=== PATIENT | male | born 1950 | race Caucasian/White ===

== ENCOUNTER 2018-06-02 22:47 | Inpatient (IN) ==
--- NOTE | 2018-06-03 01:55 | CT ---
EXAM DATE: 06/03/2018 1:37 AM EST AGE/SEX: 68 years / Male INDICATIONS: Altered mental status. CLINICAL DATA: This is the patient's initial encounter. Patient reports that signs and symptoms have been present for 1 day and indicates a pain score of Nonresponsive. MEDICAL/SURGICAL HISTORY: Non-responsive. Non-responsive. RADIATION DOSE: 56.35 CTDI (mGy) COMPARISON: . TECHNIQUE: CT of the head without contrast. Using automated exposure control and adjustment of the mA and/or kV according to patient size, radiation dose was kept as low as reasonably achievable to ob tain optimal diagnostic quality images. DICOM format image data is available electronically for revi ew and comparison. FINDINGS: There is an area of acute hemorrhage involving the upper right cerebellum and extending between the m idbrain and upper mercedes and medial temporal lobe. Hemorrhage may have originated in the medial temporo -occipital region and extended inferiorly. There is some mild mass effect on the right side of the br ainstem. Remainder the brain is unremarkable. CONCLUSION: 1. Hemorrhage along the posterior aspect of the brainstem as above measuring up to 2.8 cm in maximal diameter. Mild mass effect on the brainstem. No hydrocephalus. Paranasal sinuses are clear. No acute bony abnormality. Electronically signed by: Jeff Gaona MD 06/03/2018 1:54 AM EST
[2018-06-03 02:13] LABS: ABG Base Excess -5.6 mmol/L (-2-2); ABG PCO2 25 mmHg (38-42); ABG PO2 79 mmHg (61-120)
[2018-06-03] MEDS ORDERED: Bisacodyl 10 MG Supp RECTAL PRN (02:21)
[2018-06-03] MEDS ORDERED: niCARdipine Inj 25 MG in Sodium Chlor 0.9% Inj 240 ML IV.CONT PRN (02:28)
--- NOTE | 2018-06-03 02:44 | XR ---
EXAM DATE: 06/03/2018 2:19 AM EST AGE/SEX: 68 years / Male INDICATIONS: Shortness of breath, admit chest x-ray. CLINICAL DATA: This is the patient's initial encounter. Patient reports that signs and symptoms have been present for 1 day and indicates a pain score of Nonresponsive. MEDICAL/SURGICAL HISTORY: Non-responsive. Non-responsive. COMPARISON: No prior exams available for comparison. FINDINGS: A single AP view of the chest demonstrates the lungs to be symmetrically aerated without evidence of mass, infiltrate or effusion. The cardiomediastinal contours are unremarkable. Osseous structures a re intact. CONCLUSION: Negative examination. Electronically signed by: Jeff Gaona MD 06/03/2018 2:43 AM EST
[2018-06-03] MEDS ORDERED: Sodium Bicarbonate 8.4% Inj 50 MEQ/50 ML Syringe IV.PUSH ONE (03:03)
--- NOTE | 2018-06-03 03:06 | P.HPCC ---
History of Present Illness Primary Care Physician: UNKNOWN Chief Complaint: Altered mental status History of Present Illness: Patient is a 68-year-old male with past medical history significant for type 2 diabetes, hypertension, morbid obesity who presented to the [facility] emergency department with weakness and slurred speech. Symptoms present for 2 days, apparently he was found on the floor of his mobile home. He was noted to have high fever at the [facility] his WBC count was 21.3 UA was positive. His sodium was 134 BUN 50 with a creatinine of 2.33 bicarb was 16 lactic acid was 6.8. CPK more than 3000 at the outside hospital. A CT of the head showed focal hemorrhage into the right quadrigeminal plate cistern. Dr. Hopkins was contacted who accepted the patient and requested admission to critical care. Patient was accepted to [facility] at [place] I evaluated the patient in the [facility], he is lying in the bed. Slightly tachypneic moderate distress. Patient is oriented to place and person. CT of the head repeated here at [place] showed hemorrhage along the posterior aspect of the brainstem measuring up to 2.8 cm in maximal diameter. Mild mass effect on the brainstem. No hydrocephalus. I have started the patient on Cardene infusion for tight blood pressure control. Zosyn for UTI. 2% saline will be started to keep sodium above 150. Avoid mannitol due to renal failure. Keppra for seizure prophylaxis. I am unable to find coags but platelet count was normal - Diagnosis (1) Brain stem hemorrhage (2) Encephalopathy acute (3) Acute kidney failure (4) Severe sepsis (5) Metabolic acidemia (6) UTI (urinary tract infection) (7) Lactic acidosis (8) Rhabdomyolysis (9) Obesity (10) Hypertension (11) Diabetes Inpatient Certification: I certify that the inpatient services were ordered in accordance with Medicare regulations governing the order. This includes certification that hospital inpatient services are reasonable and necessary and in the case of services not specified as inpatient-only under 42 CFR 419.22(n), that they are appropriately provided as inpatient services in accordance to with the 2-midnight benchmark under 43 CFR 412.3(e) Estimated Total Length of Stay (Days): 7 Plans for Post Hospital Care: Not yet determined Review of Systems All other systems reviewed negative except as stated in [facility] - History History Provided By: Patient - Tobacco History Tobacco Use In Past 30 Days: Yes Smoking Status: Smoker, status unknown Tobacco Type: Cigarettes - Alcohol History How Often Do You Have a Drink Containing Alcohol: Never - Substance Use History Substance History: No History of Abuse Medications and Allergies Active Medications: Active Medications Acetaminophen (Tylenol) 650 mg PO Q6H PRN PRN Reason: PAIN 1-10 AND/OR FEVER >101F Al Hydroxide/Mg Hydroxide (Milk Of Magnesia Liq) 30 ml PO Q12H PRN PRN Reason: Mild Constipation Albuterol (Duoneb Neb (Prn)) 1 ampul NEB Q2HR NEB PRN PRN Reason: WHEEZING Bisacodyl (Dulcolax Supp) 10 mg RECTAL DAILY PRN PRN Reason: SEVERE CONSITIPATION Chlorhexidine Gluconate (Chlorhexidine 2% Cloth) 3 pack TOPICAL DAILY@0400 JACOB Stop: 06/08/18 03:59 Chlorhexidine Gluconate (Chlorhexidine 2% Cloth) 3 pack TOPICAL DAILY@0400 PRN PRN Reason: Extra cloth needed Stop: 06/08/18 03:59 Famotidine (Pepcid Pf Inj) 20 mg IV.PUSH Q12HR JACOB Sodium Chloride (Ns Inj) 1,000 mls @ 84 mls/hr IV.CONT .[id number] JACOB Nicardipine HCl 25 mg/ Sodium (Chloride) 250 mls @ 50 mls/hr IV.CONT TITRATE PRN; Protocol PRN Reason: Per Protocol Lactulose (Lactulose Liq) 30 ml PO DAILY PRN PRN Reason: SEVERE CONSITIPATION Senna/Docusate Sodium (Shasha-Colace) 1 tab PO BID [facility] Sennosides (Senokot) 17.2 mg PO Q12H PRN PRN Reason: Moderate Constipation Sodium Chloride (Ns Flush) 2 ml IV.FLUSH BID JACOB Sodium Chloride (Ns Flush) 2 ml IV.FLUSH PRN PRN PRN Reason: FLUSH AFTER USING IV ACCESS Allergies Allergy/AdvReac Type Severity Reaction Status Date / Time No Known Allergies Allergy Verified 06/03/18 01:32 Results - Imaging Impressions Chest X-Ray 06/03/18 00:00 CONCLUSION: Negative examination. Head CT 06/03/18 00:00 CONCLUSION: 1. Hemorrhage along the posterior aspect of the brainstem as above measuring up to 2.8 cm in maximal diameter. Mild mass effect on the brainstem. No hydrocephalus. Paranasal sinuses are clear. No acute bony abnormality. Exam Vital signs: Vital Signs 06/03/18 01:00 Pulse Rate 99 H Intake & Output 06/02/18 06/02/18 06/03/18 06:59 18:59 06:59 Weight 133 kg Other: Date of Last Bowel Movement 06/02/18 Weight On Admission 133.5 kg Narrative: GENERAL: 68-year-old male lying in ICU bed in moderate distress, tachypneic SKIN: Focused skin assessment warm/dry. HEAD: Atraumatic. Normocephalic. EYES: Pupils equal and round. No scleral icterus. No injection or drainage. ENT: No nasal bleeding or discharge. Oral cavity dry NECK: Trachea midline. No JVD. CARDIOVASCULAR: S1-S2 distant. No murmurs. Hypotensive RESPIRATORY: No accessory muscle use, but tachypneic. Air entry diminished at the bases GASTROINTESTINAL: Abdomen soft, non-tender, nondistended. MUSCULOSKELETAL: No obvious deformities. No clubbing. No cyanosis. No edema. NEUROLOGICAL: Awake and alert oriented to person and place slightly slurred speech no obvious cranial nerve deficits. Motor grossly within normal limits although there is generalized weakness. Septic Shock Reassessment Septic shock perfusion: reassessment completed Caprini VTE Risk Assessment Caprini VTE Risk Assessment: Moderate/High Risk (score >= 2) Caprini Risk Assessment Model: Point Value = 1 Point Value = 2 Point Value = 3 Point Value = 5 Age 41-60 Minor surgery BMI > 25 kg/m2 Swollen legs Varicose veins or History of unexplained or recurrent spontaneous Oral contraceptives or hormone replacement Sepsis (< 1 month) Serious lung disease, including pneumonia (< 1 month) Abnormal pulmonary function Acute myocardial infarction Congestive heart failure (< 1 month) History of inflammatory bowel disease Medical patient at bed rest Age 61-74 Arthroscopic surgery Major open surgery (> 45 min) Laparoscopic surgery (> 45 min) Malignancy Confined to bed (> 72 hours) Immobilizing plaster cast Central venous access Age >= 75 History of VTE Family history of VTE Factor V Leiden Prothrombin [id number] Lupus anticoagulant Anticardiolipin antibodies Elevated serum homocysteine Heparin-induced thrombocytopenia Other congenital or acquired thrombophilia Stroke (< 1 month) Elective arthroplasty Hip, pelvis, or leg fracture Acute spinal cord injury (< 1 month) Prophylaxis Regimen: Total Risk Factor Score Risk Level Prophylaxis Regimen 0-1 Low Early ambulation 2 Moderate Order ONE of the following: *Sequential Compression Device (SCD) *Heparin 5000 units SQ BID 3-4 Higher Order ONE of the following medications: *Heparin 5000 units SQ TID *Enoxaparin/Lovenox 40 mg SQ daily (WT < 150 kg, CrCl > 30 mL/min) *Enoxaparin/Lovenox 30 mg SQ daily (WT < 150 kg, CrCl > 10-29 mL/min) *Enoxaparin/Lovenox 30 mg SQ BID (WT < 150 kg, CrCl > 30 mL/min) AND/OR *Sequential Compression Device (SCD) 5 or more Highest Order ONE of the following medications: *Heparin 5000 units SQ TID (Preferred with Epidurals) *Enoxaparin/Lovenox 40 mg SQ daily (WT < 150 kg, CrCl > 30 mL/min) *Enoxaparin/Lovenox 30 mg SQ daily (WT < 150 kg, CrCl > 10-29 mL/min) *Enoxaparin/Lovenox 30 mg SQ BID (WT < 150 kg, CrCl > 30 mL/min) AND *Sequential Compression Device (SCD) Assessment and Plan - Problem List (1) 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 Status: Acute (2) Encephalopathy acute Code(s): G93.40 - Encephalopathy, unspecified Status: Acute (3) Acute kidney failure Code(s): N17.9 - Acute kidney failure, unspecified Status: Acute (4) Severe sepsis Code(s): A41.9 - Sepsis, unspecified organism; R65.20 - Severe sepsis without septic shock Status: Acute (5) Metabolic acidemia Code(s): E87.2 - Acidosis Status: Acute (6) UTI (urinary tract infection) Code(s): N39.0 - Urinary tract infection, site not specified Status: Acute (7) Lactic acidosis Code(s): E87.2 - Acidosis Status: Acute (8) Rhabdomyolysis Code(s): M62.82 - Rhabdomyolysis Status: Acute (9) Obesity Code(s): E66.9 - Obesity, unspecified Status: Chronic (10) Hypertension Code(s): I10 - Essential (primary) hypertension Status: Chronic (11) Diabetes Code(s): E11.9 - Type 2 diabetes mellitus without complications Status: Chronic - Assessment and Plan Plan: NEURO: Brainstem hemorrhage measuring up to 2.8 cm in maximal diameter, mild mass effect Acute encephalopathy -Repeat CT findings as above, may need CT angiogram of brain and neck once creatinine is improved -Neurosurgery Dr. Hopkins consult -Check coags -2% saline to keep sodium 150-155 -Close neuro monitoring -If he develops hydrocephalus will need EVD -Likely hypertensive bleed -Placed on Keppra for seizure prophylaxis RESP: Past smoking -DuoNeb every as needed -Monitor closely for airway protection -At high risk for respiratory decompensation and requiring intubation CV: Lactic acidemia History of hypertension -Lactic acid at the outside hospital was 6.8 -Normal saline IV fluids, check 2d echo -IV fluid normal saline and 2% saline -Cardene infusion to keep blood pressure less than 140/90 GI: -N.p.o., IV famotidine : Acute kidney failure Rhabdomyolysis -Monitor renal function closely. Place [place] catheter. -IV fluid resuscitation and maintenance fluid as above -Check renal ultrasound ID: Severe sepsis/septic shock UTI -Antibiotics with Zosyn renally dosed -Blood urine cultures HEME: Leukocytosis secondary to sepsis -Monitor CBC, coags ENDO: Type 2 diabetes -Sliding scale insulin PROPH: -Bilateral lower extremity SCDs. IV famotidine. Chemical DVT prophylaxis is contraindicated LINES: -Utilize peripheral IVs, central line if needed CC time 82 min Code Status: Full H&P: Quality - VTE Deep Vein Thrombosis/Pulmonary Embolism Present on Admission: No (1) Brain stem hemorrhage Qualifiers: Intracerebral hemorrhage etiology: nontraumatic
[2018-06-03] MEDS: Sod Chloride 0.9% Inj 1,000 ML IV.CONT SCH ×2 (03:32→14:30)
[2018-06-03] MEDS: Chlorhexidine Gluconate 2% 1 Pack (2 Cloths) TOPICAL SCH (03:33)
[2018-06-03] MEDS ORDERED: Dextrose 50% in Water 50 ML Vial IV.PUSH PRN (03:34)
[2018-06-03] MEDS ORDERED: Chlorhexidine Gluconate 2% 1 Pack (2 Cloths) TOPICAL PRN (04:00)
[2018-06-03] MEDS: Piperacil/Tazo 3.375 GM Premix 50 ML IV.SIG SCH ×3 (04:26→20:30)
[2018-06-03] MEDS: Sodium Chloride 23.4% Inj 188 MEQ in Sod Chloride 0.9% Inj 1,000 ML IV.CONT SCH (04:26)
[2018-06-03] MEDS: Sod Chloride 0.9% Inj 1,000 ML IV.SIG SCH ×2 (04:47→05:05)
[2018-06-03] MEDS: Insulin NovoLIN Regular Correctional Sugar Inj SQ SCH ×6 (04:48→23:52)
[2018-06-03 05:54] LABS: Hematocrit 33.1 % (39.0-51.0); Hemoglobin 11.2 gm/dL (13.0-17.0); Mean Corpuscular HGB Conc 33.8 % (32.0-36.0); Mean Corpuscular Hemoglobin 29.8 pg (27.0-34.0); Mean Corpuscular Volume 88.1 fL (80.0-100.0); Mean Platelet Volume 8.6 fL (7.0-11.0); Platelet Count 97 th/mm3 (150-450); Red Blood Count 3.76 mil/mm3 (4.50-5.90); Red Cell Distribution Width 16.1 % (11.6-17.2); White Blood Count 11.5 th/mm3 (4.0-11.0)
[2018-06-03 06:10] LABS: Amorphous Sediment,Urine Occasional /hpf; Bacteria,Urine Rare /hpf; Bilirubin,Urine Negative (Negative); Clarity,Urine Hazy (Clear); Color,Urine Yellow (Yellw/Straw); Glucose,Urine (UA) 50 mg/dL (Negative); Leukocyte Esterase,Urine Small (Negative); Mucus,Urine Few /lpf (Occasional); Nitrite,Urine Negative (Negative); Specific Gravity,Urine 1.019 (1.002-1.035); Squamous Epithelial Cell,Urine <1 /hpf (0-5)
[2018-06-03 06:19] LABS: Albumin 2.4 g/dL (3.4-5.0); Calcium 7.2 mg/dL (8.5-10.1); Carbon Dioxide 19.6 meq/L (21.0-32.0); Magnesium 2.2 mg/dL (1.5-2.5); Potassium 3.5 meq/L (3.5-5.1)
[2018-06-03] MEDS ORDERED: Labetalol HCl Inj 20 MG/4 ML Vial IV.PUSH PRN (08:17)
--- NOTE | 2018-06-03 08:34 | P.CONNS ---
History of Present Illness Service: neurosurgery Consult date: 06/03/18 Requesting Physician: Loco Deluca Reason for Consult: brainstem hemorrhage Primary Care Provider: UNKNOWN Chief Complaint: Altered mental status History of Present Illness: this is a 68-year-old male with past medical history of type 2 diabetes, hypertension, morbid obesity who presented to the [facility] emergency department with weakness and slurred speech. Symptoms present for 2 days, apparently he was found on the floor of his mobile home. He was noted to have high fever at the [facility] his WBC count was 21.3 UA was positive. His sodium was 134 BUN 50 with a creatinine of 2.33 bicarb was 16 lactic acid was 6.8. he had multi[ple problems including metabolic acidosis, Urine infection, and renal failure. No LOC. No seizure activity. no tongue bitting. no incontinence of stool or urine. he was lethargic A CT of the head showed focal hemorrhage into the right quadrigeminal plate cistern. Neurosurgery consultation was requested His family history was reviewed and was noncontributory to this admission Review of Systems All other systems reviewed negative except as stated in HPI PMFSH - History History Provided By: Patient - Medical History Medical History: Medical History (Last Reviewed 06/06/18 @ 14:02 by Karthik Hopkins MD) Diabetes History of MRSA infection Onset Date: ~06/03/18 Hypertension Obesity UTI (urinary tract infection) - Tobacco History Tobacco Use In Past 30 Days: Yes Smoking Status: Smoker, status unknown Tobacco Type: Cigarettes - Alcohol History How Often Do You Have a Drink Containing Alcohol: Never - Substance Use History Substance History: No History of Abuse Medications and Allergies Active Medications: Active Medications Acetaminophen (Tylenol) 650 mg PO Q6H PRN PRN Reason: PAIN 1-10 AND/OR FEVER >101F Al Hydroxide/Mg Hydroxide (Milk Of Magnesia Liq) 30 ml PO Q12H PRN PRN Reason: Mild Constipation Albuterol (Duoneb Neb (Prn)) 1 ampul NEB Q2HR NEB PRN PRN Reason: WHEEZING Bisacodyl (Dulcolax Supp) 10 mg RECTAL DAILY PRN PRN Reason: SEVERE CONSITIPATION Chlorhexidine Gluconate (Chlorhexidine 2% Cloth) 3 pack TOPICAL DAILY@0400 [facility] Stop: 06/08/18 03:59 Last Admin: 06/03/18 03:33 Dose: 3 pack Chlorhexidine Gluconate (Chlorhexidine 2% Cloth) 3 pack TOPICAL DAILY@0400 PRN PRN Reason: Extra cloth needed Stop: 06/08/18 03:59 Dextrose (D50w Vial) 50 ml IV.PUSH UNSCH PRN PRN Reason: PER HYPOGLYCEMIA PROTOCOL Famotidine (Pepcid Pf Inj) 20 mg IV.PUSH Q12HR JACOB Glucagon (Glucagon Inj) 1 mg OTHER PRN PRN PRN Reason: for Hypoglycemia Protocol Sodium Chloride (Ns Inj) 1,000 mls @ 84 mls/hr IV.CONT .[id number] JACOB Last Admin: 06/03/18 03:32 Dose: 84 mls/hr Piperacillin/Tazobactam/Dextrose (Zosyn 3.375 Gm Premix) 50 mls @ 100 mls/hr IV.SIG Q8H JACOB Last Infusion: 06/03/18 05:07 Dose: Infused Sodium Chloride 188 meq/ (Sodium Chloride) 1,047 mls @ 42 mls/hr IV.CONT .Q24H JACOB Last Admin: 06/03/18 04:26 Dose: 42 mls/hr Levetiracetam 500 mg/ Sodium (Chloride) 105 mls @ 400 mls/hr IV.SIG Q12H JACOB Last Infusion: 06/03/18 05:08 Dose: Infused Insulin Human Regular (Novolin R Correctional Sugar Inj) 0 units SQ Q4HR JACOB; Protocol Last Admin: 06/03/18 04:48 Dose: 1 units Labetalol HCl (Trandate Inj) 10 mg IV.PUSH Q2H PRN PRN Reason: BP > 140/90 Lactulose (Lactulose Liq) 30 ml PO DAILY PRN PRN Reason: SEVERE CONSITIPATION Senna/Docusate Sodium (Shasha-Colace) 1 tab PO BID [facility] Sennosides (Senokot) 17.2 mg PO Q12H PRN PRN Reason: Moderate Constipation Sodium Chloride (Ns Flush) 2 ml IV.FLUSH BID JACOB Sodium Chloride (Ns Flush) 2 ml IV.FLUSH PRN PRN PRN Reason: FLUSH AFTER USING IV ACCESS Allergies Allergy/AdvReac Type Severity Reaction Status Date / Time No Known Allergies Allergy Verified 06/03/18 01:32 Exam Vital signs: Vital Signs 06/03/18 01:00 06/03/18 01:08 06/03/18 01:10 Temperature Pulse Rate 99 H Respiratory Rate Blood Pressure Pulse Oximetry 78 L 78 L 06/03/18 01:14 06/03/18 01:29 06/03/18 01:44 Temperature Pulse Rate 105 H 107 H Respiratory Rate 34 H 32 H Blood Pressure 142/73 H 142/74 H 147/74 H Pulse Oximetry 98 100 06/03/18 01:59 06/03/18 02:00 06/03/18 02:14 Temperature Pulse Rate 101 H 101 H 102 H Respiratory Rate 32 H 31 H 31 H Blood Pressure 130/65 126/65 Pulse Oximetry 98 98 98 06/03/18 02:29 06/03/18 02:44 06/03/18 02:59 Temperature Pulse Rate 98 H 104 H 107 H Respiratory Rate 30 H 31 H 32 H Blood Pressure 143/72 H 146/74 H 151/74 H Pulse Oximetry 100 100 100 06/03/18 03:00 06/03/18 03:14 06/03/18 03:29 Temperature Pulse Rate 107 H 107 H 109 H Respiratory Rate 34 H 34 H 33 H Blood Pressure 154/74 H 154/72 H Pulse Oximetry 100 98 99 06/03/18 03:44 06/03/18 03:59 06/03/18 04:00 Temperature 99.0 F Pulse Rate 113 H 114 H 115 H Respiratory Rate 35 H 34 H 36 H Blood Pressure 142/64 H 146/70 H Pulse Oximetry 95 96 96 06/03/18 04:14 06/03/18 04:29 06/03/18 04:44 Temperature Pulse Rate 105 H 113 H 115 H Respiratory Rate 29 H 35 H 36 H Blood Pressure 149/71 H 147/63 H 151/70 H Pulse Oximetry 99 97 97 06/03/18 04:59 06/03/18 05:00 06/03/18 05:14 Temperature Pulse Rate 112 H 114 H 106 H Respiratory Rate 36 H 35 H 31 H Blood Pressure 134/56 L 129/63 Pulse Oximetry 95 95 96 06/03/18 05:29 06/03/18 05:44 06/03/18 05:59 Temperature Pulse Rate 112 H 115 H 107 H Respiratory Rate 35 H 35 H 32 H Blood Pressure 135/65 143/68 H 132/57 L Pulse Oximetry 96 96 95 06/03/18 06:00 Temperature Pulse Rate 106 H Respiratory Rate 31 H Blood Pressure Pulse Oximetry 95 Intake & Output 06/02/18 06/03/18 06/03/18 18:59 06:59 18:59 Intake Total 2154 / 5 Output Total 700 / 700 Balance 1455 / 1455 Weight 133 kg Intake: IV 2154 / 2154 Zosyn 3.375 GM Premix 50 ML @ 50 / 50 100 mls/hr IV.SIG Q8H JACOB Rx#: [id number] NS Inj 1,000 ML @ 2000 mls/hr 2000 / 2000 IV.SIG Q30M JACOB Rx#:[id number] Keppra Inj 500 MG In NS Inj 100 105 / 105 ML @ 400 mls/hr IV.SIG Q12H JACOB Rx#:[id number] Oral 0 / 0 Output: Urine Amount (Catheter) 700 / 700 Indwelling Urethral Catheter 700 / 700 Other: Date of Last Bowel Movement 06/02/18 Weight On Admission 133.5 kg Narrative: GENERAL: lying in ICU bed in moderate distress, tachypneic SKIN: Focused skin assessment warm/dry. HEAD: Atraumatic. Normocephalic. EYES: Pupils equal and round. No scleral icterus. No injection or drainage. ENT: No nasal bleeding or discharge. Oral cavity dry NECK: Trachea midline. No JVD. CARDIOVASCULAR: S1-S2 distant. No murmurs. Hypotensive RESPIRATORY: No accessory muscle use, but tachypneic. Air entry diminished at the bases GASTROINTESTINAL: Abdomen soft, non-tender, nondistended. MUSCULOSKELETAL: No obvious deformities. No clubbing. No cyanosis. No edema. NEUROLOGICAL: Awake and alert oriented to person and place slightly slurred speech no obvious cranial nerve deficits. Motor grossly shows generalized weakness. Results - Laboratory Findings CBC and BMP: 06/05/18 04:07 06/06/18 04:13 Abnormal lab findings: Abnormal Labs 06/03/18 06/03/18 06/03/18 02:03 04:43 05:20 WBC 11.5 H RBC 3.76 L Hgb 11.2 L Hct 33.1 L Plt Count 97 L ABG pH 7.46 H ABG pCO2 25 L ABG HCO3 18 L ABG Base Excess -5.6 L Chloride Carbon Dioxide BUN Creatinine Estimated GFR POC Glucose 181 H Random Glucose Calcium Calcium Adj for Albumin AST Alkaline Phosphatase Total Protein Albumin Urine Clarity Urine Protein Urine Occult Blood Ur Leukocyte Esterase Urine RBC Urine WBC Amorphous Sediment Urine Bacteria Urine Mucus 06/03/18 06/03/18 06/03/18 05:20 05:20 08:16 WBC RBC Hgb Hct Plt Count ABG pH ABG pCO2 ABG HCO3 ABG Base Excess Chloride 112 H Carbon Dioxide 19.6 L BUN 46 H Creatinine 1.56 H Estimated GFR 44 L POC Glucose 251 H Random Glucose 200 H Calcium 7.2 L* Calcium Adj for Albumin 7.8 L AST 91 H Alkaline Phosphatase 38 L Total Protein 6.0 L Albumin 2.4 L Urine Clarity Hazy H Urine Protein 30 H Urine Occult Blood Large H Ur Leukocyte Esterase Small H Urine RBC 6 H Urine WBC 44 H Amorphous Sediment Occasional H Urine Bacteria Rare H Urine Mucus Few H Assessment and Plan - Plan 68 year old male - Problem List (1) 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 Status: Acute (2) Encephalopathy acute Code(s): G93.40 - Encephalopathy, unspecified Status: Acute (3) Acute kidney failure Code(s): N17.9 - Acute kidney failure, unspecified Status: Acute (4) Severe sepsis Code(s): A41.9 - Sepsis, unspecified organism; R65.20 - Severe sepsis without septic shock Status: Acute (5) Metabolic acidemia Code(s): E87.2 - Acidosis Status: Acute (6) UTI (urinary tract infection) Code(s): N39.0 - Urinary tract infection, site not specified Status: Acute (7) Lactic acidosis Code(s): E87.2 - Acidosis Status: Acute (8) Rhabdomyolysis Code(s): M62.82 - Rhabdomyolysis Status: Acute (9) Obesity Code(s): E66.9 - Obesity, unspecified Status: Chronic (10) Hypertension Code(s): I10 - Essential (primary) hypertension Status: Chronic (11) Diabetes Code(s): E11.9 - Type 2 diabetes mellitus without complications Status: Chronic I have reviewed the clinical and radiological findings Chest X-Ray 06/03/18 00:00 CONCLUSION: Negative examination. Head CT 06/03/18 00:00 CONCLUSION: 1. Hemorrhage along the posterior aspect of the brainstem as above measuring up to 2.8 cm in maximal diameter. Mild mass effect on the brainstem. No hydrocephalus. Paranasal sinuses are clear. No acute bony abnormality. Brainstem hemorrhage. Neuro checks q1 hr. [address] angiogram of brain and neck once creatinine is improved -Check coags -2% saline to keep sodium 150-155 -Close neuro monitoring -If he develops hydrocephalus will need external ventriculostomy -Likely hypertensive bleed Consult neurology RESP: aggressive pulmonary toilette, nasotracheal suction, and breathing treatments with nebulizers. - Nasal canula or mask -DuoNeb every as needed -Monitor closely for airway protection -At high risk for respiratory decompensation and requiring intubation Lactic acidemia History of hypertension -Lactic acid at the outside hospital was 6.8 -Normal saline IV fluids, check 2d echo -IV fluid normal saline and 2% saline -Cardene infusion to keep blood pressure less than 140/90 Acute kidney failure Rhabdomyolysis -Monitor renal function closely. Place Hays catheter. -IV fluid resuscitation and maintenance fluid as above -Check renal ultrasound Severe sepsis/septic shock UTI -Antibiotics with Zosyn renally dosed -Blood urine cultures HEME: Leukocytosis secondary to sepsis -Monitor CBC, coags ENDO: Type 2 diabetes -Sliding scale insulin PT and OT evaluation Famotidine for stress ulcer prophylaxis Pal hose and SCD's for DVT prophylaxis Caprini VTE Risk Assessment Caprini VTE Risk Assessment: Moderate/High Risk (score >= 2) Caprini Risk Assessment Model: Point Value = 1 Point Value = 2 Point Value = 3 Point Value = 5 Age 41-60 Minor surgery BMI > 25 kg/m2 Swollen legs Varicose veins or History of unexplained or recurrent spontaneous Oral contraceptives or hormone replacement Sepsis (< 1 month) Serious lung disease, including pneumonia (< 1 month) Abnormal pulmonary function Acute myocardial infarction Congestive heart failure (< 1 month) History of inflammatory bowel disease Medical patient at bed rest Age 61-74 Arthroscopic surgery Major open surgery (> 45 min) Laparoscopic surgery (> 45 min) Malignancy Confined to bed (> 72 hours) Immobilizing plaster cast Central venous access Age >= 75 History of VTE Family history of VTE Factor V Leiden Prothrombin [id number] Lupus anticoagulant Anticardiolipin antibodies Elevated serum homocysteine Heparin-induced thrombocytopenia Other congenital or acquired thrombophilia Stroke (< 1 month) Elective arthroplasty Hip, pelvis, or leg fracture Acute spinal cord injury (< 1 month) Prophylaxis Regimen: Total Risk Factor Score Risk Level Prophylaxis Regimen 0-1 Low Early ambulation 2 Moderate Order ONE of the following: *Sequential Compression Device (SCD) *Heparin 5000 units SQ BID 3-4 Higher Order ONE of the following medications: *Heparin 5000 units SQ TID *Enoxaparin/Lovenox 40 mg SQ daily (WT < 150 kg, CrCl > 30 mL/min) *Enoxaparin/Lovenox 30 mg SQ daily (WT < 150 kg, CrCl > 10-29 mL/min) *Enoxaparin/Lovenox 30 mg SQ BID (WT < 150 kg, CrCl > 30 mL/min) AND/OR *Sequential Compression Device (SCD) 5 or more Highest Order ONE of the following medications: *Heparin 5000 units SQ TID (Preferred with Epidurals) *Enoxaparin/Lovenox 40 mg SQ daily (WT < 150 kg, CrCl > 30 mL/min) *Enoxaparin/Lovenox 30 mg SQ daily (WT < 150 kg, CrCl > 10-29 mL/min) *Enoxaparin/Lovenox 30 mg SQ BID (WT < 150 kg, CrCl > 30 mL/min) AND *Sequential Compression Device (SCD)
[2018-06-03] MEDS: Senna/Docusate Sodium 8.6/50 MG Tablet PO SCH ×2 (08:38→20:32)
[2018-06-03] MEDS: Famotidine PF Inj 20 MG/2 ML Vial IV.PUSH SCH ×2 (08:38→20:32)
[2018-06-03] MEDS: Labetalol HCl Inj 100 MG/20 ML Vial IV.PUSH PRN ×4 (08:46→18:52)
--- NOTE | 2018-06-03 09:12 | US ---
EXAM DATE: 06/03/2018 9:07 AM EST AGE/SEX: 68 years / Male INDICATIONS: Increased BUN/Creatinine. CLINICAL DATA: This is the patient's initial encounter. Patient reports that signs and symptoms have been present for 1 day and indicates a pain score of 0/10. MEDICAL/SURGICAL HISTORY: Hypertension. Diabetes. Brain stem hemorrhage. Sepsis. Rhabdomyolysi s. None. COMPARISON: No prior exams available for comparison. MEASUREMENTS: Right Kidney:__11.8 x 7.1 x 6.4 cm Left Kidney:__13.4 x 6.0 x 5.4 cm FINDINGS: Right Kidney: The examination demonstrates a 9.6 x 7.0 x 7.2 cm anechoic cyst arising from the midpol e. There is no hydronephrosis. Renal cortex appears of adequate thickness. Left Kidney: The examination demonstrates a 3.5 x 4.4 x 3.7 cm cyst arising from the midpole. There i s no hydronephrosis. The cortex appears of adequate thickness. Bladder: Hays catheter is present. Bladder decompressed. Other: None. CONCLUSION: 1. Bilateral simple cysts within the kidneys as above. 2. No findings to indicate renal obstruction. 3. Renal cortex appears of adequate thickness. Electronically signed by: Aguilar Knowles MD 06/03/2018 9:11 AM EST
[2018-06-03] MEDS: amLODIPine 10 MG Tablet PO SCH (13:39)
[2018-06-03] MEDS: Metoprolol Inj 5 MG/5 ML Vial IV.PUSH SCH ×2 (14:32→20:31)
[2018-06-03 14:36] LABS: Hematocrit 36.9 % (39.0-51.0); Hemoglobin 12.5 gm/dL (13.0-17.0); Lymph # (Auto) 0.7 th/mm3 (1.0-4.8); Lymph % (Auto) 5.6 % (9.0-44.0); Mean Corpuscular HGB Conc 33.8 % (32.0-36.0); Mean Corpuscular Hemoglobin 30.3 pg (27.0-34.0); Mean Corpuscular Volume 89.4 fL (80.0-100.0); Mean Platelet Volume 9.2 fL (7.0-11.0); Mono # (Auto) 1.7 th/mm3 (0.0-0.9); Mono % (Auto) 13.2 % (0.0-8.0); Neut # (Auto) 10.2 th/mm3 (1.8-7.7); Neut % (Auto) 81.2 % (16.0-70.0); Platelet Count 116 th/mm3 (150-450); Red Blood Count 4.13 mil/mm3 (4.50-5.90); Red Cell Distribution Width 16.4 % (11.6-17.2); White Blood Count 12.5 th/mm3 (4.0-11.0)
--- NOTE | 2018-06-03 14:39 | XR ---
EXAM DATE: 06/03/2018 2:36 PM EST AGE/SEX: 68 years / Male INDICATIONS: Respiratory failure, short of breath CLINICAL DATA: This is the patient's initial encounter. Patient reports that signs and symptoms have been present for 1 day and indicates a pain score of 0/10. MEDICAL/SURGICAL HISTORY: . Hypertension. Diabetes. Brain stem hemorrhage. Sepsis. Rhabdomyolys is None. COMPARISON: [facility] [place] 1[place] SINGLE AP, [place]/03/2018. . FINDINGS: A single AP view of the chest demonstrates the lungs to be symmetrically aerated without evidence of mass, infiltrate or effusion. The cardiomediastinal contours are unremarkable. Osseous structures a re intact. CONCLUSION: Negative examination. Electronically signed by: Aguilar Knowles MD 06/03/2018 2:38 PM EST
[2018-06-03 15:56] LABS: CKMB Percent 0.3 % (0.0-4.0); Creatine Kinase MB 12.2 ng/mL (0.5-3.6)
[2018-06-03] MEDS ORDERED: Potassium Chlor 40 mEq Premix 40 MEQ/100 ML PIGGYBACK IV.SIG PRN ×2 (16:27)
[2018-06-03] MEDS ORDERED: Potassium Phosphate Inj 30 MMOL in Sodium Chlor 0.9% Inj 250 ML IV.SIG PRN (16:27)
[2018-06-03] MEDS ORDERED: Magnesium Sulfate Inj 4 GM in Sodium Chlor 0.9% Inj 92 ML IV.SIG PRN (16:27)
[2018-06-03] MEDS ORDERED: Potassium Chloride 25 MEQ Effervescent Tablet PO PRN (16:27)
[2018-06-03] MEDS ORDERED: Magnesium Oxide 400 MG Tablet PO PRN (16:27)
[2018-06-03] MEDS ORDERED: Potassium Phosphate 500 MG Soluble Tablet PO PRN ×2 (16:27)
[2018-06-03] MEDS ORDERED: Sodium Phosphate Inj 30 MMOL in Sodium Chlor 0.9% Inj 250 ML IV.SIG PRN (16:27)
[2018-06-03] MEDS ORDERED: Potassium Chlor 20 mEq Premix 20 MEQ/100 ML PIGGYBACK IV.SIG PRN (16:27)
[2018-06-03] MEDS ORDERED: Magnesium Sulfate Inj 2 GM in Sodium Chlor 0.9% Inj 96 ML IV.SIG PRN (16:27)
[2018-06-03] MEDS ORDERED: RASS Change Order OTHER ONE (17:00)
--- NOTE | 2018-06-03 18:14 | CT ---
EXAM DATE: 06/03/2018 6:04 PM EST AGE/SEX: 68 years / Male INDICATIONS: Follow up brain stem hemorrhage. CLINICAL DATA: This is the patient's subsequent encounter. Patient reports that signs and symptoms h ave been present for 1 day and indicates a pain score of 0/10. MEDICAL/SURGICAL HISTORY: Hypertension. Diabetes. Renal failure. None. RADIATION DOSE: 64.63 CTDI (mGy) COMPARISON: [facility] – [place], [place] HEAD W/O CONTRAST, 06/03/2018. . TECHNIQUE: CT of the head without contrast. Using automated exposure control and adjustment of the mA and/or kV according to patient size, radiation dose was kept as low as reasonably achievable to ob tain optimal diagnostic quality images. DICOM format image data is available electronically for revi ew and comparison. FINDINGS: The previously noted high density, acute hemorrhage along the right lateral and posterior brain stem is not significantly changed and measures approximately 2.6 x 0.8 cm in diameter. This extends along the midbrain and upper mercedes and medial right temporal lobe. There is no significant edema or mass eff ect. Diffuse atrophic changes are present. There is no new hemorrhage or mass effect. There is no mid line shift. The ventricular system remains within normal limits. Moderate atrophic changes again iden tified. CONCLUSION: 1. Stable appearance of the acute hemorrhage along the right side of the brainstem. . Electronically signed by: Bello Wagner MD 06/03/2018 6:13 PM EST
[2018-06-03] MEDS: Dexmedetomidine Inj 200 MCG in Sodium Chlor 0.9% Inj 48 ML IV.CONT PRN (18:45)
[2018-06-04] MEDS: Dexmedetomidine Inj 200 MCG in Sodium Chlor 0.9% Inj 48 ML IV.CONT PRN ×4 (00:02→22:33)
[2018-06-04] MEDS: Chlorhexidine Gluconate 2% 1 Pack (2 Cloths) TOPICAL SCH (03:27)
[2018-06-04] MEDS: Metoprolol Inj 5 MG/5 ML Vial IV.PUSH SCH ×4 (03:27→21:55)
[2018-06-04] MEDS: Piperacil/Tazo 3.375 GM Premix 50 ML IV.SIG SCH ×3 (03:28→21:54)
[2018-06-04] MEDS: Insulin NovoLIN Regular Correctional Sugar Inj SQ SCH ×5 (03:40→21:52)
[2018-06-04 03:44] LABS: Hematocrit 33.7 % (39.0-51.0); Hemoglobin 11.3 gm/dL (13.0-17.0); Mean Corpuscular HGB Conc 33.5 % (32.0-36.0); Mean Corpuscular Hemoglobin 29.9 pg (27.0-34.0); Mean Corpuscular Volume 89.2 fL (80.0-100.0); Mean Platelet Volume 9.3 fL (7.0-11.0); Platelet Count 91 th/mm3 (150-450); Red Blood Count 3.78 mil/mm3 (4.50-5.90); White Blood Count 8.2 th/mm3 (4.0-11.0)
[2018-06-04 03:52] LABS: INR 1.2 Ratio; Prothrombin Time 12.3 sec (9.8-11.6)
[2018-06-04 04:20] LABS: Albumin 2.2 g/dL (3.4-5.0); Calcium 7.2 mg/dL (8.5-10.1); Carbon Dioxide 20.5 meq/L (21.0-32.0); Lymphocytes 7 % (9-44); Monocytes 9 % (0-8); Platelet Morphology Normal (Normal); Potassium 3.5 meq/L (3.5-5.1)
[2018-06-04 04:21] LABS: Dohle Bodies Present; Toxic Granulation 1+
[2018-06-04 04:22] LABS: Ovalocytes 1+
[2018-06-04 04:31] LABS: Total Protein 6.1 g/dL (6.4-8.2)
--- NOTE | 2018-06-04 04:59 | CT ---
EXAM DATE: 06/04/2018 4:31 AM EST AGE/SEX: 68 years / Male INDICATIONS: Intracranial hemorrhage. CLINICAL DATA: This is the patient's subsequent encounter. Patient reports that signs and symptoms h ave been present for 1 day and indicates a pain score of 0/10. MEDICAL/SURGICAL HISTORY: None. None. RADIATION DOSE: 47.51 CTDI (mGy) [place] [facility] [place]. . TECHNIQUE: CT of the head without contrast. Using automated exposure control and adjustment of the mA and/or kV according to patient size, radiation dose was kept as low as reasonably achievable to ob tain optimal diagnostic quality images. DICOM format image data is available electronically for revi ew and comparison. FINDINGS: Cerebrum: There is mild generalized atrophy and ventricles are normal given the degree of atrophy. M ild periventricular white matter change is present. No midline shift, mass lesion, hemorrhage or acu te infarction. No extraaxial fluid collections are seen. Posterior Fossa: There is stable hyperdensity along the right lateral aspect of the midbrain and jimmy s measuring approximately 2.3 x 0.8 cm. It has minimal local mass effect and has not significantly ch anged. Fourth ventricle is within normal limits. Extracranial: The visualized sinuses are clear. Skull: The calvaria is intact. No skull fracture. CONCLUSION: Stable blood products in the posterior fossa, as above. No other acute abnormality is identified. . Electronically signed by: Yosi Argueta MD 06/04/2018 4:58 AM EST
[2018-06-04 05:00] LABS: CKMB Percent 0.1 % (0.0-4.0); Creatine Kinase MB 3.2 ng/mL (0.5-3.6)
[2018-06-04] MEDS: Labetalol HCl Inj 100 MG/20 ML Vial IV.PUSH PRN ×2 (05:47→12:33)
[2018-06-04] MEDS: Sodium Chloride 23.4% Inj 188 MEQ in Sod Chloride 0.9% Inj 1,000 ML IV.CONT SCH (07:55)
[2018-06-04] MEDS: amLODIPine 10 MG Tablet PO SCH (08:24)
[2018-06-04] MEDS: Famotidine PF Inj 20 MG/2 ML Vial IV.PUSH SCH ×2 (08:24→21:55)
[2018-06-04] MEDS: Senna/Docusate Sodium 8.6/50 MG Tablet PO SCH ×2 (08:25→21:56)
[2018-06-04] MEDS: Potassium Chlor 20 mEq Premix 20 MEQ/100 ML PIGGYBACK IV.SIG PRN ×2 (08:42→22:42)
[2018-06-04] MEDS: Sod Chloride 0.9% Inj 1,000 ML IV.CONT SCH ×2 (09:16→17:05)
[2018-06-04] MEDS ORDERED: Vancomycin Inj 2,000 MG in Sodium Chlor 0.9% Inj 500 ML IV.SIG ONE (11:00)
--- NOTE | 2018-06-04 13:39 | ECHRPT ---
Indication: SHORT OF BREATH CONCLUSIONS Normal left ventricular size. Wall thickness is normal. The left ventricular systolic function is normal with an estimated ejection fraction in the range of 60-65%. The left atrial size is mildly dilated. Trace mitral valve regurgitation. Diffuse calcification of the aortic valve. Mild aortic valve regurgitation. The estimated pulmonary arterial pressure is 42 mmHg. There is mild tricuspid valve regurgitation. BP: / HR: Rhythm: MEASUREMENTS (Male / Female) Normal Values Technical Quality: 2D ECHO LV Diastolic Diameter PLAX 5.2 cm 4.2 - 5.9 / 3.9 - 5.3 cm LV Systolic Diameter PLAX 3.5 cm IVS Diastolic Thickness 1.1 cm 0.6 - 1.0 / 0.6 - 0.9 cm LVPW Diastolic Thickness 1.2 cm 0.6 - 1.0 / 0.6 - 0.9 cm LV Relative Wall Thickness 0.4 RV Internal Dim ED PLAX 3.4 cm LVOT Diameter 2.2 cm Aortic Root Diameter 3.5 cm LA Systolic Diameter LX 4.1 cm 3.0 - 4.0 / 2.7 - 3.8 cm LV Ejection Fraction MOD BP 52.9 % >= 55 % LV Ejection Fraction MOD 4C 66.9 % LV Ejection Fraction 4C AL 67.6 % LV Ejection Fraction MOD 2C 35.3 % LV Ejection Fraction 2C AL 37.8 % M-MODE Aortic Root Diameter MM 4.5 cm LA Systolic Diameter MM 1.1 cm LA Ao Ratio MM 0.2 AV Cusp Separation MM 2.6 cm DOPPLER AV Peak Velocity 167.0 cm/s AV Peak Gradient 11.2 mmHg AI Peak Velocity 225.0 cm/s AI Peak Gradient 20.3 mmHg AI Pressure Half Time 304.0 ms Mitral E Point Velocity 93.3 cm/s Mitral A Point Velocity 90.3 cm/s Mitral E to A Ratio 1.0 LV E' Lateral Velocity 10.9 cm/s Mitral E to LV E' Lateral Ratio 8.6 LV E' Septal Velocity 6.7 cm/s Mitral E to LV E' Septal Ratio 13.9 TR Peak Velocity 284.0 cm/s TR Peak Gradient 32.3 mmHg Right Atrial Pressure 10.0 mmHg Pulmonary Artery Systolic Pressu 42.3 mmHg Right Ventricular Systolic Press 42.3 mmHg PV Peak Velocity 102.0 cm/s PV Peak Gradient 4.2 mmHg FINDINGS LEFT VENTRICLE Normal left ventricular size. Wall thickness is normal. The left ventricular systolic function is normal with an estimated ejection fraction in the range of 60-65%. RIGHT VENTRICLE Normal right ventricular size and systolic function. LEFT ATRIUM The left atrial size is mildly dilated. RIGHT ATRIUM The right atrial size is normal. ATRIAL SEPTUM Normal atrial septal thickness without atrial level shunting by limited color doppler interrogation. AORTA The aortic root and proximal ascending aorta are normal in size on limited imaging. MITRAL VALVE Trace mitral valve regurgitation. AORTIC VALVE Diffuse calcification of the aortic valve. Mild aortic valve regurgitation. TRICUSPID VALVE The estimated pulmonary arterial pressure is 42 mmHg. There is mild tricuspid valve regurgitation. PULMONARY VALVE No pulmonary valve regurgitation or stenosis. VESSELS The inferior vena cava is normal in size. PERICARDIUM No pericardial effusion. Nitesh Odonnell MD, FACC, FSCAI (Electronically Signed) Final Date:04 June 2018 13:39
[2018-06-04] MEDS ORDERED: Vancomycin Consult Pharmacy OTHER PRN (13:43)
--- NOTE | 2018-06-04 15:06 | P.CONID ---
History of Present Illness Service: Infectious disease Consult date: 06/04/18 Requesting Physician: Ulises Tinoco Reason for Consult: Evaluate patient with bacteremia Primary Care Provider: UNKNOWN Chief Complaint: Altered mental status History of Present Illness: Patient seen and examined. Records reviewed. Patient is a 68-year-old male, brought into the hospital initially at [facility] for evaluation of weakness and slurred speech. It apparently has been present for several days. He was found on the floor of his mobile home. At [facility] he was found to be febrile, WBC up to 21,000, urinalysis with pyuria, creatinine 2.33, and lactic acid was elevated. CT of the head showed focal hemorrhage in the posterior fossa. Patient was transferred to [facility] for neurosurgical evaluation. Patient since admission has had elevated temperature. His blood cultures done on admission are now reported as growing gram-positive cocci, MRSA. His urine culture is also growing MRSA. On evaluation in the intensive care unit, he is awake, and interactive. He looks slightly tachypneic at rest and and on nasal O2. He has some confusion but mostly his oriented. His chest x-ray is normal. Echo is showing calcification in the aortic valve. No vegetations seen. Infectious disease consultation has been requested to assist with evaluation and treatment of patient with MRSA bacteremia. Review of Systems Constitutional: Reports fever(s) Eyes: Denies discharge, Denies dry eyes Ears, Nose, Mouth, and Throat: Reports nasal discharge, Denies dizziness, Denies headache(s), Denies sore throat Cardiovascular: Reports shortness of breath, Denies chest pain Respiratory: Reports shortness of breath, Denies chest congestion, Denies cough Gastrointestinal: Denies abdominal pain, Denies nausea, Denies pain with swallowing, Denies vomiting Genitourinary: Denies difficulty urinating, Denies painful urination Musculoskeletal: Denies back pain Skin/Breast: Denies rash, Denies sores, Denies wounds Neurologic: Reports abnormal speech PMFSH - History History Provided By: Patient - Medical History Medical History: Medical History (Last Updated 06/04/18 @ 15:01 by Elida Rodriguez MD) Diabetes History of MRSA infection Onset Date: ~06/03/18 Hypertension Obesity UTI (urinary tract infection) - Tobacco History Second Hand Smoke Exposure: No Tobacco Use In Past 30 Days: No Smoking Status: Never smoker Tobacco Type: Cigarettes - Alcohol History How Often Do You Have a Drink Containing Alcohol: Never - Substance Use History Substance History: No History of Abuse - Immunization History Tetanus Immunization: >5 Years Hx Influenza Vaccine This Season: No Medications and Allergies Active Medications: Active Medications Acetaminophen (Tylenol) 650 mg PO Q6H PRN PRN Reason: PAIN 1-10 AND/OR FEVER >101F Al Hydroxide/Mg Hydroxide (Milk Of Magnfernando Liq) 30 ml PO Q12H PRN PRN Reason: Mild Constipation Albuterol (Duoneb Neb (Prn)) 1 ampul NEB Q2HR NEB PRN PRN Reason: WHEEZING Last Admin: 06/03/18 19:44 Dose: 1 ampul Amlodipine Besylate (Norvasc) 10 mg PO DAILY [facility] Last Admin: 06/04/18 08:24 Dose: Not Given Bisacodyl (Dulcolax Supp) 10 mg RECTAL DAILY PRN PRN Reason: SEVERE CONSITIPATION Chlorhexidine Gluconate (Chlorhexidine 2% Cloth) 3 pack TOPICAL DAILY@0400 [facility] Stop: 06/08/18 03:59 Last Admin: 06/04/18 03:27 Dose: 3 pack Chlorhexidine Gluconate (Chlorhexidine 2% Cloth) 3 pack TOPICAL DAILY@0400 PRN PRN Reason: Extra cloth needed Stop: 06/08/18 03:59 Clonidine HCl (Catapres) 0.1 mg PO Q6H PRN PRN Reason: SBP>160, DBP>90 Clonidine HCl (Catapress-Tts 0.1 Mg Patch.7d) 1 patch T-DERMAL Q7D [facility] Last Admin: 06/03/18 16:17 Dose: 1 patch Dextrose (D50w Vial) 50 ml IV.PUSH UNSCH PRN PRN Reason: PER HYPOGLYCEMIA PROTOCOL Famotidine (Pepcid Pf Inj) 20 mg IV.PUSH Q12HR [facility] Last Admin: 06/04/18 08:24 Dose: 20 mg Glucagon (Glucagon Inj) 1 mg OTHER PRN PRN PRN Reason: for Hypoglycemia Protocol Sodium Chloride (Ns Inj) 1,000 mls @ 84 mls/hr IV.CONT .[id number] [facility] Last Admin: 06/04/18 09:16 Dose: 84 mls/hr Piperacillin/Tazobactam/Dextrose (Zosyn 3.375 Gm Premix) 50 mls @ 100 mls/hr IV.SIG Q8H [facility] Last Infusion: 06/04/18 14:09 Dose: Infused Sodium Chloride 188 meq/ (Sodium Chloride) 1,047 mls @ 42 mls/hr IV.CONT .Q24H [facility] Last Admin: 06/04/18 07:55 Dose: 42 mls/hr Levetiracetam 500 mg/ Sodium (Chloride) 105 mls @ 400 mls/hr IV.SIG Q12H [facility] Last Infusion: 06/04/18 05:24 Dose: Infused Magnesium Sulfate 4 gm/ Sodium (Chloride) 100 mls @ 50 mls/hr IV.SIG UNSCH PRN PRN Reason: For Magnesium 0.9 - 1.1 mg/dL Potassium Chloride (Kcl 40 Meq Premix Inj) 40 meq in 100 mls @ 25 mls/hr IV.SIG Q2H PRN PRN Reason: For Potassium 2.8 - 3.2 mEq/L Potassium Chloride (Kcl 20 Meq Premix Inj) 20 meq in 100 mls @ 50 mls/hr IV.SIG Q2H PRN PRN Reason: For Potassium 3.3 - 3.5 mEq/L Last Infusion: 06/04/18 10:41 Dose: Infused Potassium Chloride (Kcl 40 Meq Premix Inj) 40 meq in 100 mls @ 25 mls/hr IV.SIG UNSCH PRN PRN Reason: For Potassium 3.3 - 3.5 mEq/L Potassium Chloride (Kcl 20 Meq Premix Inj) 20 meq in 100 mls @ 50 mls/hr IV.SIG Q2H PRN PRN Reason: For Potassium 2.8 - 3.2 mEq/L Potassium Phosphate 30 mmol/ (Sodium Chloride) 260 mls @ 42 mls/hr IV.SIG UNSCH PRN PRN Reason: SEE LABEL COMMENTS Magnesium Sulfate 2 gm/ Sodium (Chloride) 100 mls @ 50 mls/hr IV.SIG UNSCH PRN PRN Reason: For Magnesium 1.2 - 1.6 mg/dL Sodium Phosphate 30 mmol/ (Sodium Chloride) 260 mls @ 42 mls/hr IV.SIG UNSCH PRN PRN Reason: For Phosphorus < 2.5 mg/dL Dexmedetomidine HCl 200 mcg/ (Sodium Chloride) 50 mls @ 6.65 mls/hr IV.CONT TITRATE PRN; Protocol PRN Reason: Per Protocol Last Titration: 06/04/18 12:39 Dose: 0.2 mcg/kg/hr, 6.65 mls/hr Acetaminophen (Ofirmev Inj) 1,000 mg in 100 mls @ 400 mls/hr IV.SIG Q8H PRN PRN Reason: FEVER > 101 F Last Infusion: 06/04/18 10:40 Dose: Infused Vancomycin HCl 2,000 mg/ (Sodium Chloride) 520 mls @ 250 mls/hr IV.SIG Q18H [facility] Insulin Human Regular (Novolin R Correctional Sugar Inj) 0 units SQ Q4HR [facility]; Protocol Last Admin: 06/04/18 11:48 Dose: 1 units Labetalol HCl (Trandate Inj) 10 mg IV.PUSH Q2H PRN PRN Reason: BP > 140/90 Last Admin: 06/04/18 12:33 Dose: 10 mg Lactulose (Lactulose Liq) 30 ml PO DAILY PRN PRN Reason: SEVERE CONSITIPATION Magnesium Oxide (Mag-Ox) 800 mg PO UNSCH PRN PRN Reason: For Magnesium 1.2 - 1.6 mg/dL Metoprolol Tartrate (Lopressor Inj) 2.5 mg IV.PUSH Q6H [facility] Last Admin: 06/04/18 08:24 Dose: 2.5 mg Miscellaneous Information ([facility] Ordered Lab Info) 0 each OTHER ONCE ONE Stop: 06/07/18 10:46 Patch Removal (Remove Old Patch) 1 each T-DERMAL Q7D [facility] Pharmacy Profile Note (Vancomycin Consult Pharmacy) 1 each OTHER UNSCH PRN PRN Reason: Pharmacy to dose Potassium Bicarb/Potassium Chloride (K-Lyte Cl Eff) 50 meq PO UNSCH PRN PRN Reason: For Potassium 3.3 - 3.5 mEq/L Potassium Phosphate (K-Phos Original) 2,000 mg PO Q4H PRN PRN Reason: Phosphorus Less Than 2.5 mg/dL Potassium Phosphate (K-Phos Original) 2,000 mg PO UNSCH PRN PRN Reason: SEE LABEL COMMENTS Senna/Docusate Sodium (Shasha-Colace) 1 tab PO BID [facility] Last Admin: 06/04/18 08:25 Dose: Not Given Sennosides (Senokot) 17.2 mg PO Q12H PRN PRN Reason: Moderate Constipation Sodium Chloride (Ns Flush) 2 ml IV.FLUSH BID [facility] Last Admin: 06/04/18 08:25 Dose: 2 ml Sodium Chloride (Ns Flush) 2 ml IV.FLUSH PRN PRN PRN Reason: FLUSH AFTER USING IV ACCESS Allergies Allergy/AdvReac Type Severity Reaction Status Date / Time No Known Allergies Allergy Verified 06/03/18 01:32 Exam Vital signs: Vital Signs 06/03/18 15:00 06/03/18 15:03 06/03/18 15:15 Temperature Pulse Rate 119 H 119 H 114 H Respiratory Rate 47 H 44 H 38 H Blood Pressure 152/71 H 148/69 H Pulse Oximetry 97 97 97 06/03/18 16:00 06/03/18 16:03 06/03/18 16:14 Temperature Pulse Rate 113 H 114 H 115 H Respiratory Rate 41 H 44 H 37 H Blood Pressure 144/95 H 147/117 H Pulse Oximetry 100 100 06/03/18 16:43 06/03/18 17:00 06/03/18 17:03 Temperature Pulse Rate 116 H 123 H 124 H Respiratory Rate 43 H 50 H 45 H Blood Pressure 163/78 H 160/87 H Pulse Oximetry 100 99 06/03/18 17:39 06/03/18 17:50 06/03/18 18:00 Temperature 98.6 F 98.6 F Pulse Rate 119 H 118 H Respiratory Rate 51 H 41 H Blood Pressure 163/114 H Pulse Oximetry 100 100 06/03/18 18:03 06/03/18 18:50 06/03/18 19:00 Temperature Pulse Rate 117 H 111 H 97 H Respiratory Rate 51 H 37 H 38 H Blood Pressure 160/74 H 171/77 H Pulse Oximetry 100 100 100 06/03/18 19:03 06/03/18 19:12 06/03/18 19:45 Temperature Pulse Rate 96 H 114 H Respiratory Rate 38 H 45 H Blood Pressure 138/66 Pulse Oximetry 100 100 100 06/03/18 20:00 06/03/18 20:03 06/03/18 20:48 Temperature 99.8 F H Pulse Rate 123 H 123 H 103 H Respiratory Rate 46 H 46 H 40 H Blood Pressure 138/66 174/114 H 133/66 Pulse Oximetry 100 100 100 06/03/18 21:00 06/03/18 21:03 06/03/18 22:00 Temperature Pulse Rate 105 H 108 H 96 H Respiratory Rate 41 H 42 H 32 H Blood Pressure 146/71 H 135/64 Pulse Oximetry 100 100 100 06/03/18 22:03 06/03/18 23:00 06/03/18 23:03 Temperature Pulse Rate 101 H 101 H 98 H Respiratory Rate 35 H 35 H 33 H Blood Pressure 135/64 146/67 H Pulse Oximetry 100 100 100 06/04/18 00:00 06/04/18 00:05 06/04/18 00:26 Temperature 97.9 F Pulse Rate 107 H 96 H Respiratory Rate 34 H 32 H Blood Pressure 121/58 L Pulse Oximetry 97 97 97 06/04/18 01:00 06/04/18 02:00 06/04/18 03:00 Temperature Pulse Rate 97 H 96 H 96 H Respiratory Rate 33 H 32 H 33 H Blood Pressure 125/58 L 129/59 L 140/62 Pulse Oximetry 98 97 94 L 06/04/18 04:00 06/04/18 05:00 06/04/18 05:20 Temperature 98.3 F Pulse Rate 94 H 103 H 109 H Respiratory Rate 33 H 36 H 38 H Blood Pressure 135/60 163/77 H Pulse Oximetry 96 98 97 06/04/18 06:00 06/04/18 07:00 06/04/18 08:00 Temperature 101.2 F H Pulse Rate 77 88 90 Respiratory Rate 30 H 32 H 30 H Blood Pressure 119/58 L 139/65 138/63 Pulse Oximetry 99 99 96 06/04/18 09:00 06/04/18 10:00 06/04/18 11:00 Temperature 99.8 F H Pulse Rate 74 72 96 H Respiratory Rate 28 H 29 H 32 H Blood Pressure 114/56 L 130/63 124/60 Pulse Oximetry 98 99 97 06/04/18 12:00 06/04/18 13:00 06/04/18 14:00 Temperature 98.3 F Pulse Rate 96 H 82 72 Respiratory Rate 26 H 30 H 24 Blood Pressure 162/72 H 113/65 114/64 Pulse Oximetry 98 98 96 Intake & Output 06/03/18 06/04/18 06/04/18 18:59 06:59 18:59 Intake Total 1155 / 1155 1255 / 1255 1820 / 1820 Output Total 1600 / 1600 1200 / 1200 Balance -445 / -445 55 / 55 182 / 0 Weight 130.4 kg Intake: IV 1155 / 1155 1255 / 1255 182 / 1820 Precedex Inj 200 MCG In NS Inj 50 / 50 50 / 50 48 ML @ 0.2 MCG/KG/HR 6.65 mls/ hr IV.CONT TITRATE PRN Rx#: [id number] NS Inj 1,000 ML @ 84 mls/hr IV. 1000 / 1000 1000 / 1000 CONT .[id number] [facility] Rx#:[id number] Sodium Chloride 23.4% Inj 188 1000 / 1000 MEQ In NS Inj 1,000 ML @ 42 mls /hr IV.CONT .Q24H [facility] Rx#: [id number] Ofirmev Inj 1,000 mg In 100 ml 100 / 100 @ 400 mls/hr IV.SIG Q8H PRN Rx# :[id number] Zosyn 3.375 GM Premix 50 ML @ 50 / 50 100 / 100 50 / 50 100 mls/hr IV.SIG Q8H [facility] Rx#: [id number] KCl 20 mEq Premix Inj 20 meq In 100 / 100 100 ml @ 50 mls/hr IV.SIG Q2H PRN Rx#:[id number] Vancomycin Inj 2,000 MG In NS 520 / 520 Inj 500 ML @ 250 mls/hr IV.SIG ONCE ONE Rx#:[id number] Keppra Inj 500 MG In NS Inj 100 105 / 105 105 / 105 ML @ 400 mls/hr IV.SIG Q12H [facility] Rx#:[id number] Oral 0 / 0 Output: Urine 1600 / 1600 Urine Amount (Catheter) 1200 / 1200 Indwelling Urethral Catheter 1200 / 1200 Other: Date of Last Bowel Movement 06/02/18 06/02/18 06/02/18 # Bowel Movements 0 Narrative: Physical examination GENERAL: Patient is an obese, well-developed male, awake and alert, not in respiratory distress. He knows the year, president but told me wrong age SKIN: Warm and dry. No generalized rash, no ecchymoses and no evidence of embolic lesions. HEAD: Atraumatic. Normocephalic. No temporal wasting, or tenderness. EYES: [place] conjunctiva. No petechia or hemorrhage. Pupils equal, round and reactive to light. Extraocular movements full and intact. No scleral icterus. No injection or drainage. EARS, NOSE AND THROAT: Nose without bleeding or purulent nasal discharge. No sinus tenderness. Mucous membranes dry NECK: Trachea midline. Supple and not tender, no meningeal signs CARDIOVASCULAR: Regular rate and rhythm. No murmurs, rubs or gallops heard RESPIRATORY: Clear to auscultation. Breath sounds equal bilaterally. No rales , wheezing or rhonchi ABDOMEN: Soft, obese, non-tender, nondistended. Bowel sounds present and normoactive. No guarding. No rebound. No organomegaly. EXTREMITIES: No clubbing, cyanosis, or edema. No joint effusion, has good ROM. No calf tenderness. Well perfused and warm. NEUROLOGICAL: Awake and alert. Full EOM, no facial asymmetry, tongue midline, grossly normal CN. Motor grossly within normal limits. PSYCHIATRIC: calm and cooperative. LINE: No evidence of infection : [place] in place, with sediment Results - Labs CBC & Chem 7: 06/04/18 03:07 06/04/18 03:07 Labs: Laboratory Results - last 24 hr 06/03/18 06/03/18 06/03/18 05:20 14:02 17:19 WBC RBC Hgb Hct MCV MCH MCHC RDW Plt Count MPV Prelim Diff (Auto) WBC Differential Seg Neuts % (Manual) Band Neuts % (Manual) Lymphocytes % (Manual) Monocytes % (Manual) Abs Neuts (Manual) Differential Comment Toxic Granulation Dohle Bodies Platelet Estimate Platelet Morphology Ovalocytes Keratocytes PT INR Sodium Potassium Chloride Carbon Dioxide Anion Gap BUN Creatinine Estimated GFR POC Glucose 245 H Random Glucose Calcium Calcium Adj for Albumin Total Bilirubin AST ALT Alkaline Phosphatase Total Creatine Kinase 4688 H CK-MB (CK-2) 12.2 H CK-MB (CK-2) % 0.3 Total Protein Albumin Urine Color Yellow Urine Clarity Hazy H Urine pH 5.0 Ur Specific [place] 1.019 Urine Protein 30 H Urine Glucose (UA) 50 Urine Ketones Negative Urine Occult Blood Large H Urine Nitrate Negative Urine Bilirubin Negative Urine Urobilinogen Less than 2 Ur Leukocyte Esterase Small H Urine RBC 6 H Urine WBC 44 H Ur Squamous Epith Cells <1 Amorphous Sediment Occasional H Urine Bacteria Rare H Urine Mucus Few H Micro UA Comment Cath-culture ind Urine Culture Comments Cath-cult indicated 06/03/18 06/03/18 06/03/18 20:39 22:29 23:44 WBC RBC Hgb Hct MCV MCH MCHC RDW Plt Count MPV Prelim Diff (Auto) WBC Differential Seg Neuts % (Manual) Band Neuts % (Manual) Lymphocytes % (Manual) Monocytes % (Manual) Abs Neuts (Manual) Differential Comment Toxic Granulation Dohle Bodies Platelet Estimate Platelet Morphology Ovalocytes Keratocytes PT INR Sodium 150 H Potassium Chloride Carbon Dioxide Anion Gap BUN Creatinine Estimated GFR POC Glucose 194 H 229 H Random Glucose Calcium Calcium Adj for Albumin Total Bilirubin AST ALT Alkaline Phosphatase Total Creatine Kinase CK-MB (CK-2) CK-MB (CK-2) % Total Protein Albumin Urine Color Urine Clarity Urine pH Ur Specific [place] Urine Protein Urine Glucose (UA) Urine Ketones Urine Occult Blood Urine Nitrate Urine Bilirubin Urine Urobilinogen Ur Leukocyte Esterase Urine RBC Urine WBC Ur Squamous Epith Cells Amorphous Sediment Urine Bacteria Urine Mucus Micro UA Comment Urine Culture Comments 06/04/18 06/04/18 06/04/18 03:07 03:07 03:07 WBC 8.2 RBC 3.78 L Hgb 11.3 L Hct 33.7 L MCV 89.2 MCH 29.9 MCHC 33.5 RDW 16.0 Plt Count 91 L MPV 9.3 Prelim Diff (Auto) Manual diff required WBC Differential Manual diff final Seg Neuts % (Manual) 81 H Band Neuts % (Manual) 3 Lymphocytes % (Manual) 7 L Monocytes % (Manual) 9 H Abs Neuts (Manual) 6.9 Differential Comment . Toxic Granulation 1+ H Dohle Bodies Present H Platelet Estimate Low L Platelet Morphology Normal Ovalocytes 1+ H Keratocytes Occ H PT 12.3 H INR 1.2 Sodium 149 H Potassium 3.5 Chloride 120 H D Carbon Dioxide 20.5 L Anion Gap 9 BUN 40 H Creatinine 1.57 H Estimated GFR 44 L POC Glucose Random Glucose 191 H Calcium 7.2 L* Calcium Adj for Albumin 7.7 L Total Bilirubin 1.0 AST 137 H ALT 49 Alkaline Phosphatase 40 L Total Creatine Kinase 3523 H CK-MB (CK-2) 3.2 CK-MB (CK-2) % 0.1 Total Protein 6.1 L Albumin 2.2 L Urine Color Urine Clarity Urine pH Ur Specific [place] Urine Protein Urine Glucose (UA) Urine Ketones Urine Occult Blood Urine Nitrate Urine Bilirubin Urine Urobilinogen Ur Leukocyte Esterase Urine RBC Urine WBC Ur Squamous Epith Cells Amorphous Sediment Urine Bacteria Urine Mucus Micro UA Comment Urine Culture Comments 06/04/18 06/04/18 06/04/18 03:34 07:24 11:06 WBC RBC Hgb Hct MCV MCH MCHC RDW Plt Count MPV Prelim Diff (Auto) WBC Differential Seg Neuts % (Manual) Band Neuts % (Manual) Lymphocytes % (Manual) Monocytes % (Manual) Abs Neuts (Manual) Differential Comment Toxic Granulation Dohle Bodies Platelet Estimate Platelet Morphology Ovalocytes Keratocytes PT INR Sodium Potassium Chloride Carbon Dioxide Anion Gap BUN Creatinine Estimated GFR POC Glucose 176 H 173 H 159 H Random Glucose Calcium Calcium Adj for Albumin Total Bilirubin AST ALT Alkaline Phosphatase Total Creatine Kinase CK-MB (CK-2) CK-MB (CK-2) % Total Protein Albumin Urine Color Urine Clarity Urine pH Ur Specific [place] Urine Protein Urine Glucose (UA) Urine Ketones Urine Occult Blood Urine Nitrate Urine Bilirubin Urine Urobilinogen Ur Leukocyte Esterase Urine RBC Urine WBC Ur Squamous Epith Cells Amorphous Sediment Urine Bacteria Urine Mucus Micro UA Comment Urine Culture Comments 06/04/18 11:15 WBC RBC Hgb Hct MCV MCH MCHC RDW Plt Count MPV Prelim Diff (Auto) WBC Differential Seg Neuts % (Manual) Band Neuts % (Manual) Lymphocytes % (Manual) Monocytes % (Manual) Abs Neuts (Manual) Differential Comment Toxic Granulation Dohle Bodies Platelet Estimate Platelet Morphology Ovalocytes Keratocytes PT INR Sodium Potassium Chloride Carbon Dioxide Anion Gap BUN Creatinine Estimated GFR POC Glucose 182 H Random Glucose Calcium Calcium Adj for Albumin Total Bilirubin AST ALT Alkaline Phosphatase Total Creatine Kinase CK-MB (CK-2) CK-MB (CK-2) % Total Protein Albumin Urine Color Urine Clarity Urine pH Ur Specific [place] Urine Protein Urine Glucose (UA) Urine Ketones Urine Occult Blood Urine Nitrate Urine Bilirubin Urine Urobilinogen Ur Leukocyte Esterase Urine RBC Urine WBC Ur Squamous Epith Cells Amorphous Sediment Urine Bacteria Urine Mucus Micro UA Comment Urine Culture Comments - Imaging Impressions Head CT 06/03/18 00:00 CONCLUSION: 1. Stable appearance of the acute hemorrhage along the right side of the brainstem. . Head CT 06/04/18 06:00 CONCLUSION: Stable blood products in the posterior fossa, as above. No other acute abnormality is identified. . Assessment and Plan - Plan Impression MRSA sepsis on presentation, worrisome for IE - MRSA not a common pathogen UTI Hemorrhage posterior fossa - ?concern if mycotic aneurysm Hx DM, HTN, Obesity Renal insufficiency Recommendation Repeat blood culture to document clearing Continue Vanco Continue Zosyn for now, if nothing else on culture DC When more stable, will need LAURIE Consider doing MRI of the brain CT abdomen and pelvis, will see if his creatinine will improve before ordering Follow cultures Follow temps Monitor progress I will make further recommendation regarding treatment once workup is completed I will follow along with you Thank you for this consultation
[2018-06-04 15:24] LABS: Baso % (Auto) 0.1 % (0.0-2.0); Hematocrit 32.1 % (39.0-51.0); Hemoglobin 10.9 gm/dL (13.0-17.0); Lymph # (Auto) 0.6 th/mm3 (1.0-4.8); Lymph % (Auto) 7.1 % (9.0-44.0); Mean Corpuscular HGB Conc 33.9 % (32.0-36.0); Mean Corpuscular Volume 88.4 fL (80.0-100.0); Mean Platelet Volume 9.3 fL (7.0-11.0); Mono # (Auto) 1.1 th/mm3 (0.0-0.9); Mono % (Auto) 13.7 % (0.0-8.0); Neut # (Auto) 6.6 th/mm3 (1.8-7.7); Neut % (Auto) 79.1 % (16.0-70.0); Platelet Count 88 th/mm3 (150-450); Red Blood Count 3.63 mil/mm3 (4.50-5.90); Red Cell Distribution Width 16.4 % (11.6-17.2); White Blood Count 8.3 th/mm3 (4.0-11.0)
--- NOTE | 2018-06-04 16:27 | P.PNCC ---
Subjective Subjective Remarks/Hospital Course: 06/03: Patient is a 68-year-old male with past medical history significant for type 2 diabetes, hypertension, morbid obesity who presented to the [facility] emergency department with weakness and slurred speech. Symptoms present for 2 days, apparently he was found on the floor of his mobile home. He was noted to have high fever at the [facility] his WBC count was 21.3 UA was positive. His sodium was 134 BUN 50 with a creatinine of 2.33 bicarb was 16 lactic acid was 6.8. CPK more than 3000 at the outside hospital. A CT of the head showed focal hemorrhage into the right quadrigeminal plate cistern. Dr. Hopkins was contacted who accepted the patient and requested admission to critical care. Patient was accepted to [facility] at [place] Dr. Deluca evaluated the patient in the [facility], he is lying in the bed. Slightly tachypneic moderate distress. Patient is oriented to place and person. CT of the head repeated here at [place] showed hemorrhage along the posterior aspect of the brainstem measuring up to 2.8 cm in maximal diameter. Mild mass effect on the brainstem. No hydrocephalus. I have started the patient on Cardene infusion for tight blood pressure control. Zosyn for UTI. 2% saline will be started to keep sodium above 150. Avoid mannitol due to renal failure. Keppra for seizure prophylaxis. I am unable to find coags but platelet count was normal. 06/04: MRSA bacteremia ob blood cultures drawn on admission. Currently on precedex, on room air. Awake, follows commands, speech, unintelligible. Started on IV vanc. ID consulted as concern for septic emboli/ endocarditis as cause for brainstem bleed. Objective Vital Signs / I&O: Vital Signs 06/03/18 16:43 06/03/18 17:00 06/03/18 17:03 Temperature Pulse Rate 116 H 123 H 124 H Respiratory Rate 43 H 50 H 45 H Blood Pressure 163/78 H 160/87 H Pulse Oximetry 100 99 06/03/18 17:39 06/03/18 17:50 06/03/18 18:00 Temperature 98.6 F 98.6 F Pulse Rate 119 H 118 H Respiratory Rate 51 H 41 H Blood Pressure 163/114 H Pulse Oximetry 100 100 06/03/18 18:03 06/03/18 18:50 06/03/18 19:00 Temperature Pulse Rate 117 H 111 H 97 H Respiratory Rate 51 H 37 H 38 H Blood Pressure 160/74 H 171/77 H Pulse Oximetry 100 100 100 06/03/18 19:03 06/03/18 19:12 06/03/18 19:45 Temperature Pulse Rate 96 H 114 H Respiratory Rate 38 H 45 H Blood Pressure 138/66 Pulse Oximetry 100 100 100 06/03/18 20:00 06/03/18 20:03 06/03/18 20:48 Temperature 99.8 F H Pulse Rate 123 H 123 H 103 H Respiratory Rate 46 H 46 H 40 H Blood Pressure 138/66 174/114 H 133/66 Pulse Oximetry 100 100 100 06/03/18 21:00 06/03/18 21:03 06/03/18 22:00 Temperature Pulse Rate 105 H 108 H 96 H Respiratory Rate 41 H 42 H 32 H Blood Pressure 146/71 H 135/64 Pulse Oximetry 100 100 100 06/03/18 22:03 06/03/18 23:00 06/03/18 23:03 Temperature Pulse Rate 101 H 101 H 98 H Respiratory Rate 35 H 35 H 33 H Blood Pressure 135/64 146/67 H Pulse Oximetry 100 100 100 06/04/18 00:00 06/04/18 00:05 06/04/18 00:26 Temperature 97.9 F Pulse Rate 107 H 96 H Respiratory Rate 34 H 32 H Blood Pressure 121/58 L Pulse Oximetry 97 97 97 06/04/18 01:00 06/04/18 02:00 06/04/18 03:00 Temperature Pulse Rate 97 H 96 H 96 H Respiratory Rate 33 H 32 H 33 H Blood Pressure 125/58 L 129/59 L 140/62 Pulse Oximetry 98 97 94 L 06/04/18 04:00 06/04/18 05:00 06/04/18 05:20 Temperature 98.3 F Pulse Rate 94 H 103 H 109 H Respiratory Rate 33 H 36 H 38 H Blood Pressure 135/60 163/77 H Pulse Oximetry 96 98 97 06/04/18 06:00 06/04/18 07:00 06/04/18 08:00 Temperature 101.2 F H Pulse Rate 77 88 90 Respiratory Rate 30 H 32 H 30 H Blood Pressure 119/58 L 139/65 138/63 Pulse Oximetry 99 99 96 06/04/18 09:00 06/04/18 10:00 06/04/18 11:00 Temperature 99.8 F H Pulse Rate 74 72 96 H Respiratory Rate 28 H 29 H 32 H Blood Pressure 114/56 L 130/63 124/60 Pulse Oximetry 98 99 97 06/04/18 12:00 06/04/18 13:00 06/04/18 14:00 Temperature 98.3 F Pulse Rate 96 H 82 72 Respiratory Rate 26 H 30 H 24 Blood Pressure 162/72 H 113/65 114/64 Pulse Oximetry 98 98 96 06/04/18 15:00 Temperature Pulse Rate 87 Respiratory Rate 29 H Blood Pressure 126/66 Pulse Oximetry 97 Intake & Output 06/03/18 06/04/18 06/04/18 18:59 06:59 18:59 Intake Total 1155 / 1155 1255 / 1255 1820 / 1820 Output Total 1600 / 1600 1200 / 1200 Balance -445 / -445 55 / 55 1820 / 1820 Weight 130.4 kg Intake: IV 1155 / 1155 1255 / 1255 1820 / 1820 Precedex Inj 200 MCG In NS Inj 50 / 50 50 / 50 48 ML @ 0.2 MCG/KG/HR 6.65 mls/ hr IV.CONT TITRATE PRN Rx#: [id number] NS Inj 1,000 ML @ 84 mls/hr IV. 1000 / 1000 1000 / 1000 CONT .[id number] JACOB Rx#:[id number] Sodium Chloride 23.4% Inj 188 1000 / 1000 MEQ In NS Inj 1,000 ML @ 42 mls /hr IV.CONT .Q24H JACOB Rx#: [id number] Ofirmev Inj 1,000 mg In 100 ml 100 / 100 @ 400 mls/hr IV.SIG Q8H PRN Rx# :[id number] Zosyn 3.375 GM Premix 50 ML @ 50 / 50 100 / 100 50 / 50 100 mls/hr IV.SIG Q8H JACOB Rx#: [id number] KCl 20 mEq Premix Inj 20 meq In 100 / 100 100 ml @ 50 mls/hr IV.SIG Q2H PRN Rx#:[id number] Vancomycin Inj 2,000 MG In NS 520 / 520 Inj 500 ML @ 250 mls/hr IV.SIG ONCE ONE Rx#:[id number] Keppra Inj 500 MG In NS Inj 100 105 / 105 105 / 105 ML @ 400 mls/hr IV.SIG Q12H JACOB Rx#:[id number] Oral 0 / 0 Output: Urine 1600 / 1600 Urine Amount (Catheter) 1200 / 1200 Indwelling Urethral Catheter 1200 / 1200 Other: Date of Last Bowel Movement 06/02/18 06/02/18 06/02/18 # Bowel Movements 0 Result Diagrams: 06/04/18 14:50 06/04/18 03:07 Imaging: Abdomen/Bladder Ultrasound 06/03/18 00:00 CONCLUSION: 1. Bilateral simple cysts within the kidneys as above. 2. No findings to indicate renal obstruction. 3. Renal cortex appears of adequate thickness. Chest X-Ray 06/03/18 00:00 CONCLUSION: Negative examination. Head CT 06/03/18 00:00 CONCLUSION: 1. Hemorrhage along the posterior aspect of the brainstem as above measuring up to 2.8 cm in maximal diameter. Mild mass effect on the brainstem. No hydrocephalus. Paranasal sinuses are clear. No acute bony abnormality. Head CT 06/03/18 00:00 CONCLUSION: 1. Stable appearance of the acute hemorrhage along the right side of the brainstem. . Chest X-Ray 06/03/18 13:53 CONCLUSION: Negative examination. Head CT 06/04/18 06:00 CONCLUSION: Stable blood products in the posterior fossa, as above. No other acute abnormality is identified. . Objective Remarks: GENERAL: 68-year-old male lying in ICU bed in no acute distress. SKIN: Focused skin assessment warm/dry. HEAD: Atraumatic. Normocephalic. EYES: Pupils equal and round. No scleral icterus. No injection or drainage. ENT: No nasal bleeding or discharge. Oral cavity dry NECK: Trachea midline. No JVD. CARDIOVASCULAR: S1-S2 distant. No murmurs. Hypotensive RESPIRATORY: No accessory muscle use, Air entry diminished at the bases, occ rhonchi, no wheezing. GASTROINTESTINAL: Abdomen soft, non-tender, nondistended. BS present MUSCULOSKELETAL: No obvious deformities. No clubbing. No cyanosis. No edema. NEUROLOGICAL: Awake and alert oriented to person and unintelligible speech. Pupils 3mm bilat equal reactive, Motor grossly within normal limits although there is generalized weakness. Assessment and Plan - Problem List (1) 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 Status: Acute (2) Encephalopathy acute Code(s): G93.40 - Encephalopathy, unspecified Status: Acute (3) Acute kidney failure Code(s): N17.9 - Acute kidney failure, unspecified Status: Acute (4) Severe sepsis Code(s): A41.9 - Sepsis, unspecified organism; R65.20 - Severe sepsis without septic shock Status: Acute (5) Metabolic acidemia Code(s): E87.2 - Acidosis Status: Acute (6) UTI (urinary tract infection) Code(s): N39.0 - Urinary tract infection, site not specified Status: Acute (7) Lactic acidosis Code(s): E87.2 - Acidosis Status: Acute (8) Rhabdomyolysis Code(s): M62.82 - Rhabdomyolysis Status: Acute (9) Obesity Code(s): E66.9 - Obesity, unspecified Status: Chronic (10) Hypertension Code(s): I10 - Essential (primary) hypertension Status: Chronic (11) Diabetes Code(s): E11.9 - Type 2 diabetes mellitus without complications Status: Chronic - Assessment and Plan Plan: NEURO: Brainstem hemorrhage measuring up to 2.8 cm in maximal diameter, mild mass effect Acute encephalopathy -Repeat CT findings as above -Neurosurgery Dr. Hopkins consulted and following -2% saline to keep sodium 150-155 -Close neuro monitoring. MRI/MRA brain -If he develops hydrocephalus will need EVD -Placed on Keppra for seizure prophylaxis - With MRSA bacteremia suspect septic emboli with mycotic aneurism vs hypertensive bleed. RESP: Past smoking -DuoNeb every as needed -Monitor closely for airway protection -At high risk for respiratory decompensation and requiring intubation CV: Lactic acidemia History of hypertension -Lactic acid at the outside hospital was 6.8 -Normal saline IV fluids, transthoracic echo -IV fluid normal saline and 2% saline -Cardene infusion to keep blood pressure less than 140/90 GI: -N.p.o., IV famotidine. May need dobhoff for tube feeds if fails swallow on 06/05 : Acute kidney failure Rhabdomyolysis -Monitor renal function closely. Place Hays catheter. -IV fluid resuscitation and maintenance fluid as above -Check renal ultrasound ID: Severe sepsis/septic shock UTI -Antibiotics with Zosyn renally dosed. IV vancomycin. Blood cultures positive for MRSA (4/4) -ID consulted-Dr. Rodriguez May need LAURIE to eval for endocarditis. Check MRI Brain, CT Abd/pelvis to eval for septic embolis HEME: Leukocytosis secondary to sepsis -Monitor CBC, coags ENDO: Type 2 diabetes -Sliding scale insulin PROPH: -Bilateral lower extremity SCDs. IV famotidine. Chemical DVT prophylaxis is contraindicated LINES: -Utilize peripheral IVs, central line if needed (1) Brain stem hemorrhage Qualifiers: Intracerebral hemorrhage etiology: nontraumatic
[2018-06-04] MEDS ORDERED: Gadobutrol PF 10 MMOL/10 ML Vial (for RAD) IV.SIG ONE (18:53)
--- NOTE | 2018-06-04 19:14 | CT ---
EXAM DATE: 06/04/2018 6:57 PM EST AGE/SEX: 68 years / Male INDICATIONS: Sepsis. CLINICAL DATA: This is the patient's subsequent encounter. Patient reports that signs and symptoms h ave been present for 3 days and indicates a pain score of Nonresponsive. MEDICAL/SURGICAL HISTORY: Diabetes. Hypertension. MRSA, lactic acidosis, brain stem bleed Non e. ORAL CONTRAST: No oral contrast ingested. RADIATION DOSE: 17.02 CTDI (mGy) COMPARISON: [facility] [place]AD[place], 06/03/2018. . TECHNIQUE: Multiple contiguous axial images were obtained through the abdomen and pelvis following b olus infusion of 95 ml Visipaque 320 (iodixanol) nonionic water-soluble contrast as a single exam d ose. No oral contrast ingested. Using automated exposure control and adjustment of the mA and/or kV according to patient size, radiation dose was kept as low as reasonably achievable to obtain optimal diagnostic quality images. DICOM format image data is available electronically for review and compar leon. FINDINGS: This study is degraded by mild motion artifact. Lower Lungs: There is apparent atelectasis in both lung bases. There are minimal pleural fluid collec tions. Liver: The liver has a homogeneous density without space-occupying lesion. There is no dilation of th e biliary tree. The gallbladder appears grossly unremarkable. Spleen: Homogeneous density without enlargement. Pancreas: Unremarkable without mass or calcification. Kidneys: Normal in size and shape. No evidence of a solid mass or hydronephrosis. Bilateral renal cy sts are present. Adrenal Glands: Unremarkable. Aorta: The aorta and proximal iliac vessels are grossly unremarkable without aneurysmal dilation. Bowel/Mesentery: No oral contrast was given limiting the sensitivity of the exam. There is mild maria fernanda on artifact as well. The second and third portions of the duodenum appear slightly prominent and mando stinct with mild surrounding inflammatory change extending into the mesentery. There is no free air o r drainable fluid collection. Diverticuli are present in the sigmoid colon. There is a small amount o f fluid in the pelvis. Abdominal Wall: Intact. Retroperitoneum: No evidence of adenopathy in the retrocrural, para-aortic, or deep pelvic regions. Bladder: Contours are smooth. A Hays catheter is present in the bladder and there is an air-fluid l evel. Reproductive Organs: No abnormal masses or calcifications seen. Inguinal: The inguinal region is unremarkable without evidence of adenopathy. Bony Structures: Osteopenia, degenerative change and mild scoliosis are present. There are degenerat tracie changes in both hips left greater than right. CONCLUSION: 1. The second and third portions of the duodenum appear mildly prominent and indistinct with mild garay rrounding inflammatory change extending into the adjacent mesentery. The findings are concerning for duodenitis. 2. Bilateral renal cysts. 3. Minimal pleural effusions and atelectasis in the lung bases. 4. The gallbladder is unremarkable. Electronically signed by: Bello Wagner MD 06/04/2018 7:12 PM EST
--- NOTE | 2018-06-04 19:19 | MR ---
EXAM DATE: 06/04/2018 6:42 PM EST AGE/SEX: 68 years / Male INDICATIONS: . Brainstem bleed. CLINICAL DATA: This is the patient's initial encounter. Patient reports that signs and symptoms have been present for 1 day and indicates a pain score of Nonresponsive. MEDICAL/SURGICAL HISTORY: Hypertension. Diabetes mellitus type II. None. COMPARISON: [facility] – [place] HEAD [place]/O CONTRAST, 06/04/2018. . TECHNIQUE: Multiplanar, multisequence examination of the brain was performed without and with 10 ml G adavist (gadobutrol) contrast as a single exam dose. FINDINGS: Cerebrum: The ventricles are normal for age. There is bilateral cortical atrophy characteristic for patient's age. No evidence of midline shift, mass lesion, hemorrhage or acute infarction. No extraa xial fluid collections are seen. The pituitary gland and suprasellar cistern are normal in configura tion. White Matter: A few high signal spots are seen throughout the white matter tracts bilaterally consis tent with ischemic demyelinization. Posterior Fossa: There is some focal subacute hemorrhagic blood products adjacent to the posterior ri ght midbrain measuring approximately 1.5 cm in length. This is not significantly changed compared to the recent CT scan of the brain. The fourth ventricle is normal in size and midline in position. Ther e is no mass effect or midline shift. The rest of the midbrain is unremarkable. Diffusion Imaging: No focal areas of restricted diffusion are seen. No evidence of acute infarction . Extracranial: The visualized portions of the orbits and paranasal sinuses are unremarkable. Post Contrast: No mass enhancing lesions are demonstrated. CONCLUSION: 1. There is a focal stable area of subacute hemorrhage adjacent to the posterior right midbrain tabby uring approximately 1.5 cm in length. This is not significantly changed in its overall appearance com pared to the recent CT scan of the brain. No definite new areas of hemorrhage are demonstrated. 2. Stable diffuse bilateral cortical atrophy. Electronically signed by: Jose Manuel Olivarez MD 06/04/2018 7:18 PM EST
--- NOTE | 2018-06-04 19:23 | MR ---
EXAM DATE: 06/04/2018 6:54 PM EST AGE/SEX: 68 years / Male INDICATIONS: . Brainstem bleed. CLINICAL DATA: This is the patient's initial encounter. Patient reports that signs and symptoms have been present for 1 day and indicates a pain score of Nonresponsive. MEDICAL/SURGICAL HISTORY: Hypertension. Diabetes mellitus type II. None. COMPARISON: No prior exams available for comparison. TECHNIQUE: 10 ml Gadavist (gadobutrol) contrast infused MRA (single exam dose) of the extracranial circulation was performed using a neurovascular coil. Postprocessing was performed, including rotati ng sub-volume maximum intensity projections of each carotid artery, rotating full-volume maximum inte nsity projections of both carotid arteries, sagittal and coronal sliding thin-slab reformations of ea ch carotid artery, and left oblique sliding thin-slab reformation through the aortic arch to include the origin of the arch branch vessels. FINDINGS: Aortic Arch : There is a three-vessel origin of the great vessels from the aorta. No evidence of o stial narrowing. Right Carotid : The common carotid artery is intact. The carotid bulb has a normal configuration wi thout ulceration or narrowing. The internal carotid artery lumen is smooth without stenosis. The ex ternal carotid artery is intact. Left Carotid : The common carotid artery is intact. The carotid bulb has a normal configuration wit hout ulceration or narrowing. The internal carotid artery lumen is smooth without stenosis. The ext ernal carotid artery is intact. Vertebrals : The vertebral arteries are patent bilaterally. The left vertebral artery is dominant. CONCLUSION: 1. Unremarkable MRA of the carotids. Percent stenosis is calculated using the diameter of the stenotic region over the diameter of the nor mal distal internal carotid artery Electronically signed by: Jose Manuel Olivarez MD 06/04/2018 7:21 PM EST
--- NOTE | 2018-06-04 19:30 | MR ---
EXAM DATE: 06/04/2018 6:42 PM EST AGE/SEX: 68 years / Male INDICATIONS: Patient with hemorrhage along the right side of the brainstem. History of altered mental status. CLINICAL DATA: This is the patient's initial encounter. Patient reports that signs and symptoms have been present for 1 day and indicates a pain score of Nonresponsive. MEDICAL/SURGICAL HISTORY: Hypertension. Diabetes mellitus type II. None. COMPARISON: [facility] – [place], [place] HEAD W & W/O CONTRAST, 06/04/2018. . TECHNIQUE: 3D [id number] MRA was performed. Source images, multiplanar STS MIP, and 3D volum e MIP reconstructions were reviewed. FINDINGS: There is excellent visualization of the major intracranial arteries out to the second-order branch ve ssels. There is no evidence for aneurysm or evidence for vascular malformation. There is mild beadin g and irregularity involving the left M2 segment There is visualization of the blood products along t he right side of the brainstem. CONCLUSION: 1. Atherosclerotic changes involving the left M2 segment. 2. No aneurysm or vascular abnormality identified. 3. Visualization of the known blood products along the right side of the brainstem. Electronically signed by: Bello Wagner MD 06/04/2018 7:29 PM EST
[2018-06-04 23:44] LABS: Alanine Aminotransferase 55 U/L (12-78); Albumin 2.1 g/dL (3.4-5.0); Anion Gap 7 meq/L (5-15); Aspartate Aminotransferase 113 U/L (15-37); Blood Urea Nitrogen 35 mg/dL (7-18); Calcium 7.7 mg/dL (8.5-10.1); Carbon Dioxide 21.2 meq/L (21.0-32.0); Chloride 127 meq/L (98-107); Glomerular Filtration Rate 54 mL/min (>89); Glucose,Random 159 mg/dL (74-106); Potassium 3.9 meq/L (3.5-5.1); Sodium 155 meq/L (136-145)
[2018-06-04 23:58] LABS: Alkaline Phosphatase 46 U/L (45-117); Creatine Kinase 1666 U/L (39-308); Total Protein 6.1 g/dL (6.4-8.2)
[2018-06-05] MEDS: Insulin NovoLIN Regular Correctional Sugar Inj SQ SCH ×5 (00:36→20:00)
[2018-06-05 01:43] LABS: CKMB Percent 0.1 % (0.0-4.0); Creatine Kinase MB 1.7 ng/mL (0.5-3.6)
[2018-06-05] MEDS: Metoprolol Inj 5 MG/5 ML Vial IV.PUSH SCH ×4 (03:59→20:01)
[2018-06-05] MEDS: Chlorhexidine Gluconate 2% 1 Pack (2 Cloths) TOPICAL SCH (04:08)
[2018-06-05] MEDS: Piperacil/Tazo 3.375 GM Premix 50 ML IV.SIG SCH ×2 (04:41→12:52)
[2018-06-05 04:43] LABS: Baso % (Auto) 0.1 % (0.0-2.0); Eos % (Auto) 0.1 % (0.0-4.0); Hematocrit 35.9 % (39.0-51.0); Hemoglobin 11.9 gm/dL (13.0-17.0); Lymph # (Auto) 0.7 th/mm3 (1.0-4.8); Lymph % (Auto) 6.7 % (9.0-44.0); Mean Corpuscular HGB Conc 33.2 % (32.0-36.0); Mean Corpuscular Hemoglobin 29.9 pg (27.0-34.0); Mean Corpuscular Volume 90.2 fL (80.0-100.0); Mean Platelet Volume 9.4 fL (7.0-11.0); Mono # (Auto) 1.4 th/mm3 (0.0-0.9); Mono % (Auto) 13.4 % (0.0-8.0); Neut % (Auto) 79.7 % (16.0-70.0); Platelet Count 98 th/mm3 (150-450); Red Blood Count 3.98 mil/mm3 (4.50-5.90); Red Cell Distribution Width 17.1 % (11.6-17.2); White Blood Count 10.1 th/mm3 (4.0-11.0)
[2018-06-05] MEDS: Dexmedetomidine Inj 200 MCG in Sodium Chlor 0.9% Inj 48 ML IV.CONT PRN (04:55)
[2018-06-05 05:12] LABS: Lymphocytes 7 % (9-44); Monocytes 13 % (0-8); Ovalocytes 1+; Platelet Morphology Normal (Normal)
[2018-06-05] MEDS: Vancomycin Inj 2,000 MG in Sodium Chlor 0.9% Inj 500 ML IV.SIG SCH ×2 (06:24→23:44)
[2018-06-05] MEDS: Sod Chloride 0.9% Inj 1,000 ML IV.CONT SCH ×3 (06:24→15:09)
[2018-06-05] MEDS: Famotidine PF Inj 20 MG/2 ML Vial IV.PUSH SCH ×2 (08:28→20:01)
[2018-06-05] MEDS: Senna/Docusate Sodium 8.6/50 MG Tablet PO SCH ×2 (08:29→23:44)
[2018-06-05] MEDS: amLODIPine 10 MG Tablet PO SCH (08:29)
[2018-06-05] MEDS: Sodium Chloride 23.4% Inj 188 MEQ in Sod Chloride 0.9% Inj 1,000 ML IV.CONT SCH ×2 (08:29→09:00)
--- NOTE | 2018-06-05 11:34 | P.PNCC ---
Subjective Subjective Remarks/Hospital Course: 06/03: Patient is a 68-year-old male with past medical history significant for type 2 diabetes, hypertension, morbid obesity who presented to the [facility] emergency department with weakness and slurred speech. Symptoms present for 2 days, apparently he was found on the floor of his mobile home. He was noted to have high fever at the [facility] his WBC count was 21.3 UA was positive. His sodium was 134 BUN 50 with a creatinine of 2.33 bicarb was 16 lactic acid was 6.8. CPK more than 3000 at the outside hospital. A CT of the head showed focal hemorrhage into the right quadrigeminal plate cistern. Dr. Hopkins was contacted who accepted the patient and requested admission to critical care. Patient was accepted to [facility] at [place] Dr. Deluca evaluated the patient in the [facility], he is lying in the bed. Slightly tachypneic moderate distress. Patient is oriented to place and person. CT of the head repeated here at [place] showed hemorrhage along the posterior aspect of the brainstem measuring up to 2.8 cm in maximal diameter. Mild mass effect on the brainstem. No hydrocephalus. I have started the patient on Cardene infusion for tight blood pressure control. Zosyn for UTI. 2% saline will be started to keep sodium above 150. Avoid mannitol due to renal failure. Keppra for seizure prophylaxis. I am unable to find coags but platelet count was normal. 06/04: MRSA bacteremia ob blood cultures drawn on admission. Currently on precedex, on room air. Awake, follows commands, speech, unintelligible. Started on IV vanc. ID consulted as concern for septic emboli/ endocarditis as cause for brainstem bleed. 06/05: 48 hours following a mid brain spontaneous hemorrhage complicated by numerous MRSA blood cultures. Blood pressure acceptably well controlled. Fever pattern persists. Patient tolerating extubation and protecting airway adequately. Taper completely off Precedex. Serum osmolality acceptably concentrated. Objective Vital Signs / I&O: Vital Signs 06/04/18 12:00 06/04/18 13:00 06/04/18 14:00 Temperature 98.3 F Pulse Rate 96 H 82 72 Respiratory Rate 26 H 30 H 24 Blood Pressure 162/72 H 113/65 114/64 Pulse Oximetry 98 98 96 06/04/18 15:00 06/04/18 16:00 06/04/18 17:00 Temperature 98.2 F Pulse Rate 87 71 91 H Respiratory Rate 29 H 28 H 30 H Blood Pressure 126/66 123/63 Pulse Oximetry 97 96 98 06/04/18 18:00 06/04/18 19:00 06/04/18 19:03 Temperature Pulse Rate 98 H 99 H 93 H Respiratory Rate 30 H 28 H 28 H Blood Pressure 141/79 H 106/51 L Pulse Oximetry 98 91 L 06/04/18 20:00 06/04/18 20:39 06/04/18 21:00 Temperature Pulse Rate 91 H 97 H 99 H Respiratory Rate 26 H 31 H 28 H Blood Pressure 107/53 L 105/52 L Pulse Oximetry 100 100 100 06/04/18 22:00 06/04/18 23:00 06/04/18 23:37 Temperature Pulse Rate 97 H 88 Respiratory Rate 29 H 27 H Blood Pressure 104/52 L 95/47 L Pulse Oximetry 100 100 100 06/05/18 00:00 06/05/18 01:00 06/05/18 02:00 Temperature 99 F Pulse Rate 95 H 90 86 Respiratory Rate 29 H 26 H 29 H Blood Pressure 101/51 L 100/51 L 109/55 L Pulse Oximetry 100 99 100 06/05/18 03:00 06/05/18 03:12 06/05/18 04:00 Temperature 101.2 F H Pulse Rate 95 H 90 Respiratory Rate 39 H 35 H Blood Pressure 137/66 156/67 H Pulse Oximetry 99 100 100 06/05/18 05:00 06/05/18 06:00 06/05/18 07:17 Temperature 100.2 F H Pulse Rate 93 H 93 H Respiratory Rate 31 H 27 H Blood Pressure 139/64 139/64 Pulse Oximetry 99 99 95 06/05/18 08:00 Temperature Pulse Rate Respiratory Rate Blood Pressure Pulse Oximetry 99 Intake & Output 06/04/18 06/05/18 06/05/18 18:59 06:59 18:59 Intake Total 2975 / 2975 503 / 503 Output Total 1400 / 1400 1400 / 1400 Balance 1575 / 1575 -897 / -897 Weight 129.2 kg Intake: IV 2975 / 2975 503 / 503 Precedex Inj 200 MCG In NS Inj 100 / 100 98 / 98 48 ML @ 0.2 MCG/KG/HR 6.65 mls/ hr IV.CONT TITRATE PRN Rx#: [id number] NS Inj 1,000 ML @ 84 mls/hr IV. 1999 CONT .[id number] [facility] Rx#:[id number] Ofirmev Inj 1,000 mg In 100 ml 100 / 100 100 / 100 @ 400 mls/hr IV.SIG Q8H PRN Rx# :[id number] Zosyn 3.375 GM Premix 50 ML @ 50 / 50 100 / 100 100 mls/hr IV.SIG Q8H [facility] Rx#: [id number] KCl 20 mEq Premix Inj 20 meq In 100 / 100 100 / 100 100 ml @ 50 mls/hr IV.SIG Q2H PRN Rx#:[id number] Vancomycin Inj 2,000 MG In NS 520 / 520 Inj 500 ML @ 250 mls/hr IV.SIG ONCE ONE Rx#:[id number] Keppra Inj 500 MG In NS Inj 100 105 / 105 105 / 105 ML @ 400 mls/hr IV.SIG Q12H [facility] Rx#:[id number] Oral 0 / 0 Output: Urine Amount (Catheter) 1400 / 1400 1400 / 1400 Indwelling Urethral Catheter 1400 / 1400 1400 / 1400 Other: Date of Last Bowel Movement 06/02/18 06/02/18 06/02/18 # Bowel Movements 0 Result Diagrams: 06/05/18 04:07 06/05/18 04:07 Objective Remarks: GENERAL: 68-year-old male lying in ICU bed in no acute distress. SKIN: Focused skin assessment warm/dry. HEAD: Atraumatic. Normocephalic. EYES: Pupils equal and round. No scleral icterus. No injection or drainage. ENT: No nasal bleeding or discharge. Oral cavity dry. Trachea midline. No JVD. CARDIOVASCULAR: Normal S1-S2. No murmurs. Regular rate and rhythm. No JVD. RESPIRATORY: Mildly tachypneic with air entry diminished at the bases, scattered rhonchi, no adventitious sounds GASTROINTESTINAL: Abdomen soft, non-tender, nondistended. BS present. No guarding. MUSCULOSKELETAL: No obvious deformities. No clubbing. No cyanosis. No edema. Warm, well perfused. NEUROLOGICAL: Groans to stimulation, unintelligible speech. Pupils equal, reactive, Motor function grossly apparent all 4 limbs although there is generalized weakness. Assessment and Plan - Problem List (1) 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 Status: Acute (2) Encephalopathy acute Code(s): G93.40 - Encephalopathy, unspecified Status: Acute (3) Acute kidney failure Code(s): N17.9 - Acute kidney failure, unspecified Status: Acute (4) Severe sepsis Code(s): A41.9 - Sepsis, unspecified organism; R65.20 - Severe sepsis without septic shock Status: Acute (5) Metabolic acidemia Code(s): E87.2 - Acidosis Status: Acute (6) UTI (urinary tract infection) Code(s): N39.0 - Urinary tract infection, site not specified Status: Acute (7) Lactic acidosis Code(s): E87.2 - Acidosis Status: Acute (8) Rhabdomyolysis Code(s): M62.82 - Rhabdomyolysis Status: Acute (9) Obesity Code(s): E66.9 - Obesity, unspecified Status: Chronic (10) Hypertension Code(s): I10 - Essential (primary) hypertension Status: Chronic (11) Diabetes Code(s): E11.9 - Type 2 diabetes mellitus without complications Status: Chronic - Assessment and Plan Plan: NEURO: Brainstem hemorrhage measuring up to 2.8 cm in maximal diameter, mild mass effect Acute encephalopathy -Repeat CT findings as above -Neurosurgery Dr. Hopkins consulted and following -2% saline to keep sodium 150-155 -Close neuro monitoring. MRI/MRA brain -If he develops hydrocephalus will need EVD -Placed on Keppra for seizure prophylaxis -With MRSA bacteremia suspect septic emboli with mycotic aneurism vs hypertensive bleed. -Less agitated today RESP: Past smoking -DuoNeb every as needed -Monitor closely for airway protection -At high risk for respiratory decompensation and requiring intubation -Mildly tachypneic CV: Lactic acidemia History of hypertension -Lactic acid at the outside hospital was 6.8 -Normal saline IV fluids, transthoracic echo -IV fluid normal saline and 2% saline -Cardene infusion to keep blood pressure less than 140/90 -May need oral scheduled medication for blood pressure control GI: -N.p.o., IV famotidine. May need nasogastric tube for medications and feeds if fails swallow on 06/05 : Acute kidney failure Rhabdomyolysis -Monitor renal function closely. Place [place] catheter. -IV fluid resuscitation and maintenance fluid as above -Check renal ultrasound ID: Severe sepsis/septic shock UTI -Antibiotics with Zosyn renally dosed. IV vancomycin. Blood cultures positive for MRSA (/) -ID consulted-Dr. Rodriguez May need LAURIE to eval for endocarditis. Check MRI Brain, CT Abd/pelvis to eval for septic embolis HEME: Leukocytosis secondary to sepsis -Monitor CBC, coags ENDO: Type 2 diabetes -Sliding scale insulin -Add basal long-acting insulin PROPH: -Bilateral lower extremity SCDs. IV famotidine. Chemical DVT prophylaxis is contraindicated LINES: -Utilize peripheral IVs, central line if needed Overall impression: Blood pressure control remains problematic. Agitation appears better controlled. (1) Brain stem hemorrhage Qualifiers: Intracerebral hemorrhage etiology: nontraumatic
--- NOTE | 2018-06-05 16:39 | XR ---
EXAM DATE: 06/05/2018 4:02 PM EST AGE/SEX: 68 years / Male INDICATIONS: Post NG tube placement. CLINICAL DATA: This is the patient's subsequent encounter. Patient reports that signs and symptoms h ave been present for 4 - 6 days and indicates a pain score of Nonresponsive. MEDICAL/SURGICAL HISTORY: Hypertension. Diabetes mellitus type II. Smoker. None. COMPARISON: [facility] [place] CT ABDOMEN & PELVIS W CONTRAST, 06/04/2018. . FINDINGS: No enteric catheters are demonstrated in the visualized portions of the abdomen and lung bases. No di lated loops of bowel in the visualized portions of the abdomen. Minimal bibasal airspace disease. CONCLUSION: 1. No enteric catheters are demonstrated. Electronically signed by: Stanislaw Melchor MD 06/05/2018 4:38 PM EST
--- NOTE | 2018-06-05 17:38 | P.PNID ---
Subjective Remarks: ID X cover for Dr Rodriguez chart was reviewd 68 yo M with focal hemorrhage in the posterior fossa and MRSA bacteremia. On presentation WBC up to 21,000, urinalysis with pyuria, creatinine 2.33, and lactic acid was elevated. CT of the head showed Patient was transferred to [facility] for neurosurgical evaluation. Patient since admission has had elevated temperature. His blood cultures done on admission are now reported as growing gram-positive cocci, MRSA. His urine culture is also growing MRSA. On evaluation in the intensive care unit, he was awake, and interactive. Echo is showing calcification in the aortic valve. No vegetations seen. Today he is obtunded and unresponsive More + BC (3/3 sets) febrile + bandemia of 19% Antibiotics: vancop zosyn Allergies/Adverse Reactions: Allergies No Known Allergies Allergy (Verified 06/03/18 01:32) Objective Vital Signs 06/04/18 18:00 06/04/18 19:00 06/04/18 19:03 Temperature Pulse Rate 98 H 99 H 93 H Respiratory Rate 30 H 28 H 28 H Blood Pressure 141/79 H 106/51 L Pulse Oximetry 98 91 L 06/04/18 20:00 06/04/18 20:39 06/04/18 21:00 Temperature Pulse Rate 91 H 97 H 99 H Respiratory Rate 26 H 31 H 28 H Blood Pressure 107/53 L 105/52 L Pulse Oximetry 100 100 100 06/04/18 22:00 06/04/18 23:00 06/04/18 23:37 Temperature Pulse Rate 97 H 88 Respiratory Rate 29 H 27 H Blood Pressure 104/52 L 95/47 L Pulse Oximetry 100 100 100 06/05/18 00:00 06/05/18 01:00 06/05/18 02:00 Temperature 99 F Pulse Rate 95 H 90 86 Respiratory Rate 29 H 26 H 29 H Blood Pressure 101/51 L 100/51 L 109/55 L Pulse Oximetry 100 99 100 06/05/18 03:00 06/05/18 03:12 06/05/18 04:00 Temperature 101.2 F H Pulse Rate 95 H 90 Respiratory Rate 39 H 35 H Blood Pressure 137/66 156/67 H Pulse Oximetry 99 100 100 06/05/18 05:00 06/05/18 06:00 06/05/18 07:00 Temperature 100.2 F H Pulse Rate 93 H 93 H 94 H Respiratory Rate 31 H 27 H 29 H Blood Pressure 139/64 139/64 151/70 H Pulse Oximetry 99 99 99 06/05/18 07:17 06/05/18 08:00 06/05/18 09:00 Temperature 97.6 F Pulse Rate 93 H 80 Respiratory Rate 27 H 27 H Blood Pressure 151/69 H 146/67 H Pulse Oximetry 95 99 99 06/05/18 10:00 06/05/18 11:00 06/05/18 12:00 Temperature 97.6 F Pulse Rate 90 86 89 Respiratory Rate 27 H 26 H 26 H Blood Pressure 141/63 H 156/69 H 169/75 H Pulse Oximetry 99 98 100 06/05/18 13:00 06/05/18 14:00 06/05/18 15:00 Temperature Pulse Rate 93 H 100 H 98 H Respiratory Rate 24 28 H 27 H Blood Pressure 161/69 H 164/73 H 144/65 H Pulse Oximetry 100 100 98 06/05/18 16:00 Temperature 100.7 F H Pulse Rate 93 H Respiratory Rate 29 H Blood Pressure 156/68 H Pulse Oximetry 97 Intake & Output 06/04/18 06/05/18 06/05/18 18:59 06:59 18:59 Intake Total 2975 / 2975 1503 / 1503 1047 / 1047 Output Total 1400 / 1400 1400 / 1400 Balance 1575 / 1575 103 / 103 1047 / 1047 Weight 129.2 kg Intake: IV 2975 / 2975 1503 / 1503 1047 / 1047 Precedex Inj 200 MCG In NS Inj 100 / 100 98 / 98 48 ML @ 0.2 MCG/KG/HR 6.65 mls/ hr IV.CONT TITRATE PRN Rx#: [id number] NS Inj 1,000 ML @ 84 mls/hr IV. 1999 / 1999 1000 / 1000 CONT .[id number] [facility] Rx#:[id number] Sodium Chloride 23.4% Inj 188 1047 / 1047 MEQ In NS Inj 1,000 ML @ 20 mls /hr IV.CONT .Q24H [facility] Rx#: [id number] Ofirmev Inj 1,000 mg In 100 ml 100 / 100 100 / 100 @ 400 mls/hr IV.SIG Q8H PRN Rx# :[id number] Zosyn 3.375 GM Premix 50 ML @ 50 / 50 100 / 100 100 mls/hr IV.SIG Q8H [facility] Rx#: [id number] KCl 20 mEq Premix Inj 20 meq In 100 / 100 100 / 100 100 ml @ 50 mls/hr IV.SIG Q2H PRN Rx#:[id number] Vancomycin Inj 2,000 MG In NS 520 / 520 Inj 500 ML @ 250 mls/hr IV.SIG ONCE ONE Rx#:[id number] Keppra Inj 500 MG In NS Inj 100 105 / 105 105 / 105 ML @ 400 mls/hr IV.SIG Q12H [facility] Rx#:[id number] Oral 0 / 0 Output: Urine Amount (Catheter) 1400 / 1400 1400 / 1400 Indwelling Urethral Catheter 1400 / 1400 1400 / 1400 Other: Date of Last Bowel Movement 06/02/18 06/02/18 06/02/18 # Bowel Movements 0 06/03/18 05:20 Catheterized Urine Urine Culture - Final S. aureus MRSA 06/04/18 16:45 Blood - Peripheral Aerobic Blood Culture - Preliminary gram positive cocci 06/04/18 16:45 Blood - Peripheral Anaerobic Blood Culture - Preliminary No growth in 1 day 06/04/18 16:45 Blood - Peripheral Aerobic Blood Culture - Preliminary gram positive cocci 06/04/18 16:45 Blood - Peripheral Anaerobic Blood Culture - Preliminary No growth in 1 day 06/03/18 05:20 Blood - Peripheral Aerobic Blood Culture - Preliminary S. aureus MRSA 06/03/18 05:20 Blood - Peripheral Anaerobic Blood Culture - Preliminary S. aureus MRSA 06/03/18 07:27 Blood - Peripheral Aerobic Blood Culture - Preliminary S. aureus MRSA 06/03/18 07:27 Blood - Peripheral Anaerobic Blood Culture - Preliminary S. aureus MRSA 06/05/18 04:07 Blood - Peripheral Aerobic Blood Culture - Pending 06/05/18 04:07 Blood - Peripheral Anaerobic Blood Culture - Pending Lab - Hematology Results 06/04/18 06/04/18 06/05/18 03:07 14:50 04:07 WBC 8.2 8.3 10.1 RBC 3.78 L 3.63 L 3.98 L Hgb 11.3 L 10.9 L 11.9 L Hct 33.7 L 32.1 L 35.9 L MCV 89.2 88.4 90.2 MCH 29.9 30.0 29.9 MCHC 33.5 33.9 33.2 RDW 16.0 16.4 17.1 Plt Count 91 L 88 L 98 L MPV 9.3 9.3 9.4 Prelim Diff (Auto) Manual diff required Slide review pending Slide review pending Neut % (Auto) 79.1 H 79.7 H Lymph % (Auto) 7.1 L 6.7 L Jones % (Auto) 13.7 H 13.4 H Eos % (Auto) 0.0 0.1 Baso % (Auto) 0.1 0.1 Neut # (Auto) 6.6 8.0 H Lymph # (Auto) 0.6 L 0.7 L Jones # (Auto) 1.1 H 1.4 H Eos # (Auto) 0.0 0.0 Baso # (Auto) 0.0 0.0 WBC Differential Manual diff final . Manual diff final Diff Scan Auto diff confirmed Seg Neuts % (Manual) 81 H 61 Band Neuts % (Manual) 3 19 H Lymphocytes % (Manual) 7 L 7 L Monocytes % (Manual) 9 H 13 H Abs Neuts (Manual) 6.9 8.1 H Differential Comment . . . Toxic Granulation 1+ H Dohle Bodies Present H Platelet Estimate Low L Low L Platelet Morphology Normal Normal Ovalocytes 1+ H 1+ H Keratocytes Occ H Lab - Chemistry Results 06/03/18 06/03/18 06/03/18 17:19 20:39 22:29 Sodium 150 H Potassium Chloride Carbon Dioxide Anion Gap BUN Creatinine Estimated GFR POC Glucose 245 H 194 H Random Glucose Calcium Calcium Adj for Albumin Total Bilirubin AST ALT Alkaline Phosphatase Total Creatine Kinase CK-MB (CK-2) CK-MB (CK-2) % Total Protein Albumin 06/03/18 06/04/18 06/04/18 23:44 03:07 03:34 Sodium 149 H Potassium 3.5 Chloride 120 H D Carbon Dioxide 20.5 L Anion Gap 9 BUN 40 H Creatinine 1.57 H Estimated GFR 44 L POC Glucose 229 H 176 H Random Glucose 191 H Calcium 7.2 L* Calcium Adj for Albumin 7.7 L Total Bilirubin 1.0 AST 137 H ALT 49 Alkaline Phosphatase 40 L Total Creatine Kinase 3523 H CK-MB (CK-2) 3.2 CK-MB (CK-2) % 0.1 Total Protein 6.1 L Albumin 2.2 L 06/04/18 06/04/18 06/04/18 07:24 11:06 11:15 Sodium Potassium Chloride Carbon Dioxide Anion Gap BUN Creatinine Estimated GFR POC Glucose 173 H 159 H 182 H Random Glucose Calcium Calcium Adj for Albumin Total Bilirubin AST ALT Alkaline Phosphatase Total Creatine Kinase CK-MB (CK-2) CK-MB (CK-2) % Total Protein Albumin 06/04/18 06/04/18 06/04/18 15:34 20:41 22:36 Sodium 155 H Potassium 3.9 Chloride 127 H Carbon Dioxide 21.2 Anion Gap 7 BUN 35 H Creatinine 1.31 H Estimated GFR 54 L POC Glucose 145 H 163 H Random Glucose 159 H Calcium 7.7 L Calcium Adj for Albumin Total Bilirubin 1.0 AST 113 H ALT 55 Alkaline Phosphatase 46 Total Creatine Kinase 1666 H CK-MB (CK-2) 1.7 CK-MB (CK-2) % 0.1 Total Protein 6.1 L Albumin 2.1 L 06/05/18 06/05/18 06/05/18 04:07 05:57 08:38 Sodium Potassium Chloride Carbon Dioxide Anion Gap BUN Creatinine 1.43 H Estimated GFR 49 L POC Glucose 159 H 136 H Random Glucose Calcium Calcium Adj for Albumin Total Bilirubin AST ALT Alkaline Phosphatase Total Creatine Kinase CK-MB (CK-2) CK-MB (CK-2) % Total Protein Albumin 06/05/18 06/05/18 06/05/18 15:17 15:18 16:48 Sodium Potassium Chloride Carbon Dioxide Anion Gap BUN Creatinine Estimated GFR POC Glucose 161 H 192 H 148 H Random Glucose Calcium Calcium Adj for Albumin Total Bilirubin AST ALT Alkaline Phosphatase Total Creatine Kinase CK-MB (CK-2) CK-MB (CK-2) % Total Protein Albumin Imaging: ITS Impressions Abdomen/Bladder Ultrasound 06/03/18 00:00 CONCLUSION: 1. Bilateral simple cysts within the kidneys as above. 2. No findings to indicate renal obstruction. 3. Renal cortex appears of adequate thickness. Chest X-Ray 06/03/18 13:53 CONCLUSION: Negative examination. Abdomen/Pelvis CT 06/04/18 00:00 CONCLUSION: 1. The second and third portions of the duodenum appear mildly prominent and indistinct with mild surrounding inflammatory change extending into the adjacent mesentery. The findings are concerning for duodenitis. 2. Bilateral renal cysts. 3. Minimal pleural effusions and atelectasis in the lung bases. 4. The gallbladder is unremarkable. Head MRI 06/04/18 00:00 CONCLUSION: 1. There is a focal stable area of subacute hemorrhage adjacent to the posterior right midbrain measuring approximately 1.5 cm in length. This is not significantly changed in its overall appearance compared to the recent CT scan of the brain. No definite new areas of hemorrhage are demonstrated. 2. Stable diffuse bilateral cortical atrophy. Head MRA 06/04/18 00:00 CONCLUSION: 1. Atherosclerotic changes involving the left M2 segment. 2. No aneurysm or vascular abnormality identified. 3. Visualization of the known blood products along the right side of the brainstem. Neck MRA 06/04/18 00:00 CONCLUSION: 1. Unremarkable MRA of the carotids. Percent stenosis is calculated using the diameter of the stenotic region over the diameter of the normal distal internal carotid artery Head CT 06/04/18 06:00 CONCLUSION: Stable blood products in the posterior fossa, as above. No other acute abnormality is identified. . Abdomen X-Ray 06/05/18 00:00 CONCLUSION: 1. No enteric catheters are demonstrated. Physical Exam: GENERAL: Obtunded, In resp distress morbidly obese SKIN: Warm and dry. NO rash below L knee a fluctuant erythematous nodule HEAD: Atraumatic. Normocephalic. EYES: Pupils equal and round. No scleral icterus. No injection or drainage. ENT: No nasal bleeding or discharge. Mucous membranes pink and moist. NECK: Trachea midline. No JVD. CARDIOVASCULAR: Regular rate and rhythm. RESPIRATORY: No accessory muscle use. Clear to auscultation. Breath sounds equal bilaterally. GASTROINTESTINAL: Abdomen soft, non-tender, nondistended. Hepatic and splenic margins not palpable. MUSCULOSKELETAL: Extremities without clubbing, cyanosis, or edema. No obvious deformities. NEUROLOGICAL: Obtunded and unrepossive PSYCHIATRIC: unable to assess Assessment and Plan - Plan Impression MRSA sepsis on presentation, worrisome for IE - MRSA not a common pathogen UTI Hemorrhage posterior fossa - ?concern if mycotic aneurysm: MRA negative for mycotic aneurism Hx DM, HTN, Obesity Renal insufficiency Recommendation Repeat blood culture to document clearing Continue Vanco: push levels to 20 dc Zosyn MR of L knee when stable When more stable, will need LAURIE Consider doing MRI of the brain CT abdomen and pelvis, will see if his creatinine will improve before ordering
[2018-06-05] MEDS: Mupirocin 2% Nasal Oint Topical Syringe EACH NARE SCH (20:08)
--- NOTE | 2018-06-05 23:30 | XR ---
EXAM DATE: 06/05/2018 11:25 PM EST AGE/SEX: 68 years / Male INDICATIONS: Dobbhoff placement. CLINICAL DATA: This is the patient's subsequent encounter. Patient reports that signs and symptoms h ave been present for 4 - 6 days and indicates a pain score of Nonresponsive. MEDICAL/SURGICAL HISTORY: Hypertension. Diabetes mellitus type II. Smoker. None. [place] [facility] [place]. . FINDINGS: A single portable view of the upper abdomen demonstrates mild motion artifact with feeding tube dista l tip in the gastric body. No other abnormality or interval change is identified. CONCLUSION: Feeding tube distal tip is in the gastric body. Electronically signed by: Yosi Argueta MD 06/05/2018 11:29 PM EST
[2018-06-05] MEDS: Labetalol HCl Inj 100 MG/20 ML Vial IV.PUSH PRN (23:43)
[2018-06-06] MEDS: Insulin NovoLIN Regular Correctional Sugar Inj SQ SCH ×7 (00:25→20:10)
[2018-06-06] MEDS: Dexmedetomidine Inj 200 MCG in Sodium Chlor 0.9% Inj 48 ML IV.CONT PRN (01:57)
[2018-06-06] MEDS ORDERED: Chlorhexidine Gluconate 2% 1 Pack (2 Cloths) TOPICAL PRN (04:00)
[2018-06-06] MEDS ORDERED: Chlorhexidine Gluconate 2% 1 Pack (2 Cloths) TOPICAL SCH (04:00)
[2018-06-06] MEDS: Metoprolol Inj 5 MG/5 ML Vial IV.PUSH SCH ×2 (04:15→09:41)
[2018-06-06] MEDS: Sod Chloride 0.9% Inj 1,000 ML IV.CONT SCH ×2 (04:17→14:20)
[2018-06-06] MEDS: Chlorhexidine Gluconate 2% 1 Pack (2 Cloths) TOPICAL SCH (04:18)
[2018-06-06 05:45] LABS: Albumin 1.8 g/dL (3.4-5.0); Calcium 7.4 mg/dL (8.5-10.1); Carbon Dioxide 20.3 meq/L (21.0-32.0); Potassium 3.8 meq/L (3.5-5.1); Total Protein 6.1 g/dL (6.4-8.2)
[2018-06-06] MEDS: Sodium Chloride 23.4% Inj 188 MEQ in Sod Chloride 0.9% Inj 1,000 ML IV.CONT SCH (07:08)
[2018-06-06] MEDS: Labetalol HCl Inj 100 MG/20 ML Vial IV.PUSH PRN ×2 (08:30→12:05)
[2018-06-06] MEDS: Famotidine PF Inj 20 MG/2 ML Vial IV.PUSH SCH ×2 (09:41→20:09)
[2018-06-06] MEDS: amLODIPine 10 MG Tablet PO SCH (09:41)
[2018-06-06] MEDS: Mupirocin 2% Nasal Oint Topical Syringe EACH NARE SCH ×2 (09:41→20:10)
[2018-06-06] MEDS: Senna/Docusate Sodium 8.6/50 MG Tablet PO SCH ×2 (09:41→20:09)
--- NOTE | 2018-06-06 11:50 | P.PNNS ---
Subjective Interval history: failed swallow study got a DHT, but would like to leave, quite coherent, complains of headache today Physical Exam Vital signs: Vital Signs 06/05/18 12:00 06/05/18 13:00 06/05/18 14:00 Temperature 97.6 F Pulse Rate 89 93 H 100 H Respiratory Rate 26 H 24 28 H Blood Pressure 169/75 H 161/69 H 164/73 H Pulse Oximetry 100 100 100 06/05/18 15:00 06/05/18 16:00 06/05/18 17:00 Temperature 100.7 F H Pulse Rate 98 H 93 H 97 H Respiratory Rate 27 H 29 H 29 H Blood Pressure 144/65 H 156/68 H 168/75 H Pulse Oximetry 98 97 98 06/05/18 18:00 06/05/18 19:00 06/05/18 19:30 Temperature Pulse Rate 101 H 114 H 102 H Respiratory Rate 29 H 35 H 27 H Blood Pressure 168/70 H 169/78 H 169/73 H Pulse Oximetry 97 98 97 06/05/18 20:00 06/05/18 20:09 06/05/18 21:00 Temperature 100.2 F H Pulse Rate 103 H 84 96 H Respiratory Rate 27 H 27 H 27 H Blood Pressure 172/76 H 154/67 H 168/72 H Pulse Oximetry 97 97 97 06/05/18 22:00 06/05/18 22:25 06/05/18 23:27 Temperature Pulse Rate 102 H 109 H Respiratory Rate 30 H 33 H Blood Pressure 173/77 H 152/72 H Pulse Oximetry 97 99 98 06/05/18 23:46 06/06/18 00:00 06/06/18 00:12 Temperature 102.5 F H Pulse Rate 100 H 94 H Respiratory Rate 26 H 28 H Blood Pressure 152/72 H 154/71 H Pulse Oximetry 97 96 06/06/18 00:30 06/06/18 01:00 06/06/18 01:30 Temperature 100 F H Pulse Rate 78 88 86 Respiratory Rate 29 H 29 H 29 H Blood Pressure 140/65 148/66 H 149/68 H Pulse Oximetry 95 96 96 06/06/18 02:00 06/06/18 02:30 06/06/18 03:00 Temperature Pulse Rate 85 89 90 Respiratory Rate 28 H 29 H 30 H Blood Pressure 150/69 H 158/71 H 145/65 H Pulse Oximetry 96 96 96 06/06/18 03:30 06/06/18 04:00 06/06/18 04:30 Temperature 99.7 F H Pulse Rate 85 89 85 Respiratory Rate 27 H 27 H 29 H Blood Pressure 145/65 H 155/70 H 132/60 Pulse Oximetry 96 96 97 06/06/18 05:00 06/06/18 05:30 06/06/18 06:00 Temperature Pulse Rate 86 89 Respiratory Rate 35 H 28 H Blood Pressure 152/67 H 151/67 H 153/69 H Pulse Oximetry 96 96 06/06/18 07:00 06/06/18 07:24 06/06/18 08:00 Temperature 99 F Pulse Rate 93 H 105 H Respiratory Rate 27 H 36 H Blood Pressure 172/79 H 162/120 H Pulse Oximetry 96 97 98 06/06/18 09:00 06/06/18 10:00 06/06/18 11:00 Temperature Pulse Rate 86 95 H 96 H Respiratory Rate 31 H 32 H 30 H Blood Pressure 158/72 H 165/76 H 170/77 H Pulse Oximetry 98 97 97 Intake & Output 06/05/18 06/06/18 06/06/18 18:59 06:59 18:59 Intake Total 1672 / 1672 1150 / 1150 675 / 675 Output Total 2800 / 2800 1550 / 1550 Balance -1128 / -1128 -400 / -400 675 / 675 Weight 129.9 kg Intake: IV 1672 / 1672 1150 / 1150 675 / 675 Precedex Inj 200 MCG In NS Inj 50 / 50 48 ML @ 0.2 MCG/KG/HR 6.65 mls/ hr IV.CONT TITRATE PRN Rx#: [id number] NS Inj 1,000 ML @ 84 mls/hr IV. 1000 / 1000 CONT .[id number] JACOB Rx#:[id number] Sodium Chloride 23.4% Inj 188 1047 / 1047 MEQ In NS Inj 1,000 ML @ 20 mls /hr IV.CONT .Q24H JACOB Rx#: [id number] Ofirmev Inj 1,000 mg In 100 ml 100 / 100 @ 400 mls/hr IV.SIG Q8H PRN Rx# :[id number] Vancomycin Inj 2,000 MG In NS 520 / 520 520 / 520 Inj 500 ML @ 250 mls/hr IV.SIG Q18H JACOB Rx#:[id number] Keppra Inj 500 MG In NS Inj 100 105 / 105 105 / 105 ML @ 400 mls/hr IV.SIG Q12H JACOB Rx#:[id number] Output: Urine 1550 / 1550 Urine Amount (Catheter) 2800 / 2800 Indwelling Urethral Catheter 2800 / 2800 Other: Date of Last Bowel Movement 06/02/18 06/02/18 # Bowel Movements 0 Narrative: Physical examination A&O to place, time F/c x 4 full strength DHT in nose would like to leave complains of headache - Urinary Catheter Management Indwelling Urethral Catheter Cath placed during this visit: yes Reason for continuing: Hourly intake/output Insertion date: 06/03/18 Insertion time: 03:00 Assessment and Plan - Plan 68yoM admitted 06/03 with hemorrhage along posterior aspect of brainstem. MRA negative. Head CT 06/03/18 00:00 CONCLUSION: 1. Hemorrhage along the posterior aspect of the brainstem as above measuring up to 2.8 cm in maximal diameter. Mild mass effect on the brainstem. No hydrocephalus. Paranasal sinuses are clear. No acute bony abnormality. 06/06/[address] today given headache.
[2018-06-06] MEDS: Acetaminophen 325 MG Tablet PO PRN (12:05)
--- NOTE | 2018-06-06 13:37 | P.PNCC ---
Subjective Subjective Remarks/Hospital Course: 06/03: Patient is a 68-year-old male with past medical history significant for type 2 diabetes, hypertension, morbid obesity who presented to the [facility] emergency department with weakness and slurred speech. Symptoms present for 2 days, apparently he was found on the floor of his mobile home. He was noted to have high fever at the [facility] his WBC count was 21.3 UA was positive. His sodium was 134 BUN 50 with a creatinine of 2.33 bicarb was 16 lactic acid was 6.8. CPK more than 3000 at the outside hospital. A CT of the head showed focal hemorrhage into the right quadrigeminal plate cistern. Dr. Hopkins was contacted who accepted the patient and requested admission to critical care. Patient was accepted to [facility] at [place] [address]. Deluca evaluated the patient in the [facility], he is lying in the bed. Slightly tachypneic moderate distress. Patient is oriented to place and person. CT of the head repeated here at [place] showed hemorrhage along the posterior aspect of the brainstem measuring up to 2.8 cm in maximal diameter. Mild mass effect on the brainstem. No hydrocephalus. I have started the patient on Cardene infusion for tight blood pressure control. Zosyn for UTI. 2% saline will be started to keep sodium above 150. Avoid mannitol due to renal failure. Keppra for seizure prophylaxis. I am unable to find coags but platelet count was normal. 06/04: MRSA bacteremia ob blood cultures drawn on admission. Currently on precedex, on room air. Awake, follows commands, speech, unintelligible. Started on IV vanc. ID consulted as concern for septic emboli/ endocarditis as cause for brainstem bleed. 06/05: 48 hours following a mid brain spontaneous hemorrhage complicated by numerous MRSA blood cultures. Blood pressure acceptably well controlled. Fever pattern persists. Patient tolerating extubation and protecting airway adequately. Taper completely off Precedex. Serum osmolality acceptably concentrated. 06/06: Serum osmolality acceptable, will allow sodium to drift back into the lower 150s now. Patient is alert and interactive. He moves 4 limbs spontaneously. Episodic fevers to 102+. We will continue with infectious disease workup for source of bacteremia. Endocarditis remains high on the list of possibilities. Objective Vital Signs / I&O: Vital Signs 06/05/18 14:00 06/05/18 15:00 06/05/18 16:00 Temperature 100.7 F H Pulse Rate 100 H 98 H 93 H Respiratory Rate 28 H 27 H 29 H Blood Pressure 164/73 H 144/65 H 156/68 H Pulse Oximetry 100 98 97 06/05/18 17:00 06/05/18 18:00 06/05/18 19:00 Temperature Pulse Rate 97 H 101 H 114 H Respiratory Rate 29 H 29 H 35 H Blood Pressure 168/75 H 168/70 H 169/78 H Pulse Oximetry 98 97 98 06/05/18 19:30 06/05/18 20:00 06/05/18 20:09 Temperature 100.2 F H Pulse Rate 102 H 103 H 84 Respiratory Rate 27 H 27 H 27 H Blood Pressure 169/73 H 172/76 H 154/67 H Pulse Oximetry 97 97 97 06/05/18 21:00 06/05/18 22:00 06/05/18 22:25 Temperature Pulse Rate 96 H 102 H Respiratory Rate 27 H 30 H Blood Pressure 168/72 H 173/77 H Pulse Oximetry 97 97 99 06/05/18 23:27 06/05/18 23:46 06/06/18 00:00 Temperature 102.5 F H Pulse Rate 109 H 100 H Respiratory Rate 33 H 26 H Blood Pressure 152/72 H 152/72 H 154/71 H Pulse Oximetry 98 97 06/06/18 00:12 06/06/18 00:30 06/06/18 01:00 Temperature 100 F H Pulse Rate 94 H 78 88 Respiratory Rate 28 H 29 H 29 H Blood Pressure 140/65 148/66 H Pulse Oximetry 96 95 96 06/06/18 01:30 06/06/18 02:00 06/06/18 02:30 Temperature Pulse Rate 86 85 89 Respiratory Rate 29 H 28 H 29 H Blood Pressure 149/68 H 150/69 H 158/71 H Pulse Oximetry 96 96 96 06/06/18 03:00 06/06/18 03:30 06/06/18 04:00 Temperature 99.7 F H Pulse Rate 90 85 89 Respiratory Rate 30 H 27 H 27 H Blood Pressure 145/65 H 145/65 H 155/70 H Pulse Oximetry 96 96 96 06/06/18 04:30 06/06/18 05:00 06/06/18 05:30 Temperature Pulse Rate 85 86 Respiratory Rate 29 H 35 H Blood Pressure 132/60 152/67 H 151/67 H Pulse Oximetry 97 96 06/06/18 06:00 06/06/18 07:00 06/06/18 07:24 Temperature Pulse Rate 89 93 H Respiratory Rate 28 H 27 H Blood Pressure 153/69 H 172/79 H Pulse Oximetry 96 96 97 06/06/18 08:00 06/06/18 09:00 06/06/18 10:00 Temperature 99 F Pulse Rate 105 H 86 95 H Respiratory Rate 36 H 31 H 32 H Blood Pressure 162/120 H 158/72 H 165/76 H Pulse Oximetry 98 98 97 06/06/18 11:00 06/06/18 12:00 06/06/18 13:00 Temperature 99.3 F Pulse Rate 96 H 110 H 95 H Respiratory Rate 30 H 32 H 28 H Blood Pressure 170/77 H 144/67 H 151/70 H Pulse Oximetry 97 97 95 Intake & Output 06/05/18 06/06/18 06/06/18 18:59 06:59 18:59 Intake Total 1672 / 1672 1150 / 1150 675 / 675 Output Total 2800 / 2800 1550 / 1550 Balance -1128 / -1128 -400 / -400 675 / 675 Weight 129.9 kg Intake: IV 1672 / 1672 1150 / 1150 675 / 675 Precedex Inj 200 MCG In NS Inj 50 / 50 48 ML @ 0.2 MCG/KG/HR 6.65 mls/ hr IV.CONT TITRATE PRN Rx#: [id number] NS Inj 1,000 ML @ 84 mls/hr IV. 1000 / 1000 CONT .[id number] JACOB Rx#:[id number] Sodium Chloride 23.4% Inj 188 1047 / 1047 MEQ In NS Inj 1,000 ML @ 20 mls /hr IV.CONT .Q24H JACOB Rx#: [id number] Ofirmev Inj 1,000 mg In 100 ml 100 / 100 @ 400 mls/hr IV.SIG Q8H PRN Rx# :[id number] Vancomycin Inj 2,000 MG In NS 520 / 520 520 / 520 Inj 500 ML @ 250 mls/hr IV.SIG Q18H JACOB Rx#:[id number] Keppra Inj 500 MG In NS Inj 100 105 / 105 105 / 105 ML @ 400 mls/hr IV.SIG Q12H JACOB Rx#:[id number] Output: Urine 1550 / 1550 Urine Amount (Catheter) 2800 / 2800 Indwelling Urethral Catheter 2800 / 2800 Other: Date of Last Bowel Movement 06/02/18 06/02/18 # Bowel Movements 0 Result Diagrams: 06/05/18 04:07 06/06/18 04:13 Objective Remarks: GENERAL: 68-year-old male lying in ICU bed in no acute distress. SKIN: Focused skin assessment warm/dry. HEAD: Atraumatic. Normocephalic. EYES: Pupils equal and round. No scleral icterus. No injection or drainage. ENT: No nasal bleeding or discharge. Oral cavity dry. Trachea midline. CARDIOVASCULAR: Normal S1-S2. No murmurs. Regular rate and rhythm. No venous distention. RESPIRATORY: Mildly tachypneic but good bilateral air entry, few rhonchi, no adventitious sounds GASTROINTESTINAL: Abdomen soft, non-tender, nondistended. BS present. No guarding. MUSCULOSKELETAL: Warm, well perfused. NEUROLOGICAL: Pupils equal, reactive, Motor function grossly apparent all 4 limbs although there is generalized weakness. Appears to understand conversation. Assessment and Plan - Problem List (1) 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 Status: Acute (2) Encephalopathy acute Code(s): G93.40 - Encephalopathy, unspecified Status: Acute (3) Acute kidney failure Code(s): N17.9 - Acute kidney failure, unspecified Status: Acute (4) Severe sepsis Code(s): A41.9 - Sepsis, unspecified organism; R65.20 - Severe sepsis without septic shock Status: Acute (5) Metabolic acidemia Code(s): E87.2 - Acidosis Status: Acute (6) UTI (urinary tract infection) Code(s): N39.0 - Urinary tract infection, site not specified Status: Acute (7) Lactic acidosis Code(s): E87.2 - Acidosis Status: Acute (8) Rhabdomyolysis Code(s): M62.82 - Rhabdomyolysis Status: Acute (9) Obesity Code(s): E66.9 - Obesity, unspecified Status: Chronic (10) Hypertension Code(s): I10 - Essential (primary) hypertension Status: Chronic (11) Diabetes Code(s): E11.9 - Type 2 diabetes mellitus without complications Status: Chronic - Assessment and Plan Plan: NEURO: Brainstem hemorrhage measuring up to 2.8 cm in maximal diameter, mild mass effect Acute encephalopathy -Repeat CT findings as above -Neurosurgery Dr. Hopkins consulted and following -2% saline to keep sodium 150-155 -Close neuro monitoring. MRI/MRA brain -If he develops hydrocephalus will need EVD -Placed on Keppra for seizure prophylaxis -With MRSA bacteremia suspect septic emboli with mycotic aneurism vs hypertensive bleed. -Less agitated today, discontinue Precedex. RESP: Past smoking -DuoNeb every as needed -Monitor closely for airway protection -At high risk for respiratory decompensation and requiring intubation -Mildly tachypneic -Incentive spirometry CV: Lactic acidemia History of hypertension -Lactic acid at the outside hospital was 6.8 -Normal saline IV fluids, transthoracic echo -IV fluid normal saline and 2% saline -Cardene infusion to keep blood pressure less than 140/90 -May need oral scheduled medication for blood pressure control, start Lopressor twice daily GI: -Nasogastric tube for medications and feeds if fails swallow on 06/05 : Acute kidney failure Rhabdomyolysis -Monitor renal function closely. Place Hyas catheter. -IV fluid resuscitation and maintenance fluid as above -Check renal ultrasound -Resolving daily ID: Severe sepsis/septic shock UTI -Antibiotics with Zosyn renally dosed. IV vancomycin. Blood cultures positive for MRSA (10/07) -ID consulted-Dr. Rodriguez -Will definitely need LAURIE to eval for endocarditis. HEME: Leukocytosis secondary to sepsis -Monitor CBC, coags ENDO: Type 2 diabetes -Sliding scale insulin -Add basal long-acting insulin PROPH: -Bilateral lower extremity SCDs. IV famotidine. Chemical DVT prophylaxis is contraindicated LINES: -Utilize peripheral IVs, central line if needed Overall impression: Blood pressure control remains problematic and will need additional scheduled medication. Agitation appears better controlled. Bacteremia remains crucial and possibly life-threatening problem -we need to find the source. (1) Brain stem hemorrhage Qualifiers: Intracerebral hemorrhage etiology: nontraumatic
[2018-06-06] MEDS: hydrALAZINE 50 MG Tablet PO SCH ×2 (14:28→20:09)
[2018-06-06] MEDS: Metoprolol Tartrate 25 MG Tablet PO SCH ×2 (14:34→20:09)
--- NOTE | 2018-06-06 15:34 | CT ---
EXAM DATE: 06/06/2018 3:18 PM EST AGE/SEX: 68 years / Male INDICATIONS: Intracerebral hemorrhage CLINICAL DATA: This is the patient's initial encounter. Patient reports that signs and symptoms have been present for 1 day and indicates a pain score of 4/10. MEDICAL/SURGICAL HISTORY: Diabetes. Hypertension. Renal Failure None. RADIATION DOSE: 49.49 CTDI (mGy) COMPARISON: [facility] [place], CT HEAD W/O CONTRAST, 06/04/2018. [facility] [place], CT HEAD W/O CONTRAST, 06/03/2018. . TECHNIQUE: CT of the head without contrast. Using automated exposure control and adjustment of the mA and/or kV according to patient size, radiation dose was kept as low as reasonably achievable to ob tain optimal diagnostic quality images. DICOM format image data is available electronically for revi ew and comparison. FINDINGS: There has been slight interval improvement of the focal area of hemorrhage within the right basilar c istern which measures 1.9 x 0.8 cm. Diffuse cerebral atrophy is stable. No midline shift or acute inf arct is noted. Mild periventricular white matter small vessel ischemic changes are noted. CONCLUSION: 1. Slight interval improvement of the focal area of hemorrhage within the right basilar cistern whic h measures 1.9 x 0.8 cm. 2. Diffuse cerebral atrophy is stable. 3. Mild periventricular white matter small vessel ischemic changes are noted. . Electronically signed by: Nicholas Barker MD 06/06/2018 3:33 PM EST
[2018-06-06] MEDS: Vancomycin Inj 2,000 MG in Sodium Chlor 0.9% Inj 500 ML IV.SIG SCH (17:45)
--- NOTE | 2018-06-06 20:24 | P.PNID ---
Subjective Remarks: more awake today oriented x 3, speech is incoherent More + blood c lx Antibiotics: vancop zosyn Allergies/Adverse Reactions: Allergies No Known Allergies Allergy (Verified 06/03/18 01:32) Objective Vital Signs 06/05/18 21:00 06/05/18 22:00 06/05/18 22:25 Temperature Pulse Rate 96 H 102 H Respiratory Rate 27 H 30 H Blood Pressure 168/72 H 173/77 H Pulse Oximetry 97 97 99 06/05/18 23:27 06/05/18 23:46 06/06/18 00:00 Temperature 102.5 F H Pulse Rate 109 H 100 H Respiratory Rate 33 H 26 H Blood Pressure 152/72 H 152/72 H 154/71 H Pulse Oximetry 98 97 06/06/18 00:12 06/06/18 00:30 06/06/18 01:00 Temperature 100 F H Pulse Rate 94 H 78 88 Respiratory Rate 28 H 29 H 29 H Blood Pressure 140/65 148/66 H Pulse Oximetry 96 95 96 06/06/18 01:30 06/06/18 02:00 06/06/18 02:30 Temperature Pulse Rate 86 85 89 Respiratory Rate 29 H 28 H 29 H Blood Pressure 149/68 H 150/69 H 158/71 H Pulse Oximetry 96 96 96 06/06/18 03:00 06/06/18 03:30 06/06/18 04:00 Temperature 99.7 F H Pulse Rate 90 85 89 Respiratory Rate 30 H 27 H 27 H Blood Pressure 145/65 H 145/65 H 155/70 H Pulse Oximetry 96 96 96 06/06/18 04:30 06/06/18 05:00 06/06/18 05:30 Temperature Pulse Rate 85 86 Respiratory Rate 29 H 35 H Blood Pressure 132/60 152/67 H 151/67 H Pulse Oximetry 97 96 06/06/18 06:00 06/06/18 07:00 06/06/18 07:24 Temperature Pulse Rate 89 93 H Respiratory Rate 28 H 27 H Blood Pressure 153/69 H 172/79 H Pulse Oximetry 96 96 97 06/06/18 08:00 06/06/18 09:00 06/06/18 10:00 Temperature 99 F Pulse Rate 105 H 86 95 H Respiratory Rate 36 H 31 H 32 H Blood Pressure 162/120 H 158/72 H 165/76 H Pulse Oximetry 98 98 97 06/06/18 11:00 06/06/18 12:00 06/06/18 13:00 Temperature 99.3 F Pulse Rate 96 H 110 H 95 H Respiratory Rate 30 H 32 H 28 H Blood Pressure 170/77 H 144/67 H 151/70 H Pulse Oximetry 97 97 95 06/06/18 14:00 06/06/18 15:00 06/06/18 16:00 Temperature 99.6 F Pulse Rate 104 H 88 96 H Respiratory Rate 31 H 36 H 30 H Blood Pressure 171/79 H 125/69 165/77 H Pulse Oximetry 97 95 97 06/06/18 17:00 06/06/18 18:00 Temperature Pulse Rate 108 H 94 H Respiratory Rate 34 H 36 H Blood Pressure 161/70 H 146/68 H Pulse Oximetry 97 96 Intake & Output 06/06/18 06/06/18 06/07/18 06:59 18:59 06:59 Intake Total 1150 / 1150 2200 / 2200 Output Total 1550 / 1550 2150 / 2150 Balance -400 / -400 50 / 50 Weight 129.9 kg Intake: IV 1150 / 1150 2080 / 2080 Precedex Inj 200 MCG In NS Inj 50 / 50 48 ML @ 0.2 MCG/KG/HR 6.65 mls/ hr IV.CONT TITRATE PRN Rx#: [id number] NS Inj 1,000 ML @ 84 mls/hr IV. 1000 / 1000 850 / 850 CONT .[id number] JACOB Rx#:[id number] Sodium Chloride 23.4% Inj 188 450 / 450 MEQ In NS Inj 1,000 ML @ 20 mls /hr IV.CONT .Q24H JACOB Rx#: [id number] Ofirmev Inj 1,000 mg In 100 ml 100 / 100 @ 400 mls/hr IV.SIG Q8H PRN Rx# :[id number] Vancomycin Inj 2,000 MG In NS 520 / 520 Inj 500 ML @ 250 mls/hr IV.SIG Q18H JACOB Rx#:[id number] Keppra Inj 500 MG In NS Inj 100 210 / 210 ML @ 400 mls/hr IV.SIG Q12H JACOB Rx#:[id number] Other 120 / 120 Output: Urine 1550 / 1550 Urine Amount (Catheter) 2149 / 2149 Indwelling Urethral Catheter 2149 Other: Date of Last Bowel Movement 06/02/18 # Bowel Movements 0 0 06/04/18 16:45 Blood - Peripheral Aerobic Blood Culture - Final S. aureus MRSA 06/04/18 16:45 Blood - Peripheral Anaerobic Blood Culture - Preliminary No growth in 2 days 06/04/18 16:45 Blood - Peripheral Aerobic Blood Culture - Final S. aureus MRSA 06/04/18 16:45 Blood - Peripheral Anaerobic Blood Culture - Preliminary No growth in 2 days 06/03/18 05:20 Blood - Peripheral Aerobic Blood Culture - Final S. aureus MRSA 06/03/18 05:20 Blood - Peripheral Anaerobic Blood Culture - Final S. aureus MRSA 06/03/18 07:27 Blood - Peripheral Aerobic Blood Culture - Final S. aureus MRSA 06/03/18 07:27 Blood - Peripheral Anaerobic Blood Culture - Final S. aureus MRSA 06/05/18 04:07 Blood - Peripheral Aerobic Blood Culture - Preliminary gram positive cocci 06/05/18 04:07 Blood - Peripheral Anaerobic Blood Culture - Preliminary gram positive cocci 06/06/18 04:13 Blood - Peripheral Aerobic Blood Culture - Pending 06/06/18 04:13 Blood - Peripheral Anaerobic Blood Culture - Pending 06/03/18 05:20 Catheterized Urine Urine Culture - Final S. aureus MRSA Lab - Hematology Results 06/05/18 04:07 WBC 10.1 RBC 3.98 L Hgb 11.9 L Hct 35.9 L MCV 90.2 MCH 29.9 MCHC 33.2 RDW 17.1 Plt Count 98 L MPV 9.4 Prelim Diff (Auto) Slide review pending Neut % (Auto) 79.7 H Lymph % (Auto) 6.7 L Caroline % (Auto) 13.4 H Eos % (Auto) 0.1 Baso % (Auto) 0.1 Neut # (Auto) 8.0 H Lymph # (Auto) 0.7 L Caroline # (Auto) 1.4 H Eos # (Auto) 0.0 Baso # (Auto) 0.0 WBC Differential Manual diff final Seg Neuts % (Manual) 61 Band Neuts % (Manual) 19 H Lymphocytes % (Manual) 7 L Monocytes % (Manual) 13 H Abs Neuts (Manual) 8.1 H Differential Comment . Platelet Estimate Low L Platelet Morphology Normal Ovalocytes 1+ H Lab - Chemistry Results 06/04/18 06/04/18 06/05/18 20:41 22:36 04:07 Sodium 155 H Potassium 3.9 Chloride 127 H Carbon Dioxide 21.2 Anion Gap 7 BUN 35 H Creatinine 1.31 H 1.43 H Estimated GFR 54 L 49 L POC Glucose 163 H Random Glucose 159 H Calcium 7.7 L Calcium Adj for Albumin Total Bilirubin 1.0 AST 113 H ALT 55 Alkaline Phosphatase 46 Total Creatine Kinase 1666 H CK-MB (CK-2) 1.7 CK-MB (CK-2) % 0.1 Total Protein 6.1 L Albumin 2.1 L 06/05/18 06/05/18 06/05/18 05:57 08:38 15:17 Sodium Potassium Chloride Carbon Dioxide Anion Gap BUN Creatinine Estimated GFR POC Glucose 159 H 136 H 161 H Random Glucose Calcium Calcium Adj for Albumin Total Bilirubin AST ALT Alkaline Phosphatase Total Creatine Kinase CK-MB (CK-2) CK-MB (CK-2) % Total Protein Albumin 06/05/18 06/05/18 06/05/18 15:18 16:48 19:51 Sodium Potassium Chloride Carbon Dioxide Anion Gap BUN Creatinine Estimated GFR POC Glucose 192 H 148 H 130 H Random Glucose Calcium Calcium Adj for Albumin Total Bilirubin AST ALT Alkaline Phosphatase Total Creatine Kinase CK-MB (CK-2) CK-MB (CK-2) % Total Protein Albumin 06/06/18 06/06/18 06/06/18 00:02 04:13 10:11 Sodium 161 H* Potassium 3.8 Chloride 132 H Carbon Dioxide 20.3 L Anion Gap 9 BUN 32 H Creatinine 1.32 H Estimated GFR 54 L POC Glucose 153 H 185 H Random Glucose 144 H Calcium 7.4 L* Calcium Adj for Albumin 7.9 L Total Bilirubin 1.1 H AST 67 H ALT 46 Alkaline Phosphatase 52 Total Creatine Kinase CK-MB (CK-2) CK-MB (CK-2) % Total Protein 6.1 L Albumin 1.8 L 06/06/18 06/06/18 06/06/18 12:16 17:53 20:01 Sodium Potassium Chloride Carbon Dioxide Anion Gap BUN Creatinine Estimated GFR POC Glucose 134 H 152 H 168 H Random Glucose Calcium Calcium Adj for Albumin Total Bilirubin AST ALT Alkaline Phosphatase Total Creatine Kinase CK-MB (CK-2) CK-MB (CK-2) % Total Protein Albumin Imaging: ITS Impressions Abdomen/Bladder Ultrasound 06/03/18 00:00 CONCLUSION: 1. Bilateral simple cysts within the kidneys as above. 2. No findings to indicate renal obstruction. 3. Renal cortex appears of adequate thickness. Chest X-Ray 06/03/18 13:53 CONCLUSION: Negative examination. Abdomen/Pelvis CT 06/04/18 00:00 CONCLUSION: 1. The second and third portions of the duodenum appear mildly prominent and indistinct with mild surrounding inflammatory change extending into the adjacent mesentery. The findings are concerning for duodenitis. 2. Bilateral renal cysts. 3. Minimal pleural effusions and atelectasis in the lung bases. 4. The gallbladder is unremarkable. Head MRI 06/04/18 00:00 CONCLUSION: 1. There is a focal stable area of subacute hemorrhage adjacent to the posterior right midbrain measuring approximately 1.5 cm in length. This is not significantly changed in its overall appearance compared to the recent CT scan of the brain. No definite new areas of hemorrhage are demonstrated. 2. Stable diffuse bilateral cortical atrophy. Head MRA 06/04/18 00:00 CONCLUSION: 1. Atherosclerotic changes involving the left M2 segment. 2. No aneurysm or vascular abnormality identified. 3. Visualization of the known blood products along the right side of the brainstem. Neck MRA 06/04/18 00:00 CONCLUSION: 1. Unremarkable MRA of the carotids. Percent stenosis is calculated using the diameter of the stenotic region over the diameter of the normal distal internal carotid artery Abdomen X-Ray 06/05/18 00:00 CONCLUSION: Feeding tube distal tip is in the gastric body. Head CT 06/06/18 00:00 CONCLUSION: 1. Slight interval improvement of the focal area of hemorrhage within the right basilar cistern which measures 1.9 x 0.8 cm. 2. Diffuse cerebral atrophy is stable. 3. Mild periventricular white matter small vessel ischemic changes are noted. . Physical Exam: GENERAL: lethargic NAD morbidly obese SKIN: Warm and dry. NO rash below L knee a fluctuant erythematous nodule HEAD: Atraumatic. Normocephalic. EYES: Pupils equal and round. No scleral icterus. No injection or drainage. ENT: No nasal bleeding or discharge. Mucous membranes pink and moist. NECK: Trachea midline. No JVD. CARDIOVASCULAR: Regular rate and rhythm. RESPIRATORY: No accessory muscle use. Clear to auscultation. Breath sounds equal bilaterally. GASTROINTESTINAL: Abdomen soft, non-tender, nondistended. Hepatic and splenic margins not palpable. MUSCULOSKELETAL: Extremities without clubbing, cyanosis, or edema. No obvious deformities. NEUROLOGICAL: lethargic, but repossive PSYCHIATRIC: unable to assess Assessment and Plan - Plan Impression MRSA sepsis on presentation, worrisome for IE - MRSA not a common pathogen UTI Hemorrhage posterior fossa - ?concern if mycotic aneurysm: MRA negative for mycotic aneurism Hx DM, HTN, Obesity Renal insufficiency Recommendation Repeat blood culture to document clearing Continue Vanco: push levels to 20 add gent with close monitoring of GFR MR of L knee when stable When more stable, will need LAURIE Consider doing MRI of the brain CT abdomen and pelvis, will see if his creatinine will improve before ordering
--- NOTE | 2018-06-06 20:55 | MB ---
cc: Nitesh Odonnell MD DATE: 06/06/2018 HISTORY OF PRESENT ILLNESS: Ezra is a 68-year-old gentleman currently restrained with encephalopathy, intracranial bleed. He has a history of diabetes, hypertension, obesity. I cannot get a history from him as he has an encephalopathy. Further history is obtained from the chart. ALLERGIES: NONE. SOCIAL HISTORY: Smoking status is unknown. Denies alcohol use. MEDICATIONS: In the hospital: 1. Norvasc 10 mg daily. 2. Dexmedetomidine drip. 3. Pepcid 20 mg IV every 12 hours. 4. Hydralazine 50 mg b.i.d. 5. Insulin. 6. Levetiracetam 500 mg IV. 7. Magnesium supplementation. 8. Lopressor 25 mg b.i.d. 9. Potassium supplementation. PHYSICAL EXAMINATION: VITAL SIGNS: Blood pressure 146/68, respiratory rate between 34 and 36, pulse ranging between 94 and 108, temperature 99.6. GENERAL: He is awake, nonfocal, oriented x 0-1, in no acute distress. He is restrained. NECK: Supple. No JVD. No bruit. CARDIOVASCULAR: S1, S2. No murmurs, rubs or gallops. LUNGS: Clear to auscultation bilaterally. ABDOMEN: Soft, nontender, nondistended with positive bowel sounds. EXTREMITIES: No lower extremity edema. LABORATORY DATA: He had an abdomen and bladder ultrasound on 06/03/2018 which shows bilateral simple cysts within the kidneys. No findings to indicate renal obstruction. Renal cortex appears of adequate thickness. Head CT on 06/04/2018: "Stable blood products in the posterior fossa as above." No other acute abnormalities identified. Stable hyperdensity along the right lateral aspect of the midbrain and mercedes measuring approximately 2.3 x 0.8 cm. It has minimal local mass effect and is not significantly changed. Neck MRA unremarkable of the carotids. Head MRI: There is a focal stable area of subacute hemorrhage adjacent to the posterior right mid brain measuring approximately 1.5 cm in length. This is not significantly changed in its overall appearance compared to the recent CT scan of the brain. No definite areas of hemorrhage or demonstrated stable diffuse bilateral cortical atrophy. Head MRA: Atherosclerotic changes involving the left M2 segment. No aneurysm or vascular abnormality identified. Visualization of the known blood products along the right side of the brainstem. Echocardiogram: EF 60-65%, trace MR. Estimated PA systolic pressure 42 mmHg, mild AI. Abdominal pelvic CT: Second and third portion of the duodenum appeared mildly prominent and indistinct with mild surrounding inflammatory change extending into the adjacent mesentery. Findings are concerning for duodenitis, bilateral renal cysts, minimal pleural effusions, atelectasis in the lung bases. The gallbladder is unremarkable. The blood cultures are growing out MRSA on 06/03/2018 and 06/04/2018, and then gram-positive cocci on 06/05/2018. LABORATORY DATA: Sodium is 161, potassium 3.8, chloride 132, bicarbonate 20.3, creatinine 1.32, glucose 144, total bilirubin is 1.1, AST 67, INR 1.2. Sodium 110.1, hemoglobin 11.9, hematocrit 35.9, platelet count is 98. DIAGNOSES: 1. Brainstem hemorrhage. 2. Bacteremia. 3. Hypernatremia. 4. Anemia. 5. Thrombocytopenia. 6. Elevated white count. 7. Acute renal failure. 8. Elevated liver enzymes. 9. Hyperbilirubinemia. 10. Hypoalbuminemia. 11. Hyperglycemia. 12. Diabetes. 13. Encephalopathy. DISCUSSION: At this point in time, the patient has multiple comorbidities as detailed above and is not likely to be a surgical candidate in the short-term setting. If he becomes more medically stable with correction of his hypernatremia and encephalopathy, as well as confirmed stabilization of his brainstem bleeding, and he has an acceptable prognosis from a neurologic and neurosurgical standpoint, we could consider transesophageal echocardiography at that point in time. We will continue to follow. MD LARRY Vizcaino/koffi , 08:11 PM , 08:21 PM
[2018-06-06] MEDS ORDERED: Gentamicin Consult Pharmacy 1 EACH OTHER SCH (21:00)
--- NOTE | 2018-06-06 21:14 | XR ---
EXAM DATE: 06/06/2018 9:10 PM EST AGE/SEX: 68 years / Male INDICATIONS: Swelling. CLINICAL DATA: This is the patient's initial encounter. Patient reports that signs and symptoms have been present for 1 day and indicates a pain score of Nonresponsive. MEDICAL/SURGICAL HISTORY: . Diabetes. Hypertension. Renal Failure None. COMPARISON: No prior exams available for comparison. FINDINGS: Bony structures are intact and in normal alignment. Prominent degenerative osteoarthritis most promin ently involving the medial and patellofemoral compartments. Moderate-sized suprapatellar effusion. No radiopaque foreign bodies. CONCLUSION: 1. Moderate suprapatellar effusion. 2. Prominent degenerative osteoarthritis. Electronically signed by: Stanislaw Melchor MD 06/06/2018 9:12 PM EST
[2018-06-06] MEDS: Gentamicin Inj 100 MG in Sodium Chlor 0.9% Inj 100 ML IV.SIG SCH (23:00)
[2018-06-07] MEDS: Insulin NovoLIN Regular Correctional Sugar Inj SQ SCH ×6 (01:53→22:03)
[2018-06-07] MEDS: Labetalol HCl Inj 100 MG/20 ML Vial IV.PUSH PRN (02:07)
[2018-06-07] MEDS: Chlorhexidine Gluconate 2% 1 Pack (2 Cloths) TOPICAL SCH (04:27)
[2018-06-07] MEDS: Gentamicin Inj 100 MG in Sodium Chlor 0.9% Inj 100 ML IV.SIG SCH ×2 (05:54→14:38)
[2018-06-07 05:55] LABS: Baso % (Auto) 0.1 % (0.0-2.0); Eos % (Auto) 0.3 % (0.0-4.0); Hemoglobin 11.8 gm/dL (13.0-17.0); Lymph # (Auto) 1.1 th/mm3 (1.0-4.8); Lymph % (Auto) 8.8 % (9.0-44.0); Mean Corpuscular HGB Conc 33.8 % (32.0-36.0); Mean Corpuscular Hemoglobin 29.9 pg (27.0-34.0); Mean Corpuscular Volume 88.4 fL (80.0-100.0); Mean Platelet Volume 9.5 fL (7.0-11.0); Mono # (Auto) 1.2 th/mm3 (0.0-0.9); Mono % (Auto) 9.5 % (0.0-8.0); Neut % (Auto) 81.3 % (16.0-70.0); Platelet Count 183 th/mm3 (150-450); Red Blood Count 3.96 mil/mm3 (4.50-5.90); Red Cell Distribution Width 16.6 % (11.6-17.2); White Blood Count 12.3 th/mm3 (4.0-11.0)
[2018-06-07] MEDS: amLODIPine 10 MG Tablet PO SCH (08:05)
[2018-06-07] MEDS: Metoprolol Tartrate 25 MG Tablet PO SCH ×2 (08:05→22:03)
[2018-06-07] MEDS: hydrALAZINE 50 MG Tablet PO SCH ×2 (08:06→21:05)
[2018-06-07] MEDS: Mupirocin 2% Nasal Oint Topical Syringe EACH NARE SCH ×2 (08:06→21:05)
[2018-06-07] MEDS: Senna/Docusate Sodium 8.6/50 MG Tablet PO SCH ×2 (08:06→21:08)
[2018-06-07] MEDS: Famotidine PF Inj 20 MG/2 ML Vial IV.PUSH SCH ×2 (08:08→21:06)
--- NOTE | 2018-06-07 10:06 | P.PNCC ---
Subjective Subjective Remarks/Hospital Course: 06/03: Patient is a 68-year-old male with past medical history significant for type 2 diabetes, hypertension, morbid obesity who presented to the [facility] emergency department with weakness and slurred speech. Symptoms present for 2 days, apparently he was found on the floor of his mobile home. He was noted to have high fever at the [facility] his WBC count was 21.3 UA was positive. His sodium was 134 BUN 50 with a creatinine of 2.33 bicarb was 16 lactic acid was 6.8. CPK more than 3000 at the outside hospital. A CT of the head showed focal hemorrhage into the right quadrigeminal plate cistern. Dr. Hopkins was contacted who accepted the patient and requested admission to critical care. Patient was accepted to [facility] at [place] [address]. Deluca evaluated the patient in the [facility], he is lying in the bed. Slightly tachypneic moderate distress. Patient is oriented to place and person. CT of the head repeated here at [place] showed hemorrhage along the posterior aspect of the brainstem measuring up to 2.8 cm in maximal diameter. Mild mass effect on the brainstem. No hydrocephalus. I have started the patient on Cardene infusion for tight blood pressure control. Zosyn for UTI. 2% saline will be started to keep sodium above 150. Avoid mannitol due to renal failure. Keppra for seizure prophylaxis. I am unable to find coags but platelet count was normal. 06/04: MRSA bacteremia ob blood cultures drawn on admission. Currently on precedex, on room air. Awake, follows commands, speech, unintelligible. Started on IV vanc. ID consulted as concern for septic emboli/ endocarditis as cause for brainstem bleed. 06/05: 48 hours following a mid brain spontaneous hemorrhage complicated by numerous MRSA blood cultures. Blood pressure acceptably well controlled. Fever pattern persists. Patient tolerating extubation and protecting airway adequately. Taper completely off Precedex. Serum osmolality acceptably concentrated. 06/06: Serum osmolality acceptable, will allow sodium to drift back into the lower 150s now. Patient is alert and interactive. He moves 4 limbs spontaneously. Episodic fevers to 102+. We will continue with infectious disease workup for source of bacteremia. Endocarditis remains high on the list of possibilities. 06/07: Awake, alert, following commands. Speech very slurred however responds appropriately. Slight disorientation. Thought he was in [place]. Knows he is in the hospital. Complains of back pain. Objective Vital Signs / I&O: Vital Signs 06/06/18 10:00 06/06/18 11:00 06/06/18 12:00 Temperature 99.3 F Pulse Rate 95 H 96 H 110 H Respiratory Rate 32 H 30 H 32 H Blood Pressure 165/76 H 170/77 H 144/67 H Pulse Oximetry 97 97 97 06/06/18 13:00 06/06/18 14:00 06/06/18 15:00 Temperature Pulse Rate 95 H 104 H 88 Respiratory Rate 28 H 31 H 36 H Blood Pressure 151/70 H 171/79 H 125/69 Pulse Oximetry 95 97 95 06/06/18 16:00 06/06/18 17:00 06/06/18 18:00 Temperature 99.6 F Pulse Rate 96 H 108 H 94 H Respiratory Rate 30 H 34 H 36 H Blood Pressure 165/77 H 161/70 H 146/68 H Pulse Oximetry 97 97 96 06/06/18 19:00 06/06/18 20:00 06/06/18 21:00 Temperature 102.5 F H Pulse Rate 105 H 109 H 96 H Respiratory Rate 28 H 27 H 26 H Blood Pressure 169/80 H 161/77 H 136/65 Pulse Oximetry 98 96 97 06/06/18 21:26 06/06/18 22:00 06/06/18 23:00 Temperature Pulse Rate 91 H 96 H Respiratory Rate 27 H 25 H Blood Pressure 131/60 140/65 Pulse Oximetry 95 95 96 06/06/18 23:30 06/07/18 00:00 06/07/18 01:00 Temperature 101.5 F H Pulse Rate 97 H 100 H 101 H Respiratory Rate 24 27 H 25 H Blood Pressure 137/64 137/64 123/53 L Pulse Oximetry 96 97 96 06/07/18 02:00 06/07/18 03:00 06/07/18 04:00 Temperature 101.3 F H Pulse Rate 109 H 90 95 H Respiratory Rate 41 H 36 H 30 H Blood Pressure 142/112 H 128/62 127/58 L Pulse Oximetry 98 96 97 06/07/18 05:00 06/07/18 06:00 06/07/18 07:00 Temperature 99.7 F H Pulse Rate 101 H 103 H 95 H Respiratory Rate 28 H 26 H 31 H Blood Pressure 123/59 L 125/60 120/56 L Pulse Oximetry 96 96 95 06/07/18 08:00 06/07/18 09:00 Temperature 98.8 F Pulse Rate 96 H 95 H Respiratory Rate 28 H 30 H Blood Pressure 135/63 129/59 L Pulse Oximetry 96 97 Intake & Output 06/06/18 06/07/18 06/07/18 18:59 06:59 18:59 Intake Total 0 / 0 2207.5 / 2207.5 102.5 / 102.5 Output Total 2149 / 2149 1000 / 1000 Balance 50 / 50 1207.5 / 1207.5 102.5 / 102.5 Weight 133.1 kg Intake: IV 0 / 0 1927.5 / 1927.5 102.5 / 102.5 LR 1000 mL Inj 1,000 ML @ 75 1000 / 1000 mls/hr IV.CONT .[id number] JACOB Rx# :[id number] NS Inj 1,000 ML @ 84 mls/hr IV. 850 / 850 CONT .[id number] JACOB Rx#:[id number] Sodium Chloride 23.4% Inj 188 450 / 450 MEQ In NS Inj 1,000 ML @ 20 mls /hr IV.CONT .Q24H JACOB Rx#: [id number] Ofirmev Inj 1,000 mg In 100 ml 200 / 200 @ 400 mls/hr IV.SIG Q8H PRN Rx# :[id number] Gentamicin Inj 100 MG In NS Inj 102.5 / 102.5 102.5 / 102.5 100 ML @ 100 mls/hr IV.SIG Q8HR JACOB Rx#:[id number] Vancomycin Inj 2,000 MG In NS 520 / 520 520 / 520 Inj 500 ML @ 250 mls/hr IV.SIG Q18H JACOB Rx#:[id number] Keppra Inj 500 MG In NS Inj 100 210 / 210 105 / 105 ML @ 400 mls/hr IV.SIG Q12H JACOB Rx#:[id number] Tube Feeding 280 / 280 Other 120 / 120 Output: Urine Amount (Catheter) 2149 1000 / 1000 Indwelling Urethral Catheter 2149 1000 / 1000 Other: Date of Last Bowel Movement 06/02/18 06/02/18 # Bowel Movements 0 Result Diagrams: 06/07/18 05:04 06/07/18 05:04 Objective Remarks: GENERAL: 68-year-old male lying in ICU bed in no acute distress. SKIN: Focused skin assessment warm/dry. HEAD: Atraumatic. Normocephalic. EYES: Pupils equal and round. No scleral icterus. No injection or drainage. ENT: No nasal bleeding or discharge. Oral cavity dry. Trachea midline. CARDIOVASCULAR: Normal S1-S2. No murmurs. Regular rate and rhythm. No venous distention. RESPIRATORY: Mildly tachypneic but good bilateral air entry, few rhonchi, no adventitious sounds GASTROINTESTINAL: Abdomen soft, non-tender, nondistended. BS present. No guarding. MUSCULOSKELETAL: Warm, well perfused. NEUROLOGICAL: Pupils equal, reactive, Motor function grossly apparent all 4 limbs although there is generalized weakness. Appears to understand conversation. Assessment and Plan - Problem List (1) 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 Status: Acute (2) Encephalopathy acute Code(s): G93.40 - Encephalopathy, unspecified Status: Acute (3) Acute kidney failure Code(s): N17.9 - Acute kidney failure, unspecified Status: Acute (4) Severe sepsis Code(s): A41.9 - Sepsis, unspecified organism; R65.20 - Severe sepsis without septic shock Status: Acute (5) Metabolic acidemia Code(s): E87.2 - Acidosis Status: Acute (6) UTI (urinary tract infection) Code(s): N39.0 - Urinary tract infection, site not specified Status: Acute (7) Lactic acidosis Code(s): E87.2 - Acidosis Status: Acute (8) Rhabdomyolysis Code(s): M62.82 - Rhabdomyolysis Status: Acute (9) Obesity Code(s): E66.9 - Obesity, unspecified Status: Chronic (10) Hypertension Code(s): I10 - Essential (primary) hypertension Status: Chronic (11) Diabetes Code(s): E11.9 - Type 2 diabetes mellitus without complications Status: Chronic - Assessment and Plan Plan: NEURO: Brainstem hemorrhage measuring up to 2.8 cm in maximal diameter, mild mass effect Acute encephalopathy -Repeat CT findings as above -Neurosurgery Dr. Hopkins consulted and following - off 2% saline -Close neuro monitoring. MRI/MRA brain -If he develops hydrocephalus will need EVD -Placed on Keppra for seizure prophylaxis -With MRSA bacteremia suspect septic emboli with mycotic aneurism vs hypertensive bleed. -Less agitated today, Off Precedex. -Discussed with neurosurgery [employer] regarding back pain. They will decide regarding ordering MRI spine to evaluate for epidural abscess. RESP: Past smoking -DuoNeb every as needed -Monitor closely for airway protection -At high risk for respiratory decompensation and requiring intubation -Mildly tachypneic -Incentive spirometry CV: Lactic acidemia History of hypertension -Lactic acid at the outside hospital was 6.8 -Normal saline IV fluids, transthoracic echo -IV fluid normal saline and 2% saline -Cardene infusion to keep blood pressure less than 140/90 -May need oral scheduled medication for blood pressure control, start Lopressor twice daily GI: -Nasogastric tube for medications and feeds if fails swallow on 06/05 : Acute kidney failure Rhabdomyolysis -Monitor renal function closely. Place [place] catheter. -IV fluid resuscitation and maintenance fluid as above -Check renal ultrasound -Resolving daily ID: Severe sepsis/septic shock UTI -Antibiotics with Zosyn renally dosed. IV vancomycin. Blood cultures positive for MRSA (10/07) -ID consulted-Dr. Rodriguez -Will definitely need LAURIE to eval for endocarditis. -Awaiting MRI left knee due to swelling as well as possible MRI spine after discussion with ID and neurosurgery. HEME: Leukocytosis secondary to sepsis -Monitor CBC, coags ENDO: Type 2 diabetes -Sliding scale insulin -Add basal long-acting insulin PROPH: -Bilateral lower extremity SCDs. IV famotidine. Chemical DVT prophylaxis is contraindicated LINES: -Utilize peripheral IVs, central line if needed Overall impression: Blood pressure control remains problematic and will need additional scheduled medication. Agitation appears better controlled. Bacteremia remains crucial and possibly life-threatening problem -we need to find the source. (1) Brain stem hemorrhage Qualifiers: Intracerebral hemorrhage etiology: nontraumatic
[2018-06-07] MEDS ORDERED: Pharmacy Ordered Lab Info OTHER ONE ×2 (10:45→13:45)
[2018-06-07] MEDS: Vancomycin Inj 2,000 MG in Sodium Chlor 0.9% Inj 500 ML IV.SIG SCH (13:18)
--- NOTE | 2018-06-07 13:29 | P.DIET ---
Nutritional Evaluation Type of nutrition evaluation: initial Nutrition consult regarding: Tube Feeding Objective - Diagnosis Brain Bleed - Objective % IBW: 145 (IBW = 202#) Body Weight Used for Calculations: IBW (91.8 kg) Energy Needs - Lower Range (kCal/kg): 24 Energy Needs - Upper Range (kCal/kg): 28 Lower Limit kCal/kg (kCals): 2,203 Upper Limit kCal/kg (kCals): 2,570 Lower Limit Protein Factor (Grams per Kg): 1.2 Upper Limit Protein Factor (Grams per Kg): 1.5 Lower Protein Needs (Protein): 110 Upper Protein Needs (Protein): 138 Dietitian Reviewed in Medical Record: Curent medications, Intake & Output, Labs , Medical history, Tube feeding Diet Order: NPO Speech Therapy Recommendations: Yes (npo (06/07)) Objective Comments: GLU 144 Assessment Assessment: Pt is at high nutrition risk 2' to their need for TFing. Current order is for Glucerna 1.5 @ 50 mls/hr. To meet needs with Glucerna 1.5, recommend goal rate of 60 mls/hr to provide 2160 kcals, 119 gms protein and 1093 mls of free water. Recommendations: Glucerna 1.5 @ 60 mls/hr goal Dietitian to Monitor: Lab values, Intake & Output, Tube feeding tolerance, Weight change, Medical course
--- NOTE | 2018-06-07 13:32 | P.PNNS ---
Subjective Interval history: pt with bacteremia, septicemia, c/o back pain. Physical Exam Vital signs: Vital Signs 06/06/18 14:00 06/06/18 15:00 06/06/18 16:00 Temperature 99.6 F Pulse Rate 104 H 88 96 H Respiratory Rate 31 H 36 H 30 H Blood Pressure 171/79 H 125/69 165/77 H Pulse Oximetry 97 95 97 06/06/18 17:00 06/06/18 18:00 06/06/18 19:00 Temperature Pulse Rate 108 H 94 H 105 H Respiratory Rate 34 H 36 H 28 H Blood Pressure 161/70 H 146/68 H 169/80 H Pulse Oximetry 97 96 98 06/06/18 20:00 06/06/18 21:00 06/06/18 21:26 Temperature 102.5 F H Pulse Rate 109 H 96 H Respiratory Rate 27 H 26 H Blood Pressure 161/77 H 136/65 Pulse Oximetry 96 97 95 06/06/18 22:00 06/06/18 23:00 06/06/18 23:30 Temperature Pulse Rate 91 H 96 H 97 H Respiratory Rate 27 H 25 H 24 Blood Pressure 131/60 140/65 137/64 Pulse Oximetry 95 96 96 06/07/18 00:00 06/07/18 01:00 06/07/18 02:00 Temperature 101.5 F H Pulse Rate 100 H 101 H 109 H Respiratory Rate 27 H 25 H 41 H Blood Pressure 137/64 123/53 L 142/112 H Pulse Oximetry 97 96 98 06/07/18 03:00 06/07/18 04:00 06/07/18 05:00 Temperature 101.3 F H 99.7 F H Pulse Rate 90 95 H 101 H Respiratory Rate 36 H 30 H 28 H Blood Pressure 128/62 127/58 L 123/59 L Pulse Oximetry 96 97 96 06/07/18 06:00 06/07/18 07:00 06/07/18 08:00 Temperature 98.8 F Pulse Rate 103 H 95 H 96 H Respiratory Rate 26 H 31 H 28 H Blood Pressure 125/60 120/56 L 135/63 Pulse Oximetry 96 95 96 06/07/18 09:00 06/07/18 10:00 06/07/18 11:00 Temperature Pulse Rate 95 H 94 H 99 H Respiratory Rate 30 H 31 H 31 H Blood Pressure 129/59 L 136/63 128/64 Pulse Oximetry 97 97 99 Intake & Output 06/06/18 06/07/18 06/07/18 18:59 06:59 18:59 Intake Total 2199 / 0 2207.5 / 2207.5 102.5 / 102.5 Output Total 2149 / 2149 1000 / 1000 Balance 50 / 50 1207.5 / 1207.5 102.5 / 102.5 Weight 133.1 kg Intake: IV 2079 / 0 1927.5 / 1927.5 102.5 / 102.5 LR 1000 mL Inj 1,000 ML @ 75 1000 / 1000 mls/hr IV.CONT .[id number] [facility] Rx# :[id number] NS Inj 1,000 ML @ 84 mls/hr IV. 850 / 850 CONT .[id number] [facility] Rx#:[id number] Sodium Chloride 23.4% Inj 188 450 / 450 MEQ In NS Inj 1,000 ML @ 20 mls /hr IV.CONT .Q24H [facility] Rx#: [id number] Ofirmev Inj 1,000 mg In 100 ml 200 / 200 @ 400 mls/hr IV.SIG Q8H [facility] Rx# :[id number] Gentamicin Inj 100 MG In NS Inj 102.5 / 102.5 102.5 / 102.5 100 ML @ 100 mls/hr IV.SIG Q8HR [facility] Rx#:[id number] Vancomycin Inj 2,000 MG In NS 520 / 520 520 / 520 Inj 500 ML @ 250 mls/hr IV.SIG Q18H [facility] Rx#:[id number] Keppra Inj 500 MG In NS Inj 100 210 / 210 105 / 105 ML @ 400 mls/hr IV.SIG Q12H [facility] Rx#:[id number] Tube Feeding 280 / 280 Other 120 / 120 Output: Urine Amount (Catheter) 2149 / 2149 1000 / 1000 Indwelling Urethral Catheter 2149 / 2149 1000 / 1000 Other: Date of Last Bowel Movement 06/02/18 06/02/18 06/02/18 # Bowel Movements 0 Narrative: Awake, dysarthric speech follows some simple commands Moves LEs 3 to 4-, UE 4/5 - Urinary Catheter Management Indwelling Urethral Catheter Cath placed during this visit: yes Reason for continuing: Hourly intake/output Insertion date: 06/03/18 Insertion time: 03:00 Assessment and Plan - Plan 68 year old male with brainstem hemorrhage Septicemia, Bacteremia, ?source cont nonoperative mgt of ICH, cont neuro checks in ISC every hour Dr. Hopkins deferring w/u for concern of spine infection to critical care or ID cont therapy
--- NOTE | 2018-06-07 13:50 | P.PNID ---
Subjective Remarks: Patient is a 68-year-old male, brought into the hospital initially at [facility] for evaluation of weakness and slurred speech. It apparently has been present for several days. He was found on the floor of his mobile home. At [facility] he was found to be febrile, WBC up to 21,000, urinalysis with pyuria, creatinine 2.33, and lactic acid was elevated. CT of the head showed focal hemorrhage in the posterior fossa. Patient was transferred to [facility] for neurosurgical evaluation. Patient since admission has had elevated temperature. His blood cultures done on admission are now reported as growing gram-positive cocci, MRSA. His urine culture is also growing MRSA. On evaluation in the intensive care unit, he is awake, and interactive. He looks slightly tachypneic at rest and and on nasal O2. He has some confusion but mostly his oriented. His chest x-ray is normal. Echo is showing calcification in the aortic valve. No vegetations seen. Infectious disease consultation has been requested to assist with evaluation and treatment of patient with MRSA bacteremia. Notes reviewed D/W RN Febrile Awake and answering, but speech difficult to understand - has very dry mouth CT A/P - no abscess Head MRA - no aneurysm All BC with MRSA, Vanco DARYL 1 - BC 06/03-06/06 Echo mild MR and AI; dense calcification of the AV Cardiology notes reviewed Last CXR - clear Creatinine a little higher - 1/4 from 1.3 On vanco and gentamicin Antibiotics: vanco Gentamicin Past Medical History: Diabetes History of MRSA infection Onset Date: ~06/03/18 Hypertension Obesity UTI (urinary tract infection) Allergies/Adverse Reactions: Allergies No Known Allergies Allergy (Verified 06/03/18 01:32) Objective Vital Signs 06/06/18 14:00 06/06/18 15:00 06/06/18 16:00 Temperature 99.6 F Pulse Rate 104 H 88 96 H Respiratory Rate 31 H 36 H 30 H Blood Pressure 171/79 H 125/69 165/77 H Pulse Oximetry 97 95 97 06/06/18 17:00 06/06/18 18:00 06/06/18 19:00 Temperature Pulse Rate 108 H 94 H 105 H Respiratory Rate 34 H 36 H 28 H Blood Pressure 161/70 H 146/68 H 169/80 H Pulse Oximetry 97 96 98 06/06/18 20:00 06/06/18 21:00 06/06/18 21:26 Temperature 102.5 F H Pulse Rate 109 H 96 H Respiratory Rate 27 H 26 H Blood Pressure 161/77 H 136/65 Pulse Oximetry 96 97 95 06/06/18 22:00 06/06/18 23:00 06/06/18 23:30 Temperature Pulse Rate 91 H 96 H 97 H Respiratory Rate 27 H 25 H 24 Blood Pressure 131/60 140/65 137/64 Pulse Oximetry 95 96 96 06/07/18 00:00 06/07/18 01:00 06/07/18 02:00 Temperature 101.5 F H Pulse Rate 100 H 101 H 109 H Respiratory Rate 27 H 25 H 41 H Blood Pressure 137/64 123/53 L 142/112 H Pulse Oximetry 97 96 98 06/07/18 03:00 06/07/18 04:00 06/07/18 05:00 Temperature 101.3 F H 99.7 F H Pulse Rate 90 95 H 101 H Respiratory Rate 36 H 30 H 28 H Blood Pressure 128/62 127/58 L 123/59 L Pulse Oximetry 96 97 96 06/07/18 06:00 06/07/18 07:00 06/07/18 08:00 Temperature 98.8 F Pulse Rate 103 H 95 H 96 H Respiratory Rate 26 H 31 H 28 H Blood Pressure 125/60 120/56 L 135/63 Pulse Oximetry 96 95 96 06/07/18 09:00 06/07/18 10:00 06/07/18 11:00 Temperature Pulse Rate 95 H 94 H 99 H Respiratory Rate 30 H 31 H 31 H Blood Pressure 129/59 L 136/63 128/64 Pulse Oximetry 97 97 99 Intake & Output 06/06/18 06/07/18 06/07/18 18:59 06:59 18:59 Intake Total 2200 / 2200 2207.5 / 2207.5 102.5 / 102.5 Output Total 2150 / 2150 1000 / 1000 Balance 50 / 50 1207.5 / 1207.5 102.5 / 102.5 Weight 133.1 kg Intake: IV 2079 / 2079 1927.5 / 1927.5 102.5 / 102.5 LR 1000 mL Inj 1,000 ML @ 75 1000 / 1000 mls/hr IV.CONT .[id number] [facility] Rx# :[id number] NS Inj 1,000 ML @ 84 mls/hr IV. 850 / 850 CONT .[id number] [facility] Rx#:[id number] Sodium Chloride 23.4% Inj 188 450 / 450 MEQ In NS Inj 1,000 ML @ 20 mls /hr IV.CONT .Q24H [facility] Rx#: [id number] Ofirmev Inj 1,000 mg In 100 ml 200 / 200 @ 400 mls/hr IV.SIG Q8H PRN Rx# :[id number] Gentamicin Inj 100 MG In NS Inj 102.5 / 102.5 102.5 / 102.5 100 ML @ 100 mls/hr IV.SIG Q8HR [facility] Rx#:[id number] Vancomycin Inj 2,000 MG In NS 520 / 520 520 / 520 Inj 500 ML @ 250 mls/hr IV.SIG Q18H [facility] Rx#:[id number] Keppra Inj 500 MG In NS Inj 100 210 / 210 105 / 105 ML @ 400 mls/hr IV.SIG Q12H [facility] Rx#:[id number] Tube Feeding 280 / 280 Other 120 / 120 Output: Urine Amount (Catheter) 2149 / 215 1000 / 1000 Indwelling Urethral Catheter 2149 / 2149 1000 / 1000 Other: Date of Last Bowel Movement 06/02/18 06/02/18 06/02/18 # Bowel Movements 0 06/05/18 04:07 Blood - Peripheral Aerobic Blood Culture - Final S. aureus MRSA 06/05/18 04:07 Blood - Peripheral Anaerobic Blood Culture - Final S. aureus MRSA 06/06/18 04:13 Blood - Peripheral Aerobic Blood Culture - Preliminary gram positive cocci 06/06/18 04:13 Blood - Peripheral Anaerobic Blood Culture - Preliminary No growth in 1 day 06/04/18 16:45 Blood - Peripheral Aerobic Blood Culture - Final S. aureus MRSA 06/04/18 16:45 Blood - Peripheral Anaerobic Blood Culture - Preliminary No growth in 3 days 06/04/18 16:45 Blood - Peripheral Aerobic Blood Culture - Final S. aureus MRSA 06/04/18 16:45 Blood - Peripheral Anaerobic Blood Culture - Preliminary No growth in 3 days 06/03/18 05:20 Blood - Peripheral Aerobic Blood Culture - Final S. aureus MRSA 06/03/18 05:20 Blood - Peripheral Anaerobic Blood Culture - Final S. aureus MRSA 06/03/18 07:27 Blood - Peripheral Aerobic Blood Culture - Final S. aureus MRSA 06/03/18 07:27 Blood - Peripheral Anaerobic Blood Culture - Final S. aureus MRSA 06/03/18 05:20 Catheterized Urine Urine Culture - Final S. aureus MRSA Lab - Hematology Results 06/07/18 05:04 WBC 12.3 H RBC 3.96 L Hgb 11.8 L Hct 35.0 L MCV 88.4 MCH 29.9 MCHC 33.8 RDW 16.6 Plt Count 183 D MPV 9.5 Neut % (Auto) 81.3 H Lymph % (Auto) 8.8 L [place] % (Auto) 9.5 H Eos % (Auto) 0.3 Baso % (Auto) 0.1 Neut # (Auto) 10.0 H Lymph # (Auto) 1.1 [place] # (Auto) 1.2 H Eos # (Auto) 0.0 Baso # (Auto) 0.0 WBC Differential . Differential Comment Auto diff final Lab - Chemistry Results 06/05/18 06/05/18 06/05/18 15:17 15:18 16:48 Sodium Potassium Chloride Carbon Dioxide Anion Gap BUN Creatinine Estimated GFR POC Glucose 161 H 192 H 148 H Random Glucose Calcium Calcium Adj for Albumin Total Bilirubin AST ALT Alkaline Phosphatase Total Protein Albumin 06/05/18 06/06/18 06/06/18 19:51 00:02 04:13 Sodium 161 H* Potassium 3.8 Chloride 132 H Carbon Dioxide 20.3 L Anion Gap 9 BUN 32 H Creatinine 1.32 H Estimated GFR 54 L POC Glucose 130 H 153 H Random Glucose 144 H Calcium 7.4 L* Calcium Adj for Albumin 7.9 L Total Bilirubin 1.1 H AST 67 H ALT 46 Alkaline Phosphatase 52 Total Protein 6.1 L Albumin 1.8 L 06/06/18 06/06/18 06/06/18 10:11 12:16 17:53 Sodium Potassium Chloride Carbon Dioxide Anion Gap BUN Creatinine Estimated GFR POC Glucose 185 H 134 H 152 H Random Glucose Calcium Calcium Adj for Albumin Total Bilirubin AST ALT Alkaline Phosphatase Total Protein Albumin 06/06/18 06/07/18 06/07/18 20:01 01:15 04:48 Sodium Potassium Chloride Carbon Dioxide Anion Gap BUN Creatinine Estimated GFR POC Glucose 168 H 138 H 144 H Random Glucose Calcium Calcium Adj for Albumin Total Bilirubin AST ALT Alkaline Phosphatase Total Protein Albumin 06/07/18 06/07/18 06/07/18 05:04 08:24 13:23 Sodium Potassium Chloride Carbon Dioxide Anion Gap BUN Creatinine 1.47 H Estimated GFR 47 L POC Glucose 181 H 168 H Random Glucose Calcium Calcium Adj for Albumin Total Bilirubin AST ALT Alkaline Phosphatase Total Protein Albumin Imaging: ITS Impressions Abdomen/Bladder Ultrasound 06/03/18 00:00 CONCLUSION: 1. Bilateral simple cysts within the kidneys as above. 2. No findings to indicate renal obstruction. 3. Renal cortex appears of adequate thickness. Chest X-Ray 06/03/18 13:53 CONCLUSION: Negative examination. Abdomen/Pelvis CT 06/04/18 00:00 CONCLUSION: 1. The second and third portions of the duodenum appear mildly prominent and indistinct with mild surrounding inflammatory change extending into the adjacent mesentery. The findings are concerning for duodenitis. 2. Bilateral renal cysts. 3. Minimal pleural effusions and atelectasis in the lung bases. 4. The gallbladder is unremarkable. Head MRI 06/04/18 00:00 CONCLUSION: 1. There is a focal stable area of subacute hemorrhage adjacent to the posterior right midbrain measuring approximately 1.5 cm in length. This is not significantly changed in its overall appearance compared to the recent CT scan of the brain. No definite new areas of hemorrhage are demonstrated. 2. Stable diffuse bilateral cortical atrophy. Head MRA 06/04/18 00:00 CONCLUSION: 1. Atherosclerotic changes involving the left M2 segment. 2. No aneurysm or vascular abnormality identified. 3. Visualization of the known blood products along the right side of the brainstem. Neck MRA 06/04/18 00:00 CONCLUSION: 1. Unremarkable MRA of the carotids. Percent stenosis is calculated using the diameter of the stenotic region over the diameter of the normal distal internal carotid artery Abdomen X-Ray 06/05/18 00:00 CONCLUSION: Feeding tube distal tip is in the gastric body. Head CT 06/06/18 00:00 CONCLUSION: 1. Slight interval improvement of the focal area of hemorrhage within the right basilar cistern which measures 1.9 x 0.8 cm. 2. Diffuse cerebral atrophy is stable. 3. Mild periventricular white matter small vessel ischemic changes are noted. . Knee X-Ray 06/06/18 00:00 CONCLUSION: 1. Moderate suprapatellar effusion. 2. Prominent degenerative osteoarthritis. Physical Exam: GENERAL: Patient is an obese, well-developed male, awake and alert, not in respiratory distress. SKIN: Warm and dry. No generalized rash, no ecchymoses and no evidence of embolic lesions. HEAD: Atraumatic. Normocephalic. No temporal wasting, or tenderness. EYES: [place] conjunctiva. No petechia or hemorrhage. Pupils equal, round and reactive to light. Extraocular movements full and intact. No scleral icterus. No injection or drainage. EARS, NOSE AND THROAT: Nose without bleeding or purulent nasal discharge. Very dry oral mucosa, with dried secretions NECK: Trachea midline. Supple and not tender, no meningeal signs CARDIOVASCULAR: Regular rate and rhythm. No murmurs, rubs or gallops heard RESPIRATORY: Clear to auscultation. Breath sounds equal bilaterally. No rales , wheezing or rhonchi ABDOMEN: Soft, obese, non-tender, nondistended. Bowel sounds present and normoactive. No guarding. No rebound. No organomegaly. EXTREMITIES: No clubbing, cyanosis, or edema. No calf tenderness. NEUROLOGICAL: Awake and alert. Full EOM, no facial asymmetry, tongue midline, grossly normal CN. Motor grossly within normal limits. PSYCHIATRIC: calm and cooperative. LINE: No evidence of infection : [place] in place, with sediment Assessment and Plan - Plan Impression MRSA sepsis on presentation, worrisome for IE - MRSA not a common pathogen - so far no obvious source for the MRSA, and very likely endovascular UTI Hemorrhage posterior fossa - no aneurysm: MRA negative for mycotic aneurism Hx DM, HTN, Obesity Renal insufficiency Fevers, persistent Recommendation Repeat blood culture to document clearing Continue Vanco: push levels to 20 Also on Genta - follow creatinine If creatinine continues to rise, stop Genta Consider switching to Cubicin if BC remains (+) Repeat UA Follow temps Monitor progress When more stable per cardiology - will ask to do LAURIE D/W RN
--- NOTE | 2018-06-07 14:15 | P.PNCA ---
Subjective Interval history: alert, restrained, in nad Medications and Allergies Active Medications: Active Medications Acetaminophen (Tylenol) 650 mg PO Q6H PRN PRN Reason: PAIN 1-10 AND/OR FEVER >101F Last Admin: 06/06/18 12:05 Dose: 650 mg Al Hydroxide/Mg Hydroxide (Milk Of Jermain Liq) 30 ml PO Q12H PRN PRN Reason: Mild Constipation Albuterol (Duoneb Neb (Prn)) 1 ampul NEB Q2HR NEB PRN PRN Reason: WHEEZING Last Admin: 06/03/18 19:44 Dose: 1 ampul Amlodipine Besylate (Norvasc) 10 mg PO DAILY [facility] Last Admin: 06/07/18 08:05 Dose: 10 mg Bisacodyl (Dulcolax Supp) 10 mg RECTAL DAILY PRN PRN Reason: SEVERE CONSITIPATION Chlorhexidine Gluconate (Chlorhexidine 2% Cloth) 3 pack TOPICAL DAILY@0400 [facility] Stop: 06/08/18 03:59 Last Admin: 06/07/18 04:27 Dose: 3 pack Chlorhexidine Gluconate (Chlorhexidine 2% Cloth) 3 pack TOPICAL DAILY@0400 PRN PRN Reason: Extra cloth needed Stop: 06/08/18 03:59 Clonidine HCl (Catapres) 0.1 mg PO Q6H PRN PRN Reason: SBP>160, DBP>90 Clonidine HCl (Catapress-Tts 0.1 Mg Patch.7d) 1 patch T-DERMAL Q7D [facility] Last Admin: 06/03/18 16:17 Dose: 1 patch Dextrose (D50w Vial) 50 ml IV.PUSH UNSCH PRN PRN Reason: PER HYPOGLYCEMIA PROTOCOL Famotidine (Pepcid Pf Inj) 20 mg IV.PUSH Q12HR [facility] Last Admin: 06/07/18 08:08 Dose: 20 mg Glucagon (Glucagon Inj) 1 mg OTHER PRN PRN PRN Reason: for Hypoglycemia Protocol Hydralazine HCl (Apresoline) 50 mg PO BID [facility] Last Admin: 06/07/18 08:06 Dose: 50 mg Levetiracetam 500 mg/ Sodium (Chloride) 105 mls @ 400 mls/hr IV.SIG Q12H [facility] Last Infusion: 06/07/18 05:34 Dose: Infused Magnesium Sulfate 4 gm/ Sodium (Chloride) 100 mls @ 50 mls/hr IV.SIG UNSCH PRN PRN Reason: For Magnesium 0.9 - 1.1 mg/dL Potassium Chloride (Kcl 40 Meq Premix Inj) 40 meq in 100 mls @ 25 mls/hr IV.SIG Q2H PRN PRN Reason: For Potassium 2.8 - 3.2 mEq/L Potassium Chloride (Kcl 20 Meq Premix Inj) 20 meq in 100 mls @ 50 mls/hr IV.SIG Q2H PRN PRN Reason: For Potassium 3.3 - 3.5 mEq/L Last Infusion: 06/05/18 00:45 Dose: Infused Potassium Chloride (Kcl 40 Meq Premix Inj) 40 meq in 100 mls @ 25 mls/hr IV.SIG UNSCH PRN PRN Reason: For Potassium 3.3 - 3.5 mEq/L Potassium Chloride (Kcl 20 Meq Premix Inj) 20 meq in 100 mls @ 50 mls/hr IV.SIG Q2H PRN PRN Reason: For Potassium 2.8 - 3.2 mEq/L Potassium Phosphate 30 mmol/ (Sodium Chloride) 260 mls @ 42 mls/hr IV.SIG UNSCH PRN PRN Reason: SEE LABEL COMMENTS Magnesium Sulfate 2 gm/ Sodium (Chloride) 100 mls @ 50 mls/hr IV.SIG UNSCH PRN PRN Reason: For Magnesium 1.2 - 1.6 mg/dL Sodium Phosphate 30 mmol/ (Sodium Chloride) 260 mls @ 42 mls/hr IV.SIG UNSCH PRN PRN Reason: For Phosphorus < 2.5 mg/dL Dexmedetomidine HCl 200 mcg/ (Sodium Chloride) 50 mls @ 6.65 mls/hr IV.CONT TITRATE PRN; Protocol PRN Reason: Per Protocol Last Titration: 06/06/18 08:30 Dose: 0 mcg/kg/hr, 0 mls/hr Acetaminophen (Ofirmev Inj) 1,000 mg in 100 mls @ 400 mls/hr IV.SIG Q8H PRN PRN Reason: FEVER > 101 F Last Infusion: 06/07/18 04:53 Dose: Infused Vancomycin HCl 2,000 mg/ (Sodium Chloride) 520 mls @ 250 mls/hr IV.SIG Q18H [facility] Last Admin: 06/07/18 13:18 Dose: 250 mls/hr Lactated Ringer's (Lr 1000 Ml Inj) 1,000 mls @ 75 mls/hr IV.CONT .[id number] [facility] Last Admin: 06/07/18 04:27 Dose: 75 mls/hr Pharmacy Profile Note (Gentamicin Consult Pharmacy) 0 mls @ 0 mls/hr OTHER UNSCH [facility] Gentamicin Sulfate 100 mg/ (Sodium Chloride) 102.5 mls @ 100 mls/hr IV.SIG Q8HR [facility] Last Infusion: 06/07/18 07:00 Dose: Infused Insulin Human Regular (Novolin R Correctional Sugar Inj) 0 units SQ Q4HR [facility]; Protocol Last Admin: 06/07/18 13:36 Dose: 1 units Labetalol HCl (Trandate Inj) 10 mg IV.PUSH Q2H PRN PRN Reason: BP > 140/90 Last Admin: 06/07/18 02:07 Dose: 10 mg Lactulose (Lactulose Liq) 30 ml PO DAILY PRN PRN Reason: SEVERE CONSITIPATION Magnesium Oxide (Mag-Ox) 800 mg PO UNSCH PRN PRN Reason: For Magnesium 1.2 - 1.6 mg/dL Metoprolol Tartrate (Lopressor) 25 mg PO BID [facility] Last Admin: 06/07/18 08:05 Dose: 25 mg Miscellaneous Information ([facility] Ordered Lab Info) 0 each OTHER ONCE ONE Stop: 06/10/18 10:46 Mupirocin (Bactroban 2% Nasal Oint) 1 applicatio EACH NARE BID [facility] Stop: 06/10/18 09:01 Last Admin: 06/07/18 08:06 Dose: 1 applicatio Patch Removal (Remove Old Patch) 1 each T-DERMAL Q7D [facility] Pharmacy Profile Note (Vancomycin Consult Pharmacy) 1 each OTHER UNSCH PRN PRN Reason: Pharmacy to dose Potassium Bicarb/Potassium Chloride (K-Lyte Cl Eff) 50 meq PO UNSCH PRN PRN Reason: For Potassium 3.3 - 3.5 mEq/L Potassium Phosphate (K-Phos Original) 2,000 mg PO Q4H PRN PRN Reason: Phosphorus Less Than 2.5 mg/dL Potassium Phosphate (K-Phos Original) 2,000 mg PO UNSCH PRN PRN Reason: SEE LABEL COMMENTS Senna/Docusate Sodium (Shasha-Colace) 1 tab PO BID [facility] Last Admin: 06/07/18 08:06 Dose: 1 tab Sennosides (Senokot) 17.2 mg PO Q12H PRN PRN Reason: Moderate Constipation Sodium Chloride (Ns Flush) 2 ml IV.FLUSH BID [facility] Last Admin: 06/07/18 08:06 Dose: 2 ml Sodium Chloride (Ns Flush) 2 ml IV.FLUSH PRN PRN PRN Reason: FLUSH AFTER USING IV ACCESS Allergies Allergy/AdvReac Type Severity Reaction Status Date / Time No Known Allergies Allergy Verified 06/03/18 01:32 Physical Exam Vital signs: Vital Signs 06/06/18 15:00 06/06/18 16:00 06/06/18 17:00 Temperature 99.6 F Pulse Rate 88 96 H 108 H Respiratory Rate 36 H 30 H 34 H Blood Pressure 125/69 165/77 H 161/70 H Pulse Oximetry 95 97 97 06/06/18 18:00 06/06/18 19:00 06/06/18 20:00 Temperature 102.5 F H Pulse Rate 94 H 105 H 109 H Respiratory Rate 36 H 28 H 27 H Blood Pressure 146/68 H 169/80 H 161/77 H Pulse Oximetry 96 98 96 06/06/18 21:00 06/06/18 21:26 06/06/18 22:00 Temperature Pulse Rate 96 H 91 H Respiratory Rate 26 H 27 H Blood Pressure 136/65 131/60 Pulse Oximetry 97 95 95 06/06/18 23:00 06/06/18 23:30 06/07/18 00:00 Temperature 101.5 F H Pulse Rate 96 H 97 H 100 H Respiratory Rate 25 H 24 27 H Blood Pressure 140/65 137/64 137/64 Pulse Oximetry 96 96 97 06/07/18 01:00 06/07/18 02:00 06/07/18 03:00 Temperature Pulse Rate 101 H 109 H 90 Respiratory Rate 25 H 41 H 36 H Blood Pressure 123/53 L 142/112 H 128/62 Pulse Oximetry 96 98 96 06/07/18 04:00 06/07/18 05:00 06/07/18 06:00 Temperature 101.3 F H 99.7 F H Pulse Rate 95 H 101 H 103 H Respiratory Rate 30 H 28 H 26 H Blood Pressure 127/58 L 123/59 L 125/60 Pulse Oximetry 97 96 96 06/07/18 07:00 06/07/18 08:00 06/07/18 09:00 Temperature 98.8 F Pulse Rate 95 H 96 H 95 H Respiratory Rate 31 H 28 H 30 H Blood Pressure 120/56 L 135/63 129/59 L Pulse Oximetry 95 96 97 06/07/18 10:00 06/07/18 11:00 Temperature Pulse Rate 94 H 99 H Respiratory Rate 31 H 31 H Blood Pressure 136/63 128/64 Pulse Oximetry 97 99 Intake & Output 06/06/18 06/07/18 06/07/18 18:59 06:59 18:59 Intake Total 2200 / 2200 2207.5 / 2207.5 102.5 / 102.5 Output Total 2149 / 2149 1000 / 1000 Balance 50 / 50 1207.5 / 1207.5 102.5 / 102.5 Weight 133.1 kg Intake: IV 2079 / 0 1927.5 / 1927.5 102.5 / 102.5 LR 1000 mL Inj 1,000 ML @ 75 1000 / 1000 mls/hr IV.CONT .[id number] [facility] Rx# :[id number] NS Inj 1,000 ML @ 84 mls/hr IV. 850 / 850 CONT .[id number] [facility] Rx#:[id number] Sodium Chloride 23.4% Inj 188 450 / 450 MEQ In NS Inj 1,000 ML @ 20 mls /hr IV.CONT .Q24H [facility] Rx#: [id number] Ofirmev Inj 1,000 mg In 100 ml 200 / 200 @ 400 mls/hr IV.SIG Q8H PRN Rx# :[id number] Gentamicin Inj 100 MG In NS Inj 102.5 / 102.5 102.5 / 102.5 100 ML @ 100 mls/hr IV.SIG Q8HR [facility] Rx#:[id number] Vancomycin Inj 2,000 MG In NS 520 / 520 520 / 520 Inj 500 ML @ 250 mls/hr IV.SIG Q18H [facility] Rx#:[id number] Keppra Inj 500 MG In NS Inj 100 210 / 210 105 / 105 ML @ 400 mls/hr IV.SIG Q12H [facility] Rx#:[id number] Tube Feeding 280 / 280 Other 120 / 120 Output: Urine Amount (Catheter) 2149 / 2149 1000 / 1000 Indwelling Urethral Catheter 2149 1000 / 1000 Other: Date of Last Bowel Movement 06/02/18 06/02/18 06/02/18 # Bowel Movements 0 - Constitutional no acute distress - Routine HEENT Exam Head: Present: normocephalic - Routine Neck Exam Present: supple - Routine Respiratory Exam Present: CTA bilaterally - Routine Cardiovascular Exam Present: S1, S2 - Routine Abdominal Exam Present: soft - Routine Extremities Exam Comments: no sourav - Urinary Catheter Management Indwelling Urethral Catheter Cath placed during this visit: yes Reason for continuing: Hourly intake/output Insertion date: 06/03/18 Insertion time: 03:00 Results 06/07/18 05:04 06/07/18 05:04 Cardiac Enzymes 06/06/18 Range/Units 04:13 AST 67 H (15-37) U/L CBC 06/07/18 Range/Units 05:04 WBC 12.3 H (4.0-11.0) th/mm3 RBC 3.96 L (4.50-5.90) mil/mm3 Hgb 11.8 L (13.0-17.0) gm/dL Hct 35.0 L (39.0-51.0) % Plt Count 183 D (150-450) th/mm3 Neut # (Auto) 10.0 H (1.8-7.7) th/mm3 Lymph # (Auto) 1.1 (1.0-4.8) th/mm3 [place] # (Auto) 1.2 H (0.0-0.9) th/mm3 Eos # (Auto) 0.0 (0.0-0.4) th/mm3 Baso # (Auto) 0.0 (0.0-0.2) th/mm3 Comprehensive Metabolic Panel 06/06/18 06/07/18 Range/Units 04:13 05:04 Sodium 161 H* (136-145) meq/L Potassium 3.8 (3.5-5.1) meq/L Chloride 132 H (98-107) meq/L Carbon Dioxide 20.3 L (21.0-32.0) meq/L BUN 32 H (7-18) mg/dL Creatinine 1.32 H 1.47 H (0.60-1.30) mg/dL Calcium 7.4 L* (8.5-10.1) mg/dL AST 67 H (15-37) U/L ALT 46 (12-78) U/L Alkaline Phosphatase 52 (45-117) U/L Total Protein 6.1 L (6.4-8.2) g/dL Albumin 1.8 L (3.4-5.0) g/dL Intake and Output 06/06/18 06/07/18 06/07/18 22:59 06:59 14:59 Intake Total 845 / 845 1587.5 / 1587.5 102.5 / 102.5 Output Total 2150 / 2150 1000 / 1000 Balance -1305 / -1305 587.5 / 587.5 102.5 / 102.5 Intake: IV 725 / 725 1307.5 / 1307.5 102.5 / 102.5 LR 1000 mL Inj 1,000 ML @ 75 1000 / 1000 mls/hr IV.CONT .[id number] [facility] Rx# :[id number] Ofirmev Inj 1,000 mg In 100 ml 100 / 100 100 / 100 @ 400 mls/hr IV.SIG Q8H PRN Rx# :[id number] Gentamicin Inj 100 MG In NS Inj 102.5 / 102.5 102.5 / 102.5 100 ML @ 100 mls/hr IV.SIG Q8HR [facility] Rx#:[id number] Vancomycin Inj 2,000 MG In NS 520 / 520 Inj 500 ML @ 250 mls/hr IV.SIG Q18H [facility] Rx#:[id number] Keppra Inj 500 MG In NS Inj 100 105 / 105 105 / 105 ML @ 400 mls/hr IV.SIG Q12H [facility] Rx#:[id number] Tube Feeding 280 / 280 Other 120 / 120 Output: Urine Amount (Catheter) 2150 / 2150 1000 / 1000 Indwelling Urethral Catheter 2150 / 2150 1000 / 1000 Other: Date of Last Bowel Movement 06/02/18 06/02/18 06/02/18 # Bowel Movements 0 Weight 133.1 kg - Imaging and Cardiology Imaging: Impressions Abdomen X-Ray 06/05/18 00:00 CONCLUSION: 1. No enteric catheters are demonstrated. Abdomen X-Ray 06/05/18 00:00 CONCLUSION: Feeding tube distal tip is in the gastric body. Head CT 06/06/18 00:00 CONCLUSION: 1. Slight interval improvement of the focal area of hemorrhage within the right basilar cistern which measures 1.9 x 0.8 cm. 2. Diffuse cerebral atrophy is stable. 3. Mild periventricular white matter small vessel ischemic changes are noted. . Knee X-Ray 06/06/18 00:00 CONCLUSION: 1. Moderate suprapatellar effusion. 2. Prominent degenerative osteoarthritis. 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 Status: Acute (4) Encephalopathy acute Code(s): G93.40 - Encephalopathy, unspecified Status: Acute (5) Acute kidney failure Code(s): N17.9 - Acute kidney failure, unspecified Status: Acute (6) Diabetes Code(s): E11.9 - Type 2 diabetes mellitus without complications Status: Chronic (7) Hypertension Code(s): I10 - Essential (primary) hypertension Status: Chronic (8) Obesity Code(s): E66.9 - Obesity, unspecified Status: Chronic (9) Severe sepsis Code(s): A41.9 - Sepsis, unspecified organism; R65.20 - Severe sepsis without septic shock Status: Acute - Plan 1.) Bacteremia - consider mohsen if/when ich resolves, patient is consentable and hypernatremia resolves (3) Brain stem hemorrhage Qualifiers: Intracerebral hemorrhage etiology: nontraumatic
[2018-06-07 18:43] LABS: Alanine Aminotransferase 42 U/L (12-78); Albumin 1.9 g/dL (3.4-5.0); Alkaline Phosphatase 56 U/L (45-117); Anion Gap 6 meq/L (5-15); Aspartate Aminotransferase 74 U/L (15-37); Blood Urea Nitrogen 42 mg/dL (7-18); Calcium 8.5 mg/dL (8.5-10.1); Carbon Dioxide 20.2 meq/L (21.0-32.0); Chloride 137 meq/L (98-107); Gentamicin,Trough 2.1 mcg/mL (0.0-2.0); Glomerular Filtration Rate 42 mL/min (>89); Glucose,Random 149 mg/dL (74-106); Potassium 4.2 meq/L (3.5-5.1); Total Protein 6.6 g/dL (6.4-8.2)
[2018-06-07 18:53] LABS: Sodium 163 meq/L (136-145)
[2018-06-07 19:25] LABS: Amorphous Sediment,Urine Few /hpf; Bacteria,Urine Many /hpf; Bilirubin,Urine Negative (Negative); Clarity,Urine Turbid (Clear); Color,Urine Amber (Yellw/Straw); Glucose,Urine (UA) 50 mg/dL (Negative); Leukocyte Esterase,Urine Small (Negative); Mucus,Urine Moderate /lpf (Occasional); Nitrite,Urine Negative (Negative); Specific Gravity,Urine 1.024 (1.002-1.035); Squamous Epithelial Cell,Urine 1 /hpf (0-5)
[2018-06-07] MEDS: Dextrose 5% in Water Inj 1,000 ML IV.CONT SCH (19:30)
[2018-06-08] MEDS: Insulin NovoLIN Regular Correctional Sugar Inj SQ SCH ×6 (01:35→20:49)
[2018-06-08] MEDS ORDERED: Gentamicin Inj 100 MG in Sodium Chlor 0.9% Inj 100 ML IV.SIG SCH (02:00)
[2018-06-08] MEDS: Vancomycin Inj 2,000 MG in Sodium Chlor 0.9% Inj 500 ML IV.SIG SCH (04:23)
[2018-06-08 06:09] LABS: ABG Base Excess -3.8 mmol/L (-2-2); ABG PCO2 34 mmHg (38-42); ABG PO2 72 mmHg (61-120)
[2018-06-08 06:53] LABS: Baso # (Auto) 0.1 th/mm3 (0.0-0.2); Baso % (Auto) 0.5 % (0.0-2.0); Eos # (Auto) 0.1 th/mm3 (0.0-0.4); Eos % (Auto) 0.9 % (0.0-4.0); Hematocrit 34.8 % (39.0-51.0); Hemoglobin 11.4 gm/dL (13.0-17.0); Lymph # (Auto) 1.8 th/mm3 (1.0-4.8); Lymph % (Auto) 11.8 % (9.0-44.0); Mean Corpuscular HGB Conc 32.8 % (32.0-36.0); Mean Corpuscular Hemoglobin 29.4 pg (27.0-34.0); Mean Corpuscular Volume 89.7 fL (80.0-100.0); Mean Platelet Volume 9.9 fL (7.0-11.0); Mono # (Auto) 1.5 th/mm3 (0.0-0.9); Mono % (Auto) 9.7 % (0.0-8.0); Neut # (Auto) 11.9 th/mm3 (1.8-7.7); Neut % (Auto) 77.1 % (16.0-70.0); Platelet Count 219 th/mm3 (150-450); Red Blood Count 3.88 mil/mm3 (4.50-5.90); Red Cell Distribution Width 17.2 % (11.6-17.2); White Blood Count 15.4 th/mm3 (4.0-11.0)
[2018-06-08 07:20] LABS: Anion Gap 7 meq/L (5-15); Blood Urea Nitrogen 69 mg/dL (7-18); Calcium 8.2 mg/dL (8.5-10.1); Chloride 134 meq/L (98-107); Glomerular Filtration Rate 22 mL/min (>89); Glucose,Random 190 mg/dL (74-106); Potassium 4.7 meq/L (3.5-5.1)
[2018-06-08 08:03] LABS: Sodium 163 meq/L (136-145)
[2018-06-08] MEDS: Senna/Docusate Sodium 8.6/50 MG Tablet PO SCH ×2 (08:26→20:18)
[2018-06-08] MEDS: amLODIPine 10 MG Tablet PO SCH (08:26)
[2018-06-08] MEDS: Metoprolol Tartrate 25 MG Tablet PO SCH ×2 (08:26→20:19)
[2018-06-08] MEDS: hydrALAZINE 50 MG Tablet PO SCH (08:26)
[2018-06-08] MEDS: Mupirocin 2% Nasal Oint Topical Syringe EACH NARE SCH ×2 (08:27→20:18)
[2018-06-08] MEDS: Famotidine PF Inj 20 MG/2 ML Vial IV.PUSH SCH ×2 (08:28→20:17)
[2018-06-08] MEDS ORDERED: Dextrose 5% in Water Inj 1,000 ML IV.SIG SCH (09:45)
[2018-06-08] MEDS: Dextrose 5% in Water Inj 1,000 ML IV.CONT SCH (10:10)
[2018-06-08] MEDS ORDERED: fentaNYL Citrate Inj 250 MCG/5 ML Ampul IV.PUSH STA (10:32)
--- NOTE | 2018-06-08 10:32 | P.PNCC ---
Subjective Subjective Remarks/Hospital Course: 06/03: Patient is a 68-year-old male with past medical history significant for type 2 diabetes, hypertension, morbid obesity who presented to the [facility] emergency department with weakness and slurred speech. Symptoms present for 2 days, apparently he was found on the floor of his mobile home. He was noted to have high fever at the [facility] his WBC count was 21.3 UA was positive. His sodium was 134 BUN 50 with a creatinine of 2.33 bicarb was 16 lactic acid was 6.8. CPK more than 3000 at the outside hospital. A CT of the head showed focal hemorrhage into the right quadrigeminal plate cistern. Dr. Hopkins was contacted who accepted the patient and requested admission to critical care. Patient was accepted to [facility] at [place] Dr. Deluca evaluated the patient in the [facility], he is lying in the bed. Slightly tachypneic moderate distress. Patient is oriented to place and person. CT of the head repeated here at [place] showed hemorrhage along the posterior aspect of the brainstem measuring up to 2.8 cm in maximal diameter. Mild mass effect on the brainstem. No hydrocephalus. I have started the patient on Cardene infusion for tight blood pressure control. Zosyn for UTI. 2% saline will be started to keep sodium above 150. Avoid mannitol due to renal failure. Keppra for seizure prophylaxis. I am unable to find coags but platelet count was normal. 06/04: MRSA bacteremia ob blood cultures drawn on admission. Currently on precedex, on room air. Awake, follows commands, speech, unintelligible. Started on IV vanc. ID consulted as concern for septic emboli/ endocarditis as cause for brainstem bleed. 06/05: 48 hours following a mid brain spontaneous hemorrhage complicated by numerous MRSA blood cultures. Blood pressure acceptably well controlled. Fever pattern persists. Patient tolerating extubation and protecting airway adequately. Taper completely off Precedex. Serum osmolality acceptably concentrated. 06/06: Serum osmolality acceptable, will allow sodium to drift back into the lower 150s now. Patient is alert and interactive. He moves 4 limbs spontaneously. Episodic fevers to 102+. We will continue with infectious disease workup for source of bacteremia. Endocarditis remains high on the list of possibilities. 06/07: Awake, alert, following commands. Speech very slurred however responds appropriately. Slight disorientation. Thought he was in [place]. Knows he is in the hospital. Complains of back pain. 06/08: Drowsy, arousable, tachypneic. Sodium up to 163, started on D5W and free water. Creatinine up. Tolerating tube feeds. Awaiting MRI. Will need LAURIE. Will need intubation probably for airway and in order to transport for MRI and LAURIE. Objective Vital Signs / I&O: Vital Signs 06/07/18 11:00 06/07/18 12:00 06/07/18 13:00 Temperature 98.8 F Pulse Rate 99 H 95 H 97 H Respiratory Rate 31 H 31 H 35 H Blood Pressure 128/64 127/59 L 121/56 L Pulse Oximetry 99 99 97 06/07/18 14:00 06/07/18 15:00 06/07/18 16:00 Temperature 98.8 F Pulse Rate 98 H 80 83 Respiratory Rate 39 H 30 H 38 H Blood Pressure 117/57 L 90/52 L 121/59 L Pulse Oximetry 98 97 100 06/07/18 17:00 06/07/18 18:00 06/07/18 19:00 Temperature Pulse Rate 100 H 99 H 103 H Respiratory Rate 39 H 35 H 35 H Blood Pressure 116/56 L 116/56 L 118/57 L Pulse Oximetry 97 95 96 06/07/18 19:30 06/07/18 20:00 06/07/18 20:30 Temperature 103.0 F H Pulse Rate 104 H 102 H 105 H Respiratory Rate 39 H 36 H 32 H Blood Pressure 129/62 115/57 L 113/60 Pulse Oximetry 95 96 94 L 06/07/18 20:57 06/07/18 21:00 06/07/18 21:30 Temperature Pulse Rate 102 H 106 H Respiratory Rate 40 H 41 H Blood Pressure 116/59 L 119/58 L Pulse Oximetry 94 L 94 L 93 L 06/07/18 22:00 06/07/18 22:30 06/07/18 23:00 Temperature Pulse Rate 106 H 100 H 96 H Respiratory Rate 41 H 40 H 39 H Blood Pressure 108/55 L 109/57 L 108/56 L Pulse Oximetry 93 L 93 L 93 L 06/07/18 23:30 06/08/18 00:00 06/08/18 00:30 Temperature 100.7 F H Pulse Rate 96 H 90 93 H Respiratory Rate 38 H 36 H 38 H Blood Pressure 107/58 L 104/58 L 110/59 L Pulse Oximetry 93 L 94 L 94 L 06/08/18 01:00 06/08/18 01:30 06/08/18 02:00 Temperature 100.1 F H Pulse Rate 85 89 97 H Respiratory Rate 38 H 32 H 36 H Blood Pressure 112/55 L 118/56 L 122/60 Pulse Oximetry 95 97 97 06/08/18 02:30 06/08/18 03:00 06/08/18 03:30 Temperature Pulse Rate 98 H 100 H 103 H Respiratory Rate 38 H 39 H 36 H Blood Pressure 126/60 126/59 L 126/62 Pulse Oximetry 95 94 L 94 L 06/08/18 04:00 06/08/18 04:30 06/08/18 05:00 Temperature 101.5 F H Pulse Rate 99 H 100 H 101 H Respiratory Rate 34 H 36 H 39 H Blood Pressure 112/58 L 115/58 L 117/58 L Pulse Oximetry 94 L 94 L 93 L 06/08/18 05:30 06/08/18 06:00 Temperature 100.7 F H Pulse Rate 97 H 96 H Respiratory Rate 38 H 38 H Blood Pressure 116/57 L 120/60 Pulse Oximetry 94 L 94 L Intake & Output 06/07/18 06/08/18 06/08/18 18:59 06:59 18:59 Intake Total 2128.0 / 2128.0 2435.5 / 2435.5 1780 / 1780 Output Total 700 / 700 400 / 400 Balance 1428.0 / 1428.0 2035.5 / 2035.5 1780 / 1780 Weight 132.4 kg Intake: IV 1430.0 / 1430.0 1407.5 / 1407.5 1780 / 1780 D5W Inj 1,000 ML @ 75 mls/hr IV 1000 / 1000 .CONT .[id number] [facility] Rx#:[id number] LR 1000 mL Inj 1,000 ML @ 75 600 / 600 1000 / 1000 260 / 260 mls/hr IV.CONT .[id number] [facility] Rx# :[id number] Ofirmev Inj 1,000 mg In 100 ml 200 / 200 @ 400 mls/hr IV.SIG Q8H PRN Rx# :[id number] Gentamicin Inj 100 MG In NS Inj 205.0 / 205.0 102.5 / 102.5 100 ML @ 100 mls/hr IV.SIG Q12H [facility] Rx#:[id number] Vancomycin Inj 2,000 MG In NS 520 / 520 Inj 500 ML @ 250 mls/hr IV.SIG Q18H [facility] Rx#:[id number] Keppra Inj 500 MG In NS Inj 100 105 / 105 105 / 105 ML @ 400 mls/hr IV.SIG Q12H [facility] Rx#:[id number] Tube Feeding 608 / 608 528 / 528 Water Bolus Amount 500 / 500 Other 90 / 90 Output: Urine Amount (Catheter) 700 / 700 400 / 400 Indwelling Urethral Catheter 700 / 700 400 / 400 Other: Date of Last Bowel Movement 06/02/18 06/02/18 # Bowel Movements 0 Result Diagrams: 06/08/18 05:54 06/08/18 05:54 Objective Remarks: GENERAL: 68-year-old male lying in ICU bed , tachypneic, encephalopathic SKIN: Focused skin assessment warm/dry. HEAD: Atraumatic. Normocephalic. EYES: Pupils equal and round. No scleral icterus. No injection or drainage. ENT: No nasal bleeding or discharge. Oral cavity dry. Trachea midline. CARDIOVASCULAR: Normal S1-S2. No murmurs. Regular rate and rhythm. No venous distention. RESPIRATORY: tachypneic but good bilateral air entry, few rhonchi, no adventitious sounds GASTROINTESTINAL: Abdomen soft, non-tender, nondistended. BS present. No guarding. MUSCULOSKELETAL: Warm, well perfused. NEUROLOGICAL: Encephalopathic, Pupils equal 3mm, reactive, nonverbal today, not responding to commands for me, generalized weakness. Assessment and Plan - Problem List (1) 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 Status: Acute (2) Encephalopathy acute Code(s): G93.40 - Encephalopathy, unspecified Status: Acute (3) Acute kidney failure Code(s): N17.9 - Acute kidney failure, unspecified Status: Acute (4) Severe sepsis Code(s): A41.9 - Sepsis, unspecified organism; R65.20 - Severe sepsis without septic shock Status: Acute (5) Metabolic acidemia Code(s): E87.2 - Acidosis Status: Acute (6) UTI (urinary tract infection) Code(s): N39.0 - Urinary tract infection, site not specified Status: Acute (7) Lactic acidosis Code(s): E87.2 - Acidosis Status: Acute (8) Rhabdomyolysis Code(s): M62.82 - Rhabdomyolysis Status: Acute (9) Obesity Code(s): E66.9 - Obesity, unspecified Status: Chronic (10) Hypertension Code(s): I10 - Essential (primary) hypertension Status: Chronic (11) Diabetes Code(s): E11.9 - Type 2 diabetes mellitus without complications Status: Chronic - Assessment and Plan Plan: NEURO: Brainstem hemorrhage measuring up to 2.8 cm in maximal diameter, mild mass effect Acute encephalopathy -Repeat CT findings as above -Neurosurgery Dr. Hopkins consulted and following - off 2% saline. Currently on free water/D5W for Na 163. -Close neuro monitoring. MRI/MRA brain -If he develops hydrocephalus will need EVD -Placed on Keppra for seizure prophylaxis -With MRSA bacteremia suspect septic emboli with mycotic aneurism vs hypertensive bleed. -More encephalopathic, will intubate for airway protection. Propofol/ Precedex gtt for sedation following intubation with daily sedation vacation. -Discussed with neurosurgery [employer] regarding back pain. Awaiting MRI spine. Will repeat Head CT 06/08 RESP: Acute resp failure Past smoking -DuoNeb every as needed -Monitor closely for airway protection -At high risk for respiratory decompensation and requiring intubation -Mildly tachypneic -Incentive spirometry CV: Lactic acidemia History of hypertension -Lactic acid at the outside hospital was 6.8 -Normal saline IV fluids, transthoracic echo -IV fluid normal saline and 2% saline -Cardene infusion to keep blood pressure less than 140/90 -May need oral scheduled medication for blood pressure control, start Lopressor twice daily - cardiology Dr. Odonnell consulted to perform LAURIE to evaluate for endocarditis GI: -Nasogastric tube for medications and feeds if fails swallow on 06/05 : Acute kidney failure Rhabdomyolysis -Monitor renal function closely. Place [place] catheter. -IV fluid resuscitation and maintenance fluid as above -Check renal ultrasound -Resolving daily ID: Severe sepsis/septic shock UTI -Antibiotics with Zosyn renally dosed. IV vancomycin. Blood cultures positive for MRSA (10/07) -ID consulted-Dr. Rodriguez -Will definitely need LAURIE to eval for endocarditis-cardiology to schedule. Should be easier after intubation -Awaiting MRI left knee due to swelling as well as possible MRI spine HEME: Leukocytosis secondary to sepsis -Monitor CBC, coags ENDO: Type 2 diabetes -Sliding scale insulin -Add basal long-acting insulin PROPH: -Bilateral lower extremity SCDs. IV famotidine. Chemical DVT prophylaxis is contraindicated LINES: -Utilize peripheral IVs, central line if needed Overall impression: Blood pressure control remains problematic and will need additional scheduled medication. Agitation appears better controlled. Bacteremia remains crucial and possibly life-threatening problem -we need to find the source. 06/08: D/W Dr. Hopkins. Called patient's son Abraham Bautista at [phone] and updated him regarding current clinical status and plan to int[facility] due to concern regarding airway protection and in order to safely get imaging and possibly LAURIE and he voiced understanding and was agreeable. condition critical. time spent on critical care excluding procedures: 40 min (1) Brain stem hemorrhage Qualifiers: Intracerebral hemorrhage etiology: nontraumatic
[2018-06-08] MEDS ORDERED: Etomidate Inj 40 MG/20 ML Vial IV.PUSH ONE ×2 (10:39→10:41)
[2018-06-08] MEDS ORDERED: fentaNYL Citrate Inj 100 MCG/2 ML Ampul ONE ×2 (10:41→10:45)
--- NOTE | 2018-06-08 11:29 | P.PCN ---
Date of procedure: 06/08/18 Pre-op diagnosis: Acute respiratory failure, encephalopathy Post-op diagnosis: same Procedure: Procedure: Endotracheal intubation Indication: Airway protection Sedation used: Etomidate 40 mg, fentanyl to 50 Mcg, rocuronium 100 mg IV Procedure: Patient was preoxygenated with 100% oxygen via Ambu bag with bag mask ventilation, following induction of sedation and neuromuscular blockade, laryngoscopy was performed using a glidescope with good visualization of vocal cords. An 8 Stateless ET tube was passed through the vocal cords under direct visualization up to the 23 centimeter luis and after inflating cuff of ET tube, correct placement was confirmed using bagging with good color change on CO2 detector, 5 point auscultation and chest rise with ventilation. Patient was connected to mechanical ventilation. Patient tolerated the procedure well. Cuff leak was noted on connection to mechanical ventilator. In view of suspicion for ruptured cuff ET tube was exchanged with a tube exchanger and once again correct placement was confirmed using bagging with good color change on CO2 detector, five-point auscultation and chest rise with ventilation. Patient maintained O2 sats greater than 90% at all times during tube exchange. Postprocedure chest x-ray was ordered. It will be reviewed when available.
[2018-06-08] MEDS ORDERED: Norepinephrine-Dextrose Drip 0 MG/0 ML BAG IV.SIG ONE (11:41)
[2018-06-08] MEDS: Propofol 1000 mg/100 ml Inj 1,000 MG/100 ML BOTTLE IV.CONT PRN (12:06)
--- NOTE | 2018-06-08 12:23 | XR ---
EXAM DATE: 06/08/2018 12:10 PM EST AGE/SEX: 68 years / Male INDICATIONS: Post Port placement. CLINICAL DATA: This is the patient's subsequent encounter. Patient reports that signs and symptoms h ave been present for 1 week and indicates a pain score of Nonresponsive. MEDICAL/SURGICAL HISTORY: . Diabetes. Hypertension. Renal Failure. None. COMPARISON: [facility] – [place], CHEST 1V SINGLE AP, 06/03/2018. . FINDINGS: ET tube is in good position. There is a feeding tube in place with tip directed into the left upper q uadrant into the body the stomach. A port is not seen. The heart size is normal. The lungs appear ruy ssly clear. A pneumothorax is not seen. CONCLUSION: A port is not seen. No acute cardiopulmonary process. Electronically signed by: Yosi Millan MD 06/08/2018 12:21 PM EST
[2018-06-08] MEDS ORDERED: Albumin Human 5% Inj 500 ML IV.SIG ONE (12:30)
[2018-06-08] MEDS: Oral Hygiene Kit OROPHARYNG SCH ×2 (12:33→18:00)
[2018-06-08] MEDS: Sodium Chloride 0.45 % Inj 1,000 ML IV.CONT SCH ×2 (12:41→23:10)
--- NOTE | 2018-06-08 12:44 | P.PNID ---
Subjective Remarks: Patient is a 68-year-old male, brought into the hospital initially at [facility] for evaluation of weakness and slurred speech. It apparently has been present for several days. He was found on the floor of his mobile home. At [facility] he was found to be febrile, WBC up to 21,000, urinalysis with pyuria, creatinine 2.33, and lactic acid was elevated. CT of the head showed focal hemorrhage in the posterior fossa. Patient was transferred to [facility] for neurosurgical evaluation. Patient since admission has had elevated temperature. His blood cultures done on admission are now reported as growing gram-positive cocci, MRSA. His urine culture is also growing MRSA. On evaluation in the intensive care unit, he is awake, and interactive. He looks slightly tachypneic at rest and and on nasal O2. He has some confusion but mostly his oriented. His chest x-ray is normal. Echo is showing calcification in the aortic valve. No vegetations seen. Infectious disease consultation has been requested to assist with evaluation and treatment of patient with MRSA bacteremia. Notes reviewed D/W RN D/W Dr Sivakumar Tinoco ([facility], [place]) Intubated BP ok Febrile Sedated CT A/P - no abscess Head MRA - no aneurysm All BC with MRSA, Vanco DARYL 1 - BC 06/03-06/07 Echo mild MR and AI; dense calcification of the AV Cardiology notes reviewed CXR - clear post intubation Creatinine worse Gentamicin D/C On vanco Antibiotics: vanco Gentamicin Lines: PIV Past Medical History: Diabetes History of MRSA infection Onset Date: ~06/03/18 Hypertension Obesity UTI (urinary tract infection) Allergies/Adverse Reactions: Allergies No Known Allergies Allergy (Verified 06/03/18 01:32) Objective Vital Signs 06/07/18 13:00 06/07/18 14:00 06/07/18 15:00 Temperature Pulse Rate 97 H 98 H 80 Respiratory Rate 35 H 39 H 30 H Blood Pressure 121/56 L 117/57 L 90/52 L Pulse Oximetry 97 98 97 06/07/18 16:00 06/07/18 17:00 06/07/18 18:00 Temperature 98.8 F Pulse Rate 83 100 H 99 H Respiratory Rate 38 H 39 H 35 H Blood Pressure 121/59 L 116/56 L 116/56 L Pulse Oximetry 100 97 95 12/03/18 19:00 06/07/18 19:30 06/07/18 20:00 Temperature 103.0 F H Pulse Rate 103 H 104 H 102 H Respiratory Rate 35 H 39 H 36 H Blood Pressure 118/57 L 129/62 115/57 L Pulse Oximetry 96 95 96 06/07/18 20:30 06/07/18 20:57 06/07/18 21:00 Temperature Pulse Rate 105 H 102 H Respiratory Rate 32 H 40 H Blood Pressure 113/60 116/59 L Pulse Oximetry 94 L 94 L 94 L 06/07/18 21:30 06/07/18 22:00 06/07/18 22:30 Temperature Pulse Rate 106 H 106 H 100 H Respiratory Rate 41 H 41 H 40 H Blood Pressure 119/58 L 108/55 L 109/57 L Pulse Oximetry 93 L 93 L 93 L 06/07/18 23:00 06/07/18 23:30 06/08/18 00:00 Temperature 100.7 F H Pulse Rate 96 H 96 H 90 Respiratory Rate 39 H 38 H 36 H Blood Pressure 108/56 L 107/58 L 104/58 L Pulse Oximetry 93 L 93 L 94 L 06/08/18 00:30 06/08/18 01:00 06/08/18 01:30 Temperature Pulse Rate 93 H 85 89 Respiratory Rate 38 H 38 H 32 H Blood Pressure 110/59 L 112/55 L 118/56 L Pulse Oximetry 94 L 95 97 06/08/18 02:00 06/08/18 02:30 06/08/18 03:00 Temperature 100.1 F H Pulse Rate 97 H 98 H 100 H Respiratory Rate 36 H 38 H 39 H Blood Pressure 122/60 126/60 126/59 L Pulse Oximetry 97 95 94 L 06/08/18 03:30 06/08/18 04:00 06/08/18 04:30 Temperature 101.5 F H Pulse Rate 103 H 99 H 100 H Respiratory Rate 36 H 34 H 36 H Blood Pressure 126/62 112/58 L 115/58 L Pulse Oximetry 94 L 94 L 94 L 06/08/18 05:00 06/08/18 05:30 06/08/18 06:00 Temperature 100.7 F H Pulse Rate 101 H 97 H 96 H Respiratory Rate 39 H 38 H 38 H Blood Pressure 117/58 L 116/57 L 120/60 Pulse Oximetry 93 L 94 L 94 L Intake & Output 06/07/18 06/08/18 06/08/18 18:59 06:59 18:59 Intake Total 2128.0 / 2128.0 2435.5 / 2435.5 2079 Output Total 700 / 700 400 / 400 Balance 1428.0 / 1428.0 2035.5 / 2035.5 2079 / 2079 Weight 132.4 kg Intake: IV 1430.0 / 1430.0 1407.5 / 1407.5 2079 D5W Inj 1,000 ML @ 75 mls/hr IV 1000 / 1000 .CONT .[id number] JACOB Rx#:[id number] LR 1000 mL Inj 1,000 ML @ 75 600 / 600 1000 / 1000 260 / 260 mls/hr IV.CONT .[id number] JACOB Rx# :[id number] Ofirmev Inj 1,000 mg In 100 ml 200 / 200 @ 400 mls/hr IV.SIG Q8H PRN Rx# :[id number] D5W Inj 1,000 ML @ 75 mls/hr IV 300 / 300 .SIG .[id number] JACOB Rx#:[id number] Gentamicin Inj 100 MG In NS Inj 205.0 / 205.0 102.5 / 102.5 100 ML @ 100 mls/hr IV.SIG Q12H JACOB Rx#:[id number] Vancomycin Inj 2,000 MG In NS 520 / 520 Inj 500 ML @ 250 mls/hr IV.SIG Q18H JACOB Rx#:[id number] Keppra Inj 500 MG In NS Inj 100 105 / 105 105 / 105 ML @ 400 mls/hr IV.SIG Q12H JACOB Rx#:[id number] Tube Feeding 608 / 608 528 / 528 Water Bolus Amount 500 / 500 Other 90 / 90 Output: Urine Amount (Catheter) 700 / 700 400 / 400 Indwelling Urethral Catheter 700 / 700 400 / 400 Other: Date of Last Bowel Movement 06/02/18 06/02/18 # Bowel Movements 0 06/07/18 14:19 Blood - Peripheral Aerobic Blood Culture - Preliminary gram positive cocci 06/07/18 14:19 Blood - Peripheral Anaerobic Blood Culture - Preliminary No growth in 1 day 06/06/18 04:13 Blood - Peripheral Aerobic Blood Culture - Final S. aureus MRSA 06/06/18 04:13 Blood - Peripheral Anaerobic Blood Culture - Preliminary No growth in 2 days 06/04/18 16:45 Blood - Peripheral Aerobic Blood Culture - Final S. aureus MRSA 06/04/18 16:45 Blood - Peripheral Anaerobic Blood Culture - Preliminary No growth in 4 days 06/04/18 16:45 Blood - Peripheral Aerobic Blood Culture - Final S. aureus MRSA 06/04/18 16:45 Blood - Peripheral Anaerobic Blood Culture - Preliminary No growth in 4 days 06/08/18 05:54 Blood - Peripheral Aerobic Blood Culture - Pending 06/08/18 05:54 Blood - Peripheral Anaerobic Blood Culture - Pending 06/07/18 12:49 Catheterized Urine Urine Culture - Pending 06/05/18 04:07 Blood - Peripheral Aerobic Blood Culture - Final S. aureus MRSA 06/05/18 04:07 Blood - Peripheral Anaerobic Blood Culture - Final S. aureus MRSA 06/03/18 05:20 Blood - Peripheral Aerobic Blood Culture - Final S. aureus MRSA 06/03/18 05:20 Blood - Peripheral Anaerobic Blood Culture - Final S. aureus MRSA 06/03/18 07:27 Blood - Peripheral Aerobic Blood Culture - Final S. aureus MRSA 06/03/18 07:27 Blood - Peripheral Anaerobic Blood Culture - Final S. aureus MRSA 06/03/18 05:20 Catheterized Urine Urine Culture - Final S. aureus MRSA Lab - Hematology Results 06/07/18 06/08/18 05:04 05:54 WBC 12.3 H 15.4 H RBC 3.96 L 3.88 L Hgb 11.8 L 11.4 L Hct 35.0 L 34.8 L MCV 88.4 89.7 MCH 29.9 29.4 MCHC 33.8 32.8 RDW 16.6 17.2 Plt Count 183 D 219 MPV 9.5 9.9 Neut % (Auto) 81.3 H 77.1 H Lymph % (Auto) 8.8 L 11.8 Harmon % (Auto) 9.5 H 9.7 H Eos % (Auto) 0.3 0.9 Baso % (Auto) 0.1 0.5 Neut # (Auto) 10.0 H 11.9 H Lymph # (Auto) 1.1 1.8 Harmon # (Auto) 1.2 H 1.5 H Eos # (Auto) 0.0 0.1 Baso # (Auto) 0.0 0.1 WBC Differential . . Differential Comment Auto diff final Auto diff final Lab - Chemistry Results 06/06/18 06/06/18 06/07/18 17:53 20:01 01:15 Sodium Potassium Chloride Carbon Dioxide Anion Gap BUN Creatinine Estimated GFR POC Glucose 152 H 168 H 138 H Random Glucose Calcium Total Bilirubin AST ALT Alkaline Phosphatase Total Protein Albumin 06/07/18 06/07/18 06/07/18 04:48 05:04 08:24 Sodium Potassium Chloride Carbon Dioxide Anion Gap BUN Creatinine 1.47 H Estimated GFR 47 L POC Glucose 144 H 181 H Random Glucose Calcium Total Bilirubin AST ALT Alkaline Phosphatase Total Protein Albumin 06/07/18 06/07/18 06/07/18 13:23 14:19 21:27 Sodium 163 H* Potassium 4.2 Chloride 137 H Carbon Dioxide 20.2 L Anion Gap 6 BUN 42 H Creatinine 1.64 H Estimated GFR 42 L POC Glucose 168 H 139 H Random Glucose 149 H Calcium 8.5 D Total Bilirubin 1.3 H AST 74 H ALT 42 Alkaline Phosphatase 56 Total Protein 6.6 Albumin 1.9 L 06/08/18 06/08/18 06/08/18 01:24 05:04 05:54 Sodium 163 H* Potassium 4.7 Chloride 134 H Carbon Dioxide 22.0 Anion Gap 7 BUN 69 H Creatinine 2.86 H Estimated GFR 22 L POC Glucose 187 H 177 H Random Glucose 190 H Calcium 8.2 L Total Bilirubin AST ALT Alkaline Phosphatase Total Protein Albumin 06/08/18 06/08/18 08:37 12:15 Sodium Potassium Chloride Carbon Dioxide Anion Gap BUN Creatinine Estimated GFR POC Glucose 214 H 190 H Random Glucose Calcium Total Bilirubin AST ALT Alkaline Phosphatase Total Protein Albumin Imaging: ITS Impressions Abdomen/Bladder Ultrasound 06/03/18 00:00 CONCLUSION: 1. Bilateral simple cysts within the kidneys as above. 2. No findings to indicate renal obstruction. 3. Renal cortex appears of adequate thickness. Abdomen/Pelvis CT 06/04/18 00:00 CONCLUSION: 1. The second and third portions of the duodenum appear mildly prominent and indistinct with mild surrounding inflammatory change extending into the adjacent mesentery. The findings are concerning for duodenitis. 2. Bilateral renal cysts. 3. Minimal pleural effusions and atelectasis in the lung bases. 4. The gallbladder is unremarkable. Head MRI 06/04/18 00:00 CONCLUSION: 1. There is a focal stable area of subacute hemorrhage adjacent to the posterior right midbrain measuring approximately 1.5 cm in length. This is not significantly changed in its overall appearance compared to the recent CT scan of the brain. No definite new areas of hemorrhage are demonstrated. 2. Stable diffuse bilateral cortical atrophy. Head MRA 06/04/18 00:00 CONCLUSION: 1. Atherosclerotic changes involving the left M2 segment. 2. No aneurysm or vascular abnormality identified. 3. Visualization of the known blood products along the right side of the brainstem. Neck MRA 06/04/18 00:00 CONCLUSION: 1. Unremarkable MRA of the carotids. Percent stenosis is calculated using the diameter of the stenotic region over the diameter of the normal distal internal carotid artery Abdomen X-Ray 06/05/18 00:00 CONCLUSION: Feeding tube distal tip is in the gastric body. Head CT 06/06/18 00:00 CONCLUSION: 1. Slight interval improvement of the focal area of hemorrhage within the right basilar cistern which measures 1.9 x 0.8 cm. 2. Diffuse cerebral atrophy is stable. 3. Mild periventricular white matter small vessel ischemic changes are noted. . Knee X-Ray 06/06/18 00:00 CONCLUSION: 1. Moderate suprapatellar effusion. 2. Prominent degenerative osteoarthritis. Chest X-Ray 06/08/18 11:16 CONCLUSION: A port is not seen. No acute cardiopulmonary process. Physical Exam: GENERAL: Sedated on the vent, not in respiratory distress. SKIN: Warm and dry. No generalized rash, no ecchymoses and no evidence of embolic lesions. HEAD: Atraumatic. Normocephalic. No temporal wasting, or tenderness. EYES: [place] conjunctiva. No petechia or hemorrhage. Pupils equal, round and reactive to light. No scleral icterus. No injection or drainage. EARS, NOSE AND THROAT: Nose without bleeding or purulent nasal discharge. Orally intubated NECK: Trachea midline. Supple and not tender, no meningeal signs CARDIOVASCULAR: Regular rate and rhythm. No murmurs, rubs or gallops heard RESPIRATORY: Clear to auscultation. Breath sounds equal bilaterally. No rales , wheezing or rhonchi ABDOMEN: Soft, obese, globular, bowel sounds present and normoactive. EXTREMITIES: No clubbing, cyanosis, or edema. No joint effusion, has good ROM. No calf tenderness. NEUROLOGICAL: Sedated. PSYCHIATRIC: Unable to assess. LINE: No evidence of infection : [place] in place, with sediment Assessment and Plan - Plan Impression MRSA sepsis on presentation, worrisome for IE - MRSA not a common pathogen - so far no obvious source for the MRSA, and very likely endovascular - BC still (+) UTI Hemorrhage posterior fossa - no aneurysm: MRA negative for mycotic aneurism Hx DM, HTN, Obesity Renal insufficiency, worse Fevers, persistent Respiratory failure Recommendation Repeat blood culture to document clearing Change vanco to Cubicin at least to help and hope for quicker sterilization of blood Stop gentamicin To have MRI spine, L knee, and repeat CT head Await cardiology input on LAURIE Follow C/S Monitor progress D/W RN D/W Dr Sivakumar Tinoco ([facility], [place])
[2018-06-08] MEDS ORDERED: Sod Chloride 0.9% Inj 1,000 ML IV.SIG ONE ×2 (13:00→19:00)
[2018-06-08] MEDS ORDERED: Pharmacy Ordered Lab Info OTHER ONE ×2 (13:45→15:00)
[2018-06-08 14:11] LABS: Alanine Aminotransferase 45 U/L (12-78); Albumin 1.9 g/dL (3.4-5.0); Alkaline Phosphatase 64 U/L (45-117); Aspartate Aminotransferase 85 U/L (15-37); Total Protein 6.5 g/dL (6.4-8.2)
--- NOTE | 2018-06-08 14:48 | P.PNCA ---
Subjective Interval history: intubated Medications and Allergies Active Medications: Active Medications Acetaminophen (Tylenol) 650 mg PO Q6H PRN PRN Reason: PAIN 1-10 AND/OR FEVER >101F Last Admin: 06/06/18 12:05 Dose: 650 mg Al Hydroxide/Mg Hydroxide (Milk Of Jermain Liq) 30 ml PO Q12H PRN PRN Reason: Mild Constipation Albuterol (Duoneb Neb (Prn)) 1 ampul NEB Q2HR NEB PRN PRN Reason: WHEEZING Last Admin: 06/03/18 19:44 Dose: 1 ampul Albuterol (Duoneb Neb (Leidy)) 1 ampul NEB Q6HR NEB [facility] Amlodipine Besylate (Norvasc) 10 mg PO DAILY [facility] Last Admin: 06/08/18 08:26 Dose: 10 mg Bisacodyl (Dulcolax Supp) 10 mg RECTAL DAILY PRN PRN Reason: SEVERE CONSITIPATION Chlorhexidine Gluconate (Peridex 0.12% Oral Kit) 15 ml OROPHARYNG BID@0800, 2000 [facility] Clonidine HCl (Catapres) 0.1 mg PO Q6H PRN PRN Reason: SBP>160, DBP>90 Dextrose (D50w Vial) 50 ml IV.PUSH UNSCH PRN PRN Reason: PER HYPOGLYCEMIA PROTOCOL Famotidine (Pepcid Pf Inj) 20 mg IV.PUSH Q12HR [facility] Last Admin: 06/08/18 08:28 Dose: 20 mg Glucagon (Glucagon Inj) 1 mg OTHER PRN PRN PRN Reason: for Hypoglycemia Protocol Levetiracetam 500 mg/ Sodium (Chloride) 105 mls @ 400 mls/hr IV.SIG Q12H [facility] Last Infusion: 06/08/18 04:39 Dose: Infused Sodium Phosphate 30 mmol/ (Sodium Chloride) 260 mls @ 42 mls/hr IV.SIG UNSCH PRN PRN Reason: For Phosphorus < 2.5 mg/dL Dexmedetomidine HCl 200 mcg/ (Sodium Chloride) 50 mls @ 6.65 mls/hr IV.CONT TITRATE PRN; Protocol PRN Reason: Per Protocol Last Titration: 06/06/18 08:30 Dose: 0 mcg/kg/hr, 0 mls/hr Acetaminophen (Ofirmev Inj) 1,000 mg in 100 mls @ 400 mls/hr IV.SIG Q8H PRN PRN Reason: FEVER > 101 F Last Infusion: 06/08/18 04:56 Dose: Infused Propofol (Diprivan 1000 Mg/100 Ml Inj) 1,000 mg in 100 mls @ 3.972 mls/hr IV.CONT TITRATE PRN; Protocol PRN Reason: Per Protocol Last Admin: 06/08/18 12:06 Dose: 5 mcg/kg/min, 3.97 mls/hr Norepinephrine Bitartrate (Levophed-Dextrose 4 Mg/250 Ml Drip) 4 mg in 250 mls @ 7.5 mls/hr IV.SIG TITRATE PRN; Protocol PRN Reason: Per Protocol Sodium Chloride (1/2 Normal Saline Inj) 1,000 mls @ 125 mls/hr IV.CONT .Q8H [facility] Last Admin: 06/08/18 12:41 Dose: 125 mls/hr Daptomycin 800 mg/ Sodium (Chloride) 100 mls @ 200 mls/hr IV.SIG Q48H [facility] Insulin Human Regular (Novolin R Correctional Sugar Inj) 0 units SQ Q4HR [facility]; Protocol Last Admin: 06/08/18 12:33 Dose: 1 units Labetalol HCl (Trandate Inj) 10 mg IV.PUSH Q2H PRN PRN Reason: BP > 140/90 Last Admin: 06/07/18 02:07 Dose: 10 mg Lactulose (Lactulose Liq) 30 ml PO DAILY PRN PRN Reason: SEVERE CONSITIPATION Metoprolol Tartrate (Lopressor) 25 mg PO BID [facility] Last Admin: 06/08/18 08:26 Dose: 25 mg Miscellaneous Medication () 1 each OROPHARYNG 0000,0400,1200,1600 [facility] Last Admin: 06/08/18 12:33 Dose: 1 each Mupirocin (Bactroban 2% Nasal Oint) 1 applicatio EACH NARE BID [facility] Stop: 06/10/18 09:01 Last Admin: 06/08/18 08:27 Dose: 1 applicatio Senna/Docusate Sodium (Shasha-Colace) 1 tab PO BID [facility] Last Admin: 06/08/18 08:26 Dose: 1 tab Sennosides (Senokot) 17.2 mg PO Q12H PRN PRN Reason: Moderate Constipation Sodium Chloride (Ns Flush) 2 ml IV.FLUSH BID [facility] Last Admin: 06/08/18 08:28 Dose: 2 ml Sodium Chloride (Ns Flush) 2 ml IV.FLUSH PRN PRN PRN Reason: FLUSH AFTER USING IV ACCESS Sterile Water (Free Water) 250 ml G-TUBE Q8HR [facility] Last Admin: 06/08/18 05:10 Dose: 250 ml Terbutaline Sulfate (Brethine Inj) 1 mg SQ UNSCH PRN PRN Reason: For Extravasation Allergies Allergy/AdvReac Type Severity Reaction Status Date / Time No Known Allergies Allergy Verified 06/03/18 01:32 Physical Exam Vital signs: Vital Signs 06/07/18 15:00 06/07/18 16:00 06/07/18 17:00 Temperature 98.8 F Pulse Rate 80 83 100 H Respiratory Rate 30 H 38 H 39 H Blood Pressure 90/52 L 121/59 L 116/56 L Pulse Oximetry 97 100 97 06/07/18 18:00 06/07/18 19:00 06/07/18 19:30 Temperature Pulse Rate 99 H 103 H 104 H Respiratory Rate 35 H 35 H 39 H Blood Pressure 116/56 L 118/57 L 129/62 Pulse Oximetry 95 96 95 06/07/18 20:00 06/07/18 20:30 06/07/18 20:57 Temperature 103.0 F H Pulse Rate 102 H 105 H Respiratory Rate 36 H 32 H Blood Pressure 115/57 L 113/60 Pulse Oximetry 96 94 L 94 L 06/07/18 21:00 06/07/18 21:30 06/07/18 22:00 Temperature Pulse Rate 102 H 106 H 106 H Respiratory Rate 40 H 41 H 41 H Blood Pressure 116/59 L 119/58 L 108/55 L Pulse Oximetry 94 L 93 L 93 L 06/07/18 22:30 06/07/18 23:00 06/07/18 23:30 Temperature Pulse Rate 100 H 96 H 96 H Respiratory Rate 40 H 39 H 38 H Blood Pressure 109/57 L 108/56 L 107/58 L Pulse Oximetry 93 L 93 L 93 L 06/08/18 00:00 06/08/18 00:30 06/08/18 01:00 Temperature 100.7 F H Pulse Rate 90 93 H 85 Respiratory Rate 36 H 38 H 38 H Blood Pressure 104/58 L 110/59 L 112/55 L Pulse Oximetry 94 L 94 L 95 12/04/18 01:30 06/08/18 02:00 06/08/18 02:30 Temperature 100.1 F H Pulse Rate 89 97 H 98 H Respiratory Rate 32 H 36 H 38 H Blood Pressure 118/56 L 122/60 126/60 Pulse Oximetry 97 97 95 06/08/18 03:00 06/08/18 03:30 06/08/18 04:00 Temperature 101.5 F H Pulse Rate 100 H 103 H 99 H Respiratory Rate 39 H 36 H 34 H Blood Pressure 126/59 L 126/62 112/58 L Pulse Oximetry 94 L 94 L 94 L 06/08/18 04:30 06/08/18 05:00 06/08/18 05:30 Temperature Pulse Rate 100 H 101 H 97 H Respiratory Rate 36 H 39 H 38 H Blood Pressure 115/58 L 117/58 L 116/57 L Pulse Oximetry 94 L 93 L 94 L 06/08/18 06:00 06/08/18 07:00 06/08/18 08:00 Temperature 100.7 F H 99 F Pulse Rate 96 H 93 H 90 Respiratory Rate 38 H 37 H 36 H Blood Pressure 120/60 117/57 L 117/56 L Pulse Oximetry 94 L 94 L 95 06/08/18 09:00 06/08/18 10:00 06/08/18 11:00 Temperature Pulse Rate 93 H 88 76 Respiratory Rate 36 H 37 H 37 H Blood Pressure 127/64 122/60 123/54 L Pulse Oximetry 97 97 98 06/08/18 12:00 06/08/18 13:00 06/08/18 14:00 Temperature 98.8 F Pulse Rate 73 76 67 Respiratory Rate 15 17 25 H Blood Pressure 107/53 L 106/54 L 116/59 L Pulse Oximetry 97 99 98 Intake & Output 06/07/18 06/08/18 06/08/18 18:59 06:59 18:59 Intake Total 2128.0 / 2128.0 2435.5 / 2435.5 3080 / 3080 Output Total 700 / 700 400 / 400 Balance 1428.0 / 1428.0 2035.5 / 2035.5 3080 / 3080 Weight 132.4 kg Intake: IV 1430.0 / 1430.0 1407.5 / 1407.5 3080 / 3080 D5W Inj 1,000 ML @ 75 mls/hr IV 1000 / 1000 .CONT .[id number] [facility] Rx#:[id number] LR 1000 mL Inj 1,000 ML @ 75 600 / 600 1000 / 1000 260 / 260 mls/hr IV.CONT .[id number] [facility] Rx# :[id number] Ofirmev Inj 1,000 mg In 100 ml 200 / 200 @ 400 mls/hr IV.SIG Q8H PRN Rx# :[id number] D5W Inj 1,000 ML @ 75 mls/hr IV 300 / 300 .SIG .[id number] [facility] Rx#:[id number] Gentamicin Inj 100 MG In NS Inj 205.0 / 205.0 102.5 / 102.5 100 ML @ 100 mls/hr IV.SIG Q12H [facility] Rx#:[id number] NS Inj 1,000 ML @ As Directed 1000 / 1000 IV.SIG BOLUS ONE Rx#:[id number] Vancomycin Inj 2,000 MG In NS 520 / 520 Inj 500 ML @ 250 mls/hr IV.SIG Q18H [facility] Rx#:[id number] Keppra Inj 500 MG In NS Inj 100 105 / 105 105 / 105 ML @ 400 mls/hr IV.SIG Q12H [facility] Rx#:[id number] Tube Feeding 608 / 608 528 / 528 Water Bolus Amount 500 / 500 Other 90 / 90 Output: Urine Amount (Catheter) 700 / 700 400 / 400 Indwelling Urethral Catheter 700 / 700 400 / 400 Other: Date of Last Bowel Movement 06/02/18 06/02/18 # Bowel Movements 0 - Constitutional no acute distress - Routine HEENT Exam Head: Present: normocephalic - Routine Neck Exam Present: supple - Routine Respiratory Exam Present: CTA bilaterally - Routine Cardiovascular Exam Present: S1, S2 - Routine Abdominal Exam Present: soft - Routine Extremities Exam Comments: no sourav - Urinary Catheter Management Indwelling Urethral Catheter Cath placed during this visit: yes Reason for continuing: Hourly intake/output Insertion date: 06/03/18 Insertion time: 03:00 Results 06/08/18 05:54 06/08/18 05:54 Cardiac Enzymes 06/07/18 06/08/18 06/08/18 Range/Units 14:19 05:54 05:54 AST 74 H 85 H Cancelled (15-37) U/L CBC 06/07/18 06/08/18 Range/Units 05:04 05:54 WBC 12.3 H 15.4 H (4.0-11.0) th/mm3 RBC 3.96 L 3.88 L (4.50-5.90) mil/mm3 Hgb 11.8 L 11.4 L (13.0-17.0) gm/dL Hct 35.0 L 34.8 L (39.0-51.0) % Plt Count 183 D 219 (150-450) th/mm3 Neut # (Auto) 10.0 H 11.9 H (1.8-7.7) th/mm3 Lymph # (Auto) 1.1 1.8 (1.0-4.8) th/mm3 [place] # (Auto) 1.2 H 1.5 H (0.0-0.9) th/mm3 Eos # (Auto) 0.0 0.1 (0.0-0.4) th/mm3 Baso # (Auto) 0.0 0.1 (0.0-0.2) th/mm3 Comprehensive Metabolic Panel 06/07/18 06/07/18 06/08/18 Range/Units 05:04 14:19 05:54 Sodium 163 H* 163 H* (136-145) meq/L Potassium 4.2 4.7 (3.5-5.1) meq/L Chloride 137 H 134 H (98-107) meq/L Carbon Dioxide 20.2 L 22.0 (21.0-32.0) meq/L BUN 42 H 69 H (7-18) mg/dL Creatinine 1.47 H 1.64 H 2.86 H (0.60-1.30) mg/dL Calcium 8.5 D 8.2 L (8.5-10.1) mg/dL AST 74 H 85 H (15-37) U/L ALT 42 45 (12-78) U/L Alkaline Phosphatase 56 64 (45-117) U/L Total Protein 6.6 6.5 (6.4-8.2) g/dL Albumin 1.9 L 1.9 L (3.4-5.0) g/dL 06/08/18 Range/Units 05:54 Sodium Cancelled (136-145) meq/L Potassium Cancelled (3.5-5.1) meq/L Chloride Cancelled (98-107) meq/L Carbon Dioxide Cancelled (21.0-32.0) meq/L BUN Cancelled (7-18) mg/dL Creatinine Cancelled (0.60-1.30) mg/dL Calcium Cancelled (8.5-10.1) mg/dL AST Cancelled (15-37) U/L ALT Cancelled (12-78) U/L Alkaline Phosphatase Cancelled (45-117) U/L Total Protein Cancelled (6.4-8.2) g/dL Albumin Cancelled (3.4-5.0) g/dL Intake and Output 06/07/18 06/08/18 06/08/18 22:59 06:59 14:59 Intake Total 2125.5 / 2125.5 2335.5 / 2335.5 3080 / 3080 Output Total 700 / 700 400 / 400 Balance 1425.5 / 1425.5 1935.5 / 1935.5 3080 / 3080 Intake: IV 1427.5 / 1427.5 1307.5 / 1307.5 3080 / 3080 D5W Inj 1,000 ML @ 75 mls/hr IV 1000 / 1000 .CONT .[id number] [facility] Rx#:[id number] LR 1000 mL Inj 1,000 ML @ 75 600 / 600 1000 / 1000 260 / 260 mls/hr IV.CONT .[id number] [facility] Rx# :[id number] Ofirmev Inj 1,000 mg In 100 ml 100 / 100 100 / 100 @ 400 mls/hr IV.SIG Q8H PRN Rx# :[id number] D5W Inj 1,000 ML @ 75 mls/hr IV 300 / 300 .SIG .[id number] [facility] Rx#:[id number] Gentamicin Inj 100 MG In NS Inj 102.5 / 102.5 102.5 / 102.5 100 ML @ 100 mls/hr IV.SIG Q12H [facility] Rx#:[id number] NS Inj 1,000 ML @ As Directed 1000 / 1000 IV.SIG BOLUS ONE Rx#:[id number] Vancomycin Inj 2,000 MG In NS 520 / 520 Inj 500 ML @ 250 mls/hr IV.SIG Q18H [facility] Rx#:[id number] Keppra Inj 500 MG In NS Inj 100 105 / 105 105 / 105 ML @ 400 mls/hr IV.SIG Q12H [facility] Rx#:[id number] Tube Feeding 608 / 608 528 / 528 Water Bolus Amount 500 / 500 Other 90 / 90 Output: Urine Amount (Catheter) 700 / 700 400 / 400 Indwelling Urethral Catheter 700 / 700 400 / 400 Other: Date of Last Bowel Movement 06/02/18 06/02/18 # Bowel Movements 0 Weight 132.4 kg - Imaging and Cardiology Imaging: Impressions Head CT 06/06/18 00:00 CONCLUSION: 1. Slight interval improvement of the focal area of hemorrhage within the right basilar cistern which measures 1.9 x 0.8 cm. 2. Diffuse cerebral atrophy is stable. 3. Mild periventricular white matter small vessel ischemic changes are noted. . Knee X-Ray 06/06/18 00:00 CONCLUSION: 1. Moderate suprapatellar effusion. 2. Prominent degenerative osteoarthritis. Chest X-Ray 06/08/18 11:16 CONCLUSION: A port is not seen. No acute cardiopulmonary process. 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 Status: Acute (4) Encephalopathy acute Code(s): G93.40 - Encephalopathy, unspecified Status: Acute (5) Acute kidney failure Code(s): N17.9 - Acute kidney failure, unspecified Status: Acute (6) Diabetes Code(s): E11.9 - Type 2 diabetes mellitus without complications Status: Chronic (7) Hypertension Code(s): I10 - Essential (primary) hypertension Status: Chronic (8) Obesity Code(s): E66.9 - Obesity, unspecified Status: Chronic (9) Severe sepsis Code(s): A41.9 - Sepsis, unspecified organism; R65.20 - Severe sepsis without septic shock Status: Acute - Plan 1.) Bacteremia - consider mohsen if/when ich resolves, patient is consentable and hypernatremia resolves (3) Brain stem hemorrhage Qualifiers: Intracerebral hemorrhage etiology: nontraumatic
--- NOTE | 2018-06-08 15:41 | CT ---
EXAM DATE: 06/08/2018 3:36 PM EST AGE/SEX: 68 years / Male INDICATIONS: Follow up hemorrhage. CLINICAL DATA: This is the patient's subsequent encounter. Patient reports that signs and symptoms h ave been present for 4 - 6 days and indicates a pain score of Nonresponsive. MEDICAL/SURGICAL HISTORY: Non-responsive. Non-responsive. RADIATION DOSE: 43.97 CTDI (mGy) COMPARISON: [facility] [place], CT HEAD W/O CONTRAST, 06/06/2018. . TECHNIQUE: CT of the head without contrast. Using automated exposure control and adjustment of the mA and/or kV according to patient size, radiation dose was kept as low as reasonably achievable to ob tain optimal diagnostic quality images. DICOM format image data is available electronically for revi ew and comparison. FINDINGS: The previously seen hemorrhage in the wing of the ambient cistern on the right is no longer identifie d with a small amount of hemorrhage in the interpeduncular fossa no ventriculomegaly is seen. No extr a axial fluid collections are identified. Posterior fossa structures are unremarkable. CONCLUSION: 1. Resolving subarachnoid hemorrhage. No acute hemorrhage is identified. . Electronically signed by: Chase Galeas MD 06/08/2018 3:40 PM EST
--- NOTE | 2018-06-08 16:33 | MR ---
EXAM DATE: 06/08/2018 4:26 PM EST AGE/SEX: 68 years / Male INDICATIONS: Diabetic patient with sepsis being evaluated for possible abscess. Resolving subarachnoi d hemorrhage. GFR 22 CLINICAL DATA: This is the patient's initial encounter. Patient reports that signs and symptoms have been present for 4 - 6 days and indicates a pain score of Nonresponsive. MEDICAL/SURGICAL HISTORY: Diabetes mellitus type II. Hypertension. . Toe surgery. COMPARISON: None.. TECHNIQUE: Multiplanar, multisequence MRI of the thoracic spine was performed. FINDINGS: Vertebrae: Normal vertebral body height. Homogeneous marrow signal. There is a mild scoliosis. Alignment: Normal. Discs: There is mild desiccation and degenerative change. Cord: Normal position and configuration. T1-T2: The thecal sac has a normal diameter. No evidence of disc bulge or protrusion. T2-T3: The thecal sac has a normal diameter. No evidence of disc bulge or protrusion. T3-T4: The thecal sac has a normal diameter. No evidence of disc bulge or protrusion. T4-T5: The thecal sac has a normal diameter. No evidence of disc bulge or protrusion. T5-T6: There is a small posterior central protrusion with mild flattening of the anterior cord. T6-T7: Annular disc bulge with mild flattening of the anterior thecal sac. T7-T8: The thecal sac has a normal diameter. No evidence of disc bulge or protrusion. T8-T9: The thecal sac has a normal diameter. No evidence of disc bulge or protrusion. T9-T10: The thecal sac has a normal diameter. No evidence of disc bulge or protrusion. T10-T11: The thecal sac has a normal diameter. No evidence of disc bulge or protrusion. T11-T12: The thecal sac has a normal diameter. No evidence of disc bulge or protrusion. T12-L1: The thecal sac has a normal diameter. No evidence of disc bulge or protrusion. CONCLUSION: 1. Limited, noncontrast examination with no evidence of abscess. 2. Small posterior central protrusion at T5-6 with mild flattening of the anterior cord. 3. Posterior disc bulge at T6-7 with mild flattening of the anterior thecal sac. Electronically signed by: Bello Wagner MD 06/08/2018 4:32 PM EST
--- NOTE | 2018-06-08 16:44 | MR ---
EXAM DATE: 06/08/2018 4:30 PM EST AGE/SEX: 68 years / Male INDICATIONS: Abscess. GFR 22. CLINICAL DATA: This is the patient's initial encounter. Patient reports that signs and symptoms have been present for 4 - 6 days and indicates a pain score of Nonresponsive. MEDICAL/SURGICAL HISTORY: Diabetes mellitus type II. Hypertension. . Toe surgery. COMPARISON: No prior exams available for comparison. TECHNIQUE: Multiplanar, multisequence MRI examination of the cervical spine was performed without co ntrast. FINDINGS: Vertebrae: Normal vertebral body height. Homogeneous marrow signal. There is very prominent anterio r marginal osteophytes. There is increased signal between the anterior osteophytes at the C6-C7 level and extending into the anterior disc space. Alignment: Normal. Cord: Normal configuration and signal. Post Fossa: The cerebellar tonsils are normal in position. C2-C3: There is a mild left lateral recess disc protrusion with mild osteophyte formation. This caus es a mild impression on the anterior left side of thecal sac. These be CSF around the cord. There is facet hypertrophy on the left. There is some narrowing of the left neural foramina. The right neural foramen appears patent. C3-C4: There is a mild central disc protrusion. There continues be CSF around the cord. There is fac et hypertrophy. There appears to be neural foraminal narrowing being worse on the left. C4-C5: There is minimal disc bulge without significant stenosis. There is uncovertebral hypertrophy and facet hypertrophy. There is narrowing of the left neural foramina. Right neural foramina is gross ly patent. C5-C6: There is mild diffuse disc bulge causing a mild impression on thecal sac. There continues be CSF around the cord. There is facet hypertrophy. The neural foramina are mildly narrowed. C6-C7: Posterior disc margin appears grossly intact. Significant impression on thecal sac is not see n. Again there is increased signal seen in the anterior disc region and extending between the anterio r osteophytes. There is facet hypertrophy. The neural foramina are grossly patent. C7-T1: No epidural impressions seen. CONCLUSION: 1. Increased signal anterior to the C6-C7 disc level and between the prominent anterior marginal ost eophytes. The anterior longitudinal ligament is not seen. This could be the sequela of an injury in t his region. The remaining aspect of the disc is intact. The vertebral bodies demonstrate normal signa l. Prevertebral soft tissue swelling is not seen. This could be chronic. Fluid resembling a pseudarth rosis can also develop between osteophytes potentially. The remaining soft tissues appear intact. 2. Mild left lateral recess disc protrusion at the C2-C3 level. 3. Mild central disc protrusion at the C3-C4 level. 4. Mild disc bulge at the C5-C6 level and minimal disc bulge at the C4-C5 level. 5. Scattered neural foraminal narrowing as described above. Electronically signed by: Yosi Millan MD 06/08/2018 4:42 PM EST
--- NOTE | 2018-06-08 17:00 | MR ---
EXAM DATE: 06/08/2018 4:51 PM EST AGE/SEX: 68 years / Male INDICATIONS: Abscess. GFR 22. CLINICAL DATA: This is the patient's initial encounter. Patient reports that signs and symptoms have been present for 4 - 6 days and indicates a pain score of Nonresponsive. MEDICAL/SURGICAL HISTORY: Diabetes mellitus type II. Hypertension. . Toe surgery. COMPARISON: No prior exams available for comparison. TECHNIQUE: Multiplanar, multisequence MRI of the lumbar spine was performed without contrast. Patie nt was scanned in a sitting position; neutral, flexion, and extension scans were performed in the sa gittal plane. FINDINGS: Vertebra: Homogeneous signal. Normal alignment. Conus: Normal level and configuration. Bilateral renal cyst are seen. T12-L1: The thecal sac has a normal diameter. No evidence of disc bulge or protrusion. The neural foramina are patent bilaterally. L1-L2: There is minimal diffuse disc bulge. Significant stenosis is not seen. There is focal area o f low signal seen posterior to the right aspect of the L2 vertebral body concerning for a small infer iorly directed extruded disc component causing a minimal impression on the anterior epidural space wi thout narrowing of the thecal sac. The neural foramina are patent bilaterally. There is mild facet hy pertrophy. L2-L3: The disc demonstrates diffuse disc bulge. In addition, there appears to be a mild superimpos ed central disc protrusion. There is moderate facet hypertrophy. These changes lead to moderate narro wing of thecal sac with minimal CSF seen around the nerve roots. The neural foramina are patent bilat erally. L3-L4: There is mild diffuse disc bulge best seen on the sagittal images. There is moderate facet h ypertrophy. These changes lead to mild narrowing of the thecal sac with a small amount CSF seen aroun d the nerve roots. The neural foramina are grossly patent. L4-L5: The disc demonstrates decreased height. There is mild diffuse disc bulge. There is moderate to severe facet and ligament flavum hypertrophy. These changes lead to severe stenosis with no signif icant CSF seen around the nerve roots. The neural foramina are patent bilaterally. L5-S1: There is a mild central disc protrusion. There is moderate facet hypertrophy being worse on the left. The neural foramina are patent bilaterally. CONCLUSION: 1. Severe stenosis at the L4-L5 level. 2. Moderate stenosis at the L2-L3 level. 3. Minimal disc bulge at the L1-L2 level with a small inferiorly directed extruded disc fragment at the right side. Significant stenosis is not seen at this level. 4. No focal fluid collection is identified. Electronically signed by: Yosi Millan MD 06/08/2018 4:59 PM EST
[2018-06-08] MEDS: DAPTOmycin Inj 800 MG in Sodium Chlor 0.9% Inj 100 ML IV.SIG SCH (17:50)
--- NOTE | 2018-06-08 18:08 | MR ---
EXAM DATE: 06/08/2018 5:06 PM EST AGE/SEX: 68 years / Male INDICATIONS: Abscess. CLINICAL DATA: This is the patient's initial encounter. Patient reports that signs and symptoms have been present for 4 - 6 days and indicates a pain score of Nonresponsive. MEDICAL/SURGICAL HISTORY: Diabetes mellitus type II. Hypertension. . toe surgery. COMPARISON: No prior exams available for comparison. TECHNIQUE: Multiplanar, multisequence MRI examination was performed without contrast. FINDINGS: There is a moderate size joint effusion and moderate severity synovitis. There is considerable extra- articular edema, primarily involving the subcutaneous tissues. Other than the joint fluid, no organiz ed or drainable fluid is demonstrated. There is moderate to severe medial and mild to moderate lateral and patellofemoral compartment osteoa rthritis. Radial and oblique superior articular surface predominant degenerative tearing seen of the posterior horn and body of the medial meniscus and there is a superiorly extruded meniscal fragment along the m edial joint margin, series 4 image 14. Cruciate and collateral ligaments are intact. CONCLUSION: 1. Nonspecific joint effusion and moderate severity synovitis. Also nonspecific subcutaneous edema. Nothing organized or drainable. 2. Medial compartment predominant osteoarthritis. 3. Tears of the medial and lateral menisci as above. Electronically signed by: Yosi Bettencourt MD 06/08/2018 6:07 PM EST
[2018-06-08] MEDS: Dexmedetomidine Inj 200 MCG in Sodium Chlor 0.9% Inj 48 ML IV.CONT PRN (18:20)
[2018-06-08 19:53] LABS: Calcium 7.9 mg/dL (8.5-10.1); Carbon Dioxide 21.1 meq/L (21.0-32.0); Potassium 4.6 meq/L (3.5-5.1)
[2018-06-08 20:14] LABS: CKMB Percent 0.3 % (0.0-4.0); Creatine Kinase MB 5.6 ng/mL (0.5-3.6)
[2018-06-08] MEDS: Chlorhexidine 0.12% Oral Kit 15 ML UDC OROPHARYNG SCH (20:18)
[2018-06-08] MEDS ORDERED: Albumin Human 5% Inj 250 ML IV.SIG ONE (21:00)
[2018-06-08] MEDS ORDERED: Sodium Chloride 0.45 % Inj 1,000 ML IV.SIG ONE (21:00)
[2018-06-09] MEDS: Oral Hygiene Kit OROPHARYNG SCH ×4 (00:22→18:19)
[2018-06-09] MEDS: Insulin NovoLIN Regular Correctional Sugar Inj SQ SCH ×6 (00:22→21:37)
[2018-06-09 04:38] LABS: Baso % (Auto) 0.2 % (0.0-2.0); Eos # (Auto) 0.3 th/mm3 (0.0-0.4); Eos % (Auto) 1.9 % (0.0-4.0); Hematocrit 29.8 % (39.0-51.0); Hemoglobin 9.6 gm/dL (13.0-17.0); Lymph # (Auto) 1.3 th/mm3 (1.0-4.8); Lymph % (Auto) 9.3 % (9.0-44.0); Mean Corpuscular HGB Conc 32.2 % (32.0-36.0); Mean Corpuscular Hemoglobin 29.5 pg (27.0-34.0); Mean Corpuscular Volume 91.5 fL (80.0-100.0); Mean Platelet Volume 9.9 fL (7.0-11.0); Mono # (Auto) 0.9 th/mm3 (0.0-0.9); Mono % (Auto) 6.7 % (0.0-8.0); Neut # (Auto) 11.4 th/mm3 (1.8-7.7); Neut % (Auto) 81.9 % (16.0-70.0); Platelet Count 166 th/mm3 (150-450); Red Blood Count 3.26 mil/mm3 (4.50-5.90); White Blood Count 13.9 th/mm3 (4.0-11.0)
[2018-06-09 05:04] LABS: Albumin 2.1 g/dL (3.4-5.0); Calcium 7.3 mg/dL (8.5-10.1); Carbon Dioxide 20.6 meq/L (21.0-32.0); Potassium 4.6 meq/L (3.5-5.1); Total Protein 6.2 g/dL (6.4-8.2)
[2018-06-09] MEDS: Mupirocin 2% Nasal Oint Topical Syringe EACH NARE SCH ×2 (08:05→21:43)
[2018-06-09] MEDS: Chlorhexidine 0.12% Oral Kit 15 ML UDC OROPHARYNG SCH ×2 (08:05→21:42)
[2018-06-09] MEDS: Famotidine PF Inj 20 MG/2 ML Vial IV.PUSH SCH ×2 (08:06→21:43)
[2018-06-09] MEDS: Senna/Docusate Sodium 8.6/50 MG Tablet PO SCH ×2 (08:06→21:43)
[2018-06-09] MEDS: Sodium Chloride 0.45 % Inj 1,000 ML IV.CONT SCH ×4 (08:07→21:42)
--- NOTE | 2018-06-09 09:51 | P.PNID ---
Subjective Remarks: Patient is a 68-year-old male, brought into the hospital initially at [facility] for evaluation of weakness and slurred speech. It apparently has been present for several days. He was found on the floor of his mobile home. At [facility] he was found to be febrile, WBC up to 21,000, urinalysis with pyuria, creatinine 2.33, and lactic acid was elevated. CT of the head showed focal hemorrhage in the posterior fossa. Patient was transferred to [facility] for neurosurgical evaluation. Patient since admission has had elevated temperature. His blood cultures done on admission are now reported as growing gram-positive cocci, MRSA. His urine culture is also growing MRSA. On evaluation in the intensive care unit, he is awake, and interactive. He looks slightly tachypneic at rest and and on nasal O2. He has some confusion but mostly his oriented. His chest x-ray is normal. Echo is showing calcification in the aortic valve. No vegetations seen. Infectious disease consultation has been requested to assist with evaluation and treatment of patient with MRSA bacteremia. Notes reviewed D/W Dr Sivakumar Tinoco ([facility]) Intubated BP ok Febrile Sedated L knee MRI with nono-specific effusion (non-contrast) Spine MRI, no fluid collection seen Creatinine continues to rise, making urine CXR 06/08 - negative UC with GNR MOre (+) BC today CT A/P - no abscess Head MRA - no aneurysm All BC with MRSA, Vanco DARYL 1 - BC 06/03-06/08 Echo mild MR and AI; dense calcification of the AV Cardiology notes reviewed On Cubicin Cefepime started for GNR in UC Antibiotics: Cubicin Cefepime Lines: PIV Past Medical History: Diabetes History of MRSA infection Onset Date: ~06/03/18 Hypertension Obesity UTI (urinary tract infection) Allergies/Adverse Reactions: Allergies No Known Allergies Allergy (Verified 06/03/18 01:32) Objective Vital Signs 06/08/18 10:00 06/08/18 11:00 06/08/18 12:00 Temperature 98.8 F Pulse Rate 88 76 73 Respiratory Rate 37 H 37 H 15 Blood Pressure 122/60 123/54 L 107/53 L Pulse Oximetry 97 98 97 06/08/18 13:00 06/08/18 14:00 06/08/18 15:00 Temperature Pulse Rate 76 67 77 Respiratory Rate 17 25 H 30 H Blood Pressure 106/54 L 116/59 L 123/71 Pulse Oximetry 99 98 100 06/08/18 17:45 06/08/18 18:00 06/08/18 18:08 Temperature 99.5 F Pulse Rate 93 H 90 89 Respiratory Rate 31 H 31 H 32 H Blood Pressure 96/54 L 95/54 L 93/51 L Pulse Oximetry 98 99 99 06/08/18 18:11 06/08/18 18:14 06/08/18 18:17 Temperature Pulse Rate 86 82 83 Respiratory Rate 31 H 32 H 32 H Blood Pressure 94/55 L 101/49 L 105/49 L Pulse Oximetry 99 99 99 06/08/18 18:20 06/08/18 18:23 06/08/18 18:26 Temperature Pulse Rate 83 83 82 Respiratory Rate 32 H 32 H 33 H Blood Pressure 93/55 L 94/44 L 94/51 L Pulse Oximetry 99 99 99 06/08/18 18:29 06/08/18 18:45 06/08/18 18:48 Temperature Pulse Rate 83 88 82 Respiratory Rate 33 H 33 H 34 H Blood Pressure 96/46 L 80/49 L 87/45 L Pulse Oximetry 99 100 100 06/08/18 19:00 06/08/18 19:15 06/08/18 19:30 Temperature Pulse Rate 85 83 78 Respiratory Rate 33 H 33 H 33 H Blood Pressure 94/50 L 99/50 L 93/45 L Pulse Oximetry 100 100 100 06/08/18 19:45 06/08/18 19:49 06/08/18 20:00 Temperature 103.3 F H Pulse Rate 77 73 Respiratory Rate 33 H 32 H 30 H Blood Pressure 98/46 L 91/46 L Pulse Oximetry 100 99 06/08/18 20:04 06/08/18 20:15 06/08/18 20:19 Temperature Pulse Rate 73 75 Respiratory Rate 30 H 30 H 31 H Blood Pressure 72/40 L Pulse Oximetry 100 99 06/08/18 20:30 06/08/18 20:45 06/08/18 21:00 Temperature Pulse Rate 76 75 76 Respiratory Rate 31 H 33 H 33 H Blood Pressure 84/49 L 86/54 L 84/51 L Pulse Oximetry 99 99 99 06/08/18 21:15 06/08/18 21:30 06/08/18 21:45 Temperature Pulse Rate 70 68 67 Respiratory Rate 32 H 32 H 29 H Blood Pressure 82/45 L 81/48 L 82/49 L Pulse Oximetry 99 100 100 06/08/18 22:00 06/08/18 22:15 06/08/18 22:30 Temperature 102 F H Pulse Rate 64 82 79 Respiratory Rate 29 H 33 H 30 H Blood Pressure 82/47 L 91/54 L 100/55 L Pulse Oximetry 100 99 100 06/08/18 22:45 06/08/18 23:00 06/08/18 23:15 Temperature Pulse Rate 82 82 81 Respiratory Rate 30 H 30 H 31 H Blood Pressure 103/55 L 105/51 L 102/50 L Pulse Oximetry 100 100 100 06/08/18 23:30 06/08/18 23:45 06/09/18 00:00 Temperature 101.9 F H Pulse Rate 88 86 85 Respiratory Rate 31 H 31 H 35 H Blood Pressure 109/55 L 103/50 L 116/59 L Pulse Oximetry 100 100 100 06/09/18 00:15 06/09/18 00:30 06/09/18 00:45 Temperature Pulse Rate 73 82 80 Respiratory Rate 31 H 31 H 31 H Blood Pressure 106/58 L 100/56 L 100/55 L Pulse Oximetry 100 100 100 06/09/18 01:00 06/09/18 01:13 06/09/18 01:15 Temperature Pulse Rate 79 80 Respiratory Rate 29 H 29 H 29 H Blood Pressure 100/59 L 106/57 L Pulse Oximetry 100 100 100 06/09/18 01:30 06/09/18 01:45 06/09/18 02:00 Temperature 100.8 F H Pulse Rate 76 80 88 Respiratory Rate 29 H 27 H 28 H Blood Pressure 104/56 L 114/59 L 119/59 L Pulse Oximetry 100 100 100 06/09/18 02:30 06/09/18 02:45 06/09/18 03:00 Temperature Pulse Rate 90 88 84 Respiratory Rate 30 H 31 H 29 H Blood Pressure 95/41 L 118/57 L 113/50 L Pulse Oximetry 100 100 100 06/09/18 03:15 06/09/18 03:30 06/09/18 03:45 Temperature Pulse Rate 83 85 81 Respiratory Rate 29 H 30 H 30 H Blood Pressure 114/53 L 110/53 L 110/56 L Pulse Oximetry 100 100 100 06/09/18 03:54 06/09/18 04:00 06/09/18 04:15 Temperature 101.6 F H Pulse Rate 91 H 87 91 H Respiratory Rate 30 H 32 H 34 H Blood Pressure 114/50 L 102/55 L Pulse Oximetry 100 100 06/09/18 04:26 06/09/18 04:30 06/09/18 04:33 Temperature Pulse Rate 92 H Respiratory Rate 33 H 32 H 31 H Blood Pressure 133/61 Pulse Oximetry 100 100 06/09/18 04:45 06/09/18 05:00 06/09/18 05:15 Temperature Pulse Rate 95 H 85 88 Respiratory Rate 55 H 27 H 29 H Blood Pressure 125/60 107/58 L 118/59 L Pulse Oximetry 100 100 99 06/09/18 05:30 06/09/18 05:45 06/09/18 06:00 Temperature Pulse Rate 87 87 85 Respiratory Rate 29 H 29 H 28 H Blood Pressure 125/60 119/58 L 125/61 Pulse Oximetry 99 98 99 06/09/18 07:57 06/09/18 08:01 Temperature Pulse Rate 79 Respiratory Rate 28 H 28 H Blood Pressure Pulse Oximetry 100 Intake & Output 06/08/18 06/09/18 06/09/18 18:59 06:59 18:59 Intake Total 4163 / 4163 3555 / 3555 1100 / 1100 Output Total 650 / 650 650 / 650 Balance 3513 / 3513 2905 / 2905 1100 / 1100 Weight 141.1 kg Intake: IV 3785 / 3785 3555 / 3555 1100 / 1100 D5W Inj 1,000 ML @ 75 mls/hr IV 1000 / 1000 .CONT .[id number] JAC[facility] Rx#:[id number] LR 1000 mL Inj 1,000 ML @ 75 260 / 260 mls/hr IV.CONT .[id number] JACOB Rx# :[id number] 1/2 Normal Saline Inj 1,000 ML 1000 / 1000 1000 / 1000 @ 125 mls/hr IV.CONT .Q8H JAC[facility] Rx#:[id number] Ofirmev Inj 1,000 mg In 100 ml 200 / 200 @ 400 mls/hr IV.SIG Q8H PRN Rx# :[id number] Buminate 5% Inj 250 ML @ 250 250 / 250 mls/hr IV.SIG ONCE ONE Rx#: [id number] Alburx 5% Inj 500 ML @ 250 mls/ 500 / 500 hr IV.SIG ONCE ONE Rx#:[id number] Maxipime Inj 1,000 MG In NS Inj 100 / 100 100 ML @ 200 mls/hr IV.SIG Q12H [facility] Rx#:[id number] Cubicin Inj 800 MG In NS Inj 100 / 100 100 ML @ 200 mls/hr IV.SIG Q48H [facility] Rx#:[id number] D5W Inj 1,000 ML @ 75 mls/hr IV 300 / 300 .SIG .[id number] [facility] Rx#:[id number] NS Inj 1,000 ML @ 999 mls/hr IV 1000 / 1000 1000 / 1000 .SIG BOLUS ONE Rx#:[id number] 1/2 Normal Saline Inj 1,000 ML 1000 / 1000 @ Wide Open IV.SIG BOLUS ONE Rx #:[id number] Keppra Inj 500 MG In NS Inj 100 105 / 105 105 / 105 ML @ 400 mls/hr IV.SIG Q12H [facility] Rx#:[id number] Tube Feeding 68 / 68 Water Bolus Amount 250 / 250 Other 60 / 60 Output: Urine Amount (Catheter) 650 / 650 650 / 650 Indwelling Urethral Catheter 650 / 650 650 / 650 Other: Date of Last Bowel Movement 06/02/18 06/02/18 # Bowel Movements 0 06/08/18 14:00 Blood - Peripheral Aerobic Blood Culture - Preliminary gram positive cocci 06/08/18 14:00 Blood - Peripheral Anaerobic Blood Culture - Pending 06/08/18 05:54 Blood - Peripheral Aerobic Blood Culture - Preliminary gram positive cocci 06/08/18 05:54 Blood - Peripheral Anaerobic Blood Culture - Pending 06/07/18 12:49 Catheterized Urine Urine Culture - Preliminary gram negative rods 06/08/18 18:30 Sputum - Endotracheal Gram Stain - Final 06/08/18 18:30 Sputum - Endotracheal Sputum Culture - Pending 06/07/18 14:19 Blood - Peripheral Aerobic Blood Culture - Preliminary gram positive cocci 06/07/18 14:19 Blood - Peripheral Anaerobic Blood Culture - Preliminary No growth in 1 day 06/06/18 04:13 Blood - Peripheral Aerobic Blood Culture - Final S. aureus MRSA 06/06/18 04:13 Blood - Peripheral Anaerobic Blood Culture - Preliminary No growth in 2 days 06/04/18 16:45 Blood - Peripheral Aerobic Blood Culture - Final S. aureus MRSA 06/04/18 16:45 Blood - Peripheral Anaerobic Blood Culture - Preliminary No growth in 4 days 06/04/18 16:45 Blood - Peripheral Aerobic Blood Culture - Final S. aureus MRSA 06/04/18 16:45 Blood - Peripheral Anaerobic Blood Culture - Preliminary No growth in 4 days 06/05/18 04:07 Blood - Peripheral Aerobic Blood Culture - Final S. aureus MRSA 06/05/18 04:07 Blood - Peripheral Anaerobic Blood Culture - Final S. aureus MRSA 06/03/18 05:20 Blood - Peripheral Aerobic Blood Culture - Final S. aureus MRSA 06/03/18 05:20 Blood - Peripheral Anaerobic Blood Culture - Final S. aureus MRSA 06/03/18 07:27 Blood - Peripheral Aerobic Blood Culture - Final S. aureus MRSA 06/03/18 07:27 Blood - Peripheral Anaerobic Blood Culture - Final S. aureus MRSA Lab - Hematology Results 06/08/18 06/09/18 05:54 04:01 WBC 15.4 H 13.9 H RBC 3.88 L 3.26 L Hgb 11.4 L 9.6 L Hct 34.8 L 29.8 L MCV 89.7 91.5 MCH 29.4 29.5 MCHC 32.8 32.2 RDW 17.2 18.0 H Plt Count 219 166 MPV 9.9 9.9 Neut % (Auto) 77.1 H 81.9 H Lymph % (Auto) 11.8 9.3 [place] % (Auto) 9.7 H 6.7 Eos % (Auto) 0.9 1.9 Baso % (Auto) 0.5 0.2 Neut # (Auto) 11.9 H 11.4 H Lymph # (Auto) 1.8 1.3 [place] # (Auto) 1.5 H 0.9 Eos # (Auto) 0.1 0.3 Baso # (Auto) 0.1 0.0 WBC Differential . . Differential Comment Auto diff final Auto diff final Lab - Chemistry Results 06/07/18 06/07/18 06/07/18 13:23 14:19 21:27 Sodium 163 H* Potassium 4.2 Chloride 137 H Carbon Dioxide 20.2 L Anion Gap 6 BUN 42 H Creatinine 1.64 H Estimated GFR 42 L POC Glucose 168 H 139 H Random Glucose 149 H Lactic Acid Calcium 8.5 D Calcium Adj for Albumin Total Bilirubin 1.3 H AST 74 H ALT 42 Alkaline Phosphatase 56 Total Creatine Kinase CK-MB (CK-2) CK-MB (CK-2) % B-Natriuretic Peptide Total Protein 6.6 Albumin 1.9 L 06/08/18 06/08/18 06/08/18 01:24 05:04 05:54 Sodium 163 H* Potassium 4.7 Chloride 134 H Carbon Dioxide 22.0 Anion Gap 7 BUN 69 H Creatinine 2.86 H Estimated GFR 22 L POC Glucose 187 H 177 H Random Glucose 190 H Lactic Acid Calcium 8.2 L Calcium Adj for Albumin Total Bilirubin 0.7 AST 85 H ALT 45 Alkaline Phosphatase 64 Total Creatine Kinase CK-MB (CK-2) CK-MB (CK-2) % B-Natriuretic Peptide Total Protein 6.5 Albumin 1.9 L 06/08/18 06/08/18 06/08/18 05:54 08:37 12:15 Sodium Cancelled Potassium Cancelled Chloride Cancelled Carbon Dioxide Cancelled Anion Gap Cancelled BUN Cancelled Creatinine Cancelled Estimated GFR Cancelled POC Glucose 214 H 190 H Random Glucose Cancelled Lactic Acid Calcium Cancelled Calcium Adj for Albumin Cancelled Total Bilirubin Cancelled AST Cancelled ALT Cancelled Alkaline Phosphatase Cancelled Total Creatine Kinase CK-MB (CK-2) CK-MB (CK-2) % B-Natriuretic Peptide Total Protein Cancelled Albumin Cancelled 06/08/18 06/08/18 06/08/18 18:46 18:46 18:46 Sodium Cancelled 163 H* Potassium 4.6 Chloride 130 H Carbon Dioxide 21.1 Anion Gap 12 BUN 78 H Creatinine 3.26 H Estimated GFR 19 L POC Glucose Random Glucose 154 H Lactic Acid 2.2 H Calcium 7.9 L Calcium Adj for Albumin Total Bilirubin AST ALT Alkaline Phosphatase Total Creatine Kinase 2057 H CK-MB (CK-2) 5.6 H CK-MB (CK-2) % 0.3 B-Natriuretic Peptide Total Protein Albumin 06/08/18 06/08/18 06/09/18 20:30 23:55 04:01 Sodium 160 H* Potassium 4.6 Chloride 131 H Carbon Dioxide 20.6 L Anion Gap 8 BUN 81 H Creatinine 3.50 H Estimated GFR 17 L POC Glucose 136 H 166 H Random Glucose 163 H Lactic Acid Calcium 7.3 L* Calcium Adj for Albumin 8.8 Total Bilirubin 0.7 AST 116 H ALT 46 Alkaline Phosphatase 54 Total Creatine Kinase CK-MB (CK-2) CK-MB (CK-2) % B-Natriuretic Peptide Total Protein 6.2 L Albumin 2.1 L 06/09/18 06/09/18 06/09/18 04:01 04:28 07:45 Sodium Potassium Chloride Carbon Dioxide Anion Gap BUN Creatinine Estimated GFR POC Glucose 195 H 154 H Random Glucose Lactic Acid Calcium Calcium Adj for Albumin Total Bilirubin AST ALT Alkaline Phosphatase Total Creatine Kinase CK-MB (CK-2) CK-MB (CK-2) % B-Natriuretic Peptide 89 Total Protein Albumin Imaging: ITS Impressions Abdomen/Bladder Ultrasound 06/03/18 00:00 CONCLUSION: 1. Bilateral simple cysts within the kidneys as above. 2. No findings to indicate renal obstruction. 3. Renal cortex appears of adequate thickness. Abdomen/Pelvis CT 06/04/18 00:00 CONCLUSION: 1. The second and third portions of the duodenum appear mildly prominent and indistinct with mild surrounding inflammatory change extending into the adjacent mesentery. The findings are concerning for duodenitis. 2. Bilateral renal cysts. 3. Minimal pleural effusions and atelectasis in the lung bases. 4. The gallbladder is unremarkable. Head MRI 06/04/18 00:00 CONCLUSION: 1. There is a focal stable area of subacute hemorrhage adjacent to the posterior right midbrain measuring approximately 1.5 cm in length. This is not significantly changed in its overall appearance compared to the recent CT scan of the brain. No definite new areas of hemorrhage are demonstrated. 2. Stable diffuse bilateral cortical atrophy. Head MRA 06/04/18 00:00 CONCLUSION: 1. Atherosclerotic changes involving the left M2 segment. 2. No aneurysm or vascular abnormality identified. 3. Visualization of the known blood products along the right side of the brainstem. Neck MRA 06/04/18 00:00 CONCLUSION: 1. Unremarkable MRA of the carotids. Percent stenosis is calculated using the diameter of the stenotic region over the diameter of the normal distal internal carotid artery Abdomen X-Ray 06/05/18 00:00 CONCLUSION: Feeding tube distal tip is in the gastric body. Knee X-Ray 06/06/18 00:00 CONCLUSION: 1. Moderate suprapatellar effusion. 2. Prominent degenerative osteoarthritis. Head CT 06/08/18 00:00 CONCLUSION: 1. Resolving subarachnoid hemorrhage. No acute hemorrhage is identified. . Knee MRI 06/08/18 07:08 CONCLUSION: 1. Nonspecific joint effusion and moderate severity synovitis. Also nonspecific subcutaneous edema. Nothing organized or drainable. 2. Medial compartment predominant osteoarthritis. 3. Tears of the medial and lateral menisci as above. Cervical Spine MRI 06/08/18 07:09 CONCLUSION: 1. Increased signal anterior to the C6-C7 disc level and between the prominent anterior marginal osteophytes. The anterior longitudinal ligament is not seen. This could be the sequela of an injury in this region. The remaining aspect of the disc is intact. The vertebral bodies demonstrate normal signal. Prevertebral soft tissue swelling is not seen. This could be chronic. Fluid resembling a pseudarthrosis can also develop between osteophytes potentially. The remaining soft tissues appear intact. 2. Mild left lateral recess disc protrusion at the C2-C3 level. 3. Mild central disc protrusion at the C3-C4 level. 4. Mild disc bulge at the C5-C6 level and minimal disc bulge at the C4-C5 level. 5. Scattered neural foraminal narrowing as described above. Lumbar Spine MRI 06/08/18 07:09 CONCLUSION: 1. Severe stenosis at the L4-L5 level. 2. Moderate stenosis at the L2-L3 level. 3. Minimal disc bulge at the L1-L2 level with a small inferiorly directed extruded disc fragment at the right side. Significant stenosis is not seen at this level. 4. No focal fluid collection is identified. Thoracic Spine MRI 06/08/18 07:09 CONCLUSION: 1. Limited, noncontrast examination with no evidence of abscess. 2. Small posterior central protrusion at T5-6 with mild flattening of the anterior cord. 3. Posterior disc bulge at T6-7 with mild flattening of the anterior thecal sac. Chest X-Ray 06/08/18 11:16 CONCLUSION: A port is not seen. No acute cardiopulmonary process. Physical Exam: GENERAL: Sedated on the vent, not in respiratory distress. SKIN: Warm and dry. No generalized rash, no ecchymoses and no evidence of embolic lesions. HEAD: Atraumatic. Normocephalic. No temporal wasting, or tenderness. EYES: [place] conjunctiva. No petechia or hemorrhage. Pupils equal, round and reactive to light. No scleral icterus. No injection or drainage. EARS, NOSE AND THROAT: Nose without bleeding or purulent nasal discharge. Orally intubated NECK: Trachea midline. Supple and not tender, no meningeal signs CARDIOVASCULAR: Regular rate and rhythm. No murmurs, rubs or gallops heard RESPIRATORY: Clear to auscultation. Breath sounds equal bilaterally. No rales , wheezing or rhonchi ABDOMEN: Soft, obese, globular, distended bowel sounds present and normoactive. EXTREMITIES: No clubbing, cyanosis, or edema. No calf tenderness. Seems to have edis knee effusion NEUROLOGICAL: Sedated. PSYCHIATRIC: Unable to assess. LINE: No evidence of infection : [place] in place, with sediment Assessment and Plan - Plan Impression MRSA sepsis on presentation, worrisome for IE - MRSA not a common pathogen - so far no obvious source for the MRSA, and very likely endovascular - BC still (+) UTI - first UC with MRSA; now with GNR Hemorrhage posterior fossa - no aneurysm: MRA negative for mycotic aneurism Hx DM, HTN, Obesity Renal insufficiency, worse Fevers, persistent Respiratory failure - CXR clear Recommendation Repeat blood culture to document clearing Continue Cubicin at least to help and hope for quicker sterilization of blood Cardiology input on LAURIE noted Continue Cefepime Follow C/S Monitor progress Follow temdaniel D/W Dr Sivakumar Tinoco ([facility])
--- NOTE | 2018-06-09 10:33 | P.PNCC ---
Subjective Subjective Remarks/Hospital Course: 06/03: Patient is a 68-year-old male with past medical history significant for type 2 diabetes, hypertension, morbid obesity who presented to the [facility] emergency department with weakness and slurred speech. Symptoms present for 2 days, apparently he was found on the floor of his mobile home. He was noted to have high fever at the [facility] his WBC count was 21.3 UA was positive. His sodium was 134 BUN 50 with a creatinine of 2.33 bicarb was 16 lactic acid was 6.8. CPK more than 3000 at the outside hospital. A CT of the head showed focal hemorrhage into the right quadrigeminal plate cistern. Dr. Hopkins was contacted who accepted the patient and requested admission to critical care. Patient was accepted to [facility] at [address] Deluca evaluated the patient in the [facility], he is lying in the bed. Slightly tachypneic moderate distress. Patient is oriented to place and person. CT of the head repeated here at [place] showed hemorrhage along the posterior aspect of the brainstem measuring up to 2.8 cm in maximal diameter. Mild mass effect on the brainstem. No hydrocephalus. I have started the patient on Cardene infusion for tight blood pressure control. Zosyn for UTI. 2% saline will be started to keep sodium above 150. Avoid mannitol due to renal failure. Keppra for seizure prophylaxis. I am unable to find coags but platelet count was normal. 06/04: MRSA bacteremia ob blood cultures drawn on admission. Currently on precedex, on room air. Awake, follows commands, speech, unintelligible. Started on IV vanc. ID consulted as concern for septic emboli/ endocarditis as cause for brainstem bleed. 06/05: 48 hours following a mid brain spontaneous hemorrhage complicated by numerous MRSA blood cultures. Blood pressure acceptably well controlled. Fever pattern persists. Patient tolerating extubation and protecting airway adequately. Taper completely off Precedex. Serum osmolality acceptably concentrated. 06/06: Serum osmolality acceptable, will allow sodium to drift back into the lower 150s now. Patient is alert and interactive. He moves 4 limbs spontaneously. Episodic fevers to 102+. We will continue with infectious disease workup for source of bacteremia. Endocarditis remains high on the list of possibilities. 06/07: Awake, alert, following commands. Speech very slurred however responds appropriately. Slight disorientation. Thought he was in [place]. Knows he is in the hospital. Complains of back pain. 06/08: Drowsy, arousable, tachypneic. Sodium up to 163, started on D5W and free water. Creatinine up. Tolerating tube feeds. Awaiting MRI. Will need LAURIE. Will need intubation probably for airway and in order to transport for MRI and LAURIE. 06/09: Patient intubated and placed on mechanical ventilation on 06/09. Dr. Hopkins has cleared patient for LAURIE/anticoagulation/valve surgery if needed. We are awaiting LAURIE for further evaluation of MRSA bacteremia by cardiology to determine source. Orthopedics evaluating left knee synovitis/effusion/meniscal tear Objective Vital Signs / I&O: Vital Signs 06/08/18 11:00 06/08/18 12:00 06/08/18 13:00 Temperature 98.8 F Pulse Rate 76 73 76 Respiratory Rate 37 H 15 17 Blood Pressure 123/54 L 107/53 L 106/54 L Pulse Oximetry 98 97 99 06/08/18 14:00 06/08/18 15:00 06/08/18 17:45 Temperature 99.5 F Pulse Rate 67 77 93 H Respiratory Rate 25 H 30 H 31 H Blood Pressure 116/59 L 123/71 96/54 L Pulse Oximetry 98 100 98 06/08/18 18:00 06/08/18 18:08 06/08/18 18:11 Temperature Pulse Rate 90 89 86 Respiratory Rate 31 H 32 H 31 H Blood Pressure 95/54 L 93/51 L 94/55 L Pulse Oximetry 99 99 99 06/08/18 18:14 06/08/18 18:17 06/08/18 18:20 Temperature Pulse Rate 82 83 83 Respiratory Rate 32 H 32 H 32 H Blood Pressure 101/49 L 105/49 L 93/55 L Pulse Oximetry 99 99 99 06/08/18 18:23 06/08/18 18:26 06/08/18 18:29 Temperature Pulse Rate 83 82 83 Respiratory Rate 32 H 33 H 33 H Blood Pressure 94/44 L 94/51 L 96/46 L Pulse Oximetry 99 99 99 06/08/18 18:45 06/08/18 18:48 06/08/18 19:00 Temperature Pulse Rate 88 82 85 Respiratory Rate 33 H 34 H 33 H Blood Pressure 80/49 L 87/45 L 94/50 L Pulse Oximetry 100 100 100 06/08/18 19:15 06/08/18 19:30 06/08/18 19:45 Temperature Pulse Rate 83 78 77 Respiratory Rate 33 H 33 H 33 H Blood Pressure 99/50 L 93/45 L 98/46 L Pulse Oximetry 100 100 100 06/08/18 19:49 06/08/18 20:00 06/08/18 20:04 Temperature 103.3 F H Pulse Rate 73 Respiratory Rate 32 H 30 H 30 H Blood Pressure 91/46 L Pulse Oximetry 99 06/08/18 20:15 06/08/18 20:19 06/08/18 20:30 Temperature Pulse Rate 73 75 76 Respiratory Rate 30 H 31 H 31 H Blood Pressure 72/40 L 84/49 L Pulse Oximetry 100 99 99 06/08/18 20:45 06/08/18 21:00 06/08/18 21:15 Temperature Pulse Rate 75 76 70 Respiratory Rate 33 H 33 H 32 H Blood Pressure 86/54 L 84/51 L 82/45 L Pulse Oximetry 99 99 99 06/08/18 21:30 06/08/18 21:45 06/08/18 22:00 Temperature 102 F H Pulse Rate 68 67 64 Respiratory Rate 32 H 29 H 29 H Blood Pressure 81/48 L 82/49 L 82/47 L Pulse Oximetry 100 100 100 06/08/18 22:15 06/08/18 22:30 06/08/18 22:45 Temperature Pulse Rate 82 79 82 Respiratory Rate 33 H 30 H 30 H Blood Pressure 91/54 L 100/55 L 103/55 L Pulse Oximetry 99 100 100 06/08/18 23:00 06/08/18 23:15 06/08/18 23:30 Temperature Pulse Rate 82 81 88 Respiratory Rate 30 H 31 H 31 H Blood Pressure 105/51 L 102/50 L 109/55 L Pulse Oximetry 100 100 100 06/08/18 23:45 06/09/18 00:00 06/09/18 00:15 Temperature 101.9 F H Pulse Rate 86 85 73 Respiratory Rate 31 H 35 H 31 H Blood Pressure 103/50 L 116/59 L 106/58 L Pulse Oximetry 100 100 100 06/09/18 00:30 06/09/18 00:45 06/09/18 01:00 Temperature Pulse Rate 82 80 79 Respiratory Rate 31 H 31 H 29 H Blood Pressure 100/56 L 100/55 L 100/59 L Pulse Oximetry 100 100 100 06/09/18 01:13 06/09/18 01:15 06/09/18 01:30 Temperature Pulse Rate 80 76 Respiratory Rate 29 H 29 H 29 H Blood Pressure 106/57 L 104/56 L Pulse Oximetry 100 100 100 06/09/18 01:45 06/09/18 02:00 06/09/18 02:30 Temperature 100.8 F H Pulse Rate 80 88 90 Respiratory Rate 27 H 28 H 30 H Blood Pressure 114/59 L 119/59 L 95/41 L Pulse Oximetry 100 100 100 06/09/18 02:45 06/09/18 03:00 06/09/18 03:15 Temperature Pulse Rate 88 84 83 Respiratory Rate 31 H 29 H 29 H Blood Pressure 118/57 L 113/50 L 114/53 L Pulse Oximetry 100 100 100 06/09/18 03:30 06/09/18 03:45 06/09/18 03:54 Temperature Pulse Rate 85 81 91 H Respiratory Rate 30 H 30 H 30 H Blood Pressure 110/53 L 110/56 L Pulse Oximetry 100 100 06/09/18 04:00 06/09/18 04:15 06/09/18 04:26 Temperature 101.6 F H Pulse Rate 87 91 H Respiratory Rate 32 H 34 H 33 H Blood Pressure 114/50 L 102/55 L Pulse Oximetry 100 100 100 06/09/18 04:30 06/09/18 04:33 06/09/18 04:45 Temperature Pulse Rate 92 H 95 H Respiratory Rate 32 H 31 H 55 H Blood Pressure 133/61 125/60 Pulse Oximetry 100 100 06/09/18 05:00 06/09/18 05:15 06/09/18 05:30 Temperature Pulse Rate 85 88 87 Respiratory Rate 27 H 29 H 29 H Blood Pressure 107/58 L 118/59 L 125/60 Pulse Oximetry 100 99 99 06/09/18 05:45 06/09/18 06:00 06/09/18 07:57 Temperature Pulse Rate 87 85 Respiratory Rate 29 H 28 H 28 H Blood Pressure 119/58 L 125/61 Pulse Oximetry 98 99 100 06/09/18 08:01 Temperature Pulse Rate 79 Respiratory Rate 28 H Blood Pressure Pulse Oximetry Intake & Output 06/08/18 06/09/18 06/09/18 18:59 06:59 18:59 Intake Total 4163 / 4163 3555 / 3555 1100 / 1100 Output Total 650 / 650 650 / 650 Balance 3513 / 3513 2905 / 2905 1100 / 1100 Weight 141.1 kg Intake: IV 3785 / 3785 3555 / 3555 1100 / 1100 D5W Inj 1,000 ML @ 75 mls/hr IV 1000 / 1000 .CONT .[id number] JACOB Rx#:[id number] LR 1000 mL Inj 1,000 ML @ 75 260 / 260 mls/hr IV.CONT .[id number] JACOB Rx# :[id number] 1/2 Normal Saline Inj 1,000 ML 1000 / 1000 1000 / 1000 @ 125 mls/hr IV.CONT .Q8H JACOB Rx#:[id number] Ofirmev Inj 1,000 mg In 100 ml 200 / 200 @ 400 mls/hr IV.SIG Q8H PRN Rx# :[id number] Buminate 5% Inj 250 ML @ 250 250 / 250 mls/hr IV.SIG ONCE ONE Rx#: [id number] Alburx 5% Inj 500 ML @ 250 mls/ 500 / 500 hr IV.SIG ONCE ONE Rx#:[id number] Maxipime Inj 1,000 MG In NS Inj 100 / 100 100 ML @ 200 mls/hr IV.SIG Q12H JACOB Rx#:[id number] Cubicin Inj 800 MG In NS Inj 100 / 100 100 ML @ 200 mls/hr IV.SIG Q48H JACOB Rx#:[id number] D5W Inj 1,000 ML @ 75 mls/hr IV 300 / 300 .SIG .[id number] JACOB Rx#:[id number] NS Inj 1,000 ML @ 999 mls/hr IV 1000 / 1000 1000 / 1000 .SIG BOLUS ONE Rx#:[id number] 1/2 Normal Saline Inj 1,000 ML 1000 / 1000 @ Wide Open IV.SIG BOLUS ONE Rx #:[id number] Keppra Inj 500 MG In NS Inj 100 105 / 105 105 / 105 ML @ 400 mls/hr IV.SIG Q12H JACOB Rx#:[id number] Tube Feeding 68 / 68 Water Bolus Amount 250 / 250 Other 60 / 60 Output: Urine Amount (Catheter) 650 / 650 650 / 650 Indwelling Urethral Catheter 650 / 650 650 / 650 Other: Date of Last Bowel Movement 06/02/18 06/02/18 # Bowel Movements 0 Result Diagrams: 06/09/18 04:01 06/09/18 04:01 Imaging: Impressions Head CT 06/08/18 00:00 CONCLUSION: 1. Resolving subarachnoid hemorrhage. No acute hemorrhage is identified. . Knee MRI 06/08/18 07:08 CONCLUSION: 1. Nonspecific joint effusion and moderate severity synovitis. Also nonspecific subcutaneous edema. Nothing organized or drainable. 2. Medial compartment predominant osteoarthritis. 3. Tears of the medial and lateral menisci as above. Cervical Spine MRI 06/08/18 07:09 CONCLUSION: 1. Increased signal anterior to the C6-C7 disc level and between the prominent anterior marginal osteophytes. The anterior longitudinal ligament is not seen. This could be the sequela of an injury in this region. The remaining aspect of the disc is intact. The vertebral bodies demonstrate normal signal. Prevertebral soft tissue swelling is not seen. This could be chronic. Fluid resembling a pseudarthrosis can also develop between osteophytes potentially. The remaining soft tissues appear intact. 2. Mild left lateral recess disc protrusion at the C2-C3 level. 3. Mild central disc protrusion at the C3-C4 level. 4. Mild disc bulge at the C5-C6 level and minimal disc bulge at the C4-C5 level. 5. Scattered neural foraminal narrowing as described above. Lumbar Spine MRI 06/08/18 07:09 CONCLUSION: 1. Severe stenosis at the L4-L5 level. 2. Moderate stenosis at the L2-L3 level. 3. Minimal disc bulge at the L1-L2 level with a small inferiorly directed extruded disc fragment at the right side. Significant stenosis is not seen at this level. 4. No focal fluid collection is identified. Thoracic Spine MRI 06/08/18 07:09 CONCLUSION: 1. Limited, noncontrast examination with no evidence of abscess. 2. Small posterior central protrusion at T5-6 with mild flattening of the anterior cord. 3. Posterior disc bulge at T6-7 with mild flattening of the anterior thecal sac. Chest X-Ray 06/08/18 11:16 CONCLUSION: A port is not seen. No acute cardiopulmonary process. Objective Remarks: GENERAL: 68-year-old male lying in ICU bed , encephalopathic, orally intubated on mechanical ventilation SKIN: Focused skin assessment warm/dry. HEAD: Atraumatic. Normocephalic. EYES: Pupils equal and round. No scleral icterus. No injection or drainage. ENT: No nasal bleeding or discharge. ET tube in place, oral cavity dry. Trachea midline. CARDIOVASCULAR: Normal S1-S2. No murmurs. Regular rate and rhythm. No venous distention. RESPIRATORY: Orally intubated on mechanical ventilation, air entry decreased bilaterally at bases, few rhonchi, no adventitious sounds GASTROINTESTINAL: Abdomen soft, non-tender, nondistended. BS present. No guarding. MUSCULOSKELETAL: Warm, well perfused. NEUROLOGICAL: Encephalopathic, Pupils equal 3mm, reactive, orally intubated on mechanical ventilation. Not responding to commands. Minimal withdrawal to pain. Assessment and Plan - Problem List (1) 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 Status: Acute (2) Encephalopathy acute Code(s): G93.40 - Encephalopathy, unspecified Status: Acute (3) Acute kidney failure Code(s): N17.9 - Acute kidney failure, unspecified Status: Acute (4) Severe sepsis Code(s): A41.9 - Sepsis, unspecified organism; R65.20 - Severe sepsis without septic shock Status: Acute (5) Metabolic acidemia Code(s): E87.2 - Acidosis Status: Acute (6) UTI (urinary tract infection) Code(s): N39.0 - Urinary tract infection, site not specified Status: Acute (7) Lactic acidosis Code(s): E87.2 - Acidosis Status: Acute (8) Rhabdomyolysis Code(s): M62.82 - Rhabdomyolysis Status: Acute (9) Obesity Code(s): E66.9 - Obesity, unspecified Status: Chronic (10) Hypertension Code(s): I10 - Essential (primary) hypertension Status: Chronic (11) Diabetes Code(s): E11.9 - Type 2 diabetes mellitus without complications Status: Chronic - Assessment and Plan Plan: NEURO: Brainstem hemorrhage measuring up to 2.8 cm in maximal diameter, mild mass effect Acute encephalopathy -Repeat CT findings as above -Neurosurgery Dr. Hopkins consulted and following - off 2% saline. Currently on free water/D5W for Na 163. -Close neuro monitoring. MRI/MRA brain -If he develops hydrocephalus will need EVD -Placed on Keppra for seizure prophylaxis -With MRSA bacteremia suspect septic emboli with mycotic aneurism vs hypertensive bleed. -More encephalopathic, will intubate for airway protection. Propofol/ Precedex gtt for sedation following intubation with daily sedation vacation. -Discussed with neurosurgery [employer] regarding back pain. Awaiting MRI spine. Will repeat Head CT 06/08 RESP: Acute resp failure Past smoking -DuoNeb every as needed -Monitor closely for airway protection -At high risk for respiratory decompensation and requiring intubation -Mildly tachypneic -Incentive spirometry CV: Lactic acidemia Hypotension History of hypertension -Lactic acid at the outside hospital was 6.8 -Normal saline IV fluids, transthoracic echo -Continue IV fluids. Change to half NS due to hyponatremia -Hold all antihypertensives due to borderline blood pressure following intubation. - cardiology Dr. Odonnell consulted to perform LAURIE to evaluate for endocarditis GI: -NG tube in place. Tube feeds currently on hold for possible LAURIE : Acute kidney failure Rhabdomyolysis -Monitor renal function closely. Place Hays catheter. -IV fluid resuscitation and maintenance fluid as above -Check renal ultrasound -Resolving daily Renal/: -Strict intake output, monitor and replete electrolytes, follow BUN/creatinine. Worsening creatinine noted, possibly related to vancomycin and gentamicin which have been discontinued. Nephrology consult requested. Check urine sodium and creatinine. Continue Hays catheter. ID: Severe sepsis UTI -On Cubicin. Cefepime added on 06/09 for gram-negative rods in urine previously was on Zosyn which had been discontinued. -Vancomycin and gentamicin discontinued on 06/08 per ID due to worsening renal function Blood cultures positive for MRSA (10/07) -ID consulted-Dr. Rodriguez -Will definitely need LAURIE to eval for endocarditis-cardiology to schedule. Should be easier after intubation -s/p MRI left knee due to swelling -orthopedics consulted for further evaluation and possible obtaining fluid sample for culture. HEME: Leukocytosis secondary to sepsis -Monitor CBC, coags ENDO: Type 2 diabetes -Sliding scale insulin -Add basal long-acting insulin PROPH: -Bilateral lower extremity SCDs. IV famotidine. Chemical DVT prophylaxis is contraindicated LINES: -Utilize peripheral IVs, central line if needed Overall impression: Blood pressure control remains problematic and will need additional scheduled medication. Agitation appears better controlled. Bacteremia remains crucial and possibly life-threatening problem -we need to find the source. 06/08: D/W Dr. Hopkins. Called patient's son Abraham Bautista at [phone] and updated him regarding current clinical status and plan to intubate and place on mech ventilation due to concern regarding airway protection and in order to safely get imaging and possibly LAURIE and he voiced understanding and was agreeable. 06/09: Discussed with ID, discussed with Dr. Hopkins. Awaiting LAURIE. Start tube feeds after LAURIE condition critical. time spent on critical care excluding procedures: 40 min (1) Brain stem hemorrhage Qualifiers: Intracerebral hemorrhage etiology: nontraumatic
--- NOTE | 2018-06-09 10:34 | P.CONNP ---
<Azul Lam - Last Filed: 06/09/18 16:28> History of Present Illness Service: Nephrology Consult date: 06/09/18 Requesting Physician: Ulises Tinoco Reason for Consult: Acute kidney injury Primary Care Provider: UNKNOWN Chief Complaint: Altered mental status History of Present Illness: Patient is a 68-year-old male with past medical history significant for type 2 diabetes, hypertension, morbid obesity who presented to the [facility] emergency department with weakness and slurred speech. Symptoms present for 2 days, apparently he was found on the floor of his mobile home. A CT of the head showed focal hemorrhage into the right quadrigeminal plate cistern. Patient is intubated. Nephrology is consulted for acute kidney injury with creatinine of 3.50. HCO3 at 20.6, Sodium level of 160. On admission creatinine was noted to be 1.56 and started to increased on 06/08. CT on abdomen with no acute findings. Bilateral renal cysts noted. Patient may have some chronic kidney disease but baseline creatinine is not known. Review of Systems unobtainable due to endotracheal tube PMFSH - History History Provided By: Patient - Medical History Medical History: Medical History (Last Reviewed 06/08/18 @ 08:10 by Michelle Piedra [employer], CLIENT SOLUTIONS DIRECTOR) Diabetes History of MRSA infection Onset Date: ~06/03/18 Hypertension Obesity UTI (urinary tract infection) - Tobacco History Second Hand Smoke Exposure: No Tobacco Use In Past 30 Days: Yes Smoking Status: Smoker, status unknown Tobacco Type: Cigarettes - Alcohol History How Often Do You Have a Drink Containing Alcohol: Never - Substance Use History Substance History: No History of Abuse - Immunization History Tetanus Immunization: >5 Years Hx Influenza Vaccine This Season: No Medications and Allergies Allergies Allergy/AdvReac Type Severity Reaction Status Date / Time No Known Allergies Allergy Verified 06/03/18 01:32 Active Medications: Active Medications Acetaminophen (Tylenol) 650 mg PO Q6H PRN PRN Reason: PAIN 1-10 AND/OR FEVER >101F Last Admin: 06/06/18 12:05 Dose: 650 mg Al Hydroxide/Mg Hydroxide (Milk Of Magnesia Liq) 30 ml PO Q12H PRN PRN Reason: Mild Constipation Albuterol (Duoneb Neb (Prn)) 1 ampul NEB Q2HR NEB PRN PRN Reason: WHEEZING Last Admin: 06/03/18 19:44 Dose: 1 ampul Albuterol (Duoneb Neb ([facility])) 1 ampul NEB Q6HR NEB [facility] Last Admin: 06/09/18 08:07 Dose: Not Given Bisacodyl (Dulcolax Supp) 10 mg RECTAL DAILY PRN PRN Reason: SEVERE CONSITIPATION Chlorhexidine Gluconate (Peridex 0.12% Oral Kit) 15 ml OROPHARYNG BID@0800, 2000 [facility] Last Admin: 06/09/18 08:05 Dose: 15 ml Clonidine HCl (Catapres) 0.1 mg PO Q6H PRN PRN Reason: SBP>160, DBP>90 Dextrose (D50w Vial) 50 ml IV.PUSH UNSCH PRN PRN Reason: PER HYPOGLYCEMIA PROTOCOL Famotidine (Pepcid Pf Inj) 20 mg IV.PUSH Q12HR [facility] Last Admin: 06/09/18 08:06 Dose: 20 mg Glucagon (Glucagon Inj) 1 mg OTHER PRN PRN PRN Reason: for Hypoglycemia Protocol Levetiracetam 500 mg/ Sodium (Chloride) 105 mls @ 400 mls/hr IV.SIG Q12H [facility] Last Infusion: 06/09/18 04:49 Dose: Infused Sodium Phosphate 30 mmol/ (Sodium Chloride) 260 mls @ 42 mls/hr IV.SIG UNSCH PRN PRN Reason: For Phosphorus < 2.5 mg/dL Dexmedetomidine HCl 200 mcg/ (Sodium Chloride) 50 mls @ 6.65 mls/hr IV.CONT TITRATE PRN; Protocol PRN Reason: Per Protocol Last Titration: 06/08/18 18:51 Dose: 0.4 mcg/kg/hr, 13.3 mls/hr Acetaminophen (Ofirmev Inj) 1,000 mg in 100 mls @ 400 mls/hr IV.SIG Q8H PRN PRN Reason: FEVER > 101 F Last Infusion: 06/09/18 04:48 Dose: Infused Propofol (Diprivan 1000 Mg/100 Ml Inj) 1,000 mg in 100 mls @ 3.972 mls/hr IV.CONT TITRATE PRN; Protocol PRN Reason: Per Protocol Last Titration: 06/08/18 18:00 Dose: 0 mcg/kg/min, 0 mls/hr Norepinephrine Bitartrate (Levophed-Dextrose 4 Mg/250 Ml Drip) 4 mg in 250 mls @ 7.5 mls/hr IV.SIG TITRATE PRN; Protocol PRN Reason: Per Protocol Sodium Chloride (1/2 Normal Saline Inj) 1,000 mls @ 125 mls/hr IV.CONT .Q8H [facility] Last Admin: 06/09/18 08:07 Dose: 125 mls/hr Daptomycin 800 mg/ Sodium (Chloride) 100 mls @ 200 mls/hr IV.SIG Q48H [facility] Last Infusion: 06/08/18 18:20 Dose: Infused Cefepime HCl 1,000 mg/ Sodium (Chloride) 100 mls @ 200 mls/hr IV.SIG Q12H [facility] Last Infusion: 06/09/18 09:13 Dose: Infused Insulin Human Regular (Novolin R Correctional Sugar Inj) 0 units SQ Q4HR [facility]; Protocol Last Admin: 06/09/18 08:28 Dose: 1 units Labetalol HCl (Trandate Inj) 10 mg IV.PUSH Q2H PRN PRN Reason: BP > 140/90 Last Admin: 06/07/18 02:07 Dose: 10 mg Lactulose (Lactulose Liq) 30 ml PO DAILY PRN PRN Reason: SEVERE CONSITIPATION Miscellaneous Medication () 1 each OROPHARYNG 0000,0400,1200,1600 [facility] Last Admin: 06/09/18 04:34 Dose: 1 each Mupirocin (Bactroban 2% Nasal Oint) 1 applicatio EACH NARE BID [facility] Stop: 06/10/18 09:01 Last Admin: 06/09/18 08:05 Dose: 1 applicatio Senna/Docusate Sodium (Shasha-Colace) 1 tab PO BID [facility] Last Admin: 06/09/18 08:06 Dose: 1 tab Sennosides (Senokot) 17.2 mg PO Q12H PRN PRN Reason: Moderate Constipation Sodium Chloride (Ns Flush) 2 ml IV.FLUSH BID [facility] Last Admin: 06/09/18 08:05 Dose: 2 ml Sodium Chloride (Ns Flush) 2 ml IV.FLUSH PRN PRN PRN Reason: FLUSH AFTER USING IV ACCESS Sterile Water (Free Water) 250 ml G-TUBE Q8HR [facility] Last Admin: 06/09/18 06:54 Dose: 250 ml Terbutaline Sulfate (Brethine Inj) 1 mg SQ UNSCH PRN PRN Reason: For Extravasation Exam Vital signs: Vital Signs 06/08/18 11:00 06/08/18 12:00 06/08/18 13:00 Temperature 98.8 F Pulse Rate 76 73 76 Respiratory Rate 37 H 15 17 Blood Pressure 123/54 L 107/53 L 106/54 L Pulse Oximetry 98 97 99 06/08/18 14:00 06/08/18 15:00 06/08/18 17:45 Temperature 99.5 F Pulse Rate 67 77 93 H Respiratory Rate 25 H 30 H 31 H Blood Pressure 116/59 L 123/71 96/54 L Pulse Oximetry 98 100 98 06/08/18 18:00 06/08/18 18:08 06/08/18 18:11 Temperature Pulse Rate 90 89 86 Respiratory Rate 31 H 32 H 31 H Blood Pressure 95/54 L 93/51 L 94/55 L Pulse Oximetry 99 99 99 06/08/18 18:14 06/08/18 18:17 06/08/18 18:20 Temperature Pulse Rate 82 83 83 Respiratory Rate 32 H 32 H 32 H Blood Pressure 101/49 L 105/49 L 93/55 L Pulse Oximetry 99 99 99 06/08/18 18:23 06/08/18 18:26 06/08/18 18:29 Temperature Pulse Rate 83 82 83 Respiratory Rate 32 H 33 H 33 H Blood Pressure 94/44 L 94/51 L 96/46 L Pulse Oximetry 99 99 99 06/08/18 18:45 06/08/18 18:48 06/08/18 19:00 Temperature Pulse Rate 88 82 85 Respiratory Rate 33 H 34 H 33 H Blood Pressure 80/49 L 87/45 L 94/50 L Pulse Oximetry 100 100 100 06/08/18 19:15 06/08/18 19:30 06/08/18 19:45 Temperature Pulse Rate 83 78 77 Respiratory Rate 33 H 33 H 33 H Blood Pressure 99/50 L 93/45 L 98/46 L Pulse Oximetry 100 100 100 06/08/18 19:49 06/08/18 20:00 06/08/18 20:04 Temperature 103.3 F H Pulse Rate 73 Respiratory Rate 32 H 30 H 30 H Blood Pressure 91/46 L Pulse Oximetry 99 06/08/18 20:15 06/08/18 20:19 06/08/18 20:30 Temperature Pulse Rate 73 75 76 Respiratory Rate 30 H 31 H 31 H Blood Pressure 72/40 L 84/49 L Pulse Oximetry 100 99 99 06/08/18 20:45 06/08/18 21:00 06/08/18 21:15 Temperature Pulse Rate 75 76 70 Respiratory Rate 33 H 33 H 32 H Blood Pressure 86/54 L 84/51 L 82/45 L Pulse Oximetry 99 99 99 06/08/18 21:30 06/08/18 21:45 06/08/18 22:00 Temperature 102 F H Pulse Rate 68 67 64 Respiratory Rate 32 H 29 H 29 H Blood Pressure 81/48 L 82/49 L 82/47 L Pulse Oximetry 100 100 100 06/08/18 22:15 06/08/18 22:30 06/08/18 22:45 Temperature Pulse Rate 82 79 82 Respiratory Rate 33 H 30 H 30 H Blood Pressure 91/54 L 100/55 L 103/55 L Pulse Oximetry 99 100 100 06/08/18 23:00 06/08/18 23:15 06/08/18 23:30 Temperature Pulse Rate 82 81 88 Respiratory Rate 30 H 31 H 31 H Blood Pressure 105/51 L 102/50 L 109/55 L Pulse Oximetry 100 100 100 06/08/18 23:45 06/09/18 00:00 06/09/18 00:15 Temperature 101.9 F H Pulse Rate 86 85 73 Respiratory Rate 31 H 35 H 31 H Blood Pressure 103/50 L 116/59 L 106/58 L Pulse Oximetry 100 100 100 06/09/18 00:30 06/09/18 00:45 06/09/18 01:00 Temperature Pulse Rate 82 80 79 Respiratory Rate 31 H 31 H 29 H Blood Pressure 100/56 L 100/55 L 100/59 L Pulse Oximetry 100 100 100 06/09/18 01:13 06/09/18 01:15 06/09/18 01:30 Temperature Pulse Rate 80 76 Respiratory Rate 29 H 29 H 29 H Blood Pressure 106/57 L 104/56 L Pulse Oximetry 100 100 100 06/09/18 01:45 06/09/18 02:00 06/09/18 02:30 Temperature 100.8 F H Pulse Rate 80 88 90 Respiratory Rate 27 H 28 H 30 H Blood Pressure 114/59 L 119/59 L 95/41 L Pulse Oximetry 100 100 100 12/05/18 02:45 06/09/18 03:00 06/09/18 03:15 Temperature Pulse Rate 88 84 83 Respiratory Rate 31 H 29 H 29 H Blood Pressure 118/57 L 113/50 L 114/53 L Pulse Oximetry 100 100 100 06/09/18 03:30 06/09/18 03:45 06/09/18 03:54 Temperature Pulse Rate 85 81 91 H Respiratory Rate 30 H 30 H 30 H Blood Pressure 110/53 L 110/56 L Pulse Oximetry 100 100 06/09/18 04:00 06/09/18 04:15 06/09/18 04:26 Temperature 101.6 F H Pulse Rate 87 91 H Respiratory Rate 32 H 34 H 33 H Blood Pressure 114/50 L 102/55 L Pulse Oximetry 100 100 100 06/09/18 04:30 06/09/18 04:33 06/09/18 04:45 Temperature Pulse Rate 92 H 95 H Respiratory Rate 32 H 31 H 55 H Blood Pressure 133/61 125/60 Pulse Oximetry 100 100 06/09/18 05:00 06/09/18 05:15 06/09/18 05:30 Temperature Pulse Rate 85 88 87 Respiratory Rate 27 H 29 H 29 H Blood Pressure 107/58 L 118/59 L 125/60 Pulse Oximetry 100 99 99 06/09/18 05:45 06/09/18 06:00 06/09/18 07:57 Temperature Pulse Rate 87 85 Respiratory Rate 29 H 28 H 28 H Blood Pressure 119/58 L 125/61 Pulse Oximetry 98 99 100 06/09/18 08:01 Temperature Pulse Rate 79 Respiratory Rate 28 H Blood Pressure Pulse Oximetry Intake & Output 06/08/18 06/09/18 06/09/18 18:59 06:59 18:59 Intake Total 4163 / 4163 3555 / 3555 1100 / 1100 Output Total 650 / 650 650 / 650 Balance 3513 / 3513 2905 / 2905 1100 / 1100 Weight 141.1 kg Intake: IV 3785 / 3785 3555 / 3555 1100 / 1100 D5W Inj 1,000 ML @ 75 mls/hr IV 1000 / 1000 .CONT .[id number] [facility] Rx#:[id number] LR 1000 mL Inj 1,000 ML @ 75 260 / 260 mls/hr IV.CONT .[id number] [facility] Rx# :[id number] 1/2 Normal Saline Inj 1,000 ML 1000 / 1000 1000 / 1000 @ 125 mls/hr IV.CONT .Q8H [facility] Rx#:[id number] Ofirmev Inj 1,000 mg In 100 ml 200 / 200 @ 400 mls/hr IV.SIG Q8H PRN Rx# :[id number] Buminate 5% Inj 250 ML @ 250 250 / 250 mls/hr IV.SIG ONCE ONE Rx#: [id number] Alburx 5% Inj 500 ML @ 250 mls/ 500 / 500 hr IV.SIG ONCE ONE Rx#:[id number] Maxipime Inj 1,000 MG In NS Inj 100 / 100 100 ML @ 200 mls/hr IV.SIG Q12H [facility] Rx#:[id number] Cubicin Inj 800 MG In NS Inj 100 / 100 100 ML @ 200 mls/hr IV.SIG Q48H [facility] Rx#:[id number] D5W Inj 1,000 ML @ 75 mls/hr IV 300 / 300 .SIG .[id number] [facility] Rx#:[id number] NS Inj 1,000 ML @ 999 mls/hr IV 1000 / 1000 1000 / 1000 .SIG BOLUS ONE Rx#:[id number] 1/2 Normal Saline Inj 1,000 ML 1000 / 1000 @ Wide Open IV.SIG BOLUS ONE Rx #:[id number] Keppra Inj 500 MG In NS Inj 100 105 / 105 105 / 105 ML @ 400 mls/hr IV.SIG Q12H [facility] Rx#:[id number] Tube Feeding 68 / 68 Water Bolus Amount 250 / 250 Other 60 / 60 Output: Urine Amount (Catheter) 650 / 650 650 / 650 Indwelling Urethral Catheter 650 / 650 650 / 650 Other: Date of Last Bowel Movement 06/02/18 06/02/18 # Bowel Movements 0 Narrative: GENERAL: Orally intubated on sedation. SKIN: Warm and dry. NECK: Supple, trachea midline. No JVD. CARDIOVASCULAR: Regular rate and rhythm without murmurs, gallops, or rubs. RESPIRATORY: Breath sounds equal bilaterally. No accessory muscle use. Rhonchi. GASTROINTESTINAL: Abdomen soft, non-tender, nondistended. OG tube MUSCULOSKELETAL: No cyanosis, or edema. Results - Lab Results 06/09/18 04:01 06/09/18 04:01 Most recent lab results ABG pH 7.40 (7.380-7.420) 06/08/18 05:59 ABG pCO2 34 mmHg (38-42) L 06/08/18 05:59 ABG pO2 72 mmHg (61-120) 06/08/18 05:59 ABG HCO3 20 mmol/L (22-26) L 06/08/18 05:59 Calcium 7.3 mg/dL (8.5-10.1) L* 06/09/18 04:01 Magnesium 2.2 mg/dL (1.5-2.5) 06/03/18 05:20 Assessment and Plan - Assessment (1) Acute kidney failure Code(s): N17.9 - Acute kidney failure, unspecified Status: Acute Plan: Acute kidney injury with creatinine of 3.50. HCO3 at 20.6. Non oliguric. On admission creatinine was noted to be 1.56 CT on abdomen with no acute findings. Bilateral renal cysts noted. Patient may have some chronic kidney disease but baseline creatinine is not known. Proteinuria noted in urine. Creatinine started to increase on the 4th at 2.86. NIKKI with FeNA at 2.35 suggestive of ATN possibly from sepsis or vancomycin/ gentamicin toxicity which levels were both elevated on the 4th. Also had IV contrast on 06/04 so possible contrast nephropathy in differential Avoid nephrotoxins as possible. Continue IVF;s, Will order SPEP and serology. Renal dose antibiotics as possible. Maintain strict I+O. Indwelling sim catheter labs in AM <Aurelia Powell - Last Filed: 06/10/18 18:35> History of Present Illness Primary Care Provider: UNKNOWN [facility] - Medical History Medical History: Medical History (Last Reviewed 06/08/18 @ 08:10 by Michelle Piedra [employer], CLIENT SOLUTIONS DIRECTOR) Diabetes History of MRSA infection Onset Date: ~06/03/18 Hypertension Obesity UTI (urinary tract infection) Medications and Allergies Active Medications: Active Medications Acetaminophen (Tylenol) 650 mg PO Q6H PRN PRN Reason: PAIN 1-10 AND/OR FEVER >101F Last Admin: 06/06/18 12:05 Dose: 650 mg Al Hydroxide/Mg Hydroxide (Milk Of Magnesia Liq) 30 ml PO Q12H PRN PRN Reason: Mild Constipation Albuterol (Duoneb Neb (Prn)) 1 ampul NEB Q2HR NEB PRN PRN Reason: WHEEZING Last Admin: 06/03/18 19:44 Dose: 1 ampul Albuterol (Duoneb Neb ([facility])) 1 ampul NEB Q6HR NEB [facility] Last Admin: 06/10/18 14:51 Dose: 1 ampul Bisacodyl (Dulcolax Supp) 10 mg RECTAL DAILY PRN PRN Reason: SEVERE CONSITIPATION Chlorhexidine Gluconate (Peridex 0.12% Oral Kit) 15 ml OROPHARYNG BID@0800, 2000 [facility] Last Admin: 06/10/18 09:20 Dose: 15 ml Clonidine HCl (Catapres) 0.1 mg PO Q6H PRN PRN Reason: SBP>160, DBP>90 Dextrose (D50w Vial) 50 ml IV.PUSH UNSCH PRN PRN Reason: PER HYPOGLYCEMIA PROTOCOL Famotidine (Pepcid Pf Inj) 20 mg IV.PUSH Q12HR [facility] Last Admin: 06/10/18 08:55 Dose: 20 mg Glucagon (Glucagon Inj) 1 mg OTHER PRN PRN PRN Reason: for Hypoglycemia Protocol Heparin Sodium (Porcine) (Heparin Inj) 5,000 units SQ Q12HR [facility] Levetiracetam 500 mg/ Sodium (Chloride) 105 mls @ 400 mls/hr IV.SIG Q12H [facility] Last Admin: 06/10/18 16:24 Dose: 400 mls/hr Sodium Phosphate 30 mmol/ (Sodium Chloride) 260 mls @ 42 mls/hr IV.SIG UNSCH PRN PRN Reason: For Phosphorus < 2.5 mg/dL Dexmedetomidine HCl 200 mcg/ (Sodium Chloride) 50 mls @ 6.65 mls/hr IV.CONT TITRATE PRN; Protocol PRN Reason: Per Protocol Last Titration: 06/10/18 16:42 Dose: Infused Acetaminophen (Ofirmev Inj) 1,000 mg in 100 mls @ 400 mls/hr IV.SIG Q8H PRN PRN Reason: FEVER > 101 F Last Infusion: 06/09/18 04:48 Dose: Infused Propofol (Diprivan 1000 Mg/100 Ml Inj) 1,000 mg in 100 mls @ 3.972 mls/hr IV.CONT TITRATE PRN; Protocol PRN Reason: Per Protocol Last Admin: 06/10/18 03:35 Dose: 5 mcg/kg/min, 3.97 mls/hr Norepinephrine Bitartrate (Levophed-Dextrose 4 Mg/250 Ml Drip) 4 mg in 250 mls @ 7.5 mls/hr IV.SIG TITRATE PRN; Protocol PRN Reason: Per Protocol Sodium Chloride (1/2 Normal Saline Inj) 1,000 mls @ 125 mls/hr IV.CONT .Q8H [facility] Last Admin: 06/10/18 11:59 Dose: 125 mls/hr Daptomycin 800 mg/ Sodium (Chloride) 100 mls @ 200 mls/hr IV.SIG Q48H [facility] Last Infusion: 06/10/18 17:10 Dose: Infused Ertapenem 500 mg/ Sodium (Chloride) 100 mls @ 200 mls/hr IV.SIG Q24H [facility] Last Infusion: 06/10/18 17:10 Dose: Infused Insulin Human Regular (Novolin R Correctional Sugar Inj) 0 units SQ Q4HR [facility]; Protocol Last Admin: 06/10/18 17:06 Dose: 1 units Labetalol HCl (Trandate Inj) 10 mg IV.PUSH Q2H PRN PRN Reason: BP > 140/90 Last Admin: 06/09/18 16:36 Dose: 10 mg Lactulose (Lactulose Liq) 30 ml PO DAILY PRN PRN Reason: SEVERE CONSITIPATION Miscellaneous Medication () 1 each OROPHARYNG 0000,0400,1200,1600 [facility] Last Admin: 06/10/18 17:06 Dose: 1 each Miscellaneous Medication (Asp Crit: Doc Esbl, Mdr A Baumannii Or P Aer) 1 each OTHER UNSCH PRN PRN Reason: PHARMACY DOCUMENTATION Stop: 06/11/18 13:01 Senna/Docusate Sodium (Shasha-Colace) 1 tab PO BID [facility] Last Admin: 06/10/18 09:20 Dose: Not Given Sennosides (Senokot) 17.2 mg PO Q12H PRN PRN Reason: Moderate Constipation Sodium Chloride (Ns Flush) 2 ml IV.FLUSH BID [facility] Last Admin: 06/10/18 09:20 Dose: 2 ml Sodium Chloride (Ns Flush) 2 ml IV.FLUSH PRN PRN PRN Reason: FLUSH AFTER USING IV ACCESS Sterile Water (Free Water) 250 ml G-TUBE Q8HR [facility] Last Admin: 06/10/18 16:23 Dose: 250 ml Terbutaline Sulfate (Brethine Inj) 1 mg SQ UNSCH PRN PRN Reason: For Extravasation Exam Vital signs: Vital Signs 06/09/18 19:28 06/09/18 20:15 06/09/18 20:30 Temperature 99.7 F H Pulse Rate 73 69 73 Respiratory Rate 26 H 28 H 26 H Blood Pressure 142/64 H 138/63 Pulse Oximetry 100 100 100 06/09/18 20:45 06/09/18 21:00 06/09/18 21:15 Temperature Pulse Rate 78 80 78 Respiratory Rate 26 H 28 H 27 H Blood Pressure 140/66 142/64 H 143/63 H Pulse Oximetry 100 100 100 06/09/18 21:30 06/09/18 21:45 06/09/18 22:00 Temperature Pulse Rate 74 81 78 Respiratory Rate 28 H 28 H 27 H Blood Pressure 136/61 143/65 H 142/65 H Pulse Oximetry 100 100 100 06/09/18 22:15 06/09/18 22:30 06/09/18 22:45 Temperature Pulse Rate 77 83 77 Respiratory Rate 28 H 29 H 28 H Blood Pressure 137/58 L 145/67 H 141/63 H Pulse Oximetry 100 100 100 06/09/18 23:00 06/09/18 23:15 06/09/18 23:30 Temperature Pulse Rate 81 81 78 Respiratory Rate 28 H 29 H 28 H Blood Pressure 142/64 H 137/63 134/62 Pulse Oximetry 100 100 100 06/09/18 23:45 06/10/18 00:00 06/10/18 00:15 Temperature 100.0 F H Pulse Rate 80 75 75 Respiratory Rate 29 H 28 H 28 H Blood Pressure 141/64 H 140/63 138/64 Pulse Oximetry 100 100 100 06/10/18 00:30 06/10/18 00:45 06/10/18 01:00 Temperature Pulse Rate 80 79 76 Respiratory Rate 29 H 28 H 28 H Blood Pressure 139/63 139/63 131/62 Pulse Oximetry 100 100 100 06/10/18 01:15 06/10/18 01:16 06/10/18 01:30 Temperature Pulse Rate 74 77 Respiratory Rate 28 H 28 H 29 H Blood Pressure 135/62 143/66 H Pulse Oximetry 100 100 100 06/10/18 01:45 06/10/18 02:00 06/10/18 02:15 Temperature Pulse Rate 69 71 75 Respiratory Rate 28 H 30 H 30 H Blood Pressure 141/65 H 141/63 H 139/61 Pulse Oximetry 100 100 100 06/10/18 02:30 06/10/18 02:45 06/10/18 03:00 Temperature 100.0 F H Pulse Rate 73 75 76 Respiratory Rate 29 H 28 H 30 H Blood Pressure 136/63 Pulse Oximetry 100 100 100 06/10/18 03:02 06/10/18 03:15 06/10/18 03:30 Temperature Pulse Rate 77 74 74 Respiratory Rate 28 H 29 H 29 H Blood Pressure 136/63 Pulse Oximetry 100 100 100 06/10/18 03:45 06/10/18 04:00 06/10/18 04:02 Temperature 99.1 F Pulse Rate 73 75 71 Respiratory Rate 27 H 27 H 28 H Blood Pressure 142/62 H 142/62 H Pulse Oximetry 100 100 100 06/10/18 04:15 06/10/18 04:30 06/10/18 04:36 Temperature Pulse Rate 71 71 75 Respiratory Rate 28 H 27 H 27 H Blood Pressure Pulse Oximetry 100 100 100 06/10/18 04:45 06/10/18 05:00 06/10/18 05:02 Temperature Pulse Rate 81 86 85 Respiratory Rate 29 H 30 H 39 H Blood Pressure 160/70 H Pulse Oximetry 100 100 100 06/10/18 05:15 06/10/18 05:30 06/10/18 05:45 Temperature Pulse Rate 91 H 93 H 91 H Respiratory Rate 62 H 61 H 43 H Blood Pressure Pulse Oximetry 100 100 100 06/10/18 05:53 06/10/18 06:00 06/10/18 06:02 Temperature Pulse Rate 93 H 88 86 Respiratory Rate 47 H 36 H 34 H Blood Pressure 155/67 H 138/63 Pulse Oximetry 100 100 100 06/10/18 06:15 06/10/18 06:30 06/10/18 07:02 Temperature Pulse Rate 84 83 76 Respiratory Rate 59 H 58 H 60 H Blood Pressure 133/59 L Pulse Oximetry 100 100 100 06/10/18 07:25 06/10/18 08:00 06/10/18 09:00 Temperature 98.8 F Pulse Rate 88 81 83 Respiratory Rate 25 H 28 H 45 H Blood Pressure 127/58 L 147/67 H Pulse Oximetry 100 100 100 06/10/18 09:30 06/10/18 10:00 06/10/18 10:30 Temperature Pulse Rate 80 71 72 Respiratory Rate 41 H 28 H 28 H Blood Pressure 132/62 120/57 L 122/58 L Pulse Oximetry 100 100 100 06/10/18 11:00 06/10/18 11:30 06/10/18 12:00 Temperature 98.8 F Pulse Rate 70 69 75 Respiratory Rate 28 H 32 H 28 H Blood Pressure 125/57 L 123/58 L 126/58 L Pulse Oximetry 100 100 100 06/10/18 12:03 06/10/18 12:30 06/10/18 13:00 Temperature Pulse Rate 71 77 Respiratory Rate 27 H 27 H 28 H Blood Pressure 128/60 135/63 Pulse Oximetry 100 100 100 06/10/18 13:30 06/10/18 13:46 06/10/18 13:51 Temperature Pulse Rate 73 87 Respiratory Rate 28 H 26 H Blood Pressure 130/59 L 143/62 H Pulse Oximetry 100 100 100 06/10/18 14:00 06/10/18 14:30 06/10/18 14:52 Temperature Pulse Rate 69 72 74 Respiratory Rate 27 H 26 H 27 H Blood Pressure 119/58 L 124/58 L Pulse Oximetry 100 100 100 06/10/18 15:00 06/10/18 15:30 06/10/18 16:00 Temperature Pulse Rate 71 74 71 Respiratory Rate 31 H 27 H 34 H Blood Pressure 129/63 132/61 130/61 Pulse Oximetry 100 100 100 06/10/18 16:30 06/10/18 17:00 06/10/18 17:30 Temperature Pulse Rate 70 74 74 Respiratory Rate 28 H 26 H 26 H Blood Pressure 127/59 L 131/61 133/60 Pulse Oximetry 100 100 100 06/10/18 18:00 Temperature Pulse Rate 68 Respiratory Rate 25 H Blood Pressure 125/60 Pulse Oximetry 100 Intake & Output 06/09/18 06/10/18 06/10/18 18:59 06:59 18:59 Intake Total 2595 / 2595 3015 / 3015 1440 / 1440 Output Total 1450 / 1450 1000 / 1000 1300 / 1300 Balance 1145 / 1145 2014 140 / 140 Weight 136.1 kg Intake: IV 2305 / 2305 2200 / 2200 1440 / 1440 Precedex Inj 200 MCG In NS Inj 35 / 35 48 ML @ 0.2 MCG/KG/HR 6.65 mls/ hr IV.CONT TITRATE PRN Rx#: [id number] Diprivan 1000 mg/100 ml Inj 1, 100 / 100 100 / 100 000 mg In 100 ml @ 5 MCG/KG/MIN 3.972 mls/hr IV.CONT TITRATE PRN Rx#:[id number] 1/2 Normal Saline Inj 1,000 ML 2000 / 2000 2000 / 2000 1000 / 1000 @ 125 mls/hr IV.CONT .Q8H [facility] Rx#:[id number] Maxipime Inj 1,000 MG In NS Inj 100 / 100 100 / 100 100 / 100 100 ML @ 200 mls/hr IV.SIG Q12H [facility] Rx#:[id number] Cubicin Inj 800 MG In NS Inj 100 / 100 100 ML @ 200 mls/hr IV.SIG Q48H [facility] Rx#:[id number] INVanz Inj 500 MG In NS Inj 100 100 / 100 ML @ 200 mls/hr IV.SIG Q24H [facility] Rx#:[id number] Keppra Inj 500 MG In NS Inj 100 105 / 105 105 / 105 ML @ 400 mls/hr IV.SIG Q12H [facility] Rx#:[id number] Tube Feeding 40 / 40 395 / 395 Water Bolus Amount 250 / 250 420 / 420 Output: Urine Amount (Catheter) 1450 / 1450 1000 / 1000 1300 / 1300 Indwelling Urethral Catheter 1450 / 1450 1000 / 1000 1300 / 1300 Other: Date of Last Bowel Movement 06/02/18 06/02/18 06/02/18 Results - Lab Results 06/10/18 06:20 06/10/18 06:20 Most recent lab results ABG pH 7.40 (7.380-7.420) 06/08/18 05:59 ABG pCO2 34 mmHg (38-42) L 06/08/18 05:59 ABG pO2 72 mmHg (61-120) 06/08/18 05:59 ABG HCO3 20 mmol/L (22-26) L 06/08/18 05:59 Calcium 7.3 mg/dL (8.5-10.1) L* 06/10/18 06:20 Phosphorus 4.9 mg/dL (2.5-4.9) 06/10/18 06:20 Magnesium 2.2 mg/dL (1.5-2.5) 06/03/18 05:20 Assessment and Plan - Assessment (1) Acute kidney failure Code(s): N17.9 - Acute kidney failure, unspecified Status: Acute Plan: Patient seen and examined, agree with above. Patient develop NIKKI, possibly ATN from sepsis, or Contrast. Other differential is AIN. Non oliguric, continue IVF, follow the urine out put and BMP.
--- NOTE | 2018-06-09 11:33 | P.PNOP ---
Physical Exam Vital signs: Vital Signs 06/08/18 12:00 06/08/18 13:00 06/08/18 14:00 Temperature 98.8 F Pulse Rate 73 76 67 Respiratory Rate 15 17 25 H Blood Pressure 107/53 L 106/54 L 116/59 L Pulse Oximetry 97 99 98 06/08/18 15:00 06/08/18 17:45 06/08/18 18:00 Temperature 99.5 F Pulse Rate 77 93 H 90 Respiratory Rate 30 H 31 H 31 H Blood Pressure 123/71 96/54 L 95/54 L Pulse Oximetry 100 98 99 06/08/18 18:08 06/08/18 18:11 06/08/18 18:14 Temperature Pulse Rate 89 86 82 Respiratory Rate 32 H 31 H 32 H Blood Pressure 93/51 L 94/55 L 101/49 L Pulse Oximetry 99 99 99 06/08/18 18:17 06/08/18 18:20 06/08/18 18:23 Temperature Pulse Rate 83 83 83 Respiratory Rate 32 H 32 H 32 H Blood Pressure 105/49 L 93/55 L 94/44 L Pulse Oximetry 99 99 99 06/08/18 18:26 06/08/18 18:29 06/08/18 18:45 Temperature Pulse Rate 82 83 88 Respiratory Rate 33 H 33 H 33 H Blood Pressure 94/51 L 96/46 L 80/49 L Pulse Oximetry 99 99 100 06/08/18 18:48 06/08/18 19:00 06/08/18 19:15 Temperature Pulse Rate 82 85 83 Respiratory Rate 34 H 33 H 33 H Blood Pressure 87/45 L 94/50 L 99/50 L Pulse Oximetry 100 100 100 06/08/18 19:30 06/08/18 19:45 06/08/18 19:49 Temperature Pulse Rate 78 77 Respiratory Rate 33 H 33 H 32 H Blood Pressure 93/45 L 98/46 L Pulse Oximetry 100 100 06/08/18 20:00 06/08/18 20:04 06/08/18 20:15 Temperature 103.3 F H Pulse Rate 73 73 Respiratory Rate 30 H 30 H 30 H Blood Pressure 91/46 L 72/40 L Pulse Oximetry 99 100 06/08/18 20:19 06/08/18 20:30 06/08/18 20:45 Temperature Pulse Rate 75 76 75 Respiratory Rate 31 H 31 H 33 H Blood Pressure 84/49 L 86/54 L Pulse Oximetry 99 99 99 06/08/18 21:00 06/08/18 21:15 06/08/18 21:30 Temperature Pulse Rate 76 70 68 Respiratory Rate 33 H 32 H 32 H Blood Pressure 84/51 L 82/45 L 81/48 L Pulse Oximetry 99 99 100 06/08/18 21:45 06/08/18 22:00 06/08/18 22:15 Temperature 102 F H Pulse Rate 67 64 82 Respiratory Rate 29 H 29 H 33 H Blood Pressure 82/49 L 82/47 L 91/54 L Pulse Oximetry 100 100 99 06/08/18 22:30 06/08/18 22:45 06/08/18 23:00 Temperature Pulse Rate 79 82 82 Respiratory Rate 30 H 30 H 30 H Blood Pressure 100/55 L 103/55 L 105/51 L Pulse Oximetry 100 100 100 06/08/18 23:15 06/08/18 23:30 06/08/18 23:45 Temperature Pulse Rate 81 88 86 Respiratory Rate 31 H 31 H 31 H Blood Pressure 102/50 L 109/55 L 103/50 L Pulse Oximetry 100 100 100 06/09/18 00:00 06/09/18 00:15 06/09/18 00:30 Temperature 101.9 F H Pulse Rate 85 73 82 Respiratory Rate 35 H 31 H 31 H Blood Pressure 116/59 L 106/58 L 100/56 L Pulse Oximetry 100 100 100 06/09/18 00:45 06/09/18 01:00 06/09/18 01:13 Temperature Pulse Rate 80 79 Respiratory Rate 31 H 29 H 29 H Blood Pressure 100/55 L 100/59 L Pulse Oximetry 100 100 100 06/09/18 01:15 06/09/18 01:30 06/09/18 01:45 Temperature Pulse Rate 80 76 80 Respiratory Rate 29 H 29 H 27 H Blood Pressure 106/57 L 104/56 L 114/59 L Pulse Oximetry 100 100 100 06/09/18 02:00 06/09/18 02:30 06/09/18 02:45 Temperature 100.8 F H Pulse Rate 88 90 88 Respiratory Rate 28 H 30 H 31 H Blood Pressure 119/59 L 95/41 L 118/57 L Pulse Oximetry 100 100 100 06/09/18 03:00 06/09/18 03:15 06/09/18 03:30 Temperature Pulse Rate 84 83 85 Respiratory Rate 29 H 29 H 30 H Blood Pressure 113/50 L 114/53 L 110/53 L Pulse Oximetry 100 100 100 06/09/18 03:45 06/09/18 03:54 06/09/18 04:00 Temperature 101.6 F H Pulse Rate 81 91 H 87 Respiratory Rate 30 H 30 H 32 H Blood Pressure 110/56 L 114/50 L Pulse Oximetry 100 100 06/09/18 04:15 06/09/18 04:26 06/09/18 04:30 Temperature Pulse Rate 91 H 92 H Respiratory Rate 34 H 33 H 32 H Blood Pressure 102/55 L 133/61 Pulse Oximetry 100 100 100 06/09/18 04:33 06/09/18 04:45 06/09/18 05:00 Temperature Pulse Rate 95 H 85 Respiratory Rate 31 H 55 H 27 H Blood Pressure 125/60 107/58 L Pulse Oximetry 100 100 06/09/18 05:15 06/09/18 05:30 06/09/18 05:45 Temperature Pulse Rate 88 87 87 Respiratory Rate 29 H 29 H 29 H Blood Pressure 118/59 L 125/60 119/58 L Pulse Oximetry 99 99 98 06/09/18 06:00 06/09/18 07:57 06/09/18 08:01 Temperature Pulse Rate 85 79 Respiratory Rate 28 H 28 H 28 H Blood Pressure 125/61 Pulse Oximetry 99 100 Intake & Output 06/08/18 06/09/18 06/09/18 18:59 06:59 18:59 Intake Total 4163 / 4163 3555 / 3555 1100 / 1100 Output Total 650 / 650 650 / 650 Balance 3513 / 3513 2905 / 2905 1100 / 1100 Weight 141.1 kg Intake: IV 3785 / 3785 3555 / 3555 1100 / 1100 D5W Inj 1,000 ML @ 75 mls/hr IV 1000 / 1000 .CONT .[id number] [facility] Rx#:[id number] LR 1000 mL Inj 1,000 ML @ 75 260 / 260 mls/hr IV.CONT .[id number] [facility] Rx# :[id number] 1/2 Normal Saline Inj 1,000 ML 1000 / 1000 1000 / 1000 @ 125 mls/hr IV.CONT .Q8H [facility] Rx#:[id number] Ofirmev Inj 1,000 mg In 100 ml 200 / 200 @ 400 mls/hr IV.SIG Q8H PRN Rx# :[id number] Buminate 5% Inj 250 ML @ 250 250 / 250 mls/hr IV.SIG ONCE ONE Rx#: [id number] Alburx 5% Inj 500 ML @ 250 mls/ 500 / 500 hr IV.SIG ONCE ONE Rx#:[id number] Maxipime Inj 1,000 MG In NS Inj 100 / 100 100 ML @ 200 mls/hr IV.SIG Q12H [facility] Rx#:[id number] Cubicin Inj 800 MG In NS Inj 100 / 100 100 ML @ 200 mls/hr IV.SIG Q48H [facility] Rx#:[id number] D5W Inj 1,000 ML @ 75 mls/hr IV 300 / 300 .SIG .[id number] [facility] Rx#:[id number] NS Inj 1,000 ML @ 999 mls/hr IV 1000 / 1000 1000 / 1000 .SIG BOLUS ONE Rx#:[id number] 1/2 Normal Saline Inj 1,000 ML 1000 / 1000 @ Wide Open IV.SIG BOLUS ONE Rx #:[id number] Keppra Inj 500 MG In NS Inj 100 105 / 105 105 / 105 ML @ 400 mls/hr IV.SIG Q12H [facility] Rx#:[id number] Tube Feeding 68 / 68 Water Bolus Amount 250 / 250 Other 60 / 60 Output: Urine Amount (Catheter) 650 / 650 650 / 650 Indwelling Urethral Catheter 650 / 650 650 / 650 Other: Date of Last Bowel Movement 06/02/18 06/02/18 # Bowel Movements 0 - Urinary Catheter Management Indwelling Urethral Catheter Cath placed during this visit: yes Reason for continuing: Hourly intake/output Insertion date: 06/03/18 Insertion time: 03:00 Results - Labs CBC & Chem 7: 06/09/18 04:01 06/09/18 04:01 Laboratory Results - last 24 hr 06/07/18 06/08/18 06/08/18 12:49 05:54 05:54 WBC RBC Hgb Hct MCV MCH MCHC RDW Plt Count MPV Neut % (Auto) Lymph % (Auto) [place] % (Auto) Eos % (Auto) Baso % (Auto) Neut # (Auto) Lymph # (Auto) [place] # (Auto) Eos # (Auto) Baso # (Auto) WBC Differential Differential Comment Sodium 163 H* Cancelled Potassium 4.7 Cancelled Chloride 134 H Cancelled Carbon Dioxide 22.0 Cancelled Anion Gap 7 Cancelled BUN 69 H Cancelled Creatinine 2.86 H Cancelled Estimated GFR 22 L Cancelled POC Glucose Random Glucose 190 H Cancelled Lactic Acid Calcium 8.2 L Cancelled Calcium Adj for Albumin Cancelled Total Bilirubin 0.7 Cancelled AST 85 H Cancelled ALT 45 Cancelled Alkaline Phosphatase 64 Cancelled Total Creatine Kinase CK-MB (CK-2) CK-MB (CK-2) % B-Natriuretic Peptide Total Protein 6.5 Cancelled Albumin 1.9 L Cancelled Urine Color Cherri Urine Clarity Turbid H Urine pH 5.0 Ur Specific [place] 1.024 Urine Protein 100 H Urine Glucose (UA) 50 Urine Ketones Negative Urine Occult Blood Moderate H Urine Nitrate Negative Urine Bilirubin Negative Urine Urobilinogen 2.0 H Ur Leukocyte Esterase Small H Urine RBC 20 H Urine WBC 47 H Ur Squamous Epith Cells 1 Amorphous Sediment Few H Urine Bacteria Many H Urine Mucus Moderate H Micro UA Comment Cath-culture ind Urine Culture Comments Cath-cult indicated 06/08/18 06/08/18 06/08/18 12:15 18:46 18:46 WBC RBC Hgb Hct MCV MCH MCHC RDW Plt Count MPV Neut % (Auto) Lymph % (Auto) [place] % (Auto) Eos % (Auto) Baso % (Auto) Neut # (Auto) Lymph # (Auto) [place] # (Auto) Eos # (Auto) Baso # (Auto) WBC Differential Differential Comment Sodium Cancelled 163 H* Potassium 4.6 Chloride 130 H Carbon Dioxide 21.1 Anion Gap 12 BUN 78 H Creatinine 3.26 H Estimated GFR 19 L POC Glucose 190 H Random Glucose 154 H Lactic Acid Calcium 7.9 L Calcium Adj for Albumin Total Bilirubin AST ALT Alkaline Phosphatase Total Creatine Kinase 2057 H CK-MB (CK-2) 5.6 H CK-MB (CK-2) % 0.3 B-Natriuretic Peptide Total Protein Albumin Urine Color Urine Clarity Urine pH Ur Specific [place] Urine Protein Urine Glucose (UA) Urine Ketones Urine Occult Blood Urine Nitrate Urine Bilirubin Urine Urobilinogen Ur Leukocyte Esterase Urine RBC Urine WBC Ur Squamous Epith Cells Amorphous Sediment Urine Bacteria Urine Mucus Micro UA Comment Urine Culture Comments 06/08/18 06/08/18 06/08/18 18:46 20:30 23:55 WBC RBC Hgb Hct MCV MCH MCHC RDW Plt Count MPV Neut % (Auto) Lymph % (Auto) [place] % (Auto) Eos % (Auto) Baso % (Auto) Neut # (Auto) Lymph # (Auto) [place] # (Auto) Eos # (Auto) Baso # (Auto) WBC Differential Differential Comment Sodium Potassium Chloride Carbon Dioxide Anion Gap BUN Creatinine Estimated GFR POC Glucose 136 H 166 H Random Glucose Lactic Acid 2.2 H Calcium Calcium Adj for Albumin Total Bilirubin AST ALT Alkaline Phosphatase Total Creatine Kinase CK-MB (CK-2) CK-MB (CK-2) % B-Natriuretic Peptide Total Protein Albumin Urine Color Urine Clarity Urine pH Ur Specific [place] Urine Protein Urine Glucose (UA) Urine Ketones Urine Occult Blood Urine Nitrate Urine Bilirubin Urine Urobilinogen Ur Leukocyte Esterase Urine RBC Urine WBC Ur Squamous Epith Cells Amorphous Sediment Urine Bacteria Urine Mucus Micro UA Comment Urine Culture Comments 06/09/18 06/09/18 06/09/18 04:01 04:01 04:01 WBC 13.9 H RBC 3.26 L Hgb 9.6 L Hct 29.8 L MCV 91.5 MCH 29.5 MCHC 32.2 RDW 18.0 H Plt Count 166 MPV 9.9 Neut % (Auto) 81.9 H Lymph % (Auto) 9.3 [place] % (Auto) 6.7 Eos % (Auto) 1.9 Baso % (Auto) 0.2 Neut # (Auto) 11.4 H Lymph # (Auto) 1.3 [place] # (Auto) 0.9 Eos # (Auto) 0.3 Baso # (Auto) 0.0 WBC Differential . Differential Comment Auto diff final Sodium 160 H* Potassium 4.6 Chloride 131 H Carbon Dioxide 20.6 L Anion Gap 8 BUN 81 H Creatinine 3.50 H Estimated GFR 17 L POC Glucose Random Glucose 163 H Lactic Acid Calcium 7.3 L* Calcium Adj for Albumin 8.8 Total Bilirubin 0.7 AST 116 H ALT 46 Alkaline Phosphatase 54 Total Creatine Kinase CK-MB (CK-2) CK-MB (CK-2) % B-Natriuretic Peptide 89 Total Protein 6.2 L Albumin 2.1 L Urine Color Urine Clarity Urine pH Ur Specific [place] Urine Protein Urine Glucose (UA) Urine Ketones Urine Occult Blood Urine Nitrate Urine Bilirubin Urine Urobilinogen Ur Leukocyte Esterase Urine RBC Urine WBC Ur Squamous Epith Cells Amorphous Sediment Urine Bacteria Urine Mucus Micro UA Comment Urine Culture Comments 06/09/18 06/09/18 04:28 07:45 WBC RBC Hgb Hct MCV MCH MCHC RDW Plt Count MPV Neut % (Auto) Lymph % (Auto) [place] % (Auto) Eos % (Auto) Baso % (Auto) Neut # (Auto) Lymph # (Auto) [place] # (Auto) Eos # (Auto) Baso # (Auto) WBC Differential Differential Comment Sodium Potassium Chloride Carbon Dioxide Anion Gap BUN Creatinine Estimated GFR POC Glucose 195 H 154 H Random Glucose Lactic Acid Calcium Calcium Adj for Albumin Total Bilirubin AST ALT Alkaline Phosphatase Total Creatine Kinase CK-MB (CK-2) CK-MB (CK-2) % B-Natriuretic Peptide Total Protein Albumin Urine Color Urine Clarity Urine pH Ur Specific [place] Urine Protein Urine Glucose (UA) Urine Ketones Urine Occult Blood Urine Nitrate Urine Bilirubin Urine Urobilinogen Ur Leukocyte Esterase Urine RBC Urine WBC Ur Squamous Epith Cells Amorphous Sediment Urine Bacteria Urine Mucus Micro UA Comment Urine Culture Comments Microbiology 06/08/18 14:00 Blood - Peripheral Aerobic Blood Culture - Preliminary gram positive cocci 06/08/18 14:00 Blood - Peripheral Anaerobic Blood Culture - Preliminary No growth in 1 day 06/08/18 05:54 Blood - Peripheral Aerobic Blood Culture - Preliminary gram positive cocci 06/08/18 05:54 Blood - Peripheral Anaerobic Blood Culture - Preliminary No growth in 1 day 06/07/18 14:19 Blood - Peripheral Aerobic Blood Culture - Preliminary gram positive cocci 06/07/18 14:19 Blood - Peripheral Anaerobic Blood Culture - Preliminary No growth in 2 days 06/06/18 04:13 Blood - Peripheral Aerobic Blood Culture - Final S. aureus MRSA 06/06/18 04:13 Blood - Peripheral Anaerobic Blood Culture - Preliminary No growth in 3 days 06/04/18 16:45 Blood - Peripheral Aerobic Blood Culture - Final S. aureus MRSA 06/04/18 16:45 Blood - Peripheral Anaerobic Blood Culture - Final No growth in 5 days 06/04/18 16:45 Blood - Peripheral Aerobic Blood Culture - Final S. aureus MRSA 06/04/18 16:45 Blood - Peripheral Anaerobic Blood Culture - Final No growth in 5 days 06/07/18 12:49 Catheterized Urine Urine Culture - Final Escherichia coli ESBL positive 06/08/18 18:30 Sputum - Endotracheal Gram Stain - Final - Imaging Impressions Head CT 06/08/18 00:00 CONCLUSION: 1. Resolving subarachnoid hemorrhage. No acute hemorrhage is identified. . Knee MRI 06/08/18 07:08 CONCLUSION: 1. Nonspecific joint effusion and moderate severity synovitis. Also nonspecific subcutaneous edema. Nothing organized or drainable. 2. Medial compartment predominant osteoarthritis. 3. Tears of the medial and lateral menisci as above. Cervical Spine MRI 06/08/18 07:09 CONCLUSION: 1. Increased signal anterior to the C6-C7 disc level and between the prominent anterior marginal osteophytes. The anterior longitudinal ligament is not seen. This could be the sequela of an injury in this region. The remaining aspect of the disc is intact. The vertebral bodies demonstrate normal signal. Prevertebral soft tissue swelling is not seen. This could be chronic. Fluid resembling a pseudarthrosis can also develop between osteophytes potentially. The remaining soft tissues appear intact. 2. Mild left lateral recess disc protrusion at the C2-C3 level. 3. Mild central disc protrusion at the C3-C4 level. 4. Mild disc bulge at the C5-C6 level and minimal disc bulge at the C4-C5 level. 5. Scattered neural foraminal narrowing as described above. Lumbar Spine MRI 06/08/18 07:09 CONCLUSION: 1. Severe stenosis at the L4-L5 level. 2. Moderate stenosis at the L2-L3 level. 3. Minimal disc bulge at the L1-L2 level with a small inferiorly directed extruded disc fragment at the right side. Significant stenosis is not seen at this level. 4. No focal fluid collection is identified. Thoracic Spine MRI 06/08/18 07:09 CONCLUSION: 1. Limited, noncontrast examination with no evidence of abscess. 2. Small posterior central protrusion at T5-6 with mild flattening of the anterior cord. 3. Posterior disc bulge at T6-7 with mild flattening of the anterior thecal sac. Chest X-Ray 06/08/18 11:16 CONCLUSION: A port is not seen. No acute cardiopulmonary process. Assessment and Plan - Assessment and Plan dictation to follow L knee aspirated. 60cc cloudy fluid. sent to lab for analysis await lab results for further recommendations
--- NOTE | 2018-06-09 11:44 | P.PNNS ---
Subjective Interval history: pt intubated, MRI spine completed. repeat CT Brain completed. critical care requesting he undergo a LAURIE requiring clearance from neurosurgery. Physical Exam Vital signs: Vital Signs 06/08/18 12:00 06/08/18 13:00 06/08/18 14:00 Temperature 98.8 F Pulse Rate 73 76 67 Respiratory Rate 15 17 25 H Blood Pressure 107/53 L 106/54 L 116/59 L Pulse Oximetry 97 99 98 06/08/18 15:00 06/08/18 17:45 06/08/18 18:00 Temperature 99.5 F Pulse Rate 77 93 H 90 Respiratory Rate 30 H 31 H 31 H Blood Pressure 123/71 96/54 L 95/54 L Pulse Oximetry 100 98 99 06/08/18 18:08 06/08/18 18:11 06/08/18 18:14 Temperature Pulse Rate 89 86 82 Respiratory Rate 32 H 31 H 32 H Blood Pressure 93/51 L 94/55 L 101/49 L Pulse Oximetry 99 99 99 06/08/18 18:17 06/08/18 18:20 06/08/18 18:23 Temperature Pulse Rate 83 83 83 Respiratory Rate 32 H 32 H 32 H Blood Pressure 105/49 L 93/55 L 94/44 L Pulse Oximetry 99 99 99 06/08/18 18:26 06/08/18 18:29 06/08/18 18:45 Temperature Pulse Rate 82 83 88 Respiratory Rate 33 H 33 H 33 H Blood Pressure 94/51 L 96/46 L 80/49 L Pulse Oximetry 99 99 100 06/08/18 18:48 06/08/18 19:00 06/08/18 19:15 Temperature Pulse Rate 82 85 83 Respiratory Rate 34 H 33 H 33 H Blood Pressure 87/45 L 94/50 L 99/50 L Pulse Oximetry 100 100 100 06/08/18 19:30 06/08/18 19:45 06/08/18 19:49 Temperature Pulse Rate 78 77 Respiratory Rate 33 H 33 H 32 H Blood Pressure 93/45 L 98/46 L Pulse Oximetry 100 100 06/08/18 20:00 06/08/18 20:04 06/08/18 20:15 Temperature 103.3 F H Pulse Rate 73 73 Respiratory Rate 30 H 30 H 30 H Blood Pressure 91/46 L 72/40 L Pulse Oximetry 99 100 06/08/18 20:19 12/04/18 20:30 06/08/18 20:45 Temperature Pulse Rate 75 76 75 Respiratory Rate 31 H 31 H 33 H Blood Pressure 84/49 L 86/54 L Pulse Oximetry 99 99 99 06/08/18 21:00 06/08/18 21:15 06/08/18 21:30 Temperature Pulse Rate 76 70 68 Respiratory Rate 33 H 32 H 32 H Blood Pressure 84/51 L 82/45 L 81/48 L Pulse Oximetry 99 99 100 06/08/18 21:45 06/08/18 22:00 06/08/18 22:15 Temperature 102 F H Pulse Rate 67 64 82 Respiratory Rate 29 H 29 H 33 H Blood Pressure 82/49 L 82/47 L 91/54 L Pulse Oximetry 100 100 99 06/08/18 22:30 06/08/18 22:45 06/08/18 23:00 Temperature Pulse Rate 79 82 82 Respiratory Rate 30 H 30 H 30 H Blood Pressure 100/55 L 103/55 L 105/51 L Pulse Oximetry 100 100 100 06/08/18 23:15 06/08/18 23:30 06/08/18 23:45 Temperature Pulse Rate 81 88 86 Respiratory Rate 31 H 31 H 31 H Blood Pressure 102/50 L 109/55 L 103/50 L Pulse Oximetry 100 100 100 06/09/18 00:00 06/09/18 00:15 06/09/18 00:30 Temperature 101.9 F H Pulse Rate 85 73 82 Respiratory Rate 35 H 31 H 31 H Blood Pressure 116/59 L 106/58 L 100/56 L Pulse Oximetry 100 100 100 06/09/18 00:45 06/09/18 01:00 06/09/18 01:13 Temperature Pulse Rate 80 79 Respiratory Rate 31 H 29 H 29 H Blood Pressure 100/55 L 100/59 L Pulse Oximetry 100 100 100 06/09/18 01:15 06/09/18 01:30 06/09/18 01:45 Temperature Pulse Rate 80 76 80 Respiratory Rate 29 H 29 H 27 H Blood Pressure 106/57 L 104/56 L 114/59 L Pulse Oximetry 100 100 100 06/09/18 02:00 06/09/18 02:30 06/09/18 02:45 Temperature 100.8 F H Pulse Rate 88 90 88 Respiratory Rate 28 H 30 H 31 H Blood Pressure 119/59 L 95/41 L 118/57 L Pulse Oximetry 100 100 100 06/09/18 03:00 06/09/18 03:15 06/09/18 03:30 Temperature Pulse Rate 84 83 85 Respiratory Rate 29 H 29 H 30 H Blood Pressure 113/50 L 114/53 L 110/53 L Pulse Oximetry 100 100 100 06/09/18 03:45 06/09/18 03:54 06/09/18 04:00 Temperature 101.6 F H Pulse Rate 81 91 H 87 Respiratory Rate 30 H 30 H 32 H Blood Pressure 110/56 L 114/50 L Pulse Oximetry 100 100 06/09/18 04:15 06/09/18 04:26 06/09/18 04:30 Temperature Pulse Rate 91 H 92 H Respiratory Rate 34 H 33 H 32 H Blood Pressure 102/55 L 133/61 Pulse Oximetry 100 100 100 06/09/18 04:33 06/09/18 04:45 06/09/18 05:00 Temperature Pulse Rate 95 H 85 Respiratory Rate 31 H 55 H 27 H Blood Pressure 125/60 107/58 L Pulse Oximetry 100 100 06/09/18 05:15 06/09/18 05:30 06/09/18 05:45 Temperature Pulse Rate 88 87 87 Respiratory Rate 29 H 29 H 29 H Blood Pressure 118/59 L 125/60 119/58 L Pulse Oximetry 99 99 98 06/09/18 06:00 06/09/18 07:57 06/09/18 08:01 Temperature Pulse Rate 85 79 Respiratory Rate 28 H 28 H 28 H Blood Pressure 125/61 Pulse Oximetry 99 100 Intake & Output 06/08/18 06/09/18 06/09/18 18:59 06:59 18:59 Intake Total 4163 / 4163 3555 / 3555 1100 / 1100 Output Total 650 / 650 650 / 650 Balance 3513 / 3513 2905 / 2905 1100 / 1100 Weight 141.1 kg Intake: IV 3785 / 3785 3555 / 3555 1100 / 1100 D5W Inj 1,000 ML @ 75 mls/hr IV 1000 / 1000 .CONT .[id number] [facility] Rx#:[id number] LR 1000 mL Inj 1,000 ML @ 75 260 / 260 mls/hr IV.CONT .[id number] [facility] Rx# :[id number] 1/2 Normal Saline Inj 1,000 ML 1000 / 1000 1000 / 1000 @ 125 mls/hr IV.CONT .Q8H [facility] Rx#:[id number] Ofirmev Inj 1,000 mg In 100 ml 200 / 200 @ 400 mls/hr IV.SIG Q8H PRN Rx# :[id number] Buminate 5% Inj 250 ML @ 250 250 / 250 mls/hr IV.SIG ONCE ONE Rx#: [id number] Alburx 5% Inj 500 ML @ 250 mls/ 500 / 500 hr IV.SIG ONCE ONE Rx#:[id number] Maxipime Inj 1,000 MG In NS Inj 100 / 100 100 ML @ 200 mls/hr IV.SIG Q12H [facility] Rx#:[id number] Cubicin Inj 800 MG In NS Inj 100 / 100 100 ML @ 200 mls/hr IV.SIG Q48H [facility] Rx#:[id number] D5W Inj 1,000 ML @ 75 mls/hr IV 300 / 300 .SIG .[id number] [facility] Rx#:[id number] NS Inj 1,000 ML @ 999 mls/hr IV 1000 / 1000 1000 / 1000 .SIG BOLUS ONE Rx#:[id number] 1/2 Normal Saline Inj 1,000 ML 1000 / 1000 @ Wide Open IV.SIG BOLUS ONE Rx #:[id number] Keppra Inj 500 MG In NS Inj 100 105 / 105 105 / 105 ML @ 400 mls/hr IV.SIG Q12H [facility] Rx#:[id number] Tube Feeding 68 / 68 Water Bolus Amount 250 / 250 Other 60 / 60 Output: Urine Amount (Catheter) 650 / 650 650 / 650 Indwelling Urethral Catheter 650 / 650 650 / 650 Other: Date of Last Bowel Movement 06/02/18 06/02/18 # Bowel Movements 0 - Urinary Catheter Management Indwelling Urethral Catheter Cath placed during this visit: yes Reason for continuing: Hourly intake/output Insertion date: 06/03/18 Insertion time: 03:00 Assessment and Plan - Plan 68 year old male with brainstem hemorrhage Septicemia, Bacteremia, ?source Head CT 06/08/18 00:00 CONCLUSION: 1. Resolving subarachnoid hemorrhage. No acute hemorrhage is identified. Cervical Spine MRI 06/08/18 07:09 CONCLUSION: 1. Increased signal anterior to the C6-C7 disc level and between the prominent anterior marginal osteophytes. The anterior longitudinal ligament is not seen. This could be the sequela of an injury in this region. The remaining aspect of the disc is intact. The vertebral bodies demonstrate normal signal. Prevertebral soft tissue swelling is not seen. This could be chronic. Fluid resembling a pseudarthrosis can also develop between osteophytes potentially. The remaining soft tissues appear intact. 2. Mild left lateral recess disc protrusion at the C2-C3 level. 3. Mild central disc protrusion at the C3-C4 level. 4. Mild disc bulge at the C5-C6 level and minimal disc bulge at the C4-C5 level. 5. Scattered neural foraminal narrowing as described above. Lumbar Spine MRI 06/08/18 07:09 CONCLUSION: 1. Severe stenosis at the L4-L5 level. 2. Moderate stenosis at the L2-L3 level. 3. Minimal disc bulge at the L1-L2 level with a small inferiorly directed extruded disc fragment at the right side. Significant stenosis is not seen at this level. 4. No focal fluid collection is identified. Thoracic Spine MRI 06/08/18 07:09 CONCLUSION: 1. Limited, noncontrast examination with no evidence of abscess. 2. Small posterior central protrusion at T5-6 with mild flattening of the anterior cord. 3. Posterior disc bulge at T6-7 with mild flattening of the anterior thecal sac. f/u CT Brain and MRI's reviewed by Dr. Hopkins, resolving brainstem ICH, no evidence of epidural abscess pt has been cleared by Dr. Hopkins for LAURIE and if needed anticoagulation
[2018-06-09] MEDS: Propofol 1000 mg/100 ml Inj 1,000 MG/100 ML BOTTLE IV.CONT PRN (13:08)
[2018-06-09 13:15] LABS: Appearance,Synovial Fluid Marked (Clear); Color,Synovial Fluid Yellow (Straw); Neutrophils,Synovial Fluid 96 % (0-25)
--- NOTE | 2018-06-09 13:58 | P.PNCA ---
Subjective Interval history: intubated Medications and Allergies Active Medications: Active Medications Acetaminophen (Tylenol) 650 mg PO Q6H PRN PRN Reason: PAIN 1-10 AND/OR FEVER >101F Last Admin: 06/06/18 12:05 Dose: 650 mg Al Hydroxide/Mg Hydroxide (Milk Of Magnfernando Liq) 30 ml PO Q12H PRN PRN Reason: Mild Constipation Albuterol (Duoneb Neb (Prn)) 1 ampul NEB Q2HR NEB PRN PRN Reason: WHEEZING Last Admin: 06/03/18 19:44 Dose: 1 ampul Albuterol (Duoneb Neb (Leidy)) 1 ampul NEB Q6HR NEB [facility] Last Admin: 06/09/18 08:07 Dose: Not Given Bisacodyl (Dulcolax Supp) 10 mg RECTAL DAILY PRN PRN Reason: SEVERE CONSITIPATION Chlorhexidine Gluconate (Peridex 0.12% Oral Kit) 15 ml OROPHARYNG BID@0800, 2000 [facility] Last Admin: 06/09/18 08:05 Dose: 15 ml Clonidine HCl (Catapres) 0.1 mg PO Q6H PRN PRN Reason: SBP>160, DBP>90 Dextrose (D50w Vial) 50 ml IV.PUSH UNSCH PRN PRN Reason: PER HYPOGLYCEMIA PROTOCOL Famotidine (Pepcid Pf Inj) 20 mg IV.PUSH Q12HR [facility] Last Admin: 06/09/18 08:06 Dose: 20 mg Glucagon (Glucagon Inj) 1 mg OTHER PRN PRN PRN Reason: for Hypoglycemia Protocol Levetiracetam 500 mg/ Sodium (Chloride) 105 mls @ 400 mls/hr IV.SIG Q12H [facility] Last Infusion: 06/09/18 04:49 Dose: Infused Sodium Phosphate 30 mmol/ (Sodium Chloride) 260 mls @ 42 mls/hr IV.SIG UNSCH PRN PRN Reason: For Phosphorus < 2.5 mg/dL Dexmedetomidine HCl 200 mcg/ (Sodium Chloride) 50 mls @ 6.65 mls/hr IV.CONT TITRATE PRN; Protocol PRN Reason: Per Protocol Last Titration: 06/08/18 18:51 Dose: 0.4 mcg/kg/hr, 13.3 mls/hr Acetaminophen (Ofirmev Inj) 1,000 mg in 100 mls @ 400 mls/hr IV.SIG Q8H PRN PRN Reason: FEVER > 101 F Last Infusion: 06/09/18 04:48 Dose: Infused Propofol (Diprivan 1000 Mg/100 Ml Inj) 1,000 mg in 100 mls @ 3.972 mls/hr IV.CONT TITRATE PRN; Protocol PRN Reason: Per Protocol Last Admin: 06/09/18 13:08 Dose: 5 mcg/kg/min, 3.97 mls/hr Norepinephrine Bitartrate (Levophed-Dextrose 4 Mg/250 Ml Drip) 4 mg in 250 mls @ 7.5 mls/hr IV.SIG TITRATE PRN; Protocol PRN Reason: Per Protocol Sodium Chloride (1/2 Normal Saline Inj) 1,000 mls @ 125 mls/hr IV.CONT .Q8H [facility] Last Admin: 06/09/18 13:30 Dose: Not Given Daptomycin 800 mg/ Sodium (Chloride) 100 mls @ 200 mls/hr IV.SIG Q48H [facility] Last Infusion: 06/08/18 18:20 Dose: Infused Cefepime HCl 1,000 mg/ Sodium (Chloride) 100 mls @ 200 mls/hr IV.SIG Q12H [facility] Last Infusion: 06/09/18 09:13 Dose: Infused Insulin Human Regular (Novolin R Correctional Sugar Inj) 0 units SQ Q4HR [facility]; Protocol Last Admin: 06/09/18 13:28 Dose: 1 units Labetalol HCl (Trandate Inj) 10 mg IV.PUSH Q2H PRN PRN Reason: BP > 140/90 Last Admin: 06/07/18 02:07 Dose: 10 mg Lactulose (Lactulose Liq) 30 ml PO DAILY PRN PRN Reason: SEVERE CONSITIPATION Miscellaneous Medication () 1 each OROPHARYNG 0000,0400,1200,1600 [facility] Last Admin: 06/09/18 13:10 Dose: 1 each Mupirocin (Bactroban 2% Nasal Oint) 1 applicatio EACH NARE BID [facility] Stop: 06/10/18 09:01 Last Admin: 06/09/18 08:05 Dose: 1 applicatio Senna/Docusate Sodium (Shasha-Colace) 1 tab PO BID [facility] Last Admin: 06/09/18 08:06 Dose: 1 tab Sennosides (Senokot) 17.2 mg PO Q12H PRN PRN Reason: Moderate Constipation Sodium Chloride (Ns Flush) 2 ml IV.FLUSH BID [facility] Last Admin: 06/09/18 08:05 Dose: 2 ml Sodium Chloride (Ns Flush) 2 ml IV.FLUSH PRN PRN PRN Reason: FLUSH AFTER USING IV ACCESS Sterile Water (Free Water) 250 ml G-TUBE Q8HR [facility] Last Admin: 06/09/18 13:30 Dose: 250 ml Terbutaline Sulfate (Brethine Inj) 1 mg SQ UNSCH PRN PRN Reason: For Extravasation Allergies Allergy/AdvReac Type Severity Reaction Status Date / Time No Known Allergies Allergy Verified 06/03/18 01:32 Physical Exam Vital signs: Vital Signs 06/08/18 14:00 06/08/18 15:00 06/08/18 17:45 Temperature 99.5 F Pulse Rate 67 77 93 H Respiratory Rate 25 H 30 H 31 H Blood Pressure 116/59 L 123/71 96/54 L Pulse Oximetry 98 100 98 06/08/18 18:00 06/08/18 18:08 06/08/18 18:11 Temperature Pulse Rate 90 89 86 Respiratory Rate 31 H 32 H 31 H Blood Pressure 95/54 L 93/51 L 94/55 L Pulse Oximetry 99 99 99 06/08/18 18:14 06/08/18 18:17 06/08/18 18:20 Temperature Pulse Rate 82 83 83 Respiratory Rate 32 H 32 H 32 H Blood Pressure 101/49 L 105/49 L 93/55 L Pulse Oximetry 99 99 99 06/08/18 18:23 06/08/18 18:26 06/08/18 18:29 Temperature Pulse Rate 83 82 83 Respiratory Rate 32 H 33 H 33 H Blood Pressure 94/44 L 94/51 L 96/46 L Pulse Oximetry 99 99 99 06/08/18 18:45 06/08/18 18:48 06/08/18 19:00 Temperature Pulse Rate 88 82 85 Respiratory Rate 33 H 34 H 33 H Blood Pressure 80/49 L 87/45 L 94/50 L Pulse Oximetry 100 100 100 06/08/18 19:15 06/08/18 19:30 06/08/18 19:45 Temperature Pulse Rate 83 78 77 Respiratory Rate 33 H 33 H 33 H Blood Pressure 99/50 L 93/45 L 98/46 L Pulse Oximetry 100 100 100 06/08/18 19:49 06/08/18 20:00 06/08/18 20:04 Temperature 103.3 F H Pulse Rate 73 Respiratory Rate 32 H 30 H 30 H Blood Pressure 91/46 L Pulse Oximetry 99 06/08/18 20:15 06/08/18 20:19 06/08/18 20:30 Temperature Pulse Rate 73 75 76 Respiratory Rate 30 H 31 H 31 H Blood Pressure 72/40 L 84/49 L Pulse Oximetry 100 99 99 06/08/18 20:45 06/08/18 21:00 06/08/18 21:15 Temperature Pulse Rate 75 76 70 Respiratory Rate 33 H 33 H 32 H Blood Pressure 86/54 L 84/51 L 82/45 L Pulse Oximetry 99 99 99 06/08/18 21:30 06/08/18 21:45 06/08/18 22:00 Temperature 102 F H Pulse Rate 68 67 64 Respiratory Rate 32 H 29 H 29 H Blood Pressure 81/48 L 82/49 L 82/47 L Pulse Oximetry 100 100 100 06/08/18 22:15 06/08/18 22:30 06/08/18 22:45 Temperature Pulse Rate 82 79 82 Respiratory Rate 33 H 30 H 30 H Blood Pressure 91/54 L 100/55 L 103/55 L Pulse Oximetry 99 100 100 06/08/18 23:00 06/08/18 23:15 06/08/18 23:30 Temperature Pulse Rate 82 81 88 Respiratory Rate 30 H 31 H 31 H Blood Pressure 105/51 L 102/50 L 109/55 L Pulse Oximetry 100 100 100 06/08/18 23:45 06/09/18 00:00 06/09/18 00:15 Temperature 101.9 F H Pulse Rate 86 85 73 Respiratory Rate 31 H 35 H 31 H Blood Pressure 103/50 L 116/59 L 106/58 L Pulse Oximetry 100 100 100 06/09/18 00:30 06/09/18 00:45 06/09/18 01:00 Temperature Pulse Rate 82 80 79 Respiratory Rate 31 H 31 H 29 H Blood Pressure 100/56 L 100/55 L 100/59 L Pulse Oximetry 100 100 100 06/09/18 01:13 06/09/18 01:15 06/09/18 01:30 Temperature Pulse Rate 80 76 Respiratory Rate 29 H 29 H 29 H Blood Pressure 106/57 L 104/56 L Pulse Oximetry 100 100 100 06/09/18 01:45 06/09/18 02:00 06/09/18 02:30 Temperature 100.8 F H Pulse Rate 80 88 90 Respiratory Rate 27 H 28 H 30 H Blood Pressure 114/59 L 119/59 L 95/41 L Pulse Oximetry 100 100 100 06/09/18 02:45 06/09/18 03:00 06/09/18 03:15 Temperature Pulse Rate 88 84 83 Respiratory Rate 31 H 29 H 29 H Blood Pressure 118/57 L 113/50 L 114/53 L Pulse Oximetry 100 100 100 06/09/18 03:30 06/09/18 03:45 06/09/18 03:54 Temperature Pulse Rate 85 81 91 H Respiratory Rate 30 H 30 H 30 H Blood Pressure 110/53 L 110/56 L Pulse Oximetry 100 100 06/09/18 04:00 06/09/18 04:15 06/09/18 04:26 Temperature 101.6 F H Pulse Rate 87 91 H Respiratory Rate 32 H 34 H 33 H Blood Pressure 114/50 L 102/55 L Pulse Oximetry 100 100 100 06/09/18 04:30 06/09/18 04:33 06/09/18 04:45 Temperature Pulse Rate 92 H 95 H Respiratory Rate 32 H 31 H 55 H Blood Pressure 133/61 125/60 Pulse Oximetry 100 100 06/09/18 05:00 06/09/18 05:15 06/09/18 05:30 Temperature Pulse Rate 85 88 87 Respiratory Rate 27 H 29 H 29 H Blood Pressure 107/58 L 118/59 L 125/60 Pulse Oximetry 100 99 99 06/09/18 05:45 06/09/18 06:00 06/09/18 06:39 Temperature Pulse Rate 87 85 80 Respiratory Rate 29 H 28 H 28 H Blood Pressure 119/58 L 125/61 132/61 Pulse Oximetry 98 99 99 06/09/18 07:09 06/09/18 07:39 06/09/18 07:57 Temperature Pulse Rate 84 81 Respiratory Rate 29 H 29 H 28 H Blood Pressure 142/65 H 146/65 H Pulse Oximetry 100 100 100 06/09/18 08:01 06/09/18 08:09 06/09/18 08:39 Temperature Pulse Rate 79 84 81 Respiratory Rate 28 H 29 H 29 H Blood Pressure 149/65 H 156/70 H Pulse Oximetry 100 100 06/09/18 09:09 06/09/18 09:39 06/09/18 10:09 Temperature Pulse Rate 85 83 68 Respiratory Rate 28 H 28 H 26 H Blood Pressure 150/67 H 148/65 H 135/62 Pulse Oximetry 100 100 100 06/09/18 10:39 06/09/18 11:09 06/09/18 11:39 Temperature Pulse Rate 80 78 79 Respiratory Rate 29 H 28 H 24 Blood Pressure 154/70 H 142/65 H 149/65 H Pulse Oximetry 100 100 100 06/09/18 11:47 06/09/18 12:00 06/09/18 12:13 Temperature 99.2 F Pulse Rate 71 70 Respiratory Rate 25 H 18 26 H Blood Pressure 140/64 138/64 Pulse Oximetry 100 100 100 Intake & Output 06/08/18 06/09/18 06/09/18 18:59 06:59 18:59 Intake Total 4163 / 4163 3555 / 3555 1200 / 1200 Output Total 650 / 650 650 / 650 Balance 3513 / 3513 2905 / 2905 1200 / 1200 Weight 141.1 kg Intake: IV 3785 / 3785 3555 / 3555 1200 / 1200 D5W Inj 1,000 ML @ 75 mls/hr IV 1000 / 1000 .CONT .[id number] [facility] Rx#:[id number] LR 1000 mL Inj 1,000 ML @ 75 260 / 260 mls/hr IV.CONT .[id number] [facility] Rx# :[id number] Diprivan 1000 mg/100 ml Inj 1, 100 / 100 000 mg In 100 ml @ 5 MCG/KG/MIN 3.972 mls/hr IV.CONT TITRATE PRN Rx#:[id number] 1/2 Normal Saline Inj 1,000 ML 1000 / 1000 1000 / 1000 @ 125 mls/hr IV.CONT .Q8H [facility] Rx#:[id number] Ofirmev Inj 1,000 mg In 100 ml 200 / 200 @ 400 mls/hr IV.SIG Q8H PRN Rx# :[id number] Buminate 5% Inj 250 ML @ 250 250 / 250 mls/hr IV.SIG ONCE ONE Rx#: [id number] Alburx 5% Inj 500 ML @ 250 mls/ 500 / 500 hr IV.SIG ONCE ONE Rx#:[id number] Maxipime Inj 1,000 MG In NS Inj 100 / 100 100 ML @ 200 mls/hr IV.SIG Q12H [facility] Rx#:[id number] Cubicin Inj 800 MG In NS Inj 100 / 100 100 ML @ 200 mls/hr IV.SIG Q48H [facility] Rx#:[id number] D5W Inj 1,000 ML @ 75 mls/hr IV 300 / 300 .SIG .[id number] [facility] Rx#:[id number] NS Inj 1,000 ML @ 999 mls/hr IV 1000 / 1000 1000 / 1000 .SIG BOLUS ONE Rx#:[id number] 1/2 Normal Saline Inj 1,000 ML 1000 / 1000 @ Wide Open IV.SIG BOLUS ONE Rx #:[id number] Keppra Inj 500 MG In NS Inj 100 105 / 105 105 / 105 ML @ 400 mls/hr IV.SIG Q12H [facility] Rx#:[id number] Tube Feeding 68 / 68 Water Bolus Amount 250 / 250 Other 60 / 60 Output: Urine Amount (Catheter) 650 / 650 650 / 650 Indwelling Urethral Catheter 650 / 650 650 / 650 Other: Date of Last Bowel Movement 06/02/18 06/02/18 06/02/18 # Bowel Movements 0 - Constitutional no acute distress - Routine HEENT Exam Head: Present: normocephalic - Routine Neck Exam Present: supple - Routine Respiratory Exam Present: CTA bilaterally - Routine Cardiovascular Exam Present: S1, S2 - Routine Abdominal Exam Present: soft - Routine Extremities Exam Comments: no sourav - Urinary Catheter Management Indwelling Urethral Catheter Cath placed during this visit: yes Reason for continuing: Hourly intake/output Insertion date: 06/03/18 Insertion time: 03:00 Results 06/09/18 04:01 06/09/18 04:01 Cardiac Enzymes 06/07/18 06/08/18 06/08/18 Range/Units 14:19 05:54 05:54 AST 74 H 85 H Cancelled (15-37) U/L CK-MB (CK-2) (0.5-3.6) ng/mL B-Natriuretic Peptide (0-100) pg/mL 06/08/18 06/09/18 06/09/18 Range/Units 18:46 04:01 04:01 AST 116 H (15-37) U/L CK-MB (CK-2) 5.6 H (0.5-3.6) ng/mL B-Natriuretic Peptide 89 (0-100) pg/mL Coagulation 06/09/18 Range/Units 04:01 B-Natriuretic Peptide 89 (0-100) pg/mL CBC 06/08/18 06/09/18 Range/Units 05:54 04:01 WBC 15.4 H 13.9 H (4.0-11.0) th/mm3 RBC 3.88 L 3.26 L (4.50-5.90) mil/mm3 Hgb 11.4 L 9.6 L (13.0-17.0) gm/dL Hct 34.8 L 29.8 L (39.0-51.0) % Plt Count 219 166 (150-450) th/mm3 Neut # (Auto) 11.9 H 11.4 H (1.8-7.7) th/mm3 Lymph # (Auto) 1.8 1.3 (1.0-4.8) th/mm3 [place] # (Auto) 1.5 H 0.9 (0.0-0.9) th/mm3 Eos # (Auto) 0.1 0.3 (0.0-0.4) th/mm3 Baso # (Auto) 0.1 0.0 (0.0-0.2) th/mm3 Comprehensive Metabolic Panel 06/07/18 06/08/18 06/08/18 Range/Units 14:19 05:54 05:54 Sodium 163 H* 163 H* Cancelled (136-145) meq/L Potassium 4.2 4.7 Cancelled (3.5-5.1) meq/L Chloride 137 H 134 H Cancelled (98-107) meq/L Carbon Dioxide 20.2 L 22.0 Cancelled (21.0-32.0) meq/L BUN 42 H 69 H Cancelled (7-18) mg/dL Creatinine 1.64 H 2.86 H Cancelled (0.60-1.30) mg/dL Calcium 8.5 D 8.2 L Cancelled (8.5-10.1) mg/dL AST 74 H 85 H Cancelled (15-37) U/L ALT 42 45 Cancelled (12-78) U/L Alkaline Phosphatase 56 64 Cancelled (45-117) U/L Total Protein 6.6 6.5 Cancelled (6.4-8.2) g/dL Albumin 1.9 L 1.9 L Cancelled (3.4-5.0) g/dL 06/08/18 06/08/18 06/09/18 Range/Units 18:46 18:46 04:01 Sodium Cancelled 163 H* 160 H* (136-145) meq/L Potassium 4.6 4.6 (3.5-5.1) meq/L Chloride 130 H 131 H (98-107) meq/L Carbon Dioxide 21.1 20.6 L (21.0-32.0) meq/L BUN 78 H 81 H (7-18) mg/dL Creatinine 3.26 H 3.50 H (0.60-1.30) mg/dL Calcium 7.9 L 7.3 L* (8.5-10.1) mg/dL AST 116 H (15-37) U/L ALT 46 (12-78) U/L Alkaline Phosphatase 54 (45-117) U/L Total Protein 6.2 L (6.4-8.2) g/dL Albumin 2.1 L (3.4-5.0) g/dL Intake and Output 06/08/18 06/09/18 06/09/18 22:59 06:59 14:59 Intake Total 2933 / 2933 1205 / 1205 1200 / 1200 Output Total 650 / 650 650 / 650 Balance 2283 / 2283 555 / 555 1200 / 1200 Intake: IV 2555 / 2555 1205 / 1205 1200 / 1200 Diprivan 1000 mg/100 ml Inj 1, 100 / 100 000 mg In 100 ml @ 5 MCG/KG/MIN 3.972 mls/hr IV.CONT TITRATE PRN Rx#:[id number] 1/2 Normal Saline Inj 1,000 ML 1000 / 1000 1000 / 1000 @ 125 mls/hr IV.CONT .Q8H [facility] Rx#:[id number] Ofirmev Inj 1,000 mg In 100 ml 100 / 100 100 / 100 @ 400 mls/hr IV.SIG Q8H PRN Rx# :[id number] Buminate 5% Inj 250 ML @ 250 250 / 250 mls/hr IV.SIG ONCE ONE Rx#: [id number] Maxipime Inj 1,000 MG In NS Inj 100 / 100 100 ML @ 200 mls/hr IV.SIG Q12H [facility] Rx#:[id number] Cubicin Inj 800 MG In NS Inj 100 / 100 100 ML @ 200 mls/hr IV.SIG Q48H [facility] Rx#:[id number] NS Inj 1,000 ML @ 999 mls/hr IV 1000 / 1000 .SIG BOLUS ONE Rx#:[id number] 1/2 Normal Saline Inj 1,000 ML 1000 / 1000 @ Wide Open IV.SIG BOLUS ONE Rx #:[id number] Keppra Inj 500 MG In NS Inj 100 105 / 105 105 / 105 ML @ 400 mls/hr IV.SIG Q12H [facility] Rx#:[id number] Tube Feeding 68 / 68 Water Bolus Amount 250 / 250 Other 60 / 60 Output: Urine Amount (Catheter) 650 / 650 650 / 650 Indwelling Urethral Catheter 650 / 650 650 / 650 Other: Date of Last Bowel Movement 06/02/18 06/02/18 06/02/18 # Bowel Movements 0 Weight 141.1 kg - Imaging and Cardiology Imaging: Impressions Head CT 06/08/18 00:00 CONCLUSION: 1. Resolving subarachnoid hemorrhage. No acute hemorrhage is identified. . Knee MRI 06/08/18 07:08 CONCLUSION: 1. Nonspecific joint effusion and moderate severity synovitis. Also nonspecific subcutaneous edema. Nothing organized or drainable. 2. Medial compartment predominant osteoarthritis. 3. Tears of the medial and lateral menisci as above. Cervical Spine MRI 06/08/18 07:09 CONCLUSION: 1. Increased signal anterior to the C6-C7 disc level and between the prominent anterior marginal osteophytes. The anterior longitudinal ligament is not seen. This could be the sequela of an injury in this region. The remaining aspect of the disc is intact. The vertebral bodies demonstrate normal signal. Prevertebral soft tissue swelling is not seen. This could be chronic. Fluid resembling a pseudarthrosis can also develop between osteophytes potentially. The remaining soft tissues appear intact. 2. Mild left lateral recess disc protrusion at the C2-C3 level. 3. Mild central disc protrusion at the C3-C4 level. 4. Mild disc bulge at the C5-C6 level and minimal disc bulge at the C4-C5 level. 5. Scattered neural foraminal narrowing as described above. Lumbar Spine MRI 06/08/18 07:09 CONCLUSION: 1. Severe stenosis at the L4-L5 level. 2. Moderate stenosis at the L2-L3 level. 3. Minimal disc bulge at the L1-L2 level with a small inferiorly directed extruded disc fragment at the right side. Significant stenosis is not seen at this level. 4. No focal fluid collection is identified. Thoracic Spine MRI 06/08/18 07:09 CONCLUSION: 1. Limited, noncontrast examination with no evidence of abscess. 2. Small posterior central protrusion at T5-6 with mild flattening of the anterior cord. 3. Posterior disc bulge at T6-7 with mild flattening of the anterior thecal sac. Chest X-Ray 06/08/18 11:16 CONCLUSION: A port is not seen. No acute cardiopulmonary process. 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 Status: Acute (4) Encephalopathy acute Code(s): G93.40 - Encephalopathy, unspecified Status: Acute (5) Acute kidney failure Code(s): N17.9 - Acute kidney failure, unspecified Status: Acute (6) Diabetes Code(s): E11.9 - Type 2 diabetes mellitus without complications Status: Chronic (7) Hypertension Code(s): I10 - Essential (primary) hypertension Status: Chronic (8) Obesity Code(s): E66.9 - Obesity, unspecified Status: Chronic (9) Severe sepsis Code(s): A41.9 - Sepsis, unspecified organism; R65.20 - Severe sepsis without septic shock Status: Acute - Plan 1.) Bacteremia - mohsen 06/10/18, d/w nurse and echo and Dr Tinoco (3) Brain stem hemorrhage Qualifiers: Intracerebral hemorrhage etiology: nontraumatic
[2018-06-09] MEDS: Labetalol HCl Inj 100 MG/20 ML Vial IV.PUSH PRN (16:36)
[2018-06-10] MEDS: Oral Hygiene Kit OROPHARYNG SCH ×4 (02:57→17:06)
[2018-06-10] MEDS: Propofol 1000 mg/100 ml Inj 1,000 MG/100 ML BOTTLE IV.CONT PRN ×2 (03:35→13:30)
[2018-06-10] MEDS: Insulin NovoLIN Regular Correctional Sugar Inj SQ SCH ×6 (04:00→20:50)
[2018-06-10] MEDS: Sodium Chloride 0.45 % Inj 1,000 ML IV.CONT SCH ×3 (06:39→20:51)
[2018-06-10 07:06] LABS: Baso # (Auto) 0.1 th/mm3 (0.0-0.2); Baso % (Auto) 0.5 % (0.0-2.0); Eos # (Auto) 0.4 th/mm3 (0.0-0.4); Eos % (Auto) 2.8 % (0.0-4.0); Hematocrit 30.7 % (39.0-51.0); Hemoglobin 9.9 gm/dL (13.0-17.0); Lymph # (Auto) 1.3 th/mm3 (1.0-4.8); Lymph % (Auto) 8.3 % (9.0-44.0); Mean Corpuscular HGB Conc 32.3 % (32.0-36.0); Mean Corpuscular Hemoglobin 29.5 pg (27.0-34.0); Mean Corpuscular Volume 91.4 fL (80.0-100.0); Mono # (Auto) 0.8 th/mm3 (0.0-0.9); Mono % (Auto) 5.4 % (0.0-8.0); Neut # (Auto) 12.9 th/mm3 (1.8-7.7); Platelet Count 193 th/mm3 (150-450); Red Blood Count 3.36 mil/mm3 (4.50-5.90); White Blood Count 15.6 th/mm3 (4.0-11.0)
[2018-06-10 07:55] LABS: Albumin 1.9 g/dL (3.4-5.0); Calcium 7.3 mg/dL (8.5-10.1); Carbon Dioxide 20.2 meq/L (21.0-32.0); Phosphorus 4.9 mg/dL (2.5-4.9); Potassium 4.5 meq/L (3.5-5.1)
--- NOTE | 2018-06-10 08:04 | P.PNOP ---
Subjective Interval history: intubated Physical Exam Vital signs: Vital Signs 06/09/18 08:09 06/09/18 08:39 06/09/18 09:09 Temperature Pulse Rate 84 81 85 Respiratory Rate 29 H 29 H 28 H Blood Pressure 149/65 H 156/70 H 150/67 H Pulse Oximetry 100 100 100 06/09/18 09:39 06/09/18 10:09 06/09/18 10:39 Temperature Pulse Rate 83 68 80 Respiratory Rate 28 H 26 H 29 H Blood Pressure 148/65 H 135/62 154/70 H Pulse Oximetry 100 100 100 06/09/18 11:09 06/09/18 11:39 06/09/18 11:47 Temperature Pulse Rate 78 79 71 Respiratory Rate 28 H 24 25 H Blood Pressure 142/65 H 149/65 H 140/64 Pulse Oximetry 100 100 100 06/09/18 12:00 06/09/18 12:13 06/09/18 12:15 Temperature 99.2 F Pulse Rate 70 76 Respiratory Rate 18 26 H 28 H Blood Pressure 138/64 139/64 Pulse Oximetry 100 100 100 06/09/18 12:30 06/09/18 12:45 06/09/18 13:00 Temperature Pulse Rate 78 80 77 Respiratory Rate 28 H 27 H 28 H Blood Pressure 143/67 H 147/67 H 147/65 H Pulse Oximetry 100 100 100 06/09/18 13:15 06/09/18 13:30 06/09/18 13:45 Temperature Pulse Rate 78 71 78 Respiratory Rate 27 H 28 H 27 H Blood Pressure 149/67 H 143/64 H 143/59 H Pulse Oximetry 100 100 100 06/09/18 14:00 06/09/18 14:15 06/09/18 14:30 Temperature Pulse Rate 74 73 84 Respiratory Rate 26 H 26 H 28 H Blood Pressure 145/63 H 146/66 H 161/71 H Pulse Oximetry 100 100 100 06/09/18 14:45 06/09/18 15:00 06/09/18 15:15 Temperature Pulse Rate 89 81 82 Respiratory Rate 28 H 28 H 28 H Blood Pressure 163/72 H 156/69 H 153/67 H Pulse Oximetry 100 100 100 06/09/18 15:30 06/09/18 15:45 06/09/18 16:00 Temperature 99.2 F Pulse Rate 85 78 81 Respiratory Rate 28 H 28 H 27 H Blood Pressure 157/71 H 158/72 H 153/67 H Pulse Oximetry 100 100 100 06/09/18 16:15 06/09/18 16:30 06/09/18 16:36 Temperature Pulse Rate 83 87 84 Respiratory Rate 28 H 28 H 28 H Blood Pressure 150/65 H 150/67 H 150/67 H Pulse Oximetry 100 100 100 06/09/18 16:40 06/09/18 16:45 06/09/18 17:00 Temperature Pulse Rate 61 71 Respiratory Rate 25 H 26 H 28 H Blood Pressure 110/57 L 123/60 Pulse Oximetry 100 100 100 06/09/18 17:15 06/09/18 17:30 06/09/18 17:40 Temperature Pulse Rate 72 70 82 Respiratory Rate 27 H 27 H 27 H Blood Pressure 125/55 L 127/60 Pulse Oximetry 100 100 06/09/18 17:45 06/09/18 18:00 06/09/18 18:15 Temperature Pulse Rate 68 70 77 Respiratory Rate 28 H 27 H 28 H Blood Pressure 127/60 129/59 L 138/63 Pulse Oximetry 100 100 100 06/09/18 18:30 06/09/18 19:28 06/09/18 20:15 Temperature 99.7 F H Pulse Rate 75 73 69 Respiratory Rate 28 H 26 H 28 H Blood Pressure 138/63 142/64 H Pulse Oximetry 100 100 100 06/09/18 20:30 06/09/18 20:45 06/09/18 21:00 Temperature Pulse Rate 73 78 80 Respiratory Rate 26 H 26 H 28 H Blood Pressure 138/63 140/66 142/64 H Pulse Oximetry 100 100 100 06/09/18 21:15 06/09/18 21:30 06/09/18 21:45 Temperature Pulse Rate 78 74 81 Respiratory Rate 27 H 28 H 28 H Blood Pressure 143/63 H 136/61 143/65 H Pulse Oximetry 100 100 100 06/09/18 22:00 06/09/18 22:15 06/09/18 22:30 Temperature Pulse Rate 78 77 83 Respiratory Rate 27 H 28 H 29 H Blood Pressure 142/65 H 137/58 L 145/67 H Pulse Oximetry 100 100 100 06/09/18 22:45 06/09/18 23:00 12/05/18 23:15 Temperature Pulse Rate 77 81 81 Respiratory Rate 28 H 28 H 29 H Blood Pressure 141/63 H 142/64 H 137/63 Pulse Oximetry 100 100 100 06/09/18 23:30 06/09/18 23:45 06/10/18 00:00 Temperature 100.0 F H Pulse Rate 78 80 75 Respiratory Rate 28 H 29 H 28 H Blood Pressure 134/62 141/64 H 140/63 Pulse Oximetry 100 100 100 06/10/18 00:15 06/10/18 00:30 06/10/18 00:45 Temperature Pulse Rate 75 80 79 Respiratory Rate 28 H 29 H 28 H Blood Pressure 138/64 139/63 139/63 Pulse Oximetry 100 100 100 06/10/18 01:00 06/10/18 01:15 06/10/18 01:16 Temperature Pulse Rate 76 74 Respiratory Rate 28 H 28 H 28 H Blood Pressure 131/62 135/62 Pulse Oximetry 100 100 100 06/10/18 01:30 06/10/18 01:45 06/10/18 02:00 Temperature Pulse Rate 77 69 71 Respiratory Rate 29 H 28 H 30 H Blood Pressure 143/66 H 141/65 H 141/63 H Pulse Oximetry 100 100 100 06/10/18 02:15 06/10/18 02:30 06/10/18 02:45 Temperature 100.0 F H Pulse Rate 75 73 75 Respiratory Rate 30 H 29 H 28 H Blood Pressure 139/61 136/63 Pulse Oximetry 100 100 100 06/10/18 03:00 06/10/18 03:02 06/10/18 03:15 Temperature Pulse Rate 76 77 74 Respiratory Rate 30 H 28 H 29 H Blood Pressure 136/63 Pulse Oximetry 100 100 100 06/10/18 03:30 06/10/18 03:45 06/10/18 04:00 Temperature 99.1 F Pulse Rate 74 73 75 Respiratory Rate 29 H 27 H 27 H Blood Pressure 142/62 H Pulse Oximetry 100 100 100 06/10/18 04:02 06/10/18 04:15 06/10/18 04:30 Temperature Pulse Rate 71 71 71 Respiratory Rate 28 H 28 H 27 H Blood Pressure 142/62 H Pulse Oximetry 100 100 100 06/10/18 04:36 06/10/18 04:45 06/10/18 05:00 Temperature Pulse Rate 75 81 86 Respiratory Rate 27 H 29 H 30 H Blood Pressure Pulse Oximetry 100 100 100 06/10/18 05:02 06/10/18 05:15 06/10/18 05:30 Temperature Pulse Rate 85 91 H 93 H Respiratory Rate 39 H 62 H 61 H Blood Pressure 160/70 H Pulse Oximetry 100 100 100 06/10/18 05:45 06/10/18 05:53 06/10/18 06:00 Temperature Pulse Rate 91 H 93 H 88 Respiratory Rate 43 H 47 H 36 H Blood Pressure 155/67 H Pulse Oximetry 100 100 100 06/10/18 06:02 06/10/18 06:15 06/10/18 06:30 Temperature Pulse Rate 86 84 83 Respiratory Rate 34 H 59 H 58 H Blood Pressure 138/63 Pulse Oximetry 100 100 100 06/10/18 07:02 06/10/18 07:25 Temperature Pulse Rate 76 88 Respiratory Rate 60 H 25 H Blood Pressure 133/59 L Pulse Oximetry 100 100 Intake & Output 06/09/18 06/10/18 06/10/18 18:59 06:59 18:59 Intake Total 2595 / 2595 3015 / 3015 105 / 105 Output Total 1450 / 1450 1000 / 1000 Balance 1145 / 1145 2014 105 / 105 Weight 136.1 kg Intake: IV 2305 / 2305 2200 / 2200 105 / 105 Diprivan 1000 mg/100 ml Inj 1, 100 / 100 100 / 100 000 mg In 100 ml @ 5 MCG/KG/MIN 3.972 mls/hr IV.CONT TITRATE PRN Rx#:[id number] 1/2 Normal Saline Inj 1,000 ML 1999 / 1999 1999 / 1999 @ 125 mls/hr IV.CONT .Q8H JACOB Rx#:[id number] Maxipime Inj 1,000 MG In NS Inj 100 / 100 100 / 100 100 ML @ 200 mls/hr IV.SIG Q12H JACOB Rx#:[id number] Keppra Inj 500 MG In NS Inj 100 105 / 105 105 / 105 ML @ 400 mls/hr IV.SIG Q12H JACOB Rx#:[id number] Tube Feeding 40 / 40 395 / 395 Water Bolus Amount 250 / 250 420 / 420 Output: Urine Amount (Catheter) 1450 / 1450 1000 / 1000 Indwelling Urethral Catheter 1450 / 1450 1000 / 1000 Other: Date of Last Bowel Movement 06/02/18 06/02/18 Narrative: L knee mild swelling abrasions without sign of infection edema LLE distal pulses palpable - Urinary Catheter Management Indwelling Urethral Catheter Cath placed during this visit: yes Reason for continuing: Hourly intake/output Insertion date: 06/03/18 Insertion time: 03:00 Results - Labs CBC & Chem 7: 06/10/18 06:20 06/10/18 06:20 Laboratory Results - last 24 hr 06/09/18 06/09/18 06/09/18 11:30 11:30 11:35 WBC RBC Hgb Hct MCV MCH MCHC RDW Plt Count MPV Neut % (Auto) Lymph % (Auto) Emmet % (Auto) Eos % (Auto) Baso % (Auto) Neut # (Auto) Lymph # (Auto) Emmet # (Auto) Eos # (Auto) Baso # (Auto) WBC Differential Differential Comment Sodium Potassium Chloride Carbon Dioxide Anion Gap BUN Creatinine Estimated GFR POC Glucose Random Glucose Calcium Phosphorus Total Protein (PEP) Albumin Ur Random Creatinine 53 Ur Random Sodium 57 Synovial Color Yellow Synovial Appearance Marked H Synovial RBC 7950 H Synovial Nuc Cells 70074 H Synovial Neutrophils 96 H Synovial Monocytes 3 Synovial Lining Cell 1 Synovial Fluid Comment Complement C3 Complement C4 06/09/18 06/09/18 06/09/18 13:07 18:09 21:35 WBC RBC Hgb Hct MCV MCH MCHC RDW Plt Count MPV Neut % (Auto) Lymph % (Auto) Emmet % (Auto) Eos % (Auto) Baso % (Auto) Neut # (Auto) Lymph # (Auto) Emmet # (Auto) Eos # (Auto) Baso # (Auto) WBC Differential Differential Comment Sodium Potassium Chloride Carbon Dioxide Anion Gap BUN Creatinine Estimated GFR POC Glucose 184 H 135 H 173 H Random Glucose Calcium Phosphorus Total Protein (PEP) Albumin Ur Random Creatinine Ur Random Sodium Synovial Color Synovial Appearance Synovial RBC Synovial Nuc Cells Synovial Neutrophils Synovial Monocytes Synovial Lining Cell Synovial Fluid Comment Complement C3 Complement C4 06/10/18 06/10/18 06/10/18 02:55 06:20 06:20 WBC 15.6 H RBC 3.36 L Hgb 9.9 L Hct 30.7 L MCV 91.4 MCH 29.5 MCHC 32.3 RDW 18.0 H Plt Count 193 MPV 10.0 Neut % (Auto) 83.0 H Lymph % (Auto) 8.3 L Emmet % (Auto) 5.4 Eos % (Auto) 2.8 Baso % (Auto) 0.5 Neut # (Auto) 12.9 H Lymph # (Auto) 1.3 Emmet # (Auto) 0.8 Eos # (Auto) 0.4 Baso # (Auto) 0.1 WBC Differential . Differential Comment Auto diff final Sodium 156 H* Potassium 4.5 Chloride 128 H Carbon Dioxide 20.2 L Anion Gap 8 BUN 80 H Creatinine 3.37 H Estimated GFR 18 L POC Glucose 156 H Random Glucose 172 H Calcium 7.3 L* Phosphorus 4.9 Total Protein (PEP) 6.5 Albumin 1.9 L Ur Random Creatinine Ur Random Sodium Synovial Color Synovial Appearance Synovial RBC Synovial Nuc Cells Synovial Neutrophils Synovial Monocytes Synovial Lining Cell Synovial Fluid Comment Complement C3 85 L Complement C4 18 06/10/18 07:50 WBC RBC Hgb Hct MCV MCH MCHC RDW Plt Count MPV Neut % (Auto) Lymph % (Auto) Emmet % (Auto) Eos % (Auto) Baso % (Auto) Neut # (Auto) Lymph # (Auto) Emmet # (Auto) Eos # (Auto) Baso # (Auto) WBC Differential Differential Comment Sodium Potassium Chloride Carbon Dioxide Anion Gap BUN Creatinine Estimated GFR POC Glucose 164 H Random Glucose Calcium Phosphorus Total Protein (PEP) Albumin Ur Random Creatinine Ur Random Sodium Synovial Color Synovial Appearance Synovial RBC Synovial Nuc Cells Synovial Neutrophils Synovial Monocytes Synovial Lining Cell Synovial Fluid Comment Complement C3 Complement C4 Microbiology 06/08/18 18:30 Sputum - Endotracheal Gram Stain - Final 06/08/18 18:30 Sputum - Endotracheal Sputum Culture - Preliminary Moderate growth normal respiratory sepideh at 24 hours 06/07/18 14:19 Blood - Peripheral Aerobic Blood Culture - Final S. aureus MRSA 06/07/18 14:19 Blood - Peripheral Anaerobic Blood Culture - Preliminary No growth in 2 days 06/08/18 14:00 Blood - Peripheral Aerobic Blood Culture - Preliminary gram positive cocci 06/08/18 14:00 Blood - Peripheral Anaerobic Blood Culture - Preliminary No growth in 1 day 06/08/18 05:54 Blood - Peripheral Aerobic Blood Culture - Preliminary gram positive cocci 06/08/18 05:54 Blood - Peripheral Anaerobic Blood Culture - Preliminary No growth in 1 day 06/06/18 04:13 Blood - Peripheral Aerobic Blood Culture - Final S. aureus MRSA 06/06/18 04:13 Blood - Peripheral Anaerobic Blood Culture - Preliminary No growth in 3 days 06/04/18 16:45 Blood - Peripheral Aerobic Blood Culture - Final S. aureus MRSA 06/04/18 16:45 Blood - Peripheral Anaerobic Blood Culture - Final No growth in 5 days 06/04/18 16:45 Blood - Peripheral Aerobic Blood Culture - Final S. aureus MRSA 06/04/18 16:45 Blood - Peripheral Anaerobic Blood Culture - Final No growth in 5 days 06/07/18 12:49 Catheterized Urine Urine Culture - Final Escherichia coli ESBL positive Assessment and Plan - Assessment and Plan intbuated/sedated L knee aspirated. 60cc cloudy fluid. sent to lab for analysis -21K wbc -awaiting c&s follow cultures med management
[2018-06-10] MEDS: Mupirocin 2% Nasal Oint Topical Syringe EACH NARE SCH (08:55)
[2018-06-10] MEDS: Famotidine PF Inj 20 MG/2 ML Vial IV.PUSH SCH ×2 (08:55→20:52)
[2018-06-10] MEDS: Chlorhexidine 0.12% Oral Kit 15 ML UDC OROPHARYNG SCH ×2 (09:20→20:50)
[2018-06-10] MEDS: Senna/Docusate Sodium 8.6/50 MG Tablet PO SCH ×2 (09:20→20:52)
[2018-06-10] MEDS ORDERED: Pharmacy Ordered Lab Info OTHER ONE (10:45)
--- NOTE | 2018-06-10 11:51 | P.PNNP ---
Subjective Interval history: Remains intubated and sedation. No acute events overnight. Plan for LAURIE today. <CaroleAzul - Last Filed: 06/10/18 11:46> Physical Exam Vital signs: Vital Signs 06/09/18 11:47 06/09/18 12:00 06/09/18 12:13 Temperature 99.2 F Pulse Rate 71 70 Respiratory Rate 25 H 18 26 H Blood Pressure 140/64 138/64 Pulse Oximetry 100 100 100 06/09/18 12:15 06/09/18 12:30 06/09/18 12:45 Temperature Pulse Rate 76 78 80 Respiratory Rate 28 H 28 H 27 H Blood Pressure 139/64 143/67 H 147/67 H Pulse Oximetry 100 100 100 06/09/18 13:00 06/09/18 13:15 06/09/18 13:30 Temperature Pulse Rate 77 78 71 Respiratory Rate 28 H 27 H 28 H Blood Pressure 147/65 H 149/67 H 143/64 H Pulse Oximetry 100 100 100 06/09/18 13:45 06/09/18 14:00 06/09/18 14:15 Temperature Pulse Rate 78 74 73 Respiratory Rate 27 H 26 H 26 H Blood Pressure 143/59 H 145/63 H 146/66 H Pulse Oximetry 100 100 100 06/09/18 14:30 06/09/18 14:45 06/09/18 15:00 Temperature Pulse Rate 84 89 81 Respiratory Rate 28 H 28 H 28 H Blood Pressure 161/71 H 163/72 H 156/69 H Pulse Oximetry 100 100 100 06/09/18 15:15 06/09/18 15:30 06/09/18 15:45 Temperature Pulse Rate 82 85 78 Respiratory Rate 28 H 28 H 28 H Blood Pressure 153/67 H 157/71 H 158/72 H Pulse Oximetry 100 100 100 06/09/18 16:00 06/09/18 16:15 06/09/18 16:30 Temperature 99.2 F Pulse Rate 81 83 87 Respiratory Rate 27 H 28 H 28 H Blood Pressure 153/67 H 150/65 H 150/67 H Pulse Oximetry 100 100 100 06/09/18 16:36 06/09/18 16:40 06/09/18 16:45 Temperature Pulse Rate 84 61 Respiratory Rate 28 H 25 H 26 H Blood Pressure 150/67 H 110/57 L Pulse Oximetry 100 100 100 06/09/18 17:00 06/09/18 17:15 06/09/18 17:30 Temperature Pulse Rate 71 72 70 Respiratory Rate 28 H 27 H 27 H Blood Pressure 123/60 125/55 L 127/60 Pulse Oximetry 100 100 100 06/09/18 17:40 06/09/18 17:45 06/09/18 18:00 Temperature Pulse Rate 82 68 70 Respiratory Rate 27 H 28 H 27 H Blood Pressure 127/60 129/59 L Pulse Oximetry 100 100 06/09/18 18:15 06/09/18 18:30 06/09/18 19:28 Temperature Pulse Rate 77 75 73 Respiratory Rate 28 H 28 H 26 H Blood Pressure 138/63 138/63 Pulse Oximetry 100 100 100 06/09/18 20:15 06/09/18 20:30 06/09/18 20:45 Temperature 99.7 F H Pulse Rate 69 73 78 Respiratory Rate 28 H 26 H 26 H Blood Pressure 142/64 H 138/63 140/66 Pulse Oximetry 100 100 100 06/09/18 21:00 06/09/18 21:15 06/09/18 21:30 Temperature Pulse Rate 80 78 74 Respiratory Rate 28 H 27 H 28 H Blood Pressure 142/64 H 143/63 H 136/61 Pulse Oximetry 100 100 100 06/09/18 21:45 06/09/18 22:00 06/09/18 22:15 Temperature Pulse Rate 81 78 77 Respiratory Rate 28 H 27 H 28 H Blood Pressure 143/65 H 142/65 H 137/58 L Pulse Oximetry 100 100 100 06/09/18 22:30 06/09/18 22:45 06/09/18 23:00 Temperature Pulse Rate 83 77 81 Respiratory Rate 29 H 28 H 28 H Blood Pressure 145/67 H 141/63 H 142/64 H Pulse Oximetry 100 100 100 06/09/18 23:15 06/09/18 23:30 06/09/18 23:45 Temperature Pulse Rate 81 78 80 Respiratory Rate 29 H 28 H 29 H Blood Pressure 137/63 134/62 141/64 H Pulse Oximetry 100 100 100 06/10/18 00:00 06/10/18 00:15 06/10/18 00:30 Temperature 100.0 F H Pulse Rate 75 75 80 Respiratory Rate 28 H 28 H 29 H Blood Pressure 140/63 138/64 139/63 Pulse Oximetry 100 100 100 06/10/18 00:45 06/10/18 01:00 06/10/18 01:15 Temperature Pulse Rate 79 76 74 Respiratory Rate 28 H 28 H 28 H Blood Pressure 139/63 131/62 135/62 Pulse Oximetry 100 100 100 06/10/18 01:16 06/10/18 01:30 06/10/18 01:45 Temperature Pulse Rate 77 69 Respiratory Rate 28 H 29 H 28 H Blood Pressure 143/66 H 141/65 H Pulse Oximetry 100 100 100 06/10/18 02:00 06/10/18 02:15 06/10/18 02:30 Temperature Pulse Rate 71 75 73 Respiratory Rate 30 H 30 H 29 H Blood Pressure 141/63 H 139/61 Pulse Oximetry 100 100 100 06/10/18 02:45 06/10/18 03:00 06/10/18 03:02 Temperature 100.0 F H Pulse Rate 75 76 77 Respiratory Rate 28 H 30 H 28 H Blood Pressure 136/63 136/63 Pulse Oximetry 100 100 100 06/10/18 03:15 06/10/18 03:30 06/10/18 03:45 Temperature Pulse Rate 74 74 73 Respiratory Rate 29 H 29 H 27 H Blood Pressure Pulse Oximetry 100 100 100 06/10/18 04:00 06/10/18 04:02 06/10/18 04:15 Temperature 99.1 F Pulse Rate 75 71 71 Respiratory Rate 27 H 28 H 28 H Blood Pressure 142/62 H 142/62 H Pulse Oximetry 100 100 100 06/10/18 04:30 06/10/18 04:36 06/10/18 04:45 Temperature Pulse Rate 71 75 81 Respiratory Rate 27 H 27 H 29 H Blood Pressure Pulse Oximetry 100 100 100 06/10/18 05:00 06/10/18 05:02 06/10/18 05:15 Temperature Pulse Rate 86 85 91 H Respiratory Rate 30 H 39 H 62 H Blood Pressure 160/70 H Pulse Oximetry 100 100 100 06/10/18 05:30 06/10/18 05:45 06/10/18 05:53 Temperature Pulse Rate 93 H 91 H 93 H Respiratory Rate 61 H 43 H 47 H Blood Pressure 155/67 H Pulse Oximetry 100 100 100 06/10/18 06:00 06/10/18 06:02 06/10/18 06:15 Temperature Pulse Rate 88 86 84 Respiratory Rate 36 H 34 H 59 H Blood Pressure 138/63 Pulse Oximetry 100 100 100 06/10/18 06:30 06/10/18 07:02 06/10/18 07:25 Temperature Pulse Rate 83 76 88 Respiratory Rate 58 H 60 H 25 H Blood Pressure 133/59 L Pulse Oximetry 100 100 100 06/10/18 08:00 06/10/18 09:00 Temperature 98.8 F Pulse Rate 81 83 Respiratory Rate 28 H 45 H Blood Pressure 127/58 L 147/67 H Pulse Oximetry 100 100 Intake & Output 06/09/18 06/10/18 06/10/18 18:59 06:59 18:59 Intake Total 2595 / 2595 3015 / 3015 Output Total 1450 / 1450 1000 / 1000 Balance 1145 / 1145 2014 Weight 136.1 kg Intake: IV 2305 / 2305 2200 / 2200 / 205 Diprivan 1000 mg/100 ml Inj 1, 100 / 100 100 / 100 000 mg In 100 ml @ 5 MCG/KG/MIN 3.972 mls/hr IV.CONT TITRATE PRN Rx#:[id number] 1/2 Normal Saline Inj 1,000 ML 2000 / 2000 2000 / 2000 @ 125 mls/hr IV.CONT .Q8H JACOB Rx#:[id number] Maxipime Inj 1,000 MG In NS Inj 100 / 100 100 / 100 100 / 100 100 ML @ 200 mls/hr IV.SIG Q12H JACOB Rx#:[id number] Keppra Inj 500 MG In NS Inj 100 105 / 105 105 / 105 ML @ 400 mls/hr IV.SIG Q12H JACOB Rx#:[id number] Tube Feeding 40 / 40 395 / 395 Water Bolus Amount 250 / 250 420 / 420 Output: Urine Amount (Catheter) 1450 / 1450 1000 / 1000 Indwelling Urethral Catheter 1450 / 1450 1000 / 1000 Other: Date of Last Bowel Movement 06/02/18 06/02/18 06/02/18 Narrative: GENERAL: Orally intubated on sedation. SKIN: Warm and dry. NECK: Supple, trachea midline. No JVD. CARDIOVASCULAR: Regular rate and rhythm without murmurs, gallops, or rubs. RESPIRATORY: Breath sounds equal bilaterally. No accessory muscle use. Rhonchi. GASTROINTESTINAL: Abdomen soft, non-tender, nondistended. OG tube MUSCULOSKELETAL: No cyanosis, or edema. - Urinary Catheter Management Indwelling Urethral Catheter Cath placed during this visit: yes Reason for continuing: Hourly intake/output Insertion date: 06/03/18 Insertion time: 03:00 <Azul Lam - Last Filed: 06/10/18 11:46> Vital signs: Vital Signs 06/13/18 21:00 06/13/18 22:00 06/13/18 22:16 Temperature Pulse Rate 93 H 91 H 95 H Respiratory Rate 18 20 Blood Pressure 150/66 H 144/68 H 162/71 H Pulse Oximetry 95 97 98 06/13/18 23:00 06/13/18 23:16 06/13/18 23:25 Temperature 101.1 F H Pulse Rate 96 H 93 H Respiratory Rate 25 H Blood Pressure 179/76 H Pulse Oximetry 96 97 06/13/18 23:34 06/13/18 23:42 06/14/18 00:00 Temperature Pulse Rate 92 H 75 Respiratory Rate 31 H Blood Pressure 181/74 H Pulse Oximetry 96 98 97 06/14/18 00:16 06/14/18 01:00 06/14/18 01:16 Temperature Pulse Rate 78 78 80 Respiratory Rate 24 25 H Blood Pressure 156/67 H 162/66 H Pulse Oximetry 97 98 97 06/14/18 02:00 06/14/18 02:16 06/14/18 02:52 Temperature Pulse Rate 77 76 Respiratory Rate 29 H Blood Pressure 123/56 L Pulse Oximetry 98 98 97 06/14/18 03:00 06/14/18 03:16 06/14/18 04:00 Temperature Pulse Rate 79 80 91 H Respiratory Rate 25 H Blood Pressure 136/63 Pulse Oximetry 97 96 95 06/14/18 04:16 06/14/18 05:00 06/14/18 05:16 Temperature Pulse Rate 100 H 91 H 98 H Respiratory Rate Blood Pressure 149/63 H 139/58 L Pulse Oximetry 95 96 95 06/14/18 06:00 06/14/18 06:16 06/14/18 07:16 Temperature Pulse Rate 99 H 96 H 81 Respiratory Rate 25 H Blood Pressure 168/68 H 131/62 Pulse Oximetry 95 96 97 06/14/18 07:35 06/14/18 08:00 06/14/18 08:16 Temperature 99.2 F Pulse Rate 89 86 Respiratory Rate 29 H Blood Pressure 146/66 H Pulse Oximetry 98 96 06/14/18 09:16 06/14/18 10:00 06/14/18 10:16 Temperature Pulse Rate 89 89 82 Respiratory Rate Blood Pressure 156/67 H 141/63 H Pulse Oximetry 96 97 06/14/18 11:00 06/14/18 11:01 06/14/18 11:15 Temperature Pulse Rate 81 92 H Respiratory Rate 27 H 27 H Blood Pressure 137/63 160/68 H Pulse Oximetry 97 98 97 06/14/18 11:30 06/14/18 11:45 06/14/18 12:00 Temperature 99.2 F Pulse Rate 89 85 84 Respiratory Rate Blood Pressure 152/68 H 153/67 H 138/64 Pulse Oximetry 97 97 97 06/14/18 12:15 06/14/18 12:30 06/14/18 12:45 Temperature Pulse Rate 90 83 91 H Respiratory Rate Blood Pressure 149/67 H 141/64 H 157/69 H Pulse Oximetry 97 97 97 06/14/18 13:00 06/14/18 13:15 06/14/18 13:30 Temperature Pulse Rate 85 87 75 Respiratory Rate Blood Pressure 147/68 H 150/68 H 137/63 Pulse Oximetry 96 96 97 06/14/18 13:45 06/14/18 14:00 06/14/18 14:15 Temperature Pulse Rate 83 85 72 Respiratory Rate Blood Pressure 141/63 H 150/67 H 137/63 Pulse Oximetry 97 97 95 06/14/18 14:30 06/14/18 14:45 06/14/18 15:00 Temperature Pulse Rate 86 84 84 Respiratory Rate Blood Pressure 155/66 H 150/68 H 159/70 H Pulse Oximetry 95 95 95 06/14/18 15:15 06/14/18 15:30 06/14/18 15:45 Temperature Pulse Rate 93 H 90 83 Respiratory Rate Blood Pressure 168/74 H 153/68 H 156/67 H Pulse Oximetry 95 96 96 06/14/18 16:00 06/14/18 16:12 06/14/18 16:15 Temperature Pulse Rate 94 H 92 H Respiratory Rate 29 H Blood Pressure 160/69 H 158/69 H Pulse Oximetry 97 97 97 12/10/18 16:30 06/14/18 16:45 06/14/18 17:00 Temperature Pulse Rate 72 75 75 Respiratory Rate Blood Pressure 142/63 H 140/63 144/65 H Pulse Oximetry 97 97 97 06/14/18 17:15 06/14/18 17:30 06/14/18 17:45 Temperature Pulse Rate 74 86 91 H Respiratory Rate Blood Pressure 140/64 157/66 H 159/70 H Pulse Oximetry 97 97 97 06/14/18 18:00 06/14/18 18:15 Temperature Pulse Rate 85 90 Respiratory Rate Blood Pressure 152/66 H 170/77 H Pulse Oximetry 97 96 Intake & Output 06/14/18 06/14/18 06/15/18 06:59 18:59 06:59 Intake Total 681 / 681 1664.625 / 1664.625 Output Total 1700 / 1700 1780 / 1780 Balance -1019 / -1019 -115.375 / -115.375 Weight 140 kg Intake: IV 105 / 105 1414.625 / 1414.625 Diprivan 1000 mg/100 ml Inj 1, 100 / 100 000 mg In 100 ml @ 5 MCG/KG/MIN 3.972 mls/hr IV.CONT TITRATE PRN Rx#:[id number] Sodium Chloride 23.4% Inj 38.5 1009.625 / 1009.625 MEQ In Sterile Water for Inj 1, 000 ML @ 50 mls/hr IV.CONT . [id number] JACOB Rx#:[id number] Cubicin Inj 800 MG In NS Inj 100 / 100 100 ML @ 200 mls/hr IV.SIG Q48H JACOB Rx#:[id number] INVanz Inj 1,000 MG In NS Inj 100 / 100 100 ML @ 200 mls/hr IV.SIG Q24H JACOB Rx#:[id number] Keppra Inj 500 MG In NS Inj 100 105 / 105 105 / 105 ML @ 400 mls/hr IV.SIG Q12H JACOB Rx#:[id number] Tube Feeding 276 / 276 Tube Irrigant 300 / 300 Water Bolus Amount 250 / 250 Output: Urine Amount (Catheter) 1700 / 1700 1750 / 1750 Indwelling Urethral Catheter 1700 / 1700 1750 / 1750 Wound Drainage 0 / 0 30 / 30 # 1 Left Knee Hemovac 0 / 0 30 / 30 Other: Date of Last Bowel Movement 06/14/18 06/14/18 # Bowel Movements 1 1 - Urinary Catheter Management Indwelling Urethral Catheter Cath placed during this visit: no <Aurelia Powell - Last Filed: 06/14/18 20:50> Assessment and Plan - Assessment (1) Acute kidney failure Code(s): N17.9 - Acute kidney failure, unspecified Status: Acute Plan: Acute kidney injury with creatinine of 3.50. HCO3 at 20.6. Non oliguric. On admission creatinine was noted to be 1.56 CT on abdomen with no acute findings. Bilateral renal cysts noted. Patient may have some chronic kidney disease but baseline creatinine is not known. Proteinuria noted in urine. Creatinine started to increase on the 4th at 2.86. NIKKI with FeNA at 2.35 suggestive of ATN possibly from sepsis or vancomycin/ gentamicin toxicity which levels were both elevated on the 4th. Also had IV contrast on 06/04 so possible contrast nephropathy in differential Creatinine has improved at 3.37 today from 3.50, with good urinary output 2.4 liters 24 hours. Serology pending. Recommend to continue IVF as patient tolerates. Avoid nephrotoxins as possible. Will follow urinary output and labs. LAURIE planned for today. Labs in AM <Azul Lam - Last Filed: 06/10/18 11:46> - Assessment (1) Acute kidney failure Code(s): N17.9 - Acute kidney failure, unspecified Status: Acute Plan: Patient seen and examined, agree with above. Has NIKKI, Non Oliguric, Creatinine is slightly better. <Aurelia Powell - Last Filed: 06/14/18 20:50>
--- NOTE | 2018-06-10 13:01 | P.PNID ---
Subjective Remarks: Patient is a 68-year-old male, brought into the hospital initially at [facility] for evaluation of weakness and slurred speech. It apparently has been present for several days. He was found on the floor of his mobile home. At [facility] he was found to be febrile, WBC up to 21,000, urinalysis with pyuria, creatinine 2.33, and lactic acid was elevated. CT of the head showed focal hemorrhage in the posterior fossa. Patient was transferred to [facility] for neurosurgical evaluation. Patient since admission has had elevated temperature. His blood cultures done on admission are now reported as growing gram-positive cocci, MRSA. His urine culture is also growing MRSA. On evaluation in the intensive care unit, he is awake, and interactive. He looks slightly tachypneic at rest and and on nasal O2. He has some confusion but mostly his oriented. His chest x-ray is normal. Echo is showing calcification in the aortic valve. No vegetations seen. Infectious disease consultation has been requested to assist with evaluation and treatment of patient with MRSA bacteremia. Notes reviewed D/W RN For LAURIE today Temps low grade BP ok Sedated on the vent Aspirate of L knee cloudy - G/S GPC Last (+) BC 06/08 Spine MRI, no fluid collection seen Creatinine continues to rise, making urine CXR 06/08 - negative UC with E coli ESBL+ CT A/P - no abscess Head MRA - no aneurysm All BC with MRSA, Vanco DARYL 1 - BC 06/03-06/08 Echo mild MR and AI; dense calcification of the AV On Cubicin Antibiotics: Cubicin Cefepime Lines: PIV Past Medical History: Diabetes History of MRSA infection Onset Date: ~06/03/18 Hypertension Obesity UTI (urinary tract infection) Allergies/Adverse Reactions: Allergies No Known Allergies Allergy (Verified 06/03/18 01:32) Objective Vital Signs 06/09/18 13:00 06/09/18 13:15 06/09/18 13:30 Temperature Pulse Rate 77 78 71 Respiratory Rate 28 H 27 H 28 H Blood Pressure 147/65 H 149/67 H 143/64 H Pulse Oximetry 100 100 100 06/09/18 13:45 06/09/18 14:00 06/09/18 14:15 Temperature Pulse Rate 78 74 73 Respiratory Rate 27 H 26 H 26 H Blood Pressure 143/59 H 145/63 H 146/66 H Pulse Oximetry 100 100 100 06/09/18 14:30 06/09/18 14:45 06/09/18 15:00 Temperature Pulse Rate 84 89 81 Respiratory Rate 28 H 28 H 28 H Blood Pressure 161/71 H 163/72 H 156/69 H Pulse Oximetry 100 100 100 06/09/18 15:15 06/09/18 15:30 06/09/18 15:45 Temperature Pulse Rate 82 85 78 Respiratory Rate 28 H 28 H 28 H Blood Pressure 153/67 H 157/71 H 158/72 H Pulse Oximetry 100 100 100 06/09/18 16:00 06/09/18 16:15 06/09/18 16:30 Temperature 99.2 F Pulse Rate 81 83 87 Respiratory Rate 27 H 28 H 28 H Blood Pressure 153/67 H 150/65 H 150/67 H Pulse Oximetry 100 100 100 06/09/18 16:36 06/09/18 16:40 06/09/18 16:45 Temperature Pulse Rate 84 61 Respiratory Rate 28 H 25 H 26 H Blood Pressure 150/67 H 110/57 L Pulse Oximetry 100 100 100 06/09/18 17:00 06/09/18 17:15 06/09/18 17:30 Temperature Pulse Rate 71 72 70 Respiratory Rate 28 H 27 H 27 H Blood Pressure 123/60 125/55 L 127/60 Pulse Oximetry 100 100 100 06/09/18 17:40 06/09/18 17:45 06/09/18 18:00 Temperature Pulse Rate 82 68 70 Respiratory Rate 27 H 28 H 27 H Blood Pressure 127/60 129/59 L Pulse Oximetry 100 100 06/09/18 18:15 06/09/18 18:30 06/09/18 19:28 Temperature Pulse Rate 77 75 73 Respiratory Rate 28 H 28 H 26 H Blood Pressure 138/63 138/63 Pulse Oximetry 100 100 100 06/09/18 20:15 06/09/18 20:30 06/09/18 20:45 Temperature 99.7 F H Pulse Rate 69 73 78 Respiratory Rate 28 H 26 H 26 H Blood Pressure 142/64 H 138/63 140/66 Pulse Oximetry 100 100 100 06/09/18 21:00 06/09/18 21:15 06/09/18 21:30 Temperature Pulse Rate 80 78 74 Respiratory Rate 28 H 27 H 28 H Blood Pressure 142/64 H 143/63 H 136/61 Pulse Oximetry 100 100 100 06/09/18 21:45 06/09/18 22:00 06/09/18 22:15 Temperature Pulse Rate 81 78 77 Respiratory Rate 28 H 27 H 28 H Blood Pressure 143/65 H 142/65 H 137/58 L Pulse Oximetry 100 100 100 06/09/18 22:30 06/09/18 22:45 06/09/18 23:00 Temperature Pulse Rate 83 77 81 Respiratory Rate 29 H 28 H 28 H Blood Pressure 145/67 H 141/63 H 142/64 H Pulse Oximetry 100 100 100 06/09/18 23:15 06/09/18 23:30 06/09/18 23:45 Temperature Pulse Rate 81 78 80 Respiratory Rate 29 H 28 H 29 H Blood Pressure 137/63 134/62 141/64 H Pulse Oximetry 100 100 100 06/10/18 00:00 06/10/18 00:15 06/10/18 00:30 Temperature 100.0 F H Pulse Rate 75 75 80 Respiratory Rate 28 H 28 H 29 H Blood Pressure 140/63 138/64 139/63 Pulse Oximetry 100 100 100 06/10/18 00:45 06/10/18 01:00 06/10/18 01:15 Temperature Pulse Rate 79 76 74 Respiratory Rate 28 H 28 H 28 H Blood Pressure 139/63 131/62 135/62 Pulse Oximetry 100 100 100 06/10/18 01:16 06/10/18 01:30 06/10/18 01:45 Temperature Pulse Rate 77 69 Respiratory Rate 28 H 29 H 28 H Blood Pressure 143/66 H 141/65 H Pulse Oximetry 100 100 100 06/10/18 02:00 06/10/18 02:15 06/10/18 02:30 Temperature Pulse Rate 71 75 73 Respiratory Rate 30 H 30 H 29 H Blood Pressure 141/63 H 139/61 Pulse Oximetry 100 100 100 06/10/18 02:45 06/10/18 03:00 06/10/18 03:02 Temperature 100.0 F H Pulse Rate 75 76 77 Respiratory Rate 28 H 30 H 28 H Blood Pressure 136/63 136/63 Pulse Oximetry 100 100 100 06/10/18 03:15 06/10/18 03:30 06/10/18 03:45 Temperature Pulse Rate 74 74 73 Respiratory Rate 29 H 29 H 27 H Blood Pressure Pulse Oximetry 100 100 100 06/10/18 04:00 06/10/18 04:02 06/10/18 04:15 Temperature 99.1 F Pulse Rate 75 71 71 Respiratory Rate 27 H 28 H 28 H Blood Pressure 142/62 H 142/62 H Pulse Oximetry 100 100 100 06/10/18 04:30 06/10/18 04:36 06/10/18 04:45 Temperature Pulse Rate 71 75 81 Respiratory Rate 27 H 27 H 29 H Blood Pressure Pulse Oximetry 100 100 100 06/10/18 05:00 06/10/18 05:02 06/10/18 05:15 Temperature Pulse Rate 86 85 91 H Respiratory Rate 30 H 39 H 62 H Blood Pressure 160/70 H Pulse Oximetry 100 100 100 06/10/18 05:30 06/10/18 05:45 06/10/18 05:53 Temperature Pulse Rate 93 H 91 H 93 H Respiratory Rate 61 H 43 H 47 H Blood Pressure 155/67 H Pulse Oximetry 100 100 100 06/10/18 06:00 06/10/18 06:02 06/10/18 06:15 Temperature Pulse Rate 88 86 84 Respiratory Rate 36 H 34 H 59 H Blood Pressure 138/63 Pulse Oximetry 100 100 100 06/10/18 06:30 06/10/18 07:02 06/10/18 07:25 Temperature Pulse Rate 83 76 88 Respiratory Rate 58 H 60 H 25 H Blood Pressure 133/59 L Pulse Oximetry 100 100 100 06/10/18 08:00 06/10/18 09:00 06/10/18 09:30 Temperature 98.8 F Pulse Rate 81 83 80 Respiratory Rate 28 H 45 H 41 H Blood Pressure 127/58 L 147/67 H 132/62 Pulse Oximetry 100 100 100 06/10/18 10:00 06/10/18 10:30 06/10/18 11:00 Temperature Pulse Rate 71 72 70 Respiratory Rate 28 H 28 H 28 H Blood Pressure 120/57 L 122/58 L 125/57 L Pulse Oximetry 100 100 100 06/10/18 11:30 06/10/18 12:00 06/10/18 12:03 Temperature 98.8 F Pulse Rate 69 75 Respiratory Rate 32 H 28 H 27 H Blood Pressure 123/58 L 126/58 L Pulse Oximetry 100 100 100 06/10/18 12:30 Temperature Pulse Rate 71 Respiratory Rate 27 H Blood Pressure 128/60 Pulse Oximetry 100 Intake & Output 06/09/18 06/10/18 06/10/18 18:59 06:59 18:59 Intake Total 2595 / 2595 3015 / 3015 1205 / 1205 Output Total 1450 / 1450 1000 / 1000 Balance 1145 / 1145 2014 1205 / 1205 Weight 136.1 kg Intake: IV 2305 / 2305 2200 / 2200 1205 / 1205 Diprivan 1000 mg/100 ml Inj 1, 100 / 100 100 / 100 000 mg In 100 ml @ 5 MCG/KG/MIN 3.972 mls/hr IV.CONT TITRATE PRN Rx#:[id number] 1/2 Normal Saline Inj 1,000 ML 2000 / 2000 2000 / 2000 1000 / 1000 @ 125 mls/hr IV.CONT .Q8H JACOB Rx#:[id number] Maxipime Inj 1,000 MG In NS Inj 100 / 100 100 / 100 100 / 100 100 ML @ 200 mls/hr IV.SIG Q12H JACOB Rx#:[id number] Keppra Inj 500 MG In NS Inj 100 105 / 105 105 / 105 ML @ 400 mls/hr IV.SIG Q12H JACOB Rx#:[id number] Tube Feeding 40 / 40 395 / 395 Water Bolus Amount 250 / 250 420 / 420 Output: Urine Amount (Catheter) 1450 / 1450 1000 / 1000 Indwelling Urethral Catheter 1450 / 1450 1000 / 1000 Other: Date of Last Bowel Movement 06/02/18 06/02/18 06/02/18 06/08/18 18:30 Sputum - Endotracheal Gram Stain - Final 06/08/18 18:30 Sputum - Endotracheal Sputum Culture - Final Heavy growth normal respiratory sepideh 06/08/18 14:00 Blood - Peripheral Aerobic Blood Culture - Final S. aureus MRSA 06/08/18 14:00 Blood - Peripheral Anaerobic Blood Culture - Preliminary No growth in 2 days 06/08/18 05:54 Blood - Peripheral Aerobic Blood Culture - Final S. aureus MRSA 06/08/18 05:54 Blood - Peripheral Anaerobic Blood Culture - Preliminary No growth in 2 days 06/07/18 14:19 Blood - Peripheral Aerobic Blood Culture - Final S. aureus MRSA 06/07/18 14:19 Blood - Peripheral Anaerobic Blood Culture - Preliminary No growth in 3 days 06/06/18 04:13 Blood - Peripheral Aerobic Blood Culture - Final S. aureus MRSA 06/06/18 04:13 Blood - Peripheral Anaerobic Blood Culture - Preliminary No growth in 4 days 06/09/18 11:35 Fluid - Synovial Fluid Gram Stain - Final 06/09/18 11:35 Fluid - Synovial Fluid Body Fluid Culture - Pending 06/10/18 06:20 Blood - Peripheral Aerobic Blood Culture - Pending 06/10/18 06:20 Blood - Peripheral Anaerobic Blood Culture - Pending 06/04/18 16:45 Blood - Peripheral Aerobic Blood Culture - Final S. aureus MRSA 06/04/18 16:45 Blood - Peripheral Anaerobic Blood Culture - Final No growth in 5 days 06/04/18 16:45 Blood - Peripheral Aerobic Blood Culture - Final S. aureus MRSA 06/04/18 16:45 Blood - Peripheral Anaerobic Blood Culture - Final No growth in 5 days 06/07/18 12:49 Catheterized Urine Urine Culture - Final Escherichia coli ESBL positive 06/05/18 04:07 Blood - Peripheral Aerobic Blood Culture - Final S. aureus MRSA 06/05/18 04:07 Blood - Peripheral Anaerobic Blood Culture - Final S. aureus MRSA Lab - Hematology Results 06/09/18 06/10/18 04:01 06:20 WBC 13.9 H 15.6 H RBC 3.26 L 3.36 L Hgb 9.6 L 9.9 L Hct 29.8 L 30.7 L MCV 91.5 91.4 MCH 29.5 29.5 MCHC 32.2 32.3 RDW 18.0 H 18.0 H Plt Count 166 193 MPV 9.9 10.0 Neut % (Auto) 81.9 H 83.0 H Lymph % (Auto) 9.3 8.3 L [place] % (Auto) 6.7 5.4 Eos % (Auto) 1.9 2.8 Baso % (Auto) 0.2 0.5 Neut # (Auto) 11.4 H 12.9 H Lymph # (Auto) 1.3 1.3 [place] # (Auto) 0.9 0.8 Eos # (Auto) 0.3 0.4 Baso # (Auto) 0.0 0.1 WBC Differential . . Differential Comment Auto diff final Auto diff final Lab - Chemistry Results 06/08/18 06/08/1818 05:54 05:54 18:46 Sodium 163 H* Cancelled Cancelled Potassium 4.7 Cancelled Chloride 134 H Cancelled Carbon Dioxide 22.0 Cancelled Anion Gap 7 Cancelled BUN 69 H Cancelled Creatinine 2.86 H Cancelled Estimated GFR 22 L Cancelled POC Glucose Random Glucose 190 H Cancelled Lactic Acid Calcium 8.2 L Cancelled Calcium Adj for Albumin Cancelled Phosphorus Total Bilirubin 0.7 Cancelled AST 85 H Cancelled ALT 45 Cancelled Alkaline Phosphatase 64 Cancelled Total Creatine Kinase 2057 H CK-MB (CK-2) 5.6 H CK-MB (CK-2) % 0.3 B-Natriuretic Peptide Total Protein 6.5 Cancelled Total Protein (PEP) Albumin 1.9 L Cancelled 06/08/18 06/08/18 06/08/18 18:46 18:46 20:30 Sodium 163 H* Potassium 4.6 Chloride 130 H Carbon Dioxide 21.1 Anion Gap 12 BUN 78 H Creatinine 3.26 H Estimated GFR 19 L POC Glucose 136 H Random Glucose 154 H Lactic Acid 2.2 H Calcium 7.9 L Calcium Adj for Albumin Phosphorus Total Bilirubin AST ALT Alkaline Phosphatase Total Creatine Kinase CK-MB (CK-2) CK-MB (CK-2) % B-Natriuretic Peptide Total Protein Total Protein (PEP) Albumin 06/08/18 06/09/18 06/09/18 23:55 04:01 04:01 Sodium 160 H* Potassium 4.6 Chloride 131 H Carbon Dioxide 20.6 L Anion Gap 8 BUN 81 H Creatinine 3.50 H Estimated GFR 17 L POC Glucose 166 H Random Glucose 163 H Lactic Acid Calcium 7.3 L* Calcium Adj for Albumin 8.8 Phosphorus Total Bilirubin 0.7 AST 116 H ALT 46 Alkaline Phosphatase 54 Total Creatine Kinase CK-MB (CK-2) CK-MB (CK-2) % B-Natriuretic Peptide 89 Total Protein 6.2 L Total Protein (PEP) Albumin 2.1 L 06/09/18 06/09/18 06/09/18 04:28 07:45 13:07 Sodium Potassium Chloride Carbon Dioxide Anion Gap BUN Creatinine Estimated GFR POC Glucose 195 H 154 H 184 H Random Glucose Lactic Acid Calcium Calcium Adj for Albumin Phosphorus Total Bilirubin AST ALT Alkaline Phosphatase Total Creatine Kinase CK-MB (CK-2) CK-MB (CK-2) % B-Natriuretic Peptide Total Protein Total Protein (PEP) Albumin 06/09/18 06/09/18 06/10/18 18:09 21:35 02:55 Sodium Potassium Chloride Carbon Dioxide Anion Gap BUN Creatinine Estimated GFR POC Glucose 135 H 173 H 156 H Random Glucose Lactic Acid Calcium Calcium Adj for Albumin Phosphorus Total Bilirubin AST ALT Alkaline Phosphatase Total Creatine Kinase CK-MB (CK-2) CK-MB (CK-2) % B-Natriuretic Peptide Total Protein Total Protein (PEP) Albumin 06/10/18 06/10/18 06/10/18 06:20 07:50 12:08 Sodium 156 H* Potassium 4.5 Chloride 128 H Carbon Dioxide 20.2 L Anion Gap 8 BUN 80 H Creatinine 3.37 H Estimated GFR 18 L POC Glucose 164 H 184 H Random Glucose 172 H Lactic Acid Calcium 7.3 L* Calcium Adj for Albumin Phosphorus 4.9 Total Bilirubin AST ALT Alkaline Phosphatase Total Creatine Kinase CK-MB (CK-2) CK-MB (CK-2) % B-Natriuretic Peptide Total Protein Total Protein (PEP) 6.5 Albumin 1.9 L Imaging: ITS Impressions Abdomen/Bladder Ultrasound 06/03/18 00:00 CONCLUSION: 1. Bilateral simple cysts within the kidneys as above. 2. No findings to indicate renal obstruction. 3. Renal cortex appears of adequate thickness. Abdomen/Pelvis CT 06/04/18 00:00 CONCLUSION: 1. The second and third portions of the duodenum appear mildly prominent and indistinct with mild surrounding inflammatory change extending into the adjacent mesentery. The findings are concerning for duodenitis. 2. Bilateral renal cysts. 3. Minimal pleural effusions and atelectasis in the lung bases. 4. The gallbladder is unremarkable. Head MRI 06/04/18 00:00 CONCLUSION: 1. There is a focal stable area of subacute hemorrhage adjacent to the posterior right midbrain measuring approximately 1.5 cm in length. This is not significantly changed in its overall appearance compared to the recent CT scan of the brain. No definite new areas of hemorrhage are demonstrated. 2. Stable diffuse bilateral cortical atrophy. Head MRA 06/04/18 00:00 CONCLUSION: 1. Atherosclerotic changes involving the left M2 segment. 2. No aneurysm or vascular abnormality identified. 3. Visualization of the known blood products along the right side of the brainstem. Neck MRA 06/04/18 00:00 CONCLUSION: 1. Unremarkable MRA of the carotids. Percent stenosis is calculated using the diameter of the stenotic region over the diameter of the normal distal internal carotid artery Abdomen X-Ray 06/05/18 00:00 CONCLUSION: Feeding tube distal tip is in the gastric body. Knee X-Ray 06/06/18 00:00 CONCLUSION: 1. Moderate suprapatellar effusion. 2. Prominent degenerative osteoarthritis. Head CT 06/08/18 00:00 CONCLUSION: 1. Resolving subarachnoid hemorrhage. No acute hemorrhage is identified. . Knee MRI 06/08/18 07:08 CONCLUSION: 1. Nonspecific joint effusion and moderate severity synovitis. Also nonspecific subcutaneous edema. Nothing organized or drainable. 2. Medial compartment predominant osteoarthritis. 3. Tears of the medial and lateral menisci as above. Cervical Spine MRI 06/08/18 07:09 CONCLUSION: 1. Increased signal anterior to the C6-C7 disc level and between the prominent anterior marginal osteophytes. The anterior longitudinal ligament is not seen. This could be the sequela of an injury in this region. The remaining aspect of the disc is intact. The vertebral bodies demonstrate normal signal. Prevertebral soft tissue swelling is not seen. This could be chronic. Fluid resembling a pseudarthrosis can also develop between osteophytes potentially. The remaining soft tissues appear intact. 2. Mild left lateral recess disc protrusion at the C2-C3 level. 3. Mild central disc protrusion at the C3-C4 level. 4. Mild disc bulge at the C5-C6 level and minimal disc bulge at the C4-C5 level. 5. Scattered neural foraminal narrowing as described above. Lumbar Spine MRI 06/08/18 07:09 CONCLUSION: 1. Severe stenosis at the L4-L5 level. 2. Moderate stenosis at the L2-L3 level. 3. Minimal disc bulge at the L1-L2 level with a small inferiorly directed extruded disc fragment at the right side. Significant stenosis is not seen at this level. 4. No focal fluid collection is identified. Thoracic Spine MRI 06/08/18 07:09 CONCLUSION: 1. Limited, noncontrast examination with no evidence of abscess. 2. Small posterior central protrusion at T5-6 with mild flattening of the anterior cord. 3. Posterior disc bulge at T6-7 with mild flattening of the anterior thecal sac. Chest X-Ray 06/08/18 11:16 CONCLUSION: A port is not seen. No acute cardiopulmonary process. Physical Exam: GENERAL: Sedated on the vent, not in respiratory distress. SKIN: Warm and dry. No generalized rash, no ecchymoses and no evidence of embolic lesions. HEAD: Atraumatic. Normocephalic. No temporal wasting, or tenderness. EYES: [place] conjunctiva. No petechia or hemorrhage. Pupils equal, round and reactive to light. No scleral icterus. No injection or drainage. EARS, NOSE AND THROAT: Nose without bleeding or purulent nasal discharge. Orally intubated NECK: Trachea midline. Supple and not tender, no meningeal signs CARDIOVASCULAR: Regular rate and rhythm. No murmurs, rubs or gallops heard RESPIRATORY: Clear to auscultation. Breath sounds equal bilaterally. No rales , wheezing or rhonchi ABDOMEN: Soft, obese, globular, distended bowel sounds present and normoactive. EXTREMITIES: No clubbing, cyanosis, or edema. No calf tenderness. Seems to have edis knee effusion NEUROLOGICAL: Sedated. PSYCHIATRIC: Unable to assess. LINE: No evidence of infection : [place] in place, with sediment Assessment and Plan - Plan Impression MRSA sepsis on presentation, worrisome for IE - MRSA not a common pathogen - so far no obvious source for the MRSA, and very likely endovascular - BC still (+) UTI - first UC with MRSA; now with E coli ESBL Septic L knee Hemorrhage posterior fossa - no aneurysm: MRA negative for mycotic aneurism Hx DM, HTN, Obesity Renal insufficiency, worse Fevers, persistent Respiratory failure - CXR clear Recommendation Repeat blood culture to document clearing Continue Cubicin at least to help and hope for quicker sterilization of blood LAURIE today Change Cefepime to INvanz Follow C/S Monitor progress Follow miky D/W MATEO
[2018-06-10] MEDS ORDERED: ASP: Documented ESBL, MDR A baumannii or P. aeruginosa OTHER PRN (13:02)
--- NOTE | 2018-06-10 14:54 | P.PNCC ---
Subjective Subjective Remarks/Hospital Course: 06/03: Patient is a 68-year-old male with past medical history significant for type 2 diabetes, hypertension, morbid obesity who presented to the [facility] emergency department with weakness and slurred speech. Symptoms present for 2 days, apparently he was found on the floor of his mobile home. He was noted to have high fever at the [facility] his WBC count was 21.3 UA was positive. His sodium was 134 BUN 50 with a creatinine of 2.33 bicarb was 16 lactic acid was 6.8. CPK more than 3000 at the outside hospital. A CT of the head showed focal hemorrhage into the right quadrigeminal plate cistern. Dr. Hopkins was contacted who accepted the patient and requested admission to critical care. Patient was accepted to [facility] at [place] Dr. Deluca evaluated the patient in the [facility], he is lying in the bed. Slightly tachypneic moderate distress. Patient is oriented to place and person. CT of the head repeated here at [place] showed hemorrhage along the posterior aspect of the brainstem measuring up to 2.8 cm in maximal diameter. Mild mass effect on the brainstem. No hydrocephalus. I have started the patient on Cardene infusion for tight blood pressure control. Zosyn for UTI. 2% saline will be started to keep sodium above 150. Avoid mannitol due to renal failure. Keppra for seizure prophylaxis. I am unable to find coags but platelet count was normal. 06/04: MRSA bacteremia ob blood cultures drawn on admission. Currently on precedex, on room air. Awake, follows commands, speech, unintelligible. Started on IV vanc. ID consulted as concern for septic emboli/ endocarditis as cause for brainstem bleed. 06/05: 48 hours following a mid brain spontaneous hemorrhage complicated by numerous MRSA blood cultures. Blood pressure acceptably well controlled. Fever pattern persists. Patient tolerating extubation and protecting airway adequately. Taper completely off Precedex. Serum osmolality acceptably concentrated. 06/06: Serum osmolality acceptable, will allow sodium to drift back into the lower 150s now. Patient is alert and interactive. He moves 4 limbs spontaneously. Episodic fevers to 102+. We will continue with infectious disease workup for source of bacteremia. Endocarditis remains high on the list of possibilities. 06/07: Awake, alert, following commands. Speech very slurred however responds appropriately. Slight disorientation. Thought he was in [place]. Knows he is in the hospital. Complains of back pain. 06/08: Drowsy, arousable, tachypneic. Sodium up to 163, started on D5W and free water. Creatinine up. Tolerating tube feeds. Awaiting MRI. Will need LAURIE. Will need intubation probably for airway and in order to transport for MRI and LAURIE. 06/09: Patient intubated and placed on mechanical ventilation on 06/09. Dr. Hopkins has cleared patient for LAURIE/anticoagulation/valve surgery if needed. We are awaiting LAURIE for further evaluation of MRSA bacteremia by cardiology to determine source. Orthopedics evaluating left knee synovitis/effusion/meniscal tear. 06/10: Underwent aspiration of the left knee yesterday which is growing MRSA. Remains sedated, orally intubated on mechanical ventilation. Underwent LAURIE today which did not reveal any vegetation. Being followed by orthopedics/ID/ neurosurgery. Objective Vital Signs / I&O: Vital Signs 06/09/18 14:45 06/09/18 15:00 06/09/18 15:15 Temperature Pulse Rate 89 81 82 Respiratory Rate 28 H 28 H 28 H Blood Pressure 163/72 H 156/69 H 153/67 H Pulse Oximetry 100 100 100 06/09/18 15:30 06/09/18 15:45 06/09/18 16:00 Temperature 99.2 F Pulse Rate 85 78 81 Respiratory Rate 28 H 28 H 27 H Blood Pressure 157/71 H 158/72 H 153/67 H Pulse Oximetry 100 100 100 06/09/18 16:15 06/09/18 16:30 06/09/18 16:36 Temperature Pulse Rate 83 87 84 Respiratory Rate 28 H 28 H 28 H Blood Pressure 150/65 H 150/67 H 150/67 H Pulse Oximetry 100 100 100 06/09/18 16:40 06/09/18 16:45 06/09/18 17:00 Temperature Pulse Rate 61 71 Respiratory Rate 25 H 26 H 28 H Blood Pressure 110/57 L 123/60 Pulse Oximetry 100 100 100 06/09/18 17:15 06/09/18 17:30 06/09/18 17:40 Temperature Pulse Rate 72 70 82 Respiratory Rate 27 H 27 H 27 H Blood Pressure 125/55 L 127/60 Pulse Oximetry 100 100 06/09/18 17:45 06/09/18 18:00 06/09/18 18:15 Temperature Pulse Rate 68 70 77 Respiratory Rate 28 H 27 H 28 H Blood Pressure 127/60 129/59 L 138/63 Pulse Oximetry 100 100 100 06/09/18 18:30 06/09/18 19:28 06/09/18 20:15 Temperature 99.7 F H Pulse Rate 75 73 69 Respiratory Rate 28 H 26 H 28 H Blood Pressure 138/63 142/64 H Pulse Oximetry 100 100 100 06/09/18 20:30 06/09/18 20:45 06/09/18 21:00 Temperature Pulse Rate 73 78 80 Respiratory Rate 26 H 26 H 28 H Blood Pressure 138/63 140/66 142/64 H Pulse Oximetry 100 100 100 06/09/18 21:15 06/09/18 21:30 06/09/18 21:45 Temperature Pulse Rate 78 74 81 Respiratory Rate 27 H 28 H 28 H Blood Pressure 143/63 H 136/61 143/65 H Pulse Oximetry 100 100 100 06/09/18 22:00 06/09/18 22:15 06/09/18 22:30 Temperature Pulse Rate 78 77 83 Respiratory Rate 27 H 28 H 29 H Blood Pressure 142/65 H 137/58 L 145/67 H Pulse Oximetry 100 100 100 06/09/18 22:45 06/09/18 23:00 06/09/18 23:15 Temperature Pulse Rate 77 81 81 Respiratory Rate 28 H 28 H 29 H Blood Pressure 141/63 H 142/64 H 137/63 Pulse Oximetry 100 100 100 06/09/18 23:30 06/09/18 23:45 06/10/18 00:00 Temperature 100.0 F H Pulse Rate 78 80 75 Respiratory Rate 28 H 29 H 28 H Blood Pressure 134/62 141/64 H 140/63 Pulse Oximetry 100 100 100 06/10/18 00:15 06/10/18 00:30 06/10/18 00:45 Temperature Pulse Rate 75 80 79 Respiratory Rate 28 H 29 H 28 H Blood Pressure 138/64 139/63 139/63 Pulse Oximetry 100 100 100 06/10/18 01:00 06/10/18 01:15 06/10/18 01:16 Temperature Pulse Rate 76 74 Respiratory Rate 28 H 28 H 28 H Blood Pressure 131/62 135/62 Pulse Oximetry 100 100 100 06/10/18 01:30 06/10/18 01:45 06/10/18 02:00 Temperature Pulse Rate 77 69 71 Respiratory Rate 29 H 28 H 30 H Blood Pressure 143/66 H 141/65 H 141/63 H Pulse Oximetry 100 100 100 06/10/18 02:15 06/10/18 02:30 06/10/18 02:45 Temperature 100.0 F H Pulse Rate 75 73 75 Respiratory Rate 30 H 29 H 28 H Blood Pressure 139/61 136/63 Pulse Oximetry 100 100 100 06/10/18 03:00 06/10/18 03:02 06/10/18 03:15 Temperature Pulse Rate 76 77 74 Respiratory Rate 30 H 28 H 29 H Blood Pressure 136/63 Pulse Oximetry 100 100 100 06/10/18 03:30 06/10/18 03:45 06/10/18 04:00 Temperature 99.1 F Pulse Rate 74 73 75 Respiratory Rate 29 H 27 H 27 H Blood Pressure 142/62 H Pulse Oximetry 100 100 100 06/10/18 04:02 06/10/18 04:15 06/10/18 04:30 Temperature Pulse Rate 71 71 71 Respiratory Rate 28 H 28 H 27 H Blood Pressure 142/62 H Pulse Oximetry 100 100 100 06/10/18 04:36 06/10/18 04:45 06/10/18 05:00 Temperature Pulse Rate 75 81 86 Respiratory Rate 27 H 29 H 30 H Blood Pressure Pulse Oximetry 100 100 100 06/10/18 05:02 06/10/18 05:15 06/10/18 05:30 Temperature Pulse Rate 85 91 H 93 H Respiratory Rate 39 H 62 H 61 H Blood Pressure 160/70 H Pulse Oximetry 100 100 100 06/10/18 05:45 06/10/18 05:53 06/10/18 06:00 Temperature Pulse Rate 91 H 93 H 88 Respiratory Rate 43 H 47 H 36 H Blood Pressure 155/67 H Pulse Oximetry 100 100 100 06/10/18 06:02 06/10/18 06:15 06/10/18 06:30 Temperature Pulse Rate 86 84 83 Respiratory Rate 34 H 59 H 58 H Blood Pressure 138/63 Pulse Oximetry 100 100 100 06/10/18 07:02 06/10/18 07:25 06/10/18 08:00 Temperature 98.8 F Pulse Rate 76 88 81 Respiratory Rate 60 H 25 H 28 H Blood Pressure 133/59 L 127/58 L Pulse Oximetry 100 100 100 06/10/18 09:00 06/10/18 09:30 06/10/18 10:00 Temperature Pulse Rate 83 80 71 Respiratory Rate 45 H 41 H 28 H Blood Pressure 147/67 H 132/62 120/57 L Pulse Oximetry 100 100 100 06/10/18 10:30 06/10/18 11:00 06/10/18 11:30 Temperature Pulse Rate 72 70 69 Respiratory Rate 28 H 28 H 32 H Blood Pressure 122/58 L 125/57 L 123/58 L Pulse Oximetry 100 100 100 06/10/18 12:00 06/10/18 12:03 06/10/18 12:30 Temperature 98.8 F Pulse Rate 75 71 Respiratory Rate 28 H 27 H 27 H Blood Pressure 126/58 L 128/60 Pulse Oximetry 100 100 100 06/10/18 13:51 Temperature Pulse Rate Respiratory Rate Blood Pressure Pulse Oximetry 100 Intake & Output 06/09/18 06/10/18 06/10/18 18:59 06:59 18:59 Intake Total 2595 / 2595 3015 / 3015 1205 / 1205 Output Total 1450 / 1450 1000 / 1000 Balance 1145 / 1145 2014 1205 / 1205 Weight 136.1 kg Intake: IV 2305 / 2305 2200 / 2200 1205 / 1205 Diprivan 1000 mg/100 ml Inj 1, 100 / 100 100 / 100 000 mg In 100 ml @ 5 MCG/KG/MIN 3.972 mls/hr IV.CONT TITRATE PRN Rx#:[id number] 1/2 Normal Saline Inj 1,000 ML 2000 / 2000 2000 / 2000 1000 / 1000 @ 125 mls/hr IV.CONT .Q8H JACOB Rx#:[id number] Maxipime Inj 1,000 MG In NS Inj 100 / 100 100 / 100 100 / 100 100 ML @ 200 mls/hr IV.SIG Q12H JACOB Rx#:[id number] Keppra Inj 500 MG In NS Inj 100 105 / 105 105 / 105 ML @ 400 mls/hr IV.SIG Q12H JACOB Rx#:[id number] Tube Feeding 40 / 40 395 / 395 Water Bolus Amount 250 / 250 420 / 420 Output: Urine Amount (Catheter) 1450 / 1450 1000 / 1000 Indwelling Urethral Catheter 1450 / 1450 1000 / 1000 Other: Date of Last Bowel Movement 06/02/18 06/02/18 06/02/18 Result Diagrams: 06/10/18 06:20 06/10/18 06:20 Objective Remarks: GENERAL: 68-year-old male lying in ICU bed , encephalopathic, orally intubated on mechanical ventilation SKIN: Focused skin assessment warm/dry. HEAD: Atraumatic. Normocephalic. EYES: Pupils equal and round. No scleral icterus. No injection or drainage. ENT: No nasal bleeding or discharge. ET tube in place, oral cavity dry. Trachea midline. CARDIOVASCULAR: Normal S1-S2. No murmurs. Regular rate and rhythm. No venous distention. RESPIRATORY: Orally intubated on mechanical ventilation, air entry decreased bilaterally at bases, few rhonchi, no adventitious sounds GASTROINTESTINAL: Abdomen soft, non-tender, nondistended. BS present. No guarding. MUSCULOSKELETAL: Warm, well perfused. Left knee swelling noted with bruising over skin below knee NEUROLOGICAL: Encephalopathic/sedated, orally intubated, Pupils equal 3mm, reactive, orally intubated on mechanical ventilation. Not responding to commands. Minimal withdrawal to pain. Assessment and Plan - Problem List (1) 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 Status: Acute (2) Encephalopathy acute Code(s): G93.40 - Encephalopathy, unspecified Status: Acute (3) Acute kidney failure Code(s): N17.9 - Acute kidney failure, unspecified Status: Acute (4) Severe sepsis Code(s): A41.9 - Sepsis, unspecified organism; R65.20 - Severe sepsis without septic shock Status: Acute (5) Metabolic acidemia Code(s): E87.2 - Acidosis Status: Acute (6) UTI (urinary tract infection) Code(s): N39.0 - Urinary tract infection, site not specified Status: Acute (7) Lactic acidosis Code(s): E87.2 - Acidosis Status: Acute (8) Rhabdomyolysis Code(s): M62.82 - Rhabdomyolysis Status: Acute (9) Obesity Code(s): E66.9 - Obesity, unspecified Status: Chronic (10) Hypertension Code(s): I10 - Essential (primary) hypertension Status: Chronic (11) Diabetes Code(s): E11.9 - Type 2 diabetes mellitus without complications Status: Chronic - Assessment and Plan Plan: NEURO: Brainstem hemorrhage measuring up to 2.8 cm in maximal diameter, mild mass effect Acute encephalopathy -Repeat CT findings as above -Neurosurgery Dr. Hopkins consulted and following - off 2% saline. Currently on free water/D5W for hypernatremia -Close neuro monitoring. MRI/MRA brain results noted -Repeat head CT 06/08 shows resolving brainstem hemorrhage. -Placed on Keppra for seizure prophylaxis -With MRSA bacteremia suspect septic emboli with mycotic aneurism vs hypertensive bleed. -More encephalopathic, intubated for airway protection. Propofol/ Precedex gtt for sedation following intubation with daily sedation vacation. -MRI spine reviewed, no evidence of epidural abscess RESP: Acute resp failure on mechanical ventilation Past smoking -DuoNeb every as needed -Continue mechanical ventilation, vent bundle, bronchodilators as needed -Await improvement in neurologic status prior to deciding extubation. Daily CPAP trials. CV: Lactic acidemia Hypotension History of hypertension -Lactic acid at the outside hospital was 6.8 -Normal saline IV fluids, transthoracic echo -Continue IV fluids. Change to half NS due to hyponatremia -Hold all antihypertensives due to borderline blood pressure following intubation. - cardiology Dr. Odonnell consulted to perform LAURIE to evaluate for endocarditis LAURIE performed on 06/10- for any vegetations. GI: -NG tube in place. Resume tube feeds and advance to goal as tolerated. : Acute kidney injury Rhabdomyolysis -Monitor renal function closely. Continue [place] catheter. -Strict intake output, monitor and replete electrolytes. -Nephrology consulted for rising creatinine-suspect multifactorial secondary to sepsis/vancomycin/gentamicin toxicity/IV contrast exposure. ID: Severe sepsis ESBL E. coli UTI MRSA bacteremia MRSA left knee septic arthritis -On Cubicin. -Cefepime changed to Invanz on 06/10 for ESBL E. coli in urine culture -Vancomycin and gentamicin discontinued on 06/08 per ID due to worsening renal function Blood cultures positive for MRSA (10/07) -ID consulted-Dr. Rodriguez -LAURIE negative for vegetation on 06/10 -s/p MRI left knee due to swelling -orthopedics performed left knee aspiration on 06/09 with drainage of 60 cc of purulent cloudy fluid which is growing MRSA. -Also following and to decide further management for left knee septic arthritis HEME: Leukocytosis secondary to sepsis -Monitor CBC, coags ENDO: Type 2 diabetes -Sliding scale insulin -Add basal long-acting insulin PROPH: -Bilateral lower extremity SCDs. IV famotidine. Start subcutaneous heparin for DVT prophylaxis which was cleared by neurosurgery. LINES: -Utilize peripheral IVs, central line if needed Overall impression: Blood pressure control remains problematic and will need additional scheduled medication. Agitation appears better controlled. Bacteremia remains crucial and possibly life-threatening problem -we need to find the source. 06/08: D/W Dr. Hopkins. Called patient's son Abraham Bautista at [phone] and updated him regarding current clinical status and plan to intubate and [facility] due to concern regarding airway protection and in order to safely get imaging and possibly LAURIE and he voiced understanding and was agreeable. 06/09: Discussed with ID, discussed with Dr. Hopkins. Awaiting LAURIE. Start tube feeds after LAURIE Discussed with ID, discussed with Dr. Hopkins condition critical. time spent on critical care excluding procedures: 40 min (1) Brain stem hemorrhage Qualifiers: Intracerebral hemorrhage etiology: nontraumatic
--- NOTE | 2018-06-10 15:25 | ECHRPT ---
Indication: SHORTNESS OF BREATH, POSS SEPSIS, ENDOCARDITIS CONCLUSIONS 1.) Normal lv size, wall thickness and sytolic function, ef=60% 2.) Normal appearing left atrial appendage 3.) Mild mr 4.) 2 mm linear opcity imaaged in mitral subvalvular apparatus, uncertain etiology 5.) moderately enlarged ascending aorta 6.) negative color Doppler for presence of trial septal shunt 7.) normal appearing aortic arch and descending thoracic aorta BP: / HR: Rhythm: Technical Quality: Medications Complications Proc. Components Nitesh Odonnell MD, FACC, FSCAI (Electronically Signed) Final Date:10 June 2018 15:24
--- NOTE | 2018-06-10 15:38 | P.PNNS ---
Subjective Interval history: remains intubated, sedated. LAURIE reportedly negative for vegetations. +MRSA left knee. Physical Exam Vital signs: Vital Signs 06/09/18 15:30 06/09/18 15:45 06/09/18 16:00 Temperature 99.2 F Pulse Rate 85 78 81 Respiratory Rate 28 H 28 H 27 H Blood Pressure 157/71 H 158/72 H 153/67 H Pulse Oximetry 100 100 100 06/09/18 16:15 06/09/18 16:30 06/09/18 16:36 Temperature Pulse Rate 83 87 84 Respiratory Rate 28 H 28 H 28 H Blood Pressure 150/65 H 150/67 H 150/67 H Pulse Oximetry 100 100 100 06/09/18 16:40 06/09/18 16:45 06/09/18 17:00 Temperature Pulse Rate 61 71 Respiratory Rate 25 H 26 H 28 H Blood Pressure 110/57 L 123/60 Pulse Oximetry 100 100 100 06/09/18 17:15 06/09/18 17:30 06/09/18 17:40 Temperature Pulse Rate 72 70 82 Respiratory Rate 27 H 27 H 27 H Blood Pressure 125/55 L 127/60 Pulse Oximetry 100 100 06/09/18 17:45 06/09/18 18:00 06/09/18 18:15 Temperature Pulse Rate 68 70 77 Respiratory Rate 28 H 27 H 28 H Blood Pressure 127/60 129/59 L 138/63 Pulse Oximetry 100 100 100 06/09/18 18:30 06/09/18 19:28 06/09/18 20:15 Temperature 99.7 F H Pulse Rate 75 73 69 Respiratory Rate 28 H 26 H 28 H Blood Pressure 138/63 142/64 H Pulse Oximetry 100 100 100 06/09/18 20:30 06/09/18 20:45 06/09/18 21:00 Temperature Pulse Rate 73 78 80 Respiratory Rate 26 H 26 H 28 H Blood Pressure 138/63 140/66 142/64 H Pulse Oximetry 100 100 100 06/09/18 21:15 06/09/18 21:30 06/09/18 21:45 Temperature Pulse Rate 78 74 81 Respiratory Rate 27 H 28 H 28 H Blood Pressure 143/63 H 136/61 143/65 H Pulse Oximetry 100 100 100 06/09/18 22:00 06/09/18 22:15 06/09/18 22:30 Temperature Pulse Rate 78 77 83 Respiratory Rate 27 H 28 H 29 H Blood Pressure 142/65 H 137/58 L 145/67 H Pulse Oximetry 100 100 100 06/09/18 22:45 06/09/18 23:00 06/09/18 23:15 Temperature Pulse Rate 77 81 81 Respiratory Rate 28 H 28 H 29 H Blood Pressure 141/63 H 142/64 H 137/63 Pulse Oximetry 100 100 100 06/09/18 23:30 06/09/18 23:45 06/10/18 00:00 Temperature 100.0 F H Pulse Rate 78 80 75 Respiratory Rate 28 H 29 H 28 H Blood Pressure 134/62 141/64 H 140/63 Pulse Oximetry 100 100 100 06/10/18 00:15 06/10/18 00:30 06/10/18 00:45 Temperature Pulse Rate 75 80 79 Respiratory Rate 28 H 29 H 28 H Blood Pressure 138/64 139/63 139/63 Pulse Oximetry 100 100 100 06/10/18 01:00 06/10/18 01:15 06/10/18 01:16 Temperature Pulse Rate 76 74 Respiratory Rate 28 H 28 H 28 H Blood Pressure 131/62 135/62 Pulse Oximetry 100 100 100 06/10/18 01:30 06/10/18 01:45 06/10/18 02:00 Temperature Pulse Rate 77 69 71 Respiratory Rate 29 H 28 H 30 H Blood Pressure 143/66 H 141/65 H 141/63 H Pulse Oximetry 100 100 100 06/10/18 02:15 06/10/18 02:30 06/10/18 02:45 Temperature 100.0 F H Pulse Rate 75 73 75 Respiratory Rate 30 H 29 H 28 H Blood Pressure 139/61 136/63 Pulse Oximetry 100 100 100 06/10/18 03:00 06/10/18 03:02 06/10/18 03:15 Temperature Pulse Rate 76 77 74 Respiratory Rate 30 H 28 H 29 H Blood Pressure 136/63 Pulse Oximetry 100 100 100 06/10/18 03:30 06/10/18 03:45 06/10/18 04:00 Temperature 99.1 F Pulse Rate 74 73 75 Respiratory Rate 29 H 27 H 27 H Blood Pressure 142/62 H Pulse Oximetry 100 100 100 06/10/18 04:02 06/10/18 04:15 06/10/18 04:30 Temperature Pulse Rate 71 71 71 Respiratory Rate 28 H 28 H 27 H Blood Pressure 142/62 H Pulse Oximetry 100 100 100 06/10/18 04:36 06/10/18 04:45 06/10/18 05:00 Temperature Pulse Rate 75 81 86 Respiratory Rate 27 H 29 H 30 H Blood Pressure Pulse Oximetry 100 100 100 06/10/18 05:02 06/10/18 05:15 06/10/18 05:30 Temperature Pulse Rate 85 91 H 93 H Respiratory Rate 39 H 62 H 61 H Blood Pressure 160/70 H Pulse Oximetry 100 100 100 06/10/18 05:45 06/10/18 05:53 06/10/18 06:00 Temperature Pulse Rate 91 H 93 H 88 Respiratory Rate 43 H 47 H 36 H Blood Pressure 155/67 H Pulse Oximetry 100 100 100 06/10/18 06:02 06/10/18 06:15 06/10/18 06:30 Temperature Pulse Rate 86 84 83 Respiratory Rate 34 H 59 H 58 H Blood Pressure 138/63 Pulse Oximetry 100 100 100 06/10/18 07:02 06/10/18 07:25 06/10/18 08:00 Temperature 98.8 F Pulse Rate 76 88 81 Respiratory Rate 60 H 25 H 28 H Blood Pressure 133/59 L 127/58 L Pulse Oximetry 100 100 100 06/10/18 09:00 06/10/18 09:30 06/10/18 10:00 Temperature Pulse Rate 83 80 71 Respiratory Rate 45 H 41 H 28 H Blood Pressure 147/67 H 132/62 120/57 L Pulse Oximetry 100 100 100 06/10/18 10:30 06/10/18 11:00 06/10/18 11:30 Temperature Pulse Rate 72 70 69 Respiratory Rate 28 H 28 H 32 H Blood Pressure 122/58 L 125/57 L 123/58 L Pulse Oximetry 100 100 100 06/10/18 12:00 06/10/18 12:03 06/10/18 12:30 Temperature 98.8 F Pulse Rate 75 71 Respiratory Rate 28 H 27 H 27 H Blood Pressure 126/58 L 128/60 Pulse Oximetry 100 100 100 06/10/18 13:51 06/10/18 14:52 Temperature Pulse Rate 74 Respiratory Rate 27 H Blood Pressure Pulse Oximetry 100 100 Intake & Output 06/09/18 06/10/18 06/10/18 18:59 06:59 18:59 Intake Total 2595 / 2595 3015 / 3015 1205 / 1205 Output Total 1450 / 1450 1000 / 1000 Balance 1145 / 1145 2014 1205 / 1205 Weight 136.1 kg Intake: IV 2305 / 2305 2200 / 2200 1205 / 1205 Diprivan 1000 mg/100 ml Inj 1, 100 / 100 100 / 100 000 mg In 100 ml @ 5 MCG/KG/MIN 3.972 mls/hr IV.CONT TITRATE PRN Rx#:[id number] 1/2 Normal Saline Inj 1,000 ML 2000 / 2000 2000 / 2000 1000 / 1000 @ 125 mls/hr IV.CONT .Q8H JACOB Rx#:[id number] Maxipime Inj 1,000 MG In NS Inj 100 / 100 100 / 100 100 / 100 100 ML @ 200 mls/hr IV.SIG Q12H JACOB Rx#:[id number] Keppra Inj 500 MG In NS Inj 100 105 / 105 105 / 105 ML @ 400 mls/hr IV.SIG Q12H JACOB Rx#:[id number] Tube Feeding 40 / 40 395 / 395 Water Bolus Amount 250 / 250 420 / 420 Output: Urine Amount (Catheter) 1450 / 1450 1000 / 1000 Indwelling Urethral Catheter 1450 / 1450 1000 / 1000 Other: Date of Last Bowel Movement 06/02/18 06/02/18 06/02/18 Narrative: intubated sedated pupils equal - Urinary Catheter Management Indwelling Urethral Catheter Cath placed during this visit: yes Reason for continuing: Hourly intake/output Insertion date: 06/03/18 Insertion time: 03:00 Assessment and Plan - Plan 68 year old male with brainstem hemorrhage, stable Septicemia, Bacteremia, ?source. LAURIE negative for vegetations Head CT 06/08/18 00:00 CONCLUSION: 1. Resolving subarachnoid hemorrhage. No acute hemorrhage is identified. Cervical Spine MRI 06/08/18 07:09 CONCLUSION: 1. Increased signal anterior to the C6-C7 disc level and between the prominent anterior marginal osteophytes. The anterior longitudinal ligament is not seen. This could be the sequela of an injury in this region. The remaining aspect of the disc is intact. The vertebral bodies demonstrate normal signal. Prevertebral soft tissue swelling is not seen. This could be chronic. Fluid resembling a pseudarthrosis can also develop between osteophytes potentially. The remaining soft tissues appear intact. 2. Mild left lateral recess disc protrusion at the C2-C3 level. 3. Mild central disc protrusion at the C3-C4 level. 4. Mild disc bulge at the C5-C6 level and minimal disc bulge at the C4-C5 level. 5. Scattered neural foraminal narrowing as described above. Lumbar Spine MRI 06/08/18 07:09 CONCLUSION: 1. Severe stenosis at the L4-L5 level. 2. Moderate stenosis at the L2-L3 level. 3. Minimal disc bulge at the L1-L2 level with a small inferiorly directed extruded disc fragment at the right side. Significant stenosis is not seen at this level. 4. No focal fluid collection is identified. Thoracic Spine MRI 06/08/18 07:09 CONCLUSION: 1. Limited, noncontrast examination with no evidence of abscess. 2. Small posterior central protrusion at T5-6 with mild flattening of the anterior cord. 3. Posterior disc bulge at T6-7 with mild flattening of the anterior thecal sac. cont neuro checks cont critical care mgt
[2018-06-10] MEDS: DAPTOmycin Inj 800 MG in Sodium Chlor 0.9% Inj 100 ML IV.SIG SCH (16:23)
[2018-06-10] MEDS: Ertapenem Inj 500 MG in Sodium Chlor 0.9% Inj 100 ML IV.SIG SCH (16:23)
[2018-06-10] MEDS: Heparin - SQ 10,000 UNITS/ML Vial SQ SCH (20:52)
[2018-06-11] MEDS: Insulin NovoLIN Regular Correctional Sugar Inj SQ SCH ×7 (00:51→23:28)
[2018-06-11] MEDS: Oral Hygiene Kit OROPHARYNG SCH ×5 (00:52→23:29)
[2018-06-11] MEDS: Propofol 1000 mg/100 ml Inj 1,000 MG/100 ML BOTTLE IV.CONT PRN ×3 (00:52→21:31)
[2018-06-11] MEDS: Sodium Chloride 0.45 % Inj 1,000 ML IV.CONT SCH ×3 (04:48→21:11)
[2018-06-11 08:37] LABS: Baso # (Auto) 0.1 th/mm3 (0.0-0.2); Baso % (Auto) 0.5 % (0.0-2.0); Eos # (Auto) 0.2 th/mm3 (0.0-0.4); Eos % (Auto) 1.9 % (0.0-4.0); Hematocrit 29.7 % (39.0-51.0); Hemoglobin 9.4 gm/dL (13.0-17.0); Lymph # (Auto) 0.8 th/mm3 (1.0-4.8); Lymph % (Auto) 7.1 % (9.0-44.0); Mean Corpuscular HGB Conc 31.7 % (32.0-36.0); Mean Corpuscular Hemoglobin 29.3 pg (27.0-34.0); Mean Corpuscular Volume 92.4 fL (80.0-100.0); Mean Platelet Volume 9.8 fL (7.0-11.0); Mono # (Auto) 0.6 th/mm3 (0.0-0.9); Mono % (Auto) 5.3 % (0.0-8.0); Neut # (Auto) 9.6 th/mm3 (1.8-7.7); Neut % (Auto) 85.2 % (16.0-70.0); Platelet Count 158 th/mm3 (150-450); Red Blood Count 3.22 mil/mm3 (4.50-5.90); Red Cell Distribution Width 17.4 % (11.6-17.2); White Blood Count 11.3 th/mm3 (4.0-11.0)
[2018-06-11 09:00] LABS: Calcium 7.2 mg/dL (8.5-10.1); Carbon Dioxide 18.4 meq/L (21.0-32.0); Potassium 4.4 meq/L (3.5-5.1)
[2018-06-11 09:12] LABS: Albumin 1.8 g/dL (3.4-5.0)
--- NOTE | 2018-06-11 09:47 | P.PNCC ---
Subjective Subjective Remarks/Hospital Course: 06/03: Patient is a 68-year-old male with past medical history significant for type 2 diabetes, hypertension, morbid obesity who presented to the [facility] emergency department with weakness and slurred speech. Symptoms present for 2 days, apparently he was found on the floor of his mobile home. He was noted to have high fever at the [facility] his WBC count was 21.3 UA was positive. His sodium was 134 BUN 50 with a creatinine of 2.33 bicarb was 16 lactic acid was 6.8. CPK more than 3000 at the outside hospital. A CT of the head showed focal hemorrhage into the right quadrigeminal plate cistern. Dr. Hopkins was contacted who accepted the patient and requested admission to critical care. Patient was accepted to [facility] at [place] Dr. Deluca evaluated the patient in the [facility], he is lying in the bed. Slightly tachypneic moderate distress. Patient is oriented to place and person. CT of the head repeated here at [facility] showed hemorrhage along the posterior aspect of the brainstem measuring up to 2.8 cm in maximal diameter. Mild mass effect on the brainstem. No hydrocephalus. I have started the patient on Cardene infusion for tight blood pressure control. Zosyn for UTI. 2% saline will be started to keep sodium above 150. Avoid mannitol due to renal failure. Keppra for seizure prophylaxis. I am unable to find coags but platelet count was normal. 06/04: MRSA bacteremia ob blood cultures drawn on admission. Currently on precedex, on room air. Awake, follows commands, speech, unintelligible. Started on IV vanc. ID consulted as concern for septic emboli/ endocarditis as cause for brainstem bleed. 06/05: 48 hours following a mid brain spontaneous hemorrhage complicated by numerous MRSA blood cultures. Blood pressure acceptably well controlled. Fever pattern persists. Patient tolerating extubation and protecting airway adequately. Taper completely off Precedex. Serum osmolality acceptably concentrated. 06/06: Serum osmolality acceptable, will allow sodium to drift back into the lower 150s now. Patient is alert and interactive. He moves 4 limbs spontaneously. Episodic fevers to 102+. We will continue with infectious disease workup for source of bacteremia. Endocarditis remains high on the list of possibilities. 06/07: Awake, alert, following commands. Speech very slurred however responds appropriately. Slight disorientation. Thought he was in [place]. Knows he is in the hospital. Complains of back pain. 06/08: Drowsy, arousable, tachypneic. Sodium up to 163, started on D5W and free water. Creatinine up. Tolerating tube feeds. Awaiting MRI. Will need LAURIE. Will need intubation probably for airway and in order to transport for MRI and LAURIE. 06/09: Patient intubated and placed on mechanical ventilation on 06/09. Dr. Hopkins has cleared patient for LAURIE/anticoagulation/valve surgery if needed. We are awaiting LAURIE for further evaluation of MRSA bacteremia by cardiology to determine source. Orthopedics evaluating left knee synovitis/effusion/meniscal tear. 06/10: Underwent aspiration of the left knee yesterday which is growing MRSA. Remains sedated, orally intubated on mechanical ventilation. Underwent LAURIE today which did not reveal any vegetation. Being followed by orthopedics/ID/ neurosurgery. 06/11: Remains orally intubated on mechanical ventilation. Scheduled for OR for left knee septic arthritis with Dr. Carlson today Objective Vital Signs / I&O: Vital Signs 06/10/18 10:00 06/10/18 10:30 06/10/18 11:00 Temperature Pulse Rate 71 72 70 Respiratory Rate 28 H 28 H 28 H Blood Pressure 120/57 L 122/58 L 125/57 L Pulse Oximetry 100 100 100 06/10/18 11:30 06/10/18 12:00 06/10/18 12:03 Temperature 98.8 F Pulse Rate 69 75 Respiratory Rate 32 H 28 H 27 H Blood Pressure 123/58 L 126/58 L Pulse Oximetry 100 100 100 06/10/18 12:30 06/10/18 13:00 06/10/18 13:30 Temperature Pulse Rate 71 77 73 Respiratory Rate 27 H 28 H 28 H Blood Pressure 128/60 135/63 130/59 L Pulse Oximetry 100 100 100 06/10/18 13:46 06/10/18 13:51 06/10/18 14:00 Temperature Pulse Rate 87 69 Respiratory Rate 26 H 27 H Blood Pressure 143/62 H 119/58 L Pulse Oximetry 100 100 100 06/10/18 14:30 06/10/18 14:52 06/10/18 15:00 Temperature Pulse Rate 72 74 71 Respiratory Rate 26 H 27 H 31 H Blood Pressure 124/58 L 129/63 Pulse Oximetry 100 100 100 06/10/18 15:30 06/10/18 16:00 06/10/18 16:30 Temperature Pulse Rate 74 71 70 Respiratory Rate 27 H 34 H 28 H Blood Pressure 132/61 130/61 127/59 L Pulse Oximetry 100 100 100 06/10/18 17:00 06/10/18 17:30 06/10/18 18:00 Temperature Pulse Rate 74 74 68 Respiratory Rate 26 H 26 H 25 H Blood Pressure 131/61 133/60 125/60 Pulse Oximetry 100 100 100 06/10/18 18:30 06/10/18 19:00 06/10/18 19:30 Temperature Pulse Rate 66 67 71 Respiratory Rate 25 H 25 H 24 Blood Pressure 125/60 128/60 123/57 L Pulse Oximetry 100 100 100 06/10/18 20:00 06/10/18 20:12 06/10/18 20:14 Temperature 98.9 F Pulse Rate 72 70 Respiratory Rate 25 H 25 H 25 H Blood Pressure 130/62 Pulse Oximetry 100 100 06/10/18 20:30 06/10/18 21:00 06/10/18 21:30 Temperature Pulse Rate 75 76 70 Respiratory Rate 25 H 32 H 25 H Blood Pressure 131/59 L 116/59 L 121/60 Pulse Oximetry 100 100 100 06/10/18 22:00 06/10/18 22:30 06/10/18 23:00 Temperature Pulse Rate 69 66 79 Respiratory Rate 23 22 24 Blood Pressure 117/58 L 123/60 125/61 Pulse Oximetry 100 100 100 06/10/18 23:20 06/10/18 23:30 06/11/18 00:00 Temperature 98.6 F Pulse Rate 81 86 Respiratory Rate 25 H 26 H 25 H Blood Pressure 133/62 138/65 Pulse Oximetry 100 100 100 06/11/18 00:30 06/11/18 01:00 06/11/18 01:30 Temperature Pulse Rate 76 75 83 Respiratory Rate 26 H 29 H 26 H Blood Pressure 135/61 135/63 136/63 Pulse Oximetry 100 100 100 06/11/18 02:00 06/11/18 02:30 06/11/18 03:00 Temperature Pulse Rate 83 81 80 Respiratory Rate 26 H 25 H 26 H Blood Pressure 140/63 143/65 H 129/60 Pulse Oximetry 100 100 100 06/11/18 03:30 06/11/18 04:00 06/11/18 04:30 Temperature 98.9 F Pulse Rate 72 84 90 Respiratory Rate 34 H 26 H 30 H Blood Pressure 129/60 168/68 H 164/79 H Pulse Oximetry 100 100 100 06/11/18 05:00 06/11/18 05:30 06/11/18 06:00 Temperature Pulse Rate 76 81 84 Respiratory Rate 29 H 26 H 28 H Blood Pressure 141/67 H 141/65 H 155/72 H Pulse Oximetry 100 100 100 06/11/18 06:30 06/11/18 07:00 06/11/18 07:30 Temperature Pulse Rate 88 84 81 Respiratory Rate 29 H 25 H 25 H Blood Pressure 163/72 H 150/69 H 144/63 H Pulse Oximetry 100 100 100 06/11/18 07:34 06/11/18 08:00 06/11/18 09:11 Temperature 98.1 F Pulse Rate 81 83 Respiratory Rate 25 H 23 25 H Blood Pressure 140/63 Pulse Oximetry 100 100 Intake & Output 06/10/18 06/11/18 06/11/18 18:59 06:59 18:59 Intake Total 1645 / 1645 2855 / 2855 Output Total 1300 / 1300 1250 / 1250 475 / 475 Balance 345 / 345 1605 / 1605 -475 / -475 Weight 140.7 kg Intake: IV 1645 / 1645 2140 / 2140 Precedex Inj 200 MCG In NS Inj 35 / 35 48 ML @ 0.2 MCG/KG/HR 6.65 mls/ hr IV.CONT TITRATE PRN Rx#: [id number] Diprivan 1000 mg/100 ml Inj 1, 100 / 100 100 / 100 000 mg In 100 ml @ 5 MCG/KG/MIN 3.972 mls/hr IV.CONT TITRATE PRN Rx#:[id number] 1/2 Normal Saline Inj 1,000 ML 1000 / 1000 1935 / 1935 @ 125 mls/hr IV.CONT .Q8H JACOB Rx#:[id number] Maxipime Inj 1,000 MG In NS Inj 100 / 100 100 ML @ 200 mls/hr IV.SIG Q12H JACOB Rx#:[id number] Cubicin Inj 800 MG In NS Inj 100 / 100 100 ML @ 200 mls/hr IV.SIG Q48H JACOB Rx#:[id number] INVanz Inj 500 MG In NS Inj 100 100 / 100 ML @ 200 mls/hr IV.SIG Q24H JACOB Rx#:[id number] Keppra Inj 500 MG In NS Inj 100 210 / 210 105 / 105 ML @ 400 mls/hr IV.SIG Q12H JACOB Rx#:[id number] Tube Feeding 215 / 215 Water Bolus Amount 500 / 500 Output: Urine Amount (Catheter) 1300 / 1300 1250 / 1250 475 / 475 Indwelling Urethral Catheter 1300 / 1300 1250 / 1250 475 / 475 Other: Date of Last Bowel Movement 06/02/18 06/02/18 Result Diagrams: 06/11/18 08:13 06/11/18 08:13 Objective Remarks: GENERAL: 68-year-old male lying in ICU bed , encephalopathic, orally intubated on mechanical ventilation SKIN: Focused skin assessment warm/dry. HEAD: Atraumatic. Normocephalic. EYES: Pupils equal and round. No scleral icterus. No injection or drainage. ENT: No nasal bleeding or discharge. ET tube in place, oral cavity dry. Trachea midline. CARDIOVASCULAR: Normal S1-S2. No murmurs. Regular rate and rhythm. No venous distention. RESPIRATORY: Orally intubated on mechanical ventilation, air entry decreased bilaterally at bases, few rhonchi, no adventitious sounds GASTROINTESTINAL: Abdomen soft, non-tender, nondistended. BS present. No guarding. MUSCULOSKELETAL: Warm, well perfused. Left knee swelling noted with bruising over skin below knee NEUROLOGICAL: Encephalopathic/sedated, orally intubated, Pupils equal 3mm, reactive, orally intubated on mechanical ventilation. Not responding to commands. Minimal withdrawal to pain. Assessment and Plan - Problem List (1) 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 Status: Acute (2) Encephalopathy acute Code(s): G93.40 - Encephalopathy, unspecified Status: Acute (3) Acute kidney failure Code(s): N17.9 - Acute kidney failure, unspecified Status: Acute (4) Severe sepsis Code(s): A41.9 - Sepsis, unspecified organism; R65.20 - Severe sepsis without septic shock Status: Acute (5) Metabolic acidemia Code(s): E87.2 - Acidosis Status: Acute (6) UTI (urinary tract infection) Code(s): N39.0 - Urinary tract infection, site not specified Status: Acute (7) Lactic acidosis Code(s): E87.2 - Acidosis Status: Acute (8) Rhabdomyolysis Code(s): M62.82 - Rhabdomyolysis Status: Acute (9) Obesity Code(s): E66.9 - Obesity, unspecified Status: Chronic (10) Hypertension Code(s): I10 - Essential (primary) hypertension Status: Chronic (11) Diabetes Code(s): E11.9 - Type 2 diabetes mellitus without complications Status: Chronic - Assessment and Plan Plan: NEURO: Brainstem hemorrhage measuring up to 2.8 cm in maximal diameter, mild mass effect Acute encephalopathy -Repeat CT findings as above -Neurosurgery Dr. Hopkins consulted and following - off 2% saline. Currently on free water/D5W for hypernatremia -Close neuro monitoring. MRI/MRA brain results noted -Repeat head CT 06/08 shows resolving brainstem hemorrhage. -Placed on Keppra for seizure prophylaxis -With MRSA bacteremia suspect septic emboli with mycotic aneurism vs hypertensive bleed. -More encephalopathic, intubated for airway protection. Propofol/ Precedex gtt for sedation following intubation with daily sedation vacation. -MRI spine reviewed, no evidence of epidural abscess RESP: Acute resp failure on mechanical ventilation Past smoking -DuoNeb every as needed -Continue mechanical ventilation, vent bundle, bronchodilators as needed -Await improvement in neurologic status prior to deciding extubation. Daily CPAP trials. CV: Lactic acidemia Hypotension History of hypertension -Lactic acid at the outside hospital was 6.8 -Normal saline IV fluids, transthoracic echo -Continue IV fluids. Change to half NS due to hyponatremia -Hold all antihypertensives due to borderline blood pressure following intubation. - cardiology Dr. Odon[place] consulted to perform LAURIE to evaluate for endocarditis LAURIE performed on 06/10- for any vegetations. GI: -NG tube in place. Resume tube feeds and advance to goal as tolerated. : Acute kidney injury Rhabdomyolysis -Monitor renal function closely. Continue [place] catheter. -Strict intake output, monitor and replete electrolytes. -Nephrology consulted for rising creatinine-suspect multifactorial secondary to sepsis/vancomycin/gentamicin toxicity/IV contrast exposure. ID: Severe sepsis ESBL E. coli UTI MRSA bacteremia MRSA left knee septic arthritis -On Cubicin. -Cefepime changed to Invanz on 06/10 for ESBL E. coli in urine culture -Vancomycin and gentamicin discontinued on 06/08 per ID due to worsening renal function Blood cultures positive for MRSA (10/07) -ID consulted-Dr. Rodriguez -LAURIE negative for vegetation on 06/10 -s/p MRI left knee due to swelling -orthopedics performed left knee aspiration on 06/09 with drainage of 60 cc of purulent cloudy fluid which is growing MRSA. -Ortho following and to decide further management for left knee septic arthritis - scheduled for OR for 06/11 HEME: Leukocytosis secondary to sepsis -Monitor CBC, coags ENDO: Type 2 diabetes -Sliding scale insulin -Add basal long-acting insulin PROPH: -Bilateral lower extremity SCDs. IV famotidine. Start subcutaneous heparin for DVT prophylaxis which was cleared by neurosurgery. LINES: -Utilize peripheral IVs, central line if needed Overall impression: Blood pressure control remains problematic and will need additional scheduled medication. Agitation appears better controlled. Bacteremia remains crucial and possibly life-threatening problem 06/08: D/W Dr. Hopkins. Called patient's son Abraham Bautista at [phone] and updated him regarding current clinical status and plan to intubate and place on mech ventilation due to concern regarding airway protection and in order to safely get imaging and possibly LAURIE and he voiced understanding and was agreeable. 06/09: Discussed with ID, discussed with Dr. Hopkins. Awaiting LAURIE. Start tube feeds after LAURIE 06/10, !08/12: D/W ID condition critical. time spent on critical care excluding procedures: 40 min (1) Brain stem hemorrhage Qualifiers: Intracerebral hemorrhage etiology: nontraumatic
[2018-06-11] MEDS: Famotidine PF Inj 20 MG/2 ML Vial IV.PUSH SCH ×2 (09:49→21:04)
[2018-06-11] MEDS: Chlorhexidine 0.12% Oral Kit 15 ML UDC OROPHARYNG SCH ×2 (09:49→21:04)
[2018-06-11] MEDS: Heparin - SQ 10,000 UNITS/ML Vial SQ SCH ×2 (10:01→21:05)
[2018-06-11] MEDS: Senna/Docusate Sodium 8.6/50 MG Tablet PO SCH ×2 (10:02→21:05)
--- NOTE | 2018-06-11 10:23 | P.PNID ---
Subjective Remarks: Patient is a 68-year-old male, brought into the hospital initially at [facility] for evaluation of weakness and slurred speech. It apparently has been present for several days. He was found on the floor of his mobile home. At [facility] he was found to be febrile, WBC up to 21,000, urinalysis with pyuria, creatinine 2.33, and lactic acid was elevated. CT of the head showed focal hemorrhage in the posterior fossa. Patient was transferred to [facility] for neurosurgical evaluation. Patient since admission has had elevated temperature. His blood cultures done on admission are now reported as growing gram-positive cocci, MRSA. His urine culture is also growing MRSA. On evaluation in the intensive care unit, he is awake, and interactive. He looks slightly tachypneic at rest and and on nasal O2. He has some confusion but mostly his oriented. His chest x-ray is normal. Echo is showing calcification in the aortic valve. No vegetations seen. Infectious disease consultation has been requested to assist with evaluation and treatment of patient with MRSA bacteremia. Notes reviewed D/W RN Last fever >24 hours ago For OR today to his L knee Sedated on the vent LAURIE no vegetation seen Last (+) BC 06/[address] A/P - no abscess Head MRA - no aneurysm All BC with MRSA, Vanco DARYL 1 - BC 06/03-06/06 Last CXR - clear L knee fluid C/S MRSA Antibiotics: Cubicin Lines: PIV Past Medical History: Diabetes History of MRSA infection Onset Date: ~06/03/18 Hypertension Obesity UTI (urinary tract infection) Allergies/Adverse Reactions: Allergies No Known Allergies Allergy (Verified 06/03/18 01:32) Objective Vital Signs 06/10/18 10:30 06/10/18 11:00 06/10/18 11:30 Temperature Pulse Rate 72 70 69 Respiratory Rate 28 H 28 H 32 H Blood Pressure 122/58 L 125/57 L 123/58 L Pulse Oximetry 100 100 100 06/10/18 12:00 06/10/18 12:03 06/10/18 12:30 Temperature 98.8 F Pulse Rate 75 71 Respiratory Rate 28 H 27 H 27 H Blood Pressure 126/58 L 128/60 Pulse Oximetry 100 100 100 06/10/18 13:00 06/10/18 13:30 06/10/18 13:46 Temperature Pulse Rate 77 73 87 Respiratory Rate 28 H 28 H 26 H Blood Pressure 135/63 130/59 L 143/62 H Pulse Oximetry 100 100 100 06/10/18 13:51 06/10/18 14:00 06/10/18 14:30 Temperature Pulse Rate 69 72 Respiratory Rate 27 H 26 H Blood Pressure 119/58 L 124/58 L Pulse Oximetry 100 100 100 06/10/18 14:52 06/10/18 15:00 06/10/18 15:30 Temperature Pulse Rate 74 71 74 Respiratory Rate 27 H 31 H 27 H Blood Pressure 129/63 132/61 Pulse Oximetry 100 100 100 06/10/18 16:00 06/10/18 16:30 06/10/18 17:00 Temperature Pulse Rate 71 70 74 Respiratory Rate 34 H 28 H 26 H Blood Pressure 130/61 127/59 L 131/61 Pulse Oximetry 100 100 100 06/10/18 17:30 06/10/18 18:00 06/10/18 18:30 Temperature Pulse Rate 74 68 66 Respiratory Rate 26 H 25 H 25 H Blood Pressure 133/60 125/60 125/60 Pulse Oximetry 100 100 100 06/10/18 19:00 06/10/18 19:30 06/10/18 20:00 Temperature 98.9 F Pulse Rate 67 71 72 Respiratory Rate 25 H 24 25 H Blood Pressure 128/60 123/57 L 130/62 Pulse Oximetry 100 100 100 06/10/18 20:12 06/10/18 20:14 06/10/18 20:30 Temperature Pulse Rate 70 75 Respiratory Rate 25 H 25 H 25 H Blood Pressure 131/59 L Pulse Oximetry 100 100 06/10/18 21:00 06/10/18 21:30 06/10/18 22:00 Temperature Pulse Rate 76 70 69 Respiratory Rate 32 H 25 H 23 Blood Pressure 116/59 L 121/60 117/58 L Pulse Oximetry 100 100 100 06/10/18 22:30 06/10/18 23:00 06/10/18 23:20 Temperature Pulse Rate 66 79 Respiratory Rate 22 24 25 H Blood Pressure 123/60 125/61 Pulse Oximetry 100 100 100 06/10/18 23:30 06/11/18 00:00 06/11/18 00:30 Temperature 98.6 F Pulse Rate 81 86 76 Respiratory Rate 26 H 25 H 26 H Blood Pressure 133/62 138/65 135/61 Pulse Oximetry 100 100 100 06/11/18 01:00 06/11/18 01:30 06/11/18 02:00 Temperature Pulse Rate 75 83 83 Respiratory Rate 29 H 26 H 26 H Blood Pressure 135/63 136/63 140/63 Pulse Oximetry 100 100 100 06/11/18 02:30 06/11/18 03:00 06/11/18 03:30 Temperature Pulse Rate 81 80 72 Respiratory Rate 25 H 26 H 34 H Blood Pressure 143/65 H 129/60 129/60 Pulse Oximetry 100 100 100 06/11/18 04:00 06/11/18 04:30 06/11/18 05:00 Temperature 98.9 F Pulse Rate 84 90 76 Respiratory Rate 26 H 30 H 29 H Blood Pressure 168/68 H 164/79 H 141/67 H Pulse Oximetry 100 100 100 06/11/18 05:30 06/11/18 06:00 06/11/18 06:30 Temperature Pulse Rate 81 84 88 Respiratory Rate 26 H 28 H 29 H Blood Pressure 141/65 H 155/72 H 163/72 H Pulse Oximetry 100 100 100 06/11/18 07:00 06/11/18 07:30 06/11/18 07:34 Temperature Pulse Rate 84 81 Respiratory Rate 25 H 25 H 25 H Blood Pressure 150/69 H 144/63 H Pulse Oximetry 100 100 100 06/11/18 08:00 06/11/18 09:11 Temperature 98.1 F Pulse Rate 81 83 Respiratory Rate 23 25 H Blood Pressure 140/63 Pulse Oximetry 100 Intake & Output 06/10/18 06/11/18 06/11/18 18:59 06:59 18:59 Intake Total 1645 / 1645 2855 / 2855 Output Total 1300 / 1300 1250 / 1250 475 / 475 Balance 345 / 345 1605 / 1605 -475 / -475 Weight 140.7 kg Intake: IV 1645 / 1645 2140 / 2140 Precedex Inj 200 MCG In NS Inj 35 / 35 48 ML @ 0.2 MCG/KG/HR 6.65 mls/ hr IV.CONT TITRATE PRN Rx#: [id number] Diprivan 1000 mg/100 ml Inj 1, 100 / 100 100 / 100 000 mg In 100 ml @ 5 MCG/KG/MIN 3.972 mls/hr IV.CONT TITRATE PRN Rx#:[id number] 1/2 Normal Saline Inj 1,000 ML 1000 / 1000 1935 / 1935 @ 125 mls/hr IV.CONT .Q8H [facility] Rx#:[id number] Maxipime Inj 1,000 MG In NS Inj 100 / 100 100 ML @ 200 mls/hr IV.SIG Q12H [facility] Rx#:[id number] Cubicin Inj 800 MG In NS Inj 100 / 100 100 ML @ 200 mls/hr IV.SIG Q48H [facility] Rx#:[id number] INVanz Inj 500 MG In NS Inj 100 100 / 100 ML @ 200 mls/hr IV.SIG Q24H [facility] Rx#:[id number] Keppra Inj 500 MG In NS Inj 100 210 / 210 105 / 105 ML @ 400 mls/hr IV.SIG Q12H [facility] Rx#:[id number] Tube Feeding 215 / 215 Water Bolus Amount 500 / 500 Output: Urine Amount (Catheter) 1300 / 1300 1250 / 1250 475 / 475 Indwelling Urethral Catheter 1300 / 1300 1250 / 1250 475 / 475 Other: Date of Last Bowel Movement 06/02/18 06/02/18 06/10/18 06:20 Blood - Peripheral Aerobic Blood Culture - Preliminary gram positive cocci 06/10/18 06:20 Blood - Peripheral Anaerobic Blood Culture - Pending 06/09/18 11:35 Fluid - Synovial Fluid Gram Stain - Final 06/09/18 11:35 Fluid - Synovial Fluid Body Fluid Culture - Preliminary S. aureus MRSA 06/11/18 07:41 Blood - Peripheral Aerobic Blood Culture - Pending 06/11/18 07:41 Blood - Peripheral Anaerobic Blood Culture - Pending 06/08/18 18:30 Sputum - Endotracheal Gram Stain - Final 06/08/18 18:30 Sputum - Endotracheal Sputum Culture - Final Heavy growth normal respiratory sepideh 06/08/18 14:00 Blood - Peripheral Aerobic Blood Culture - Final S. aureus MRSA 06/08/18 14:00 Blood - Peripheral Anaerobic Blood Culture - Preliminary No growth in 2 days 06/08/18 05:54 Blood - Peripheral Aerobic Blood Culture - Final S. aureus MRSA 06/08/18 05:54 Blood - Peripheral Anaerobic Blood Culture - Preliminary No growth in 2 days 06/07/18 14:19 Blood - Peripheral Aerobic Blood Culture - Final S. aureus MRSA 06/07/18 14:19 Blood - Peripheral Anaerobic Blood Culture - Preliminary No growth in 3 days 06/06/18 04:13 Blood - Peripheral Aerobic Blood Culture - Final S. aureus MRSA 06/06/18 04:13 Blood - Peripheral Anaerobic Blood Culture - Preliminary No growth in 4 days 06/04/18 16:45 Blood - Peripheral Aerobic Blood Culture - Final S. aureus MRSA 06/04/18 16:45 Blood - Peripheral Anaerobic Blood Culture - Final No growth in 5 days 06/04/18 16:45 Blood - Peripheral Aerobic Blood Culture - Final S. aureus MRSA 06/04/18 16:45 Blood - Peripheral Anaerobic Blood Culture - Final No growth in 5 days 06/07/18 12:49 Catheterized Urine Urine Culture - Final Escherichia coli ESBL positive Lab - Hematology Results 06/10/18 06/11/18 06:20 08:13 WBC 15.6 H 11.3 H RBC 3.36 L 3.22 L Hgb 9.9 L 9.4 L Hct 30.7 L 29.7 L MCV 91.4 92.4 MCH 29.5 29.3 MCHC 32.3 31.7 L RDW 18.0 H 17.4 H Plt Count 193 158 MPV 10.0 9.8 Neut % (Auto) 83.0 H 85.2 H Lymph % (Auto) 8.3 L 7.1 L [place] % (Auto) 5.4 5.3 Eos % (Auto) 2.8 1.9 Baso % (Auto) 0.5 0.5 Neut # (Auto) 12.9 H 9.6 H Lymph # (Auto) 1.3 0.8 L [place] # (Auto) 0.8 0.6 Eos # (Auto) 0.4 0.2 Baso # (Auto) 0.1 0.1 WBC Differential . . Differential Comment Auto diff final Auto diff final Lab - Chemistry Results 06/09/18 06/09/18 06/09/18 13:07 18:09 21:35 Sodium Potassium Chloride Carbon Dioxide Anion Gap BUN Creatinine Estimated GFR POC Glucose 184 H 135 H 173 H Random Glucose Calcium Calcium Adj for Albumin Phosphorus Total Protein (PEP) Albumin Albumin (PEP) Albumin/Globulin Ratio Wixia-6-Wzlyrdqcg Guynx-6-Gvwdziucv Beta Globulins Gamma Globulins 12/06/18 12/06/18 12/06/18 02:55 06:20 07:50 Sodium 156 H* Potassium 4.5 Chloride 128 H Carbon Dioxide 20.2 L Anion Gap 8 BUN 80 H Creatinine 3.37 H Estimated GFR 18 L POC Glucose 156 H 164 H Random Glucose 172 H Calcium 7.3 L* Calcium Adj for Albumin Phosphorus 4.9 Total Protein (PEP) 6.5 Albumin 1.9 L Albumin (PEP) 2.41 L Albumin/Globulin Ratio 0.59 L Zedxy-7-Iiptpuabe 0.44 H Dfaht-2-Lrbxqoehz 1.04 H Beta Globulins 0.61 Gamma Globulins 2.00 H 06/10/18 06/10/18 06/10/18 12:08 16:51 20:34 Sodium Potassium Chloride Carbon Dioxide Anion Gap BUN Creatinine Estimated GFR POC Glucose 184 H 187 H 114 H Random Glucose Calcium Calcium Adj for Albumin Phosphorus Total Protein (PEP) Albumin Albumin (PEP) Albumin/Globulin Ratio Uyzsq-4-Mwfunxglm Squeh-6-Xgwuqhcpq Beta Globulins Gamma Globulins 06/11/18 06/11/18 06/11/18 00:29 03:58 08:13 Sodium 153 H Potassium 4.4 Chloride 128 H Carbon Dioxide 18.4 L Anion Gap 7 BUN 73 H Creatinine 2.91 H Estimated GFR 22 L POC Glucose 191 H 191 H Random Glucose 197 H Calcium 7.2 L* Calcium Adj for Albumin 9.0 Phosphorus Total Protein (PEP) Albumin 1.8 L Albumin (PEP) Albumin/Globulin Ratio Qrgjk-9-Jarbsuxpp Svsat-8-Paywipnix Beta Globulins Gamma Globulins Imaging: ITS Impressions Abdomen/Bladder Ultrasound 06/03/18 00:00 CONCLUSION: 1. Bilateral simple cysts within the kidneys as above. 2. No findings to indicate renal obstruction. 3. Renal cortex appears of adequate thickness. Abdomen/Pelvis CT 06/04/18 00:00 CONCLUSION: 1. The second and third portions of the duodenum appear mildly prominent and indistinct with mild surrounding inflammatory change extending into the adjacent mesentery. The findings are concerning for duodenitis. 2. Bilateral renal cysts. 3. Minimal pleural effusions and atelectasis in the lung bases. 4. The gallbladder is unremarkable. Head MRI 06/04/18 00:00 CONCLUSION: 1. There is a focal stable area of subacute hemorrhage adjacent to the posterior right midbrain measuring approximately 1.5 cm in length. This is not significantly changed in its overall appearance compared to the recent CT scan of the brain. No definite new areas of hemorrhage are demonstrated. 2. Stable diffuse bilateral cortical atrophy. Head MRA 06/04/18 00:00 CONCLUSION: 1. Atherosclerotic changes involving the left M2 segment. 2. No aneurysm or vascular abnormality identified. 3. Visualization of the known blood products along the right side of the brainstem. Neck MRA 06/04/18 00:00 CONCLUSION: 1. Unremarkable MRA of the carotids. Percent stenosis is calculated using the diameter of the stenotic region over the diameter of the normal distal internal carotid artery Abdomen X-Ray 06/05/18 00:00 CONCLUSION: Feeding tube distal tip is in the gastric body. Knee X-Ray 06/06/18 00:00 CONCLUSION: 1. Moderate suprapatellar effusion. 2. Prominent degenerative osteoarthritis. Head CT 06/08/18 00:00 CONCLUSION: 1. Resolving subarachnoid hemorrhage. No acute hemorrhage is identified. . Knee MRI 06/08/18 07:08 CONCLUSION: 1. Nonspecific joint effusion and moderate severity synovitis. Also nonspecific subcutaneous edema. Nothing organized or drainable. 2. Medial compartment predominant osteoarthritis. 3. Tears of the medial and lateral menisci as above. Cervical Spine MRI 06/08/18 07:09 CONCLUSION: 1. Increased signal anterior to the C6-C7 disc level and between the prominent anterior marginal osteophytes. The anterior longitudinal ligament is not seen. This could be the sequela of an injury in this region. The remaining aspect of the disc is intact. The vertebral bodies demonstrate normal signal. Prevertebral soft tissue swelling is not seen. This could be chronic. Fluid resembling a pseudarthrosis can also develop between osteophytes potentially. The remaining soft tissues appear intact. 2. Mild left lateral recess disc protrusion at the C2-C3 level. 3. Mild central disc protrusion at the C3-C4 level. 4. Mild disc bulge at the C5-C6 level and minimal disc bulge at the C4-C5 level. 5. Scattered neural foraminal narrowing as described above. Lumbar Spine MRI 06/08/18 07:09 CONCLUSION: 1. Severe stenosis at the L4-L5 level. 2. Moderate stenosis at the L2-L3 level. 3. Minimal disc bulge at the L1-L2 level with a small inferiorly directed extruded disc fragment at the right side. Significant stenosis is not seen at this level. 4. No focal fluid collection is identified. Thoracic Spine MRI 06/08/18 07:09 CONCLUSION: 1. Limited, noncontrast examination with no evidence of abscess. 2. Small posterior central protrusion at T5-6 with mild flattening of the anterior cord. 3. Posterior disc bulge at T6-7 with mild flattening of the anterior thecal sac. Chest X-Ray 06/08/18 11:16 CONCLUSION: A port is not seen. No acute cardiopulmonary process. Physical Exam: GENERAL: Sedated on the vent, not in respiratory distress. SKIN: Warm and dry. No generalized rash, no ecchymoses and no evidence of embolic lesions. HEAD: Atraumatic. Normocephalic. No temporal wasting, or tenderness. EYES: [place] conjunctiva. No petechia or hemorrhage. Pupils equal, round and reactive to light. No scleral icterus. No injection or drainage. EARS, NOSE AND THROAT: Nose without bleeding or purulent nasal discharge. Orally intubated NECK: Trachea midline. Supple and not tender, no meningeal signs CARDIOVASCULAR: Regular rate and rhythm. No murmurs, rubs or gallops heard RESPIRATORY: Clear to auscultation. Breath sounds equal bilaterally. No rales , wheezing or rhonchi ABDOMEN: Soft, obese, globular, distended bowel sounds present and normoactive. EXTREMITIES: No clubbing, cyanosis, or edema. No calf tenderness. Seems to have edis knee effusion NEUROLOGICAL: Sedated. PSYCHIATRIC: Unable to assess. LINE: No evidence of infection : [place] in place, urine better Assessment and Plan - Plan Impression MRSA sepsis on presentation, worrisome for IE - LAURIE negative - MRSA not a common pathogen - so far no obvious source for the MRSA, and very likely endovascular - BC still (+) - Has septic L knee UTI - first UC with MRSA; now with E coli ESBL Septic L knee, MRSA Hemorrhage posterior fossa - no aneurysm: MRA negative for mycotic aneurism Hx DM, HTN, Obesity Renal insufficiency, improving Fevers, better Respiratory failure - CXR clear Recommendation Repeat blood culture to document clearing Continue Cubicin at least to help and hope for quicker sterilization of blood Continue INvanz Follow C/S Monitor progress Follow temps OR to L knee today D/W MATEO
--- NOTE | 2018-06-11 10:58 | P.PNCA ---
Subjective Interval history: intubated, sedated Medications and Allergies Active Medications: Active Medications Acetaminophen (Tylenol) 650 mg PO Q6H PRN PRN Reason: PAIN 1-10 AND/OR FEVER >101F Last Admin: 06/06/18 12:05 Dose: 650 mg Al Hydroxide/Mg Hydroxide (Milk Of Magnfernando Liq) 30 ml PO Q12H PRN PRN Reason: Mild Constipation Albuterol (Duoneb Neb (Prn)) 1 ampul NEB Q2HR NEB PRN PRN Reason: WHEEZING Last Admin: 06/03/18 19:44 Dose: 1 ampul Albuterol (Duoneb Neb (Leidy)) 1 ampul NEB Q6HR NEB [facility] Last Admin: 06/11/18 09:08 Dose: 1 ampul Bisacodyl (Dulcolax Supp) 10 mg RECTAL DAILY PRN PRN Reason: SEVERE CONSITIPATION Chlorhexidine Gluconate (Peridex 0.12% Oral Kit) 15 ml OROPHARYNG BID@0800, 2000 [facility] Last Admin: 06/11/18 09:49 Dose: 15 ml Clonidine HCl (Catapres) 0.1 mg PO Q6H PRN PRN Reason: SBP>160, DBP>90 Dextrose (D50w Vial) 50 ml IV.PUSH UNSCH PRN PRN Reason: PER HYPOGLYCEMIA PROTOCOL Famotidine (Pepcid Pf Inj) 20 mg IV.PUSH Q12HR [facility] Last Admin: 06/11/18 09:49 Dose: 20 mg Glucagon (Glucagon Inj) 1 mg OTHER PRN PRN PRN Reason: for Hypoglycemia Protocol Heparin Sodium (Porcine) (Heparin Inj) 5,000 units SQ Q12HR [facility] Last Admin: 06/11/18 10:01 Dose: Not Given Levetiracetam 500 mg/ Sodium (Chloride) 105 mls @ 400 mls/hr IV.SIG Q12H [facility] Last Infusion: 06/11/18 04:48 Dose: Infused Sodium Phosphate 30 mmol/ (Sodium Chloride) 260 mls @ 42 mls/hr IV.SIG UNSCH PRN PRN Reason: For Phosphorus < 2.5 mg/dL Dexmedetomidine HCl 200 mcg/ (Sodium Chloride) 50 mls @ 6.65 mls/hr IV.CONT TITRATE PRN; Protocol PRN Reason: Per Protocol Last Titration: 06/10/18 16:42 Dose: Infused Propofol (Diprivan 1000 Mg/100 Ml Inj) 1,000 mg in 100 mls @ 3.972 mls/hr IV.CONT TITRATE PRN; Protocol PRN Reason: Per Protocol Last Admin: 06/11/18 00:52 Dose: 10 mcg/kg/min, 7.94 mls/hr Norepinephrine Bitartrate (Levophed-Dextrose 4 Mg/250 Ml Drip) 4 mg in 250 mls @ 7.5 mls/hr IV.SIG TITRATE PRN; Protocol PRN Reason: Per Protocol Sodium Chloride (1/2 Normal Saline Inj) 1,000 mls @ 125 mls/hr IV.CONT .Q8H [facility] Last Admin: 06/11/18 04:48 Dose: 125 mls/hr Daptomycin 800 mg/ Sodium (Chloride) 100 mls @ 200 mls/hr IV.SIG Q48H [facility] Last Infusion: 06/10/18 17:10 Dose: Infused Ertapenem 500 mg/ Sodium (Chloride) 100 mls @ 200 mls/hr IV.SIG Q24H [facility] Last Infusion: 06/10/18 17:10 Dose: Infused Insulin Human Regular (Novolin R Correctional Sugar Inj) 0 units SQ Q4HR [facility]; Protocol Last Admin: 06/11/18 10:03 Dose: 1 units Labetalol HCl (Trandate Inj) 10 mg IV.PUSH Q2H PRN PRN Reason: BP > 140/90 Last Admin: 06/09/18 16:36 Dose: 10 mg Lactulose (Lactulose Liq) 30 ml PO DAILY PRN PRN Reason: SEVERE CONSITIPATION Miscellaneous Medication () 1 each OROPHARYNG 0000,0400,1200,1600 [facility] Last Admin: 06/11/18 03:52 Dose: 1 each Miscellaneous Medication (Asp Crit: Doc Esbl, Mdr A Baumannii Or P Aer) 1 each OTHER UNSCH PRN PRN Reason: PHARMACY DOCUMENTATION Stop: 06/11/18 13:01 Senna/Docusate Sodium (Shasha-Colace) 1 tab PO BID [facility] Last Admin: 06/11/18 10:02 Dose: Not Given Sennosides (Senokot) 17.2 mg PO Q12H PRN PRN Reason: Moderate Constipation Sodium Chloride (Ns Flush) 2 ml IV.FLUSH BID [facility] Last Admin: 06/11/18 10:01 Dose: 2 ml Sodium Chloride (Ns Flush) 2 ml IV.FLUSH PRN PRN PRN Reason: FLUSH AFTER USING IV ACCESS Sterile Water (Free Water) 250 ml G-TUBE Q8HR [facility] Last Admin: 06/11/18 05:43 Dose: 250 ml Terbutaline Sulfate (Brethine Inj) 1 mg SQ UNSCH PRN PRN Reason: For Extravasation Allergies Allergy/AdvReac Type Severity Reaction Status Date / Time No Known Allergies Allergy Verified 06/03/18 01:32 Physical Exam Vital signs: Vital Signs 06/10/18 11:00 06/10/18 11:30 06/10/18 12:00 Temperature 98.8 F Pulse Rate 70 69 75 Respiratory Rate 28 H 32 H 28 H Blood Pressure 125/57 L 123/58 L 126/58 L Pulse Oximetry 100 100 100 06/10/18 12:03 06/10/18 12:30 06/10/18 13:00 Temperature Pulse Rate 71 77 Respiratory Rate 27 H 27 H 28 H Blood Pressure 128/60 135/63 Pulse Oximetry 100 100 100 06/10/18 13:30 06/10/18 13:46 06/10/18 13:51 Temperature Pulse Rate 73 87 Respiratory Rate 28 H 26 H Blood Pressure 130/59 L 143/62 H Pulse Oximetry 100 100 100 06/10/18 14:00 06/10/18 14:30 06/10/18 14:52 Temperature Pulse Rate 69 72 74 Respiratory Rate 27 H 26 H 27 H Blood Pressure 119/58 L 124/58 L Pulse Oximetry 100 100 100 06/10/18 15:00 06/10/18 15:30 06/10/18 16:00 Temperature Pulse Rate 71 74 71 Respiratory Rate 31 H 27 H 34 H Blood Pressure 129/63 132/61 130/61 Pulse Oximetry 100 100 100 06/10/18 16:30 06/10/18 17:00 06/10/18 17:30 Temperature Pulse Rate 70 74 74 Respiratory Rate 28 H 26 H 26 H Blood Pressure 127/59 L 131/61 133/60 Pulse Oximetry 100 100 100 06/10/18 18:00 06/10/18 18:30 06/10/18 19:00 Temperature Pulse Rate 68 66 67 Respiratory Rate 25 H 25 H 25 H Blood Pressure 125/60 125/60 128/60 Pulse Oximetry 100 100 100 06/10/18 19:30 06/10/18 20:00 06/10/18 20:12 Temperature 98.9 F Pulse Rate 71 72 Respiratory Rate 24 25 H 25 H Blood Pressure 123/57 L 130/62 Pulse Oximetry 100 100 100 06/10/18 20:14 06/10/18 20:30 06/10/18 21:00 Temperature Pulse Rate 70 75 76 Respiratory Rate 25 H 25 H 32 H Blood Pressure 131/59 L 116/59 L Pulse Oximetry 100 100 06/10/18 21:30 06/10/18 22:00 06/10/18 22:30 Temperature Pulse Rate 70 69 66 Respiratory Rate 25 H 23 22 Blood Pressure 121/60 117/58 L 123/60 Pulse Oximetry 100 100 100 06/10/18 23:00 06/10/18 23:20 06/10/18 23:30 Temperature Pulse Rate 79 81 Respiratory Rate 24 25 H 26 H Blood Pressure 125/61 133/62 Pulse Oximetry 100 100 100 06/11/18 00:00 06/11/18 00:30 06/11/18 01:00 Temperature 98.6 F Pulse Rate 86 76 75 Respiratory Rate 25 H 26 H 29 H Blood Pressure 138/65 135/61 135/63 Pulse Oximetry 100 100 100 06/11/18 01:30 06/11/18 02:00 06/11/18 02:30 Temperature Pulse Rate 83 83 81 Respiratory Rate 26 H 26 H 25 H Blood Pressure 136/63 140/63 143/65 H Pulse Oximetry 100 100 100 06/11/18 03:00 06/11/18 03:30 06/11/18 04:00 Temperature 98.9 F Pulse Rate 80 72 84 Respiratory Rate 26 H 34 H 26 H Blood Pressure 129/60 129/60 168/68 H Pulse Oximetry 100 100 100 06/11/18 04:30 06/11/18 05:00 06/11/18 05:30 Temperature Pulse Rate 90 76 81 Respiratory Rate 30 H 29 H 26 H Blood Pressure 164/79 H 141/67 H 141/65 H Pulse Oximetry 100 100 100 06/11/18 06:00 06/11/18 06:30 06/11/18 07:00 Temperature Pulse Rate 84 88 84 Respiratory Rate 28 H 29 H 25 H Blood Pressure 155/72 H 163/72 H 150/69 H Pulse Oximetry 100 100 100 06/11/18 07:30 06/11/18 07:34 06/11/18 08:00 Temperature 98.1 F Pulse Rate 81 81 Respiratory Rate 25 H 25 H 23 Blood Pressure 144/63 H 140/63 Pulse Oximetry 100 100 100 06/11/18 09:11 Temperature Pulse Rate 83 Respiratory Rate 25 H Blood Pressure Pulse Oximetry Intake & Output 06/10/18 06/11/18 06/11/18 18:59 06:59 18:59 Intake Total 1645 / 1645 2855 / 2855 Output Total 1300 / 1300 1250 / 1250 475 / 475 Balance 345 / 345 1605 / 1605 -475 / -475 Weight 140.7 kg Intake: IV 1645 / 1645 2140 / 2140 Precedex Inj 200 MCG In NS Inj 35 / 35 48 ML @ 0.2 MCG/KG/HR 6.65 mls/ hr IV.CONT TITRATE PRN Rx#: [id number] Diprivan 1000 mg/100 ml Inj 1, 100 / 100 100 / 100 000 mg In 100 ml @ 5 MCG/KG/MIN 3.972 mls/hr IV.CONT TITRATE PRN Rx#:[id number] 1/2 Normal Saline Inj 1,000 ML 1000 / 1000 1935 / 1935 @ 125 mls/hr IV.CONT .Q8H [facility] Rx#:[id number] Maxipime Inj 1,000 MG In NS Inj 100 / 100 100 ML @ 200 mls/hr IV.SIG Q12H [facility] Rx#:[id number] Cubicin Inj 800 MG In NS Inj 100 / 100 100 ML @ 200 mls/hr IV.SIG Q48H [facility] Rx#:[id number] INVanz Inj 500 MG In NS Inj 100 100 / 100 ML @ 200 mls/hr IV.SIG Q24H [facility] Rx#:[id number] Keppra Inj 500 MG In NS Inj 100 210 / 210 105 / 105 ML @ 400 mls/hr IV.SIG Q12H [facility] Rx#:[id number] Tube Feeding 215 / 215 Water Bolus Amount 500 / 500 Output: Urine Amount (Catheter) 1300 / 1300 1250 / 1250 475 / 475 Indwelling Urethral Catheter 1300 / 1300 1250 / 1250 475 / 475 Other: Date of Last Bowel Movement 06/02/18 06/02/18 - Constitutional no acute distress - Routine HEENT Exam Head: Present: normocephalic - Routine Neck Exam Present: supple - Routine Respiratory Exam Present: CTA bilaterally - Routine Cardiovascular Exam Present: S1, S2 - Routine Abdominal Exam Present: soft - Routine Extremities Exam Comments: no sourav - Urinary Catheter Management Indwelling Urethral Catheter Cath placed during this visit: yes Reason for continuing: Hourly intake/output Insertion date: 06/03/18 Insertion time: 03:00 Results 06/11/18 08:13 06/11/18 08:13 CBC 06/10/18 06/11/18 Range/Units 06:20 08:13 WBC 15.6 H 11.3 H (4.0-11.0) th/mm3 RBC 3.36 L 3.22 L (4.50-5.90) mil/mm3 Hgb 9.9 L 9.4 L (13.0-17.0) gm/dL Hct 30.7 L 29.7 L (39.0-51.0) % Plt Count 193 158 (150-450) th/mm3 Neut # (Auto) 12.9 H 9.6 H (1.8-7.7) th/mm3 Lymph # (Auto) 1.3 0.8 L (1.0-4.8) th/mm3 Bell # (Auto) 0.8 0.6 (0.0-0.9) th/mm3 Eos # (Auto) 0.4 0.2 (0.0-0.4) th/mm3 Baso # (Auto) 0.1 0.1 (0.0-0.2) th/mm3 Comprehensive Metabolic Panel 06/10/18 06/11/18 Range/Units 06:20 08:13 Sodium 156 H* 153 H (136-145) meq/L Potassium 4.5 4.4 (3.5-5.1) meq/L Chloride 128 H 128 H (98-107) meq/L Carbon Dioxide 20.2 L 18.4 L (21.0-32.0) meq/L BUN 80 H 73 H (7-18) mg/dL Creatinine 3.37 H 2.91 H (0.60-1.30) mg/dL Calcium 7.3 L* 7.2 L* (8.5-10.1) mg/dL Albumin 1.9 L 1.8 L (3.4-5.0) g/dL Intake and Output 06/10/18 06/11/18 06/11/18 22:59 06:59 14:59 Intake Total 1310 / 1310 1885 / 1885 Output Total 1300 / 1300 1250 / 1250 475 / 475 Balance 635 / 635 -475 / -475 Intake: IV 1310 / 1310 1170 / 1170 Precedex Inj 200 MCG In NS Inj 35 / 35 48 ML @ 0.2 MCG/KG/HR 6.65 mls/ hr IV.CONT TITRATE PRN Rx#: [id number] Diprivan 1000 mg/100 ml Inj 1, 100 / 100 000 mg In 100 ml @ 5 MCG/KG/MIN 3.972 mls/hr IV.CONT TITRATE PRN Rx#:[id number] 1/2 Normal Saline Inj 1,000 ML 970 / 970 965 / 965 @ 125 mls/hr IV.CONT .Q8H LE[facility] Rx#:[id number] Cubicin Inj 800 MG In NS Inj 100 / 100 100 ML @ 200 mls/hr IV.SIG Q48H [facility] Rx#:[id number] INVanz Inj 500 MG In NS Inj 100 100 / 100 ML @ 200 mls/hr IV.SIG Q24H [facility] Rx#:[id number] Keppra Inj 500 MG In NS Inj 100 105 / 105 105 / 105 ML @ 400 mls/hr IV.SIG Q12H [facility] Rx#:[id number] Tube Feeding 215 / 215 Water Bolus Amount 500 / 500 Output: Urine Amount (Catheter) 1300 / 1300 1250 / 1250 475 / 475 Indwelling Urethral Catheter 1300 / 1300 1250 / 1250 475 / 475 Other: Date of Last Bowel Movement 06/02/18 06/02/18 Weight 140.7 kg 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 Status: Acute (4) Encephalopathy acute Code(s): G93.40 - Encephalopathy, unspecified Status: Acute (5) Acute kidney failure Code(s): N17.9 - Acute kidney failure, unspecified Status: Acute (6) Diabetes Code(s): E11.9 - Type 2 diabetes mellitus without complications Status: Chronic (7) Hypertension Code(s): I10 - Essential (primary) hypertension Status: Chronic (8) Obesity Code(s): E66.9 - Obesity, unspecified Status: Chronic (9) Severe sepsis Code(s): A41.9 - Sepsis, unspecified organism; R65.20 - Severe sepsis without septic shock Status: Acute - Plan 1.) Bacteremia - mohsen 06/10/18 with small 2 mm linear opacity @ mv subvalvular apparatus of indeterminate significance, d/w nurse at the bedside, will sign off (3) Brain stem hemorrhage Qualifiers: Intracerebral hemorrhage etiology: nontraumatic
--- NOTE | 2018-06-11 11:40 | P.PNNP ---
Subjective Interval history: Remains intubated and on sedation. Plans for OR to left knee. Creatinine has improved at 2.91 today from 3.37. <Azul Lam - Last Filed: 06/11/18 11:31> Physical Exam Vital signs: Vital Signs 06/10/18 12:00 06/10/18 12:03 06/10/18 12:30 Temperature 98.8 F Pulse Rate 75 71 Respiratory Rate 28 H 27 H 27 H Blood Pressure 126/58 L 128/60 Pulse Oximetry 100 100 100 06/10/18 13:00 06/10/18 13:30 06/10/18 13:46 Temperature Pulse Rate 77 73 87 Respiratory Rate 28 H 28 H 26 H Blood Pressure 135/63 130/59 L 143/62 H Pulse Oximetry 100 100 100 06/10/18 13:51 06/10/18 14:00 06/10/18 14:30 Temperature Pulse Rate 69 72 Respiratory Rate 27 H 26 H Blood Pressure 119/58 L 124/58 L Pulse Oximetry 100 100 100 06/10/18 14:52 06/10/18 15:00 06/10/18 15:30 Temperature Pulse Rate 74 71 74 Respiratory Rate 27 H 31 H 27 H Blood Pressure 129/63 132/61 Pulse Oximetry 100 100 100 06/10/18 16:00 06/10/18 16:30 06/10/18 17:00 Temperature Pulse Rate 71 70 74 Respiratory Rate 34 H 28 H 26 H Blood Pressure 130/61 127/59 L 131/61 Pulse Oximetry 100 100 100 06/10/18 17:30 06/10/18 18:00 06/10/18 18:30 Temperature Pulse Rate 74 68 66 Respiratory Rate 26 H 25 H 25 H Blood Pressure 133/60 125/60 125/60 Pulse Oximetry 100 100 100 06/10/18 19:00 06/10/18 19:30 06/10/18 20:00 Temperature 98.9 F Pulse Rate 67 71 72 Respiratory Rate 25 H 24 25 H Blood Pressure 128/60 123/57 L 130/62 Pulse Oximetry 100 100 100 06/10/18 20:12 06/10/18 20:14 06/10/18 20:30 Temperature Pulse Rate 70 75 Respiratory Rate 25 H 25 H 25 H Blood Pressure 131/59 L Pulse Oximetry 100 100 06/10/18 21:00 06/10/18 21:30 06/10/18 22:00 Temperature Pulse Rate 76 70 69 Respiratory Rate 32 H 25 H 23 Blood Pressure 116/59 L 121/60 117/58 L Pulse Oximetry 100 100 100 06/10/18 22:30 06/10/18 23:00 06/10/18 23:20 Temperature Pulse Rate 66 79 Respiratory Rate 22 24 25 H Blood Pressure 123/60 125/61 Pulse Oximetry 100 100 100 06/10/18 23:30 06/11/18 00:00 06/11/18 00:30 Temperature 98.6 F Pulse Rate 81 86 76 Respiratory Rate 26 H 25 H 26 H Blood Pressure 133/62 138/65 135/61 Pulse Oximetry 100 100 100 06/11/18 01:00 06/11/18 01:30 06/11/18 02:00 Temperature Pulse Rate 75 83 83 Respiratory Rate 29 H 26 H 26 H Blood Pressure 135/63 136/63 140/63 Pulse Oximetry 100 100 100 06/11/18 02:30 06/11/18 03:00 06/11/18 03:30 Temperature Pulse Rate 81 80 72 Respiratory Rate 25 H 26 H 34 H Blood Pressure 143/65 H 129/60 129/60 Pulse Oximetry 100 100 100 06/11/18 04:00 06/11/18 04:30 06/11/18 05:00 Temperature 98.9 F Pulse Rate 84 90 76 Respiratory Rate 26 H 30 H 29 H Blood Pressure 168/68 H 164/79 H 141/67 H Pulse Oximetry 100 100 100 06/11/18 05:30 06/11/18 06:00 06/11/18 06:30 Temperature Pulse Rate 81 84 88 Respiratory Rate 26 H 28 H 29 H Blood Pressure 141/65 H 155/72 H 163/72 H Pulse Oximetry 100 100 100 06/11/18 07:00 06/11/18 07:30 06/11/18 07:34 Temperature Pulse Rate 84 81 Respiratory Rate 25 H 25 H 25 H Blood Pressure 150/69 H 144/63 H Pulse Oximetry 100 100 100 06/11/18 08:00 06/11/18 09:00 06/11/18 09:11 Temperature 98.1 F Pulse Rate 81 71 83 Respiratory Rate 23 26 H 25 H Blood Pressure 140/63 129/61 Pulse Oximetry 100 100 06/11/18 10:00 06/11/18 11:00 06/11/18 11:25 Temperature Pulse Rate 97 H 89 Respiratory Rate 25 H 25 H 25 H Blood Pressure 163/73 H 136/62 Pulse Oximetry 100 100 100 Intake & Output 06/10/18 06/11/18 06/11/18 18:59 06:59 18:59 Intake Total 1645 / 1645 2855 / 2855 Output Total 1300 / 1300 1250 / 1250 475 / 475 Balance 345 / 345 1605 / 1605 -475 / -475 Weight 140.7 kg Intake: IV 1645 / 1645 2140 / 2140 Precedex Inj 200 MCG In NS Inj 35 / 35 48 ML @ 0.2 MCG/KG/HR 6.65 mls/ hr IV.CONT TITRATE PRN Rx#: [id number] Diprivan 1000 mg/100 ml Inj 1, 100 / 100 100 / 100 000 mg In 100 ml @ 5 MCG/KG/MIN 3.972 mls/hr IV.CONT TITRATE PRN Rx#:[id number] 1/2 Normal Saline Inj 1,000 ML 1000 / 1000 1935 / 1935 @ 125 mls/hr IV.CONT .Q8H [facility] Rx#:[id number] Maxipime Inj 1,000 MG In NS Inj 100 / 100 100 ML @ 200 mls/hr IV.SIG Q12H [facility] Rx#:[id number] Cubicin Inj 800 MG In NS Inj 100 / 100 100 ML @ 200 mls/hr IV.SIG Q48H [facility] Rx#:[id number] INVanz Inj 500 MG In NS Inj 100 100 / 100 ML @ 200 mls/hr IV.SIG Q24H [facility] Rx#:[id number] Keppra Inj 500 MG In NS Inj 100 210 / 210 105 / 105 ML @ 400 mls/hr IV.SIG Q12H [facility] Rx#:[id number] Tube Feeding 215 / 215 Water Bolus Amount 500 / 500 Output: Urine Amount (Catheter) 1300 / 1300 1250 / 1250 475 / 475 Indwelling Urethral Catheter 1300 / 1300 1250 / 1250 475 / 475 Other: Date of Last Bowel Movement 06/02/18 06/02/18 Narrative: GENERAL: Orally intubated on sedation. SKIN: Warm and dry. NECK: Supple, trachea midline. No JVD. CARDIOVASCULAR: Regular rate and rhythm without murmurs, gallops, or rubs. RESPIRATORY: Breath sounds equal bilaterally. No accessory muscle use. Rhonchi. GASTROINTESTINAL: Abdomen soft, non-tender, nondistended. right nare Dobhoff MUSCULOSKELETAL: No cyanosis, generalized edema - Urinary Catheter Management Indwelling Urethral Catheter Cath placed during this visit: yes Reason for continuing: Hourly intake/output Insertion date: 06/03/18 Insertion time: 03:00 <Azul Lam - Last Filed: 06/11/18 11:31> Vital signs: Vital Signs 06/15/18 16:04 06/15/18 16:07 06/15/18 17:10 Temperature Pulse Rate 93 H 72 Respiratory Rate Blood Pressure 166/72 H 136/61 Pulse Oximetry 100 97 98 06/15/18 18:00 06/15/18 18:10 06/15/18 19:00 Temperature 100.2 F H 100.6 F H Pulse Rate 78 81 Respiratory Rate 23 Blood Pressure 144/67 H Pulse Oximetry 99 100 06/15/18 19:10 06/15/18 19:52 06/15/18 20:00 Temperature 100.4 F H 100.6 F H Pulse Rate 87 92 H Respiratory Rate 24 21 Blood Pressure 156/71 H Pulse Oximetry 99 100 99 06/15/18 20:10 06/15/18 21:00 06/15/18 21:10 Temperature 100.6 F H 100.6 F H 100.8 F H Pulse Rate 93 H 79 78 Respiratory Rate 20 20 24 Blood Pressure 155/70 H 141/65 H Pulse Oximetry 98 100 100 06/15/18 22:00 06/15/18 22:10 06/15/18 23:00 Temperature 100.6 F H 100.6 F H Pulse Rate 76 77 91 H Respiratory Rate 22 26 H 23 Blood Pressure 141/63 H Pulse Oximetry 100 100 95 06/15/18 23:10 06/15/18 23:30 06/16/18 00:00 Temperature 100.9 F H Pulse Rate 97 H 77 Respiratory Rate 22 27 H 21 Blood Pressure 153/89 H Pulse Oximetry 100 99 99 06/16/18 00:10 06/16/18 01:00 06/16/18 01:10 Temperature 100.9 F H 100.9 F H Pulse Rate 75 78 87 Respiratory Rate 22 24 26 H Blood Pressure 143/65 H 149/77 H Pulse Oximetry 99 99 99 06/16/18 02:00 06/16/18 02:10 06/16/18 02:59 Temperature 101.3 F H 101.3 F H Pulse Rate 75 74 Respiratory Rate 18 21 Blood Pressure 129/64 129/61 Pulse Oximetry 94 L 99 06/16/18 03:00 06/16/18 03:10 06/16/18 03:28 Temperature 100.6 F H 100.4 F H Pulse Rate 77 75 Respiratory Rate 22 24 26 H Blood Pressure 136/65 Pulse Oximetry 95 100 96 06/16/18 04:00 06/16/18 04:12 06/16/18 04:13 Temperature 99.9 F H 99.9 F H 99.9 F H Pulse Rate 76 87 87 Respiratory Rate 22 23 25 H Blood Pressure 167/76 H 157/70 H Pulse Oximetry 99 100 100 06/16/18 05:00 06/16/18 05:12 06/16/18 06:00 Temperature 99.5 F 99.5 F 99.7 F H Pulse Rate 87 85 87 Respiratory Rate 26 H 24 Blood Pressure 150/66 H Pulse Oximetry 99 94 L 99 06/16/18 06:09 06/16/18 07:00 06/16/18 07:15 Temperature 99.7 F H 100.0 F H 100.0 F H Pulse Rate 90 72 73 Respiratory Rate 21 Blood Pressure 159/71 H 123/58 L 130/63 Pulse Oximetry 99 100 100 06/16/18 07:30 06/16/18 07:45 06/16/18 08:00 Temperature 98.2 F 100.0 F H 100.2 F H Pulse Rate 61 84 77 Respiratory Rate Blood Pressure 133/62 142/70 H 142/73 H Pulse Oximetry 100 100 100 06/16/18 08:15 06/16/18 08:25 06/16/18 08:30 Temperature 100.2 F H 100.2 F H Pulse Rate 62 78 Respiratory Rate Blood Pressure 132/61 157/71 H Pulse Oximetry 100 100 100 06/16/18 08:45 06/16/18 09:00 06/16/18 09:15 Temperature 100.4 F H 100.4 F H 100.4 F H Pulse Rate 66 87 81 Respiratory Rate Blood Pressure 128/70 167/81 H 137/66 Pulse Oximetry 100 100 100 06/16/18 09:30 06/16/18 09:45 06/16/18 10:00 Temperature 100.8 F H 100.8 F H 100.9 F H Pulse Rate 77 66 68 Respiratory Rate Blood Pressure 160/64 H 156/71 H 133/61 Pulse Oximetry 100 100 100 06/16/18 10:15 06/16/18 10:30 06/16/18 10:45 Temperature 100.9 F H 100.8 F H 100.6 F H Pulse Rate 68 67 64 Respiratory Rate Blood Pressure 134/55 L 124/60 130/61 Pulse Oximetry 100 100 100 06/16/18 11:00 06/16/18 11:13 06/16/18 12:00 Temperature 100.4 F H 100.0 F H 99.9 F H Pulse Rate 90 70 64 Respiratory Rate Blood Pressure 113/56 L 117/59 L Pulse Oximetry 100 100 100 06/16/18 12:18 06/16/18 12:49 06/16/18 13:00 Temperature 99.7 F H 99.7 F H Pulse Rate 64 66 Respiratory Rate 15 Blood Pressure 123/58 L Pulse Oximetry 100 100 100 06/16/18 13:49 06/16/18 14:00 Temperature 99.9 F H 99.9 F H Pulse Rate 69 70 Respiratory Rate Blood Pressure 130/62 Pulse Oximetry 100 100 Intake & Output 06/15/18 06/16/18 06/16/18 18:59 06:59 18:59 Intake Total 3164.250 / 3164.250 1173 / 1173 1209.625 / 1209.625 Output Total 1645 / 1645 3000 / 3000 1800 / 1800 Balance 1519.250 / 1519.250 -1827 / -1827 -590.375 / -590.375 Weight 134.8 kg Intake: IV 2024.250 / 2024.250 105 / 105 1209.625 / 1209.625 Sodium Chloride 23.4% Inj 38.5 1719.250 / 0572.221 4715.625 / 1009.625 MEQ In Sterile Water for Inj 1, 000 ML @ 100 mls/hr IV.CONT . Q10H6M [facility] Rx#:[id number] Cubicin Inj 800 MG In NS Inj 100 / 100 100 / 100 100 ML @ 200 mls/hr IV.SIG Q24H [facility] Rx#:[id number] INVanz Inj 1,000 MG In NS Inj 100 / 100 100 / 100 100 ML @ 200 mls/hr IV.SIG Q24H [facility] Rx#:[id number] Keppra Inj 500 MG In NS Inj 100 105 / 105 105 / 105 ML @ 400 mls/hr IV.SIG Q12H [facility] Rx#:[id number] Tube Feeding 350 / 350 568 / 568 Tube Irrigant 540 / 540 Water Bolus Amount 250 / 250 500 / 500 Output: Urine Amount (Catheter) 1625 / 1625 3000 / 3000 1800 / 1800 Indwelling Urethral Catheter 1625 / 1625 3000 / 3000 1800 / 1800 Wound Drainage / 20 0 / 0 0 / 0 # 1 Left Knee Hemovac 0 / 0 0 / 0 Other: Date of Last Bowel Movement 06/14/18 06/15/18 06/16/18 # Bowel Movements 1 - Urinary Catheter Management Indwelling Urethral Catheter Cath placed during this visit: no <Aurelia Powell - Last Filed: 06/16/18 15:49> Assessment and Plan - Assessment (1) Acute kidney failure Code(s): N17.9 - Acute kidney failure, unspecified Status: Acute Plan: Acute kidney injury with creatinine of 3.50. HCO3 at 20.6. Non oliguric. On admission creatinine was noted to be 1.56 CT on abdomen with no acute findings. Bilateral renal cysts noted. Patient may have some chronic kidney disease but baseline creatinine is not known. Proteinuria noted in urine. Creatinine started to increase on the 4th at 2.86. NIKKI with FeNA at 2.35 suggestive of ATN possibly from sepsis or contrast nephropathy. AIN in differential also with vancomycin/gentamicin levels elevated on the 4th. SPEP and serology pending C3 mildly low, C4 normal. Creatinine has improved at 2.9 from 3.50, with good urinary output. Serology pending. Recommend to continue IVF as patient tolerates. Avoid nephrotoxins as possible. Will follow urinary output and labs. LAURIE planned for today. Labs in AM <Azul Lam - Last Filed: 06/11/18 11:31> - Assessment (1) Acute kidney failure Code(s): N17.9 - Acute kidney failure, unspecified Status: Acute Plan: Patient seen and examined, agree with above. Urine out put is good, Creatinine improve to 2.9. Continue IVF. <Aurelia Powell - Last Filed: 06/16/18 15:49>
[2018-06-11] MEDS: Ertapenem Inj 500 MG in Sodium Chlor 0.9% Inj 100 ML IV.SIG SCH (15:31)
--- NOTE | 2018-06-11 18:30 | P.PNNS ---
Subjective Interval history: 68-year-old male, brought into the hospital initially at [facility] for evaluation of weakness and slurred speech. It apparently has been present for several days. He was found on the floor of his mobile home. At [facility] he was found to be febrile, WBC up to 21,000, urinalysis with pyuria, creatinine 2.33, and lactic acid was elevated. CT of the head showed focal hemorrhage in the posterior fossa. Patient was transferred to [facility] for neurosurgical evaluation. Patient since admission has had elevated temperature. His blood cultures done on admission are now reported as growing gram-positive cocci, MRSA. His urine culture is also growing MRSA. He remains intubated and sedated. Not following commands. He remains septic. His CT of the brain has been stable. Scheduled for OR for left knee septic arthritis with Dr. Carlson today Physical Exam Vital signs: Vital Signs 06/10/18 19:00 06/10/18 19:30 06/10/18 20:00 Temperature 98.9 F Pulse Rate 67 71 72 Respiratory Rate 25 H 24 25 H Blood Pressure 128/60 123/57 L 130/62 Pulse Oximetry 100 100 100 06/10/18 20:12 06/10/18 20:14 06/10/18 20:30 Temperature Pulse Rate 70 75 Respiratory Rate 25 H 25 H 25 H Blood Pressure 131/59 L Pulse Oximetry 100 100 06/10/18 21:00 06/10/18 21:30 06/10/18 22:00 Temperature Pulse Rate 76 70 69 Respiratory Rate 32 H 25 H 23 Blood Pressure 116/59 L 121/60 117/58 L Pulse Oximetry 100 100 100 06/10/18 22:30 06/10/18 23:00 06/10/18 23:20 Temperature Pulse Rate 66 79 Respiratory Rate 22 24 25 H Blood Pressure 123/60 125/61 Pulse Oximetry 100 100 100 06/10/18 23:30 06/11/18 00:00 06/11/18 00:30 Temperature 98.6 F Pulse Rate 81 86 76 Respiratory Rate 26 H 25 H 26 H Blood Pressure 133/62 138/65 135/61 Pulse Oximetry 100 100 100 06/11/18 01:00 06/11/18 01:30 06/11/18 02:00 Temperature Pulse Rate 75 83 83 Respiratory Rate 29 H 26 H 26 H Blood Pressure 135/63 136/63 140/63 Pulse Oximetry 100 100 100 06/11/18 02:30 06/11/18 03:00 06/11/18 03:30 Temperature Pulse Rate 81 80 72 Respiratory Rate 25 H 26 H 34 H Blood Pressure 143/65 H 129/60 129/60 Pulse Oximetry 100 100 100 06/11/18 04:00 06/11/18 04:30 06/11/18 05:00 Temperature 98.9 F Pulse Rate 84 90 76 Respiratory Rate 26 H 30 H 29 H Blood Pressure 168/68 H 164/79 H 141/67 H Pulse Oximetry 100 100 100 06/11/18 05:30 06/11/18 06:00 06/11/18 06:30 Temperature Pulse Rate 81 84 88 Respiratory Rate 26 H 28 H 29 H Blood Pressure 141/65 H 155/72 H 163/72 H Pulse Oximetry 100 100 100 06/11/18 07:00 06/11/18 07:30 06/11/18 07:34 Temperature Pulse Rate 84 81 Respiratory Rate 25 H 25 H 25 H Blood Pressure 150/69 H 144/63 H Pulse Oximetry 100 100 100 06/11/18 08:00 06/11/18 09:00 06/11/18 09:11 Temperature 98.1 F Pulse Rate 71 71 83 Respiratory Rate 23 26 H 25 H Blood Pressure 140/63 129/61 Pulse Oximetry 100 100 06/11/18 10:00 06/11/18 11:00 06/11/18 11:25 Temperature Pulse Rate 83 89 Respiratory Rate 25 H 25 H 25 H Blood Pressure 163/73 H 136/62 Pulse Oximetry 100 100 100 06/11/18 12:00 06/11/18 13:00 06/11/18 14:00 Temperature 98.0 F Pulse Rate 85 82 76 Respiratory Rate 27 H 25 H 25 H Blood Pressure 125/60 143/66 H 141/63 H Pulse Oximetry 99 100 100 06/11/18 15:00 06/11/18 15:18 06/11/18 16:00 Temperature 98.7 F Pulse Rate 87 84 78 Respiratory Rate 27 H 25 H 25 H Blood Pressure 147/67 H 136/63 Pulse Oximetry 100 100 100 06/11/18 17:00 Temperature Pulse Rate 83 Respiratory Rate 24 Blood Pressure 132/60 Pulse Oximetry 100 Intake & Output 06/10/18 06/11/18 06/11/18 18:59 06:59 18:59 Intake Total 1645 / 1645 2855 / 2855 1305 / 1305 Output Total 1300 / 1300 1250 / 1250 475 / 475 Balance 345 / 345 1605 / 1605 830 / 830 Weight 140.7 kg Intake: IV 1645 / 1645 2140 / 2140 1305 / 1305 Precedex Inj 200 MCG In NS Inj 35 / 35 48 ML @ 0.2 MCG/KG/HR 6.65 mls/ hr IV.CONT TITRATE PRN Rx#: [id number] Diprivan 1000 mg/100 ml Inj 1, 100 / 100 100 / 100 100 / 100 000 mg In 100 ml @ 5 MCG/KG/MIN 3.972 mls/hr IV.CONT TITRATE PRN Rx#:[id number] 1/2 Normal Saline Inj 1,000 ML 1000 / 1000 1935 / 1935 1000 / 1000 @ 125 mls/hr IV.CONT .Q8H JACOB Rx#:[id number] Maxipime Inj 1,000 MG In NS Inj 100 / 100 100 ML @ 200 mls/hr IV.SIG Q12H JACOB Rx#:[id number] Cubicin Inj 800 MG In NS Inj 100 / 100 100 ML @ 200 mls/hr IV.SIG Q48H JACOB Rx#:[id number] INVanz Inj 500 MG In NS Inj 100 100 / 100 100 / 100 ML @ 200 mls/hr IV.SIG Q24H JACOB Rx#:[id number] Keppra Inj 500 MG In NS Inj 100 210 / 210 105 / 105 105 / 105 ML @ 400 mls/hr IV.SIG Q12H JACOB Rx#:[id number] Tube Feeding 215 / 215 Water Bolus Amount 500 / 500 Output: Urine Amount (Catheter) 1300 / 1300 1250 / 1250 475 / 475 Indwelling Urethral Catheter 1300 / 1300 1250 / 1250 475 / 475 Other: Date of Last Bowel Movement 06/02/18 06/02/18 06/02/18 Narrative: GENERAL: Sedated on the vent, not in respiratory distress. SKIN: Warm and dry. No generalized rash, no ecchymoses and no evidence of embolic lesions. HEAD: Atraumatic. Normocephalic. No temporal wasting, or tenderness. EYES: Chadwick conjunctiva. No petechia or hemorrhage. Pupils equal, round and reactive to light. No scleral icterus. No injection or drainage. EARS, NOSE AND THROAT: Nose without bleeding or purulent nasal discharge. Orally intubated NECK: Trachea midline. Supple and not tender, no meningeal signs CARDIOVASCULAR: Regular rate and rhythm. No murmurs, rubs or gallops heard RESPIRATORY: Clear to auscultation. Breath sounds equal bilaterally. No rales , wheezing or rhonchi ABDOMEN: Soft, obese, globular, distended bowel sounds present and normoactive. EXTREMITIES: No clubbing, cyanosis, or edema. No calf tenderness. Seems to have edis knee effusion NEUROLOGICAL: Sedated. PSYCHIATRIC: Unable to assess. - Urinary Catheter Management Indwelling Urethral Catheter Cath placed during this visit: yes Reason for continuing: Hourly intake/output Insertion date: 06/03/18 Insertion time: 03:00 Assessment and Plan - Plan 68 year old male with (1) 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 Status: Acute (2) Encephalopathy acute Code(s): G93.40 - Encephalopathy, unspecified Status: Acute (3) Acute kidney failure Code(s): N17.9 - Acute kidney failure, unspecified Status: Acute (4) Severe sepsis Code(s): A41.9 - Sepsis, unspecified organism; R65.20 - Severe sepsis without septic shock Status: Acute (5) Metabolic acidemia Code(s): E87.2 - Acidosis Status: Acute (6) UTI (urinary tract infection) Code(s): N39.0 - Urinary tract infection, site not specified Status: Acute (7) Lactic acidosis Code(s): E87.2 - Acidosis Status: Acute (8) Rhabdomyolysis Code(s): M62.82 - Rhabdomyolysis Status: Acute (9) Obesity Code(s): E66.9 - Obesity, unspecified Status: Chronic (10) Hypertension Code(s): I10 - Essential (primary) hypertension Status: Chronic (11) Diabetes Code(s): E11.9 - Type 2 diabetes mellitus without complications Status: Chronic Head CT 06/08/18 00:00 CONCLUSION: 1. Resolving subarachnoid hemorrhage. No acute hemorrhage is identified. Cervical Spine MRI 06/08/18 07:09 CONCLUSION: 1. Increased signal anterior to the C6-C7 disc level and between the prominent anterior marginal osteophytes. The anterior longitudinal ligament is not seen. This could be the sequela of an injury in this region. The remaining aspect of the disc is intact. The vertebral bodies demonstrate normal signal. Prevertebral soft tissue swelling is not seen. This could be chronic. Fluid resembling a pseudarthrosis can also develop between osteophytes potentially. The remaining soft tissues appear intact. 2. Mild left lateral recess disc protrusion at the C2-C3 level. 3. Mild central disc protrusion at the C3-C4 level. 4. Mild disc bulge at the C5-C6 level and minimal disc bulge at the C4-C5 level. 5. Scattered neural foraminal narrowing as described above. Lumbar Spine MRI 06/08/18 07:09 CONCLUSION: 1. Severe stenosis at the L4-L5 level. 2. Moderate stenosis at the L2-L3 level. 3. Minimal disc bulge at the L1-L2 level with a small inferiorly directed extruded disc fragment at the right side. Significant stenosis is not seen at this level. 4. No focal fluid collection is identified. Thoracic Spine MRI 06/08/18 07:09 CONCLUSION: 1. Limited, noncontrast examination with no evidence of abscess. 2. Small posterior central protrusion at T5-6 with mild flattening of the anterior cord. 3. Posterior disc bulge at T6-7 with mild flattening of the anterior thecal sac. Neuro: neuro checks. No neurological changes Pulmonary: Continue mechanical ventilation, pulmonary toilette, nasotracheal suction, and breathing treatments with nebulizers. Lactic acidemia Hypotension History of hypertension -Lactic acid at the outside hospital was 6.8 -Normal saline IV fluids, transthoracic echo -Continue IV fluids. Change to half NS due to hyponatremia -Hold all antihypertensives due to borderline blood pressure following intubation. - cardiology Dr. Odonnell consulted to perform LAURIE to evaluate for endocarditis Renal: Acute kidney injury with creatinine of 3.50. HCO3 at 20.6. Non oliguric. Continue to monitor closely urine output, BUN and creatinine Endocrine: Diabetes. Continue to Monitor serial Acu checks and SSI as needed in detail ID Sepsis. MRSA sepsis NO evidence of spinal epidural abscess - LAURIE negative - likely endovascular - BC still (+) - Has septic L knee Septic Knee. Defer to orthopedics. Scheduled for OR for left knee septic arthritis with Dr. Carlson today Continue Protonix for stress ulcer prophylaxis Continue Pal hose and SCD's for DVT prophylaxis
[2018-06-11] MEDS: Acetaminophen 325 MG Tablet PO PRN (23:33)
[2018-06-12] MEDS: Oral Hygiene Kit OROPHARYNG SCH ×3 (03:10→16:49)
[2018-06-12] MEDS: Insulin NovoLIN Regular Correctional Sugar Inj SQ SCH ×5 (03:10→20:54)
[2018-06-12] MEDS: Propofol 1000 mg/100 ml Inj 1,000 MG/100 ML BOTTLE IV.CONT PRN ×4 (04:50→23:43)
[2018-06-12] MEDS: Sodium Chloride 0.45 % Inj 1,000 ML IV.CONT SCH ×3 (05:09→20:55)
[2018-06-12 05:16] LABS: Baso % (Auto) 0.3 % (0.0-2.0); Eos # (Auto) 0.2 th/mm3 (0.0-0.4); Eos % (Auto) 1.9 % (0.0-4.0); Hematocrit 28.5 % (39.0-51.0); Hemoglobin 9.2 gm/dL (13.0-17.0); Lymph % (Auto) 10.1 % (9.0-44.0); Mean Corpuscular HGB Conc 32.2 % (32.0-36.0); Mean Corpuscular Hemoglobin 29.8 pg (27.0-34.0); Mean Corpuscular Volume 92.6 fL (80.0-100.0); Mean Platelet Volume 9.4 fL (7.0-11.0); Mono # (Auto) 0.7 th/mm3 (0.0-0.9); Neut # (Auto) 8.2 th/mm3 (1.8-7.7); Neut % (Auto) 80.7 % (16.0-70.0); Platelet Count 156 th/mm3 (150-450); Red Blood Count 3.08 mil/mm3 (4.50-5.90); Red Cell Distribution Width 17.4 % (11.6-17.2); White Blood Count 10.2 th/mm3 (4.0-11.0)
[2018-06-12 05:55] LABS: Albumin 1.7 g/dL (3.4-5.0); Anion Gap 7 meq/L (5-15); Aspartate Aminotransferase 47 U/L (15-37); Blood Urea Nitrogen 68 mg/dL (7-18); Calcium 7.7 mg/dL (8.5-10.1); Carbon Dioxide 18.5 meq/L (21.0-32.0); Chloride 126 meq/L (98-107); Glomerular Filtration Rate 23 mL/min (>89); Glucose,Random 140 mg/dL (74-106); Potassium 4.2 meq/L (3.5-5.1); Sodium 151 meq/L (136-145)
[2018-06-12 05:56] LABS: Alanine Aminotransferase 35 U/L (12-78)
[2018-06-12 05:58] LABS: Alkaline Phosphatase 48 U/L (45-117); Total Protein 6.3 g/dL (6.4-8.2)
--- NOTE | 2018-06-12 08:12 | XR ---
EXAM DATE: 06/12/2018 7:56 AM EST AGE/SEX: 68 years / Male INDICATIONS: Respiratory failure. CLINICAL DATA: This is the patient's subsequent encounter. Patient reports that signs and symptoms h ave been present for 4 - 6 days and indicates a pain score of Nonresponsive. MEDICAL/SURGICAL HISTORY: . Diabetes. Hypertension. Renal Failure. None. COMPARISON: C, CHEST 1V SINGLE AP, 06/08/2018. . FINDINGS: Lungs are hypoaerated. Significant airspace disease remains evident in the left base. Endotracheal tu be and nasogastric feeding tube are in position CONCLUSION: Persistent left basilar airspace disease otherwise stable chest. Electronically signed by: Dhaval Montes MD 06/12/2018 8:11 AM EST
[2018-06-12] MEDS: Chlorhexidine 0.12% Oral Kit 15 ML UDC OROPHARYNG SCH ×2 (09:05→20:07)
[2018-06-12] MEDS: Heparin - SQ 10,000 UNITS/ML Vial SQ SCH ×2 (09:06→20:07)
[2018-06-12] MEDS: Senna/Docusate Sodium 8.6/50 MG Tablet PO SCH ×2 (09:07→20:06)
[2018-06-12] MEDS: Famotidine PF Inj 20 MG/2 ML Vial IV.PUSH SCH ×2 (09:07→20:06)
--- NOTE | 2018-06-12 09:54 | P.PNCC ---
Subjective Subjective Remarks/Hospital Course: 06/03: Patient is a 68-year-old male with past medical history significant for type 2 diabetes, hypertension, morbid obesity who presented to the [facility] emergency department with weakness and slurred speech. Symptoms present for 2 days, apparently he was found on the floor of his mobile home. He was noted to have high fever at the [facility] his WBC count was 21.3 UA was positive. His sodium was 134 BUN 50 with a creatinine of 2.33 bicarb was 16 lactic acid was 6.8. CPK more than 3000 at the outside hospital. A CT of the head showed focal hemorrhage into the right quadrigeminal plate cistern. Dr. Hopkins was contacted who accepted the patient and requested admission to critical care. Patient was accepted to [facility] at [place] Dr. Deluca evaluated the patient in the [facility], he is lying in the bed. Slightly tachypneic moderate distress. Patient is oriented to place and person. CT of the head repeated here at [place] showed hemorrhage along the posterior aspect of the brainstem measuring up to 2.8 cm in maximal diameter. Mild mass effect on the brainstem. No hydrocephalus. I have started the patient on Cardene infusion for tight blood pressure control. Zosyn for UTI. 2% saline will be started to keep sodium above 150. Avoid mannitol due to renal failure. Keppra for seizure prophylaxis. I am unable to find coags but platelet count was normal. 06/04: MRSA bacteremia ob blood cultures drawn on admission. Currently on precedex, on room air. Awake, follows commands, speech, unintelligible. Started on IV vanc. ID consulted as concern for septic emboli/ endocarditis as cause for brainstem bleed. 06/05: 48 hours following a mid brain spontaneous hemorrhage complicated by numerous MRSA blood cultures. Blood pressure acceptably well controlled. Fever pattern persists. Patient tolerating extubation and protecting airway adequately. Taper completely off Precedex. Serum osmolality acceptably concentrated. 06/06: Serum osmolality acceptable, will allow sodium to drift back into the lower 150s now. Patient is alert and interactive. He moves 4 limbs spontaneously. Episodic fevers to 102+. We will continue with infectious disease workup for source of bacteremia. Endocarditis remains high on the list of possibilities. 06/07: Awake, alert, following commands. Speech very slurred however responds appropriately. Slight disorientation. Thought he was in [place]. Knows he is in the hospital. Complains of back pain. 06/08: Drowsy, arousable, tachypneic. Sodium up to 163, started on D5W and free water. Creatinine up. Tolerating tube feeds. Awaiting MRI. Will need LAURIE. Will need intubation probably for airway and in order to transport for MRI and LAURIE. 06/09: Patient intubated and placed on mechanical ventilation on 06/09. Dr. Hopkins has cleared patient for LAURIE/anticoagulation/valve surgery if needed. We are awaiting LAURIE for further evaluation of MRSA bacteremia by cardiology to determine source. Orthopedics evaluating left knee synovitis/effusion/meniscal tear. 06/10: Underwent aspiration of the left knee yesterday which is growing MRSA. Remains sedated, orally intubated on mechanical ventilation. Underwent LAURIE today which did not reveal any vegetation. Being followed by orthopedics/ID/ neurosurgery. 06/11: Remains orally intubated on mechanical ventilation. Scheduled for OR for left knee septic arthritis with Dr. Carlson. 06/12: Remains orally intubated on mechanical ventilation. Waiting for OR for left knee septic arthritis with Dr. Carlson Objective Vital Signs / I&O: Vital Signs 06/11/18 10:00 06/11/18 11:00 06/11/18 11:25 Temperature Pulse Rate 83 89 Respiratory Rate 25 H 25 H 25 H Blood Pressure 163/73 H 136/62 Pulse Oximetry 100 100 100 06/11/18 12:00 06/11/18 13:00 06/11/18 14:00 Temperature 98.0 F Pulse Rate 85 82 76 Respiratory Rate 27 H 25 H 25 H Blood Pressure 125/60 143/66 H 141/63 H Pulse Oximetry 99 100 100 06/11/18 15:00 06/11/18 15:18 06/11/18 16:00 Temperature 98.7 F Pulse Rate 87 84 78 Respiratory Rate 27 H 25 H 25 H Blood Pressure 147/67 H 136/63 Pulse Oximetry 100 100 100 06/11/18 17:00 06/11/18 18:00 06/11/18 19:00 Temperature Pulse Rate 83 84 83 Respiratory Rate 24 27 H 26 H Blood Pressure 132/60 142/67 H 133/59 L Pulse Oximetry 100 100 100 06/11/18 19:30 06/11/18 20:00 06/11/18 20:27 Temperature 99.0 F Pulse Rate 81 87 Respiratory Rate 25 H 26 H 27 H Blood Pressure 128/58 L 136/61 Pulse Oximetry 100 100 100 06/11/18 20:30 06/11/18 20:31 06/11/18 21:00 Temperature Pulse Rate 85 85 91 H Respiratory Rate 26 H 27 H 26 H Blood Pressure 141/63 H 137/62 Pulse Oximetry 100 100 06/11/18 21:30 06/11/18 22:00 06/11/18 22:30 Temperature Pulse Rate 88 91 H 87 Respiratory Rate 28 H 27 H 27 H Blood Pressure 145/66 H 137/63 130/58 L Pulse Oximetry 100 100 100 06/11/18 23:00 06/11/18 23:30 06/11/18 23:34 Temperature 101.3 F H Pulse Rate 74 77 Respiratory Rate 24 24 25 H Blood Pressure 124/60 140/65 Pulse Oximetry 100 100 100 06/12/18 00:00 06/12/18 00:30 06/12/18 01:00 Temperature Pulse Rate 77 79 77 Respiratory Rate 25 H 22 22 Blood Pressure 127/60 122/57 L 126/58 L Pulse Oximetry 100 100 100 06/12/18 01:30 06/12/18 02:00 06/12/18 02:30 Temperature Pulse Rate 70 71 75 Respiratory Rate 22 24 24 Blood Pressure 132/60 127/58 L 134/63 Pulse Oximetry 100 100 100 06/12/18 03:00 06/12/18 03:27 06/12/18 03:28 Temperature 97.4 F L Pulse Rate 77 77 Respiratory Rate 24 26 H 26 H Blood Pressure 135/60 Pulse Oximetry 100 100 06/12/18 03:30 06/12/18 04:00 06/12/18 04:30 Temperature Pulse Rate 75 79 68 Respiratory Rate 24 21 24 Blood Pressure 134/60 124/60 126/58 L Pulse Oximetry 100 100 100 06/12/18 05:00 06/12/18 05:30 06/12/18 06:00 Temperature Pulse Rate 72 67 64 Respiratory Rate 24 22 25 H Blood Pressure 113/56 L 108/51 L 104/52 L Pulse Oximetry 100 100 100 06/12/18 07:00 06/12/18 07:30 06/12/18 08:00 Temperature 98.0 F Pulse Rate 73 73 67 Respiratory Rate 26 H 25 H 24 Blood Pressure 111/52 L 115/51 L 125/58 L Pulse Oximetry 100 100 100 06/12/18 08:30 06/12/18 09:00 Temperature Pulse Rate 66 65 Respiratory Rate 21 22 Blood Pressure 113/57 L 108/50 L Pulse Oximetry 100 100 Intake & Output 06/11/18 06/12/18 06/12/18 18:59 06:59 18:59 Intake Total 1305 / 1305 2555 / 2555 Output Total 2875 / 2875 1450 / 1450 Balance -1570 / -1570 1105 / 1105 Weight 141.6 kg Intake: IV 1305 / 1305 2305 / 2305 Diprivan 1000 mg/100 ml Inj 1, 100 / 100 200 / 200 000 mg In 100 ml @ 5 MCG/KG/MIN 3.972 mls/hr IV.CONT TITRATE PRN Rx#:[id number] 1/2 Normal Saline Inj 1,000 ML 1000 / 1000 2000 / 2000 @ 125 mls/hr IV.CONT .Q8H JACOB Rx#:[id number] INVanz Inj 500 MG In NS Inj 100 100 / 100 ML @ 200 mls/hr IV.SIG Q24H JACOB Rx#:[id number] Keppra Inj 500 MG In NS Inj 100 105 / 105 105 / 105 ML @ 400 mls/hr IV.SIG Q12H JACOB Rx#:[id number] Tube Feeding 0 / 0 Tube Irrigant 250 / 250 Output: Urine 1200 / 1200 Urine Amount (Catheter) 1675 / 1675 1450 / 1450 Indwelling Urethral Catheter 1675 / 1675 1450 / 1450 Other: Date of Last Bowel Movement 06/02/18 06/02/18 Result Diagrams: 06/12/18 04:29 06/12/18 04:29 Objective Remarks: GENERAL: 68-year-old male lying in ICU bed , encephalopathic, orally intubated on mechanical ventilation SKIN: Focused skin assessment warm/dry. HEAD: Atraumatic. Normocephalic. EYES: Pupils equal and round. No scleral icterus. No injection or drainage. ENT: No nasal bleeding or discharge. ET tube in place, oral cavity dry. Trachea midline. CARDIOVASCULAR: Normal S1-S2. No murmurs. Regular rate and rhythm. No venous distention. RESPIRATORY: Orally intubated on mechanical ventilation, air entry decreased bilaterally at bases, few rhonchi, no adventitious sounds GASTROINTESTINAL: Abdomen soft, non-tender, nondistended. BS present. No guarding. MUSCULOSKELETAL: Warm, well perfused. Left knee swelling noted with bruising over skin below knee NEUROLOGICAL: Encephalopathic/sedated, orally intubated, Pupils equal 3mm, reactive, orally intubated on mechanical ventilation. Not responding to commands. Minimal withdrawal to pain. Assessment and Plan - Problem List (1) 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 Status: Acute (2) Encephalopathy acute Code(s): G93.40 - Encephalopathy, unspecified Status: Acute (3) Acute kidney failure Code(s): N17.9 - Acute kidney failure, unspecified Status: Acute (4) Severe sepsis Code(s): A41.9 - Sepsis, unspecified organism; R65.20 - Severe sepsis without septic shock Status: Acute (5) Metabolic acidemia Code(s): E87.2 - Acidosis Status: Acute (6) UTI (urinary tract infection) Code(s): N39.0 - Urinary tract infection, site not specified Status: Acute (7) Lactic acidosis Code(s): E87.2 - Acidosis Status: Acute (8) Rhabdomyolysis Code(s): M62.82 - Rhabdomyolysis Status: Acute (9) Obesity Code(s): E66.9 - Obesity, unspecified Status: Chronic (10) Hypertension Code(s): I10 - Essential (primary) hypertension Status: Chronic (11) Diabetes Code(s): E11.9 - Type 2 diabetes mellitus without complications Status: Chronic - Assessment and Plan Plan: NEURO: Brainstem hemorrhage measuring up to 2.8 cm in maximal diameter, mild mass effect Acute encephalopathy -Repeat CT findings as above -Neurosurgery Dr. Hopkins consulted and following - off 2% saline. Currently on free water/D5W for hypernatremia -Close neuro monitoring. MRI/MRA brain results noted -Repeat head CT 06/08 shows resolving brainstem hemorrhage. -Placed on Keppra for seizure prophylaxis -With MRSA bacteremia suspect septic emboli with mycotic aneurism vs hypertensive bleed. -More encephalopathic, intubated for airway protection. Propofol/ Precedex gtt for sedation following intubation with daily sedation vacation. -MRI spine reviewed, no evidence of epidural abscess RESP: Acute resp failure on mechanical ventilation Past smoking -DuoNeb every as needed -Continue mechanical ventilation, vent bundle, bronchodilators as needed -Await improvement in neurologic status prior to deciding extubation. Daily CPAP trials. CV: Lactic acidemia Hypotension History of hypertension -Lactic acid at the outside hospital was 6.8 -Normal saline IV fluids, transthoracic echo -Continue IV fluids. Change to half NS due to hyponatremia -Hold all antihypertensives due to borderline blood pressure following intubation. - cardiology Dr. Odonnell consulted to perform LAURIE to evaluate for endocarditis LAURIE performed on 06/10- for any vegetations. GI: -NG tube in place. Resume tube feeds and advance to goal as tolerated. : Acute kidney injury Rhabdomyolysis -Monitor renal function closely. Continue [place] catheter. -Strict intake output, monitor and replete electrolytes. -Nephrology consulted for rising creatinine-suspect multifactorial secondary to sepsis/vancomycin/gentamicin toxicity/IV contrast exposure. ID: Severe sepsis ESBL E. coli UTI MRSA bacteremia MRSA left knee septic arthritis -On Cubicin. -Cefepime changed to Invanz on 06/10 for ESBL E. coli in urine culture -Vancomycin and gentamicin discontinued on 06/08 per ID due to worsening renal function Blood cultures positive for MRSA (10/07) -ID consulted-Dr. Rodriguez -LAURIE negative for vegetation on 06/10 -s/p MRI left knee due to swelling -orthopedics performed left knee aspiration on 06/09 with drainage of 60 cc of purulent cloudy fluid which is growing MRSA. -Ortho following and to decide further management for left knee septic arthritis - scheduled for OR for 06/11 HEME: Leukocytosis secondary to sepsis -Monitor CBC, coags ENDO: Type 2 diabetes -Sliding scale insulin -Add basal long-acting insulin PROPH: -Bilateral lower extremity SCDs. IV famotidine. Subcutaneous heparin for DVT prophylaxis which was cleared by neurosurgery. LINES: -Utilize peripheral IVs, central line if needed Overall impression: Blood pressure control remains problematic and will need additional scheduled medication. Agitation appears better controlled. Bacteremia remains crucial and possibly life-threatening problem 06/08: D/W Dr. Hopkins. Called patient's son Abraham Bautista at [phone] and updated him regarding current clinical status and plan to intubate and [facility] due to concern regarding airway protection and in order to safely get imaging and possibly LAURIE and he voiced understanding and was agreeable. 06/09: Discussed with ID, discussed with Dr. Hopkins. Awaiting LAURIE. Start tube feeds after LAURIE 06/10, !08/12: D/W ID condition critical. time spent on critical care excluding procedures: 30 min (1) Brain stem hemorrhage Qualifiers: Intracerebral hemorrhage etiology: nontraumatic
[2018-06-12] MEDS ORDERED: DAPTOmycin Inj 800 MG in Sodium Chlor 0.9% Inj 100 ML IV.SIG ONE (13:01)
[2018-06-12] MEDS ORDERED: fentaNYL Citrate Inj 100 MCG/2 ML Ampul ONE (13:54)
[2018-06-12] MEDS ORDERED: fentaNYL 10 mcg/mL Premix Drip 2,500 MCG/250 ML BAG IV.SIG PRN (14:20)
[2018-06-12] MEDS ORDERED: fentaNYL Citrate Inj 100 MCG/2 ML Ampul IV.PUSH ONE (14:20)
--- NOTE | 2018-06-12 15:21 | P.PNNS ---
Subjective Interval history: HD#9 Subjective Remarks/Hospital Course: 06/03: Patient is a 68-year-old male with past medical history significant for type 2 diabetes, hypertension, morbid obesity who presented to the [facility] emergency department with weakness and slurred speech. Symptoms present for 2 days, apparently he was found on the floor of his mobile home. He was noted to have high fever at the [facility] his WBC count was 21.3 UA was positive. His sodium was 134 BUN 50 with a creatinine of 2.33 bicarb was 16 lactic acid was 6.8. CPK more than 3000 at [address] outside hospital. A CT of the head showed focal hemorrhage into the right quadrigeminal plate cistern. Dr. Hopkins was contacted who accepted the patient and requested admission to critical care. Patient was accepted to [facility] at [place]. Deluca evaluated the patient in the [facility], he is lying in the bed. Slightly tachypneic moderate distress. Patient is oriented to place and person. CT of the head repeated here at [place] showed hemorrhage along the posterior aspect of the brainstem measuring up to 2.8 cm in maximal diameter. Mild mass effect on the brainstem. No hydrocephalus. I have started the patient on Cardene infusion for tight blood pressure control. Zosyn for UTI. 2% saline will be started to keep sodium above 150. Avoid mannitol due to renal failure. Keppra for seizure prophylaxis. I am unable to find coags but platelet count was normal. 06/04: MRSA bacteremia ob blood cultures drawn on admission. Currently on precedex, on room air. Awake, follows commands, speech, unintelligible. Started on IV vanc. ID consulted as concern for septic emboli/ endocarditis as cause for brainstem bleed. 06/05: 48 hours following a mid brain spontaneous hemorrhage complicated by numerous MRSA blood cultures. Blood pressure acceptably well controlled. Fever pattern persists. Patient tolerating extubation and protecting airway adequately. Taper completely off Precedex. Serum osmolality acceptably concentrated. 06/06: Serum osmolality acceptable, will allow sodium to drift back into the lower 150s now. Patient is alert and interactive. He moves 4 limbs spontaneously. Episodic fevers to 102+. We will continue with infectious disease workup for source of bacteremia. Endocarditis remains high on the list of possibilities. 06/07: Awake, alert, following commands. Speech very slurred however responds appropriately. Slight disorientation. Thought he was in [place]. Knows he is in the hospital. Complains of back pain. 06/08: Drowsy, arousable, tachypneic. Sodium up to 163, started on D5W and free water. Creatinine up. Tolerating tube feeds. Awaiting MRI. Will need LAURIE. Will need intubation probably for airway and in order to transport for MRI and LAURIE. 06/09: Patient intubated and placed on mechanical ventilation on 06/09. Dr. Hopkins has cleared patient for LAURIE/anticoagulation/valve surgery if needed. We are awaiting LAURIE for further evaluation of MRSA bacteremia by cardiology to determine source. Orthopedics evaluating left knee synovitis/effusion/meniscal tear. 06/10: Underwent aspiration of the left knee yesterday which is growing MRSA. Remains sedated, orally intubated on mechanical ventilation. Underwent LAURIE today which did not reveal any vegetation. Being followed by orthopedics/ID/ neurosurgery. 06/11: Remains orally intubated on mechanical ventilation. Scheduled for OR for left knee septic arthritis with Dr. Carlson. 06/12: Remains orally intubated on mechanical ventilation. Waiting for OR for left knee septic arthritis with Dr. Carlson Physical Exam Vital signs: Vital Signs 06/11/18 15:18 06/11/18 16:00 06/11/18 17:00 Temperature 98.7 F Pulse Rate 84 78 83 Respiratory Rate 25 H 25 H 24 Blood Pressure 136/63 132/60 Pulse Oximetry 100 100 100 06/11/18 18:00 06/11/18 19:00 06/11/18 19:30 Temperature Pulse Rate 84 83 81 Respiratory Rate 27 H 26 H 25 H Blood Pressure 142/67 H 133/59 L 128/58 L Pulse Oximetry 100 100 100 06/11/18 20:00 06/11/18 20:27 06/11/18 20:30 Temperature 99.0 F Pulse Rate 87 85 Respiratory Rate 26 H 27 H 26 H Blood Pressure 136/61 141/63 H Pulse Oximetry 100 100 100 06/11/18 20:31 06/11/18 21:00 06/11/18 21:30 Temperature Pulse Rate 85 91 H 88 Respiratory Rate 27 H 26 H 28 H Blood Pressure 137/62 145/66 H Pulse Oximetry 100 100 06/11/18 22:00 06/11/18 22:30 06/11/18 23:00 Temperature Pulse Rate 91 H 87 74 Respiratory Rate 27 H 27 H 24 Blood Pressure 137/63 130/58 L 124/60 Pulse Oximetry 100 100 100 06/11/18 23:30 06/11/18 23:34 06/12/18 00:00 Temperature 101.3 F H Pulse Rate 77 77 Respiratory Rate 24 25 H 25 H Blood Pressure 140/65 127/60 Pulse Oximetry 100 100 100 06/12/18 00:30 06/12/18 01:00 06/12/18 01:30 Temperature Pulse Rate 79 77 70 Respiratory Rate 22 22 22 Blood Pressure 122/57 L 126/58 L 132/60 Pulse Oximetry 100 100 100 06/12/18 02:00 06/12/18 02:30 06/12/18 03:00 Temperature 97.4 F L Pulse Rate 71 75 77 Respiratory Rate 24 24 24 Blood Pressure 127/58 L 134/63 135/60 Pulse Oximetry 100 100 100 06/12/18 03:27 06/12/18 03:28 06/12/18 03:30 Temperature Pulse Rate 77 75 Respiratory Rate 26 H 26 H 24 Blood Pressure 134/60 Pulse Oximetry 100 100 06/12/18 04:00 06/12/18 04:30 06/12/18 05:00 Temperature Pulse Rate 79 68 72 Respiratory Rate 21 24 24 Blood Pressure 124/60 126/58 L 113/56 L Pulse Oximetry 100 100 100 06/12/18 05:30 06/12/18 06:00 06/12/18 07:00 Temperature Pulse Rate 67 64 73 Respiratory Rate 22 25 H 26 H Blood Pressure 108/51 L 104/52 L 111/52 L Pulse Oximetry 100 100 100 06/12/18 07:30 06/12/18 08:00 06/12/18 08:30 Temperature 98.0 F Pulse Rate 73 67 66 Respiratory Rate 25 H 24 21 Blood Pressure 115/51 L 125/58 L 113/57 L Pulse Oximetry 100 100 100 06/12/18 09:00 06/12/18 09:30 06/12/18 10:00 Temperature Pulse Rate 65 65 62 Respiratory Rate 22 24 21 Blood Pressure 108/50 L 105/53 L 110/51 L Pulse Oximetry 100 100 100 06/12/18 10:30 06/12/18 11:00 06/12/18 11:30 Temperature Pulse Rate 81 84 79 Respiratory Rate 25 H 26 H 26 H Blood Pressure 143/68 H 147/67 H 139/65 Pulse Oximetry 100 100 100 06/12/18 12:00 06/12/18 12:27 06/12/18 12:30 Temperature 99.0 F Pulse Rate 95 H 89 92 H Respiratory Rate 30 H Blood Pressure 160/70 H 169/80 H 167/78 H Pulse Oximetry 97 100 100 06/12/18 12:41 06/12/18 12:45 06/12/18 12:50 Temperature 97.9 F 97.7 F Pulse Rate 83 83 81 Respiratory Rate Blood Pressure 128/58 L 125/58 L 127/60 Pulse Oximetry 98 98 98 06/12/18 12:55 06/12/18 13:00 06/12/18 13:05 Temperature 97.7 F 97.5 F L 97.5 F L Pulse Rate 79 82 81 Respiratory Rate Blood Pressure 110/57 L 107/56 L 107/55 L Pulse Oximetry 97 99 100 06/12/18 13:10 06/12/18 13:15 06/12/18 13:20 Temperature 97.5 F L 97.5 F L 97.3 F L Pulse Rate 81 81 79 Respiratory Rate Blood Pressure 105/56 L 100/56 L 100/54 L Pulse Oximetry 99 99 100 06/12/18 13:25 06/12/18 13:30 06/12/18 13:35 Temperature Pulse Rate 79 78 76 Respiratory Rate Blood Pressure 107/57 L 108/58 L 90/54 L Pulse Oximetry 100 100 100 06/12/18 13:40 06/12/18 13:45 06/12/18 13:50 Temperature Pulse Rate 80 81 81 Respiratory Rate 19 20 Blood Pressure 103/54 L 110/55 L 119/57 L Pulse Oximetry 100 96 97 06/12/18 14:00 06/12/18 14:09 Temperature Pulse Rate 80 79 Respiratory Rate 40 H 36 H Blood Pressure 132/63 137/64 Pulse Oximetry 93 L 98 Intake & Output 06/11/18 06/12/18 06/12/18 18:59 06:59 18:59 Intake Total 1305 / 1305 2555 / 2555 750 / 750 Output Total 2875 / 2875 1450 / 1450 225 / 225 Balance -1570 / -1570 1105 / 1105 525 / 525 Weight 141.6 kg Intake: IV 1305 / 1305 2305 / 2305 300 / 300 Diprivan 1000 mg/100 ml Inj 1, 100 / 100 200 / 200 100 / 100 000 mg In 100 ml @ 5 MCG/KG/MIN 3.972 mls/hr IV.CONT TITRATE PRN Rx#:[id number] 1/2 Normal Saline Inj 1,000 ML 1000 / 1000 2000 / 2000 @ 125 mls/hr IV.CONT .Q8H [facility] Rx#:[id number] Cubicin Inj 800 MG In NS Inj 100 / 100 100 ML @ 200 mls/hr IV.SIG ONCE ONE Rx#:[id number] INVanz Inj 500 MG In NS Inj 100 100 / 100 ML @ 200 mls/hr IV.SIG Q24H [facility] Rx#:[id number] INVanz Inj 1,000 MG In NS Inj 100 / 100 100 ML @ 200 mls/hr IV.SIG ONCE ONE Rx#:[id number] Keppra Inj 500 MG In NS Inj 100 105 / 105 105 / 105 ML @ 400 mls/hr IV.SIG Q12H [facility] Rx#:[id number] Tube Feeding 0 / 0 Tube Irrigant 250 / 250 Anesthesia Amount 450 / 450 Output: Urine 1200 / 1200 Estimated Blood Loss 25 / 25 Urine Amount (Catheter) 1675 / 1675 1450 / 1450 200 / 200 Indwelling Urethral Catheter 1675 / 1675 1450 / 1450 200 / 200 Other: Date of Last Bowel Movement 06/02/18 06/02/18 06/07/18 - Constitutional obtunded - Routine HEENT Exam Head: Present: normocephalic, atraumatic Eye: Present: PERRL - Routine Neurological Exam Neuro: Eyes do not open to deep pain Pupils react Flexes to deep painful stimulus with Left > Right. - Detailed Neurological Exam: Coma Scale Eye Opening: None Verbal Response: None Motor Response: Abnormal flexion Ronald Coma Scale Total: 5 - Urinary Catheter Management Indwelling Urethral Catheter Cath placed during this visit: yes Urethral indwelling: Yes Reason for continuing: Hourly intake/output Insertion date: 06/03/18 Insertion time: 03:00 Assessment and Plan - Plan 68 year old male with basal ganglia/brainstem hemorrhage, stable GCS-5T Septicemia, Bacteremia, ?source. LAURIE negative for vegetations Bronchoscopy? Being taken down for wound debridement today cont. abx cont. present management
--- NOTE | 2018-06-12 15:27 | MP ---
cc: Donavon Scott MD DATE OF OPERATION: 06/12/2018 PREOPERATIVE DIAGNOSIS: Left knee sepsis. POSTOPERATIVE DIAGNOSIS: Left knee sepsis. PROCEDURE PERFORMED: Left knee lateral arthrotomy with irrigation and debridement. ANESTHETIC: General. SURGEON: Donavon Scott MD COMPUTER SALESPERSON RETAIL SURGEON: Staff. DRAIN: One limb Hemovac. SPECIMENS: Routine culture obtained. COMPLICATIONS: None known. INDICATIONS FOR PROCEDURE: Ezra Bautista is a 68-year-old male with multiple medical problems including hematologic sepsis and left knee joint sepsis. He originally was scheduled for irrigation and debridement by my partner, Dr. Carlson, including hematologic sepsis and left knee joint sepsis. He is indicated for irrigation and debridement. Informed consent has been obtained. DESCRIPTION OF PROCEDURE: The patient was brought to the intensive care unit, intubated. He was placed under general anesthesia. The left lower extremity was prepped and draped in the usual sterile fashion. His routine antibiotics were moved up to be given and to coincide with the surgery. Timeout was completed. An 8 cm incision was made superior and lateral to the patella. Meticulous hemostasis was obtained down to the fascial layer. We then traversed the fascia and split a portion of the vastus lateralis and traversed the synovial tissue and entered the knee joint, where purulent fluid was noted. Routine culture was obtained. We proceeded to suction out the joint. We noted significant hypertrophic inflamed synovial tissue in superolateral aspect of the knee. This was debrided and a tissue culture was sent. We had meticulous hemostasis as we performed this. We then proceeded with antibiotic irrigation using a pulsatile lavage. We proceeded with 6000 mL of antibiotic-impregnated saline solution. We then placed a drain deep within the knee joint. We then proceeded to change instruments and redraped and then proceeded to close with antibiotic suture Vicryl and then Prolene on the skin. Sterile dressing was applied. Herman wrap applied. The patient was returned to the ICU in stable condition. MD EMMA Gibbons/kath , 02:10 PM , 02:22 PM
--- NOTE | 2018-06-12 15:57 | P.PNNP ---
Subjective Interval history: Patient is on the vent Physical Exam Vital signs: Vital Signs 06/11/18 16:00 06/11/18 17:00 06/11/18 18:00 Temperature 98.7 F Pulse Rate 78 83 84 Respiratory Rate 25 H 24 27 H Blood Pressure 136/63 132/60 142/67 H Pulse Oximetry 100 100 100 06/11/18 19:00 06/11/18 19:30 06/11/18 20:00 Temperature 99.0 F Pulse Rate 83 81 87 Respiratory Rate 26 H 25 H 26 H Blood Pressure 133/59 L 128/58 L 136/61 Pulse Oximetry 100 100 100 06/11/18 20:27 06/11/18 20:30 06/11/18 20:31 Temperature Pulse Rate 85 85 Respiratory Rate 27 H 26 H 27 H Blood Pressure 141/63 H Pulse Oximetry 100 100 06/11/18 21:00 06/11/18 21:30 06/11/18 22:00 Temperature Pulse Rate 91 H 88 91 H Respiratory Rate 26 H 28 H 27 H Blood Pressure 137/62 145/66 H 137/63 Pulse Oximetry 100 100 100 06/11/18 22:30 06/11/18 23:00 06/11/18 23:30 Temperature 101.3 F H Pulse Rate 87 74 77 Respiratory Rate 27 H 24 24 Blood Pressure 130/58 L 124/60 140/65 Pulse Oximetry 100 100 100 06/11/18 23:34 06/12/18 00:00 06/12/18 00:30 Temperature Pulse Rate 77 79 Respiratory Rate 25 H 25 H 22 Blood Pressure 127/60 122/57 L Pulse Oximetry 100 100 100 06/12/18 01:00 06/12/18 01:30 06/12/18 02:00 Temperature Pulse Rate 77 70 71 Respiratory Rate 22 22 24 Blood Pressure 126/58 L 132/60 127/58 L Pulse Oximetry 100 100 100 06/12/18 02:30 06/12/18 03:00 06/12/18 03:27 Temperature 97.4 F L Pulse Rate 75 77 Respiratory Rate 24 24 26 H Blood Pressure 134/63 135/60 Pulse Oximetry 100 100 100 06/12/18 03:28 06/12/18 03:30 06/12/18 04:00 Temperature Pulse Rate 77 75 79 Respiratory Rate 26 H 24 21 Blood Pressure 134/60 124/60 Pulse Oximetry 100 100 12/08/18 04:30 06/12/18 05:00 06/12/18 05:30 Temperature Pulse Rate 68 72 67 Respiratory Rate 24 24 22 Blood Pressure 126/58 L 113/56 L 108/51 L Pulse Oximetry 100 100 100 06/12/18 06:00 06/12/18 07:00 06/12/18 07:30 Temperature Pulse Rate 64 73 73 Respiratory Rate 25 H 26 H 25 H Blood Pressure 104/52 L 111/52 L 115/51 L Pulse Oximetry 100 100 100 06/12/18 08:00 06/12/18 08:30 06/12/18 09:00 Temperature 98.0 F Pulse Rate 67 66 65 Respiratory Rate 24 21 22 Blood Pressure 125/58 L 113/57 L 108/50 L Pulse Oximetry 100 100 100 06/12/18 09:30 06/12/18 10:00 06/12/18 10:30 Temperature Pulse Rate 65 62 81 Respiratory Rate 24 21 25 H Blood Pressure 105/53 L 110/51 L 143/68 H Pulse Oximetry 100 100 100 06/12/18 11:00 06/12/18 11:30 06/12/18 12:00 Temperature 99.0 F Pulse Rate 84 79 95 H Respiratory Rate 26 H 26 H 30 H Blood Pressure 147/67 H 139/65 160/70 H Pulse Oximetry 100 100 97 06/12/18 12:27 06/12/18 12:30 06/12/18 12:41 Temperature Pulse Rate 89 92 H 83 Respiratory Rate Blood Pressure 169/80 H 167/78 H 128/58 L Pulse Oximetry 100 100 98 06/12/18 12:45 06/12/18 12:50 06/12/18 12:55 Temperature 97.9 F 97.7 F 97.7 F Pulse Rate 83 81 79 Respiratory Rate Blood Pressure 125/58 L 127/60 110/57 L Pulse Oximetry 98 98 97 06/12/18 13:00 06/12/18 13:05 06/12/18 13:10 Temperature 97.5 F L 97.5 F L 97.5 F L Pulse Rate 82 81 81 Respiratory Rate Blood Pressure 107/56 L 107/55 L 105/56 L Pulse Oximetry 99 100 99 06/12/18 13:15 06/12/18 13:20 06/12/18 13:25 Temperature 97.5 F L 97.3 F L Pulse Rate 81 79 79 Respiratory Rate Blood Pressure 100/56 L 100/54 L 107/57 L Pulse Oximetry 99 100 100 06/12/18 13:30 06/12/18 13:35 06/12/18 13:40 Temperature Pulse Rate 78 76 80 Respiratory Rate Blood Pressure 108/58 L 90/54 L 103/54 L Pulse Oximetry 100 100 100 06/12/18 13:45 06/12/18 13:50 06/12/18 14:00 Temperature Pulse Rate 81 81 80 Respiratory Rate 19 20 40 H Blood Pressure 110/55 L 119/57 L 132/63 Pulse Oximetry 96 97 93 L 06/12/18 14:09 Temperature Pulse Rate 79 Respiratory Rate 36 H Blood Pressure 137/64 Pulse Oximetry 98 Intake & Output 06/11/18 06/12/18 06/12/18 18:59 06:59 18:59 Intake Total 1305 / 1305 2555 / 2555 750 / 750 Output Total 2875 / 2875 1450 / 1450 225 / 225 Balance -1570 / -1570 1105 / 1105 525 / 525 Weight 141.6 kg Intake: IV 1305 / 1305 2305 / 2305 300 / 300 Diprivan 1000 mg/100 ml Inj 1, 100 / 100 200 / 200 100 / 100 000 mg In 100 ml @ 5 MCG/KG/MIN 3.972 mls/hr IV.CONT TITRATE PRN Rx#:[id number] 1/2 Normal Saline Inj 1,000 ML 1000 / 1000 2000 / 2000 @ 125 mls/hr IV.CONT .Q8H [facility] Rx#:[id number] Cubicin Inj 800 MG In NS Inj 100 / 100 100 ML @ 200 mls/hr IV.SIG ONCE ONE Rx#:[id number] INVanz Inj 500 MG In NS Inj 100 100 / 100 ML @ 200 mls/hr IV.SIG Q24H [facility] Rx#:[id number] INVanz Inj 1,000 MG In NS Inj 100 / 100 100 ML @ 200 mls/hr IV.SIG ONCE ONE Rx#:[id number] Keppra Inj 500 MG In NS Inj 100 105 / 105 105 / 105 ML @ 400 mls/hr IV.SIG Q12H [facility] Rx#:[id number] Tube Feeding 0 / 0 Tube Irrigant 250 / 250 Anesthesia Amount 450 / 450 Output: Urine 1200 / 1200 Estimated Blood Loss 25 / 25 Urine Amount (Catheter) 1675 / 1675 1450 / 1450 200 / 200 Indwelling Urethral Catheter 1675 / 1675 1450 / 1450 200 / 200 Other: Date of Last Bowel Movement 06/02/18 06/02/18 06/07/18 Narrative: GENERAL: Sedated on the vent, not in respiratory distress. SKIN: Warm and dry. No generalized rash, no ecchymoses and no evidence of embolic lesions. HEAD: Atraumatic. Normocephalic. No temporal wasting, or tenderness. EYES: Lander conjunctiva. No petechia or hemorrhage. Pupils equal, round and reactive to light. No scleral icterus. No injection or drainage. EARS, NOSE AND THROAT: Nose without bleeding or purulent nasal discharge. Orally intubated NECK: Trachea midline. Supple and not tender, no meningeal signs CARDIOVASCULAR: Regular rate and rhythm. No murmurs, rubs or gallops heard RESPIRATORY: Clear to auscultation. Breath sounds equal bilaterally. No rales , wheezing or rhonchi ABDOMEN: Soft, obese, globular, distended bowel sounds present and normoactive. EXTREMITIES: Left knee wrapped in dressing with drain in place NEUROLOGICAL: Sedated. PSYCHIATRIC: Unable to assess. - Urinary Catheter Management Indwelling Urethral Catheter Cath placed during this visit: yes Urethral indwelling: Yes Reason for continuing: Hourly intake/output Insertion date: 06/03/18 Insertion time: 03:00 Assessment and Plan - Assessment (1) Acute kidney failure Code(s): N17.9 - Acute kidney failure, unspecified Status: Acute Plan: Acute kidney injury with creatinine of 3.50. HCO3 at 20.6. Non oliguric. On admission creatinine was noted to be 1.56 CT on abdomen with no acute findings. Bilateral renal cysts noted. Patient may have some chronic kidney disease but baseline creatinine is not known. Proteinuria noted in urine. Creatinine started to increase on the 4th at 2.86. NIKKI with FeNA at 2.35 suggestive of ATN possibly from sepsis or contrast nephropathy. AIN in differential also with vancomycin/gentamicin levels elevated on the 4th. SPEP negative immunology pending C3 mildly low, C4 normal. Creatinine has improved at 2.7 from 2.9, with good urinary output. immunology pending. Recommend to continue IVF as patient tolerates. Avoid nephrotoxins as possible. Will follow urinary output and labs. Labs in AM
--- NOTE | 2018-06-12 17:29 | ECG ---
Date Performed: 06/12/2018 Time Performed: 00:41:58 PTAGE: 68 years EKG: Sinus rhythm . Low QRS voltages in precordial leads Borderline ECG NO PREVIOUS TRACING DOCTOR: Zander Ball Interpretating Date/Time 06/12/2018 17:24:09
[2018-06-13] MEDS: Oral Hygiene Kit OROPHARYNG SCH ×5 (00:11→23:16)
[2018-06-13] MEDS: Insulin NovoLIN Regular Correctional Sugar Inj SQ SCH ×7 (00:11→23:16)
[2018-06-13] MEDS: Sodium Chloride 0.45 % Inj 1,000 ML IV.CONT SCH ×3 (03:29→08:42)
[2018-06-13 05:26] LABS: Baso % (Auto) 0.2 % (0.0-2.0); Eos # (Auto) 0.1 th/mm3 (0.0-0.4); Eos % (Auto) 1.5 % (0.0-4.0); Hematocrit 27.8 % (39.0-51.0); Hemoglobin 9.3 gm/dL (13.0-17.0); Lymph # (Auto) 0.9 th/mm3 (1.0-4.8); Lymph % (Auto) 9.3 % (9.0-44.0); Mean Corpuscular HGB Conc 33.3 % (32.0-36.0); Mean Corpuscular Hemoglobin 30.1 pg (27.0-34.0); Mean Corpuscular Volume 90.7 fL (80.0-100.0); Mean Platelet Volume 9.3 fL (7.0-11.0); Mono # (Auto) 0.7 th/mm3 (0.0-0.9); Mono % (Auto) 6.8 % (0.0-8.0); Neut % (Auto) 82.2 % (16.0-70.0); Platelet Count 187 th/mm3 (150-450); Red Blood Count 3.07 mil/mm3 (4.50-5.90); Red Cell Distribution Width 17.2 % (11.6-17.2); White Blood Count 9.7 th/mm3 (4.0-11.0)
[2018-06-13 05:41] LABS: Calcium 7.4 mg/dL (8.5-10.1); Carbon Dioxide 19.5 meq/L (21.0-32.0); Potassium 4.6 meq/L (3.5-5.1)
[2018-06-13 06:02] LABS: Albumin 1.6 g/dL (3.4-5.0); Calcium-Albumin Corrected 9.3 mg/dL (8.5-10.1)
[2018-06-13] MEDS: Chlorhexidine 0.12% Oral Kit 15 ML UDC OROPHARYNG SCH ×2 (08:41→20:56)
[2018-06-13] MEDS: Famotidine PF Inj 20 MG/2 ML Vial IV.PUSH SCH ×2 (09:59→20:55)
[2018-06-13] MEDS: Heparin - SQ 10,000 UNITS/ML Vial SQ SCH ×2 (09:59→20:54)
[2018-06-13] MEDS: Senna/Docusate Sodium 8.6/50 MG Tablet PO SCH ×2 (09:59→20:55)
--- NOTE | 2018-06-13 10:41 | P.PNOP ---
Subjective Interval history: Patient intubated and sedated. Physical Exam Vital signs: Vital Signs 06/12/18 11:00 06/12/18 11:30 06/12/18 12:00 Temperature 99.0 F Pulse Rate 84 79 95 H Respiratory Rate 26 H 26 H 30 H Blood Pressure 147/67 H 139/65 160/70 H Pulse Oximetry 100 100 97 06/12/18 12:27 06/12/18 12:30 06/12/18 12:41 Temperature Pulse Rate 89 92 H 83 Respiratory Rate Blood Pressure 169/80 H 167/78 H 128/58 L Pulse Oximetry 100 100 98 06/12/18 12:45 06/12/18 12:50 06/12/18 12:55 Temperature 97.9 F 97.7 F 97.7 F Pulse Rate 83 81 79 Respiratory Rate Blood Pressure 125/58 L 127/60 110/57 L Pulse Oximetry 98 98 97 06/12/18 13:00 06/12/18 13:05 06/12/18 13:10 Temperature 97.5 F L 97.5 F L 97.5 F L Pulse Rate 82 81 81 Respiratory Rate Blood Pressure 107/56 L 107/55 L 105/56 L Pulse Oximetry 99 100 99 06/12/18 13:15 06/12/18 13:20 06/12/18 13:25 Temperature 97.5 F L 97.3 F L Pulse Rate 81 79 79 Respiratory Rate Blood Pressure 100/56 L 100/54 L 107/57 L Pulse Oximetry 99 100 100 06/12/18 13:30 06/12/18 13:35 06/12/18 13:40 Temperature Pulse Rate 78 76 80 Respiratory Rate Blood Pressure 108/58 L 90/54 L 103/54 L Pulse Oximetry 100 100 100 06/12/18 13:45 06/12/18 13:50 06/12/18 14:00 Temperature Pulse Rate 81 81 80 Respiratory Rate 19 20 40 H Blood Pressure 110/55 L 119/57 L 132/63 Pulse Oximetry 96 97 93 L 06/12/18 14:09 06/12/18 15:00 06/12/18 15:09 Temperature Pulse Rate 79 79 75 Respiratory Rate 36 H 19 19 Blood Pressure 137/64 101/51 L Pulse Oximetry 98 99 99 06/12/18 16:00 06/12/18 16:09 06/12/18 17:00 Temperature 98.6 F Pulse Rate 65 65 73 Respiratory Rate 21 22 24 Blood Pressure 94/51 L Pulse Oximetry 100 100 100 06/12/18 17:02 06/12/18 17:09 06/12/18 18:00 Temperature Pulse Rate 78 77 Respiratory Rate 15 24 21 Blood Pressure 136/63 Pulse Oximetry 99 99 96 06/12/18 18:09 06/12/18 19:00 06/12/18 19:09 Temperature Pulse Rate 76 69 67 Respiratory Rate 21 20 21 Blood Pressure 119/56 L 103/51 L Pulse Oximetry 96 96 96 06/12/18 19:15 06/12/18 20:00 06/12/18 20:09 Temperature Pulse Rate 67 66 Respiratory Rate 21 10 L 17 Blood Pressure 100/53 L Pulse Oximetry 96 96 96 06/12/18 21:00 06/12/18 22:00 06/12/18 23:00 Temperature Pulse Rate 66 66 64 Respiratory Rate 21 19 20 Blood Pressure 103/52 L 98/55 L 104/52 L Pulse Oximetry 97 96 94 L 06/12/18 23:14 06/13/18 00:00 06/13/18 00:21 Temperature 98.2 F Pulse Rate 80 69 Respiratory Rate 20 26 H 22 Blood Pressure 97/53 L 91/49 L Pulse Oximetry 94 L 92 L 92 L 06/13/18 01:00 06/13/18 02:00 06/13/18 02:51 Temperature Pulse Rate 66 83 80 Respiratory Rate 21 20 22 Blood Pressure 100/53 L 101/52 L 120/59 L Pulse Oximetry 92 L 92 L 92 L 06/13/18 03:00 06/13/18 03:52 06/13/18 04:00 Temperature Pulse Rate 79 78 Respiratory Rate 21 20 21 Blood Pressure 115/58 L 108/58 L Pulse Oximetry 93 L 93 L 93 L 06/13/18 05:00 06/13/18 06:00 06/13/18 07:00 Temperature 99.0 F Pulse Rate 79 83 83 Respiratory Rate 20 20 21 Blood Pressure 115/59 L 108/58 L 112/55 L Pulse Oximetry 92 L 93 L 92 L 06/13/18 08:00 06/13/18 09:12 06/13/18 09:16 Temperature 99.6 F Pulse Rate 80 94 H Respiratory Rate 20 18 20 Blood Pressure 111/56 L 150/69 H Pulse Oximetry 92 L 98 99 Intake & Output 06/12/18 06/13/18 06/13/18 18:59 06:59 18:59 Intake Total 2235 / 2235 3114 / 3114 1000 / 1000 Output Total 1370 / 1370 930 / 930 Balance 865 / 865 2184 / 2184 1000 / 1000 Weight 139.3 kg Intake: IV 1405 / 1405 2100 / 2100 1000 / 1000 Diprivan 1000 mg/100 ml Inj 1, 100 / 100 100 / 100 000 mg In 100 ml @ 5 MCG/KG/MIN 3.972 mls/hr IV.CONT TITRATE PRN Rx#:[id number] 1/2 Normal Saline Inj 1,000 ML 1000 / 1000 2000 / 2000 1000 / 1000 @ 125 mls/hr IV.CONT .Q8H [facility] Rx#:[id number] Cubicin Inj 800 MG In NS Inj 100 / 100 100 ML @ 200 mls/hr IV.SIG ONCE ONE Rx#:[id number] INVanz Inj 1,000 MG In NS Inj 100 / 100 100 ML @ 200 mls/hr IV.SIG ONCE ONE Rx#:[id number] Keppra Inj 500 MG In NS Inj 100 105 / 105 ML @ 400 mls/hr IV.SIG Q12H [facility] Rx#:[id number] Oral 0 / 0 Tube Feeding 30 / 30 364 / 364 Tube Irrigant 150 / 150 150 / 150 Water Bolus Amount 200 / 200 500 / 500 Anesthesia Amount 450 / 450 Output: Estimated Blood Loss 25 / 25 Urine Amount (Catheter) 1325 / 1325 925 / 925 Indwelling Urethral Catheter 1325 / 1325 925 / 925 Wound Drainage / 20 5 / 5 # 1 Left Knee Hemovac 20 / 20 5 / 5 Other: Date of Last Bowel Movement 06/07/18 06/07/18 06/07/18 # Bowel Movements 0 0 Narrative: Left knee dressing and lillie wrap C/D/I hemovac drain in place - minimal bloody drainage calves soft - Urinary Catheter Management Indwelling Urethral Catheter Cath placed during this visit: yes Urethral indwelling: Yes Reason for continuing: Acute urinary retention Insertion date: 06/03/18 Insertion time: 03:00 Results - Labs CBC & Chem 7: 06/13/18 04:21 06/13/18 04:21 Laboratory Results - last 24 hr 06/12/18 06/12/18 06/12/18 13:53 17:27 20:45 WBC RBC Hgb Hct MCV MCH MCHC RDW Plt Count MPV Neut % (Auto) Lymph % (Auto) [place] % (Auto) Eos % (Auto) Baso % (Auto) Neut # (Auto) Lymph # (Auto) [place] # (Auto) Eos # (Auto) Baso # (Auto) WBC Differential Differential Comment Sodium Potassium Chloride Carbon Dioxide Anion Gap BUN Creatinine Estimated GFR POC Glucose 154 H 170 H 152 H Random Glucose Calcium Calcium Adj for Albumin Albumin 06/13/18 06/13/18 06/13/18 00:08 03:35 04:21 WBC 9.7 RBC 3.07 L Hgb 9.3 L Hct 27.8 L MCV 90.7 MCH 30.1 MCHC 33.3 RDW 17.2 Plt Count 187 MPV 9.3 Neut % (Auto) 82.2 H Lymph % (Auto) 9.3 Bremer % (Auto) 6.8 Eos % (Auto) 1.5 Baso % (Auto) 0.2 Neut # (Auto) 8.0 H Lymph # (Auto) 0.9 L Bremer # (Auto) 0.7 Eos # (Auto) 0.1 Baso # (Auto) 0.0 WBC Differential . Differential Comment Auto diff final Sodium Potassium Chloride Carbon Dioxide Anion Gap BUN Creatinine Estimated GFR POC Glucose 140 H 148 H Random Glucose Calcium Calcium Adj for Albumin Albumin 06/13/18 04:21 WBC RBC Hgb Hct MCV MCH MCHC RDW Plt Count MPV Neut % (Auto) Lymph % (Auto) [place] % (Auto) Eos % (Auto) Baso % (Auto) Neut # (Auto) Lymph # (Auto) [place] # (Auto) Eos # (Auto) Baso # (Auto) WBC Differential Differential Comment Sodium 153 H Potassium 4.6 Chloride 127 H Carbon Dioxide 19.5 L Anion Gap 7 BUN 72 H Creatinine 2.70 H Estimated GFR 24 L POC Glucose Random Glucose 142 H Calcium 7.4 L* Calcium Adj for Albumin 9.3 Albumin 1.6 L Microbiology 06/11/18 07:41 Blood - Peripheral Aerobic Blood Culture - Final S. aureus MRSA 06/11/18 07:41 Blood - Peripheral Anaerobic Blood Culture - Preliminary No growth in 1 day 06/10/18 06:20 Blood - Peripheral Aerobic Blood Culture - Final S. aureus MRSA 06/10/18 06:20 Blood - Peripheral Anaerobic Blood Culture - Preliminary No growth in 2 days 06/08/18 14:00 Blood - Peripheral Aerobic Blood Culture - Final S. aureus MRSA 06/08/18 14:00 Blood - Peripheral Anaerobic Blood Culture - Preliminary No growth in 4 days 06/08/18 05:54 Blood - Peripheral Aerobic Blood Culture - Final S. aureus MRSA 06/08/18 05:54 Blood - Peripheral Anaerobic Blood Culture - Preliminary No growth in 4 days 06/07/18 14:19 Blood - Peripheral Aerobic Blood Culture - Final S. aureus MRSA 06/07/18 14:19 Blood - Peripheral Anaerobic Blood Culture - Final No growth in 5 days Assessment and Plan - Assessment and Plan ICU management Continue IV abx therapy per ID Awaiting for final culture results Hemovac drain in place x 4 days No dressing changes Monitor
--- NOTE | 2018-06-13 11:23 | P.PNNS ---
Subjective Interval history: 06/03: Patient is a 68-year-old male with past medical history significant for type 2 diabetes, hypertension, morbid obesity who presented to the [facility] emergency department with weakness and slurred speech. Symptoms present for 2 days, apparently he was found on the floor of his mobile home. He was noted to have high fever at the [facility] his WBC count was 21.3 UA was positive. His sodium was 134 BUN 50 with a creatinine of 2.33 bicarb was 16 lactic acid was 6.8. CPK more than 3000 at the outside hospital. A CT of the head showed focal hemorrhage into the right quadrigeminal plate cistern. Dr. Hopkins was contacted who accepted the patient and requested admission to critical care. Patient was accepted to [facility] at [place] Dr. Deluca evaluated the patient in the [facility], he is lying in the bed. Slightly tachypneic moderate distress. Patient is oriented to place and person. CT of the head repeated here at [facility] showed hemorrhage along the posterior aspect of the brainstem measuring up to 2.8 cm in maximal diameter. Mild mass effect on the brainstem. No hydrocephalus. I have started the patient on Cardene infusion for tight blood pressure control. Zosyn for UTI. 2% saline will be started to keep sodium above 150. Avoid mannitol due to renal failure. Keppra for seizure prophylaxis. I am unable to find coags but platelet count was normal. 06/04: MRSA bacteremia ob blood cultures drawn on admission. Currently on precedex, on room air. Awake, follows commands, speech, unintelligible. Started on IV vanc. ID consulted as concern for septic emboli/ endocarditis as cause for brainstem bleed. 06/05: 48 hours following a mid brain spontaneous hemorrhage complicated by numerous MRSA blood cultures. Blood pressure acceptably well controlled. Fever pattern persists. Patient tolerating extubation and protecting airway adequately. Taper completely off Precedex. Serum osmolality acceptably concentrated. 06/06: Serum osmolality acceptable, will allow sodium to drift back into the lower 150s now. Patient is alert and interactive. He moves 4 limbs spontaneously. Episodic fevers to 102+. We will continue with infectious disease workup for source of bacteremia. Endocarditis remains high on the list of possibilities. 06/07: Awake, alert, following commands. Speech very slurred however responds appropriately. Slight disorientation. Thought he was in [place]. Knows he is in the hospital. Complains of back pain. 06/08: Drowsy, arousable, tachypneic. Sodium up to 163, started on D5W and free water. Creatinine up. Tolerating tube feeds. Awaiting MRI. Will need LAURIE. Will need intubation probably for airway and in order to transport for MRI and LAURIE. 06/09: Patient intubated and placed on mechanical ventilation on 06/09. Dr. Hopkins has cleared patient for LAURIE/anticoagulation/valve surgery if needed. We are awaiting LAURIE for further evaluation of MRSA bacteremia by cardiology to determine source. Orthopedics evaluating left knee synovitis/effusion/meniscal tear. 06/10: Underwent aspiration of the left knee yesterday which is growing MRSA. Remains sedated, orally intubated on mechanical ventilation. Underwent LAURIE today which did not reveal any vegetation. Being followed by orthopedics/ID/ neurosurgery. 06/11: Remains orally intubated on mechanical ventilation. Scheduled for OR for left knee septic arthritis with Dr. Carlson. 06/12: Remains orally intubated on mechanical ventilation. Went to OR for wound debridemnt with Ortho Physical Exam Vital signs: Vital Signs 06/12/18 11:30 06/12/18 12:00 06/12/18 12:27 Temperature 99.0 F Pulse Rate 79 95 H 89 Respiratory Rate 26 H 30 H Blood Pressure 139/65 160/70 H 169/80 H Pulse Oximetry 100 97 100 06/12/18 12:30 06/12/18 12:41 06/12/18 12:45 Temperature 97.9 F Pulse Rate 92 H 83 83 Respiratory Rate Blood Pressure 167/78 H 128/58 L 125/58 L Pulse Oximetry 100 98 98 06/12/18 12:50 06/12/18 12:55 06/12/18 13:00 Temperature 97.7 F 97.7 F 97.5 F L Pulse Rate 81 79 82 Respiratory Rate Blood Pressure 127/60 110/57 L 107/56 L Pulse Oximetry 98 97 99 06/12/18 13:05 06/12/18 13:10 06/12/18 13:15 Temperature 97.5 F L 97.5 F L 97.5 F L Pulse Rate 81 81 81 Respiratory Rate Blood Pressure 107/55 L 105/56 L 100/56 L Pulse Oximetry 100 99 99 06/12/18 13:20 06/12/18 13:25 06/12/18 13:30 Temperature 97.3 F L Pulse Rate 79 79 78 Respiratory Rate Blood Pressure 100/54 L 107/57 L 108/58 L Pulse Oximetry 100 100 100 06/12/18 13:35 06/12/18 13:40 06/12/18 13:45 Temperature Pulse Rate 76 80 81 Respiratory Rate 19 Blood Pressure 90/54 L 103/54 L 110/55 L Pulse Oximetry 100 100 96 06/12/18 13:50 06/12/18 14:00 06/12/18 14:09 Temperature Pulse Rate 81 80 79 Respiratory Rate 20 40 H 36 H Blood Pressure 119/57 L 132/63 137/64 Pulse Oximetry 97 93 L 98 06/12/18 15:00 06/12/18 15:09 06/12/18 16:00 Temperature 98.6 F Pulse Rate 79 75 65 Respiratory Rate 19 19 21 Blood Pressure 101/51 L Pulse Oximetry 99 99 100 06/12/18 16:09 06/12/18 17:00 06/12/18 17:02 Temperature Pulse Rate 65 73 Respiratory Rate 22 24 15 Blood Pressure 94/51 L Pulse Oximetry 100 100 99 06/12/18 17:09 06/12/18 18:00 06/12/18 18:09 Temperature Pulse Rate 78 77 76 Respiratory Rate 24 21 21 Blood Pressure 136/63 119/56 L Pulse Oximetry 99 96 96 06/12/18 19:00 06/12/18 19:09 06/12/18 19:15 Temperature Pulse Rate 69 67 Respiratory Rate 20 21 21 Blood Pressure 103/51 L Pulse Oximetry 96 96 96 06/12/18 20:00 06/12/18 20:09 06/12/18 21:00 Temperature Pulse Rate 67 66 66 Respiratory Rate 10 L 17 21 Blood Pressure 100/53 L 103/52 L Pulse Oximetry 96 96 97 06/12/18 22:00 06/12/18 23:00 06/12/18 23:14 Temperature Pulse Rate 66 64 Respiratory Rate 19 20 20 Blood Pressure 98/55 L 104/52 L Pulse Oximetry 96 94 L 94 L 06/13/18 00:00 06/13/18 00:21 06/13/18 01:00 Temperature 98.2 F Pulse Rate 80 69 66 Respiratory Rate 26 H 22 21 Blood Pressure 97/53 L 91/49 L 100/53 L Pulse Oximetry 92 L 92 L 92 L 06/13/18 02:00 06/13/18 02:51 06/13/18 03:00 Temperature Pulse Rate 83 80 79 Respiratory Rate 20 22 21 Blood Pressure 101/52 L 120/59 L 115/58 L Pulse Oximetry 92 L 92 L 93 L 06/13/18 03:52 06/13/18 04:00 06/13/18 05:00 Temperature 99.0 F Pulse Rate 78 79 Respiratory Rate 20 21 20 Blood Pressure 108/58 L 115/59 L Pulse Oximetry 93 L 93 L 92 L 06/13/18 06:00 06/13/18 07:00 06/13/18 08:00 Temperature 99.6 F Pulse Rate 83 83 80 Respiratory Rate 20 21 20 Blood Pressure 108/58 L 112/55 L 111/56 L Pulse Oximetry 93 L 92 L 92 L 06/13/18 09:12 06/13/18 09:16 Temperature Pulse Rate 94 H Respiratory Rate 18 20 Blood Pressure 150/69 H Pulse Oximetry 98 99 Intake & Output 06/12/18 06/13/18 06/13/18 18:59 06:59 18:59 Intake Total 2235 / 2235 3114 / 3114 1000 / 1000 Output Total 1370 / 1370 930 / 930 Balance 865 / 865 2184 / 2184 1000 / 1000 Weight 139.3 kg Intake: IV 1405 / 1405 2100 / 2100 1000 / 1000 Diprivan 1000 mg/100 ml Inj 1, 100 / 100 100 / 100 000 mg In 100 ml @ 5 MCG/KG/MIN 3.972 mls/hr IV.CONT TITRATE PRN Rx#:[id number] 1/2 Normal Saline Inj 1,000 ML 1000 / 1000 2000 / 2000 1000 / 1000 @ 125 mls/hr IV.CONT .Q8H [facility] Rx#:[id number] Cubicin Inj 800 MG In NS Inj 100 / 100 100 ML @ 200 mls/hr IV.SIG ONCE ONE Rx#:[id number] INVanz Inj 1,000 MG In NS Inj 100 / 100 100 ML @ 200 mls/hr IV.SIG ONCE ONE Rx#:[id number] Keppra Inj 500 MG In NS Inj 100 105 / 105 ML @ 400 mls/hr IV.SIG Q12H [facility] Rx#:[id number] Oral 0 / 0 Tube Feeding 30 / 30 364 / 364 Tube Irrigant 150 / 150 150 / 150 Water Bolus Amount 200 / 200 500 / 500 Anesthesia Amount 450 / 450 Output: Estimated Blood Loss 25 / 25 Urine Amount (Catheter) 1325 / 1325 925 / 925 Indwelling Urethral Catheter 1325 / 1325 925 / 925 Wound Drainage 5 # 1 Left Knee Hemovac 5 Other: Date of Last Bowel Movement 06/07/18 06/07/18 06/07/18 # Bowel Movements 0 0 - Constitutional obtunded - Routine HEENT Exam Head: Present: normocephalic, atraumatic Eye: Present: PERRL - Routine Neck Exam Present: supple, normal carotid upstroke - Routine Respiratory Exam Present: patient mechanically ventilated, rhonchi, wheezes - Routine Abdominal Exam Present: soft, normoactive bowel sounds - Routine Skin Exam Present: intact - Routine Neurological Exam Neuro: Eyes do not open to deep pain Pupils react Flexes to deep painful stimulus with Left > Right. - Detailed Neurological Exam: Coma Scale Eye Opening: None Verbal Response: None Motor Response: Abnormal flexion [place] Coma Scale Total: 5 - Urinary Catheter Management Indwelling Urethral Catheter Cath placed during this visit: yes Urethral indwelling: Yes Reason for continuing: Acute urinary retention Insertion date: 06/03/18 Insertion time: 03:00 Assessment and Plan - Plan 68 year old male with basal ganglia/brainstem hemorrhage, ? [id number] hemorrhage. Stable GCS-5T Septicemia, Bacteremia, with (1) 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 Status: Acute (2) Encephalopathy acute Code(s): G93.40 - Encephalopathy, unspecified Status: Acute (3) Acute kidney failure Code(s): N17.9 - Acute kidney failure, unspecified Status: Acute (4) Severe sepsis Code(s): A41.9 - Sepsis, unspecified organism; R65.20 - Severe sepsis without septic shock Status: Acute (5) Metabolic acidemia Code(s): E87.2 - Acidosis Status: Acute (6) UTI (urinary tract infection) Code(s): N39.0 - Urinary tract infection, site not specified Status: Acute (7) Lactic acidosis Code(s): E87.2 - Acidosis Status: Acute (8) Rhabdomyolysis Code(s): M62.82 - Rhabdomyolysis Status: Acute (9) Obesity Code(s): E66.9 - Obesity, unspecified Status: Chronic (10) Hypertension Code(s): I10 - Essential (primary) hypertension Status: Chronic (11) Diabetes Code(s): E11.9 - Type 2 diabetes mellitus without complications Status: Chronic Head CT 06/08/18 00:00 CONCLUSION: 1. Resolving subarachnoid hemorrhage. No acute hemorrhage is identified. Cervical Spine MRI 06/08/18 07:09 CONCLUSION: 1. Increased signal anterior to the C6-C7 disc level and between the prominent anterior marginal osteophytes. The anterior longitudinal ligament is not seen. This could be the sequela of an injury in this region. The remaining aspect of the disc is intact. The vertebral bodies demonstrate normal signal. Prevertebral soft tissue swelling is not seen. This could be chronic. Fluid resembling a pseudarthrosis can also develop between osteophytes potentially. The remaining soft tissues appear intact. 2. Mild left lateral recess disc protrusion at the C2-C3 level. 3. Mild central disc protrusion at the C3-C4 level. 4. Mild disc bulge at the C5-C6 level and minimal disc bulge at the C4-C5 level. 5. Scattered neural foraminal narrowing as described above. Lumbar Spine MRI 06/08/18 07:09 CONCLUSION: 1. Severe stenosis at the L4-L5 level. 2. Moderate stenosis at the L2-L3 level. 3. Minimal disc bulge at the L1-L2 level with a small inferiorly directed extruded disc fragment at the right side. Significant stenosis is not seen at this level. 4. No focal fluid collection is identified. Thoracic Spine MRI 06/08/18 07:09 CONCLUSION: 1. Limited, noncontrast examination with no evidence of abscess. 2. Small posterior central protrusion at T5-6 with mild flattening of the anterior cord. 3. Posterior disc bulge at T6-7 with mild flattening of the anterior thecal sac. Neuro: neuro checks. No neurological changes Pulmonary: Continue mechanical ventilation, pulmonary toilette, nasotracheal suction, and breathing treatments with nebulizers. Lactic acidemia Hypotension History of hypertension -Lactic acid at the outside hospital was 6.8 -Normal saline IV fluids, transthoracic echo -Continue IV fluids. Change to half NS due to hyponatremia -Hold all antihypertensives due to borderline blood pressure following intubation. - cardiology Dr. Odonnell consulted to perform LAURIE to evaluate for endocarditis Renal: Acute kidney injury with creatinine of 3.50. HCO3 at 20.6. Non oliguric. Continue to monitor closely urine output, BUN and creatinine Endocrine: Diabetes. Continue to Monitor serial Acu checks and SSI as needed in detail Severe sepsis ESBL E. coli UTI MRSA bacteremia MRSA left knee septic arthritis -On Cubicin. -Cefepime changed to Invanz on 06/10 for ESBL E. coli in urine culture -Vancomycin and gentamicin discontinued on 06/08 per ID due to worsening renal function Blood cultures positive for MRSA (10/07) -ID consulted-Dr. Rodriguez -LAURIE negative for vegetation on 06/10 -s/p MRI left knee due to swelling -orthopedics performed left knee aspiration on 06/09 with drainage of 60 cc of purulent cloudy fluid which is growing MRSA. Plan: Continue present management Will continue to follow
--- NOTE | 2018-06-13 15:22 | P.PNNP ---
Subjective Interval history: Patient treated for MRSA left knee Physical Exam Vital signs: Vital Signs 06/12/18 16:00 06/12/18 16:09 06/12/18 17:00 Temperature 98.6 F Pulse Rate 65 65 73 Respiratory Rate 21 22 24 Blood Pressure 94/51 L Pulse Oximetry 100 100 100 06/12/18 17:02 06/12/18 17:09 06/12/18 18:00 Temperature Pulse Rate 78 77 Respiratory Rate 15 24 21 Blood Pressure 136/63 Pulse Oximetry 99 99 96 06/12/18 18:09 06/12/18 19:00 06/12/18 19:09 Temperature Pulse Rate 76 69 67 Respiratory Rate 21 20 21 Blood Pressure 119/56 L 103/51 L Pulse Oximetry 96 96 96 06/12/18 19:15 06/12/18 20:00 06/12/18 20:09 Temperature Pulse Rate 67 66 Respiratory Rate 21 10 L 17 Blood Pressure 100/53 L Pulse Oximetry 96 96 96 06/12/18 21:00 06/12/18 22:00 06/12/18 23:00 Temperature Pulse Rate 66 66 64 Respiratory Rate 21 19 20 Blood Pressure 103/52 L 98/55 L 104/52 L Pulse Oximetry 97 96 94 L 06/12/18 23:14 06/13/18 00:00 06/13/18 00:21 Temperature 98.2 F Pulse Rate 80 69 Respiratory Rate 20 26 H 22 Blood Pressure 97/53 L 91/49 L Pulse Oximetry 94 L 92 L 92 L 06/13/18 01:00 06/13/18 02:00 06/13/18 02:51 Temperature Pulse Rate 66 83 80 Respiratory Rate 21 20 22 Blood Pressure 100/53 L 101/52 L 120/59 L Pulse Oximetry 92 L 92 L 92 L 06/13/18 03:00 06/13/18 03:52 06/13/18 04:00 Temperature Pulse Rate 79 78 Respiratory Rate 21 20 21 Blood Pressure 115/58 L 108/58 L Pulse Oximetry 93 L 93 L 93 L 06/13/18 05:00 06/13/18 06:00 06/13/18 07:00 Temperature 99.0 F Pulse Rate 79 83 83 Respiratory Rate 20 20 21 Blood Pressure 115/59 L 108/58 L 112/55 L Pulse Oximetry 92 L 93 L 92 L 06/13/18 08:00 06/13/18 09:12 06/13/18 09:16 Temperature 99.6 F Pulse Rate 80 94 H Respiratory Rate 20 18 20 Blood Pressure 111/56 L 150/69 H Pulse Oximetry 92 L 98 99 06/13/18 10:00 06/13/18 11:00 06/13/18 12:00 Temperature 99.8 F H 99.8 F H Pulse Rate 89 88 87 Respiratory Rate 20 20 20 Blood Pressure 126/60 132/60 139/62 Pulse Oximetry 95 94 L 94 L 06/13/18 12:15 06/13/18 13:00 06/13/18 14:00 Temperature Pulse Rate 83 82 Respiratory Rate 22 23 24 Blood Pressure 128/59 L 132/63 Pulse Oximetry 94 L 94 L 94 L Intake & Output 06/12/18 06/13/18 06/13/18 18:59 06:59 18:59 Intake Total 2235 / 2235 3114 / 3114 1100 / 1100 Output Total 1370 / 1370 930 / 930 Balance 865 / 865 2184 / 2184 1100 / 1100 Weight 139.3 kg Intake: IV 1405 / 1405 2100 / 2100 1100 / 1100 Diprivan 1000 mg/100 ml Inj 1, 100 / 100 100 / 100 000 mg In 100 ml @ 5 MCG/KG/MIN 3.972 mls/hr IV.CONT TITRATE PRN Rx#:[id number] 1/2 Normal Saline Inj 1,000 ML 1000 / 1000 2000 / 2000 1000 / 1000 @ 125 mls/hr IV.CONT .Q8H [facility] Rx#:[id number] Cubicin Inj 800 MG In NS Inj 100 / 100 100 ML @ 200 mls/hr IV.SIG ONCE ONE Rx#:[id number] INVanz Inj 1,000 MG In NS Inj 100 / 100 100 / 100 100 ML @ 200 mls/hr IV.SIG Q24H [facility] Rx#:[id number] Keppra Inj 500 MG In NS Inj 100 105 / 105 ML @ 400 mls/hr IV.SIG Q12H [facility] Rx#:[id number] Oral 0 / 0 Tube Feeding 30 / 30 364 / 364 Tube Irrigant 150 / 150 150 / 150 Water Bolus Amount 200 / 200 500 / 500 Anesthesia Amount 450 / 450 Output: Estimated Blood Loss 25 / 25 Urine Amount (Catheter) 1325 / 1325 925 / 925 Indwelling Urethral Catheter 1325 / 1325 925 / 925 Wound Drainage # 1 Left Knee Hemovac Other: Date of Last Bowel Movement 06/07/18 06/07/18 06/07/18 # Bowel Movements 0 0 Narrative: GENERAL: Well-nourished, well-developed intubated patient. SKIN: Warm and dry. HEAD: Normocephalic. EYES: No scleral icterus. No injection or drainage. NECK: Supple, trachea midline. No JVD or lymphadenopathy. CARDIOVASCULAR: Regular rate and rhythm without murmurs, gallops, or rubs. RESPIRATORY: Breath sounds equal bilaterally. No accessory muscle use. GASTROINTESTINAL: Abdomen soft, non-tender, nondistended. EXTREMITIES: Edema left knee is wrapped to 2+ edema NEUROLOGICAL: Intubated and sedated - Urinary Catheter Management Indwelling Urethral Catheter Cath placed during this visit: yes Urethral indwelling: Yes Reason for continuing: Acute urinary retention Insertion date: 06/03/18 Insertion time: 03:00 Assessment and Plan - Assessment (1) Acute kidney failure Code(s): N17.9 - Acute kidney failure, unspecified Status: Acute Plan: Acute kidney injury with creatinine of 3.50. HCO3 at 20.6. Non oliguric. On admission creatinine was noted to be 1.56 CT on abdomen with no acute findings. Bilateral renal cysts noted. Patient may have some chronic kidney disease but baseline creatinine is not known. Proteinuria noted in urine. Creatinine started to increase on the 4th at 2.86. NIKKI with FeNA at 2.35 suggestive of ATN possibly from sepsis or contrast nephropathy. AIN in differential also with vancomycin/gentamicin levels elevated on the 4th. SPEP negative immunology pending C3 mildly low, C4 normal. Creatinine has improved at 2.7 from 2.9, with good urinary output. immunology pending. Recommend to continue IVF as patient tolerates. Patient is growing MRSA and avoid nephrotoxins as possible. Change IV fluid to one fourth of saline and sodium 153 will follow urinary output and labs. Labs in AM
--- NOTE | 2018-06-13 16:04 | P.PNCC ---
Subjective Subjective Remarks/Hospital Course: 06/03: Patient is a 68-year-old male with past medical history significant for type 2 diabetes, hypertension, morbid obesity who presented to the [facility] emergency department with weakness and slurred speech. Symptoms present for 2 days, apparently he was found on the floor of his mobile home. He was noted to have high fever at the [facility] his WBC count was 21.3 UA was positive. His sodium was 134 BUN 50 with a creatinine of 2.33 bicarb was 16 lactic acid was 6.8. CPK more than 3000 at the outside hospital. A CT of the head showed focal hemorrhage into the right quadrigeminal plate cistern. Dr. Hopkins was contacted who accepted the patient and requested admission to critical care. Patient was accepted to [facility] at [place] Dr. Deluca evaluated the patient in the [facility], he is lying in the bed. Slightly tachypneic moderate distress. Patient is oriented to place and person. CT of the head repeated here at [place] showed hemorrhage along the posterior aspect of the brainstem measuring up to 2.8 cm in maximal diameter. Mild mass effect on the brainstem. No hydrocephalus. I have started the patient on Cardene infusion for tight blood pressure control. Zosyn for UTI. 2% saline will be started to keep sodium above 150. Avoid mannitol due to renal failure. Keppra for seizure prophylaxis. I am unable to find coags but platelet count was normal. 06/04: MRSA bacteremia ob blood cultures drawn on admission. Currently on precedex, on room air. Awake, follows commands, speech, unintelligible. Started on IV vanc. ID consulted as concern for septic emboli/ endocarditis as cause for brainstem bleed. 06/05: 48 hours following a mid brain spontaneous hemorrhage complicated by numerous MRSA blood cultures. Blood pressure acceptably well controlled. Fever pattern persists. Patient tolerating extubation and protecting airway adequately. Taper completely off Precedex. Serum osmolality acceptably concentrated. 06/06: Serum osmolality acceptable, will allow sodium to drift back into the lower 150s now. Patient is alert and interactive. He moves 4 limbs spontaneously. Episodic fevers to 102+. We will continue with infectious disease workup for source of bacteremia. Endocarditis remains high on the list of possibilities. 06/07: Awake, alert, following commands. Speech very slurred however responds appropriately. Slight disorientation. Thought he was in [place]. Knows he is in the hospital. Complains of back pain. 06/08: Drowsy, arousable, tachypneic. Sodium up to 163, started on D5W and free water. Creatinine up. Tolerating tube feeds. Awaiting MRI. Will need LAURIE. Will need intubation probably for airway and in order to transport for MRI and LAURIE. 06/09: Patient intubated and placed on mechanical ventilation on 06/09. Dr. Hopkins has cleared patient for LAURIE/anticoagulation/valve surgery if needed. We are awaiting LAURIE for further evaluation of MRSA bacteremia by cardiology to determine source. Orthopedics evaluating left knee synovitis/effusion/meniscal tear. 06/10: Underwent aspiration of the left knee yesterday which is growing MRSA. Remains sedated, orally intubated on mechanical ventilation. Underwent LAURIE today which did not reveal any vegetation. Being followed by orthopedics/ID/ neurosurgery. 06/11: Remains orally intubated on mechanical ventilation. Scheduled for OR for left knee septic arthritis with Dr. Carlson. 06/12: Remains orally intubated on mechanical ventilation. Waiting for OR for left knee septic arthritis with Dr. Carlson 06/13: Remains intubated sedated. On sedation hold localizes to pain. Status post left knee lateral arthrotomy with irrigation and debridement. Fluid culture growing MRSA Objective Vital Signs / I&O: Vital Signs 06/12/18 16:00 06/12/18 16:09 06/12/18 17:00 Temperature 98.6 F Pulse Rate 65 65 73 Respiratory Rate 21 22 24 Blood Pressure 94/51 L Pulse Oximetry 100 100 100 06/12/18 17:02 06/12/18 17:09 06/12/18 18:00 Temperature Pulse Rate 78 77 Respiratory Rate 15 24 21 Blood Pressure 136/63 Pulse Oximetry 99 99 96 06/12/18 18:09 06/12/18 19:00 06/12/18 19:09 Temperature Pulse Rate 76 69 67 Respiratory Rate 21 20 21 Blood Pressure 119/56 L 103/51 L Pulse Oximetry 96 96 96 06/12/18 19:15 06/12/18 20:00 06/12/18 20:09 Temperature Pulse Rate 67 66 Respiratory Rate 21 10 L 17 Blood Pressure 100/53 L Pulse Oximetry 96 96 96 06/12/18 21:00 06/12/18 22:00 06/12/18 23:00 Temperature Pulse Rate 66 66 64 Respiratory Rate 21 19 20 Blood Pressure 103/52 L 98/55 L 104/52 L Pulse Oximetry 97 96 94 L 06/12/18 23:14 06/13/18 00:00 06/13/18 00:21 Temperature 98.2 F Pulse Rate 80 69 Respiratory Rate 20 26 H 22 Blood Pressure 97/53 L 91/49 L Pulse Oximetry 94 L 92 L 92 L 06/13/18 01:00 06/13/18 02:00 06/13/18 02:51 Temperature Pulse Rate 66 83 80 Respiratory Rate 21 20 22 Blood Pressure 100/53 L 101/52 L 120/59 L Pulse Oximetry 92 L 92 L 92 L 06/13/18 03:00 06/13/18 03:52 06/13/18 04:00 Temperature Pulse Rate 79 78 Respiratory Rate 21 20 21 Blood Pressure 115/58 L 108/58 L Pulse Oximetry 93 L 93 L 93 L 06/13/18 05:00 06/13/18 06:00 06/13/18 07:00 Temperature 99.0 F Pulse Rate 79 83 83 Respiratory Rate 20 20 21 Blood Pressure 115/59 L 108/58 L 112/55 L Pulse Oximetry 92 L 93 L 92 L 06/13/18 08:00 06/13/18 09:12 06/13/18 09:16 Temperature 99.6 F Pulse Rate 80 94 H Respiratory Rate 20 18 20 Blood Pressure 111/56 L 150/69 H Pulse Oximetry 92 L 98 99 06/13/18 10:00 06/13/18 11:00 06/13/18 12:00 Temperature 99.8 F H 99.8 F H Pulse Rate 89 88 87 Respiratory Rate 20 20 20 Blood Pressure 126/60 132/60 139/62 Pulse Oximetry 95 94 L 94 L 06/13/18 12:15 06/13/18 13:00 06/13/18 14:00 Temperature Pulse Rate 83 82 Respiratory Rate 22 23 24 Blood Pressure 128/59 L 132/63 Pulse Oximetry 94 L 94 L 94 L Intake & Output 06/12/18 06/13/18 06/13/18 18:59 06:59 18:59 Intake Total 2235 / 2235 3114 / 3114 1100 / 1100 Output Total 1370 / 1370 930 / 930 Balance 865 / 865 2184 / 2184 1100 / 1100 Weight 139.3 kg Intake: IV 1405 / 1405 2100 / 2100 1100 / 1100 Diprivan 1000 mg/100 ml Inj 1, 100 / 100 100 / 100 000 mg In 100 ml @ 5 MCG/KG/MIN 3.972 mls/hr IV.CONT TITRATE PRN Rx#:[id number] 1/2 Normal Saline Inj 1,000 ML 1000 / 1000 2000 / 2000 1000 / 1000 @ 125 mls/hr IV.CONT .Q8H [facility] Rx#:[id number] Cubicin Inj 800 MG In NS Inj 100 / 100 100 ML @ 200 mls/hr IV.SIG ONCE ONE Rx#:[id number] INVanz Inj 1,000 MG In NS Inj 100 / 100 100 / 100 100 ML @ 200 mls/hr IV.SIG Q24H [facility] Rx#:[id number] Keppra Inj 500 MG In NS Inj 100 105 / 105 ML @ 400 mls/hr IV.SIG Q12H [facility] Rx#:[id number] Oral 0 / 0 Tube Feeding 30 / 30 364 / 364 Tube Irrigant 150 / 150 150 / 150 Water Bolus Amount 200 / 200 500 / 500 Anesthesia Amount 450 / 450 Output: Estimated Blood Loss 25 / 25 Urine Amount (Catheter) 1325 / 1325 925 / 925 Indwelling Urethral Catheter 1325 / 1325 925 / 925 Wound Drainage 5 # 1 Left Knee Hemovac 5 Other: Date of Last Bowel Movement 06/07/18 06/07/18 06/07/18 # Bowel Movements 0 0 Result Diagrams: 06/13/18 04:21 06/13/18 04:21 Objective Remarks: GENERAL: 68-year-old male lying in ICU bed , encephalopathic, orally intubated on mechanical ventilation SKIN: Focused skin assessment warm/dry. HEAD: Atraumatic. Normocephalic. EYES: Pupils equal and round. No scleral icterus. No injection or drainage. ENT: No nasal bleeding or discharge. ET tube in place, oral cavity dry. Trachea midline. CARDIOVASCULAR: Normal S1-S2. No murmurs. Regular rate and rhythm. No venous distention. RESPIRATORY: Orally intubated on mechanical ventilation, air entry decreased bilaterally at bases, few rhonchi, no adventitious sounds GASTROINTESTINAL: Abdomen soft, non-tender, nondistended. BS present. No guarding. MUSCULOSKELETAL: Warm, well perfused. Left knee Hemovac drain in place NEUROLOGICAL: Encephalopathic/sedated, orally intubated, Pupils equal 3mm, reactive, orally intubated on mechanical ventilation. On sedation hold patient localizes to pain. Assessment and Plan - Problem List (1) 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 Status: Acute (2) Encephalopathy acute Code(s): G93.40 - Encephalopathy, unspecified Status: Acute (3) Acute kidney failure Code(s): N17.9 - Acute kidney failure, unspecified Status: Acute (4) Severe sepsis Code(s): A41.9 - Sepsis, unspecified organism; R65.20 - Severe sepsis without septic shock Status: Acute (5) Metabolic acidemia Code(s): E87.2 - Acidosis Status: Acute (6) UTI (urinary tract infection) Code(s): N39.0 - Urinary tract infection, site not specified Status: Acute (7) Lactic acidosis Code(s): E87.2 - Acidosis Status: Acute (8) Rhabdomyolysis Code(s): M62.82 - Rhabdomyolysis Status: Acute (9) Obesity Code(s): E66.9 - Obesity, unspecified Status: Chronic (10) Hypertension Code(s): I10 - Essential (primary) hypertension Status: Chronic (11) Diabetes Code(s): E11.9 - Type 2 diabetes mellitus without complications Status: Chronic - Assessment and Plan Plan: NEURO: Brainstem hemorrhage measuring up to 2.8 cm in maximal diameter, mild mass effect Acute encephalopathy -Repeat CT findings as above -Neurosurgery Dr. Hopkins consulted and following -Off 2% saline. Currently on free water/D5W for hypernatremia -Close neuro monitoring. MRI/MRA brain results noted -Repeat head CT 06/08 shows resolving brainstem hemorrhage. -Keppra for seizure prophylaxis -With MRSA bacteremia suspect septic emboli with mycotic aneurism vs hypertensive bleed. -More encephalopathic, intubated for airway protection. Propofol/ Precedex gtt for sedation following intubation with daily sedation vacation. -MRI spine reviewed, no evidence of epidural abscess RESP: Acute resp failure on mechanical ventilation Past smoking -DuoNeb every as needed -Continue mechanical ventilation, vent bundle, bronchodilators as needed -Await improvement in neurologic status prior to deciding extubation. Daily CPAP trials. CV: Lactic acidemia Hypotension History of hypertension -Initial lactic acid at the outside hospital was 6.8 -Normal saline IV fluids, transthoracic echo -half NS due to hyponatremia -Cardiology Dr. Odonnell consulted to perform LAURIE to evaluate for endocarditis -LAURIE performed on 06/10- for any vegetations. GI: -NG tube in place. Tube feeds and advance to goal as tolerated. : Acute kidney injury Rhabdomyolysis -Monitor renal function closely. Continue [place] catheter. -Strict intake output, monitor and replete electrolytes. -Nephrology consulted for rising creatinine-suspect multifactorial secondary to sepsis/vancomycin/gentamicin toxicity/IV contrast exposure. ID: Severe sepsis ESBL E. coli UTI MRSA bacteremia MRSA left knee septic arthritis -On Cubicin. Cefepime changed to Invanz on 06/10 for ESBL E. coli in urine culture -Status post left knee lateral arthrotomy with irrigation and debridement. Fluid culture growing MRSA -Vancomycin and gentamicin discontinued on 06/08 per ID due to worsening renal function. Blood cultures positive for MRSA (10/07) -ID consulted-Dr. Rodriguez -LAURIE negative for vegetation on 06/10 -s/p MRI left knee due to swelling -orthopedics performed left knee aspiration on 06/09 with drainage of 60 cc of purulent cloudy fluid which is growing MRSA. -Ortho following and to decide further management for left knee septic arthritis - HEME: Leukocytosis secondary to sepsis -Monitor CBC, coags ENDO: Type 2 diabetes -Sliding scale insulin -Basal long-acting insulin PROPH: -Bilateral lower extremity SCDs. IV famotidine. Subcutaneous heparin for DVT prophylaxis which was cleared by neurosurgery. LINES: -Utilize peripheral IVs, central line if needed Overall impression: Blood pressure control remains problematic and will need additional scheduled medication. Agitation appears better controlled. Bacteremia remains crucial and possibly life-threatening problem 06/08: D/W Dr. Hopkins. Called patient's son Abraham Bautista at [phone] and updated him regarding current clinical status and plan to intubate and place on mech ventilation due to concern regarding airway protection and in order to safely get imaging and possibly LAURIE and he voiced understanding and was agreeable. 06/09: Discussed with ID, discussed with Dr. Hopkins. Awaiting LAURIE. Start tube feeds after LAURIE 12/6, !2/7: D/W ID condition critical. time spent on critical care excluding procedures: 30 min (1) Brain stem hemorrhage Qualifiers: Intracerebral hemorrhage etiology: nontraumatic
[2018-06-13] MEDS: Sodium Chloride 23.4% Inj 38.5 MEQ in Water for Inj, Sterile 1,000 ML IV.CONT SCH (16:32)
--- NOTE | 2018-06-13 17:38 | P.PNID ---
Subjective Remarks: ESPERANZA moreno for Patient is a 68-year-old male, brought into the hospital initially at [facility] for evaluation of weakness and slurred speech. It apparently has been present for several days. He was found on the floor of his mobile home. At [facility] he was found to be febrile, WBC up to 21,000, urinalysis with pyuria, creatinine 2.33, and lactic acid was elevated. CT of the head showed focal hemorrhage in the posterior fossa. Patient was transferred to [facility] for neurosurgical evaluation. Patient since admission has had elevated temperature. His blood cultures done on admission are now reported as growing gram-positive cocci, MRSA. His urine culture is also growing MRSA. On evaluation in the intensive care unit, he is awake, and interactive. He looks slightly tachypneic at rest and and on nasal O2. He has some confusion but mostly his oriented. His chest x-ray is normal. Echo is showing calcification in the aortic valve. No vegetations seen. Infectious disease consultation has been requested to assist with evaluation and treatment of patient with MRSA bacteremia. Notes reviewed, dale RN s/p IND left knee, drain in place with sanguinous discharge. Sedated on the vent LAURIE no vegetation seen Remains intubated Not on pressors. No rash No diarrhea Antibiotics: Cubicin Lines: PIV Past Medical History: Diabetes History of MRSA infection Onset Date: ~06/03/18 Hypertension Obesity UTI (urinary tract infection) Allergies/Adverse Reactions: Allergies No Known Allergies Allergy (Verified 06/03/18 01:32) Objective Vital Signs 06/12/18 18:00 06/12/18 18:09 06/12/18 19:00 Temperature Pulse Rate 77 76 69 Respiratory Rate 21 21 20 Blood Pressure 119/56 L Pulse Oximetry 96 96 96 06/12/18 19:09 06/12/18 19:15 06/12/18 20:00 Temperature Pulse Rate 67 67 Respiratory Rate 21 21 10 L Blood Pressure 103/51 L Pulse Oximetry 96 96 96 06/12/18 20:09 06/12/18 21:00 06/12/18 22:00 Temperature Pulse Rate 66 66 66 Respiratory Rate 17 21 19 Blood Pressure 100/53 L 103/52 L 98/55 L Pulse Oximetry 96 97 96 06/12/18 23:00 06/12/18 23:14 06/13/18 00:00 Temperature 98.2 F Pulse Rate 64 80 Respiratory Rate 20 20 26 H Blood Pressure 104/52 L 97/53 L Pulse Oximetry 94 L 94 L 92 L 06/13/18 00:21 06/13/18 01:00 06/13/18 02:00 Temperature Pulse Rate 69 66 83 Respiratory Rate 22 21 20 Blood Pressure 91/49 L 100/53 L 101/52 L Pulse Oximetry 92 L 92 L 92 L 06/13/18 02:51 06/13/18 03:00 06/13/18 03:52 Temperature Pulse Rate 80 79 Respiratory Rate 22 21 20 Blood Pressure 120/59 L 115/58 L Pulse Oximetry 92 L 93 L 93 L 06/13/18 04:00 06/13/18 05:00 06/13/18 06:00 Temperature 99.0 F Pulse Rate 78 79 83 Respiratory Rate 21 20 20 Blood Pressure 108/58 L 115/59 L 108/58 L Pulse Oximetry 93 L 92 L 93 L 06/13/18 07:00 06/13/18 08:00 06/13/18 09:12 Temperature 99.6 F Pulse Rate 83 80 Respiratory Rate 21 20 18 Blood Pressure 112/55 L 111/56 L Pulse Oximetry 92 L 92 L 98 06/13/18 09:16 06/13/18 10:00 06/13/18 11:00 Temperature 99.8 F H Pulse Rate 94 H 89 88 Respiratory Rate 20 20 20 Blood Pressure 150/69 H 126/60 132/60 Pulse Oximetry 99 95 94 L 06/13/18 12:00 06/13/18 12:15 06/13/18 13:00 Temperature 99.8 F H Pulse Rate 87 83 Respiratory Rate 20 22 23 Blood Pressure 139/62 128/59 L Pulse Oximetry 94 L 94 L 94 L 06/13/18 14:00 06/13/18 15:00 06/13/18 16:00 Temperature 99.8 F H Pulse Rate 82 99 H 93 H Respiratory Rate 24 28 H 27 H Blood Pressure 132/63 140/63 144/64 H Pulse Oximetry 94 L 92 L 94 L Intake & Output 06/12/18 06/13/18 06/13/18 18:59 06:59 18:59 Intake Total 2235 / 2235 3114 / 3114 2260 / 2260 Output Total 1370 / 1370 930 / 930 Balance 865 / 865 2184 / 2184 2260 / 2260 Weight 139.3 kg Intake: IV 1405 / 1405 2100 / 2100 2260 / 2260 Diprivan 1000 mg/100 ml Inj 1, 100 / 100 100 / 100 000 mg In 100 ml @ 5 MCG/KG/MIN 3.972 mls/hr IV.CONT TITRATE PRN Rx#:[id number] 1/2 Normal Saline Inj 1,000 ML 1000 / 1000 2000 / 2000 1950 / 1950 @ 125 mls/hr IV.CONT .Q8H JACOB Rx#:[id number] Cubicin Inj 800 MG In NS Inj 100 / 100 100 ML @ 200 mls/hr IV.SIG ONCE ONE Rx#:[id number] INVanz Inj 1,000 MG In NS Inj 100 / 100 100 / 100 100 ML @ 200 mls/hr IV.SIG Q24H [facility] Rx#:[id number] Keppra Inj 500 MG In NS Inj 100 105 / 105 210 / 210 ML @ 400 mls/hr IV.SIG Q12H [facility] Rx#:[id number] Oral 0 / 0 Tube Feeding 30 / 30 364 / 364 Tube Irrigant 150 / 150 150 / 150 Water Bolus Amount 200 / 200 500 / 500 Anesthesia Amount 450 / 450 Output: Estimated Blood Loss 25 / 25 Urine Amount (Catheter) 1325 / 1325 925 / 925 Indwelling Urethral Catheter 1325 / 1325 925 / 925 Wound Drainage 5 / 5 # 1 Left Knee Hemovac 5 / 5 Other: Date of Last Bowel Movement 06/07/18 06/07/18 06/07/18 # Bowel Movements 0 0 06/12/18 13:10 Tissue - Knee Gram Stain - Final 06/12/18 13:10 Tissue - Knee Wound Culture - Preliminary S. aureus MRSA 06/12/18 13:09 Tissue - Knee Gram Stain - Final 06/12/18 13:09 Tissue - Knee Wound Culture - Preliminary No growth in 24 hours 06/12/18 13:10 Other Fungal Smear - Final No fungal elements seen 06/12/18 13:10 Other Fungal Culture - Pending 06/12/18 13:09 Tissue - Knee Fungal Smear - Final No fungal elements seen 06/12/18 13:09 Tissue - Knee Fungal Culture - Pending 06/11/18 07:41 Blood - Peripheral Aerobic Blood Culture - Final S. aureus MRSA 06/11/18 07:41 Blood - Peripheral Anaerobic Blood Culture - Preliminary No growth in 2 days 06/10/18 06:20 Blood - Peripheral Aerobic Blood Culture - Final S. aureus MRSA 06/10/18 06:20 Blood - Peripheral Anaerobic Blood Culture - Preliminary No growth in 3 days 06/08/18 14:00 Blood - Peripheral Aerobic Blood Culture - Final S. aureus MRSA 06/08/18 14:00 Blood - Peripheral Anaerobic Blood Culture - Final No growth in 5 days 06/08/18 05:54 Blood - Peripheral Aerobic Blood Culture - Final S. aureus MRSA 06/08/18 05:54 Blood - Peripheral Anaerobic Blood Culture - Final No growth in 5 days 06/12/18 13:10 Other Acid Fast Bacilli Smear - Pending 06/12/18 13:10 Other Mycobacterial Culture - Pending 06/12/18 13:09 Tissue - Knee Acid Fast Bacilli Smear - Pending 06/12/18 13:09 Tissue - Knee Mycobacterial Culture - Pending 06/07/18 14:19 Blood - Peripheral Aerobic Blood Culture - Final S. aureus MRSA 06/07/18 14:19 Blood - Peripheral Anaerobic Blood Culture - Final No growth in 5 days 06/06/18 04:13 Blood - Peripheral Aerobic Blood Culture - Final S. aureus MRSA 06/06/18 04:13 Blood - Peripheral Anaerobic Blood Culture - Final No growth in 5 days 06/09/18 11:35 Fluid - Synovial Fluid Gram Stain - Final 06/09/18 11:35 Fluid - Synovial Fluid Body Fluid Culture - Final S. aureus MRSA 06/08/18 18:30 Sputum - Endotracheal Gram Stain - Final 06/08/18 18:30 Sputum - Endotracheal Sputum Culture - Final Heavy growth normal respiratory sepideh Lab - Hematology Results 06/12/18 06/13/18 04:29 04:21 WBC 10.2 9.7 RBC 3.08 L 3.07 L Hgb 9.2 L 9.3 L Hct 28.5 L 27.8 L MCV 92.6 90.7 MCH 29.8 30.1 MCHC 32.2 33.3 RDW 17.4 H 17.2 Plt Count 156 187 MPV 9.4 9.3 Neut % (Auto) 80.7 H 82.2 H Lymph % (Auto) 10.1 9.3 Stephenson % (Auto) 7.0 6.8 Eos % (Auto) 1.9 1.5 Baso % (Auto) 0.3 0.2 Neut # (Auto) 8.2 H 8.0 H Lymph # (Auto) 1.0 0.9 L Stephenson # (Auto) 0.7 0.7 Eos # (Auto) 0.2 0.1 Baso # (Auto) 0.0 0.0 WBC Differential . . Differential Comment Auto diff final Auto diff final Lab - Chemistry Results 06/11/18 06/11/18 06/12/18 20:57 23:09 03:04 Sodium Potassium Chloride Carbon Dioxide Anion Gap BUN Creatinine Estimated GFR POC Glucose 172 H 176 H 173 H Random Glucose Calcium Calcium Adj for Albumin Total Bilirubin AST ALT Alkaline Phosphatase Total Protein Albumin 06/12/18 06/12/18 06/12/18 04:29 07:14 13:53 Sodium 151 H Potassium 4.2 Chloride 126 H Carbon Dioxide 18.5 L Anion Gap 7 BUN 68 H Creatinine 2.79 H Estimated GFR 23 L POC Glucose 148 H 154 H Random Glucose 140 H Calcium 7.7 L Calcium Adj for Albumin Total Bilirubin 0.7 AST 47 H ALT 35 Alkaline Phosphatase 48 Total Protein 6.3 L Albumin 1.7 L 06/12/18 06/12/18 06/13/18 17:27 20:45 00:08 Sodium Potassium Chloride Carbon Dioxide Anion Gap BUN Creatinine Estimated GFR POC Glucose 170 H 152 H 140 H Random Glucose Calcium Calcium Adj for Albumin Total Bilirubin AST ALT Alkaline Phosphatase Total Protein Albumin 06/13/18 06/13/18 06/13/18 03:35 04:21 12:09 Sodium 153 H Potassium 4.6 Chloride 127 H Carbon Dioxide 19.5 L Anion Gap 7 BUN 72 H Creatinine 2.70 H Estimated GFR 24 L POC Glucose 148 H 170 H Random Glucose 142 H Calcium 7.4 L* Calcium Adj for Albumin 9.3 Total Bilirubin AST ALT Alkaline Phosphatase Total Protein Albumin 1.6 L 06/13/18 16:05 Sodium Potassium Chloride Carbon Dioxide Anion Gap BUN Creatinine Estimated GFR POC Glucose 181 H Random Glucose Calcium Calcium Adj for Albumin Total Bilirubin AST ALT Alkaline Phosphatase Total Protein Albumin Imaging: ITS Impressions Abdomen/Bladder Ultrasound 06/03/18 00:00 CONCLUSION: 1. Bilateral simple cysts within the kidneys as above. 2. No findings to indicate renal obstruction. 3. Renal cortex appears of adequate thickness. Abdomen/Pelvis CT 06/04/18 00:00 CONCLUSION: 1. The second and third portions of the duodenum appear mildly prominent and indistinct with mild surrounding inflammatory change extending into the adjacent mesentery. The findings are concerning for duodenitis. 2. Bilateral renal cysts. 3. Minimal pleural effusions and atelectasis in the lung bases. 4. The gallbladder is unremarkable. Head MRI 06/04/18 00:00 CONCLUSION: 1. There is a focal stable area of subacute hemorrhage adjacent to the posterior right midbrain measuring approximately 1.5 cm in length. This is not significantly changed in its overall appearance compared to the recent CT scan of the brain. No definite new areas of hemorrhage are demonstrated. 2. Stable diffuse bilateral cortical atrophy. Head MRA 06/04/18 00:00 CONCLUSION: 1. Atherosclerotic changes involving the left M2 segment. 2. No aneurysm or vascular abnormality identified. 3. Visualization of the known blood products along the right side of the brainstem. Neck MRA 06/04/18 00:00 CONCLUSION: 1. Unremarkable MRA of the carotids. Percent stenosis is calculated using the diameter of the stenotic region over the diameter of the normal distal internal carotid artery Abdomen X-Ray 06/05/18 00:00 CONCLUSION: Feeding tube distal tip is in the gastric body. Knee X-Ray 06/06/18 00:00 CONCLUSION: 1. Moderate suprapatellar effusion. 2. Prominent degenerative osteoarthritis. Head CT 06/08/18 00:00 CONCLUSION: 1. Resolving subarachnoid hemorrhage. No acute hemorrhage is identified. . Knee MRI 06/08/18 07:08 CONCLUSION: 1. Nonspecific joint effusion and moderate severity synovitis. Also nonspecific subcutaneous edema. Nothing organized or drainable. 2. Medial compartment predominant osteoarthritis. 3. Tears of the medial and lateral menisci as above. Cervical Spine MRI 06/08/18 07:09 CONCLUSION: 1. Increased signal anterior to the C6-C7 disc level and between the prominent anterior marginal osteophytes. The anterior longitudinal ligament is not seen. This could be the sequela of an injury in this region. The remaining aspect of the disc is intact. The vertebral bodies demonstrate normal signal. Prevertebral soft tissue swelling is not seen. This could be chronic. Fluid resembling a pseudarthrosis can also develop between osteophytes potentially. The remaining soft tissues appear intact. 2. Mild left lateral recess disc protrusion at the C2-C3 level. 3. Mild central disc protrusion at the C3-C4 level. 4. Mild disc bulge at the C5-C6 level and minimal disc bulge at the C4-C5 level. 5. Scattered neural foraminal narrowing as described above. Lumbar Spine MRI 06/08/18 07:09 CONCLUSION: 1. Severe stenosis at the L4-L5 level. 2. Moderate stenosis at the L2-L3 level. 3. Minimal disc bulge at the L1-L2 level with a small inferiorly directed extruded disc fragment at the right side. Significant stenosis is not seen at this level. 4. No focal fluid collection is identified. Thoracic Spine MRI 06/08/18 07:09 CONCLUSION: 1. Limited, noncontrast examination with no evidence of abscess. 2. Small posterior central protrusion at T5-6 with mild flattening of the anterior cord. 3. Posterior disc bulge at T6-7 with mild flattening of the anterior thecal sac. Chest X-Ray 06/12/18 06:53 CONCLUSION: Persistent left basilar airspace disease otherwise stable chest. Physical Exam: GENERAL: Sedated on the vent, not in respiratory distress. SKIN: Warm and dry. No generalized rash, no ecchymoses and no evidence of embolic lesions. HEAD: Atraumatic. Normocephalic. No temporal wasting, or tenderness. EYES: [place] conjunctiva. No petechia or hemorrhage. Pupils equal, round and reactive to light. No scleral icterus. No injection or drainage. EARS, NOSE AND THROAT: Nose without bleeding or purulent nasal discharge. Orally intubated NECK: Trachea midline. Supple and not tender, no meningeal signs CARDIOVASCULAR: Regular rate and rhythm. No murmurs, rubs or gallops heard RESPIRATORY: Clear to auscultation. Breath sounds equal bilaterally. No rales , wheezing or rhonchi ABDOMEN: Soft, obese, globular, distended bowel sounds present and normoactive. EXTREMITIES: Left knee drain in place with sanguinous discharge NEUROLOGICAL: Sedated. PSYCHIATRIC: Unable to assess. LINE: No evidence of infection : [place] in place, urine better Assessment and Plan - Plan Impression MRSA sepsis on presentation, worrisome for IE - LAURIE negative - MRSA not a common pathogen - so far no obvious source for the MRSA, and very likely endovascular - BC still (+) - Has septic L knee UTI - first UC with MRSA; now with E coli ESBL Septic L knee, MRSA Hemorrhage posterior fossa - no aneurysm: MRA negative for mycotic aneurism Hx DM, HTN, Obesity Renal insufficiency, improving Fevers, better Respiratory failure - CXR clear Recommendation Repeat blood culture to document clearing. Now with source control expect repeat BCX to be negative. Continue Cubicin Continue Invanz Follow C/S Monitor progress Follow miky D/W MATEO Syed to resume care in am
[2018-06-13] MEDS: Labetalol HCl Inj 100 MG/20 ML Vial IV.PUSH PRN ×2 (18:19→23:44)
[2018-06-13] MEDS: Acetaminophen 325 MG Tablet PO PRN (23:28)
[2018-06-14] MEDS: Oral Hygiene Kit OROPHARYNG SCH ×3 (03:15→16:24)
[2018-06-14] MEDS: Insulin NovoLIN Regular Correctional Sugar Inj SQ SCH ×5 (03:15→21:39)
[2018-06-14 04:29] LABS: Baso # (Auto) 0.1 th/mm3 (0.0-0.2); Baso % (Auto) 0.4 % (0.0-2.0); Eos # (Auto) 0.1 th/mm3 (0.0-0.4); Eos % (Auto) 0.6 % (0.0-4.0); Hematocrit 28.1 % (39.0-51.0); Hemoglobin 9.3 gm/dL (13.0-17.0); Lymph # (Auto) 1.2 th/mm3 (1.0-4.8); Lymph % (Auto) 8.8 % (9.0-44.0); Mean Corpuscular Hemoglobin 29.6 pg (27.0-34.0); Mean Corpuscular Volume 89.7 fL (80.0-100.0); Mean Platelet Volume 8.9 fL (7.0-11.0); Mono # (Auto) 0.8 th/mm3 (0.0-0.9); Neut # (Auto) 11.6 th/mm3 (1.8-7.7); Neut % (Auto) 84.2 % (16.0-70.0); Platelet Count 254 th/mm3 (150-450); Red Blood Count 3.13 mil/mm3 (4.50-5.90); Red Cell Distribution Width 16.9 % (11.6-17.2); White Blood Count 13.8 th/mm3 (4.0-11.0)
[2018-06-14 04:53] LABS: Calcium 7.9 mg/dL (8.5-10.1); Carbon Dioxide 17.4 meq/L (21.0-32.0); Potassium 4.7 meq/L (3.5-5.1)
[2018-06-14] MEDS: Labetalol HCl Inj 100 MG/20 ML Vial IV.PUSH PRN (06:21)
[2018-06-14] MEDS: Sodium Chloride 0.45 % Inj 1,000 ML IV.CONT SCH (07:35)
[2018-06-14] MEDS: Famotidine PF Inj 20 MG/2 ML Vial IV.PUSH SCH ×2 (08:30→21:41)
[2018-06-14] MEDS: Chlorhexidine 0.12% Oral Kit 15 ML UDC OROPHARYNG SCH ×2 (08:30→21:40)
[2018-06-14] MEDS: Heparin - SQ 10,000 UNITS/ML Vial SQ SCH ×2 (08:30→21:40)
[2018-06-14] MEDS: Senna/Docusate Sodium 8.6/50 MG Tablet PO SCH ×2 (08:33→21:41)
--- NOTE | 2018-06-14 12:04 | P.DIET ---
Nutritional Evaluation Type of nutrition evaluation: follow-up Nutrition consult regarding: Tube Feeding Objective - Diagnosis Brain Bleed - Objective % IBW: 145 (IBW = 202#) Body Weight Used for Calculations: IBW (91.8 kg) Energy Needs - Lower Range (kCal/kg): 24 Energy Needs - Upper Range (kCal/kg): 28 Lower Limit kCal/kg (kCals): 2,203 Upper Limit kCal/kg (kCals): 2,570 Lower Limit Protein Factor (Grams per Kg): 1.2 Upper Limit Protein Factor (Grams per Kg): 1.5 Lower Protein Needs (Protein): 110 Upper Protein Needs (Protein): 138 Dietitian Reviewed in Medical Record: Curent medications, Intake & Output, Labs , Medical history, Tube feeding Diet Order: NPO Speech Therapy Recommendations: Yes (npo (06/07)) Objective Comments: 06/12 L knee lateral arthrotomy with I&D Labs: Na 152, BUN/creat 70/2.49, Est GFR 26, glu 174 Assessment Assessment: Pt remains at high nutrition risk 2' to their need for TFing. Pt is currently receiving Nepro @ 30 mls/hr. Recommend Glucerna 1.5 @ 60 mls/hr to provide 2160 kcals, 119 gms protein and 1093 mls of free water. Labs, wts and clinical course reviewed. Recommendations: Glucerna 1.5 @ 60 mls/hr goal Dietitian to Monitor: Lab values, Intake & Output, Tube feeding tolerance, Weight change, Medical course
[2018-06-14] MEDS: Sodium Chloride 23.4% Inj 38.5 MEQ in Water for Inj, Sterile 1,000 ML IV.CONT SCH (12:30)
[2018-06-14] MEDS ORDERED: DAPTOmycin Inj 800 MG in Sodium Chlor 0.9% Inj 100 ML IV.SIG SCH (13:00)
[2018-06-14] MEDS ORDERED: Dimethicone/Oxybenzone-Padimate Lip Balm 4.25 GM Tube TOPICAL PRN (13:46)
--- NOTE | 2018-06-14 13:54 | P.PNID ---
Subjective Remarks: Patient is a 68-year-old male, brought into the hospital initially at [facility] for evaluation of weakness and slurred speech. It apparently has been present for several days. He was found on the floor of his mobile home. At [facility] he was found to be febrile, WBC up to 21,000, urinalysis with pyuria, creatinine 2.33, and lactic acid was elevated. CT of the head showed focal hemorrhage in the posterior fossa. Patient was transferred to [facility] for neurosurgical evaluation. Patient since admission has had elevated temperature. His blood cultures done on admission are now reported as growing gram-positive cocci, MRSA. His urine culture is also growing MRSA. On evaluation in the intensive care unit, he is awake, and interactive. He looks slightly tachypneic at rest and and on nasal O2. He has some confusion but mostly his oriented. His chest x-ray is normal. Echo is showing calcification in the aortic valve. No vegetations seen. Infectious disease consultation has been requested to assist with evaluation and treatment of patient with MRSA bacteremia. Notes reviewed Febrile overnight Sedated on the vent Had I and D L knee 06/12 Last (+) BC 06/12 LAURIE no vegetation seen Not on pressors. No rash No diarrhea Antibiotics: Cubicin Invanz Lines: PIV Past Medical History: Diabetes History of MRSA infection Onset Date: ~06/03/18 Hypertension Obesity UTI (urinary tract infection) Allergies/Adverse Reactions: Allergies No Known Allergies Allergy (Verified 06/03/18 01:32) Objective Vital Signs 06/13/18 14:00 06/13/18 15:00 06/13/18 16:00 Temperature 99.8 F H Pulse Rate 82 99 H 93 H Respiratory Rate 24 28 H 27 H Blood Pressure 132/63 140/63 144/64 H Pulse Oximetry 94 L 92 L 94 L 06/13/18 17:00 06/13/18 18:00 06/13/18 19:00 Temperature Pulse Rate 93 H 92 H 85 Respiratory Rate 24 20 Blood Pressure 149/68 H 158/72 H 158/67 H Pulse Oximetry 95 95 95 06/13/18 20:00 06/13/18 20:10 06/13/18 21:00 Temperature 99.2 F Pulse Rate 89 93 H Respiratory Rate 18 26 H 18 Blood Pressure 147/67 H 150/66 H Pulse Oximetry 88 L 94 L 95 06/13/18 22:00 06/13/18 22:16 06/13/18 23:00 Temperature Pulse Rate 91 H 95 H 96 H Respiratory Rate 20 Blood Pressure 144/68 H 162/71 H Pulse Oximetry 97 98 96 06/13/18 23:16 06/13/18 23:25 06/13/18 23:34 Temperature 101.1 F H Pulse Rate 93 H Respiratory Rate 25 H 31 H Blood Pressure 179/76 H Pulse Oximetry 97 96 06/13/18 23:42 06/14/18 00:00 06/14/18 00:16 Temperature Pulse Rate 92 H 75 78 Respiratory Rate 24 Blood Pressure 181/74 H 156/67 H Pulse Oximetry 98 97 97 06/14/18 01:00 06/14/18 01:16 06/14/18 02:00 Temperature Pulse Rate 78 80 77 Respiratory Rate 25 H Blood Pressure 162/66 H Pulse Oximetry 98 97 98 06/14/18 02:16 06/14/18 02:52 06/14/18 03:00 Temperature Pulse Rate 76 79 Respiratory Rate 29 H Blood Pressure 123/56 L Pulse Oximetry 98 97 97 06/14/18 03:16 06/14/18 04:00 06/14/18 04:16 Temperature Pulse Rate 80 91 H 100 H Respiratory Rate 25 H Blood Pressure 136/63 149/63 H Pulse Oximetry 96 95 95 06/14/18 05:00 06/14/18 05:16 06/14/18 06:00 Temperature Pulse Rate 91 H 98 H 99 H Respiratory Rate 25 H Blood Pressure 139/58 L Pulse Oximetry 96 95 95 06/14/18 06:16 06/14/18 07:16 06/14/18 07:35 Temperature Pulse Rate 96 H 81 Respiratory Rate 29 H Blood Pressure 168/68 H 131/62 Pulse Oximetry 96 97 98 06/14/18 08:00 06/14/18 08:16 06/14/18 09:16 Temperature 99.2 F Pulse Rate 89 86 89 Respiratory Rate Blood Pressure 146/66 H 156/67 H Pulse Oximetry 96 96 06/14/18 10:00 06/14/18 10:16 06/14/18 11:00 Temperature Pulse Rate 89 82 81 Respiratory Rate 27 H Blood Pressure 141/63 H 137/63 Pulse Oximetry 97 97 06/14/18 11:01 06/14/18 11:15 06/14/18 11:30 Temperature Pulse Rate 92 H 89 Respiratory Rate 27 H Blood Pressure 160/68 H 152/68 H Pulse Oximetry 98 97 97 06/14/18 11:45 06/14/18 12:00 06/14/18 12:15 Temperature 99.2 F Pulse Rate 85 84 90 Respiratory Rate Blood Pressure 153/67 H 138/64 149/67 H Pulse Oximetry 97 97 97 06/14/18 12:30 06/14/18 12:45 06/14/18 13:00 Temperature Pulse Rate 83 91 H 85 Respiratory Rate Blood Pressure 141/64 H 157/69 H 147/68 H Pulse Oximetry 97 97 96 06/14/18 13:15 06/14/18 13:30 Temperature Pulse Rate 87 75 Respiratory Rate Blood Pressure 150/68 H 137/63 Pulse Oximetry 96 97 Intake & Output 06/13/18 06/14/18 06/14/18 18:59 06:59 18:59 Intake Total 2908 / 2908 681 / 681 1009.625 / 1009.625 Output Total 1425 / 1425 1700 / 1700 Balance 1483 / 1483 -1019 / -1019 1009.625 / 1009.625 Weight 140 kg Intake: IV 2490 / 2490 105 / 105 1009.625 / 1009.625 1/2 Normal Saline Inj 1,000 ML 1950 / 1950 @ 125 mls/hr IV.CONT .Q8H JACOB Rx#:[id number] Sodium Chloride 23.4% Inj 38.5 1009.625 / 1009.625 MEQ In Sterile Water for Inj 1, 000 ML @ 50 mls/hr IV.CONT . [id number] JACOB Rx#:[id number] INVanz Inj 1,000 MG In NS Inj 100 / 100 100 ML @ 200 mls/hr IV.SIG Q24H JACOB Rx#:[id number] fentaNYL 10 mcg/mL Premix Drip 230 / 230 2,500 mcg In 250 ml @ 50 MCG/HR 5 mls/hr IV.SIG TITRATE PRN Rx #:[id number] Keppra Inj 500 MG In NS Inj 100 210 / 210 105 / 105 ML @ 400 mls/hr IV.SIG Q12H JACOB Rx#:[id number] Tube Feeding 338 / 338 276 / 276 Tube Irrigant 300 / 300 Water Bolus Amount 80 / 80 Output: Urine Amount (Catheter) 1425 / 1425 1700 / 1700 Indwelling Urethral Catheter 1425 / 1425 1700 / 1700 Wound Drainage 0 / 0 0 / 0 # 1 Left Knee Hemovac 0 / 0 0 / 0 Other: Date of Last Bowel Movement 06/07/18 06/14/18 06/14/18 # Bowel Movements 0 1 06/12/18 13:09 Tissue - Knee Gram Stain - Final 06/12/18 13:09 Tissue - Knee Wound Culture - Preliminary gram positive cocci 06/13/18 18:50 Blood - Peripheral Aerobic Blood Culture - Preliminary No growth in 1 day 06/13/18 18:50 Blood - Peripheral Anaerobic Blood Culture - Preliminary No growth in 1 day 06/13/18 19:00 Blood - Peripheral Aerobic Blood Culture - Preliminary No growth in 1 day 06/13/18 19:00 Blood - Peripheral Anaerobic Blood Culture - Preliminary No growth in 1 day 06/11/18 07:41 Blood - Peripheral Aerobic Blood Culture - Final S. aureus MRSA 06/11/18 07:41 Blood - Peripheral Anaerobic Blood Culture - Preliminary No growth in 3 days 06/10/18 06:20 Blood - Peripheral Aerobic Blood Culture - Final S. aureus MRSA 06/10/18 06:20 Blood - Peripheral Anaerobic Blood Culture - Preliminary No growth in 4 days 06/12/18 13:10 Tissue - Knee Gram Stain - Final 06/12/18 13:10 Tissue - Knee Wound Culture - Final S. aureus MRSA 06/12/18 13:10 Other Fungal Smear - Final No fungal elements seen 06/12/18 13:10 Other Fungal Culture - Pending 06/12/18 13:09 Tissue - Knee Fungal Smear - Final No fungal elements seen 06/12/18 13:09 Tissue - Knee Fungal Culture - Pending 06/08/18 14:00 Blood - Peripheral Aerobic Blood Culture - Final S. aureus MRSA 06/08/18 14:00 Blood - Peripheral Anaerobic Blood Culture - Final No growth in 5 days 06/08/18 05:54 Blood - Peripheral Aerobic Blood Culture - Final S. aureus MRSA 06/08/18 05:54 Blood - Peripheral Anaerobic Blood Culture - Final No growth in 5 days 06/12/18 13:10 Other Acid Fast Bacilli Smear - Pending 06/12/18 13:10 Other Mycobacterial Culture - Pending 06/12/18 13:09 Tissue - Knee Acid Fast Bacilli Smear - Pending 06/12/18 13:09 Tissue - Knee Mycobacterial Culture - Pending 06/07/18 14:19 Blood - Peripheral Aerobic Blood Culture - Final S. aureus MRSA 06/07/18 14:19 Blood - Peripheral Anaerobic Blood Culture - Final No growth in 5 days 06/06/18 04:13 Blood - Peripheral Aerobic Blood Culture - Final S. aureus MRSA 06/06/18 04:13 Blood - Peripheral Anaerobic Blood Culture - Final No growth in 5 days 06/09/18 11:35 Fluid - Synovial Fluid Gram Stain - Final 06/09/18 11:35 Fluid - Synovial Fluid Body Fluid Culture - Final S. aureus MRSA Lab - Hematology Results 06/13/18 06/14/18 04:21 04:16 WBC 9.7 13.8 H RBC 3.07 L 3.13 L Hgb 9.3 L 9.3 L Hct 27.8 L 28.1 L MCV 90.7 89.7 MCH 30.1 29.6 MCHC 33.3 33.0 RDW 17.2 16.9 Plt Count 187 254 D MPV 9.3 8.9 Neut % (Auto) 82.2 H 84.2 H Lymph % (Auto) 9.3 8.8 L [place] % (Auto) 6.8 6.0 Eos % (Auto) 1.5 0.6 Baso % (Auto) 0.2 0.4 Neut # (Auto) 8.0 H 11.6 H Lymph # (Auto) 0.9 L 1.2 [place] # (Auto) 0.7 0.8 Eos # (Auto) 0.1 0.1 Baso # (Auto) 0.0 0.1 WBC Differential . . Differential Comment Auto diff final Auto diff final Lab - Chemistry Results 06/12/18 06/12/18 06/12/18 13:53 17:27 20:45 Sodium Potassium Chloride Carbon Dioxide Anion Gap BUN Creatinine Estimated GFR POC Glucose 154 H 170 H 152 H Random Glucose Calcium Calcium Adj for Albumin Albumin 06/13/18 06/13/18 06/13/18 00:08 03:35 04:21 Sodium 153 H Potassium 4.6 Chloride 127 H Carbon Dioxide 19.5 L Anion Gap 7 BUN 72 H Creatinine 2.70 H Estimated GFR 24 L POC Glucose 140 H 148 H Random Glucose 142 H Calcium 7.4 L* Calcium Adj for Albumin 9.3 Albumin 1.6 L 06/13/18 06/13/18 06/13/18 12:09 16:05 21:49 Sodium Potassium Chloride Carbon Dioxide Anion Gap BUN Creatinine Estimated GFR POC Glucose 170 H 181 H 169 H Random Glucose Calcium Calcium Adj for Albumin Albumin 06/13/18 06/14/18 06/14/18 23:10 03:10 04:16 Sodium 152 H Potassium 4.7 Chloride 126 H Carbon Dioxide 17.4 L Anion Gap 9 BUN 70 H Creatinine 2.49 H Estimated GFR 26 L POC Glucose 166 H 175 H Random Glucose 174 H Calcium 7.9 L Calcium Adj for Albumin Albumin 06/14/18 06/14/18 07:41 12:42 Sodium Potassium Chloride Carbon Dioxide Anion Gap BUN Creatinine Estimated GFR POC Glucose 171 H 156 H Random Glucose Calcium Calcium Adj for Albumin Albumin Imaging: ITS Impressions Abdomen/Bladder Ultrasound 06/03/18 00:00 CONCLUSION: 1. Bilateral simple cysts within the kidneys as above. 2. No findings to indicate renal obstruction. 3. Renal cortex appears of adequate thickness. Abdomen/Pelvis CT 06/04/18 00:00 CONCLUSION: 1. The second and third portions of the duodenum appear mildly prominent and indistinct with mild surrounding inflammatory change extending into the adjacent mesentery. The findings are concerning for duodenitis. 2. Bilateral renal cysts. 3. Minimal pleural effusions and atelectasis in the lung bases. 4. The gallbladder is unremarkable. Head MRI 06/04/18 00:00 CONCLUSION: 1. There is a focal stable area of subacute hemorrhage adjacent to the posterior right midbrain measuring approximately 1.5 cm in length. This is not significantly changed in its overall appearance compared to the recent CT scan of the brain. No definite new areas of hemorrhage are demonstrated. 2. Stable diffuse bilateral cortical atrophy. Head MRA 06/04/18 00:00 CONCLUSION: 1. Atherosclerotic changes involving the left M2 segment. 2. No aneurysm or vascular abnormality identified. 3. Visualization of the known blood products along the right side of the brainstem. Neck MRA 06/04/18 00:00 CONCLUSION: 1. Unremarkable MRA of the carotids. Percent stenosis is calculated using the diameter of the stenotic region over the diameter of the normal distal internal carotid artery Abdomen X-Ray 06/05/18 00:00 CONCLUSION: Feeding tube distal tip is in the gastric body. Knee X-Ray 06/06/18 00:00 CONCLUSION: 1. Moderate suprapatellar effusion. 2. Prominent degenerative osteoarthritis. Head CT 06/08/18 00:00 CONCLUSION: 1. Resolving subarachnoid hemorrhage. No acute hemorrhage is identified. . Knee MRI 06/08/18 07:08 CONCLUSION: 1. Nonspecific joint effusion and moderate severity synovitis. Also nonspecific subcutaneous edema. Nothing organized or drainable. 2. Medial compartment predominant osteoarthritis. 3. Tears of the medial and lateral menisci as above. Cervical Spine MRI 06/08/18 07:09 CONCLUSION: 1. Increased signal anterior to the C6-C7 disc level and between the prominent anterior marginal osteophytes. The anterior longitudinal ligament is not seen. This could be the sequela of an injury in this region. The remaining aspect of the disc is intact. The vertebral bodies demonstrate normal signal. Prevertebral soft tissue swelling is not seen. This could be chronic. Fluid resembling a pseudarthrosis can also develop between osteophytes potentially. The remaining soft tissues appear intact. 2. Mild left lateral recess disc protrusion at the C2-C3 level. 3. Mild central disc protrusion at the C3-C4 level. 4. Mild disc bulge at the C5-C6 level and minimal disc bulge at the C4-C5 level. 5. Scattered neural foraminal narrowing as described above. Lumbar Spine MRI 06/08/18 07:09 CONCLUSION: 1. Severe stenosis at the L4-L5 level. 2. Moderate stenosis at the L2-L3 level. 3. Minimal disc bulge at the L1-L2 level with a small inferiorly directed extruded disc fragment at the right side. Significant stenosis is not seen at this level. 4. No focal fluid collection is identified. Thoracic Spine MRI 06/08/18 07:09 CONCLUSION: 1. Limited, noncontrast examination with no evidence of abscess. 2. Small posterior central protrusion at T5-6 with mild flattening of the anterior cord. 3. Posterior disc bulge at T6-7 with mild flattening of the anterior thecal sac. Chest X-Ray 06/12/18 06:53 CONCLUSION: Persistent left basilar airspace disease otherwise stable chest. Physical Exam: GENERAL: Sedated on the vent, not in respiratory distress. SKIN: Warm and dry. No generalized rash, no ecchymoses and no evidence of embolic lesions. HEAD: Atraumatic. Normocephalic. No temporal wasting, or tenderness. EYES: [place] conjunctiva. No petechia or hemorrhage. Pupils equal, round and reactive to light. No scleral icterus. No injection or drainage. EARS, NOSE AND THROAT: Nose without bleeding or purulent nasal discharge. Orally intubated NECK: Trachea midline. Supple and not tender, no meningeal signs CARDIOVASCULAR: Regular rate and rhythm. No murmurs, rubs or gallops heard RESPIRATORY: Clear to auscultation. Breath sounds equal bilaterally. No rales , wheezing or rhonchi ABDOMEN: Soft, obese, globular, distended bowel sounds present and normoactive. EXTREMITIES: Left knee dressing intact, drain in place with sanguinous discharge NEUROLOGICAL: Sedated. PSYCHIATRIC: Unable to assess. LINE: No evidence of infection : [place] in place, urine better Assessment and Plan - Plan Impression MRSA sepsis on presentation, worrisome for IE - LAURIE negative - MRSA not a common pathogen - so far no obvious source for the MRSA, and very likely endovascular - still (+) - Has septic L knee UTI - first UC with MRSA; now with E coli ESBL Septic L knee, MRSA Hemorrhage posterior fossa - no aneurysm: MRA negative for mycotic aneurism Hx DM, HTN, Obesity Renal insufficiency, improving Fevers, up again Respiratory failure Recommendation Follow C/S Continue Cubicin Continue Invanz Repeat UA and C/S Sputum C/S Monitor progress Follow temps Follow CBC
--- NOTE | 2018-06-14 13:59 | P.PNCC ---
Subjective Subjective Remarks/Hospital Course: 06/03: Patient is a 68-year-old male with past medical history significant for type 2 diabetes, hypertension, morbid obesity who presented to the [facility] emergency department with weakness and slurred speech. Symptoms present for 2 days, apparently he was found on the floor of his mobile home. He was noted to have high fever at the [facility] his WBC count was 21.3 UA was positive. His sodium was 134 BUN 50 with a creatinine of 2.33 bicarb was 16 lactic acid was 6.8. CPK more than 3000 at the outside hospital. A CT of the head showed focal hemorrhage into the right quadrigeminal plate cistern. Dr. Hopkins was contacted who accepted the patient and requested admission to critical care. Patient was accepted to [facility] at [place]. Deluca evaluated the patient in the [facility], he is lying in the bed. Slightly tachypneic moderate distress. Patient is oriented to place and person. CT of the head repeated here at [place] showed hemorrhage along the posterior aspect of the brainstem measuring up to 2.8 cm in maximal diameter. Mild mass effect on the brainstem. No hydrocephalus. I have started the patient on Cardene infusion for tight blood pressure control. Zosyn for UTI. 2% saline will be started to keep sodium above 150. Avoid mannitol due to renal failure. Keppra for seizure prophylaxis. I am unable to find coags but platelet count was normal. 06/04: MRSA bacteremia ob blood cultures drawn on admission. Currently on precedex, on room air. Awake, follows commands, speech, unintelligible. Started on IV vanc. ID consulted as concern for septic emboli/ endocarditis as cause for brainstem bleed. 06/05: 48 hours following a mid brain spontaneous hemorrhage complicated by numerous MRSA blood cultures. Blood pressure acceptably well controlled. Fever pattern persists. Patient tolerating extubation and protecting airway adequately. Taper completely off Precedex. Serum osmolality acceptably concentrated. 06/06: Serum osmolality acceptable, will allow sodium to drift back into the lower 150s now. Patient is alert and interactive. He moves 4 limbs spontaneously. Episodic fevers to 102+. We will continue with infectious disease workup for source of bacteremia. Endocarditis remains high on the list of possibilities. 06/07: Awake, alert, following commands. Speech very slurred however responds appropriately. Slight disorientation. Thought he was in [place]. Knows he is in the hospital. Complains of back pain. 06/08: Drowsy, arousable, tachypneic. Sodium up to 163, started on D5W and free water. Creatinine up. Tolerating tube feeds. Awaiting MRI. Will need LAURIE. Will need intubation probably for airway and in order to transport for MRI and LAURIE. 06/09: Patient intubated and placed on mechanical ventilation on 06/09. Dr. Hopkins has cleared patient for LAURIE/anticoagulation/valve surgery if needed. We are awaiting LAURIE for further evaluation of MRSA bacteremia by cardiology to determine source. Orthopedics evaluating left knee synovitis/effusion/meniscal tear. 06/10: Underwent aspiration of the left knee yesterday which is growing MRSA. Remains sedated, orally intubated on mechanical ventilation. Underwent LAURIE today which did not reveal any vegetation. Being followed by orthopedics/ID/ neurosurgery. 06/11: Remains orally intubated on mechanical ventilation. Scheduled for OR for left knee septic arthritis with Dr. Carlson. 06/12: Remains orally intubated on mechanical ventilation. Waiting for OR for left knee septic arthritis with Dr. Carlson 06/13: Remains intubated sedated. On sedation hold localizes to pain. Status post left knee lateral arthrotomy with irrigation and debridement. Fluid culture growing MRSA 06/14: Remains intubated sedated. On sedation hold now not waking up or following commands weakly withdraws extremities. WBC count increasing. Sodium coming down with hypotonic saline. Objective Vital Signs / I&O: Vital Signs 06/13/18 14:00 06/13/18 15:00 06/13/18 16:00 Temperature 99.8 F H Pulse Rate 82 99 H 93 H Respiratory Rate 24 28 H 27 H Blood Pressure 132/63 140/63 144/64 H Pulse Oximetry 94 L 92 L 94 L 06/13/18 17:00 06/13/18 18:00 06/13/18 19:00 Temperature Pulse Rate 93 H 92 H 85 Respiratory Rate 24 20 Blood Pressure 149/68 H 158/72 H 158/67 H Pulse Oximetry 95 95 95 06/13/18 20:00 06/13/18 20:10 06/13/18 21:00 Temperature 99.2 F Pulse Rate 89 93 H Respiratory Rate 18 26 H 18 Blood Pressure 147/67 H 150/66 H Pulse Oximetry 88 L 94 L 95 06/13/18 22:00 06/13/18 22:16 06/13/18 23:00 Temperature Pulse Rate 91 H 95 H 96 H Respiratory Rate 20 Blood Pressure 144/68 H 162/71 H Pulse Oximetry 97 98 96 06/13/18 23:16 06/13/18 23:25 06/13/18 23:34 Temperature 101.1 F H Pulse Rate 93 H Respiratory Rate 25 H 31 H Blood Pressure 179/76 H Pulse Oximetry 97 96 06/13/18 23:42 06/14/18 00:00 06/14/18 00:16 Temperature Pulse Rate 92 H 75 78 Respiratory Rate 24 Blood Pressure 181/74 H 156/67 H Pulse Oximetry 98 97 97 06/14/18 01:00 06/14/18 01:16 06/14/18 02:00 Temperature Pulse Rate 78 80 77 Respiratory Rate 25 H Blood Pressure 162/66 H Pulse Oximetry 98 97 98 06/14/18 02:16 06/14/18 02:52 06/14/18 03:00 Temperature Pulse Rate 76 79 Respiratory Rate 29 H Blood Pressure 123/56 L Pulse Oximetry 98 97 97 06/14/18 03:16 06/14/18 04:00 06/14/18 04:16 Temperature Pulse Rate 80 91 H 100 H Respiratory Rate 25 H Blood Pressure 136/63 149/63 H Pulse Oximetry 96 95 95 06/14/18 05:00 06/14/18 05:16 06/14/18 06:00 Temperature Pulse Rate 91 H 98 H 99 H Respiratory Rate 25 H Blood Pressure 139/58 L Pulse Oximetry 96 95 95 06/14/18 06:16 06/14/18 07:16 06/14/18 07:35 Temperature Pulse Rate 96 H 81 Respiratory Rate 29 H Blood Pressure 168/68 H 131/62 Pulse Oximetry 96 97 98 06/14/18 08:00 06/14/18 08:16 06/14/18 09:16 Temperature 99.2 F Pulse Rate 89 86 89 Respiratory Rate Blood Pressure 146/66 H 156/67 H Pulse Oximetry 96 96 06/14/18 10:00 06/14/18 10:16 06/14/18 11:00 Temperature Pulse Rate 89 82 81 Respiratory Rate 27 H Blood Pressure 141/63 H 137/63 Pulse Oximetry 97 97 06/14/18 11:01 06/14/18 11:15 06/14/18 11:30 Temperature Pulse Rate 92 H 89 Respiratory Rate 27 H Blood Pressure 160/68 H 152/68 H Pulse Oximetry 98 97 97 06/14/18 11:45 06/14/18 12:00 06/14/18 12:15 Temperature 99.2 F Pulse Rate 85 84 90 Respiratory Rate Blood Pressure 153/67 H 138/64 149/67 H Pulse Oximetry 97 97 97 06/14/18 12:30 06/14/18 12:45 06/14/18 13:00 Temperature Pulse Rate 83 91 H 85 Respiratory Rate Blood Pressure 141/64 H 157/69 H 147/68 H Pulse Oximetry 97 97 96 06/14/18 13:15 06/14/18 13:30 Temperature Pulse Rate 87 75 Respiratory Rate Blood Pressure 150/68 H 137/63 Pulse Oximetry 96 97 Intake & Output 06/13/18 06/14/18 06/14/18 18:59 06:59 18:59 Intake Total 2908 / 2908 681 / 681 1009.625 / 1009.625 Output Total 1425 / 1425 1700 / 1700 Balance 1483 / 1483 -1019 / -1019 1009.625 / 1009.625 Weight 140 kg Intake: IV 2490 / 2490 105 / 105 1009.625 / 1009.625 1/2 Normal Saline Inj 1,000 ML 1950 / 1950 @ 125 mls/hr IV.CONT .Q8H [facility] Rx#:[id number] Sodium Chloride 23.4% Inj 38.5 1009.625 / 1009.625 MEQ In Sterile Water for Inj 1, 000 ML @ 50 mls/hr IV.CONT . [id number] [facility] Rx#:[id number] INVanz Inj 1,000 MG In NS Inj 100 / 100 100 ML @ 200 mls/hr IV.SIG Q24H [facility] Rx#:[id number] fentaNYL 10 mcg/mL Premix Drip 230 / 230 2,500 mcg In 250 ml @ 50 MCG/HR 5 mls/hr IV.SIG TITRATE PRN Rx #:[id number] Keppra Inj 500 MG In NS Inj 100 210 / 210 105 / 105 ML @ 400 mls/hr IV.SIG Q12H [facility] Rx#:[id number] Tube Feeding 338 / 338 276 / 276 Tube Irrigant 300 / 300 Water Bolus Amount 80 / 80 Output: Urine Amount (Catheter) 1425 / 1425 1700 / 1700 Indwelling Urethral Catheter 1425 / 1425 1700 / 1700 Wound Drainage 0 / 0 0 / 0 # 1 Left Knee Hemovac 0 / 0 0 / 0 Other: Date of Last Bowel Movement 06/07/18 06/14/18 06/14/18 # Bowel Movements 0 1 Result Diagrams: 06/14/18 04:16 06/14/18 04:16 Objective Remarks: GENERAL: 68-year-old male lying in ICU bed , encephalopathic, orally intubated on mechanical ventilation SKIN: Focused skin assessment warm/dry. HEAD: Atraumatic. Normocephalic. EYES: Pupils equal and round. No scleral icterus. No injection or drainage. ENT: No nasal bleeding or discharge. ET tube in place, oral cavity dry. Trachea midline. CARDIOVASCULAR: Normal S1-S2. No murmurs. Regular rate and rhythm. No venous distention. RESPIRATORY: Orally intubated on mechanical ventilation, air entry decreased bilaterally at bases, few rhonchi, no adventitious sounds GASTROINTESTINAL: Abdomen soft, non-tender, nondistended. BS present. No guarding. MUSCULOSKELETAL: Warm, well perfused. Left knee Hemovac drain in place NEUROLOGICAL: Encephalopathic/sedated, orally intubated, Pupils equal 3mm, reactive. On sedation hold patient localizes to pain, slightly withdraws the lower extremities Assessment and Plan - Problem List (1) 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 Status: Acute (2) Encephalopathy acute Code(s): G93.40 - Encephalopathy, unspecified Status: Acute (3) Acute kidney failure Code(s): N17.9 - Acute kidney failure, unspecified Status: Acute (4) Severe sepsis Code(s): A41.9 - Sepsis, unspecified organism; R65.20 - Severe sepsis without septic shock Status: Acute (5) Metabolic acidemia Code(s): E87.2 - Acidosis Status: Acute (6) UTI (urinary tract infection) Code(s): N39.0 - Urinary tract infection, site not specified Status: Acute (7) Lactic acidosis Code(s): E87.2 - Acidosis Status: Acute (8) Rhabdomyolysis Code(s): M62.82 - Rhabdomyolysis Status: Acute (9) Obesity Code(s): E66.9 - Obesity, unspecified Status: Chronic (10) Hypertension Code(s): I10 - Essential (primary) hypertension Status: Chronic (11) Diabetes Code(s): E11.9 - Type 2 diabetes mellitus without complications Status: Chronic - Assessment and Plan Plan: NEURO: Brainstem hemorrhage measuring up to 2.8 cm in maximal diameter, mild mass effect Acute encephalopathy -Repeat CT findings as above -Neurosurgery Dr. Hopkins consulted and following -Off 2% saline. Currently on free water/D5W for hypernatremia -Close neuro monitoring. MRI/MRA brain results noted -Repeat head CT 06/08 shows resolving brainstem hemorrhage. -Keppra for seizure prophylaxis -Repeat CT head today, EEG if mentation not improving -Discontinue all sedation DC propofol, Precedex -With MRSA bacteremia suspect septic emboli with mycotic aneurism vs hypertensive bleed. -MRI spine reviewed, no evidence of epidural abscess RESP: Acute resp failure on mechanical ventilation Past smoking -DuoNeb every as needed -Continue mechanical ventilation, vent bundle, bronchodilators as needed -Await improvement in neurologic status prior to deciding extubation. Daily CPAP trials. CV: Lactic acidemia Hypotension History of hypertension -Initial lactic acid at the outside hospital was 6.8 -Resuscitated with normal saline IV fluids, transthoracic echo -half NS due to hyponatremia -Cardiology Dr. Odonnell consulted to perform LAURIE to evaluate for endocarditis -LAURIE performed on 06/10-ve for any vegetations. GI: -NG tube in place. Tube feeds and advance to goal as tolerated. : Acute kidney injury Rhabdomyolysis -Monitor renal function closely. Continue [place] catheter. -Strict intake output, monitor and replete electrolytes. -Nephrology consulted for rising creatinine-suspect multifactorial secondary to sepsis/vancomycin/gentamicin toxicity/IV contrast exposure. -Continue hypertonic saline for hypernatremia ID: Severe sepsis ESBL E. coli UTI MRSA bacteremia MRSA left knee septic arthritis -On Cubicin. Cefepime changed to Invanz on 06/10 for ESBL E. coli in urine culture -Status post left knee lateral arthrotomy with irrigation and debridement. Fluid culture growing MRSA -s/p MRI left knee due to swelling -orthopedics performed left knee aspiration on 06/09 with drainage of 60 cc of purulent cloudy fluid which is growing MRSA. -Vancomycin and gentamicin discontinued on 06/08 per ID due to worsening renal function. Blood cultures positive for MRSA (10/07) - ID Dr. Rodriguez -LAURIE negative for vegetation on 06/10 -Ortho following and to decide further management for left knee septic arthritis - HEME: Leukocytosis secondary to sepsis -Monitor CBC, coags ENDO: Type 2 diabetes -Sliding scale insulin -Basal long-acting insulin PROPH: -Bilateral lower extremity SCDs. IV famotidine. Subcutaneous heparin for DVT prophylaxis which was cleared by neurosurgery. LINES: -Utilize peripheral IVs, central line if needed Overall impression: Blood pressure control remains problematic and will need additional scheduled medication. Agitation appears better controlled. Bacteremia remains crucial and possibly life-threatening problem 06/08: D/W Dr. Hopkins. Called patient's son Abraham Bautista at [phone] and updated him regarding current clinical status and plan to intubate and place on mech ventilation due to concern regarding airway protection and in order to safely get imaging and possibly LAURIE and he voiced understanding and was agreeable. 06/09: Discussed with ID, discussed with Dr. Hopkins. Awaiting LAURIE. Start tube feeds after LAURIE 06/10, !08/12: D/W ID condition critical. time spent on critical care excluding procedures: 30 min (1) Brain stem hemorrhage Qualifiers: Intracerebral hemorrhage etiology: nontraumatic
--- NOTE | 2018-06-14 14:07 | P.PNNS ---
Subjective Interval history: pt seen this morning during rounds, remains intubated and sedated, no eye opening, not following commands Physical Exam Vital signs: Vital Signs 06/13/18 15:00 06/13/18 16:00 06/13/18 17:00 Temperature 99.8 F H Pulse Rate 99 H 93 H 93 H Respiratory Rate 28 H 27 H 24 Blood Pressure 140/63 144/64 H 149/68 H Pulse Oximetry 92 L 94 L 95 06/13/18 18:00 06/13/18 19:00 06/13/18 20:00 Temperature 99.2 F Pulse Rate 92 H 85 89 Respiratory Rate 20 18 Blood Pressure 158/72 H 158/67 H 147/67 H Pulse Oximetry 95 95 88 L 06/13/18 20:10 06/13/18 21:00 06/13/18 22:00 Temperature Pulse Rate 93 H 91 H Respiratory Rate 26 H 18 20 Blood Pressure 150/66 H 144/68 H Pulse Oximetry 94 L 95 97 06/13/18 22:16 06/13/18 23:00 06/13/18 23:16 Temperature Pulse Rate 95 H 96 H 93 H Respiratory Rate Blood Pressure 162/71 H 179/76 H Pulse Oximetry 98 96 97 06/13/18 23:25 06/13/18 23:34 06/13/18 23:42 Temperature 101.1 F H Pulse Rate 92 H Respiratory Rate 25 H 31 H Blood Pressure 181/74 H Pulse Oximetry 96 98 06/14/18 00:00 06/14/18 00:16 06/14/18 01:00 Temperature Pulse Rate 75 78 78 Respiratory Rate 24 Blood Pressure 156/67 H Pulse Oximetry 97 97 98 06/14/18 01:16 06/14/18 02:00 06/14/18 02:16 Temperature Pulse Rate 80 77 76 Respiratory Rate 25 H Blood Pressure 162/66 H 123/56 L Pulse Oximetry 97 98 98 06/14/18 02:52 06/14/18 03:00 06/14/18 03:16 Temperature Pulse Rate 79 80 Respiratory Rate 29 H Blood Pressure 136/63 Pulse Oximetry 97 97 96 06/14/18 04:00 06/14/18 04:16 06/14/18 05:00 Temperature Pulse Rate 91 H 100 H 91 H Respiratory Rate 25 H Blood Pressure 149/63 H Pulse Oximetry 95 95 96 06/14/18 05:16 06/14/18 06:00 06/14/18 06:16 Temperature Pulse Rate 98 H 99 H 96 H Respiratory Rate 25 H Blood Pressure 139/58 L 168/68 H Pulse Oximetry 95 95 96 06/14/18 07:16 06/14/18 07:35 06/14/18 08:00 Temperature Pulse Rate 81 89 Respiratory Rate 29 H Blood Pressure 131/62 Pulse Oximetry 97 98 06/14/18 08:16 06/14/18 09:16 06/14/18 10:00 Temperature 99.2 F Pulse Rate 86 89 89 Respiratory Rate Blood Pressure 146/66 H 156/67 H Pulse Oximetry 96 96 06/14/18 10:16 06/14/18 11:00 06/14/18 11:01 Temperature Pulse Rate 82 81 Respiratory Rate 27 H 27 H Blood Pressure 141/63 H 137/63 Pulse Oximetry 97 97 98 06/14/18 11:15 06/14/18 11:30 06/14/18 11:45 Temperature Pulse Rate 92 H 89 85 Respiratory Rate Blood Pressure 160/68 H 152/68 H 153/67 H Pulse Oximetry 97 97 97 06/14/18 12:00 06/14/18 12:15 06/14/18 12:30 Temperature 99.2 F Pulse Rate 84 90 83 Respiratory Rate Blood Pressure 138/64 149/67 H 141/64 H Pulse Oximetry 97 97 97 06/14/18 12:45 06/14/18 13:00 06/14/18 13:15 Temperature Pulse Rate 91 H 85 87 Respiratory Rate Blood Pressure 157/69 H 147/68 H 150/68 H Pulse Oximetry 97 96 96 06/14/18 13:30 Temperature Pulse Rate 75 Respiratory Rate Blood Pressure 137/63 Pulse Oximetry 97 Intake & Output 06/13/18 06/14/18 06/14/18 18:59 06:59 18:59 Intake Total 2908 / 2908 681 / 681 1009.625 / 1009.625 Output Total 1425 / 1425 1700 / 1700 Balance 1483 / 1483 -1019 / -1019 1009.625 / 1009.625 Weight 140 kg Intake: IV 2490 / 2490 105 / 105 1009.625 / 1009.625 1/2 Normal Saline Inj 1,000 ML 1950 / 1950 @ 125 mls/hr IV.CONT .Q8H [facility] Rx#:[id number] Sodium Chloride 23.4% Inj 38.5 1009.625 / 1009.625 MEQ In Sterile Water for Inj 1, 000 ML @ 50 mls/hr IV.CONT . [id number] [facility] Rx#:[id number] INVanz Inj 1,000 MG In NS Inj 100 / 100 100 ML @ 200 mls/hr IV.SIG Q24H [facility] Rx#:[id number] fentaNYL 10 mcg/mL Premix Drip 230 / 230 2,500 mcg In 250 ml @ 50 MCG/HR 5 mls/hr IV.SIG TITRATE PRN Rx #:[id number] Keppra Inj 500 MG In NS Inj 100 210 / 210 105 / 105 ML @ 400 mls/hr IV.SIG Q12H [facility] Rx#:[id number] Tube Feeding 338 / 338 276 / 276 Tube Irrigant 300 / 300 Water Bolus Amount 80 / 80 Output: Urine Amount (Catheter) 1425 / 1425 1700 / 1700 Indwelling Urethral Catheter 1425 / 1425 1700 / 1700 Wound Drainage 0 / 0 0 / 0 # 1 Left Knee Hemovac 0 / 0 0 / 0 Other: Date of Last Bowel Movement 06/07/18 06/14/18 06/14/18 # Bowel Movements 0 1 Narrative: intubated, sedated pupils equal reactive no withdrawal to extremities to pain left knee bandaged with drains in place plantars silent bilaterally - Urinary Catheter Management Indwelling Urethral Catheter Cath placed during this visit: yes Urethral indwelling: Yes Reason for continuing: Hourly intake/output Insertion date: 06/03/18 Insertion time: 03:00 Assessment and Plan - Plan 68 year old male with basal ganglia/brainstem hemorrhage, ? perimesencephalic hemorrhage. Stable GCS-5T Septicemia, Bacteremia, with (1) 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 Status: Acute (2) Encephalopathy acute Code(s): G93.40 - Encephalopathy, unspecified Status: Acute (3) Acute kidney failure Code(s): N17.9 - Acute kidney failure, unspecified Status: Acute (4) Severe sepsis Code(s): A41.9 - Sepsis, unspecified organism; R65.20 - Severe sepsis without septic shock Status: Acute (5) Metabolic acidemia Code(s): E87.2 - Acidosis Status: Acute (6) UTI (urinary tract infection) Code(s): N39.0 - Urinary tract infection, site not specified Status: Acute (7) Lactic acidosis Code(s): E87.2 - Acidosis Status: Acute (8) Rhabdomyolysis Code(s): M62.82 - Rhabdomyolysis Status: Acute (9) Obesity Code(s): E66.9 - Obesity, unspecified Status: Chronic (10) Hypertension Code(s): I10 - Essential (primary) hypertension Status: Chronic (11) Diabetes Code(s): E11.9 - Type 2 diabetes mellitus without complications Status: Chronic Head CT 06/08/18 00:00 CONCLUSION: 1. Resolving subarachnoid hemorrhage. No acute hemorrhage is identified. Cervical Spine MRI 06/08/18 07:09 CONCLUSION: 1. Increased signal anterior to the C6-C7 disc level and between the prominent anterior marginal osteophytes. The anterior longitudinal ligament is not seen. This could be the sequela of an injury in this region. The remaining aspect of the disc is intact. The vertebral bodies demonstrate normal signal. Prevertebral soft tissue swelling is not seen. This could be chronic. Fluid resembling a pseudarthrosis can also develop between osteophytes potentially. The remaining soft tissues appear intact. 2. Mild left lateral recess disc protrusion at the C2-C3 level. 3. Mild central disc protrusion at the C3-C4 level. 4. Mild disc bulge at the C5-C6 level and minimal disc bulge at the C4-C5 level. 5. Scattered neural foraminal narrowing as described above. Lumbar Spine MRI 06/08/18 07:09 CONCLUSION: 1. Severe stenosis at the L4-L5 level. 2. Moderate stenosis at the L2-L3 level. 3. Minimal disc bulge at the L1-L2 level with a small inferiorly directed extruded disc fragment at the right side. Significant stenosis is not seen at this level. 4. No focal fluid collection is identified. Thoracic Spine MRI 06/08/18 07:09 CONCLUSION: 1. Limited, noncontrast examination with no evidence of abscess. 2. Small posterior central protrusion at T5-6 with mild flattening of the anterior cord. 3. Posterior disc bulge at T6-7 with mild flattening of the anterior thecal sac. Neuro: neuro checks. No neurological changes Pulmonary: Continue mechanical ventilation, pulmonary toilette, nasotracheal suction, and breathing treatments with nebulizers. Lactic acidemia Hypotension History of hypertension -Lactic acid at the outside hospital was 6.8 -Normal saline IV fluids, transthoracic echo -Continue IV fluids. Change to half NS due to hyponatremia -Hold all antihypertensives due to borderline blood pressure following intubation. - cardiology Dr. Odonnell consulted to perform LAUREI to evaluate for endocarditis Renal: Acute kidney injury with creatinine of 3.50. HCO3 at 20.6. Non oliguric. Continue to monitor closely urine output, BUN and creatinine Endocrine: Diabetes. Continue to Monitor serial Acu checks and SSI as needed in detail Severe sepsis ESBL E. coli UTI MRSA bacteremia MRSA left knee septic arthritis -On Cubicin. -Cefepime changed to Invanz on 06/10 for ESBL E. coli in urine culture -Vancomycin and gentamicin discontinued on 06/08 per ID due to worsening renal function Blood cultures positive for MRSA (10/07) -ID consulted-Dr. Rodriguez -LAURIE negative for vegetation on 06/10 -s/p MRI left knee due to swelling -orthopedics performed left knee aspiration on 06/09 with drainage of 60 cc of purulent cloudy fluid which is growing MRSA. Plan: Continue critical care antibiotic therapy per ID neuro checks sedation weaning Will continue to follow
--- NOTE | 2018-06-14 16:56 | P.PNNP ---
Subjective Interval history: No acute events overnight, remains intubated. Creatinine at 2.46 today. <EviechaimAzul - Last Filed: 06/14/18 16:48> Physical Exam Vital signs: Vital Signs 06/13/18 17:00 06/13/18 18:00 06/13/18 19:00 Temperature Pulse Rate 93 H 92 H 85 Respiratory Rate 24 20 Blood Pressure 149/68 H 158/72 H 158/67 H Pulse Oximetry 95 95 95 06/13/18 20:00 06/13/18 20:10 06/13/18 21:00 Temperature 99.2 F Pulse Rate 89 93 H Respiratory Rate 18 26 H 18 Blood Pressure 147/67 H 150/66 H Pulse Oximetry 88 L 94 L 95 06/13/18 22:00 06/13/18 22:16 06/13/18 23:00 Temperature Pulse Rate 91 H 95 H 96 H Respiratory Rate 20 Blood Pressure 144/68 H 162/71 H Pulse Oximetry 97 98 96 06/13/18 23:16 06/13/18 23:25 06/13/18 23:34 Temperature 101.1 F H Pulse Rate 93 H Respiratory Rate 25 H 31 H Blood Pressure 179/76 H Pulse Oximetry 97 96 06/13/18 23:42 06/14/18 00:00 06/14/18 00:16 Temperature Pulse Rate 92 H 75 78 Respiratory Rate 24 Blood Pressure 181/74 H 156/67 H Pulse Oximetry 98 97 97 06/14/18 01:00 06/14/18 01:16 06/14/18 02:00 Temperature Pulse Rate 78 80 77 Respiratory Rate 25 H Blood Pressure 162/66 H Pulse Oximetry 98 97 98 06/14/18 02:16 06/14/18 02:52 06/14/18 03:00 Temperature Pulse Rate 76 79 Respiratory Rate 29 H Blood Pressure 123/56 L Pulse Oximetry 98 97 97 06/14/18 03:16 06/14/18 04:00 06/14/18 04:16 Temperature Pulse Rate 80 91 H 100 H Respiratory Rate 25 H Blood Pressure 136/63 149/63 H Pulse Oximetry 96 95 95 06/14/18 05:00 06/14/18 05:16 06/14/18 06:00 Temperature Pulse Rate 91 H 98 H 99 H Respiratory Rate 25 H Blood Pressure 139/58 L Pulse Oximetry 96 95 95 06/14/18 06:16 06/14/18 07:16 06/14/18 07:35 Temperature Pulse Rate 96 H 81 Respiratory Rate 29 H Blood Pressure 168/68 H 131/62 Pulse Oximetry 96 97 98 06/14/18 08:00 06/14/18 08:16 06/14/18 09:16 Temperature 99.2 F Pulse Rate 89 86 89 Respiratory Rate Blood Pressure 146/66 H 156/67 H Pulse Oximetry 96 96 06/14/18 10:00 06/14/18 10:16 06/14/18 11:00 Temperature Pulse Rate 89 82 81 Respiratory Rate 27 H Blood Pressure 141/63 H 137/63 Pulse Oximetry 97 97 06/14/18 11:01 06/14/18 11:15 06/14/18 11:30 Temperature Pulse Rate 92 H 89 Respiratory Rate 27 H Blood Pressure 160/68 H 152/68 H Pulse Oximetry 98 97 97 06/14/18 11:45 06/14/18 12:00 06/14/18 12:15 Temperature 99.2 F Pulse Rate 85 84 90 Respiratory Rate Blood Pressure 153/67 H 138/64 149/67 H Pulse Oximetry 97 97 97 06/14/18 12:30 06/14/18 12:45 06/14/18 13:00 Temperature Pulse Rate 83 91 H 85 Respiratory Rate Blood Pressure 141/64 H 157/69 H 147/68 H Pulse Oximetry 97 97 96 06/14/18 13:15 06/14/18 13:30 06/14/18 13:45 Temperature Pulse Rate 87 75 83 Respiratory Rate Blood Pressure 150/68 H 137/63 141/63 H Pulse Oximetry 96 97 97 06/14/18 14:00 06/14/18 14:15 06/14/18 14:30 Temperature Pulse Rate 85 72 86 Respiratory Rate Blood Pressure 150/67 H 137/63 155/66 H Pulse Oximetry 97 95 95 06/14/18 14:45 06/14/18 15:00 06/14/18 15:15 Temperature Pulse Rate 84 84 93 H Respiratory Rate Blood Pressure 150/68 H 159/70 H 168/74 H Pulse Oximetry 95 95 95 06/14/18 15:30 06/14/18 15:45 06/14/18 16:00 Temperature Pulse Rate 90 83 94 H Respiratory Rate Blood Pressure 153/68 H 156/67 H 160/69 H Pulse Oximetry 96 96 97 06/14/18 16:12 06/14/18 16:15 Temperature Pulse Rate 92 H Respiratory Rate 29 H Blood Pressure 158/69 H Pulse Oximetry 97 97 Intake & Output 06/13/18 06/14/18 06/14/18 18:59 06:59 18:59 Intake Total 2908 / 2908 681 / 681 1414.625 / 1414.625 Output Total 1425 / 1425 1700 / 1700 Balance 1483 / 1483 -1019 / -1019 1414.625 / 1414.625 Weight 140 kg Intake: IV 2490 / 2490 105 / 105 1414.625 / 1414.625 Diprivan 1000 mg/100 ml Inj 1, 100 / 100 000 mg In 100 ml @ 5 MCG/KG/MIN 3.972 mls/hr IV.CONT TITRATE PRN Rx#:[id number] 1/2 Normal Saline Inj 1,000 ML 1950 / 1950 @ 125 mls/hr IV.CONT .Q8H JACOB Rx#:[id number] Sodium Chloride 23.4% Inj 38.5 1009.625 / 1009.625 MEQ In Sterile Water for Inj 1, 000 ML @ 50 mls/hr IV.CONT . [id number] JACOB Rx#:[id number] Cubicin Inj 800 MG In NS Inj 100 / 100 100 ML @ 200 mls/hr IV.SIG Q48H JACOB Rx#:[id number] INVanz Inj 1,000 MG In NS Inj 100 / 100 100 / 100 100 ML @ 200 mls/hr IV.SIG Q24H JACOB Rx#:[id number] fentaNYL 10 mcg/mL Premix Drip 230 / 230 2,500 mcg In 250 ml @ 50 MCG/HR 5 mls/hr IV.SIG TITRATE PRN Rx #:[id number] Keppra Inj 500 MG In NS Inj 100 210 / 210 105 / 105 105 / 105 ML @ 400 mls/hr IV.SIG Q12H JACOB Rx#:[id number] Tube Feeding 338 / 338 276 / 276 Tube Irrigant 300 / 300 Water Bolus Amount 80 / 80 Output: Urine Amount (Catheter) 1425 / 1425 1700 / 1700 Indwelling Urethral Catheter 1425 / 1425 1700 / 1700 Wound Drainage 0 / 0 0 / 0 # 1 Left Knee Hemovac 0 / 0 0 / 0 Other: Date of Last Bowel Movement 06/07/18 06/14/18 06/14/18 # Bowel Movements 0 1 Narrative: GENERAL: Orally intubated, does not open eyes or follow commands. SKIN: Warm and dry. NECK: Supple, trachea midline. No JVD. CARDIOVASCULAR: Regular rate and rhythm without murmurs, gallops, or rubs. RESPIRATORY: Breath sounds equal bilaterally. No accessory muscle use. GASTROINTESTINAL: Abdomen soft, non-tender, nondistended. +BS MUSCULOSKELETAL: No cyanosis, Moderate dependent edema. Left leg with dressing and drain in place. - Urinary Catheter Management Indwelling Urethral Catheter Cath placed during this visit: yes Urethral indwelling: Yes Reason for continuing: Hourly intake/output Insertion date: 06/03/18 Insertion time: 03:00 <Azul Lam - Last Filed: 06/14/18 16:48> Vital signs: Vital Signs 06/15/18 19:00 06/15/18 19:10 06/15/18 19:52 Temperature 100.6 F H 100.4 F H Pulse Rate 81 87 Respiratory Rate 23 24 Blood Pressure 156/71 H Pulse Oximetry 100 99 100 06/15/18 20:00 06/15/18 20:10 06/15/18 21:00 Temperature 100.6 F H 100.6 F H 100.6 F H Pulse Rate 92 H 93 H 79 Respiratory Rate 21 20 20 Blood Pressure 155/70 H Pulse Oximetry 99 98 100 06/15/18 21:10 06/15/18 22:00 06/15/18 22:10 Temperature 100.8 F H 100.6 F H 100.6 F H Pulse Rate 78 76 77 Respiratory Rate 24 22 26 H Blood Pressure 141/65 H 141/63 H Pulse Oximetry 100 100 100 06/15/18 23:00 06/15/18 23:10 06/15/18 23:30 Temperature Pulse Rate 91 H 97 H Respiratory Rate 23 22 27 H Blood Pressure 153/89 H Pulse Oximetry 95 100 99 06/16/18 00:00 06/16/18 00:10 06/16/18 01:00 Temperature 100.9 F H 100.9 F H Pulse Rate 77 75 78 Respiratory Rate 21 22 24 Blood Pressure 143/65 H Pulse Oximetry 99 99 99 06/16/18 01:10 06/16/18 02:00 06/16/18 02:10 Temperature 100.9 F H 101.3 F H 101.3 F H Pulse Rate 87 75 74 Respiratory Rate 26 H 18 21 Blood Pressure 149/77 H 129/64 Pulse Oximetry 99 94 L 99 06/16/18 02:59 06/16/18 03:00 06/16/18 03:10 Temperature 100.6 F H 100.4 F H Pulse Rate 77 75 Respiratory Rate 22 24 Blood Pressure 129/61 136/65 Pulse Oximetry 95 100 06/16/18 03:28 06/16/18 04:00 06/16/18 04:12 Temperature 99.9 F H 99.9 F H Pulse Rate 76 87 Respiratory Rate 26 H 22 23 Blood Pressure 167/76 H Pulse Oximetry 96 99 100 06/16/18 04:13 06/16/18 05:00 06/16/18 05:12 Temperature 99.9 F H 99.5 F 99.5 F Pulse Rate 87 87 85 Respiratory Rate 25 H 26 H Blood Pressure 157/70 H 150/66 H Pulse Oximetry 100 99 94 L 06/16/18 06:00 06/16/18 06:09 06/16/18 07:00 Temperature 99.7 F H 99.7 F H 100.0 F H Pulse Rate 87 90 72 Respiratory Rate 24 21 Blood Pressure 159/71 H 123/58 L Pulse Oximetry 99 99 100 06/16/18 07:15 06/16/18 07:30 06/16/18 07:45 Temperature 100.0 F H 98.2 F 100.0 F H Pulse Rate 73 61 84 Respiratory Rate Blood Pressure 130/63 133/62 142/70 H Pulse Oximetry 100 100 100 06/16/18 08:00 06/16/18 08:15 06/16/18 08:25 Temperature 100.2 F H 100.2 F H Pulse Rate 77 62 Respiratory Rate Blood Pressure 142/73 H 132/61 Pulse Oximetry 100 100 100 06/16/18 08:30 06/16/18 08:45 06/16/18 09:00 Temperature 100.2 F H 100.4 F H 100.4 F H Pulse Rate 78 66 87 Respiratory Rate Blood Pressure 157/71 H 128/70 167/81 H Pulse Oximetry 100 100 100 06/16/18 09:15 06/16/18 09:30 06/16/18 09:45 Temperature 100.4 F H 100.8 F H 100.8 F H Pulse Rate 81 77 66 Respiratory Rate Blood Pressure 137/66 160/64 H 156/71 H Pulse Oximetry 100 100 100 06/16/18 10:00 06/16/18 10:15 06/16/18 10:30 Temperature 100.9 F H 100.9 F H 100.8 F H Pulse Rate 68 68 67 Respiratory Rate Blood Pressure 133/61 134/55 L 124/60 Pulse Oximetry 100 100 100 06/16/18 10:45 06/16/18 11:00 06/16/18 11:13 Temperature 100.6 F H 100.4 F H 100.0 F H Pulse Rate 64 90 70 Respiratory Rate Blood Pressure 130/61 113/56 L Pulse Oximetry 100 100 100 06/16/18 12:00 06/16/18 12:18 06/16/18 12:49 Temperature 99.9 F H 99.7 F H Pulse Rate 64 64 Respiratory Rate 15 Blood Pressure 117/59 L 123/58 L Pulse Oximetry 100 100 100 06/16/18 13:00 06/16/18 13:49 06/16/18 14:00 Temperature 99.7 F H 99.9 F H 99.9 F H Pulse Rate 66 69 70 Respiratory Rate Blood Pressure 130/62 Pulse Oximetry 100 100 100 06/16/18 14:49 06/16/18 15:00 06/16/18 15:49 Temperature 99.9 F H 99.9 F H 99.7 F H Pulse Rate 68 80 65 Respiratory Rate Blood Pressure 132/62 119/58 L Pulse Oximetry 100 100 100 06/16/18 16:00 06/16/18 16:49 06/16/18 17:00 Temperature 99.9 F H 100.0 F H 100.0 F H Pulse Rate 82 65 71 Respiratory Rate 15 Blood Pressure 131/63 Pulse Oximetry 100 100 100 06/16/18 17:49 06/16/18 18:00 Temperature 100.0 F H 100.0 F H Pulse Rate 69 71 Respiratory Rate Blood Pressure 140/62 Pulse Oximetry 100 100 Intake & Output 06/15/18 06/16/18 06/16/18 18:59 06:59 18:59 Intake Total 3164.250 / 3164.250 1173 / 1173 2355.625 / 2355.625 Output Total 1645 / 1645 3000 / 3000 4250 / 4250 Balance 1519.250 / 1519.250 -1827 / -1827 -1894.375 / -1894.375 Weight 134.8 kg Intake: IV 4.250 / 2024.250 105 / 105 1314.625 / 1314.625 Sodium Chloride 23.4% Inj 38.5 1719.250 / 2176.444 1648.625 / 1009.625 MEQ In Sterile Water for Inj 1, 000 ML @ 100 mls/hr IV.CONT . Q10H6M JACOB Rx#:[id number] Cubicin Inj 800 MG In NS Inj 100 / 100 100 / 100 100 ML @ 200 mls/hr IV.SIG Q24H JACOB Rx#:[id number] INVanz Inj 1,000 MG In NS Inj 100 / 100 100 / 100 100 ML @ 200 mls/hr IV.SIG Q24H JACOB Rx#:[id number] Keppra Inj 500 MG In NS Inj 100 105 / 105 105 / 105 105 / 105 ML @ 400 mls/hr IV.SIG Q12H JACOB Rx#:[id number] Oral 700 / 700 Tube Feeding 350 / 350 568 / 568 341 / 341 Tube Irrigant 540 / 540 Water Bolus Amount 250 / 250 500 / 500 Output: Urine 800 / 800 Urine Amount (Catheter) 1625 / 1625 3000 / 3000 3450 / 3450 Indwelling Urethral Catheter 1625 / 1625 3000 / 3000 3450 / 3450 Wound Drainage 20 / 20 0 / 0 0 / 0 # 1 Left Knee Hemovac 20 / 20 0 / 0 0 / 0 Other: Date of Last Bowel Movement 06/14/18 06/15/18 06/16/18 # Bowel Movements 0 - Urinary Catheter Management Indwelling Urethral Catheter Cath placed during this visit: no <Aurelia Powell - Last Filed: 06/16/18 18:29> Assessment and Plan - Assessment (1) Acute kidney failure Code(s): N17.9 - Acute kidney failure, unspecified Status: Acute Plan: Acute kidney injury with creatinine of 3.50. HCO3 at 20.6. Non oliguric. On admission creatinine was noted to be 1.56 CT on abdomen with no acute findings. Bilateral renal cysts noted. Patient may have some chronic kidney disease but baseline creatinine is not known. Proteinuria noted in urine. Creatinine started to increase on the 4th at 2.86. NIKKI with FeNA at 2.35 suggestive of ATN possibly from sepsis or contrast nephropathy. AIN in differential also with vancomycin/gentamicin levels elevated on the 4th. Creatinine has improved at 2.4, with good urinary output. Immunology negative. Hypernatremia, continue 1/2 NS. Avoid nephrotoxins as possible. Will follow urinary output and labs. Labs in AM <Azul Lam - Last Filed: 06/14/18 16:48> - Assessment (1) Acute kidney failure Code(s): N17.9 - Acute kidney failure, unspecified Status: Acute Plan: Patient seen and examined, agree with above. Creatinine is improving, now it is 2.4. <Aurelia Powell - Last Filed: 06/16/18 18:29>
[2018-06-14 17:15] LABS: Bacteria,Urine Few /hpf; Bilirubin,Urine Negative (Negative); Color,Urine Yellow (Yellw/Straw); Glucose,Urine (UA) Negative (Negative); Hyaline Casts,Urine 1 /lpf (0-3); Leukocyte Esterase,Urine Moderate (Negative); Mucus,Urine Few /lpf (Occasional); Nitrite,Urine Negative (Negative); Specific Gravity,Urine 1.013 (1.002-1.035); Squamous Epithelial Cell,Urine <1 /hpf (0-5)
[2018-06-14 17:16] LABS: Clarity,Urine Hazy (Clear)
--- NOTE | 2018-06-14 23:29 | CT ---
EXAM DATE: 06/14/2018 11:19 PM EST AGE/SEX: 68 years / Male INDICATIONS: Follow up hemorrhage. CLINICAL DATA: This is the patient's subsequent encounter. Patient reports that signs and symptoms h ave been present for 1 week and indicates a pain score of Nonresponsive. MEDICAL/SURGICAL HISTORY: Diabetes mellitus type II. Hypertension. None. RADIATION DOSE: 47.90 CTDI (mGy) COMPARISON: [facility] [place], CT HEAD W/O CONTRAST, 06/08/2018. . TECHNIQUE: CT of the head without contrast. Using automated exposure control and adjustment of the mA and/or kV according to patient size, radiation dose was kept as low as reasonably achievable to ob tain optimal diagnostic quality images. DICOM format image data is available electronically for revi ew and comparison. FINDINGS: Previously identified subarachnoid hemorrhage in the basal cisterns no longer seen. No evidence of ne w hemorrhage. No mass effect or midline shift. No evidence of acute infarct or intracranial mass lesi on. Diffuse cerebral atrophy is again seen. Ventricles unchanged in size. CONCLUSION: Subarachnoid hemorrhage in the basal cisterns no longer seen. No acute intracranial findings identifi ed. . Electronically signed by: Bubba Bennett MD 06/14/2018 11:28 PM EST
[2018-06-15] MEDS: Oral Hygiene Kit OROPHARYNG SCH ×4 (00:30→18:20)
[2018-06-15] MEDS: Insulin NovoLIN Regular Correctional Sugar Inj SQ SCH ×6 (02:06→21:32)
--- NOTE | 2018-06-15 04:51 | XR ---
EXAM DATE: 06/15/2018 4:48 AM EST AGE/SEX: 68 years / Male INDICATIONS: Shortness of breath. CLINICAL DATA: This is the patient's subsequent encounter. Patient reports that signs and symptoms h ave been present for 2 weeks and indicates a pain score of Nonresponsive. MEDICAL/SURGICAL HISTORY: Hypertension. Diabetes. Subarachnoid hemorrhage. None. COMPARISON: [facility] [place] 1V SINGLE AP, 06/12/2018. . FINDINGS: Single AP view the chest. Endotracheal tube and feeding tube remain in place. Mild left lower lobe op acity unchanged. Cardiomediastinal silhouette unchanged. No evidence of pneumothorax or pleural effus ion. CONCLUSION: No significant interval change with persistent patchy opacity at the left lung base. Electronically signed by: Bubba Bennett MD 06/15/2018 4:50 AM EST
[2018-06-15 05:29] LABS: Baso % (Auto) 0.3 % (0.0-2.0); Eos # (Auto) 0.1 th/mm3 (0.0-0.4); Hematocrit 26.5 % (39.0-51.0); Lymph # (Auto) 1.1 th/mm3 (1.0-4.8); Lymph % (Auto) 11.4 % (9.0-44.0); Mean Corpuscular HGB Conc 33.8 % (32.0-36.0); Mean Corpuscular Hemoglobin 30.5 pg (27.0-34.0); Mean Corpuscular Volume 90.2 fL (80.0-100.0); Mean Platelet Volume 8.7 fL (7.0-11.0); Mono # (Auto) 0.7 th/mm3 (0.0-0.9); Mono % (Auto) 7.6 % (0.0-8.0); Neut # (Auto) 7.7 th/mm3 (1.8-7.7); Neut % (Auto) 79.7 % (16.0-70.0); Platelet Count 255 th/mm3 (150-450); Red Blood Count 2.94 mil/mm3 (4.50-5.90); Red Cell Distribution Width 16.8 % (11.6-17.2); White Blood Count 9.7 th/mm3 (4.0-11.0)
[2018-06-15 05:52] LABS: Alanine Aminotransferase 37 U/L (12-78); Albumin 1.6 g/dL (3.4-5.0); Anion Gap 9 meq/L (5-15); Aspartate Aminotransferase 45 U/L (15-37); Calcium 8.2 mg/dL (8.5-10.1); Carbon Dioxide 18.2 meq/L (21.0-32.0); Chloride 126 meq/L (98-107); Glomerular Filtration Rate 28 mL/min (>89); Glucose,Random 161 mg/dL (74-106); Magnesium 2.7 mg/dL (1.5-2.5); Potassium 4.8 meq/L (3.5-5.1); Sodium 153 meq/L (136-145)
[2018-06-15 05:57] LABS: Alkaline Phosphatase 74 U/L (45-117); Blood Urea Nitrogen 64 mg/dL (7-18); Total Protein 6.7 g/dL (6.4-8.2)
[2018-06-15] MEDS: Chlorhexidine 0.12% Oral Kit 15 ML UDC OROPHARYNG SCH ×2 (07:46→19:47)
[2018-06-15] MEDS: Sodium Chloride 23.4% Inj 38.5 MEQ in Water for Inj, Sterile 1,000 ML IV.CONT SCH ×2 (07:46→18:23)
--- NOTE | 2018-06-15 08:04 | MG ---
cc: Chase Ibarra MD CLINICAL HISTORY: The patient is intubated, subarachnoid hemorrhage, obtunded, diabetes. MEDICATIONS: Keppra, Diprivan. DESCRIPTION: Recording shows diffuse 5 Hz slowing. Recording overall is synchronous and symmetric. No epileptiform or seizure activity is noted. There are no hemisphere asymmetries. Hyperventilation is not performed. Photic stimulation is performed without significant posterior driving. IMPRESSION: Diffuse theta slowing consistent with a moderate diffuse encephalopathy. Likely some medication effect, but no epileptiform or seizure activity is noted. There were no hemisphere asymmetries. Chase Squires. MD Stacey DJM/rs , 07:48 AM , 07:52 AM
[2018-06-15] MEDS: Senna/Docusate Sodium 8.6/50 MG Tablet PO SCH ×2 (08:10→20:10)
[2018-06-15] MEDS: Famotidine PF Inj 20 MG/2 ML Vial IV.PUSH SCH ×2 (08:11→20:10)
[2018-06-15] MEDS: Heparin - SQ 10,000 UNITS/ML Vial SQ SCH ×2 (08:11→20:12)
--- NOTE | 2018-06-15 10:48 | P.PNNS ---
Subjective Interval history: f/u CT Brain yesterday showed resolution of previous ICH. EEG with moderate encephalopathy, no seizures. remains intubated, no sedation, no improvement in neuro status. Physical Exam Vital signs: Vital Signs 06/14/18 11:00 06/14/18 11:01 06/14/18 11:15 Temperature Pulse Rate 81 92 H Respiratory Rate 27 H 27 H Blood Pressure 137/63 160/68 H Pulse Oximetry 97 98 97 06/14/18 11:30 06/14/18 11:45 06/14/18 12:00 Temperature 99.2 F Pulse Rate 89 85 84 Respiratory Rate Blood Pressure 152/68 H 153/67 H 138/64 Pulse Oximetry 97 97 97 06/14/18 12:15 06/14/18 12:30 06/14/18 12:45 Temperature Pulse Rate 90 83 91 H Respiratory Rate Blood Pressure 149/67 H 141/64 H 157/69 H Pulse Oximetry 97 97 97 06/14/18 13:00 06/14/18 13:15 06/14/18 13:30 Temperature Pulse Rate 85 87 75 Respiratory Rate Blood Pressure 147/68 H 150/68 H 137/63 Pulse Oximetry 96 96 97 06/14/18 13:45 06/14/18 14:00 06/14/18 14:15 Temperature Pulse Rate 83 85 72 Respiratory Rate Blood Pressure 141/63 H 150/67 H 137/63 Pulse Oximetry 97 97 95 06/14/18 14:30 06/14/18 14:45 06/14/18 15:00 Temperature Pulse Rate 86 84 84 Respiratory Rate Blood Pressure 155/66 H 150/68 H 159/70 H Pulse Oximetry 95 95 95 06/14/18 15:15 06/14/18 15:30 06/14/18 15:45 Temperature Pulse Rate 93 H 90 83 Respiratory Rate Blood Pressure 168/74 H 153/68 H 156/67 H Pulse Oximetry 95 96 96 06/14/18 16:00 06/14/18 16:12 06/14/18 16:15 Temperature Pulse Rate 94 H 92 H Respiratory Rate 29 H Blood Pressure 160/69 H 158/69 H Pulse Oximetry 97 97 97 06/14/18 16:30 06/14/18 16:45 06/14/18 17:00 Temperature Pulse Rate 72 75 75 Respiratory Rate Blood Pressure 142/63 H 140/63 144/65 H Pulse Oximetry 97 97 97 06/14/18 17:15 06/14/18 17:30 06/14/18 17:45 Temperature Pulse Rate 74 86 91 H Respiratory Rate Blood Pressure 140/64 157/66 H 159/70 H Pulse Oximetry 97 97 97 06/14/18 18:00 06/14/18 18:15 06/14/18 19:00 Temperature Pulse Rate 85 90 80 Respiratory Rate 22 Blood Pressure 152/66 H 170/77 H 135/61 Pulse Oximetry 97 96 98 06/14/18 20:00 06/14/18 21:00 06/14/18 21:12 Temperature 99 F Pulse Rate 91 H 88 Respiratory Rate 24 25 H 26 H Blood Pressure 135/61 152/70 H Pulse Oximetry 98 98 98 06/14/18 22:00 06/14/18 23:00 06/14/18 23:38 Temperature Pulse Rate 90 96 H Respiratory Rate 26 H 24 29 H Blood Pressure 139/66 158/71 H Pulse Oximetry 99 100 99 06/15/18 00:00 06/15/18 00:01 06/15/18 01:00 Temperature 99.9 F H Pulse Rate 97 H 98 H 95 H Respiratory Rate 24 18 Blood Pressure 158/71 H Pulse Oximetry 98 98 99 06/15/18 01:01 06/15/18 02:00 06/15/18 02:01 Temperature Pulse Rate 94 H 94 H 95 H Respiratory Rate 22 25 H Blood Pressure 156/70 H 147/74 H Pulse Oximetry 99 99 98 06/15/18 02:31 06/15/18 03:00 06/15/18 03:16 Temperature Pulse Rate 94 H 81 Respiratory Rate 26 H 24 Blood Pressure 149/61 H 158/69 H 163/72 H Pulse Oximetry 99 98 06/15/18 03:31 06/15/18 03:46 06/15/18 04:00 Temperature 99.6 F Pulse Rate 86 87 92 H Respiratory Rate 24 26 H Blood Pressure 162/70 H 167/74 H Pulse Oximetry 99 99 99 06/15/18 04:11 06/15/18 04:16 06/15/18 05:00 Temperature Pulse Rate 81 Respiratory Rate 25 H 26 H Blood Pressure 155/66 H 158/72 H Pulse Oximetry 100 99 06/15/18 06:00 06/15/18 06:05 06/15/18 06:16 Temperature Pulse Rate 87 87 77 Respiratory Rate 25 H Blood Pressure 154/67 H 145/66 H 134/63 Pulse Oximetry 99 99 99 06/15/18 07:00 06/15/18 07:16 06/15/18 07:35 Temperature Pulse Rate 85 91 H Respiratory Rate 32 H Blood Pressure 167/72 H Pulse Oximetry 99 99 98 06/15/18 07:49 06/15/18 08:16 06/15/18 08:30 Temperature 99.7 F H Pulse Rate 89 93 H 92 H Respiratory Rate Blood Pressure 152/74 H 152/70 H Pulse Oximetry 99 97 06/15/18 09:00 Temperature Pulse Rate 84 Respiratory Rate Blood Pressure 153/68 H Pulse Oximetry 97 Intake & Output 06/14/18 06/15/18 06/15/18 18:59 06:59 18:59 Intake Total 1664.625 / 3401.494 4670 / 1248 709.625 / 709.625 Output Total 1810 / 1810 1575 / 1575 Balance -145.375 / -145.375 -327 / -327 709.625 / 709.625 Weight 137 kg Intake: IV 1414.625 / 1414.625 105 / 105 709.625 / 709.625 Diprivan 1000 mg/100 ml Inj 1, 100 / 100 000 mg In 100 ml @ 5 MCG/KG/MIN 3.972 mls/hr IV.CONT TITRATE PRN Rx#:[id number] Sodium Chloride 23.4% Inj 38.5 1009.625 / 1009.625 709.625 / 709.625 MEQ In Sterile Water for Inj 1, 000 ML @ 50 mls/hr IV.CONT . [id number] JACOB Rx#:[id number] Cubicin Inj 800 MG In NS Inj 100 / 100 100 ML @ 200 mls/hr IV.SIG Q48H JACOB Rx#:[id number] INVanz Inj 1,000 MG In NS Inj 100 / 100 100 ML @ 200 mls/hr IV.SIG Q24H JACOB Rx#:[id number] Keppra Inj 500 MG In NS Inj 100 105 / 105 105 / 105 ML @ 400 mls/hr IV.SIG Q12H JACOB Rx#:[id number] Tube Feeding 643 / 643 Water Bolus Amount 250 / 250 500 / 500 Output: Urine Amount (Catheter) 1750 / 1750 1575 / 1575 Indwelling Urethral Catheter 1750 / 1750 1575 / 1575 Wound Drainage # 1 Left Knee Hemovac Other: Date of Last Bowel Movement 06/14/18 06/15/18 06/14/18 # Bowel Movements 1 2 Narrative: intubated no eye opening no spontaneous movements withdraws LEs to plantar stimuli pupils equal and reactive - Urinary Catheter Management Indwelling Urethral Catheter Cath placed during this visit: yes Urethral indwelling: Yes Reason for continuing: Hourly intake/output Insertion date: 06/03/18 Insertion time: 03:00 Assessment and Plan - Plan 68 year old male with basal ganglia/brainstem hemorrhage, ? perimesencephalic hemorrhage. Stable GCS-5T Septicemia, Bacteremia, f/u CT Brain 06/14/18 showed resolution of previous ICH EEG 06/14 with moderate encephalopathy, no seizures Plan: Continue critical care cont antibiotic therapy per ID neuro checks check ammonia levels
[2018-06-15] MEDS: DAPTOmycin Inj 800 MG in Sodium Chlor 0.9% Inj 100 ML IV.SIG SCH (13:02)
--- NOTE | 2018-06-15 13:46 | P.PNID ---
Subjective Remarks: Patient is a 68-year-old male, brought into the hospital initially at [facility] for evaluation of weakness and slurred speech. It apparently has been present for several days. He was found on the floor of his mobile home. At [facility] he was found to be febrile, WBC up to 21,000, urinalysis with pyuria, creatinine 2.33, and lactic acid was elevated. CT of the head showed focal hemorrhage in the posterior fossa. Patient was transferred to [facility] for neurosurgical evaluation. Patient since admission has had elevated temperature. His blood cultures done on admission are now reported as growing gram-positive cocci, MRSA. His urine culture is also growing MRSA. On evaluation in the intensive care unit, he is awake, and interactive. He looks slightly tachypneic at rest and and on nasal O2. He has some confusion but mostly his oriented. His chest x-ray is normal. Echo is showing calcification in the aortic valve. No vegetations seen. Infectious disease consultation has been requested to assist with evaluation and treatment of patient with MRSA bacteremia. Notes reviewed D/W RN Temps better On CPAP Has new (+) BC 06/13 Had I and D L knee 06/12 LAURIE no vegetation seen Not on pressors. No rash No diarrhea Antibiotics: Cubicin Invanz Lines: PIV Past Medical History: Diabetes History of MRSA infection Onset Date: ~06/03/18 Hypertension Obesity UTI (urinary tract infection) Allergies/Adverse Reactions: Allergies No Known Allergies Allergy (Verified 06/03/18 01:32) Objective Vital Signs 06/14/18 14:00 06/14/18 14:15 06/14/18 14:30 Temperature Pulse Rate 85 72 86 Respiratory Rate Blood Pressure 150/67 H 137/63 155/66 H Pulse Oximetry 97 95 95 06/14/18 14:45 06/14/18 15:00 06/14/18 15:15 Temperature Pulse Rate 84 84 93 H Respiratory Rate Blood Pressure 150/68 H 159/70 H 168/74 H Pulse Oximetry 95 95 95 06/14/18 15:30 06/14/18 15:45 06/14/18 16:00 Temperature Pulse Rate 90 83 94 H Respiratory Rate Blood Pressure 153/68 H 156/67 H 160/69 H Pulse Oximetry 96 96 97 06/14/18 16:12 06/14/18 16:15 06/14/18 16:30 Temperature Pulse Rate 92 H 72 Respiratory Rate 29 H Blood Pressure 158/69 H 142/63 H Pulse Oximetry 97 97 97 06/14/18 16:45 06/14/18 17:00 06/14/18 17:15 Temperature Pulse Rate 75 75 74 Respiratory Rate Blood Pressure 140/63 144/65 H 140/64 Pulse Oximetry 97 97 97 06/14/18 17:30 06/14/18 17:45 06/14/18 18:00 Temperature Pulse Rate 86 91 H 85 Respiratory Rate Blood Pressure 157/66 H 159/70 H 152/66 H Pulse Oximetry 97 97 97 06/14/18 18:15 06/14/18 19:00 06/14/18 20:00 Temperature 99 F Pulse Rate 90 80 91 H Respiratory Rate 22 24 Blood Pressure 170/77 H 135/61 135/61 Pulse Oximetry 96 98 98 06/14/18 21:00 06/14/18 21:12 06/14/18 22:00 Temperature Pulse Rate 88 90 Respiratory Rate 25 H 26 H 26 H Blood Pressure 152/70 H 139/66 Pulse Oximetry 98 98 99 06/14/18 23:00 06/14/18 23:38 06/15/18 00:00 Temperature 99.9 F H Pulse Rate 96 H 97 H Respiratory Rate 24 29 H 24 Blood Pressure 158/71 H Pulse Oximetry 100 99 98 06/15/18 00:01 06/15/18 01:00 06/15/18 01:01 Temperature Pulse Rate 98 H 95 H 94 H Respiratory Rate 18 22 Blood Pressure 158/71 H 156/70 H Pulse Oximetry 98 99 99 06/15/18 02:00 06/15/18 02:01 06/15/18 02:31 Temperature Pulse Rate 94 H 95 H 94 H Respiratory Rate 25 H 26 H Blood Pressure 147/74 H 149/61 H Pulse Oximetry 99 98 99 06/15/18 03:00 06/15/18 03:16 06/15/18 03:31 Temperature Pulse Rate 81 86 Respiratory Rate 24 Blood Pressure 158/69 H 163/72 H Pulse Oximetry 98 99 06/15/18 03:46 06/15/18 04:00 06/15/18 04:11 Temperature 99.6 F Pulse Rate 87 92 H Respiratory Rate 24 26 H 25 H Blood Pressure 162/70 H 167/74 H Pulse Oximetry 99 99 100 06/15/18 04:16 06/15/18 05:00 06/15/18 06:00 Temperature Pulse Rate 81 87 Respiratory Rate 26 H 25 H Blood Pressure 155/66 H 158/72 H 154/67 H Pulse Oximetry 99 99 06/15/18 06:05 06/15/18 06:16 06/15/18 07:00 Temperature Pulse Rate 87 77 85 Respiratory Rate Blood Pressure 145/66 H 134/63 Pulse Oximetry 99 99 99 06/15/18 07:16 06/15/18 07:35 06/15/18 07:49 Temperature Pulse Rate 91 H 89 Respiratory Rate 32 H Blood Pressure 167/72 H Pulse Oximetry 99 98 06/15/18 08:16 06/15/18 08:30 06/15/18 09:00 Temperature 99.7 F H Pulse Rate 93 H 92 H 84 Respiratory Rate Blood Pressure 152/74 H 152/70 H 153/68 H Pulse Oximetry 99 97 97 06/15/18 09:30 06/15/18 10:00 06/15/18 10:30 Temperature Pulse Rate 85 87 96 H Respiratory Rate Blood Pressure 152/70 H 148/70 H 165/77 H Pulse Oximetry 97 98 97 06/15/18 11:00 06/15/18 11:26 Temperature Pulse Rate 76 Respiratory Rate 30 H Blood Pressure 120/59 L Pulse Oximetry 99 99 Intake & Output 06/14/18 06/15/18 06/15/18 18:59 06:59 18:59 Intake Total 1664.625 / 1985.340 2944 / 1248 709.625 / 709.625 Output Total 1810 / 1810 1575 / 1575 Balance -145.375 / -145.375 -327 / -327 709.625 / 709.625 Weight 137 kg Intake: IV 1414.625 / 1414.625 105 / 105 709.625 / 709.625 Diprivan 1000 mg/100 ml Inj 1, 100 / 100 000 mg In 100 ml @ 5 MCG/KG/MIN 3.972 mls/hr IV.CONT TITRATE PRN Rx#:[id number] Sodium Chloride 23.4% Inj 38.5 1009.625 / 1009.625 709.625 / 709.625 MEQ In Sterile Water for Inj 1, 000 ML @ 50 mls/hr IV.CONT . [id number] [facility] Rx#:[id number] Cubicin Inj 800 MG In NS Inj 100 / 100 100 ML @ 200 mls/hr IV.SIG Q48H [facility] Rx#:[id number] INVanz Inj 1,000 MG In NS Inj 100 / 100 100 ML @ 200 mls/hr IV.SIG Q24H [facility] Rx#:[id number] Keppra Inj 500 MG In NS Inj 100 105 / 105 105 / 105 ML @ 400 mls/hr IV.SIG Q12H [facility] Rx#:[id number] Tube Feeding 643 / 643 Water Bolus Amount 250 / 250 500 / 500 Output: Urine Amount (Catheter) 1750 / 1750 1575 / 1575 Indwelling Urethral Catheter 1750 / 1750 1575 / 1575 Wound Drainage # 1 Left Knee Hemovac Other: Date of Last Bowel Movement 06/14/18 06/15/18 06/14/18 # Bowel Movements 1 2 06/14/18 16:10 Clean Catch Urine Urine Culture - Preliminary Yeast - ID to follow 06/13/18 19:00 Blood - Peripheral Aerobic Blood Culture - Preliminary gram positive cocci 06/13/18 19:00 Blood - Peripheral Anaerobic Blood Culture - Preliminary No growth in 2 days 06/13/18 18:50 Blood - Peripheral Aerobic Blood Culture - Preliminary No growth in 2 days 06/13/18 18:50 Blood - Peripheral Anaerobic Blood Culture - Preliminary No growth in 2 days 06/11/18 07:41 Blood - Peripheral Aerobic Blood Culture - Final S. aureus MRSA 06/11/18 07:41 Blood - Peripheral Anaerobic Blood Culture - Preliminary No growth in 4 days 06/10/18 06:20 Blood - Peripheral Aerobic Blood Culture - Final S. aureus MRSA 06/10/18 06:20 Blood - Peripheral Anaerobic Blood Culture - Final No growth in 5 days 06/14/18 16:10 Sputum - Endotracheal Gram Stain - Final 06/14/18 16:10 Sputum - Endotracheal Sputum Culture - Pending 06/12/18 13:09 Tissue - Knee Gram Stain - Final 06/12/18 13:09 Tissue - Knee Wound Culture - Final S. aureus MRSA 06/12/18 13:10 Other Acid Fast Bacilli Smear - Final No acid fast bacilli seen 06/12/18 13:10 Other Mycobacterial Culture - Pending 06/12/18 13:09 Tissue - Knee Acid Fast Bacilli Smear - Final No acid fast bacilli seen 06/12/18 13:09 Tissue - Knee Mycobacterial Culture - Pending 06/12/18 13:10 Tissue - Knee Gram Stain - Final 06/12/18 13:10 Tissue - Knee Wound Culture - Final S. aureus MRSA 06/12/18 13:10 Other Fungal Smear - Final No fungal elements seen 06/12/18 13:10 Other Fungal Culture - Pending 06/12/18 13:09 Tissue - Knee Fungal Smear - Final No fungal elements seen 06/12/18 13:09 Tissue - Knee Fungal Culture - Pending 06/08/18 14:00 Blood - Peripheral Aerobic Blood Culture - Final S. aureus MRSA 06/08/18 14:00 Blood - Peripheral Anaerobic Blood Culture - Final No growth in 5 days 06/08/18 05:54 Blood - Peripheral Aerobic Blood Culture - Final S. aureus MRSA 06/08/18 05:54 Blood - Peripheral Anaerobic Blood Culture - Final No growth in 5 days 06/07/18 14:19 Blood - Peripheral Aerobic Blood Culture - Final S. aureus MRSA 06/07/18 14:19 Blood - Peripheral Anaerobic Blood Culture - Final No growth in 5 days Lab - Hematology Results 06/14/18 06/15/18 04:16 04:13 WBC 13.8 H 9.7 RBC 3.13 L 2.94 L Hgb 9.3 L 9.0 L Hct 28.1 L 26.5 L MCV 89.7 90.2 MCH 29.6 30.5 MCHC 33.0 33.8 RDW 16.9 16.8 Plt Count 254 D 255 MPV 8.9 8.7 Neut % (Auto) 84.2 H 79.7 H Lymph % (Auto) 8.8 L 11.4 [place] % (Auto) 6.0 7.6 Eos % (Auto) 0.6 1.0 Baso % (Auto) 0.4 0.3 Neut # (Auto) 11.6 H 7.7 Lymph # (Auto) 1.2 1.1 [place] # (Auto) 0.8 0.7 Eos # (Auto) 0.1 0.1 Baso # (Auto) 0.1 0.0 WBC Differential . . Differential Comment Auto diff final Auto diff final Lab - Chemistry Results 06/13/18 06/13/1806/13/18 16:05 21:49 23:10 Sodium Potassium Chloride Carbon Dioxide Anion Gap BUN Creatinine Estimated GFR POC Glucose 181 H 169 H 166 H Random Glucose Calcium Magnesium Total Bilirubin AST ALT Alkaline Phosphatase Ammonia Total Protein Albumin 06/14/18 06/14/18 06/14/18 03:10 04:16 07:41 Sodium 152 H Potassium 4.7 Chloride 126 H Carbon Dioxide 17.4 L Anion Gap 9 BUN 70 H Creatinine 2.49 H Estimated GFR 26 L POC Glucose 175 H 171 H Random Glucose 174 H Calcium 7.9 L Magnesium Total Bilirubin AST ALT Alkaline Phosphatase Ammonia Total Protein Albumin 06/14/18 06/14/18 06/14/18 12:42 15:53 21:37 Sodium Potassium Chloride Carbon Dioxide Anion Gap BUN Creatinine Estimated GFR POC Glucose 156 H 162 H 160 H Random Glucose Calcium Magnesium Total Bilirubin AST ALT Alkaline Phosphatase Ammonia Total Protein Albumin 06/15/18 06/15/18 06/15/18 00:28 04:13 04:17 Sodium 153 H Potassium 4.8 Chloride 126 H Carbon Dioxide 18.2 L Anion Gap 9 BUN 64 H Creatinine 2.32 H Estimated GFR 28 L POC Glucose 141 H 156 H Random Glucose 161 H Calcium 8.2 L Magnesium 2.7 H Total Bilirubin 0.6 AST 45 H ALT 37 Alkaline Phosphatase 74 Ammonia Total Protein 6.7 Albumin 1.6 L 06/15/18 06/15/18 06/15/18 07:36 10:53 12:43 Sodium Potassium Chloride Carbon Dioxide Anion Gap BUN Creatinine Estimated GFR POC Glucose 134 H 188 H Random Glucose Calcium Magnesium Total Bilirubin AST ALT Alkaline Phosphatase Ammonia 32 Total Protein Albumin Imaging: ITS Impressions Abdomen/Bladder Ultrasound 06/03/18 00:00 CONCLUSION: 1. Bilateral simple cysts within the kidneys as above. 2. No findings to indicate renal obstruction. 3. Renal cortex appears of adequate thickness. Abdomen/Pelvis CT 06/04/18 00:00 CONCLUSION: 1. The second and third portions of the duodenum appear mildly prominent and indistinct with mild surrounding inflammatory change extending into the adjacent mesentery. The findings are concerning for duodenitis. 2. Bilateral renal cysts. 3. Minimal pleural effusions and atelectasis in the lung bases. 4. The gallbladder is unremarkable. Head MRI 06/04/18 00:00 CONCLUSION: 1. There is a focal stable area of subacute hemorrhage adjacent to the posterior right midbrain measuring approximately 1.5 cm in length. This is not significantly changed in its overall appearance compared to the recent CT scan of the brain. No definite new areas of hemorrhage are demonstrated. 2. Stable diffuse bilateral cortical atrophy. Head MRA 06/04/18 00:00 CONCLUSION: 1. Atherosclerotic changes involving the left M2 segment. 2. No aneurysm or vascular abnormality identified. 3. Visualization of the known blood products along the right side of the brainstem. Neck MRA 06/04/18 00:00 CONCLUSION: 1. Unremarkable MRA of the carotids. Percent stenosis is calculated using the diameter of the stenotic region over the diameter of the normal distal internal carotid artery Abdomen X-Ray 06/05/18 00:00 CONCLUSION: Feeding tube distal tip is in the gastric body. Knee X-Ray 06/06/18 00:00 CONCLUSION: 1. Moderate suprapatellar effusion. 2. Prominent degenerative osteoarthritis. Knee MRI 06/08/18 07:08 CONCLUSION: 1. Nonspecific joint effusion and moderate severity synovitis. Also nonspecific subcutaneous edema. Nothing organized or drainable. 2. Medial compartment predominant osteoarthritis. 3. Tears of the medial and lateral menisci as above. Cervical Spine MRI 06/08/18 07:09 CONCLUSION: 1. Increased signal anterior to the C6-C7 disc level and between the prominent anterior marginal osteophytes. The anterior longitudinal ligament is not seen. This could be the sequela of an injury in this region. The remaining aspect of the disc is intact. The vertebral bodies demonstrate normal signal. Prevertebral soft tissue swelling is not seen. This could be chronic. Fluid resembling a pseudarthrosis can also develop between osteophytes potentially. The remaining soft tissues appear intact. 2. Mild left lateral recess disc protrusion at the C2-C3 level. 3. Mild central disc protrusion at the C3-C4 level. 4. Mild disc bulge at the C5-C6 level and minimal disc bulge at the C4-C5 level. 5. Scattered neural foraminal narrowing as described above. Lumbar Spine MRI 06/08/18 07:09 CONCLUSION: 1. Severe stenosis at the L4-L5 level. 2. Moderate stenosis at the L2-L3 level. 3. Minimal disc bulge at the L1-L2 level with a small inferiorly directed extruded disc fragment at the right side. Significant stenosis is not seen at this level. 4. No focal fluid collection is identified. Thoracic Spine MRI 06/08/18 07:09 CONCLUSION: 1. Limited, noncontrast examination with no evidence of abscess. 2. Small posterior central protrusion at T5-6 with mild flattening of the anterior cord. 3. Posterior disc bulge at T6-7 with mild flattening of the anterior thecal sac. Head CT 06/14/18 00:00 CONCLUSION: Subarachnoid hemorrhage in the basal cisterns no longer seen. No acute intracranial findings identified. . Chest X-Ray 06/15/18 06:00 CONCLUSION: No significant interval change with persistent patchy opacity at the left lung base. Physical Exam: GENERAL: Sedated on the vent, on CPAP, not in respiratory distress. SKIN: Warm and dry. No generalized rash, no ecchymoses and no evidence of embolic lesions. HEAD: Atraumatic. Normocephalic. No temporal wasting, or tenderness. EYES: [place] conjunctiva. No petechia or hemorrhage. Pupils equal, round and reactive to light. No scleral icterus. No injection or drainage. EARS, NOSE AND THROAT: Nose without bleeding or purulent nasal discharge. Orally intubated NECK: Trachea midline. Supple and not tender, no meningeal signs CARDIOVASCULAR: Regular rate and rhythm. No murmurs, rubs or gallops heard RESPIRATORY: Clear to auscultation. Breath sounds equal bilaterally. No rales , wheezing or rhonchi ABDOMEN: Soft, obese, globular, distended bowel sounds present and normoactive. EXTREMITIES: Left knee dressing intact, drain in place with sanguinous discharge NEUROLOGICAL: Sedated. PSYCHIATRIC: Unable to assess. LINE: No evidence of infection : [place] in place, urine better Assessment and Plan - Plan Impression MRSA sepsis on presentation, worrisome for IE - LAURIE negative - MRSA not a common pathogen - so far no obvious source for the MRSA, and very likely endovascular - BC still (+) - Has septic L knee UTI - first UC with MRSA; now with E coli ESBL Septic L knee, MRSA Hemorrhage posterior fossa - no aneurysm: MRA negative for mycotic aneurism Hx DM, HTN, Obesity Renal insufficiency, improving Fevers, up again Respiratory failure Recommendation Follow C/S Continue Cubicin Continue Invanz - will give until 06/19 Repeat BC Monitor progress Follow temps Follow CBC Weaning per CCM D/W RN
--- NOTE | 2018-06-15 14:08 | P.PNCC ---
Subjective Subjective Remarks/Hospital Course: 06/03: Patient is a 68-year-old male with past medical history significant for type 2 diabetes, hypertension, morbid obesity who presented to the [facility] emergency department with weakness and slurred speech. Symptoms present for 2 days, apparently he was found on the floor of his mobile home. He was noted to have high fever at the [facility] his WBC count was 21.3 UA was positive. His sodium was 134 BUN 50 with a creatinine of 2.33 bicarb was 16 lactic acid was 6.8. CPK more than 3000 at the outside hospital. A CT of the head showed focal hemorrhage into the right quadrigeminal plate cistern. Dr. Hopkins was contacted who accepted the patient and requested admission to critical care. Patient was accepted to [facility] at [place] Dr. Deluca evaluated the patient in the [facility], he is lying in the bed. Slightly tachypneic moderate distress. Patient is oriented to place and person. CT of the head repeated here at [place] showed hemorrhage along the posterior aspect of the brainstem measuring up to 2.8 cm in maximal diameter. Mild mass effect on the brainstem. No hydrocephalus. I have started the patient on Cardene infusion for tight blood pressure control. Zosyn for UTI. 2% saline will be started to keep sodium above 150. Avoid mannitol due to renal failure. Keppra for seizure prophylaxis. I am unable to find coags but platelet count was normal. 06/04: MRSA bacteremia ob blood cultures drawn on admission. Currently on precedex, on room air. Awake, follows commands, speech, unintelligible. Started on IV vanc. ID consulted as concern for septic emboli/ endocarditis as cause for brainstem bleed. 06/05: 48 hours following a mid brain spontaneous hemorrhage complicated by numerous MRSA blood cultures. Blood pressure acceptably well controlled. Fever pattern persists. Patient tolerating extubation and protecting airway adequately. Taper completely off Precedex. Serum osmolality acceptably concentrated. 06/06: Serum osmolality acceptable, will allow sodium to drift back into the lower 150s now. Patient is alert and interactive. He moves 4 limbs spontaneously. Episodic fevers to 102+. We will continue with infectious disease workup for source of bacteremia. Endocarditis remains high on the list of possibilities. 06/07: Awake, alert, following commands. Speech very slurred however responds appropriately. Slight disorientation. Thought he was in [place]. Knows he is in the hospital. Complains of back pain. 06/08: Drowsy, arousable, tachypneic. Sodium up to 163, started on D5W and free water. Creatinine up. Tolerating tube feeds. Awaiting MRI. Will need LAURIE. Will need intubation probably for airway and in order to transport for MRI and LAURIE. 06/09: Patient intubated and placed on mechanical ventilation on 06/09. Dr. Hopkins has cleared patient for LAURIE/anticoagulation/valve surgery if needed. We are awaiting LAURIE for further evaluation of MRSA bacteremia by cardiology to determine source. Orthopedics evaluating left knee synovitis/effusion/meniscal tear. 06/10: Underwent aspiration of the left knee yesterday which is growing MRSA. Remains sedated, orally intubated on mechanical ventilation. Underwent LAURIE today which did not reveal any vegetation. Being followed by orthopedics/ID/ neurosurgery. 06/11: Remains orally intubated on mechanical ventilation. Scheduled for OR for left knee septic arthritis with Dr. Carlson. 06/12: Remains orally intubated on mechanical ventilation. Waiting for OR for left knee septic arthritis with Dr. Carlson 06/13: Remains intubated sedated. On sedation hold localizes to pain. Status post left knee lateral arthrotomy with irrigation and debridement. Fluid culture growing MRSA 06/14: Remains intubated sedated. On sedation hold now not waking up or following commands weakly withdraws extremities. WBC count increasing. Sodium coming down with hypotonic saline. 06/15: All sedation now held more than 36 hours. No significant improvement in mentation. Spontaneously moving upper extremity withdraws lowers to pain. CT of the head yesterday essentially unchanged with resolution of previously seen subarachnoid hemorrhage in the basal cisterns Objective Vital Signs / I&O: Vital Signs 06/14/18 14:00 06/14/18 14:15 06/14/18 14:30 Temperature Pulse Rate 85 72 86 Respiratory Rate Blood Pressure 150/67 H 137/63 155/66 H Pulse Oximetry 97 95 95 06/14/18 14:45 06/14/18 15:00 06/14/18 15:15 Temperature Pulse Rate 84 84 93 H Respiratory Rate Blood Pressure 150/68 H 159/70 H 168/74 H Pulse Oximetry 95 95 95 06/14/18 15:30 06/14/18 15:45 06/14/18 16:00 Temperature Pulse Rate 90 83 94 H Respiratory Rate Blood Pressure 153/68 H 156/67 H 160/69 H Pulse Oximetry 96 96 97 06/14/18 16:12 06/14/18 16:15 06/14/18 16:30 Temperature Pulse Rate 92 H 72 Respiratory Rate 29 H Blood Pressure 158/69 H 142/63 H Pulse Oximetry 97 97 97 06/14/18 16:45 06/14/18 17:00 06/14/18 17:15 Temperature Pulse Rate 75 75 74 Respiratory Rate Blood Pressure 140/63 144/65 H 140/64 Pulse Oximetry 97 97 97 06/14/18 17:30 06/14/18 17:45 06/14/18 18:00 Temperature Pulse Rate 86 91 H 85 Respiratory Rate Blood Pressure 157/66 H 159/70 H 152/66 H Pulse Oximetry 97 97 97 06/14/18 18:15 06/14/18 19:00 06/14/18 20:00 Temperature 99 F Pulse Rate 90 80 91 H Respiratory Rate 22 24 Blood Pressure 170/77 H 135/61 135/61 Pulse Oximetry 96 98 98 06/14/18 21:00 06/14/18 21:12 06/14/18 22:00 Temperature Pulse Rate 88 90 Respiratory Rate 25 H 26 H 26 H Blood Pressure 152/70 H 139/66 Pulse Oximetry 98 98 99 06/14/18 23:00 06/14/18 23:38 06/15/18 00:00 Temperature 99.9 F H Pulse Rate 96 H 97 H Respiratory Rate 24 29 H 24 Blood Pressure 158/71 H Pulse Oximetry 100 99 98 06/15/18 00:01 06/15/18 01:00 06/15/18 01:01 Temperature Pulse Rate 98 H 95 H 94 H Respiratory Rate 18 22 Blood Pressure 158/71 H 156/70 H Pulse Oximetry 98 99 99 06/15/18 02:00 06/15/18 02:01 06/15/18 02:31 Temperature Pulse Rate 94 H 95 H 94 H Respiratory Rate 25 H 26 H Blood Pressure 147/74 H 149/61 H Pulse Oximetry 99 98 99 06/15/18 03:00 06/15/18 03:16 06/15/18 03:31 Temperature Pulse Rate 81 86 Respiratory Rate 24 Blood Pressure 158/69 H 163/72 H Pulse Oximetry 98 99 06/15/18 03:46 06/15/18 04:00 06/15/18 04:11 Temperature 99.6 F Pulse Rate 87 92 H Respiratory Rate 24 26 H 25 H Blood Pressure 162/70 H 167/74 H Pulse Oximetry 99 99 100 06/15/18 04:16 06/15/18 05:00 06/15/18 06:00 Temperature Pulse Rate 81 87 Respiratory Rate 26 H 25 H Blood Pressure 155/66 H 158/72 H 154/67 H Pulse Oximetry 99 99 06/15/18 06:05 06/15/18 06:16 06/15/18 07:00 Temperature Pulse Rate 87 77 85 Respiratory Rate Blood Pressure 145/66 H 134/63 Pulse Oximetry 99 99 99 06/15/18 07:16 06/15/18 07:35 06/15/18 07:49 Temperature Pulse Rate 91 H 89 Respiratory Rate 32 H Blood Pressure 167/72 H Pulse Oximetry 99 98 06/15/18 08:16 06/15/18 08:30 06/15/18 09:00 Temperature 99.7 F H Pulse Rate 93 H 92 H 84 Respiratory Rate Blood Pressure 152/74 H 152/70 H 153/68 H Pulse Oximetry 99 97 97 06/15/18 09:30 06/15/18 10:00 06/15/18 10:30 Temperature Pulse Rate 85 87 96 H Respiratory Rate Blood Pressure 152/70 H 148/70 H 165/77 H Pulse Oximetry 97 98 97 06/15/18 11:00 06/15/18 11:26 Temperature Pulse Rate 76 Respiratory Rate 30 H Blood Pressure 120/59 L Pulse Oximetry 99 99 Intake & Output 06/14/18 06/15/18 06/15/18 18:59 06:59 18:59 Intake Total 1664.625 / 4307.721 6779 / 1248 709.625 / 709.625 Output Total 1810 / 1810 1575 / 1575 Balance -145.375 / -145.375 -327 / -327 709.625 / 709.625 Weight 137 kg Intake: IV 1414.625 / 1414.625 105 / 105 709.625 / 709.625 Diprivan 1000 mg/100 ml Inj 1, 100 / 100 000 mg In 100 ml @ 5 MCG/KG/MIN 3.972 mls/hr IV.CONT TITRATE PRN Rx#:[id number] Sodium Chloride 23.4% Inj 38.5 1009.625 / 1009.625 709.625 / 709.625 MEQ In Sterile Water for Inj 1, 000 ML @ 50 mls/hr IV.CONT . [id number] JACOB Rx#:[id number] Cubicin Inj 800 MG In NS Inj 100 / 100 100 ML @ 200 mls/hr IV.SIG Q48H JACOB Rx#:[id number] INVanz Inj 1,000 MG In NS Inj 100 / 100 100 ML @ 200 mls/hr IV.SIG Q24H JACOB Rx#:[id number] Keppra Inj 500 MG In NS Inj 100 105 / 105 105 / 105 ML @ 400 mls/hr IV.SIG Q12H JACOB Rx#:[id number] Tube Feeding 643 / 643 Water Bolus Amount 250 / 250 500 / 500 Output: Urine Amount (Catheter) 1750 / 1750 1575 / 1575 Indwelling Urethral Catheter 1750 / 1750 1575 / 1575 Wound Drainage 60 / 60 # 1 Left Knee Hemovac 60 / 60 Other: Date of Last Bowel Movement 06/14/18 06/15/18 06/14/18 # Bowel Movements 1 2 Result Diagrams: 06/15/18 04:13 06/15/18 04:13 Objective Remarks: GENERAL: 68-year-old male lying in ICU bed , encephalopathic, orally intubated on mechanical ventilation SKIN: Focused skin assessment warm/dry. HEAD: Atraumatic. Normocephalic. EYES: Pupils equal and round. No scleral icterus. No injection or drainage. ENT: No nasal bleeding or discharge. ET tube in place, oral cavity dry. Trachea midline. CARDIOVASCULAR: Normal S1-S2. No murmurs. Regular rate and rhythm. RESPIRATORY: Orally intubated on mechanical ventilation, air entry decreased bilaterally at bases, few rhonchi, no adventitious sounds GASTROINTESTINAL: Abdomen soft, non-tender, nondistended. BS present. No guarding. MUSCULOSKELETAL: Warm, well perfused. Left knee Hemovac drain in place NEUROLOGICAL: Encephalopathic of all sedation, orally intubated, Pupils equal 3mm, reactive. Patient localizes to pain with UE, slightly withdraws the lower extremities. No spontaneous eye opening do not follow commands Assessment and Plan - Problem List (1) 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 Status: Acute (2) Encephalopathy acute Code(s): G93.40 - Encephalopathy, unspecified Status: Acute (3) Acute kidney failure Code(s): N17.9 - Acute kidney failure, unspecified Status: Acute (4) Severe sepsis Code(s): A41.9 - Sepsis, unspecified organism; R65.20 - Severe sepsis without septic shock Status: Acute (5) Metabolic acidemia Code(s): E87.2 - Acidosis Status: Acute (6) UTI (urinary tract infection) Code(s): N39.0 - Urinary tract infection, site not specified Status: Acute (7) Lactic acidosis Code(s): E87.2 - Acidosis Status: Acute (8) Rhabdomyolysis Code(s): M62.82 - Rhabdomyolysis Status: Acute (9) Obesity Code(s): E66.9 - Obesity, unspecified Status: Chronic (10) Hypertension Code(s): I10 - Essential (primary) hypertension Status: Chronic (11) Diabetes Code(s): E11.9 - Type 2 diabetes mellitus without complications Status: Chronic - Assessment and Plan Plan: NEURO: Brainstem hemorrhage measuring up to 2.8 cm in maximal diameter, mild mass effect Metabolic encephalopathy -Repeat CT 06/14: Subarachnoid hemorrhage in the basal cisterns no longer seen. Check MRI -EEG done yesterday 06/14/2018 shows moderate encephalopathy -Neurosurgery Dr. Hopkins -Currently on free water/1/2 NS for hypernatremia -Close neuro monitoring. Prev MRI/MRA brain results noted -Head CT 06/08 shows resolving brainstem hemorrhage. -Keppra for seizure prophylaxis -Discontinue all sedation DC propofol, Precedex, Fentanyl -With MRSA bacteremia suspect septic emboli with mycotic aneurism vs hypertensive bleed. -MRI spine reviewed, no evidence of epidural abscess RESP: Acute respiratory failure on mechanical ventilation Past smoking -DuoNeb every as needed -Continue mechanical ventilation, vent bundle, bronchodilators as needed -Daily CPAP trials. -Mental status will not permit extubation -Intubated on 06/08/2018, vent day 8 patient may need tracheostomy CV: Lactic acidemia Hypotension History of hypertension -Initial lactic acid at the outside hospital was 6.8 -Resuscitated with normal saline IV fluids, transthoracic echo -Half NS due to hypernatremia -Cardiology Dr. Odonnell consulted to perform LAURIE to evaluate for endocarditis -LAURIE 06/10-ve for any vegetations. GI: -NG tube in place. Tube feeds and advance to goal as tolerated. : Acute kidney injury Rhabdomyolysis -Monitor renal function closely. Replace [place] catheter due to candiduria, repeat culture -Strict intake output, monitor and replete electrolytes. -Nephrology following for rising creatinine-suspect multifactorial secondary to sepsis/vancomycin/gentamicin toxicity/IV contrast exposure. -Continue hypotonic saline for hypernatremia, increase rate of quarter normal saline 200 mL/h ID: Severe sepsis ESBL E. coli UTI MRSA bacteremia MRSA left knee septic arthritis -On Cubicin. Cefepime changed to Invanz on 06/10 for ESBL E. coli in urine culture -Status post left knee lateral arthrotomy with irrigation and debridement. Fluid culture growing MRSA -s/p MRI left knee due to swelling -orthopedics performed left knee aspiration on 06/09 with drainage of 60 cc of purulent cloudy fluid which is growing MRSA. -Vancomycin and gentamicin discontinued on 06/08 per ID due to worsening renal function. Blood cultures positive for MRSA (10/07) - ID Dr. Rodriguez -LAURIE negative for vegetation on 06/10 -Ortho following and to decide further management for left knee septic arthritis - HEME: Leukocytosis secondary to sepsis -Monitor CBC, coags ENDO: Type 2 diabetes -Sliding scale insulin -Basal long-acting insulin PROPH: -Bilateral lower extremity SCDs. IV famotidine. Subcutaneous heparin for DVT prophylaxis which was cleared by neurosurgery. LINES: -Utilize peripheral IVs, central line if needed Overall impression: Blood pressure control remains problematic and will need additional scheduled medication. Agitation appears better controlled. Bacteremia remains crucial and possibly life-threatening problem 06/08: D/W Dr. Hopkins. Called patient's son Abraham Bautista at [phone] and updated him regarding current clinical status and plan to intubate and place on mech ventilation due to concern regarding airway protection and in order to safely get imaging and possibly LAURIE and he voiced understanding and was agreeable. 06/09: Discussed with ID, discussed with Dr. Hopkins. Awaiting LAURIE. Start tube feeds after LAUREI 06/10, !08/12: D/W ID condition critical. time spent on critical care excluding procedures: 30 min (1) Brain stem hemorrhage Qualifiers: Intracerebral hemorrhage etiology: nontraumatic
--- NOTE | 2018-06-15 15:38 | P.PNNP ---
Subjective Interval history: Remains on ventilator on no sedation. Moves lower extremities to pain. Creatinine has at 2.32 today, non oliguric. <Azul Lam - Last Filed: 06/15/18 15:31> Physical Exam Vital signs: Vital Signs 06/14/18 15:45 06/14/18 16:00 06/14/18 16:12 Temperature Pulse Rate 83 94 H Respiratory Rate 29 H Blood Pressure 156/67 H 160/69 H Pulse Oximetry 96 97 97 06/14/18 16:15 06/14/18 16:30 06/14/18 16:45 Temperature Pulse Rate 92 H 72 75 Respiratory Rate Blood Pressure 158/69 H 142/63 H 140/63 Pulse Oximetry 97 97 97 06/14/18 17:00 06/14/18 17:15 06/14/18 17:30 Temperature Pulse Rate 75 74 86 Respiratory Rate Blood Pressure 144/65 H 140/64 157/66 H Pulse Oximetry 97 97 97 06/14/18 17:45 06/14/18 18:00 06/14/18 18:15 Temperature Pulse Rate 91 H 85 90 Respiratory Rate Blood Pressure 159/70 H 152/66 H 170/77 H Pulse Oximetry 97 97 96 06/14/18 19:00 06/14/18 20:00 06/14/18 21:00 Temperature 99 F Pulse Rate 80 91 H 88 Respiratory Rate 22 24 25 H Blood Pressure 135/61 135/61 152/70 H Pulse Oximetry 98 98 98 06/14/18 21:12 06/14/18 22:00 06/14/18 23:00 Temperature Pulse Rate 90 96 H Respiratory Rate 26 H 26 H 24 Blood Pressure 139/66 158/71 H Pulse Oximetry 98 99 100 06/14/18 23:38 06/15/18 00:00 06/15/18 00:01 Temperature 99.9 F H Pulse Rate 97 H 98 H Respiratory Rate 29 H 24 18 Blood Pressure 158/71 H Pulse Oximetry 99 98 98 06/15/18 01:00 06/15/18 01:01 06/15/18 02:00 Temperature Pulse Rate 95 H 94 H 94 H Respiratory Rate 22 25 H Blood Pressure 156/70 H Pulse Oximetry 99 99 99 06/15/18 02:01 06/15/18 02:31 06/15/18 03:00 Temperature Pulse Rate 95 H 94 H 81 Respiratory Rate 26 H 24 Blood Pressure 147/74 H 149/61 H 158/69 H Pulse Oximetry 98 99 98 06/15/18 03:16 06/15/18 03:31 06/15/18 03:46 Temperature Pulse Rate 86 87 Respiratory Rate 24 Blood Pressure 163/72 H 162/70 H Pulse Oximetry 99 99 06/15/18 04:00 06/15/18 04:11 06/15/18 04:16 Temperature 99.6 F Pulse Rate 92 H Respiratory Rate 26 H 25 H Blood Pressure 167/74 H 155/66 H Pulse Oximetry 99 100 06/15/18 05:00 06/15/18 06:00 06/15/18 06:05 Temperature Pulse Rate 81 87 87 Respiratory Rate 26 H 25 H Blood Pressure 158/72 H 154/67 H 145/66 H Pulse Oximetry 99 99 99 06/15/18 06:16 06/15/18 07:00 06/15/18 07:16 Temperature Pulse Rate 77 85 91 H Respiratory Rate Blood Pressure 134/63 167/72 H Pulse Oximetry 99 99 99 06/15/18 07:35 06/15/18 07:49 06/15/18 08:16 Temperature 99.7 F H Pulse Rate 89 93 H Respiratory Rate 32 H Blood Pressure 152/74 H Pulse Oximetry 98 99 06/15/18 08:30 06/15/18 09:00 06/15/18 09:30 Temperature Pulse Rate 92 H 84 85 Respiratory Rate Blood Pressure 152/70 H 153/68 H 152/70 H Pulse Oximetry 97 97 97 06/15/18 10:00 06/15/18 10:30 06/15/18 11:00 Temperature Pulse Rate 87 96 H 76 Respiratory Rate Blood Pressure 148/70 H 165/77 H 120/59 L Pulse Oximetry 98 97 99 06/15/18 11:26 06/15/18 15:12 Temperature Pulse Rate Respiratory Rate 30 H 26 H Blood Pressure Pulse Oximetry 99 98 Intake & Output 06/14/18 06/15/18 06/15/18 18:59 06:59 18:59 Intake Total 1664.625 / 8768.961 6777 / 1248 709.625 / 709.625 Output Total 1810 / 1810 1575 / 1575 Balance -145.375 / -145.375 -327 / -327 709.625 / 709.625 Weight 137 kg Intake: IV 1414.625 / 1414.625 105 / 105 709.625 / 709.625 Diprivan 1000 mg/100 ml Inj 1, 100 / 100 000 mg In 100 ml @ 5 MCG/KG/MIN 3.972 mls/hr IV.CONT TITRATE PRN Rx#:[id number] Sodium Chloride 23.4% Inj 38.5 1009.625 / 1009.625 709.625 / 709.625 MEQ In Sterile Water for Inj 1, 000 ML @ 50 mls/hr IV.CONT . [id number] JAOCB Rx#:[id number] Cubicin Inj 800 MG In NS Inj 100 / 100 100 ML @ 200 mls/hr IV.SIG Q48H JACOB Rx#:[id number] INVanz Inj 1,000 MG In NS Inj 100 / 100 100 ML @ 200 mls/hr IV.SIG Q24H JACOB Rx#:[id number] Keppra Inj 500 MG In NS Inj 100 105 / 105 105 / 105 ML @ 400 mls/hr IV.SIG Q12H JACOB Rx#:[id number] Tube Feeding 643 / 643 Water Bolus Amount 250 / 250 500 / 500 Output: Urine Amount (Catheter) 1750 / 1750 1575 / 1575 Indwelling Urethral Catheter 1750 / 1750 1575 / 1575 Wound Drainage 60 / 60 # 1 Left Knee Hemovac 60 / 60 Other: Date of Last Bowel Movement 06/14/18 06/15/18 06/14/18 # Bowel Movements 1 2 Narrative: GENERAL: Intubated. Does not open eyes, withdrawals to lower extremity stimulation. SKIN: Warm and dry. NECK: Supple, trachea midline. No JVD. CARDIOVASCULAR: Regular rate and rhythm without murmurs, gallops, or rubs. RESPIRATORY: Breath sounds equal bilaterally. No accessory muscle use. Orally intubated. GASTROINTESTINAL: Abdomen soft, non-tender, nondistended. Dobhoff tube in right nare GENITOURINARY: Indwelling [place] catheter. MUSCULOSKELETAL: No cyanosis, Bilateral weeping edema in upper extremities. TUAN with drain in place left knee - Urinary Catheter Management Indwelling Urethral Catheter Cath placed during this visit: yes Urethral indwelling: Yes Reason for continuing: Hourly intake/output Insertion date: 06/03/18 Insertion time: 03:00 <[email or web address] - Last Filed: 06/15/18 15:31> Vital signs: Vital Signs 06/14/18 21:00 06/14/18 21:12 06/14/18 22:00 Temperature Pulse Rate 88 90 Respiratory Rate 25 H 26 H 26 H Blood Pressure 152/70 H 139/66 Pulse Oximetry 98 98 99 06/14/18 23:00 06/14/18 23:38 06/15/18 00:00 Temperature 99.9 F H Pulse Rate 96 H 97 H Respiratory Rate 24 29 H 24 Blood Pressure 158/71 H Pulse Oximetry 100 99 98 06/15/18 00:01 06/15/18 01:00 06/15/18 01:01 Temperature Pulse Rate 98 H 95 H 94 H Respiratory Rate 18 22 Blood Pressure 158/71 H 156/70 H Pulse Oximetry 98 99 99 06/15/18 02:00 06/15/18 02:01 06/15/18 02:31 Temperature Pulse Rate 94 H 95 H 94 H Respiratory Rate 25 H 26 H Blood Pressure 147/74 H 149/61 H Pulse Oximetry 99 98 99 06/15/18 03:00 06/15/18 03:16 06/15/18 03:31 Temperature Pulse Rate 81 86 Respiratory Rate 24 Blood Pressure 158/69 H 163/72 H Pulse Oximetry 98 99 06/15/18 03:46 06/15/18 04:00 06/15/18 04:11 Temperature 99.6 F Pulse Rate 87 92 H Respiratory Rate 24 26 H 25 H Blood Pressure 162/70 H 167/74 H Pulse Oximetry 99 99 100 06/15/18 04:16 06/15/18 05:00 06/15/18 06:00 Temperature Pulse Rate 81 87 Respiratory Rate 26 H 25 H Blood Pressure 155/66 H 158/72 H 154/67 H Pulse Oximetry 99 99 06/15/18 06:05 06/15/18 06:16 06/15/18 07:00 Temperature Pulse Rate 87 77 85 Respiratory Rate Blood Pressure 145/66 H 134/63 Pulse Oximetry 99 99 99 06/15/18 07:16 06/15/18 07:35 06/15/18 07:49 Temperature Pulse Rate 91 H 89 Respiratory Rate 32 H Blood Pressure 167/72 H Pulse Oximetry 99 98 06/15/18 08:16 06/15/18 08:30 06/15/18 09:00 Temperature 99.7 F H Pulse Rate 93 H 92 H 84 Respiratory Rate Blood Pressure 152/74 H 152/70 H 153/68 H Pulse Oximetry 99 97 97 06/15/18 09:30 06/15/18 10:00 06/15/18 10:30 Temperature Pulse Rate 85 87 96 H Respiratory Rate Blood Pressure 152/70 H 148/70 H 165/77 H Pulse Oximetry 97 98 97 06/15/18 11:00 06/15/18 11:26 06/15/18 11:30 Temperature Pulse Rate 76 82 Respiratory Rate 30 H Blood Pressure 120/59 L 136/63 Pulse Oximetry 99 99 99 06/15/18 12:00 06/15/18 12:30 06/15/18 13:00 Temperature Pulse Rate 78 91 H 81 Respiratory Rate Blood Pressure 140/65 147/65 H 135/62 Pulse Oximetry 100 100 98 06/15/18 13:30 06/15/18 14:00 06/15/18 14:30 Temperature Pulse Rate 90 78 76 Respiratory Rate Blood Pressure 141/65 H 137/64 130/62 Pulse Oximetry 99 100 100 06/15/18 15:00 06/15/18 15:12 06/15/18 16:04 Temperature Pulse Rate 90 Respiratory Rate 26 H Blood Pressure 141/65 H Pulse Oximetry 98 98 100 06/15/18 16:07 06/15/18 17:10 06/15/18 18:00 Temperature 100.2 F H Pulse Rate 93 H 72 78 Respiratory Rate Blood Pressure 166/72 H 136/61 Pulse Oximetry 97 98 99 06/15/18 19:52 Temperature Pulse Rate Respiratory Rate 24 Blood Pressure Pulse Oximetry 100 Intake & Output 06/15/18 06/15/18 06/16/18 06:59 18:59 06:59 Intake Total 1248 / 1248 3164.250 / 3164.250 Output Total 1575 / 1575 1625 / 1625 Balance -327 / -327 1539.250 / 1539.250 Weight 137 kg Intake: IV 105 / 105 2024.250 / 2024.250 Sodium Chloride 23.4% Inj 38.5 1719.250 / 1719.250 MEQ In Sterile Water for Inj 1, 000 ML @ 100 mls/hr IV.CONT . Q10H6M JACOB Rx#:[id number] Cubicin Inj 800 MG In NS Inj 100 / 100 100 ML @ 200 mls/hr IV.SIG Q24H JACOB Rx#:[id number] INVanz Inj 1,000 MG In NS Inj 100 / 100 100 ML @ 200 mls/hr IV.SIG Q24H JACOB Rx#:[id number] Keppra Inj 500 MG In NS Inj 100 105 / 105 105 / 105 ML @ 400 mls/hr IV.SIG Q12H JACOB Rx#:[id number] Tube Feeding 643 / 643 350 / 350 Tube Irrigant 540 / 540 Water Bolus Amount 500 / 500 250 / 250 Output: Urine Amount (Catheter) 1575 / 1575 1625 / 1625 Indwelling Urethral Catheter 1575 / 1575 1625 / 1625 Wound Drainage 0 / 0 # 1 Left Knee Hemovac 0 / 0 Other: Date of Last Bowel Movement 06/15/18 06/14/18 # Bowel Movements 2 - Urinary Catheter Management Indwelling Urethral Catheter Cath placed during this visit: no <Aurelia Powell - Last Filed: 06/15/18 20:35> Assessment and Plan - Assessment (1) Acute kidney failure Code(s): N17.9 - Acute kidney failure, unspecified Status: Acute Plan: Acute kidney injury with creatinine of 3.50. HCO3 at 20.6. Non oliguric. on day of consult On admission creatinine was noted to be 1.56\ CT on abdomen with no acute findings. Bilateral renal cysts noted. Patient may have some chronic kidney disease but baseline creatinine is not known. Proteinuria noted in urine. Creatinine started to increase on the 4th at 2.86. NIKKI with FeNA at 2.35 suggestive of ATN possibly from sepsis or contrast nephropathy. AIN in differential also with vancomycin/gentamicin levels elevated on the 4th. Creatinine has improved at 2.32, with good urinary output. Immunology negative. Hypernatremia, continue fluids Bilateral upper extremity weeping edema, Lasix ordered. Avoid nephrotoxins as possible. Will follow urinary output and labs. Labs in AM <Azul Lam - Last Filed: 06/15/18 15:31> - Assessment (1) Acute kidney failure Code(s): N17.9 - Acute kidney failure, unspecified Status: Acute Plan: Patient seen and examined, agree with above. Creatinine is improving, now 2.3. Increasing edema, started on Lasix. <Aurelia Powell - Last Filed: 06/15/18 20:35>
--- NOTE | 2018-06-15 16:01 | MR ---
EXAM DATE: 06/15/2018 3:54 PM EST AGE/SEX: 68 years / Male INDICATIONS: . Decreased level of consciousness. CLINICAL DATA: This is the patient's subsequent encounter. Patient reports that signs and symptoms h ave been present for 3 weeks and indicates a pain score of Nonresponsive. MEDICAL/SURGICAL HISTORY: Hypertension. Diabetes mellitus type II. . knee surgery [place] [facility] [place]. . TECHNIQUE: Multiplanar, multisequence examination of the brain was performed without contrast. FINDINGS: Cerebrum: There are no cortically based areas of restricted diffusion. There is no evidence of hemor rhage, mass effect or edema. CSF spaces are stable. White Matter: Multiple small foci of restricted diffusion have developed within the left cerebral wh ite matter compared to the recent exam. These are located in the left tavarez radiata and left occipit al periventricular white matter. There is no evidence of acute hemorrhage. Posterior Fossa: Stable without evidence of acute infarct, hemorrhage, mass or edema. Extracranial: The visualized portions of the orbits and paranasal sinuses are unremarkable. CONCLUSION: 1. Scattered foci of restricted diffusion have developed within the left cerebral white matter predo minantly within the tavarez radiata and periventricular white matter of the left occipital lobe consis tent with small white matter infarcts 2. Otherwise stable evaluation. No evidence of cortical infarct, hemorrhage, mass or edema. Electronically signed by: Dhaval Montes MD 06/15/2018 4:00 PM EST
[2018-06-16] MEDS: Insulin NovoLIN Regular Correctional Sugar Inj SQ SCH ×6 (00:37→21:13)
[2018-06-16] MEDS: Oral Hygiene Kit OROPHARYNG SCH ×4 (00:38→16:07)
[2018-06-16] MEDS: Acetaminophen 325 MG Tablet PO PRN ×2 (01:34→09:29)
[2018-06-16] MEDS: Sodium Chloride 23.4% Inj 38.5 MEQ in Water for Inj, Sterile 1,000 ML IV.CONT SCH ×3 (06:28→14:35)
[2018-06-16] MEDS: Labetalol HCl Inj 100 MG/20 ML Vial IV.PUSH PRN (06:34)
[2018-06-16 06:45] LABS: Calcium 8.6 mg/dL (8.5-10.1); Carbon Dioxide 20.1 meq/L (21.0-32.0); Potassium 4.5 meq/L (3.5-5.1)
[2018-06-16] MEDS: Chlorhexidine 0.12% Oral Kit 15 ML UDC OROPHARYNG SCH ×2 (08:02→21:20)
[2018-06-16] MEDS: Famotidine PF Inj 20 MG/2 ML Vial IV.PUSH SCH ×2 (08:03→21:21)
[2018-06-16] MEDS: Heparin - SQ 10,000 UNITS/ML Vial SQ SCH ×2 (08:03→21:20)
[2018-06-16] MEDS: Senna/Docusate Sodium 8.6/50 MG Tablet PO SCH ×2 (08:04→21:13)
--- NOTE | 2018-06-16 10:25 | P.PNID ---
Subjective Remarks: Patient is a 68-year-old male, brought into the hospital initially at [facility] for evaluation of weakness and slurred speech. It apparently has been present for several days. He was found on the floor of his mobile home. At [facility] he was found to be febrile, WBC up to 21,000, urinalysis with pyuria, creatinine 2.33, and lactic acid was elevated. CT of the head showed focal hemorrhage in the posterior fossa. Patient was transferred to [facility] for neurosurgical evaluation. Patient since admission has had elevated temperature. His blood cultures done on admission are now reported as growing gram-positive cocci, MRSA. His urine culture is also growing MRSA. On evaluation in the intensive care unit, he is awake, and interactive. He looks slightly tachypneic at rest and and on nasal O2. He has some confusion but mostly his oriented. His chest x-ray is normal. Echo is showing calcification in the aortic valve. No vegetations seen. Infectious disease consultation has been requested to assist with evaluation and treatment of patient with MRSA bacteremia. Notes reviewed D/W RN Temps up Did only 20 minutes CPAP this morning ET secretions thick [place] color Opens eyes when sedation down, not following BP ok Has new (+) BC 06/13 Had I and D L knee 06/12 LAURIE no vegetation seen No rash No diarrhea Antibiotics: Cubicin Invanz Lines: PIV Past Medical History: Diabetes History of MRSA infection Onset Date: ~06/03/18 Hypertension Obesity UTI (urinary tract infection) Allergies/Adverse Reactions: Allergies No Known Allergies Allergy (Verified 06/03/18 01:32) Objective Vital Signs 06/15/18 10:30 06/15/18 11:00 06/15/18 11:26 Temperature Pulse Rate 96 H 76 Respiratory Rate 30 H Blood Pressure 165/77 H 120/59 L Pulse Oximetry 97 99 99 06/15/18 11:30 06/15/18 12:00 06/15/18 12:30 Temperature Pulse Rate 82 78 91 H Respiratory Rate Blood Pressure 136/63 140/65 147/65 H Pulse Oximetry 99 100 100 06/15/18 13:00 06/15/18 13:30 06/15/18 14:00 Temperature Pulse Rate 81 90 78 Respiratory Rate Blood Pressure 135/62 141/65 H 137/64 Pulse Oximetry 98 99 100 06/15/18 14:30 06/15/18 15:00 06/15/18 15:12 Temperature Pulse Rate 76 90 Respiratory Rate 26 H Blood Pressure 130/62 141/65 H Pulse Oximetry 100 98 98 06/15/18 16:04 06/15/18 16:07 06/15/18 17:10 Temperature Pulse Rate 93 H 72 Respiratory Rate Blood Pressure 166/72 H 136/61 Pulse Oximetry 100 97 98 06/15/18 18:00 06/15/18 18:10 06/15/18 19:00 Temperature 100.2 F H 100.6 F H Pulse Rate 78 81 Respiratory Rate 23 Blood Pressure 144/67 H Pulse Oximetry 99 100 06/15/18 19:10 06/15/18 19:52 06/15/18 20:00 Temperature 100.4 F H 100.6 F H Pulse Rate 87 92 H Respiratory Rate 24 21 Blood Pressure 156/71 H Pulse Oximetry 99 100 99 06/15/18 20:10 06/15/18 21:00 06/15/18 21:10 Temperature 100.6 F H 100.6 F H 100.8 F H Pulse Rate 93 H 79 78 Respiratory Rate 20 20 24 Blood Pressure 155/70 H 141/65 H Pulse Oximetry 98 100 100 06/15/18 22:00 06/15/18 22:10 06/15/18 23:00 Temperature 100.6 F H 100.6 F H Pulse Rate 76 77 91 H Respiratory Rate 22 26 H 23 Blood Pressure 141/63 H Pulse Oximetry 100 100 95 06/15/18 23:10 06/15/18 23:30 06/16/18 00:00 Temperature 100.9 F H Pulse Rate 97 H 77 Respiratory Rate 22 27 H 21 Blood Pressure 153/89 H Pulse Oximetry 100 99 99 06/16/18 00:10 06/16/18 01:00 06/16/18 01:10 Temperature 100.9 F H 100.9 F H Pulse Rate 75 78 87 Respiratory Rate 22 24 26 H Blood Pressure 143/65 H 149/77 H Pulse Oximetry 99 99 99 06/16/18 02:00 06/16/18 02:10 06/16/18 02:59 Temperature 101.3 F H 101.3 F H Pulse Rate 75 74 Respiratory Rate 18 21 Blood Pressure 129/64 129/61 Pulse Oximetry 94 L 99 06/16/18 03:00 06/16/18 03:10 06/16/18 03:28 Temperature 100.6 F H 100.4 F H Pulse Rate 77 75 Respiratory Rate 22 24 26 H Blood Pressure 136/65 Pulse Oximetry 95 100 96 06/16/18 04:00 06/16/18 04:12 06/16/18 04:13 Temperature 99.9 F H 99.9 F H 99.9 F H Pulse Rate 76 87 87 Respiratory Rate 22 23 25 H Blood Pressure 167/76 H 157/70 H Pulse Oximetry 99 100 100 06/16/18 05:00 06/16/18 05:12 06/16/18 06:00 Temperature 99.5 F 99.5 F 99.7 F H Pulse Rate 87 85 87 Respiratory Rate 26 H 24 Blood Pressure 150/66 H Pulse Oximetry 99 94 L 99 06/16/18 06:09 06/16/18 07:00 06/16/18 07:15 Temperature 99.7 F H 100.0 F H 100.0 F H Pulse Rate 90 72 73 Respiratory Rate 21 Blood Pressure 159/71 H 123/58 L 130/63 Pulse Oximetry 99 100 100 06/16/18 07:30 06/16/18 07:45 06/16/18 08:00 Temperature 98.2 F 100.0 F H 100.2 F H Pulse Rate 61 84 77 Respiratory Rate Blood Pressure 133/62 142/70 H 142/73 H Pulse Oximetry 100 100 100 06/16/18 08:15 06/16/18 08:25 06/16/18 08:30 Temperature 100.2 F H 100.2 F H Pulse Rate 62 78 Respiratory Rate Blood Pressure 132/61 157/71 H Pulse Oximetry 100 100 100 06/16/18 08:45 06/16/18 09:00 06/16/18 09:15 Temperature 100.4 F H 100.4 F H 100.4 F H Pulse Rate 66 87 81 Respiratory Rate Blood Pressure 128/70 167/81 H 137/66 Pulse Oximetry 100 100 100 06/16/18 09:30 06/16/18 09:45 06/16/18 10:00 Temperature 100.8 F H 100.8 F H 100.9 F H Pulse Rate 77 66 68 Respiratory Rate Blood Pressure 160/64 H 156/71 H 133/61 Pulse Oximetry 100 100 100 Intake & Output 06/15/18 06/16/18 06/16/18 18:59 06:59 18:59 Intake Total 3164.250 / 3164.250 1173 / 1173 Output Total 1645 / 1645 3000 / 3000 Balance 1519.250 / 1519.250 -1827 / -1827 Weight 134.8 kg Intake: IV 2024.250 / 2024.250 105 / 105 Sodium Chloride 23.4% Inj 38.5 1719.250 / 1719.250 MEQ In Sterile Water for Inj 1, 000 ML @ 100 mls/hr IV.CONT . Q10H6M JACOB Rx#:[id number] Cubicin Inj 800 MG In NS Inj 100 / 100 100 ML @ 200 mls/hr IV.SIG Q24H JACOB Rx#:[id number] INVanz Inj 1,000 MG In NS Inj 100 / 100 100 ML @ 200 mls/hr IV.SIG Q24H JACOB Rx#:[id number] Keppra Inj 500 MG In NS Inj 100 105 / 105 105 / 105 ML @ 400 mls/hr IV.SIG Q12H JACOB Rx#:[id number] Tube Feeding 350 / 350 568 / 568 Tube Irrigant 540 / 540 Water Bolus Amount 250 / 250 500 / 500 Output: Urine Amount (Catheter) 1625 / 1625 3000 / 3000 Indwelling Urethral Catheter 1625 / 1625 3000 / 3000 Wound Drainage 20 20 0 / 0 # 1 Left Knee Hemovac 20 20 0 / 0 Other: Date of Last Bowel Movement 06/14/18 06/15/18 06/16/18 06/14/18 16:10 Sputum - Endotracheal Gram Stain - Final 06/14/18 16:10 Sputum - Endotracheal Sputum Culture - Final Moderate growth normal respiratory sepideh 06/16/18 05:53 Blood - Peripheral Aerobic Blood Culture - Pending 06/16/18 05:53 Blood - Peripheral Anaerobic Blood Culture - Pending 06/15/18 16:55 Catheterized Urine Urine Culture - Pending 06/15/18 13:50 Blood - Peripheral Aerobic Blood Culture - Pending 06/15/18 13:50 Blood - Peripheral Anaerobic Blood Culture - Pending 06/14/18 16:10 Clean Catch Urine Urine Culture - Preliminary Yeast - ID to follow 06/13/18 19:00 Blood - Peripheral Aerobic Blood Culture - Preliminary gram positive cocci 06/13/18 19:00 Blood - Peripheral Anaerobic Blood Culture - Preliminary No growth in 2 days 06/13/18 18:50 Blood - Peripheral Aerobic Blood Culture - Preliminary No growth in 2 days 06/13/18 18:50 Blood - Peripheral Anaerobic Blood Culture - Preliminary No growth in 2 days 06/11/18 07:41 Blood - Peripheral Aerobic Blood Culture - Final S. aureus MRSA 06/11/18 07:41 Blood - Peripheral Anaerobic Blood Culture - Preliminary No growth in 4 days 06/10/18 06:20 Blood - Peripheral Aerobic Blood Culture - Final S. aureus MRSA 06/10/18 06:20 Blood - Peripheral Anaerobic Blood Culture - Final No growth in 5 days 06/12/18 13:09 Tissue - Knee Gram Stain - Final 06/12/18 13:09 Tissue - Knee Wound Culture - Final S. aureus MRSA 06/12/18 13:10 Other Acid Fast Bacilli Smear - Final No acid fast bacilli seen 06/12/18 13:10 Other Mycobacterial Culture - Pending 06/12/18 13:09 Tissue - Knee Acid Fast Bacilli Smear - Final No acid fast bacilli seen 06/12/18 13:09 Tissue - Knee Mycobacterial Culture - Pending 06/12/18 13:10 Tissue - Knee Gram Stain - Final 06/12/18 13:10 Tissue - Knee Wound Culture - Final S. aureus MRSA 06/12/18 13:10 Other Fungal Smear - Final No fungal elements seen 06/12/18 13:10 Other Fungal Culture - Pending 06/12/18 13:09 Tissue - Knee Fungal Smear - Final No fungal elements seen 06/12/18 13:09 Tissue - Knee Fungal Culture - Pending 06/08/18 14:00 Blood - Peripheral Aerobic Blood Culture - Final S. aureus MRSA 06/08/18 14:00 Blood - Peripheral Anaerobic Blood Culture - Final No growth in 5 days 06/08/18 05:54 Blood - Peripheral Aerobic Blood Culture - Final S. aureus MRSA 06/08/18 05:54 Blood - Peripheral Anaerobic Blood Culture - Final No growth in 5 days Lab - Hematology Results 06/15/18 04:13 WBC 9.7 RBC 2.94 L Hgb 9.0 L Hct 26.5 L MCV 90.2 MCH 30.5 MCHC 33.8 RDW 16.8 Plt Count 255 MPV 8.7 Neut % (Auto) 79.7 H Lymph % (Auto) 11.4 [place] % (Auto) 7.6 Eos % (Auto) 1.0 Baso % (Auto) 0.3 Neut # (Auto) 7.7 Lymph # (Auto) 1.1 [place] # (Auto) 0.7 Eos # (Auto) 0.1 Baso # (Auto) 0.0 WBC Differential . Differential Comment Auto diff final Lab - Chemistry Results 06/14/18 06/14/18 06/14/18 12:42 15:53 21:37 Sodium Potassium Chloride Carbon Dioxide Anion Gap BUN Creatinine Estimated GFR POC Glucose 156 H 162 H 160 H Random Glucose Calcium Magnesium Total Bilirubin AST ALT Alkaline Phosphatase Ammonia Total Protein Albumin 06/15/18 06/15/18 06/15/18 00:28 04:13 04:17 Sodium 153 H Potassium 4.8 Chloride 126 H Carbon Dioxide 18.2 L Anion Gap 9 BUN 64 H Creatinine 2.32 H Estimated GFR 28 L POC Glucose 141 H 156 H Random Glucose 161 H Calcium 8.2 L Magnesium 2.7 H Total Bilirubin 0.6 AST 45 H ALT 37 Alkaline Phosphatase 74 Ammonia Total Protein 6.7 Albumin 1.6 L 06/15/18 06/15/18 06/15/18 07:36 10:53 12:43 Sodium Potassium Chloride Carbon Dioxide Anion Gap BUN Creatinine Estimated GFR POC Glucose 134 H 188 H Random Glucose Calcium Magnesium Total Bilirubin AST ALT Alkaline Phosphatase Ammonia 32 Total Protein Albumin 06/15/18 06/15/18 06/15/18 18:19 19:50 23:34 Sodium Potassium Chloride Carbon Dioxide Anion Gap BUN Creatinine Estimated GFR POC Glucose 129 H 143 H 149 H Random Glucose Calcium Magnesium Total Bilirubin AST ALT Alkaline Phosphatase Ammonia Total Protein Albumin 06/16/18 06/16/18 06/16/18 04:11 05:53 07:34 Sodium 150 H Potassium 4.5 Chloride 121 H Carbon Dioxide 20.1 L Anion Gap 9 BUN 69 H Creatinine 2.32 H Estimated GFR 28 L POC Glucose 175 H 167 H Random Glucose 161 H Calcium 8.6 Magnesium Total Bilirubin AST ALT Alkaline Phosphatase Ammonia Total Protein Albumin Imaging: ITS Impressions Abdomen/Bladder Ultrasound 06/03/18 00:00 CONCLUSION: 1. Bilateral simple cysts within the kidneys as above. 2. No findings to indicate renal obstruction. 3. Renal cortex appears of adequate thickness. Abdomen/Pelvis CT 06/04/18 00:00 CONCLUSION: 1. The second and third portions of the duodenum appear mildly prominent and indistinct with mild surrounding inflammatory change extending into the adjacent mesentery. The findings are concerning for duodenitis. 2. Bilateral renal cysts. 3. Minimal pleural effusions and atelectasis in the lung bases. 4. The gallbladder is unremarkable. Head MRA 06/04/18 00:00 CONCLUSION: 1. Atherosclerotic changes involving the left M2 segment. 2. No aneurysm or vascular abnormality identified. 3. Visualization of the known blood products along the right side of the brainstem. Neck MRA 06/04/18 00:00 CONCLUSION: 1. Unremarkable MRA of the carotids. Percent stenosis is calculated using the diameter of the stenotic region over the diameter of the normal distal internal carotid artery Abdomen X-Ray 06/05/18 00:00 CONCLUSION: Feeding tube distal tip is in the gastric body. Knee X-Ray 06/06/18 00:00 CONCLUSION: 1. Moderate suprapatellar effusion. 2. Prominent degenerative osteoarthritis. Knee MRI 06/08/18 07:08 CONCLUSION: 1. Nonspecific joint effusion and moderate severity synovitis. Also nonspecific subcutaneous edema. Nothing organized or drainable. 2. Medial compartment predominant osteoarthritis. 3. Tears of the medial and lateral menisci as above. Cervical Spine MRI 06/08/18 07:09 CONCLUSION: 1. Increased signal anterior to the C6-C7 disc level and between the prominent anterior marginal osteophytes. The anterior longitudinal ligament is not seen. This could be the sequela of an injury in this region. The remaining aspect of the disc is intact. The vertebral bodies demonstrate normal signal. Prevertebral soft tissue swelling is not seen. This could be chronic. Fluid resembling a pseudarthrosis can also develop between osteophytes potentially. The remaining soft tissues appear intact. 2. Mild left lateral recess disc protrusion at the C2-C3 level. 3. Mild central disc protrusion at the C3-C4 level. 4. Mild disc bulge at the C5-C6 level and minimal disc bulge at the C4-C5 level. 5. Scattered neural foraminal narrowing as described above. Lumbar Spine MRI 06/08/18 07:09 CONCLUSION: 1. Severe stenosis at the L4-L5 level. 2. Moderate stenosis at the L2-L3 level. 3. Minimal disc bulge at the L1-L2 level with a small inferiorly directed extruded disc fragment at the right side. Significant stenosis is not seen at this level. 4. No focal fluid collection is identified. Thoracic Spine MRI 06/08/18 07:09 CONCLUSION: 1. Limited, noncontrast examination with no evidence of abscess. 2. Small posterior central protrusion at T5-6 with mild flattening of the anterior cord. 3. Posterior disc bulge at T6-7 with mild flattening of the anterior thecal sac. Head CT 06/14/18 00:00 CONCLUSION: Subarachnoid hemorrhage in the basal cisterns no longer seen. No acute intracranial findings identified. . Head MRI 06/15/18 00:00 CONCLUSION: 1. Scattered foci of restricted diffusion have developed within the left cerebral white matter predominantly within the tavarez radiata and periventricular white matter of the left occipital lobe consistent with small white matter infarcts 2. Otherwise stable evaluation. No evidence of cortical infarct, hemorrhage, mass or edema. Chest X-Ray 06/15/18 06:00 CONCLUSION: No significant interval change with persistent patchy opacity at the left lung base. Physical Exam: GENERAL: Sedated on the vent, not in respiratory distress. SKIN: Warm and dry. No generalized rash, no ecchymoses HEAD: Atraumatic. Normocephalic. No temporal wasting, or tenderness. EYES: [place] conjunctiva. No petechia or hemorrhage. Pupils equal, round and reactive to light. No scleral icterus. No injection or drainage. EARS, NOSE AND THROAT: Nose without bleeding or purulent nasal discharge. Orally intubated NECK: Trachea midline. Supple and not tender, no meningeal signs CARDIOVASCULAR: Regular rate and rhythm. No murmurs, rubs or gallops heard RESPIRATORY: Clear to auscultation. Breath sounds equal bilaterally. No rales , wheezing or rhonchi ABDOMEN: Soft, obese, globular, distended bowel sounds present and normoactive. EXTREMITIES: Left knee dressing intact, drain in place with small amount sanguinous discharge NEUROLOGICAL: Sedated. PSYCHIATRIC: Unable to assess. LINE: No evidence of infection : [place] in place, urine better Assessment and Plan - Plan Impression MRSA sepsis on presentation, worrisome for IE - LAURIE negative - MRSA not a common pathogen - so far no obvious source for the MRSA, and very likely endovascular - BC still (+) - Has septic L knee UTI - first UC with MRSA; now with E coli ESBL on Rx - last UC now with Septic L knee, MRSA Hemorrhage posterior fossa - no aneurysm: MRA negative for mycotic aneurism Hx DM, HTN, Obesity Renal insufficiency, improving Fevers, up again Respiratory failure Recommendation Follow C/S Continue Cubicin Continue Invanz - will give until 06/19 Add Diflucan Monitor progress Follow temps Follow CBC Weaning per CCM D/W MATEO
[2018-06-16] MEDS: Fluconazole 100 MG Tablet PO SCH (10:30)
--- NOTE | 2018-06-16 11:52 | MB ---
cc: Chase Ibarra MD DATE: 06/15/2018 HISTORY OF PRESENT ILLNESS: A 68-year-old man admitted on 06/03/2018; type 2 diabetes, hypertension, obesity, went to [facility] with weakness, slurred speech. Found on the floor of his mobile home; had a high ____ of 21,000. BUN of 50, creatinine of 2.3. CPK over 3000. He had a focal hemorrhage in the white quadrigeminal plate cistern by CT on the posterior aspect of his brainstem 2.8 cm. He was treated for high blood pressure. An MRI recently showed bilateral infarcts; small multiple, I am asked to see him for that. He had an I and D of the left knee; evidently culture positive. He has been followed by neurosurgery. He has had numerous MRSA blood cultures. He has remained intubated. REVIEW OF SYSTEMS: Really unable to obtain. MEDICATIONS AT HOME: Uncertain. MEDICATIONS HERE: He is on: 1. Tylenol. 2. Clonidine. 3. Daptomycin. 4. Ertapenem. 4. Famotidine. 5. Fluconazole. 6. Lasix. 7. Glucagon. 8. Subcutaneous heparin 5000 every 12 hours. 9. Labetalol. 10. Lactulose. 1. Keppra 500 every. PHYSICAL EXAMINATION: VITAL SIGNS: 100.9; he has been running temperatures up to 101, blood pressure 133/61, 68, sinus rhythm. He has been in sinus rhythm according to the nurse. NECK: There were no carotid bruits. HEART: Regular rate and rhythm. I did not detect a murmur. NEUROLOGIC: He is intubated, but not sedated according to the nurse. His pupils are equal; he does not react to threat. Flaccid throughout. Toes are downgoing bilaterally. There is no ankle clonus. DTRs are absent throughout. He will move bilateral lower extremities with a hard pinch. LABORATORY DATA: CBC is normal. UA has shown positive; 44 white cells. Basic metabolic profile: 150 is the sodium, creatinine 2.32. His ammonia level has been normal and serum protein electrophoresis done was negative. CPK initially 4600 down to 2000 on 06/08/2018. LFTs minimally elevated. ABG 7.4, 34, 72. Coags normal. SEVEN negative. He had 21,000 nucleated cells, 96% polys on 06/09/2018 from his knee. IMAGIN. MRI of the brain as noted. 2. He had a transesophageal echo done on 06/10/2018: A 2 mm linear opacity on the mitral subvalvular apparatus, uncertain etiology. 3. MRI of the thoracic spine was negative. 4. MRI of cervical spine: Signal anterior to the C6-C7 disk, negative. 5. MRI of the LS spine: Severe stenosis at L4-L5, otherwise generally unremarkable. 6. EEG performed yesterday showed some diffuse slowing only. 7. MRI of the brain shows multiple small infarcts; a little bit more on the left than the right, some very tiny in the cerebrum bilaterally. 8. The intracranial hemorrhage has resolved by CT. 9. On the CAT scan, I do see the right-sided hemorrhage in the extraaxial space behind the right quadrigeminal plate region and pontine area. This had resolved on his CT done on 06/14/2018. 10. He had an MRA of the [place], which did not show any aneurysms or other blockages. He also had an MRA of his neck on 06/04/2018 which was unremarkable. He also had an MRI of his brain done on 06/04/2018 which showed the hemorrhage on review of those films at that time. There was no infarct seen IMPRESSION: Multiple bilateral small infarcts, likely why he has not awakened. I would be concerned about endocarditis with that small abnormality seen by the mitral valve. This would correlate with his positive blood cultures,the sepsis and the bilateral small infarcts. If he has had any atrial fibrillation, I would consider anticoagulation; however, I think probably less likely. We will check some blood work on him. I will be following him in the hospital. We will check a troponin on him, but endocarditis would be my primary differential here. I will continue him sedatives. MD MARYBEL Potter/randa , 11:09 AM , 11:22 AM
[2018-06-16] MEDS: DAPTOmycin Inj 800 MG in Sodium Chlor 0.9% Inj 100 ML IV.SIG SCH (11:59)
--- NOTE | 2018-06-16 11:59 | P.PNNP ---
Subjective Interval history: Remains on ventilator does not open eyes to commands, not on sedation. Creatinine at 2.32 today. <Azul Lam - Last Filed: 06/16/18 11:54> Physical Exam Vital signs: Vital Signs 06/15/18 12:00 06/15/18 12:30 06/15/18 13:00 Temperature Pulse Rate 78 91 H 81 Respiratory Rate Blood Pressure 140/65 147/65 H 135/62 Pulse Oximetry 100 100 98 06/15/18 13:30 06/15/18 14:00 06/15/18 14:30 Temperature Pulse Rate 90 78 76 Respiratory Rate Blood Pressure 141/65 H 137/64 130/62 Pulse Oximetry 99 100 100 06/15/18 15:00 06/15/18 15:12 06/15/18 16:04 Temperature Pulse Rate 90 Respiratory Rate 26 H Blood Pressure 141/65 H Pulse Oximetry 98 98 100 06/15/18 16:07 06/15/18 17:10 06/15/18 18:00 Temperature 100.2 F H Pulse Rate 93 H 72 78 Respiratory Rate Blood Pressure 166/72 H 136/61 Pulse Oximetry 97 98 99 06/15/18 18:10 06/15/18 19:00 06/15/18 19:10 Temperature 100.6 F H 100.4 F H Pulse Rate 81 87 Respiratory Rate 23 Blood Pressure 144/67 H 156/71 H Pulse Oximetry 100 99 06/15/18 19:52 06/15/18 20:00 06/15/18 20:10 Temperature 100.6 F H 100.6 F H Pulse Rate 92 H 93 H Respiratory Rate 24 21 20 Blood Pressure 155/70 H Pulse Oximetry 100 99 98 06/15/18 21:00 06/15/18 21:10 06/15/18 22:00 Temperature 100.6 F H 100.8 F H 100.6 F H Pulse Rate 79 78 76 Respiratory Rate 20 24 22 Blood Pressure 141/65 H Pulse Oximetry 100 100 100 06/15/18 22:10 06/15/18 23:00 06/15/18 23:10 Temperature 100.6 F H Pulse Rate 77 91 H 97 H Respiratory Rate 26 H 23 22 Blood Pressure 141/63 H 153/89 H Pulse Oximetry 100 95 100 06/15/18 23:30 06/16/18 00:00 06/16/18 00:10 Temperature 100.9 F H Pulse Rate 77 75 Respiratory Rate 27 H 21 22 Blood Pressure 143/65 H Pulse Oximetry 99 99 99 06/16/18 01:00 06/16/18 01:10 06/16/18 02:00 Temperature 100.9 F H 100.9 F H 101.3 F H Pulse Rate 78 87 75 Respiratory Rate 24 26 H 18 Blood Pressure 149/77 H Pulse Oximetry 99 99 94 L 06/16/18 02:10 06/16/18 02:59 06/16/18 03:00 Temperature 101.3 F H 100.6 F H Pulse Rate 74 77 Respiratory Rate 21 22 Blood Pressure 129/64 129/61 Pulse Oximetry 99 95 06/16/18 03:10 06/16/18 03:28 06/16/18 04:00 Temperature 100.4 F H 99.9 F H Pulse Rate 75 76 Respiratory Rate 24 26 H 22 Blood Pressure 136/65 Pulse Oximetry 100 96 99 06/16/18 04:12 06/16/18 04:13 06/16/18 05:00 Temperature 99.9 F H 99.9 F H 99.5 F Pulse Rate 87 87 87 Respiratory Rate 23 25 H Blood Pressure 167/76 H 157/70 H Pulse Oximetry 100 100 99 06/16/18 05:12 06/16/18 06:00 06/16/18 06:09 Temperature 99.5 F 99.7 F H 99.7 F H Pulse Rate 85 87 90 Respiratory Rate 26 H 24 21 Blood Pressure 150/66 H 159/71 H Pulse Oximetry 94 L 99 99 06/16/18 07:00 06/16/18 07:15 06/16/18 07:30 Temperature 100.0 F H 100.0 F H 98.2 F Pulse Rate 72 73 61 Respiratory Rate Blood Pressure 123/58 L 130/63 133/62 Pulse Oximetry 100 100 100 06/16/18 07:45 06/16/18 08:00 06/16/18 08:15 Temperature 100.0 F H 100.2 F H 100.2 F H Pulse Rate 84 77 62 Respiratory Rate Blood Pressure 142/70 H 142/73 H 132/61 Pulse Oximetry 100 100 100 06/16/18 08:25 06/16/18 08:30 06/16/18 08:45 Temperature 100.2 F H 100.4 F H Pulse Rate 78 66 Respiratory Rate Blood Pressure 157/71 H 128/70 Pulse Oximetry 100 100 100 06/16/18 09:00 06/16/18 09:15 06/16/18 09:30 Temperature 100.4 F H 100.4 F H 100.8 F H Pulse Rate 87 81 77 Respiratory Rate Blood Pressure 167/81 H 137/66 160/64 H Pulse Oximetry 100 100 100 06/16/18 09:45 06/16/18 10:00 Temperature 100.8 F H 100.9 F H Pulse Rate 66 68 Respiratory Rate Blood Pressure 156/71 H 133/61 Pulse Oximetry 100 100 Intake & Output 06/15/18 06/16/18 06/16/18 18:59 06:59 18:59 Intake Total 3164.250 / 3164.250 1173 / 1173 Output Total 1645 / 1645 3000 / 3000 1800 / 1800 Balance 1519.250 / 1519.250 -1827 / -1827 -1800 / -1800 Weight 134.8 kg Intake: IV 4.250 / 2024.250 105 / 105 Sodium Chloride 23.4% Inj 38.5 1719.250 / 1719.250 MEQ In Sterile Water for Inj 1, 000 ML @ 100 mls/hr IV.CONT . Q10H6M JACOB Rx#:[id number] Cubicin Inj 800 MG In NS Inj 100 / 100 100 ML @ 200 mls/hr IV.SIG Q24H JACOB Rx#:[id number] INVanz Inj 1,000 MG In NS Inj 100 / 100 100 ML @ 200 mls/hr IV.SIG Q24H JACOB Rx#:[id number] Keppra Inj 500 MG In NS Inj 100 105 / 105 105 / 105 ML @ 400 mls/hr IV.SIG Q12H JACOB Rx#:[id number] Tube Feeding 350 / 350 568 / 568 Tube Irrigant 540 / 540 Water Bolus Amount 250 / 250 500 / 500 Output: Urine Amount (Catheter) 1625 / 1625 3000 / 3000 1800 / 1800 Indwelling Urethral Catheter 1625 / 1625 3000 / 3000 1800 / 1800 Wound Drainage 20 / 20 0 / 0 0 / 0 # 1 Left Knee Hemovac 20 / 20 0 / 0 0 / 0 Other: Date of Last Bowel Movement 06/14/18 06/15/18 06/16/18 # Bowel Movements 1 Narrative: GENERAL: Intubated. Does not open eyes, withdrawals to lower extremity stimulation. SKIN: Warm and dry. NECK: Supple, trachea midline. No JVD. CARDIOVASCULAR: Regular rate and rhythm without murmurs, gallops, or rubs. RESPIRATORY: Breath sounds equal bilaterally. No accessory muscle use. Orally intubated. GASTROINTESTINAL: Abdomen soft, non-tender, nondistended. Dobhoff tube in right nare GENITOURINARY: Indwelling Hays catheter. MUSCULOSKELETAL: No cyanosis, Bilateral weeping edema in upper extremities. TUAN with drain in place left knee - Urinary Catheter Management Indwelling Urethral Catheter Cath placed during this visit: yes, but has since been removed by the nurse Urethral indwelling: Yes Reason for continuing: Hourly intake/output Insertion date: 06/15/18 Insertion time: 15:00 Removal date: 06/15/18 Removal time: 14:55 <Azul Lam - Last Filed: 06/16/18 11:54> Vital signs: Vital Signs 06/16/18 18:49 06/16/18 19:00 06/16/18 19:49 Temperature 100.0 F H 100.0 F H 100.0 F H Pulse Rate 69 84 74 Respiratory Rate Blood Pressure 140/65 125/60 Pulse Oximetry 100 100 100 06/16/18 20:00 06/16/18 20:34 06/16/18 20:49 Temperature 100.2 F H 100.0 F H Pulse Rate 69 81 Respiratory Rate 24 Blood Pressure 139/63 Pulse Oximetry 100 100 100 06/16/18 21:00 06/16/18 21:49 06/16/18 22:00 Temperature 100.0 F H 100.2 F H 100.2 F H Pulse Rate 75 87 87 Respiratory Rate Blood Pressure 149/60 H Pulse Oximetry 100 100 100 06/16/18 22:49 06/16/18 23:00 06/16/18 23:49 Temperature 100.2 F H 100.2 F H 100.4 F H Pulse Rate 90 87 84 Respiratory Rate Blood Pressure 146/66 H 126/58 L Pulse Oximetry 100 100 94 L 06/17/18 00:00 06/17/18 00:49 06/17/18 00:53 Temperature 100.4 F H 100.6 F H Pulse Rate 86 80 Respiratory Rate 25 H Blood Pressure 139/65 Pulse Oximetry 100 100 100 06/17/18 01:00 06/17/18 01:49 06/17/18 02:00 Temperature 100.8 F H 100.8 F H 100.8 F H Pulse Rate 72 88 79 Respiratory Rate Blood Pressure 155/70 H Pulse Oximetry 100 100 100 06/17/18 02:49 06/17/18 03:00 06/17/18 04:00 Temperature 100.8 F H 100.8 F H 100.8 F H Pulse Rate 73 72 83 Respiratory Rate Blood Pressure 139/63 Pulse Oximetry 100 100 100 06/17/18 04:03 06/17/18 04:26 06/17/18 04:49 Temperature 100.9 F H 100.8 F H Pulse Rate 75 90 Respiratory Rate 25 H Blood Pressure 126/59 L 149/67 H Pulse Oximetry 100 100 99 06/17/18 05:00 06/17/18 05:49 06/17/18 06:00 Temperature 100.8 F H 100.6 F H 100.6 F H Pulse Rate 81 77 81 Respiratory Rate 22 20 Blood Pressure 131/62 Pulse Oximetry 100 99 98 06/17/18 07:00 06/17/18 07:49 06/17/18 08:00 Temperature 100.2 F H 100.2 F H 100.2 F H Pulse Rate 85 88 88 Respiratory Rate 15 Blood Pressure 150/70 H Pulse Oximetry 100 100 100 06/17/18 08:16 06/17/18 08:49 06/17/18 09:00 Temperature 99.7 F H 99.5 F Pulse Rate 92 H 93 H Respiratory Rate 34 H Blood Pressure 155/73 H Pulse Oximetry 100 98 100 06/17/18 09:49 06/17/18 10:00 06/17/18 10:49 Temperature 99.3 F 99.3 F 99.5 F Pulse Rate 89 88 76 Respiratory Rate Blood Pressure 147/69 H 123/58 L Pulse Oximetry 100 100 100 06/17/18 11:00 06/17/18 11:49 06/17/18 12:00 Temperature 99.7 F H 99.5 F 99.5 F Pulse Rate 69 78 76 Respiratory Rate Blood Pressure 143/65 H Pulse Oximetry 100 100 100 06/17/18 12:28 06/17/18 12:49 06/17/18 13:00 Temperature 99.7 F H 99.7 F H Pulse Rate 75 88 Respiratory Rate 33 H Blood Pressure 124/59 L Pulse Oximetry 100 95 100 06/17/18 13:49 06/17/18 14:00 06/17/18 14:49 Temperature 99.7 F H 99.7 F H 99.1 F Pulse Rate 86 82 79 Respiratory Rate Blood Pressure 122/57 L 118/59 L Pulse Oximetry 100 100 100 06/17/18 15:00 06/17/18 15:49 06/17/18 15:50 Temperature 99.1 F 98.8 F 98.8 F Pulse Rate 79 76 90 Respiratory Rate Blood Pressure 132/101 H 133/93 H Pulse Oximetry 100 100 100 06/17/18 16:00 06/17/18 16:35 06/17/18 17:00 Temperature 99.1 F Pulse Rate 80 72 Respiratory Rate Blood Pressure Pulse Oximetry 100 99 100 06/17/18 17:17 06/17/18 18:00 Temperature 99.3 F Pulse Rate 91 H Respiratory Rate 26 H 15 Blood Pressure Pulse Oximetry 100 100 Intake & Output 06/16/18 06/17/18 06/17/18 18:59 06:59 18:59 Intake Total 2355.625 / 2355.625 925 / 925 700 / 700 Output Total 4250 / 4250 2425 / 2425 2950 / 2950 Balance -1894.375 / -1894.375 -1500 / -1500 -2250 / -2250 Weight 134.2 kg Intake: IV 1314.625 / 1314.625 105 / 105 405 / 405 Sodium Chloride 23.4% Inj 38.5 1009.625 / 1009.625 MEQ In Sterile Water for Inj 1, 000 ML @ 100 mls/hr IV.CONT . Q10H6M JACOB Rx#:[id number] Teflaro Inj 300 MG In NS Inj 100 / 100 100 ML @ 100 mls/hr IV.SIG Q12H JACOB Rx#:[id number] Cubicin Inj 800 MG In NS Inj 100 / 100 100 / 100 100 ML @ 200 mls/hr IV.SIG Q24H JACOB Rx#:[id number] INVanz Inj 1,000 MG In NS Inj 100 / 100 100 / 100 100 ML @ 200 mls/hr IV.SIG Q24H JACOB Rx#:[id number] Keppra Inj 500 MG In NS Inj 100 105 / 105 105 / 105 105 / 105 ML @ 400 mls/hr IV.SIG Q12H JACOB Rx#:[id number] Oral 700 / 700 Tube Feeding 341 / 341 320 / 320 295 / 295 Water Bolus Amount 500 / 500 Output: Urine 800 / 800 Urine Amount (Catheter) 3450 / 3450 2425 / 2425 2950 / 2950 Indwelling Urethral Catheter 3450 / 3450 2425 / 2425 2950 / 2950 Wound Drainage 0 / 0 # 1 Left Knee Hemovac 0 / 0 Other: Date of Last Bowel Movement 06/16/18 06/16/18 06/17/18 # Bowel Movements 0 0 # Incontinent Bowel Movements 1 - Urinary Catheter Management Indwelling Urethral Catheter Cath placed during this visit: no <Aurelia Powell - Last Filed: 06/17/18 18:47> Assessment and Plan - Assessment (1) Acute kidney failure Code(s): N17.9 - Acute kidney failure, unspecified Status: Acute Plan: Acute kidney injury with creatinine of 3.50. HCO3 at 20.6. Non oliguric. On day of consult On admission creatinine was noted to be 1.[address] on abdomen with no acute findings. Bilateral renal cysts noted. Patient may have some chronic kidney disease but baseline creatinine is not known. Proteinuria noted in urine. Creatinine started to increase on the 4th at 2.86. NIKKI with FeNA at 2.35 suggestive of ATN possibly from sepsis or contrast nephropathy. AIN in differential also with vancomycin/gentamicin levels elevated on the 4th. Creatinine unchanged at 2.32, non oliguric. Has indwelling Hays catheter. Bilateral upper extremity weeping edema, continue lasix BID. Avoid nephrotoxins as possible. Will follow urinary output and labs. Labs in AM <Azul Lam - Last Filed: 06/16/18 11:54> - Assessment (1) Acute kidney failure Code(s): N17.9 - Acute kidney failure, unspecified Status: Acute Plan: Patient seen and examined, agree with above. Creatinine is same, non oliguric, Possibly has ATN. Avoid Nephrotoxins, follow the BMP. <Aurelia Powell - Last Filed: 06/17/18 18:47>
[2018-06-16 12:44] LABS: Chol/HDL Ratio 3.81 Ratio; HDL Cholesterol 21.5 mg/dL (40.0-60.0)
[2018-06-16 13:02] LABS: T4 (Thyroxine) 2.1 mcg/dL (4.5-12.1)
[2018-06-16 13:26] LABS: Thyroid Stimulating Hormone 1.48 uIU/mL (0.358-3.740); Troponin I 0.03 ng/mL (0.02-0.05)
--- NOTE | 2018-06-16 16:12 | P.PNNS ---
Subjective Interval history: remains intubated, being cleaned by nursing, has eyes open. repeat MRI Brain shows multiple small infarcts. Physical Exam Vital signs: Vital Signs 06/15/18 17:10 06/15/18 18:00 06/15/18 18:10 Temperature 100.2 F H Pulse Rate 72 78 Respiratory Rate Blood Pressure 136/61 144/67 H Pulse Oximetry 98 99 06/15/18 19:00 06/15/18 19:10 06/15/18 19:52 Temperature 100.6 F H 100.4 F H Pulse Rate 81 87 Respiratory Rate 23 24 Blood Pressure 156/71 H Pulse Oximetry 100 99 100 06/15/18 20:00 06/15/18 20:10 06/15/18 21:00 Temperature 100.6 F H 100.6 F H 100.6 F H Pulse Rate 92 H 93 H 79 Respiratory Rate 21 20 20 Blood Pressure 155/70 H Pulse Oximetry 99 98 100 06/15/18 21:10 06/15/18 22:00 06/15/18 22:10 Temperature 100.8 F H 100.6 F H 100.6 F H Pulse Rate 78 76 77 Respiratory Rate 24 22 26 H Blood Pressure 141/65 H 141/63 H Pulse Oximetry 100 100 100 06/15/18 23:00 06/15/18 23:10 06/15/18 23:30 Temperature Pulse Rate 91 H 97 H Respiratory Rate 23 22 27 H Blood Pressure 153/89 H Pulse Oximetry 95 100 99 06/16/18 00:00 06/16/18 00:10 06/16/18 01:00 Temperature 100.9 F H 100.9 F H Pulse Rate 77 75 78 Respiratory Rate 21 22 24 Blood Pressure 143/65 H Pulse Oximetry 99 99 99 06/16/18 01:10 06/16/18 02:00 06/16/18 02:10 Temperature 100.9 F H 101.3 F H 101.3 F H Pulse Rate 87 75 74 Respiratory Rate 26 H 18 21 Blood Pressure 149/77 H 129/64 Pulse Oximetry 99 94 L 99 06/16/18 02:59 06/16/18 03:00 06/16/18 03:10 Temperature 100.6 F H 100.4 F H Pulse Rate 77 75 Respiratory Rate 22 24 Blood Pressure 129/61 136/65 Pulse Oximetry 95 100 06/16/18 03:28 06/16/18 04:00 06/16/18 04:12 Temperature 99.9 F H 99.9 F H Pulse Rate 76 87 Respiratory Rate 26 H 22 23 Blood Pressure 167/76 H Pulse Oximetry 96 99 100 06/16/18 04:13 06/16/18 05:00 06/16/18 05:12 Temperature 99.9 F H 99.5 F 99.5 F Pulse Rate 87 87 85 Respiratory Rate 25 H 26 H Blood Pressure 157/70 H 150/66 H Pulse Oximetry 100 99 94 L 06/16/18 06:00 06/16/18 06:09 06/16/18 07:00 Temperature 99.7 F H 99.7 F H 100.0 F H Pulse Rate 87 90 72 Respiratory Rate 24 21 Blood Pressure 159/71 H 123/58 L Pulse Oximetry 99 99 100 06/16/18 07:15 06/16/18 07:30 06/16/18 07:45 Temperature 100.0 F H 98.2 F 100.0 F H Pulse Rate 73 61 84 Respiratory Rate Blood Pressure 130/63 133/62 142/70 H Pulse Oximetry 100 100 100 06/16/18 08:00 06/16/18 08:15 06/16/18 08:25 Temperature 100.2 F H 100.2 F H Pulse Rate 77 62 Respiratory Rate Blood Pressure 142/73 H 132/61 Pulse Oximetry 100 100 100 06/16/18 08:30 06/16/18 08:45 06/16/18 09:00 Temperature 100.2 F H 100.4 F H 100.4 F H Pulse Rate 78 66 87 Respiratory Rate Blood Pressure 157/71 H 128/70 167/81 H Pulse Oximetry 100 100 100 06/16/18 09:15 06/16/18 09:30 06/16/18 09:45 Temperature 100.4 F H 100.8 F H 100.8 F H Pulse Rate 81 77 66 Respiratory Rate Blood Pressure 137/66 160/64 H 156/71 H Pulse Oximetry 100 100 100 06/16/18 10:00 06/16/18 10:15 06/16/18 10:30 Temperature 100.9 F H 100.9 F H 100.8 F H Pulse Rate 68 68 67 Respiratory Rate Blood Pressure 133/61 134/55 L 124/60 Pulse Oximetry 100 100 100 06/16/18 10:45 06/16/18 11:00 06/16/18 11:13 Temperature 100.6 F H 100.4 F H 100.0 F H Pulse Rate 64 90 70 Respiratory Rate Blood Pressure 130/61 113/56 L Pulse Oximetry 100 100 100 06/16/18 12:00 06/16/18 12:18 06/16/18 12:49 Temperature 99.9 F H 99.7 F H Pulse Rate 64 64 Respiratory Rate 15 Blood Pressure 117/59 L 123/58 L Pulse Oximetry 100 100 100 06/16/18 13:00 06/16/18 13:49 06/16/18 14:00 Temperature 99.7 F H 99.9 F H 99.9 F H Pulse Rate 66 69 70 Respiratory Rate Blood Pressure 130/62 Pulse Oximetry 100 100 100 Intake & Output 06/15/18 06/16/18 06/16/18 18:59 06:59 18:59 Intake Total 3164.250 / 3164.250 1173 / 1173 1209.625 / 1209.625 Output Total 1645 / 1645 3000 / 3000 1800 / 1800 Balance 1519.250 / 1519.250 -1827 / -1827 -590.375 / -590.375 Weight 134.8 kg Intake: IV 2024.250 / 2024.250 105 / 105 1209.625 / 1209.625 Sodium Chloride 23.4% Inj 38.5 1719.250 / 0027.532 5577.625 / 1009.625 MEQ In Sterile Water for Inj 1, 000 ML @ 100 mls/hr IV.CONT . Q10H6M JACOB Rx#:[id number] Cubicin Inj 800 MG In NS Inj 100 / 100 100 / 100 100 ML @ 200 mls/hr IV.SIG Q24H JACOB Rx#:[id number] INVanz Inj 1,000 MG In NS Inj 100 / 100 100 / 100 100 ML @ 200 mls/hr IV.SIG Q24H JACOB Rx#:[id number] Keppra Inj 500 MG In NS Inj 100 105 / 105 105 / 105 ML @ 400 mls/hr IV.SIG Q12H JACOB Rx#:[id number] Tube Feeding 350 / 350 568 / 568 Tube Irrigant 540 / 540 Water Bolus Amount 250 / 250 500 / 500 Output: Urine Amount (Catheter) 1625 / 1625 3000 / 3000 1800 / 1800 Indwelling Urethral Catheter 1625 / 1625 3000 / 3000 1800 / 1800 Wound Drainage 20 0 / 0 0 / 0 # 1 Left Knee Hemovac 20 0 / 0 0 / 0 Other: Date of Last Bowel Movement 06/14/18 06/15/18 06/16/18 # Bowel Movements 1 Narrative: intubated has eyes open but not following commands - Urinary Catheter Management Indwelling Urethral Catheter Cath placed during this visit: yes, but has since been removed by the nurse Urethral indwelling: Yes Reason for continuing: Hourly intake/output Insertion date: 06/15/18 Insertion time: 15:00 Removal date: 06/15/18 Removal time: 14:55 Assessment and Plan - Plan 68 year old male with basal ganglia/brainstem hemorrhage, ? perimesencephalic hemorrhage. Stable GCS-5T Septicemia, Bacteremia, f/u CT Brain 06/14/18 showed resolution of previous ICH EEG 06/14 with moderate encephalopathy, no seizures repeat MRI Brain 06/15/18 with multiple strokes Plan: dw critical care regarding MRI results - Neurology consulted ammonia levels normal cont antibiotic therapy per ID neuro checks and follow up exam
--- NOTE | 2018-06-16 18:08 | P.PNCC ---
Subjective Subjective Remarks/Hospital Course: 06/03: Patient is a 68-year-old male with past medical history significant for type 2 diabetes, hypertension, morbid obesity who presented to the [facility] emergency department with weakness and slurred speech. Symptoms present for 2 days, apparently he was found on the floor of his mobile home. He was noted to have high fever at the [facility] his WBC count was 21.3 UA was positive. His sodium was 134 BUN 50 with a creatinine of 2.33 bicarb was 16 lactic acid was 6.8. CPK more than 3000 at the outside hospital. A CT of the head showed focal hemorrhage into the right quadrigeminal plate cistern. Dr. Hopkins was contacted who accepted the patient and requested admission to critical care. Patient was accepted to [facility] at [place] Dr. Deluca evaluated the patient in the [facility], he is lying in the bed. Slightly tachypneic moderate distress. Patient is oriented to place and person. CT of the head repeated here at [place] showed hemorrhage along the posterior aspect of the brainstem measuring up to 2.8 cm in maximal diameter. Mild mass effect on the brainstem. No hydrocephalus. I have started the patient on Cardene infusion for tight blood pressure control. Zosyn for UTI. 2% saline will be started to keep sodium above 150. Avoid mannitol due to renal failure. Keppra for seizure prophylaxis. I am unable to find coags but platelet count was normal. 06/04: MRSA bacteremia ob blood cultures drawn on admission. Currently on precedex, on room air. Awake, follows commands, speech, unintelligible. Started on IV vanc. ID consulted as concern for septic emboli/ endocarditis as cause for brainstem bleed. 06/05: 48 hours following a mid brain spontaneous hemorrhage complicated by numerous MRSA blood cultures. Blood pressure acceptably well controlled. Fever pattern persists. Patient tolerating extubation and protecting airway adequately. Taper completely off Precedex. Serum osmolality acceptably concentrated. 06/06: Serum osmolality acceptable, will allow sodium to drift back into the lower 150s now. Patient is alert and interactive. He moves 4 limbs spontaneously. Episodic fevers to 102+. We will continue with infectious disease workup for source of bacteremia. Endocarditis remains high on the list of possibilities. 06/07: Awake, alert, following commands. Speech very slurred however responds appropriately. Slight disorientation. Thought he was in [place]. Knows he is in the hospital. Complains of back pain. 06/08: Drowsy, arousable, tachypneic. Sodium up to 163, started on D5W and free water. Creatinine up. Tolerating tube feeds. Awaiting MRI. Will need LAURIE. Will need intubation probably for airway and in order to transport for MRI and LAURIE. 06/09: Patient intubated and placed on mechanical ventilation on 06/09. Dr. Hopkins has cleared patient for LAURIE/anticoagulation/valve surgery if needed. We are awaiting LAURIE for further evaluation of MRSA bacteremia by cardiology to determine source. Orthopedics evaluating left knee synovitis/effusion/meniscal tear. 06/10: Underwent aspiration of the left knee yesterday which is growing MRSA. Remains sedated, orally intubated on mechanical ventilation. Underwent LAURIE today which did not reveal any vegetation. Being followed by orthopedics/ID/ neurosurgery. 06/11: Remains orally intubated on mechanical ventilation. Scheduled for OR for left knee septic arthritis with Dr. Carlson. 06/12: Remains orally intubated on mechanical ventilation. Waiting for OR for left knee septic arthritis with Dr. Carlson 06/13: Remains intubated sedated. On sedation hold localizes to pain. Status post left knee lateral arthrotomy with irrigation and debridement. Fluid culture growing MRSA 06/14: Remains intubated sedated. On sedation hold now not waking up or following commands weakly withdraws extremities. WBC count increasing. Sodium coming down with hypotonic saline. 06/15: All sedation now held more than 36 hours. No significant improvement in mentation. Spontaneously moving upper extremity withdraws lowers to pain. CT of the head yesterday essentially unchanged with resolution of previously seen subarachnoid hemorrhage in the basal cisterns 06/16: Failed CPAP after 20 minutes this morning due to erratic and rapid respiratory effort. Opens eyes with movement but does not focus or track. Objective Vital Signs / I&O: Vital Signs 06/15/18 18:10 06/15/18 19:00 06/15/18 19:10 Temperature 100.6 F H 100.4 F H Pulse Rate 81 87 Respiratory Rate 23 Blood Pressure 144/67 H 156/71 H Pulse Oximetry 100 99 06/15/18 19:52 06/15/18 20:00 06/15/18 20:10 Temperature 100.6 F H 100.6 F H Pulse Rate 92 H 93 H Respiratory Rate 24 21 20 Blood Pressure 155/70 H Pulse Oximetry 100 99 98 06/15/18 21:00 06/15/18 21:10 06/15/18 22:00 Temperature 100.6 F H 100.8 F H 100.6 F H Pulse Rate 79 78 76 Respiratory Rate 20 24 22 Blood Pressure 141/65 H Pulse Oximetry 100 100 100 06/15/18 22:10 06/15/18 23:00 06/15/18 23:10 Temperature 100.6 F H Pulse Rate 77 91 H 97 H Respiratory Rate 26 H 23 22 Blood Pressure 141/63 H 153/89 H Pulse Oximetry 100 95 100 06/15/18 23:30 06/16/18 00:00 06/16/18 00:10 Temperature 100.9 F H Pulse Rate 77 75 Respiratory Rate 27 H 21 22 Blood Pressure 143/65 H Pulse Oximetry 99 99 99 06/16/18 01:00 06/16/18 01:10 06/16/18 02:00 Temperature 100.9 F H 100.9 F H 101.3 F H Pulse Rate 78 87 75 Respiratory Rate 24 26 H 18 Blood Pressure 149/77 H Pulse Oximetry 99 99 94 L 06/16/18 02:10 06/16/18 02:59 06/16/18 03:00 Temperature 101.3 F H 100.6 F H Pulse Rate 74 77 Respiratory Rate 21 22 Blood Pressure 129/64 129/61 Pulse Oximetry 99 95 06/16/18 03:10 06/16/18 03:28 06/16/18 04:00 Temperature 100.4 F H 99.9 F H Pulse Rate 75 76 Respiratory Rate 24 26 H 22 Blood Pressure 136/65 Pulse Oximetry 100 96 99 06/16/18 04:12 06/16/18 04:13 06/16/18 05:00 Temperature 99.9 F H 99.9 F H 99.5 F Pulse Rate 87 87 87 Respiratory Rate 23 25 H Blood Pressure 167/76 H 157/70 H Pulse Oximetry 100 100 99 06/16/18 05:12 06/16/18 06:00 06/16/18 06:09 Temperature 99.5 F 99.7 F H 99.7 F H Pulse Rate 85 87 90 Respiratory Rate 26 H 24 21 Blood Pressure 150/66 H 159/71 H Pulse Oximetry 94 L 99 99 06/16/18 07:00 06/16/18 07:15 06/16/18 07:30 Temperature 100.0 F H 100.0 F H 98.2 F Pulse Rate 72 73 61 Respiratory Rate Blood Pressure 123/58 L 130/63 133/62 Pulse Oximetry 100 100 100 06/16/18 07:45 06/16/18 08:00 06/16/18 08:15 Temperature 100.0 F H 100.2 F H 100.2 F H Pulse Rate 84 77 62 Respiratory Rate Blood Pressure 142/70 H 142/73 H 132/61 Pulse Oximetry 100 100 100 06/16/18 08:25 06/16/18 08:30 06/16/18 08:45 Temperature 100.2 F H 100.4 F H Pulse Rate 78 66 Respiratory Rate Blood Pressure 157/71 H 128/70 Pulse Oximetry 100 100 100 06/16/18 09:00 06/16/18 09:15 06/16/18 09:30 Temperature 100.4 F H 100.4 F H 100.8 F H Pulse Rate 87 81 77 Respiratory Rate Blood Pressure 167/81 H 137/66 160/64 H Pulse Oximetry 100 100 100 06/16/18 09:45 06/16/18 10:00 06/16/18 10:15 Temperature 100.8 F H 100.9 F H 100.9 F H Pulse Rate 66 68 68 Respiratory Rate Blood Pressure 156/71 H 133/61 134/55 L Pulse Oximetry 100 100 100 06/16/18 10:30 06/16/18 10:45 06/16/18 11:00 Temperature 100.8 F H 100.6 F H 100.4 F H Pulse Rate 67 64 90 Respiratory Rate Blood Pressure 124/60 130/61 Pulse Oximetry 100 100 100 06/16/18 11:13 06/16/18 12:00 06/16/18 12:18 Temperature 100.0 F H 99.9 F H Pulse Rate 70 64 Respiratory Rate 15 Blood Pressure 113/56 L 117/59 L Pulse Oximetry 100 100 100 06/16/18 12:49 06/16/18 13:00 06/16/18 13:49 Temperature 99.7 F H 99.7 F H 99.9 F H Pulse Rate 64 66 69 Respiratory Rate Blood Pressure 123/58 L 130/62 Pulse Oximetry 100 100 100 06/16/18 14:00 06/16/18 14:49 06/16/18 15:00 Temperature 99.9 F H 99.9 F H 99.9 F H Pulse Rate 70 68 80 Respiratory Rate Blood Pressure 132/62 Pulse Oximetry 100 100 100 06/16/18 15:49 06/16/18 16:00 06/16/18 16:49 Temperature 99.7 F H 99.9 F H 100.0 F H Pulse Rate 65 82 65 Respiratory Rate 15 Blood Pressure 119/58 L 131/63 Pulse Oximetry 100 100 100 06/16/18 17:00 Temperature 100.0 F H Pulse Rate 71 Respiratory Rate Blood Pressure Pulse Oximetry 100 Intake & Output 06/15/18 06/16/18 06/16/18 18:59 06:59 18:59 Intake Total 3164.250 / 3164.250 1173 / 1173 1655.625 / 1655.625 Output Total 1645 / 1645 3000 / 3000 3450 / 3450 Balance 1519.250 / 1519.250 -1827 / -1827 -1794.375 / -1794.375 Weight 134.8 kg Intake: IV 2024.250 / 2024.250 105 / 105 1314.625 / 1314.625 Sodium Chloride 23.4% Inj 38.5 1719.250 / 0477.710 6121.625 / 1009.625 MEQ In Sterile Water for Inj 1, 000 ML @ 100 mls/hr IV.CONT . Q10H6M JACOB Rx#:[id number] Cubicin Inj 800 MG In NS Inj 100 / 100 100 / 100 100 ML @ 200 mls/hr IV.SIG Q24H JACOB Rx#:[id number] INVanz Inj 1,000 MG In NS Inj 100 / 100 100 / 100 100 ML @ 200 mls/hr IV.SIG Q24H JACOB Rx#:[id number] Keppra Inj 500 MG In NS Inj 100 105 / 105 105 / 105 105 / 105 ML @ 400 mls/hr IV.SIG Q12H JACOB Rx#:[id number] Tube Feeding 350 / 350 568 / 568 341 / 341 Tube Irrigant 540 / 540 Water Bolus Amount 250 / 250 500 / 500 Output: Urine Amount (Catheter) 1625 / 1625 3000 / 3000 3450 / 3450 Indwelling Urethral Catheter 1625 / 1625 3000 / 3000 3450 / 3450 Wound Drainage 0 / 0 0 / 0 # 1 Left Knee Hemovac 0 / 0 0 / 0 Other: Date of Last Bowel Movement 06/14/18 06/15/18 06/16/18 # Bowel Movements 2 Result Diagrams: 06/15/18 04:13 06/16/18 05:53 Objective Remarks: GENERAL: 68-year-old male lying in ICU bed , remains encephalopathic, orally intubated on mechanical ventilation SKIN: Focused skin assessment warm/dry. HEAD: Atraumatic. Normocephalic. EYES: Pupils equal and round. No conjunctival icterus. No injection or drainage. ENT: No nasal bleeding or discharge. Orotracheal intubation. CARDIOVASCULAR: Normal S1-S2. No murmurs. Regular rate and rhythm. No JVD. RESPIRATORY: On mechanical ventilation, air entry decreased bilaterally at bases , scattered rhonchi GASTROINTESTINAL: Abdomen soft, non-tender, nondistended. BS present. No guarding. MUSCULOSKELETAL: Warm, well perfused. Left knee Hemovac drain in place NEUROLOGICAL: Encephalopathic off all sedation, orally intubated, Pupils equal 3mm, reactive. Patient localizes to pain with LUE, slightly withdraws the lower extremities. Opens eyes but does not focus or track. Assessment and Plan - Problem List (1) 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 Status: Acute (2) Encephalopathy acute Code(s): G93.40 - Encephalopathy, unspecified Status: Acute (3) Acute kidney failure Code(s): N17.9 - Acute kidney failure, unspecified Status: Acute (4) Severe sepsis Code(s): A41.9 - Sepsis, unspecified organism; R65.20 - Severe sepsis without septic shock Status: Acute (5) Metabolic acidemia Code(s): E87.2 - Acidosis Status: Acute (6) UTI (urinary tract infection) Code(s): N39.0 - Urinary tract infection, site not specified Status: Acute (7) Lactic acidosis Code(s): E87.2 - Acidosis Status: Acute (8) Rhabdomyolysis Code(s): M62.82 - Rhabdomyolysis Status: Acute (9) Obesity Code(s): E66.9 - Obesity, unspecified Status: Chronic (10) Hypertension Code(s): I10 - Essential (primary) hypertension Status: Chronic (11) Diabetes Code(s): E11.9 - Type 2 diabetes mellitus without complications Status: Chronic - Assessment and Plan Plan: NEURO: Brainstem hemorrhage measuring up to 2.8 cm in maximal diameter, mild mass effect Metabolic encephalopathy -Repeat CT 06/14: Subarachnoid hemorrhage in the basal cisterns no longer seen. Check MRI -EEG done yesterday 06/14/2018 shows moderate encephalopathy -Neurosurgery Dr. Hopkins -Currently on free water/1/2 NS for hypernatremia -Close neuro monitoring. Prev MRI/MRA brain results noted -Head CT 06/08 shows resolving brainstem hemorrhage. -Keppra for seizure prophylaxis -Discontinue all sedation DC propofol, Precedex, Fentanyl -With MRSA bacteremia suspect septic emboli with mycotic aneurism vs hypertensive bleed. -MRI spine reviewed, no evidence of epidural abscess RESP: Acute respiratory failure on mechanical ventilation Past smoking -DuoNeb every as needed -Continue mechanical ventilation, vent bundle, bronchodilators as needed -Daily CPAP trials. -Mental status will not permit extubation -Intubated on 06/08/2018, vent day 9 patient, will need tracheostomy if family wants to pursue aggressive care CV: Lactic acidemia Hypotension History of hypertension -Initial lactic acid at the outside hospital was 6.8 -Resuscitated with normal saline IV fluids, transthoracic echo -Half NS due to hypernatremia -Cardiology Dr. Odonnell consulted to perform LAURIE to evaluate for endocarditis -LAURIE 06/10-ve for any vegetations. GI: -NG tube in place. Tube feeds and advance to goal as tolerated. : Acute kidney injury Rhabdomyolysis -Monitor renal function closely. Replace Hays catheter due to candiduria, repeat culture -Strict intake output, monitor and replete electrolytes. -Nephrology following for rising creatinine-suspect multifactorial secondary to sepsis/vancomycin/gentamicin toxicity/IV contrast exposure. ID: Severe sepsis ESBL E. coli UTI MRSA bacteremia MRSA left knee septic arthritis -On Cubicin. Cefepime changed to Invanz on 06/10 for ESBL E. coli in urine culture -Status post left knee lateral arthrotomy with irrigation and debridement. Fluid culture growing MRSA -s/p MRI left knee due to swelling -orthopedics performed left knee aspiration on 06/09 with drainage of 60 cc of purulent cloudy fluid which is growing MRSA. -Vancomycin and gentamicin discontinued on 06/08 per ID due to worsening renal function. Blood cultures positive for MRSA (10/07) - ID Dr. Rodriguez -LAURIE negative for vegetation on 06/10 -Ortho following and to decide further management for left knee septic arthritis - HEME: Leukocytosis secondary to sepsis -Monitor CBC, coags ENDO: Type 2 diabetes -Sliding scale insulin -Basal long-acting insulin PROPH: -Bilateral lower extremity SCDs. IV famotidine. Subcutaneous heparin for DVT prophylaxis which was cleared by neurosurgery. LINES: -Utilize peripheral IVs, central line if needed Overall impression: Blood pressure control remains problematic and will need additional scheduled medication. Agitation appears better controlled. Bacteremia remains persistent and possibly life-threatening problem 06/08: D/W Dr. Hopkins. called patient's son Abraham Bautista at [phone] and updated him regarding current clinical status and plan to intubate and place on mech ventilation due to concern regarding airway protection and in order to safely get imaging and possibly LAURIE and he voiced understanding and was agreeable. Critical care 38 minutes aside from procedures. (1) Brain stem hemorrhage Qualifiers: Intracerebral hemorrhage etiology: nontraumatic
[2018-06-17] MEDS: Insulin NovoLIN Regular Correctional Sugar Inj SQ SCH ×5 (00:57→17:27)
[2018-06-17] MEDS: Oral Hygiene Kit OROPHARYNG SCH ×4 (01:09→15:06)
[2018-06-17 04:04] LABS: Baso # (Auto) 0.1 th/mm3 (0.0-0.2); Baso % (Auto) 0.7 % (0.0-2.0); Eos # (Auto) 0.2 th/mm3 (0.0-0.4); Eos % (Auto) 1.7 % (0.0-4.0); Hemoglobin 8.4 gm/dL (13.0-17.0); Lymph # (Auto) 1.3 th/mm3 (1.0-4.8); Lymph % (Auto) 13.8 % (9.0-44.0); Mean Corpuscular HGB Conc 33.8 % (32.0-36.0); Mean Corpuscular Hemoglobin 30.1 pg (27.0-34.0); Mean Platelet Volume 8.5 fL (7.0-11.0); Mono # (Auto) 0.7 th/mm3 (0.0-0.9); Mono % (Auto) 7.3 % (0.0-8.0); Neut # (Auto) 7.1 th/mm3 (1.8-7.7); Neut % (Auto) 76.5 % (16.0-70.0); Platelet Count 325 th/mm3 (150-450); Red Blood Count 2.81 mil/mm3 (4.50-5.90); Red Cell Distribution Width 15.9 % (11.6-17.2); White Blood Count 9.3 th/mm3 (4.0-11.0)
[2018-06-17 04:36] LABS: Calcium 8.6 mg/dL (8.5-10.1); Carbon Dioxide 21.7 meq/L (21.0-32.0); Potassium 4.5 meq/L (3.5-5.1)
[2018-06-17] MEDS: Heparin - SQ 10,000 UNITS/ML Vial SQ SCH ×2 (08:12→20:54)
[2018-06-17] MEDS: Chlorhexidine 0.12% Oral Kit 15 ML UDC OROPHARYNG SCH ×2 (08:12→20:54)
[2018-06-17] MEDS: Sodium Chloride 23.4% Inj 38.5 MEQ in Water for Inj, Sterile 1,000 ML IV.CONT SCH ×2 (08:12→09:59)
[2018-06-17] MEDS: Fluconazole 100 MG Tablet PO SCH (08:12)
--- NOTE | 2018-06-17 08:12 | P.PNNEU ---
Subjective Active Medications: Active Medications Acetaminophen (Tylenol) 650 mg PO Q6H PRN PRN Reason: PAIN 1-10 AND/OR FEVER >101F Last Admin: 06/16/18 09:29 Dose: 650 mg Al Hydroxide/Mg Hydroxide (Milk Of Magnfernando Liq) 30 ml PO Q12H PRN PRN Reason: Mild Constipation Last Admin: 06/12/18 18:52 Dose: 30 ml Albuterol (Duoneb Neb (Prn)) 1 ampul NEB Q2HR NEB PRN PRN Reason: WHEEZING Last Admin: 06/14/18 10:57 Dose: 1 ampul Bisacodyl (Dulcolax Supp) 10 mg RECTAL DAILY PRN PRN Reason: SEVERE CONSITIPATION Chlorhexidine Gluconate (Peridex 0.12% Oral Kit) 15 ml OROPHARYNG BID@0800, 2000 [facility] Last Admin: 06/16/18 21:20 Dose: 15 ml Clonidine HCl (Catapres) 0.1 mg PO Q6H PRN PRN Reason: SBP>160, DBP>90 Dextrose (D50w Vial) 50 ml IV.PUSH UNSCH PRN PRN Reason: PER HYPOGLYCEMIA PROTOCOL Famotidine (Pepcid Pf Inj) 10 mg IV.PUSH Q12HR [facility] Last Admin: 06/16/18 21:21 Dose: 10 mg Fluconazole (Diflucan) 100 mg PO DAILY [facility] Stop: 06/23/18 10:29 Last Admin: 06/16/18 10:30 Dose: 100 mg Furosemide (Lasix Inj) 40 mg IV.PUSH BID@0900,1800 [facility] Last Admin: 06/16/18 17:01 Dose: 40 mg Glucagon (Glucagon Inj) 1 mg OTHER PRN PRN PRN Reason: for Hypoglycemia Protocol Heparin Sodium (Porcine) (Heparin Inj) 5,000 units SQ Q12HR [facility] Last Admin: 06/16/18 21:20 Dose: 5,000 units Levetiracetam 500 mg/ Sodium (Chloride) 105 mls @ 400 mls/hr IV.SIG Q12H [facility] Last Infusion: 06/17/18 05:29 Dose: Infused Sodium Phosphate 30 mmol/ (Sodium Chloride) 260 mls @ 42 mls/hr IV.SIG UNSCH PRN PRN Reason: For Phosphorus < 2.5 mg/dL Norepinephrine Bitartrate (Levophed-Dextrose 4 Mg/250 Ml Drip) 4 mg in 250 mls @ 7.5 mls/hr IV.SIG TITRATE PRN; Protocol PRN Reason: Per Protocol Ertapenem 1,000 mg/ Sodium (Chloride) 100 mls @ 200 mls/hr IV.SIG Q24H [facility] Last Infusion: 06/16/18 13:38 Dose: Infused Sodium Chloride 38.5 meq/ (Sterile Water) 1,009.625 mls @ 100 mls/hr IV.CONT .Q10H6M [facility] Last Infusion: 06/17/18 03:19 Dose: 100 mls/hr Daptomycin 800 mg/ Sodium (Chloride) 100 mls @ 200 mls/hr IV.SIG Q24H [facility] Last Infusion: 06/16/18 12:29 Dose: Infused Insulin Human Regular (Novolin R Correctional Sugar Inj) 0 units SQ Q4HR [facility]; Protocol Last Admin: 06/17/18 05:11 Dose: Not Given Labetalol HCl (Trandate Inj) 10 mg IV.PUSH Q2H PRN PRN Reason: BP > 140/90 Last Admin: 06/16/18 06:34 Dose: 10 mg Lactulose (Lactulose Liq) 30 ml PO DAILY PRN PRN Reason: SEVERE CONSITIPATION Last Admin: 06/14/18 00:55 Dose: 30 ml Miscellaneous Medication () 1 each OROPHARYNG 0000,0400,1200,1600 [facility] Last Admin: 06/17/18 05:11 Dose: 1 each Multi-Ingredient Ointment (Blistex Lip [place]) 1 applic TOPICAL UNSCH PRN PRN Reason: FOR DRY LIPS Last Admin: 06/16/18 12:48 Dose: 1 applic Senna/Docusate Sodium (Shasha-Colace) 1 tab PO BID [facility] Last Admin: 06/16/18 21:13 Dose: Not Given Sennosides (Senokot) 17.2 mg PO Q12H PRN PRN Reason: Moderate Constipation Last Admin: 06/12/18 18:52 Dose: 17.2 mg Sodium Chloride (Ns Flush) 2 ml IV.FLUSH BID [facility] Last Admin: 06/16/18 21:21 Dose: 2 ml Sodium Chloride (Ns Flush) 2 ml IV.FLUSH PRN PRN PRN Reason: FLUSH AFTER USING IV ACCESS Last Admin: 06/12/18 20:08 Dose: 2 ml Sterile Water (Free Water) 250 ml G-TUBE Q8HR [facility] Last Admin: 06/17/18 05:45 Dose: 250 ml Terbutaline Sulfate (Brethine Inj) 1 mg SQ UNSCH PRN PRN Reason: For Extravasation Allergies/Adverse Reactions: Allergies Allergy/AdvReac Type Severity Reaction Status Date / Time No Known Allergies Allergy Verified 06/03/18 01:32 Physical Exam Vital signs: Vital Signs 06/16/18 08:15 06/16/18 08:25 06/16/18 08:30 Temperature 100.2 F H 100.2 F H Pulse Rate 62 78 Respiratory Rate Blood Pressure 132/61 157/71 H Pulse Oximetry 100 100 100 06/16/18 08:45 06/16/18 09:00 06/16/18 09:15 Temperature 100.4 F H 100.4 F H 100.4 F H Pulse Rate 66 87 81 Respiratory Rate Blood Pressure 128/70 167/81 H 137/66 Pulse Oximetry 100 100 100 06/16/18 09:30 06/16/18 09:45 06/16/18 10:00 Temperature 100.8 F H 100.8 F H 100.9 F H Pulse Rate 77 66 68 Respiratory Rate Blood Pressure 160/64 H 156/71 H 133/61 Pulse Oximetry 100 100 100 06/16/18 10:15 06/16/18 10:30 06/16/18 10:45 Temperature 100.9 F H 100.8 F H 100.6 F H Pulse Rate 68 67 64 Respiratory Rate Blood Pressure 134/55 L 124/60 130/61 Pulse Oximetry 100 100 100 06/16/18 11:00 06/16/18 11:13 06/16/18 12:00 Temperature 100.4 F H 100.0 F H 99.9 F H Pulse Rate 90 70 64 Respiratory Rate Blood Pressure 113/56 L 117/59 L Pulse Oximetry 100 100 100 06/16/18 12:18 06/16/18 12:49 06/16/18 13:00 Temperature 99.7 F H 99.7 F H Pulse Rate 64 66 Respiratory Rate 15 Blood Pressure 123/58 L Pulse Oximetry 100 100 100 06/16/18 13:49 06/16/18 14:00 06/16/18 14:49 Temperature 99.9 F H 99.9 F H 99.9 F H Pulse Rate 69 70 68 Respiratory Rate Blood Pressure 130/62 132/62 Pulse Oximetry 100 100 100 06/16/18 15:00 06/16/18 15:49 06/16/18 16:00 Temperature 99.9 F H 99.7 F H 99.9 F H Pulse Rate 80 65 82 Respiratory Rate Blood Pressure 119/58 L Pulse Oximetry 100 100 100 06/16/18 16:49 06/16/18 17:00 06/16/18 17:49 Temperature 100.0 F H 100.0 F H 100.0 F H Pulse Rate 65 71 69 Respiratory Rate 15 Blood Pressure 131/63 140/62 Pulse Oximetry 100 100 100 06/16/18 18:00 06/16/18 18:49 06/16/18 19:00 Temperature 100.0 F H 100.0 F H 100.0 F H Pulse Rate 71 69 84 Respiratory Rate Blood Pressure 140/65 Pulse Oximetry 100 100 100 06/16/18 19:49 06/16/18 20:00 06/16/18 20:34 Temperature 100.0 F H 100.2 F H Pulse Rate 74 69 Respiratory Rate 24 Blood Pressure 125/60 Pulse Oximetry 100 100 100 06/16/18 20:49 06/16/18 21:00 06/16/18 21:49 Temperature 100.0 F H 100.0 F H 100.2 F H Pulse Rate 81 75 87 Respiratory Rate Blood Pressure 139/63 149/60 H Pulse Oximetry 100 100 100 06/16/18 22:00 06/16/18 22:49 06/16/18 23:00 Temperature 100.2 F H 100.2 F H 100.2 F H Pulse Rate 87 90 87 Respiratory Rate Blood Pressure 146/66 H Pulse Oximetry 100 100 100 06/16/18 23:49 06/17/18 00:00 06/17/18 00:49 Temperature 100.4 F H 100.4 F H 100.6 F H Pulse Rate 84 86 80 Respiratory Rate Blood Pressure 126/58 L 139/65 Pulse Oximetry 94 L 100 100 06/17/18 00:53 06/17/18 01:00 06/17/18 01:49 Temperature 100.8 F H 100.8 F H Pulse Rate 72 88 Respiratory Rate 25 H Blood Pressure 155/70 H Pulse Oximetry 100 100 100 06/17/18 02:00 06/17/18 02:49 06/17/18 03:00 Temperature 100.8 F H 100.8 F H 100.8 F H Pulse Rate 79 73 72 Respiratory Rate Blood Pressure 139/63 Pulse Oximetry 100 100 100 06/17/18 04:00 06/17/18 04:03 06/17/18 04:26 Temperature 100.8 F H 100.9 F H Pulse Rate 83 75 Respiratory Rate 25 H Blood Pressure 126/59 L Pulse Oximetry 100 100 100 06/17/18 04:49 06/17/18 05:00 06/17/18 05:49 Temperature 100.8 F H 100.8 F H 100.6 F H Pulse Rate 90 81 77 Respiratory Rate 22 Blood Pressure 149/67 H 131/62 Pulse Oximetry 99 100 99 06/17/18 06:00 06/17/18 07:00 Temperature 100.6 F H 100.2 F H Pulse Rate 81 85 Respiratory Rate 20 15 Blood Pressure Pulse Oximetry 98 100 Intake & Output 06/16/18 06/17/18 06/17/18 18:59 06:59 18:59 Intake Total 2355.625 / 2355.625 925 / 925 Output Total 4250 / 4250 2425 / 2425 Balance -1894.375 / -1894.375 -1500 / -1500 Weight 134.2 kg Intake: IV 1314.625 / 1314.625 105 / 105 Sodium Chloride 23.4% Inj 38.5 1009.625 / 1009.625 MEQ In Sterile Water for Inj 1, 000 ML @ 100 mls/hr IV.CONT . Q10H6M [facility] Rx#:[id number] Cubicin Inj 800 MG In NS Inj 100 / 100 100 ML @ 200 mls/hr IV.SIG Q24H [facility] Rx#:[id number] INVanz Inj 1,000 MG In NS Inj 100 / 100 100 ML @ 200 mls/hr IV.SIG Q24H [facility] Rx#:[id number] Keppra Inj 500 MG In NS Inj 100 105 / 105 105 / 105 ML @ 400 mls/hr IV.SIG Q12H [facility] Rx#:[id number] Oral 700 / 700 Tube Feeding 341 / 341 320 / 320 Water Bolus Amount 500 / 500 Output: Urine 800 / 800 Urine Amount (Catheter) 3450 / 3450 2425 / 2425 Indwelling Urethral Catheter 3450 / 3450 2425 / 2425 Wound Drainage 0 / 0 # 1 Left Knee Hemovac 0 / 0 Other: Date of Last Bowel Movement 06/16/18 06/16/18 # Bowel Movements 0 # Incontinent Bowel Movements 1 Narrative: no change obtunded - Urinary Catheter Management Indwelling Urethral Catheter Cath placed during this visit: yes, but has since been removed by the nurse Urethral indwelling: Yes Reason for continuing: Hourly intake/output Insertion date: 06/15/18 Insertion time: 15:00 Removal date: 06/15/18 Removal time: 14:55 Objective Laboratory Results - last 24 hr 06/14/18 06/16/18 06/16/18 16:10 05:53 11:34 WBC RBC Hgb Hct MCV MCH MCHC RDW Plt Count MPV Neut % (Auto) Lymph % (Auto) [place] % (Auto) Eos % (Auto) Baso % (Auto) Neut # (Auto) Lymph # (Auto) [place] # (Auto) Eos # (Auto) Baso # (Auto) WBC Differential Differential Comment Sodium Potassium Chloride Carbon Dioxide Anion Gap BUN Creatinine Estimated GFR POC Glucose 158 H Random Glucose Calcium Troponin I Triglycerides 118 Cholesterol 82 L LDL Cholesterol, Calc 37 HDL Cholesterol 21.5 L Cholesterol/HDL Ratio 3.81 Vitamin B12 TSH Thyroxine (T4) Urine Color Yellow Urine Clarity Hazy H Urine pH 5.0 Ur Specific [place] 1.013 Urine Protein 30 H Urine Glucose (UA) Negative Urine Ketones Negative Urine Occult Blood Moderate H Urine Nitrate Negative Urine Bilirubin Negative Urine Urobilinogen Less than 2 Ur Leukocyte Esterase Moderate H Urine RBC 24 H Urine WBC 54 H Ur Squamous Epith Cells <1 Urine Bacteria Few H Hyaline Casts 1 Urine Mucus Few H Urine Yeast Moderate H Ur Yeast w Hyphae Occasional H Micro UA Comment Culture indicated Urine Culture Comments Culture indicated 06/16/18 06/16/18 06/16/18 12:13 15:55 20:46 WBC RBC Hgb Hct MCV MCH MCHC RDW Plt Count MPV Neut % (Auto) Lymph % (Auto) [place] % (Auto) Eos % (Auto) Baso % (Auto) Neut # (Auto) Lymph # (Auto) [place] # (Auto) Eos # (Auto) Baso # (Auto) WBC Differential Differential Comment Sodium Potassium Chloride Carbon Dioxide Anion Gap BUN Creatinine Estimated GFR POC Glucose 136 H 155 H Random Glucose Calcium Troponin I 0.03 Triglycerides Cholesterol LDL Cholesterol, Calc HDL Cholesterol Cholesterol/HDL Ratio Vitamin B12 706 TSH 1.480 Thyroxine (T4) 2.1 L Urine Color Urine Clarity Urine pH Ur Specific [place] Urine Protein Urine Glucose (UA) Urine Ketones Urine Occult Blood Urine Nitrate Urine Bilirubin Urine Urobilinogen Ur Leukocyte Esterase Urine RBC Urine WBC Ur Squamous Epith Cells Urine Bacteria Hyaline Casts Urine Mucus Urine Yeast Ur Yeast w Hyphae Micro UA Comment Urine Culture Comments 06/16/18 06/17/18 06/17/18 23:54 03:55 03:55 WBC 9.3 RBC 2.81 L Hgb 8.4 L Hct 25.0 L MCV 89.0 MCH 30.1 MCHC 33.8 RDW 15.9 Plt Count 325 MPV 8.5 Neut % (Auto) 76.5 H Lymph % (Auto) 13.8 [place] % (Auto) 7.3 Eos % (Auto) 1.7 Baso % (Auto) 0.7 Neut # (Auto) 7.1 Lymph # (Auto) 1.3 [place] # (Auto) 0.7 Eos # (Auto) 0.2 Baso # (Auto) 0.1 WBC Differential . Differential Comment Auto diff final Sodium 149 H Potassium 4.5 Chloride 119 H Carbon Dioxide 21.7 Anion Gap 8 BUN 78 H Creatinine 2.57 H Estimated GFR 25 L POC Glucose 179 H Random Glucose 145 H Calcium 8.6 Troponin I Triglycerides Cholesterol LDL Cholesterol, Calc HDL Cholesterol Cholesterol/HDL Ratio Vitamin B12 TSH Thyroxine (T4) Urine Color Urine Clarity Urine pH Ur Specific [place] Urine Protein Urine Glucose (UA) Urine Ketones Urine Occult Blood Urine Nitrate Urine Bilirubin Urine Urobilinogen Ur Leukocyte Esterase Urine RBC Urine WBC Ur Squamous Epith Cells Urine Bacteria Hyaline Casts Urine Mucus Urine Yeast Ur Yeast w Hyphae Micro UA Comment Urine Culture Comments 06/17/18 06/17/18 04:47 07:37 WBC RBC Hgb Hct MCV MCH MCHC RDW Plt Count MPV Neut % (Auto) Lymph % (Auto) [place] % (Auto) Eos % (Auto) Baso % (Auto) Neut # (Auto) Lymph # (Auto) [place] # (Auto) Eos # (Auto) Baso # (Auto) WBC Differential Differential Comment Sodium Potassium Chloride Carbon Dioxide Anion Gap BUN Creatinine Estimated GFR POC Glucose 149 H 155 H Random Glucose Calcium Troponin I Triglycerides Cholesterol LDL Cholesterol, Calc HDL Cholesterol Cholesterol/HDL Ratio Vitamin B12 TSH Thyroxine (T4) Urine Color Urine Clarity Urine pH Ur Specific [place] Urine Protein Urine Glucose (UA) Urine Ketones Urine Occult Blood Urine Nitrate Urine Bilirubin Urine Urobilinogen Ur Leukocyte Esterase Urine RBC Urine WBC Ur Squamous Epith Cells Urine Bacteria Hyaline Casts Urine Mucus Urine Yeast Ur Yeast w Hyphae Micro UA Comment Urine Culture Comments Microbiology 06/15/18 13:50 Aerobic Blood Culture - Preliminary Blood - Peripheral gram positive cocci Anaerobic Blood Culture - Preliminary No growth in 1 day 06/14/18 16:10 Urine Culture - Final Clean Catch Urine Lavinia tropicalis 06/15/18 16:55 Urine Culture - Preliminary Catheterized Urine Yeast species 06/13/18 19:00 Aerobic Blood Culture - Final Blood - Peripheral S. aureus MRSA Anaerobic Blood Culture - Preliminary No growth in 3 days 06/13/18 18:50 Aerobic Blood Culture - Preliminary Blood - Peripheral gram positive cocci Anaerobic Blood Culture - Preliminary No growth in 3 days 06/11/18 07:41 Aerobic Blood Culture - Final Blood - Peripheral S. aureus MRSA Anaerobic Blood Culture - Final No growth in 5 days 06/14/18 16:10 Gram Stain - Final Sputum - Endotracheal Sputum Culture - Final Moderate growth normal respiratory sepideh Review/Management - Review/Management Plan: imp mult small cva suspect endocarditis if any afib found should anticoag will observe eeg neg b12 and trop nl
[2018-06-17] MEDS: Famotidine PF Inj 20 MG/2 ML Vial IV.PUSH SCH ×2 (08:13→20:54)
[2018-06-17] MEDS: Senna/Docusate Sodium 8.6/50 MG Tablet PO SCH ×2 (08:13→20:55)
--- NOTE | 2018-06-17 08:53 | P.PNCC ---
Subjective Subjective Remarks/Hospital Course: 06/03: Patient is a 68-year-old male with past medical history significant for type 2 diabetes, hypertension, morbid obesity who presented to the [facility] emergency department with weakness and slurred speech. Symptoms present for 2 days, apparently he was found on the floor of his mobile home. He was noted to have high fever at the [facility] his WBC count was 21.3 UA was positive. His sodium was 134 BUN 50 with a creatinine of 2.33 bicarb was 16 lactic acid was 6.8. CPK more than 3000 at the outside hospital. A CT of the head showed focal hemorrhage into the right quadrigeminal plate cistern. Dr. Hopkins was contacted who accepted the patient and requested admission to critical care. Patient was accepted to [facility] at [employer] Dr. Deluca evaluated the patient in the [facility], he is lying in the bed. Slightly tachypneic moderate distress. Patient is oriented to place and person. CT of the head repeated here at [place] showed hemorrhage along the posterior aspect of the brainstem measuring up to 2.8 cm in maximal diameter. Mild mass effect on the brainstem. No hydrocephalus. I have started the patient on Cardene infusion for tight blood pressure control. Zosyn for UTI. 2% saline will be started to keep sodium above 150. Avoid mannitol due to renal failure. Keppra for seizure prophylaxis. I am unable to find coags but platelet count was normal. 06/04: MRSA bacteremia ob blood cultures drawn on admission. Currently on precedex, on room air. Awake, follows commands, speech, unintelligible. Started on IV vanc. ID consulted as concern for septic emboli/ endocarditis as cause for brainstem bleed. 06/05: 48 hours following a mid brain spontaneous hemorrhage complicated by numerous MRSA blood cultures. Blood pressure acceptably well controlled. Fever pattern persists. Patient tolerating extubation and protecting airway adequately. Taper completely off Precedex. Serum osmolality acceptably concentrated. 06/06: Serum osmolality acceptable, will allow sodium to drift back into the lower 150s now. Patient is alert and interactive. He moves 4 limbs spontaneously. Episodic fevers to 102+. We will continue with infectious disease workup for source of bacteremia. Endocarditis remains high on the list of possibilities. 06/07: Awake, alert, following commands. Speech very slurred however responds appropriately. Slight disorientation. Thought he was in [place]. Knows he is in the hospital. Complains of back pain. 06/08: Drowsy, arousable, tachypneic. Sodium up to 163, started on D5W and free water. Creatinine up. Tolerating tube feeds. Awaiting MRI. Will need LAURIE. Will need intubation probably for airway and in order to transport for MRI and LAURIE. 06/09: Patient intubated and placed on mechanical ventilation on 06/09. Dr. Hopkins has cleared patient for LAURIE/anticoagulation/valve surgery if needed. We are awaiting LAURIE for further evaluation of MRSA bacteremia by cardiology to determine source. Orthopedics evaluating left knee synovitis/effusion/meniscal tear. 06/10: Underwent aspiration of the left knee yesterday which is growing MRSA. Remains sedated, orally intubated on mechanical ventilation. Underwent LAURIE today which did not reveal any vegetation. Being followed by orthopedics/ID/ neurosurgery. 06/11: Remains orally intubated on mechanical ventilation. Scheduled for OR for left knee septic arthritis with Dr. Carlson. 06/12: Remains orally intubated on mechanical ventilation. Waiting for OR for left knee septic arthritis with Dr. Carlson 06/13: Remains intubated sedated. On sedation hold localizes to pain. Status post left knee lateral arthrotomy with irrigation and debridement. Fluid culture growing MRSA 06/14: Remains intubated sedated. On sedation hold now not waking up or following commands weakly withdraws extremities. WBC count increasing. Sodium coming down with hypotonic saline. 06/15: All sedation now held more than 36 hours. No significant improvement in mentation. Spontaneously moving upper extremity withdraws lowers to pain. CT of the head yesterday essentially unchanged with resolution of previously seen subarachnoid hemorrhage in the basal cisterns 06/16: Failed CPAP after 20 minutes this morning due to erratic and rapid respiratory effort. Opens eyes with movement but does not focus or track. 06/17: We will need to discuss tracheostomy with his son this morning. No improvement in neurologic function overnight. Continues to fail efforts at spontaneous breathing trials. Hypokalemia needs gingerly replacement this morning. Objective Vital Signs / I&O: Vital Signs 06/16/18 09:00 06/16/18 09:15 06/16/18 09:30 Temperature 100.4 F H 100.4 F H 100.8 F H Pulse Rate 87 81 77 Respiratory Rate Blood Pressure 167/81 H 137/66 160/64 H Pulse Oximetry 100 100 100 06/16/18 09:45 06/16/18 10:00 06/16/18 10:15 Temperature 100.8 F H 100.9 F H 100.9 F H Pulse Rate 66 68 68 Respiratory Rate Blood Pressure 156/71 H 133/61 134/55 L Pulse Oximetry 100 100 100 06/16/18 10:30 06/16/18 10:45 06/16/18 11:00 Temperature 100.8 F H 100.6 F H 100.4 F H Pulse Rate 67 64 90 Respiratory Rate Blood Pressure 124/60 130/61 Pulse Oximetry 100 100 100 06/16/18 11:13 06/16/18 12:00 06/16/18 12:18 Temperature 100.0 F H 99.9 F H Pulse Rate 70 64 Respiratory Rate 15 Blood Pressure 113/56 L 117/59 L Pulse Oximetry 100 100 100 06/16/18 12:49 06/16/18 13:00 06/16/18 13:49 Temperature 99.7 F H 99.7 F H 99.9 F H Pulse Rate 64 66 69 Respiratory Rate Blood Pressure 123/58 L 130/62 Pulse Oximetry 100 100 100 06/16/18 14:00 06/16/18 14:49 06/16/18 15:00 Temperature 99.9 F H 99.9 F H 99.9 F H Pulse Rate 70 68 80 Respiratory Rate Blood Pressure 132/62 Pulse Oximetry 100 100 100 06/16/18 15:49 06/16/18 16:00 06/16/18 16:49 Temperature 99.7 F H 99.9 F H 100.0 F H Pulse Rate 65 82 65 Respiratory Rate 15 Blood Pressure 119/58 L 131/63 Pulse Oximetry 100 100 100 06/16/18 17:00 06/16/18 17:49 06/16/18 18:00 Temperature 100.0 F H 100.0 F H 100.0 F H Pulse Rate 71 69 71 Respiratory Rate Blood Pressure 140/62 Pulse Oximetry 100 100 100 06/16/18 18:49 06/16/18 19:00 06/16/18 19:49 Temperature 100.0 F H 100.0 F H 100.0 F H Pulse Rate 69 84 74 Respiratory Rate Blood Pressure 140/65 125/60 Pulse Oximetry 100 100 100 06/16/18 20:00 06/16/18 20:34 06/16/18 20:49 Temperature 100.2 F H 100.0 F H Pulse Rate 69 81 Respiratory Rate 24 Blood Pressure 139/63 Pulse Oximetry 100 100 100 06/16/18 21:00 06/16/18 21:49 06/16/18 22:00 Temperature 100.0 F H 100.2 F H 100.2 F H Pulse Rate 75 87 87 Respiratory Rate Blood Pressure 149/60 H Pulse Oximetry 100 100 100 06/16/18 22:49 06/16/18 23:00 06/16/18 23:49 Temperature 100.2 F H 100.2 F H 100.4 F H Pulse Rate 90 87 84 Respiratory Rate Blood Pressure 146/66 H 126/58 L Pulse Oximetry 100 100 94 L 06/17/18 00:00 06/17/18 00:49 06/17/18 00:53 Temperature 100.4 F H 100.6 F H Pulse Rate 86 80 Respiratory Rate 25 H Blood Pressure 139/65 Pulse Oximetry 100 100 100 06/17/18 01:00 06/17/18 01:49 06/17/18 02:00 Temperature 100.8 F H 100.8 F H 100.8 F H Pulse Rate 72 88 79 Respiratory Rate Blood Pressure 155/70 H Pulse Oximetry 100 100 100 06/17/18 02:49 06/17/18 03:00 06/17/18 04:00 Temperature 100.8 F H 100.8 F H 100.8 F H Pulse Rate 73 72 83 Respiratory Rate Blood Pressure 139/63 Pulse Oximetry 100 100 100 06/17/18 04:03 06/17/18 04:26 06/17/18 04:49 Temperature 100.9 F H 100.8 F H Pulse Rate 75 90 Respiratory Rate 25 H Blood Pressure 126/59 L 149/67 H Pulse Oximetry 100 100 99 06/17/18 05:00 06/17/18 05:49 06/17/18 06:00 Temperature 100.8 F H 100.6 F H 100.6 F H Pulse Rate 81 77 81 Respiratory Rate 22 20 Blood Pressure 131/62 Pulse Oximetry 100 99 98 06/17/18 07:00 06/17/18 08:16 Temperature 100.2 F H Pulse Rate 85 Respiratory Rate 15 34 H Blood Pressure Pulse Oximetry 100 100 Intake & Output 06/16/18 06/17/18 06/17/18 18:59 06:59 18:59 Intake Total 2355.625 / 2355.625 925 / 925 Output Total 4250 / 4250 2425 / 2425 Balance -1894.375 / -1894.375 -1500 / -1500 Weight 134.2 kg Intake: IV 1314.625 / 1314.625 105 / 105 Sodium Chloride 23.4% Inj 38.5 1009.625 / 1009.625 MEQ In Sterile Water for Inj 1, 000 ML @ 100 mls/hr IV.CONT . Q10H6M JACOB Rx#:[id number] Cubicin Inj 800 MG In NS Inj 100 / 100 100 ML @ 200 mls/hr IV.SIG Q24H JACOB Rx#:[id number] INVanz Inj 1,000 MG In NS Inj 100 / 100 100 ML @ 200 mls/hr IV.SIG Q24H JACOB Rx#:[id number] Keppra Inj 500 MG In NS Inj 100 105 / 105 105 / 105 ML @ 400 mls/hr IV.SIG Q12H JACOB Rx#:[id number] Oral 700 / 700 Tube Feeding 341 / 341 320 / 320 Water Bolus Amount 500 / 500 Output: Urine 800 / 800 Urine Amount (Catheter) 3450 / 3450 2425 / 2425 Indwelling Urethral Catheter 3450 / 3450 2425 / 2425 Wound Drainage 0 / 0 # 1 Left Knee Hemovac 0 / 0 Other: Date of Last Bowel Movement 06/16/18 06/16/18 # Bowel Movements 0 # Incontinent Bowel Movements 1 Result Diagrams: 06/17/18 03:55 06/17/18 03:55 Objective Remarks: GENERAL: 68-year-old male lying in ICU bed, orally intubated on mechanical ventilation SKIN: Focused skin assessment warm/dry. HEAD: Atraumatic. Normocephalic. EYES: Pupils equal and round. No conjunctival icterus. ENT: No nasal bleeding or discharge. Orotracheal intubation. CARDIOVASCULAR: Normal S1-S2. No murmurs. Regular rate and rhythm. No JVD. RESPIRATORY: Persistent scattered rhonchi, acceptable excursions on mechanical ventilation. GASTROINTESTINAL: Abdomen soft, non-tender, nondistended. BS present. No guarding. MUSCULOSKELETAL: Warm, well perfused. Left knee Hemovac drain in place NEUROLOGICAL: Largely unresponsive, orally intubated, Pupils equal 3mm, reactive. Patient localizes to pain with LUE, slightly withdraws the lower extremities. Opens eyes but does not focus or track. No improvement over the past 24 hours. Assessment and Plan - Problem List (1) 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 Status: Acute (2) Encephalopathy acute Code(s): G93.40 - Encephalopathy, unspecified Status: Acute (3) Acute kidney failure Code(s): N17.9 - Acute kidney failure, unspecified Status: Acute (4) Severe sepsis Code(s): A41.9 - Sepsis, unspecified organism; R65.20 - Severe sepsis without septic shock Status: Acute (5) Metabolic acidemia Code(s): E87.2 - Acidosis Status: Acute (6) UTI (urinary tract infection) Code(s): N39.0 - Urinary tract infection, site not specified Status: Acute (7) Lactic acidosis Code(s): E87.2 - Acidosis Status: Acute (8) Rhabdomyolysis Code(s): M62.82 - Rhabdomyolysis Status: Acute (9) Obesity Code(s): E66.9 - Obesity, unspecified Status: Chronic (10) Hypertension Code(s): I10 - Essential (primary) hypertension Status: Chronic (11) Diabetes Code(s): E11.9 - Type 2 diabetes mellitus without complications Status: Chronic - Assessment and Plan Plan: NEURO: Brainstem hemorrhage measuring up to 2.8 cm in maximal diameter, mild mass effect Metabolic encephalopathy -Repeat CT 06/14: Subarachnoid hemorrhage in the basal cisterns as resolved. -EEG done yesterday 06/14/2018 shows moderate encephalopathy -Neurosurgery Dr. Hopkins -Currently on free water//2 NS for hypernatremia -Close neuro monitoring. Prev MRI/MRA brain results noted -Head CT 06/08 shows resolving brainstem hemorrhage. -Keppra for seizure prophylaxis -Discontinue all sedation DC propofol, Precedex, Fentanyl -With MRSA bacteremia suspect septic emboli with mycotic aneurism vs hypertensive bleed. -MRI spine reviewed, no evidence of epidural abscess -MRI head with numerous small ischemic infarcts, embolic in appearance RESP: Acute respiratory failure on mechanical ventilation Past smoking -DuoNeb every as needed -Continue mechanical ventilation, vent bundle, bronchodilators as needed -Daily CPAP trials. -Mental status will not permit extubation -Intubated on 06/08/2018, vent day 9 patient, will need tracheostomy. CV: Lactic acidemia Hypotension History of hypertension -Initial lactic acid at the outside hospital was 6.8 -Resuscitated with normal saline IV fluids, transthoracic echo -Half NS due to hypernatremia -Cardiology Dr. Odonnell consulted to perform LAURIE to evaluate for endocarditis -LAURIE 06/10-ve for any vegetations. GI: -NG tube in place. Tube feeds and advance to goal as tolerated. : Acute kidney injury Rhabdomyolysis -Monitor renal function closely. Replace Hays catheter due to candiduria, repeat culture -Strict intake output, monitor and replete electrolytes. -Nephrology following for rising creatinine-suspect multifactorial secondary to sepsis/vancomycin/gentamicin toxicity/IV contrast exposure. -Replace electrolyte losses. ID: Severe sepsis ESBL E. coli UTI MRSA bacteremia MRSA left knee septic arthritis -On Cubicin. Cefepime changed to Invanz on 06/10 for ESBL E. coli in urine culture -Status post left knee lateral arthrotomy with irrigation and debridement. Fluid culture growing MRSA -s/p MRI left knee due to swelling -orthopedics performed left knee aspiration on 06/09 with drainage of 60 cc of purulent cloudy fluid which is growing MRSA. -Vancomycin and gentamicin discontinued on 06/08 per ID due to worsening renal function. Blood cultures positive for MRSA (10/07) - ID Dr. Rodriguez -LAURIE negative for vegetation on 06/10 -Ortho following and to decide further management for left knee septic arthritis - HEME: Leukocytosis secondary to sepsis -Monitor CBC, coags ENDO: Type 2 diabetes -Sliding scale insulin -Basal long-acting insulin PROPH: -Bilateral lower extremity SCDs. IV famotidine. Subcutaneous heparin for DVT prophylaxis LINES: -Utilize peripheral IVs, central line if needed Overall impression: Blood pressure control remains problematic and will need additional scheduled medication. Agitation appears better controlled. Bacteremia remains persistent and possibly life-threatening problem. Neurologic status unstable. 06/08: D/W Dr. Hopkins. called patient's son Abraham Bautista at [phone] and updated him regarding current clinical status and plan to intubate and place on mech ventilation due to concern regarding airway protection and in order to safely get imaging and possibly LAURIE and he voiced understanding and was agreeable. Critical care 40 minutes aside from procedures. (1) Brain stem hemorrhage Qualifiers: Intracerebral hemorrhage etiology: nontraumatic
--- NOTE | 2018-06-17 10:24 | P.PNNP ---
Subjective Interval history: Remains on ventilator with no sedation. Mental status is unchanged. Creatinine at 2.57 today, with good urinary output. <Azul Lam - Last Filed: 06/17/18 10:20> Physical Exam Vital signs: Vital Signs 06/16/18 10:30 06/16/18 10:45 06/16/18 11:00 Temperature 100.8 F H 100.6 F H 100.4 F H Pulse Rate 67 64 90 Respiratory Rate Blood Pressure 124/60 130/61 Pulse Oximetry 100 100 100 06/16/18 11:13 06/16/18 12:00 06/16/18 12:18 Temperature 100.0 F H 99.9 F H Pulse Rate 70 64 Respiratory Rate 15 Blood Pressure 113/56 L 117/59 L Pulse Oximetry 100 100 100 06/16/18 12:49 06/16/18 13:00 06/16/18 13:49 Temperature 99.7 F H 99.7 F H 99.9 F H Pulse Rate 64 66 69 Respiratory Rate Blood Pressure 123/58 L 130/62 Pulse Oximetry 100 100 100 06/16/18 14:00 06/16/18 14:49 06/16/18 15:00 Temperature 99.9 F H 99.9 F H 99.9 F H Pulse Rate 70 68 80 Respiratory Rate Blood Pressure 132/62 Pulse Oximetry 100 100 100 06/16/18 15:49 06/16/18 16:00 06/16/18 16:49 Temperature 99.7 F H 99.9 F H 100.0 F H Pulse Rate 65 82 65 Respiratory Rate 15 Blood Pressure 119/58 L 131/63 Pulse Oximetry 100 100 100 06/16/18 17:00 06/16/18 17:49 06/16/18 18:00 Temperature 100.0 F H 100.0 F H 100.0 F H Pulse Rate 71 69 71 Respiratory Rate Blood Pressure 140/62 Pulse Oximetry 100 100 100 06/16/18 18:49 06/16/18 19:00 06/16/18 19:49 Temperature 100.0 F H 100.0 F H 100.0 F H Pulse Rate 69 84 74 Respiratory Rate Blood Pressure 140/65 125/60 Pulse Oximetry 100 100 100 06/16/18 20:00 06/16/18 20:34 06/16/18 20:49 Temperature 100.2 F H 100.0 F H Pulse Rate 69 81 Respiratory Rate 24 Blood Pressure 139/63 Pulse Oximetry 100 100 100 06/16/18 21:00 06/16/18 21:49 06/16/18 22:00 Temperature 100.0 F H 100.2 F H 100.2 F H Pulse Rate 75 87 87 Respiratory Rate Blood Pressure 149/60 H Pulse Oximetry 100 100 100 06/16/18 22:49 06/16/18 23:00 06/16/18 23:49 Temperature 100.2 F H 100.2 F H 100.4 F H Pulse Rate 90 87 84 Respiratory Rate Blood Pressure 146/66 H 126/58 L Pulse Oximetry 100 100 94 L 06/17/18 00:00 06/17/18 00:49 06/17/18 00:53 Temperature 100.4 F H 100.6 F H Pulse Rate 86 80 Respiratory Rate 25 H Blood Pressure 139/65 Pulse Oximetry 100 100 100 06/17/18 01:00 06/17/18 01:49 06/17/18 02:00 Temperature 100.8 F H 100.8 F H 100.8 F H Pulse Rate 72 88 79 Respiratory Rate Blood Pressure 155/70 H Pulse Oximetry 100 100 100 06/17/18 02:49 06/17/18 03:00 06/17/18 04:00 Temperature 100.8 F H 100.8 F H 100.8 F H Pulse Rate 73 72 83 Respiratory Rate Blood Pressure 139/63 Pulse Oximetry 100 100 100 06/17/18 04:03 06/17/18 04:26 06/17/18 04:49 Temperature 100.9 F H 100.8 F H Pulse Rate 75 90 Respiratory Rate 25 H Blood Pressure 126/59 L 149/67 H Pulse Oximetry 100 100 99 06/17/18 05:00 06/17/18 05:49 06/17/18 06:00 Temperature 100.8 F H 100.6 F H 100.6 F H Pulse Rate 81 77 81 Respiratory Rate 22 20 Blood Pressure 131/62 Pulse Oximetry 100 99 98 06/17/18 07:00 06/17/18 07:49 06/17/18 08:00 Temperature 100.2 F H 100.2 F H 100.2 F H Pulse Rate 85 88 88 Respiratory Rate 15 Blood Pressure 150/70 H Pulse Oximetry 100 100 100 06/17/18 08:16 06/17/18 08:49 06/17/18 09:00 Temperature 99.7 F H 99.5 F Pulse Rate 92 H 93 H Respiratory Rate 34 H Blood Pressure 155/73 H Pulse Oximetry 100 98 100 06/17/18 09:49 06/17/18 10:00 Temperature 99.3 F 99.3 F Pulse Rate 89 88 Respiratory Rate Blood Pressure 147/69 H Pulse Oximetry 100 100 Intake & Output 06/16/18 06/17/18 06/17/18 18:59 06:59 18:59 Intake Total 2355.625 / 2355.625 925 / 925 Output Total 4250 / 4250 2425 / 2425 Balance -1894.375 / -1894.375 -1500 / -1500 Weight 134.2 kg Intake: IV 1314.625 / 1314.625 105 / 105 Sodium Chloride 23.4% Inj 38.5 1009.625 / 1009.625 MEQ In Sterile Water for Inj 1, 000 ML @ 100 mls/hr IV.CONT . Q10H6M JACOB Rx#:[id number] Cubicin Inj 800 MG In NS Inj 100 / 100 100 ML @ 200 mls/hr IV.SIG Q24H JACOB Rx#:[id number] INVanz Inj 1,000 MG In NS Inj 100 / 100 100 ML @ 200 mls/hr IV.SIG Q24H JACOB Rx#:[id number] Keppra Inj 500 MG In NS Inj 100 105 / 105 105 / 105 ML @ 400 mls/hr IV.SIG Q12H JACOB Rx#:[id number] Oral 700 / 700 Tube Feeding 341 / 341 320 / 320 Water Bolus Amount 500 / 500 Output: Urine 800 / 800 Urine Amount (Catheter) 3450 / 3450 2425 / 2425 Indwelling Urethral Catheter 3450 / 3450 2425 / 2425 Wound Drainage 0 / 0 # 1 Left Knee Hemovac 0 / 0 Other: Date of Last Bowel Movement 06/16/18 06/16/18 06/16/18 # Bowel Movements 0 # Incontinent Bowel Movements 1 Narrative: GENERAL: Intubated. Does not open eyes, withdrawals to lower extremity stimulation. SKIN: Warm and dry. NECK: Supple, trachea midline. No JVD. CARDIOVASCULAR: Regular rate and rhythm without murmurs, gallops, or rubs. RESPIRATORY: Breath sounds equal bilaterally. No accessory muscle use. Orally intubated. GASTROINTESTINAL: Abdomen soft, non-tender, nondistended. Dobhoff tube in right nare GENITOURINARY: Indwelling Hays catheter. MUSCULOSKELETAL: No cyanosis, Bilateral weeping edema in upper extremities. TUAN left knee - Urinary Catheter Management Indwelling Urethral Catheter Cath placed during this visit: yes, but has since been removed by the nurse Urethral indwelling: Yes Reason for continuing: Hourly intake/output Insertion date: 06/15/18 Insertion time: 15:00 Removal date: 06/15/18 Removal time: 14:55 <Azul Lam - Last Filed: 06/17/18 10:20> Vital signs: Vital Signs 06/16/18 21:49 06/16/18 22:00 06/16/18 22:49 Temperature 100.2 F H 100.2 F H 100.2 F H Pulse Rate 87 87 90 Respiratory Rate Blood Pressure 149/60 H 146/66 H Pulse Oximetry 100 100 100 06/16/18 23:00 06/16/18 23:49 06/17/18 00:00 Temperature 100.2 F H 100.4 F H 100.4 F H Pulse Rate 87 84 86 Respiratory Rate Blood Pressure 126/58 L Pulse Oximetry 100 94 L 100 06/17/18 00:49 06/17/18 00:53 06/17/18 01:00 Temperature 100.6 F H 100.8 F H Pulse Rate 80 72 Respiratory Rate 25 H Blood Pressure 139/65 Pulse Oximetry 100 100 100 06/17/18 01:49 06/17/18 02:00 06/17/18 02:49 Temperature 100.8 F H 100.8 F H 100.8 F H Pulse Rate 88 79 73 Respiratory Rate Blood Pressure 155/70 H 139/63 Pulse Oximetry 100 100 100 06/17/18 03:00 06/17/18 04:00 06/17/18 04:03 Temperature 100.8 F H 100.8 F H Pulse Rate 72 83 Respiratory Rate 25 H Blood Pressure Pulse Oximetry 100 100 100 06/17/18 04:26 06/17/18 04:49 06/17/18 05:00 Temperature 100.9 F H 100.8 F H 100.8 F H Pulse Rate 75 90 81 Respiratory Rate 22 Blood Pressure 126/59 L 149/67 H Pulse Oximetry 100 99 100 06/17/18 05:49 06/17/18 06:00 06/17/18 07:00 Temperature 100.6 F H 100.6 F H 100.2 F H Pulse Rate 77 81 85 Respiratory Rate 20 15 Blood Pressure 131/62 Pulse Oximetry 99 98 100 06/17/18 07:49 06/17/18 08:00 06/17/18 08:16 Temperature 100.2 F H 100.2 F H Pulse Rate 88 88 Respiratory Rate 34 H Blood Pressure 150/70 H Pulse Oximetry 100 100 100 06/17/18 08:49 06/17/18 09:00 06/17/18 09:49 Temperature 99.7 F H 99.5 F 99.3 F Pulse Rate 92 H 93 H 89 Respiratory Rate Blood Pressure 155/73 H 147/69 H Pulse Oximetry 98 100 100 06/17/18 10:00 06/17/18 10:49 06/17/18 11:00 Temperature 99.3 F 99.5 F 99.7 F H Pulse Rate 88 76 69 Respiratory Rate Blood Pressure 123/58 L Pulse Oximetry 100 100 100 06/17/18 11:49 06/17/18 12:00 06/17/18 12:28 Temperature 99.5 F 99.5 F Pulse Rate 78 76 Respiratory Rate 33 H Blood Pressure 143/65 H Pulse Oximetry 100 100 100 06/17/18 12:49 06/17/18 13:00 06/17/18 13:49 Temperature 99.7 F H 99.7 F H 99.7 F H Pulse Rate 75 88 86 Respiratory Rate Blood Pressure 124/59 L 122/57 L Pulse Oximetry 95 100 100 06/17/18 14:00 06/17/18 14:49 06/17/18 15:00 Temperature 99.7 F H 99.1 F 99.1 F Pulse Rate 82 79 79 Respiratory Rate Blood Pressure 118/59 L Pulse Oximetry 100 100 100 06/17/18 15:49 06/17/18 15:50 06/17/18 16:00 Temperature 98.8 F 98.8 F Pulse Rate 76 90 80 Respiratory Rate Blood Pressure 132/101 H 133/93 H Pulse Oximetry 100 100 100 06/17/18 16:35 06/17/18 17:00 06/17/18 17:17 Temperature 99.1 F Pulse Rate 72 Respiratory Rate 26 H Blood Pressure Pulse Oximetry 99 100 100 06/17/18 18:00 06/17/18 19:49 Temperature 99.3 F Pulse Rate 91 H Respiratory Rate 15 28 H Blood Pressure Pulse Oximetry 100 100 Intake & Output 06/17/18 06/17/18 06/18/18 06:59 18:59 06:59 Intake Total 925 / 925 700 / 700 Output Total 2425 / 2425 2950 / 2950 Balance -1500 / -1500 -2250 / -2250 Weight 134.2 kg Intake: IV 105 / 105 405 / 405 Teflaro Inj 300 MG In NS Inj 100 / 100 100 ML @ 100 mls/hr IV.SIG Q12H JACOB Rx#:[id number] Cubicin Inj 800 MG In NS Inj 100 / 100 100 ML @ 200 mls/hr IV.SIG Q24H JACOB Rx#:[id number] INVanz Inj 1,000 MG In NS Inj 100 / 100 100 ML @ 200 mls/hr IV.SIG Q24H JACOB Rx#:[id number] Keppra Inj 500 MG In NS Inj 100 105 / 105 105 / 105 ML @ 400 mls/hr IV.SIG Q12H JACOB Rx#:[id number] Tube Feeding 320 / 320 295 / 295 Water Bolus Amount 500 / 500 Output: Urine Amount (Catheter) 2425 / 2425 2950 / 2950 Indwelling Urethral Catheter 2425 / 2425 2950 / 2950 Other: Date of Last Bowel Movement 06/16/18 06/17/18 # Bowel Movements 0 # Incontinent Bowel Movements 1 - Urinary Catheter Management Indwelling Urethral Catheter Cath placed during this visit: no <Aurelia Powell - Last Filed: 06/17/18 21:17> Assessment and Plan - Assessment (1) Acute kidney failure Code(s): N17.9 - Acute kidney failure, unspecified Status: Acute Plan: Acute kidney injury with creatinine of 3.50. HCO3 at 20.6. Non oliguric. On day of consult On admission creatinine was noted to be 1.[address] on abdomen with no acute findings. Bilateral renal cysts noted. Patient may have some chronic kidney disease but baseline creatinine is not known. Proteinuria noted in urine. Creatinine started to increase on the 4th at 2.86. NIKKI with FeNA at 2.35 suggestive of ATN possibly from sepsis or contrast nephropathy. AIN in differential also with vancomycin/gentamicin levels elevated on the 4th. Creatinine is stable slightly increased at 2.57, good urinary output Will continue Lasix BID as patient has bilateral weeping upper extremity edema. May need to decrease lasix for creatinine continues to rise Maintain strict I+O, Has indwelling Hays catheter. Avoid nephrotoxins as possible. Will follow urinary output and labs. <Azul Lam - Last Filed: 06/17/18 10:20> - Assessment (1) Acute kidney failure Code(s): N17.9 - Acute kidney failure, unspecified Status: Acute Plan: Patient seen and examined, agree with above. Slight increase in the Creatinine, if continue to get worse, will decrease diuretics. <Aurelia Powell - Last Filed: 06/17/18 21:17>
[2018-06-17] MEDS: DAPTOmycin Inj 800 MG in Sodium Chlor 0.9% Inj 100 ML IV.SIG SCH (12:15)
--- NOTE | 2018-06-17 13:20 | P.PNID ---
Subjective Remarks: Patient is a 68-year-old male, brought into the hospital initially at [facility] for evaluation of weakness and slurred speech. It apparently has been present for several days. He was found on the floor of his mobile home. At [facility] he was found to be febrile, WBC up to 21,000, urinalysis with pyuria, creatinine 2.33, and lactic acid was elevated. CT of the head showed focal hemorrhage in the posterior fossa. Patient was transferred to [facility] for neurosurgical evaluation. Patient since admission has had elevated temperature. His blood cultures done on admission are now reported as growing gram-positive cocci, MRSA. His urine culture is also growing MRSA. On evaluation in the intensive care unit, he is awake, and interactive. He looks slightly tachypneic at rest and and on nasal O2. He has some confusion but mostly his oriented. His chest x-ray is normal. Echo is showing calcification in the aortic valve. No vegetations seen. Infectious disease consultation has been requested to assist with evaluation and treatment of patient with MRSA bacteremia. Notes reviewed D/W RN Temps better BP ok On the vent Did not tolerate CPAP yesterday More (+) BC today Had I and D L knee 06/12 LAURIE no vegetation seen No rash No diarrhea MRI spine ok CT A/P no abscess Antibiotics: Cubicin Invanz Lines: PIV Past Medical History: Diabetes History of MRSA infection Onset Date: ~06/03/18 Hypertension Obesity UTI (urinary tract infection) Allergies/Adverse Reactions: Allergies No Known Allergies Allergy (Verified 06/03/18 01:32) Objective Vital Signs 06/16/18 13:49 06/16/18 14:00 06/16/18 14:49 Temperature 99.9 F H 99.9 F H 99.9 F H Pulse Rate 69 70 68 Respiratory Rate Blood Pressure 130/62 132/62 Pulse Oximetry 100 100 100 06/16/18 15:00 06/16/18 15:49 06/16/18 16:00 Temperature 99.9 F H 99.7 F H 99.9 F H Pulse Rate 80 65 82 Respiratory Rate Blood Pressure 119/58 L Pulse Oximetry 100 100 100 06/16/18 16:49 06/16/18 17:00 06/16/18 17:49 Temperature 100.0 F H 100.0 F H 100.0 F H Pulse Rate 65 71 69 Respiratory Rate 15 Blood Pressure 131/63 140/62 Pulse Oximetry 100 100 100 06/16/18 18:00 06/16/18 18:49 06/16/18 19:00 Temperature 100.0 F H 100.0 F H 100.0 F H Pulse Rate 71 69 84 Respiratory Rate Blood Pressure 140/65 Pulse Oximetry 100 100 100 06/16/18 19:49 06/16/18 20:00 06/16/18 20:34 Temperature 100.0 F H 100.2 F H Pulse Rate 74 69 Respiratory Rate 24 Blood Pressure 125/60 Pulse Oximetry 100 100 100 06/16/18 20:49 06/16/18 21:00 06/16/18 21:49 Temperature 100.0 F H 100.0 F H 100.2 F H Pulse Rate 81 75 87 Respiratory Rate Blood Pressure 139/63 149/60 H Pulse Oximetry 100 100 100 06/16/18 22:00 06/16/18 22:49 06/16/18 23:00 Temperature 100.2 F H 100.2 F H 100.2 F H Pulse Rate 87 90 87 Respiratory Rate Blood Pressure 146/66 H Pulse Oximetry 100 100 100 06/16/18 23:49 06/17/18 00:00 06/17/18 00:49 Temperature 100.4 F H 100.4 F H 100.6 F H Pulse Rate 84 86 80 Respiratory Rate Blood Pressure 126/58 L 139/65 Pulse Oximetry 94 L 100 100 06/17/18 00:53 06/17/18 01:00 06/17/18 01:49 Temperature 100.8 F H 100.8 F H Pulse Rate 72 88 Respiratory Rate 25 H Blood Pressure 155/70 H Pulse Oximetry 100 100 100 06/17/18 02:00 06/17/18 02:49 06/17/18 03:00 Temperature 100.8 F H 100.8 F H 100.8 F H Pulse Rate 79 73 72 Respiratory Rate Blood Pressure 139/63 Pulse Oximetry 100 100 100 06/17/18 04:00 06/17/18 04:03 06/17/18 04:26 Temperature 100.8 F H 100.9 F H Pulse Rate 83 75 Respiratory Rate 25 H Blood Pressure 126/59 L Pulse Oximetry 100 100 100 06/17/18 04:49 06/17/18 05:00 06/17/18 05:49 Temperature 100.8 F H 100.8 F H 100.6 F H Pulse Rate 90 81 77 Respiratory Rate 22 Blood Pressure 149/67 H 131/62 Pulse Oximetry 99 100 99 06/17/18 06:00 06/17/18 07:00 06/17/18 07:49 Temperature 100.6 F H 100.2 F H 100.2 F H Pulse Rate 81 85 88 Respiratory Rate 20 15 Blood Pressure 150/70 H Pulse Oximetry 98 100 100 06/17/18 08:00 06/17/18 08:16 06/17/18 08:49 Temperature 100.2 F H 99.7 F H Pulse Rate 88 92 H Respiratory Rate 34 H Blood Pressure 155/73 H Pulse Oximetry 100 100 98 06/17/18 09:00 06/17/18 09:49 06/17/18 10:00 Temperature 99.5 F 99.3 F 99.3 F Pulse Rate 93 H 89 88 Respiratory Rate Blood Pressure 147/69 H Pulse Oximetry 100 100 100 06/17/18 10:49 06/17/18 11:00 06/17/18 11:49 Temperature 99.5 F 99.7 F H 99.5 F Pulse Rate 76 69 78 Respiratory Rate Blood Pressure 123/58 L 143/65 H Pulse Oximetry 100 100 100 06/17/18 12:00 06/17/18 12:28 Temperature 99.5 F Pulse Rate 76 Respiratory Rate 33 H Blood Pressure Pulse Oximetry 100 100 Intake & Output 06/16/18 06/17/18 06/17/18 18:59 06:59 18:59 Intake Total 2355.625 / 2355.625 925 / 925 Output Total 4250 / 4250 2425 / 2425 Balance -1894.375 / -1894.375 -1500 / -1500 Weight 134.2 kg Intake: IV 1314.625 / 1314.625 105 / 105 Sodium Chloride 23.4% Inj 38.5 1009.625 / 1009.625 MEQ In Sterile Water for Inj 1, 000 ML @ 100 mls/hr IV.CONT . Q10H6M [facility] Rx#:[id number] Cubicin Inj 800 MG In NS Inj 100 / 100 100 ML @ 200 mls/hr IV.SIG Q24H [facility] Rx#:[id number] INVanz Inj 1,000 MG In NS Inj 100 / 100 100 ML @ 200 mls/hr IV.SIG Q24H [facility] Rx#:[id number] Keppra Inj 500 MG In NS Inj 100 105 / 105 105 / 105 ML @ 400 mls/hr IV.SIG Q12H [facility] Rx#:[id number] Oral 700 / 700 Tube Feeding 341 / 341 320 / 320 Water Bolus Amount 500 / 500 Output: Urine 800 / 800 Urine Amount (Catheter) 3450 / 3450 2425 / 2425 Indwelling Urethral Catheter 3450 / 3450 2425 / 2425 Wound Drainage 0 / 0 # 1 Left Knee Hemovac 0 / 0 Other: Date of Last Bowel Movement 06/16/18 06/16/18 06/16/18 # Bowel Movements 0 # Incontinent Bowel Movements 1 06/16/18 05:53 Blood - Peripheral Aerobic Blood Culture - Preliminary gram positive cocci 06/16/18 05:53 Blood - Peripheral Anaerobic Blood Culture - Preliminary No growth in 1 day 06/15/18 13:50 Blood - Peripheral Aerobic Blood Culture - Preliminary gram positive cocci 06/15/18 13:50 Blood - Peripheral Anaerobic Blood Culture - Preliminary No growth in 2 days 06/13/18 18:50 Blood - Peripheral Aerobic Blood Culture - Final S. aureus MRSA 06/13/18 18:50 Blood - Peripheral Anaerobic Blood Culture - Preliminary No growth in 4 days 06/13/18 19:00 Blood - Peripheral Aerobic Blood Culture - Final S. aureus MRSA 06/13/18 19:00 Blood - Peripheral Anaerobic Blood Culture - Preliminary No growth in 4 days 06/15/18 16:55 Catheterized Urine Urine Culture - Final Lavinia tropicalis 06/14/18 16:10 Clean Catch Urine Urine Culture - Final Lavinia tropicalis 06/11/18 07:41 Blood - Peripheral Aerobic Blood Culture - Final S. aureus MRSA 06/11/18 07:41 Blood - Peripheral Anaerobic Blood Culture - Final No growth in 5 days 06/14/18 16:10 Sputum - Endotracheal Gram Stain - Final 06/14/18 16:10 Sputum - Endotracheal Sputum Culture - Final Moderate growth normal respiratory sepideh 06/10/18 06:20 Blood - Peripheral Aerobic Blood Culture - Final S. aureus MRSA 06/10/18 06:20 Blood - Peripheral Anaerobic Blood Culture - Final No growth in 5 days 06/12/18 13:09 Tissue - Knee Gram Stain - Final 06/12/18 13:09 Tissue - Knee Wound Culture - Final S. aureus MRSA 06/12/18 13:10 Other Acid Fast Bacilli Smear - Final No acid fast bacilli seen 06/12/18 13:10 Other Mycobacterial Culture - Pending 06/12/18 13:09 Tissue - Knee Acid Fast Bacilli Smear - Final No acid fast bacilli seen 06/12/18 13:09 Tissue - Knee Mycobacterial Culture - Pending 06/12/18 13:10 Tissue - Knee Gram Stain - Final 06/12/18 13:10 Tissue - Knee Wound Culture - Final S. aureus MRSA Lab - Hematology Results 06/17/18 03:55 WBC 9.3 RBC 2.81 L Hgb 8.4 L Hct 25.0 L MCV 89.0 MCH 30.1 MCHC 33.8 RDW 15.9 Plt Count 325 MPV 8.5 Neut % (Auto) 76.5 H Lymph % (Auto) 13.8 Williamson % (Auto) 7.3 Eos % (Auto) 1.7 Baso % (Auto) 0.7 Neut # (Auto) 7.1 Lymph # (Auto) 1.3 Williamson # (Auto) 0.7 Eos # (Auto) 0.2 Baso # (Auto) 0.1 WBC Differential . Differential Comment Auto diff final Lab - Chemistry Results 06/15/18 06/15/18 06/15/18 18:19 19:50 23:34 Sodium Potassium Chloride Carbon Dioxide Anion Gap BUN Creatinine Estimated GFR POC Glucose 129 H 143 H 149 H Random Glucose Calcium Troponin I Triglycerides Cholesterol LDL Cholesterol, Calc HDL Cholesterol Cholesterol/HDL Ratio Vitamin B12 TSH Thyroxine (T4) 06/16/18 06/16/18 06/16/18 04:11 05:53 05:53 Sodium 150 H Potassium 4.5 Chloride 121 H Carbon Dioxide 20.1 L Anion Gap 9 BUN 69 H Creatinine 2.32 H Estimated GFR 28 L POC Glucose 175 H Random Glucose 161 H Calcium 8.6 Troponin I Triglycerides 118 Cholesterol 82 L LDL Cholesterol, Calc 37 HDL Cholesterol 21.5 L Cholesterol/HDL Ratio 3.81 Vitamin B12 TSH Thyroxine (T4) 06/16/18 06/16/18 06/16/18 07:34 11:34 12:13 Sodium Potassium Chloride Carbon Dioxide Anion Gap BUN Creatinine Estimated GFR POC Glucose 167 H 158 H Random Glucose Calcium Troponin I 0.03 Triglycerides Cholesterol LDL Cholesterol, Calc HDL Cholesterol Cholesterol/HDL Ratio Vitamin B12 706 TSH 1.480 Thyroxine (T4) 2.1 L 06/16/18 06/16/18 06/16/18 15:55 20:46 23:54 Sodium Potassium Chloride Carbon Dioxide Anion Gap BUN Creatinine Estimated GFR POC Glucose 136 H 155 H 179 H Random Glucose Calcium Troponin I Triglycerides Cholesterol LDL Cholesterol, Calc HDL Cholesterol Cholesterol/HDL Ratio Vitamin B12 TSH Thyroxine (T4) 06/17/18 06/17/18 06/17/18 03:55 04:47 07:37 Sodium 149 H Potassium 4.5 Chloride 119 H Carbon Dioxide 21.7 Anion Gap 8 BUN 78 H Creatinine 2.57 H Estimated GFR 25 L POC Glucose 149 H 155 H Random Glucose 145 H Calcium 8.6 Troponin I Triglycerides Cholesterol LDL Cholesterol, Calc HDL Cholesterol Cholesterol/HDL Ratio Vitamin B12 TSH Thyroxine (T4) 06/17/18 11:19 Sodium Potassium Chloride Carbon Dioxide Anion Gap BUN Creatinine Estimated GFR POC Glucose 169 H Random Glucose Calcium Troponin I Triglycerides Cholesterol LDL Cholesterol, Calc HDL Cholesterol Cholesterol/HDL Ratio Vitamin B12 TSH Thyroxine (T4) Imaging: ITS Impressions Abdomen/Bladder Ultrasound 06/03/18 00:00 CONCLUSION: 1. Bilateral simple cysts within the kidneys as above. 2. No findings to indicate renal obstruction. 3. Renal cortex appears of adequate thickness. Abdomen/Pelvis CT 06/04/18 00:00 CONCLUSION: 1. The second and third portions of the duodenum appear mildly prominent and indistinct with mild surrounding inflammatory change extending into the adjacent mesentery. The findings are concerning for duodenitis. 2. Bilateral renal cysts. 3. Minimal pleural effusions and atelectasis in the lung bases. 4. The gallbladder is unremarkable. Head MRA 06/04/18 00:00 CONCLUSION: 1. Atherosclerotic changes involving the left M2 segment. 2. No aneurysm or vascular abnormality identified. 3. Visualization of the known blood products along the right side of the brainstem. Neck MRA 06/04/18 00:00 CONCLUSION: 1. Unremarkable MRA of the carotids. Percent stenosis is calculated using the diameter of the stenotic region over the diameter of the normal distal internal carotid artery Abdomen X-Ray 06/05/18 00:00 CONCLUSION: Feeding tube distal tip is in the gastric body. Knee X-Ray 06/06/18 00:00 CONCLUSION: 1. Moderate suprapatellar effusion. 2. Prominent degenerative osteoarthritis. Knee MRI 06/08/18 07:08 CONCLUSION: 1. Nonspecific joint effusion and moderate severity synovitis. Also nonspecific subcutaneous edema. Nothing organized or drainable. 2. Medial compartment predominant osteoarthritis. 3. Tears of the medial and lateral menisci as above. Cervical Spine MRI 06/08/18 07:09 CONCLUSION: 1. Increased signal anterior to the C6-C7 disc level and between the prominent anterior marginal osteophytes. The anterior longitudinal ligament is not seen. This could be the sequela of an injury in this region. The remaining aspect of the disc is intact. The vertebral bodies demonstrate normal signal. Prevertebral soft tissue swelling is not seen. This could be chronic. Fluid resembling a pseudarthrosis can also develop between osteophytes potentially. The remaining soft tissues appear intact. 2. Mild left lateral recess disc protrusion at the C2-C3 level. 3. Mild central disc protrusion at the C3-C4 level. 4. Mild disc bulge at the C5-C6 level and minimal disc bulge at the C4-C5 level. 5. Scattered neural foraminal narrowing as described above. Lumbar Spine MRI 06/08/18 07:09 CONCLUSION: 1. Severe stenosis at the L4-L5 level. 2. Moderate stenosis at the L2-L3 level. 3. Minimal disc bulge at the L1-L2 level with a small inferiorly directed extruded disc fragment at the right side. Significant stenosis is not seen at this level. 4. No focal fluid collection is identified. Thoracic Spine MRI 06/08/18 07:09 CONCLUSION: 1. Limited, noncontrast examination with no evidence of abscess. 2. Small posterior central protrusion at T5-6 with mild flattening of the anterior cord. 3. Posterior disc bulge at T6-7 with mild flattening of the anterior thecal sac. Head CT 06/14/18 00:00 CONCLUSION: Subarachnoid hemorrhage in the basal cisterns no longer seen. No acute intracranial findings identified. . Head MRI 06/15/18 00:00 CONCLUSION: 1. Scattered foci of restricted diffusion have developed within the left cerebral white matter predominantly within the tavarez radiata and periventricular white matter of the left occipital lobe consistent with small white matter infarcts 2. Otherwise stable evaluation. No evidence of cortical infarct, hemorrhage, mass or edema. Chest X-Ray 06/15/18 06:00 CONCLUSION: No significant interval change with persistent patchy opacity at the left lung base. Physical Exam: GENERAL: Sedated on the vent, not in respiratory distress. SKIN: Warm and dry. No generalized rash, no ecchymoses HEAD: Atraumatic. Normocephalic. No temporal wasting, or tenderness. EYES: [place] conjunctiva. No petechia or hemorrhage. Pupils equal, round and reactive to light. No scleral icterus. No injection or drainage. EARS, NOSE AND THROAT: Nose without bleeding or purulent nasal discharge. Orally intubated NECK: Trachea midline. Supple and not tender, no meningeal signs CARDIOVASCULAR: Regular rate and rhythm. No murmurs, rubs or gallops heard RESPIRATORY: Clear to auscultation. Breath sounds equal bilaterally. No rales , wheezing or rhonchi ABDOMEN: Soft, obese, globular, distended bowel sounds present and normoactive. EXTREMITIES: Left knee dressing intact, drain in place with small amount sanguinous discharge NEUROLOGICAL: Sedated. PSYCHIATRIC: Unable to assess. LINE: No evidence of infection : [place] in place, urine better Assessment and Plan - Plan Impression MRSA sepsis on presentation, worrisome for IE - more (+) BC - LAURIE negative - MRSA not a common pathogen - so far no obvious source for the MRSA, and very likely endovascular - BC still (+) - Has septic L knee UTI - first UC with MRSA; now with E coli ESBL on Rx - last UC now with Septic L knee, MRSA Hemorrhage posterior fossa - no aneurysm: MRA negative for mycotic aneurism Hx DM, HTN, Obesity Renal insufficiency, improving Fevers, better Respiratory failure Recommendation Follow C/S Continue Cubicin Add Teflaro Continue Invanz - will give until 06/19 Continue Diflucan MRI R knee If still (+), will do WBC scan - to look for any undrained focus Monitor progress Follow temps Follow CBC Weaning per CCM D/W RN
[2018-06-17] MEDS: Acetaminophen 325 MG Tablet PO PRN (13:42)
[2018-06-17] MEDS ORDERED: Ceftaroline Inj 300 MG in Sodium Chlor 0.9% Inj 100 ML IV.SIG SCH (14:00)
[2018-06-17] MEDS: Ceftaroline Inj 300 MG in Sodium Chlor 0.9% Inj 100 ML IV.SIG SCH (14:34)
--- NOTE | 2018-06-17 17:02 | MR ---
EXAM DATE: 06/17/2018 4:42 PM EST AGE/SEX: 68 years / Male INDICATIONS: . Swelling of the right knee. CLINICAL DATA: This is the patient's subsequent encounter. Patient reports that signs and symptoms h ave been present for 1 week and indicates a pain score of Nonresponsive. MEDICAL/SURGICAL HISTORY: Hypertension. Diabetes mellitus type II. . Toe sx. COMPARISON: No prior exams available for comparison. TECHNIQUE: Multiplanar, multisequence MRI examination was performed without contrast. FINDINGS: Cruciate Ligaments: The PCL appears to be grossly intact. There is some abnormal signal associated w ith the ACL's suspicious for an ACL tear. Menisci: There is abnormal signal involving the lateral meniscus suspicious for a tear. The medial m eniscus is grossly within normal limits. Collateral Ligaments: MCL and LCL complexes are intact. Marrow/Cartilage: There are degenerative changes involving the knee joint. There are chronic changes along the articulating surface of the lateral tibial plateau. No significant bone bruising is demons trated. Other: There is a moderate joint effusion present. There are multiple filling defects within the ramu nt effusion. There is diffuse nonspecific edema and soft tissue swelling in the subcutaneous soft tis sues that surrounds the knee. No loculated fluid collections are demonstrated. CONCLUSION: 1. Diffuse nonspecific soft tissue swelling and edema involving the subcutaneous soft tissues that s urround the knee. 2. Moderate joint effusion with multiple filling defects. This could be joint mice. 3. Abnormal signal involving the lateral meniscus highly suspicious for meniscal tear. 4. Abnormal signal involving the ACL ligament suspicious for tear. 5. Primary degenerative arthritis involving the knee joint. Electronically signed by: Jose Manuel Olivarez MD Board Certified Radiologist 06/17/2018 5:01 PM EST
[2018-06-18] MEDS: Sodium Chloride 23.4% Inj 38.5 MEQ in Water for Inj, Sterile 1,000 ML IV.CONT SCH ×3 (00:11→18:22)
[2018-06-18] MEDS: Insulin NovoLIN Regular Correctional Sugar Inj SQ SCH ×4 (00:16→17:27)
[2018-06-18] MEDS: Oral Hygiene Kit OROPHARYNG SCH ×4 (00:16→16:36)
[2018-06-18] MEDS: Ceftaroline Inj 300 MG in Sodium Chlor 0.9% Inj 100 ML IV.SIG SCH ×2 (03:08→15:46)
[2018-06-18 06:50] LABS: Baso # (Auto) 0.1 th/mm3 (0.0-0.2); Baso % (Auto) 0.8 % (0.0-2.0); Eos # (Auto) 0.2 th/mm3 (0.0-0.4); Eos % (Auto) 1.6 % (0.0-4.0); Hematocrit 24.2 % (39.0-51.0); Hemoglobin 7.9 gm/dL (13.0-17.0); Lymph # (Auto) 1.3 th/mm3 (1.0-4.8); Lymph % (Auto) 13.3 % (9.0-44.0); Mean Corpuscular HGB Conc 32.8 % (32.0-36.0); Mean Corpuscular Volume 91.2 fL (80.0-100.0); Mono # (Auto) 0.7 th/mm3 (0.0-0.9); Neut # (Auto) 7.8 th/mm3 (1.8-7.7); Neut % (Auto) 77.3 % (16.0-70.0); Platelet Count 298 th/mm3 (150-450); Red Blood Count 2.65 mil/mm3 (4.50-5.90); Red Cell Distribution Width 16.3 % (11.6-17.2); White Blood Count 10.1 th/mm3 (4.0-11.0)
[2018-06-18 07:06] LABS: Calcium 8.6 mg/dL (8.5-10.1); Carbon Dioxide 21.1 meq/L (21.0-32.0); Potassium 4.3 meq/L (3.5-5.1)
--- NOTE | 2018-06-18 07:47 | P.PNCC ---
Subjective Subjective Remarks/Hospital Course: 06/03: Patient is a 68-year-old male with past medical history significant for type 2 diabetes, hypertension, morbid obesity who presented to the [facility] emergency department with weakness and slurred speech. Symptoms present for 2 days, apparently he was found on the floor of his mobile home. He was noted to have high fever at the [facility] his WBC count was 21.3 UA was positive. His sodium was 134 BUN 50 with a creatinine of 2.33 bicarb was 16 lactic acid was 6.8. CPK more than 3000 at the outside hospital. A CT of the head showed focal hemorrhage into the right quadrigeminal plate cistern. Dr. Hopkins was contacted who accepted the patient and requested admission to critical care. Patient was accepted to [facility] at [place] Dr. Deluca evaluated the patient in the [facility], he is lying in the bed. Slightly tachypneic moderate distress. Patient is oriented to place and person. CT of the head repeated here at [place] showed hemorrhage along the posterior aspect of the brainstem measuring up to 2.8 cm in maximal diameter. Mild mass effect on the brainstem. No hydrocephalus. I have started the patient on Cardene infusion for tight blood pressure control. Zosyn for UTI. 2% saline will be started to keep sodium above 150. Avoid mannitol due to renal failure. Keppra for seizure prophylaxis. I am unable to find coags but platelet count was normal. 06/04: MRSA bacteremia ob blood cultures drawn on admission. Currently on precedex, on room air. Awake, follows commands, speech, unintelligible. Started on IV vanc. ID consulted as concern for septic emboli/ endocarditis as cause for brainstem bleed. 06/05: 48 hours following a mid brain spontaneous hemorrhage complicated by numerous MRSA blood cultures. Blood pressure acceptably well controlled. Fever pattern persists. Patient tolerating extubation and protecting airway adequately. Taper completely off Precedex. Serum osmolality acceptably concentrated. 06/06: Serum osmolality acceptable, will allow sodium to drift back into the lower 150s now. Patient is alert and interactive. He moves 4 limbs spontaneously. Episodic fevers to 102+. We will continue with infectious disease workup for source of bacteremia. Endocarditis remains high on the list of possibilities. 06/07: Awake, alert, following commands. Speech very slurred however responds appropriately. Slight disorientation. Thought he was in [place]. Knows he is in the hospital. Complains of back pain. 06/08: Drowsy, arousable, tachypneic. Sodium up to 163, started on D5W and free water. Creatinine up. Tolerating tube feeds. Awaiting MRI. Will need LAURIE. Will need intubation probably for airway and in order to transport for MRI and LAURIE. 06/09: Patient intubated and placed on mechanical ventilation on 06/09. Dr. Hopkins has cleared patient for LAURIE/anticoagulation/valve surgery if needed. We are awaiting LAURIE for further evaluation of MRSA bacteremia by cardiology to determine source. Orthopedics evaluating left knee synovitis/effusion/meniscal tear. 06/10: Underwent aspiration of the left knee yesterday which is growing MRSA. Remains sedated, orally intubated on mechanical ventilation. Underwent LAURIE today which did not reveal any vegetation. Being followed by orthopedics/ID/ neurosurgery. 06/11: Remains orally intubated on mechanical ventilation. Scheduled for OR for left knee septic arthritis with Dr. Carlson. 06/12: Remains orally intubated on mechanical ventilation. Waiting for OR for left knee septic arthritis with Dr. Carlson 06/13: Remains intubated sedated. On sedation hold localizes to pain. Status post left knee lateral arthrotomy with irrigation and debridement. Fluid culture growing MRSA 06/14: Remains intubated sedated. On sedation hold now not waking up or following commands weakly withdraws extremities. WBC count increasing. Sodium coming down with hypotonic saline. 06/15: All sedation now held more than 36 hours. No significant improvement in mentation. Spontaneously moving upper extremity withdraws lowers to pain. CT of the head yesterday essentially unchanged with resolution of previously seen subarachnoid hemorrhage in the basal cisterns 06/16: Failed CPAP after 20 minutes this morning due to erratic and rapid respiratory effort. Opens eyes with movement but does not focus or track. 06/17: We will need to discuss tracheostomy with his son this morning. No improvement in neurologic function overnight. Continues to fail efforts at spontaneous breathing trials. Hypokalemia needs gingerly replacement this morning. 06/18: No improvement in neurologic function. Basically remains largely unresponsive aside from occasional eye-opening to noxious stimulation. Persistent positive bloodstream cultures. Dependent on mechanical ventilation. Objective Vital Signs / I&O: Vital Signs 06/17/18 07:49 06/17/18 08:00 06/17/18 08:16 Temperature 100.2 F H 100.2 F H Pulse Rate 88 88 Respiratory Rate 34 H Blood Pressure 150/70 H Pulse Oximetry 100 100 100 06/17/18 08:49 06/17/18 09:00 06/17/18 09:49 Temperature 99.7 F H 99.5 F 99.3 F Pulse Rate 92 H 93 H 89 Respiratory Rate Blood Pressure 155/73 H 147/69 H Pulse Oximetry 98 100 100 06/17/18 10:00 06/17/18 10:49 06/17/18 11:00 Temperature 99.3 F 99.5 F 99.7 F H Pulse Rate 88 76 69 Respiratory Rate Blood Pressure 123/58 L Pulse Oximetry 100 100 100 06/17/18 11:49 06/17/18 12:00 06/17/18 12:28 Temperature 99.5 F 99.5 F Pulse Rate 78 76 Respiratory Rate 33 H Blood Pressure 143/65 H Pulse Oximetry 100 100 100 06/17/18 12:49 06/17/18 13:00 06/17/18 13:49 Temperature 99.7 F H 99.7 F H 99.7 F H Pulse Rate 75 88 86 Respiratory Rate Blood Pressure 124/59 L 122/57 L Pulse Oximetry 95 100 100 06/17/18 14:00 06/17/18 14:49 06/17/18 15:00 Temperature 99.7 F H 99.1 F 99.1 F Pulse Rate 82 79 79 Respiratory Rate Blood Pressure 118/59 L Pulse Oximetry 100 100 100 06/17/18 15:49 06/17/18 15:50 06/17/18 16:00 Temperature 98.8 F 98.8 F Pulse Rate 76 90 80 Respiratory Rate Blood Pressure 132/101 H 133/93 H Pulse Oximetry 100 100 100 06/17/18 16:35 06/17/18 17:00 06/17/18 17:17 Temperature 99.1 F Pulse Rate 72 Respiratory Rate 26 H Blood Pressure Pulse Oximetry 99 100 100 06/17/18 18:00 06/17/18 19:00 06/17/18 19:49 Temperature 99.3 F 99.5 F Pulse Rate 91 H 95 H Respiratory Rate 15 28 H Blood Pressure Pulse Oximetry 100 100 100 06/17/18 20:00 06/17/18 20:09 06/17/18 20:53 Temperature 99.9 F H 100.0 F H 100.2 F H Pulse Rate 80 89 77 Respiratory Rate 20 Blood Pressure 130/60 109/53 L Pulse Oximetry 100 100 100 06/17/18 21:00 06/17/18 22:00 06/17/18 22:24 Temperature 100.2 F H 100.2 F H 100.2 F H Pulse Rate 87 69 69 Respiratory Rate 21 Blood Pressure 121/60 99/53 L 115/55 L Pulse Oximetry 100 100 100 06/17/18 23:00 06/17/18 23:54 06/18/18 00:00 Temperature 100.2 F H 100.2 F H Pulse Rate 70 86 Respiratory Rate 27 H 24 Blood Pressure 110/56 L 129/60 Pulse Oximetry 100 100 100 06/18/18 01:00 06/18/18 01:36 06/18/18 02:00 Temperature 100.2 F H 100.0 F H 99.9 F H Pulse Rate 93 H 82 81 Respiratory Rate 22 Blood Pressure 128/61 123/58 L Pulse Oximetry 100 95 94 L 06/18/18 03:00 06/18/18 03:09 06/18/18 04:00 Temperature 100.0 F H 100.8 F H Pulse Rate 87 88 Respiratory Rate 32 H 20 Blood Pressure 141/63 H 133/61 Pulse Oximetry 100 100 100 06/18/18 05:00 06/18/18 06:00 Temperature 100.9 F H 100.6 F H Pulse Rate 81 83 Respiratory Rate 26 H Blood Pressure 130/60 127/61 Pulse Oximetry 100 100 Intake & Output 06/17/18 06/18/18 06/18/18 18:59 06:59 18:59 Intake Total 700 / 700 2006.625 / 2006.625 Output Total 2950 / 2950 2400 / 2400 Balance -2250 / -2250 -393.375 / -393.375 Weight 131 kg Intake: IV 405 / 405 1214.625 / 1214.625 Sodium Chloride 23.4% Inj 38.5 1009.625 / 1009.625 MEQ In Sterile Water for Inj 1, 000 ML @ 100 mls/hr IV.CONT . Q10H6M [facility] Rx#:[id number] Teflaro Inj 300 MG In NS Inj 100 / 100 100 / 100 100 ML @ 100 mls/hr IV.SIG Q12H [facility] Rx#:[id number] Cubicin Inj 800 MG In NS Inj 100 / 100 100 ML @ 200 mls/hr IV.SIG Q24H [facility] Rx#:[id number] INVanz Inj 1,000 MG In NS Inj 100 / 100 100 ML @ 200 mls/hr IV.SIG Q24H [facility] Rx#:[id number] Keppra Inj 500 MG In NS Inj 100 105 / 105 105 / 105 ML @ 400 mls/hr IV.SIG Q12H [facility] Rx#:[id number] Tube Feeding 295 / 295 292 / 292 Water Bolus Amount 500 / 500 Output: Urine Amount (Catheter) 2950 / 2950 2400 / 2400 Indwelling Urethral Catheter 2950 / 2950 2400 / 2400 Other: Date of Last Bowel Movement 06/17/18 06/18/18 # Bowel Movements 0 # Incontinent Bowel Movements 1 Result Diagrams: 06/18/18 06:07 06/18/18 06:02 Objective Remarks: GENERAL: Ill appearing 68-year-old male lying SKIN: Focused skin assessment warm/dry. HEAD: Atraumatic. Normocephalic. EYES: Pupils equal and round. No conjunctival icterus. ENT: No nasal bleeding or discharge. Orotracheal intubation. CARDIOVASCULAR: Normal S1-S2. No murmurs. Regular rate and rhythm. No JVD. RESPIRATORY: Few scattered rhonchi, acceptable excursions on mechanical ventilation. No wheezes. GASTROINTESTINAL: Abdomen soft, non-tender, nondistended. BS present. No guarding. MUSCULOSKELETAL: Warm, well perfused. Left knee Hemovac drain in place. NEUROLOGICAL: Largely unresponsive, orally intubated, Pupils equal 2 mm, reactive. Patient localizes to pain with LUE, minimally withdraws the lower extremities. Opens eyes but does not focus or track. No improvement over the past 24 hours. Assessment and Plan - Problem List (1) 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 Status: Acute (2) Encephalopathy acute Code(s): G93.40 - Encephalopathy, unspecified Status: Acute (3) Acute kidney failure Code(s): N17.9 - Acute kidney failure, unspecified Status: Acute (4) Severe sepsis Code(s): A41.9 - Sepsis, unspecified organism; R65.20 - Severe sepsis without septic shock Status: Acute (5) Metabolic acidemia Code(s): E87.2 - Acidosis Status: Acute (6) UTI (urinary tract infection) Code(s): N39.0 - Urinary tract infection, site not specified Status: Acute (7) Lactic acidosis Code(s): E87.2 - Acidosis Status: Acute (8) Rhabdomyolysis Code(s): M62.82 - Rhabdomyolysis Status: Acute (9) Obesity Code(s): E66.9 - Obesity, unspecified Status: Chronic (10) Hypertension Code(s): I10 - Essential (primary) hypertension Status: Chronic (11) Diabetes Code(s): E11.9 - Type 2 diabetes mellitus without complications Status: Chronic - Assessment and Plan Plan: NEURO: Brainstem hemorrhage measuring up to 2.8 cm in maximal diameter, mild mass effect Metabolic encephalopathy -Repeat CT 06/14: Subarachnoid hemorrhage in the basal cisterns as resolved. -EEG done yesterday 06/14/2018 shows moderate encephalopathy -Neurosurgery Dr. Hopkins -Currently on free water/1/2 NS for hypernatremia -Close neuro monitoring. Prev MRI/MRA brain results noted -Head CT 06/08 shows resolving brainstem hemorrhage. -Keppra for seizure prophylaxis -Discontinue all sedation DC propofol, Precedex, Fentanyl -With MRSA bacteremia suspect septic emboli with mycotic aneurism vs hypertensive bleed. -MRI spine reviewed, no evidence of epidural abscess -MRI head with numerous small ischemic infarcts, embolic in appearance -Continues largely unresponsive 06/18/18 RESP: Acute respiratory failure on mechanical ventilation Past smoking -DuoNeb every as needed -Continue mechanical ventilation, vent bundle, bronchodilators as needed -Daily CPAP trials. -Mental status will not permit extubation -Intubated on 06/08/2018, vent day 10 patient, will need tracheostomy. CV: Lactic acidemia Hypotension History of hypertension -Initial lactic acid at the outside hospital was 6.8 -Resuscitated with normal saline IV fluids, transthoracic echo -Half NS due to hypernatremia -Cardiology Dr. Odonnell consulted to perform LAURIE to evaluate for endocarditis -LAURIE 06/10 negative for any vegetations. GI: -NG tube in place. Tube feeds and advance to goal as tolerated. : Acute kidney injury Rhabdomyolysis -Monitor renal function closely. Replace Hays catheter due to candiduria, repeat culture -Strict intake output, monitor and replete electrolytes. -Nephrology following for rising creatinine-suspect multifactorial secondary to sepsis/vancomycin/gentamicin toxicity/IV contrast exposure. -Replace electrolyte losses. ID: Severe sepsis ESBL E. coli UTI MRSA bacteremia MRSA left knee septic arthritis -On Cubicin. Cefepime changed to Invanz on 06/10 for ESBL E. coli in urine culture -Status post left knee lateral arthrotomy with irrigation and debridement. Fluid culture growing MRSA -s/p MRI left knee due to swelling -orthopedics performed left knee aspiration on 06/09 with drainage of 60 cc of purulent cloudy fluid which is growing MRSA. -Vancomycin and gentamicin discontinued on 06/08 per ID due to worsening renal function. Blood cultures positive for MRSA (10/07) - ID Dr. Rodriguez -LAURIE negative for vegetation on 06/10 -Ortho following and to decide further management for left knee septic arthritis - HEME: Leukocytosis secondary to sepsis -Monitor CBC, coags ENDO: Type 2 diabetes -Sliding scale insulin -Basal long-acting insulin PROPH: -Bilateral lower extremity SCDs. IV famotidine. Subcutaneous heparin for DVT prophylaxis LINES: -Utilize peripheral IVs, central line if needed Overall impression: Blood pressure control remains problematic and will need additional scheduled medication. Agitation appears better controlled. Bacteremia remains persistent and possibly life-threatening problem. Neurologic status poor and unstable. 06/08: D/W Dr. Hopkins. called patient's son Abraham Bautista at [phone] and updated him regarding current clinical status and plan to int[facility]ate [facility] due to concern regarding airway protection and in order to safely get imaging and possibly LAURIE and he voiced understanding and was agreeable. Will call again today Critical care time 35 minutes aside from procedures. (1) Brain stem hemorrhage Qualifiers: Intracerebral hemorrhage etiology: nontraumatic
[2018-06-18] MEDS: Chlorhexidine 0.12% Oral Kit 15 ML UDC OROPHARYNG SCH ×2 (09:01→21:10)
[2018-06-18] MEDS: Fluconazole 100 MG Tablet PO SCH (09:01)
[2018-06-18] MEDS: Heparin - SQ 10,000 UNITS/ML Vial SQ SCH ×2 (09:01→21:36)
[2018-06-18] MEDS: Senna/Docusate Sodium 8.6/50 MG Tablet PO SCH ×2 (09:02→21:37)
[2018-06-18] MEDS: Famotidine PF Inj 20 MG/2 ML Vial IV.PUSH SCH ×2 (09:02→21:36)
[2018-06-18 10:45] LABS: Methylmalonic Acid 1.37 nmol/mL (<=0.40)
[2018-06-18] MEDS: DAPTOmycin Inj 800 MG in Sodium Chlor 0.9% Inj 100 ML IV.SIG SCH (11:59)
--- NOTE | 2018-06-18 16:04 | P.PNID ---
Subjective Remarks: Patient is a 68-year-old male, brought into the hospital initially at [facility] for evaluation of weakness and slurred speech. It apparently has been present for several days. He was found on the floor of his mobile home. At [facility] he was found to be febrile, WBC up to 21,000, urinalysis with pyuria, creatinine 2.33, and lactic acid was elevated. CT of the head showed focal hemorrhage in the posterior fossa. Patient was transferred to [facility] for neurosurgical evaluation. Patient since admission has had elevated temperature. His blood cultures done on admission are now reported as growing gram-positive cocci, MRSA. His urine culture is also growing MRSA. On evaluation in the intensive care unit, he is awake, and interactive. He looks slightly tachypneic at rest and and on nasal O2. He has some confusion but mostly his oriented. His chest x-ray is normal. Echo is showing calcification in the aortic valve. No vegetations seen. Infectious disease consultation has been requested to assist with evaluation and treatment of patient with MRSA bacteremia. Notes reviewed D/W RN Temps low grade BP ok On the vent Did not tolerate CPAP Not on sedation, not waking up Moves both feet when touched Last (+) BC 06/16 MRI R knee noted Had I and D L knee 06/12 LAURIE no vegetation seen No rash No diarrhea MRI spine ok CT A/P no abscess Antibiotics: Cubicin Teflaro Invanz Diflucan Lines: PIV Past Medical History: Diabetes History of MRSA infection Onset Date: ~06/03/18 Hypertension Obesity UTI (urinary tract infection) Allergies/Adverse Reactions: Allergies No Known Allergies Allergy (Verified 06/03/18 01:32) Objective Vital Signs 06/17/18 16:35 06/17/18 17:00 06/17/18 17:17 Temperature 99.1 F Pulse Rate 72 Respiratory Rate 26 H Blood Pressure Pulse Oximetry 99 100 100 06/17/18 18:00 06/17/18 19:00 06/17/18 19:49 Temperature 99.3 F 99.5 F Pulse Rate 91 H 95 H Respiratory Rate 15 28 H Blood Pressure Pulse Oximetry 100 100 100 06/17/18 20:00 06/17/18 20:09 06/17/18 20:53 Temperature 99.9 F H 100.0 F H 100.2 F H Pulse Rate 80 89 77 Respiratory Rate 20 Blood Pressure 130/60 109/53 L Pulse Oximetry 100 100 100 06/17/18 21:00 06/17/18 22:00 06/17/18 22:24 Temperature 100.2 F H 100.2 F H 100.2 F H Pulse Rate 87 69 69 Respiratory Rate 21 Blood Pressure 121/60 99/53 L 115/55 L Pulse Oximetry 100 100 100 06/17/18 23:00 06/17/18 23:54 06/18/18 00:00 Temperature 100.2 F H 100.2 F H Pulse Rate 70 86 Respiratory Rate 27 H 24 Blood Pressure 110/56 L 129/60 Pulse Oximetry 100 100 100 06/18/18 01:00 06/18/18 01:36 06/18/18 02:00 Temperature 100.2 F H 100.0 F H 99.9 F H Pulse Rate 93 H 82 81 Respiratory Rate 22 Blood Pressure 128/61 123/58 L Pulse Oximetry 100 95 94 L 06/18/18 03:00 06/18/18 03:09 06/18/18 04:00 Temperature 100.0 F H 100.8 F H Pulse Rate 87 88 Respiratory Rate 32 H 20 Blood Pressure 141/63 H 133/61 Pulse Oximetry 100 100 100 06/18/18 05:00 06/18/18 06:00 06/18/18 07:00 Temperature 100.9 F H 100.6 F H 100.2 F H Pulse Rate 81 83 90 Respiratory Rate 26 H Blood Pressure 130/60 127/61 134/63 Pulse Oximetry 100 100 100 06/18/18 08:00 06/18/18 08:05 06/18/18 09:00 Temperature 100.0 F H 99.9 F H Pulse Rate 87 86 Respiratory Rate 32 H Blood Pressure 136/68 134/62 Pulse Oximetry 100 100 100 06/18/18 10:00 06/18/18 11:00 06/18/18 11:33 Temperature 99.7 F H 99.7 F H Pulse Rate 79 82 Respiratory Rate 27 H Blood Pressure 128/60 142/67 H Pulse Oximetry 100 100 98 06/18/18 12:00 06/18/18 13:00 06/18/18 14:00 Temperature 99.7 F H 99.5 F 99.5 F Pulse Rate 85 78 79 Respiratory Rate Blood Pressure 133/60 128/59 L 130/61 Pulse Oximetry 99 100 100 06/18/18 15:00 Temperature 99.7 F H Pulse Rate 78 Respiratory Rate Blood Pressure 125/58 L Pulse Oximetry 95 Intake & Output 06/17/18 06/18/18 06/18/18 18:59 06:59 18:59 Intake Total 700 / 700 2005.625 / 625 1109.625 / 1109.625 Output Total 2950 / 2950 2400 / 2400 Balance -2250 / -2250 -393.375 / -819.596 1337.625 / 1109.625 Weight 131 kg Intake: IV 405 / 405 1214.625 / 1877.979 8996.625 / 1109.625 Sodium Chloride 23.4% Inj 38.5 1009.625 / 9833.088 5946.625 / 1009.625 MEQ In Sterile Water for Inj 1, 000 ML @ 100 mls/hr IV.CONT . Q10H6M JACOB Rx#:[id number] Teflaro Inj 300 MG In NS Inj 100 / 100 100 / 100 100 ML @ 100 mls/hr IV.SIG Q12H JACOB Rx#:[id number] Cubicin Inj 800 MG In NS Inj 100 / 100 100 / 100 100 ML @ 200 mls/hr IV.SIG Q24H JACOB Rx#:[id number] INVanz Inj 1,000 MG In NS Inj 100 / 100 100 ML @ 200 mls/hr IV.SIG Q24H JACOB Rx#:[id number] Keppra Inj 500 MG In NS Inj 100 105 / 105 105 / 105 ML @ 400 mls/hr IV.SIG Q12H JACOB Rx#:[id number] Tube Feeding 295 / 295 292 / 292 Water Bolus Amount 500 / 500 Output: Urine Amount (Catheter) 2950 / 2950 2400 / 2400 Indwelling Urethral Catheter 2950 / 2950 2400 / 2400 Other: Date of Last Bowel Movement 06/17/18 06/18/18 06/17/18 # Bowel Movements 0 # Incontinent Bowel Movements 1 06/16/18 05:53 Blood - Peripheral Aerobic Blood Culture - Final S. aureus MRSA 06/16/18 05:53 Blood - Peripheral Anaerobic Blood Culture - Preliminary No growth in 2 days 06/13/18 18:50 Blood - Peripheral Aerobic Blood Culture - Final S. aureus MRSA 06/13/18 18:50 Blood - Peripheral Anaerobic Blood Culture - Final No growth in 5 days 06/13/18 19:00 Blood - Peripheral Aerobic Blood Culture - Final S. aureus MRSA 06/13/18 19:00 Blood - Peripheral Anaerobic Blood Culture - Final No growth in 5 days 06/18/18 06:08 Blood - Peripheral Aerobic Blood Culture - Pending 06/18/18 06:08 Blood - Peripheral Anaerobic Blood Culture - Pending 06/15/18 13:50 Blood - Peripheral Aerobic Blood Culture - Final S. aureus MRSA 06/15/18 13:50 Blood - Peripheral Anaerobic Blood Culture - Preliminary gram positive cocci 06/15/18 16:55 Catheterized Urine Urine Culture - Final Lavinia tropicalis 06/14/18 16:10 Clean Catch Urine Urine Culture - Final Lavinia tropicalis 06/11/18 07:41 Blood - Peripheral Aerobic Blood Culture - Final S. aureus MRSA 06/11/18 07:41 Blood - Peripheral Anaerobic Blood Culture - Final No growth in 5 days 06/14/18 16:10 Sputum - Endotracheal Gram Stain - Final 06/14/18 16:10 Sputum - Endotracheal Sputum Culture - Final Moderate growth normal respiratory sepideh Lab - Hematology Results 06/17/18 06/18/18 03:55 06:07 WBC 9.3 10.1 RBC 2.81 L 2.65 L Hgb 8.4 L 7.9 L Hct 25.0 L 24.2 L MCV 89.0 91.2 MCH 30.1 30.0 MCHC 33.8 32.8 RDW 15.9 16.3 Plt Count 325 298 MPV 8.5 9.0 Neut % (Auto) 76.5 H 77.3 H Lymph % (Auto) 13.8 13.3 [place] % (Auto) 7.3 7.0 Eos % (Auto) 1.7 1.6 Baso % (Auto) 0.7 0.8 Neut # (Auto) 7.1 7.8 H Lymph # (Auto) 1.3 1.3 [place] # (Auto) 0.7 0.7 Eos # (Auto) 0.2 0.2 Baso # (Auto) 0.1 0.1 WBC Differential . . Differential Comment Auto diff final Auto diff final Lab - Chemistry Results 06/16/18 06/16/18 06/16/18 12:13 15:55 20:46 Sodium Potassium Chloride Carbon Dioxide Anion Gap BUN Creatinine Estimated GFR POC Glucose 136 H 155 H Random Glucose Calcium Thiamine 56 L Methylmalonic Acid 1.37 H 06/16/18 06/17/18 06/17/18 23:54 03:55 04:47 Sodium 149 H Potassium 4.5 Chloride 119 H Carbon Dioxide 21.7 Anion Gap 8 BUN 78 H Creatinine 2.57 H Estimated GFR 25 L POC Glucose 179 H 149 H Random Glucose 145 H Calcium 8.6 Thiamine Methylmalonic Acid 06/17/18 06/17/18 06/17/18 07:37 11:19 17:18 Sodium Potassium Chloride Carbon Dioxide Anion Gap BUN Creatinine Estimated GFR POC Glucose 155 H 169 H 167 H Random Glucose Calcium Thiamine Methylmalonic Acid 06/18/18 06/18/18 06/18/18 00:00 05:28 06:02 Sodium 148 H Potassium 4.3 Chloride 115 H Carbon Dioxide 21.1 Anion Gap 12 BUN 79 H Creatinine 2.56 H Estimated GFR 25 L POC Glucose 148 H 154 H Random Glucose 150 H Calcium 8.6 Thiamine Methylmalonic Acid 06/18/18 11:38 Sodium Potassium Chloride Carbon Dioxide Anion Gap BUN Creatinine Estimated GFR POC Glucose 185 H Random Glucose Calcium Thiamine Methylmalonic Acid Imaging: ITS Impressions Abdomen/Bladder Ultrasound 06/03/18 00:00 CONCLUSION: 1. Bilateral simple cysts within the kidneys as above. 2. No findings to indicate renal obstruction. 3. Renal cortex appears of adequate thickness. Abdomen/Pelvis CT 06/04/18 00:00 CONCLUSION: 1. The second and third portions of the duodenum appear mildly prominent and indistinct with mild surrounding inflammatory change extending into the adjacent mesentery. The findings are concerning for duodenitis. 2. Bilateral renal cysts. 3. Minimal pleural effusions and atelectasis in the lung bases. 4. The gallbladder is unremarkable. Head MRA 06/04/18 00:00 CONCLUSION: 1. Atherosclerotic changes involving the left M2 segment. 2. No aneurysm or vascular abnormality identified. 3. Visualization of the known blood products along the right side of the brainstem. Neck MRA 06/04/18 00:00 CONCLUSION: 1. Unremarkable MRA of the carotids. Percent stenosis is calculated using the diameter of the stenotic region over the diameter of the normal distal internal carotid artery Abdomen X-Ray 06/05/18 00:00 CONCLUSION: Feeding tube distal tip is in the gastric body. Knee X-Ray 06/06/18 00:00 CONCLUSION: 1. Moderate suprapatellar effusion. 2. Prominent degenerative osteoarthritis. Cervical Spine MRI 06/08/18 07:09 CONCLUSION: 1. Increased signal anterior to the C6-C7 disc level and between the prominent anterior marginal osteophytes. The anterior longitudinal ligament is not seen. This could be the sequela of an injury in this region. The remaining aspect of the disc is intact. The vertebral bodies demonstrate normal signal. Prevertebral soft tissue swelling is not seen. This could be chronic. Fluid resembling a pseudarthrosis can also develop between osteophytes potentially. The remaining soft tissues appear intact. 2. Mild left lateral recess disc protrusion at the C2-C3 level. 3. Mild central disc protrusion at the C3-C4 level. 4. Mild disc bulge at the C5-C6 level and minimal disc bulge at the C4-C5 level. 5. Scattered neural foraminal narrowing as described above. Lumbar Spine MRI 06/08/18 07:09 CONCLUSION: 1. Severe stenosis at the L4-L5 level. 2. Moderate stenosis at the L2-L3 level. 3. Minimal disc bulge at the L1-L2 level with a small inferiorly directed extruded disc fragment at the right side. Significant stenosis is not seen at this level. 4. No focal fluid collection is identified. Thoracic Spine MRI 06/08/18 07:09 CONCLUSION: 1. Limited, noncontrast examination with no evidence of abscess. 2. Small posterior central protrusion at T5-6 with mild flattening of the anterior cord. 3. Posterior disc bulge at T6-7 with mild flattening of the anterior thecal sac. Head CT 06/14/18 00:00 CONCLUSION: Subarachnoid hemorrhage in the basal cisterns no longer seen. No acute intracranial findings identified. . Head MRI 06/15/18 00:00 CONCLUSION: 1. Scattered foci of restricted diffusion have developed within the left cerebral white matter predominantly within the tavarez radiata and periventricular white matter of the left occipital lobe consistent with small white matter infarcts 2. Otherwise stable evaluation. No evidence of cortical infarct, hemorrhage, mass or edema. Chest X-Ray 06/15/18 06:00 CONCLUSION: No significant interval change with persistent patchy opacity at the left lung base. Knee MRI 06/17/18 00:00 CONCLUSION: 1. Diffuse nonspecific soft tissue swelling and edema involving the subcutaneous soft tissues that surround the knee. 2. Moderate joint effusion with multiple filling defects. This could be joint mice. 3. Abnormal signal involving the lateral meniscus highly suspicious for meniscal tear. 4. Abnormal signal involving the ACL ligament suspicious for tear. 5. Primary degenerative arthritis involving the knee joint. Physical Exam: GENERAL: on the vent, not responding, not in respiratory distress. SKIN: Warm and dry. No generalized rash, no ecchymoses HEAD: Atraumatic. Normocephalic. No temporal wasting, or tenderness. EYES: [place] conjunctiva. No petechia or hemorrhage. No scleral icterus. No injection or drainage. EARS, NOSE AND THROAT: Nose without bleeding or purulent nasal discharge. Orally intubated NECK: Trachea midline. Supple and not tender, no meningeal signs CARDIOVASCULAR: Regular rate and rhythm. No murmurs, rubs or gallops heard RESPIRATORY: Clear to auscultation. Breath sounds equal bilaterally. No rales , wheezing or rhonchi ABDOMEN: Soft, obese, globular, distended bowel sounds present and normoactive. EXTREMITIES: Left knee dressing intact; R knee not red NEUROLOGICAL: Moves both feet when touched PSYCHIATRIC: Unable to assess. LINE: No evidence of infection : [place] in place, urine better Assessment and Plan - Plan Impression MRSA sepsis on presentation, worrisome for IE - more (+) BC - LAURIE negative - MRSA not a common pathogen - so far no obvious source for the MRSA, and very likely endovascular - BC still (+) - Has septic L knee UTI - first UC with MRSA; now with E coli ESBL on Rx - last UC now with Lavinia Septic L knee, MRSA Hemorrhage posterior fossa - no aneurysm: MRA negative for mycotic aneurism Hx DM, HTN, Obesity Renal insufficiency, improving Fevers, better Respiratory failure Recommendation Follow C/S Continue Cubicin Continue Teflaro Continue Invanz - will give until 06/19 Continue Diflucan If still (+), will do WBC scan - to look for any undrained focus Monitor progress Follow temps Follow CBC Weaning per [facility] D/W RN
--- NOTE | 2018-06-18 20:39 | P.PNNP ---
Subjective Interval history: Patient seen in the afternoon, remain on the vent. Physical Exam Vital signs: Vital Signs 06/17/18 20:53 06/17/18 21:00 06/17/18 22:00 Temperature 100.2 F H 100.2 F H 100.2 F H Pulse Rate 77 87 69 Respiratory Rate 21 Blood Pressure 109/53 L 121/60 99/53 L Pulse Oximetry 100 100 100 06/17/18 22:24 06/17/18 23:00 06/17/18 23:54 Temperature 100.2 F H 100.2 F H Pulse Rate 69 70 Respiratory Rate 27 H Blood Pressure 115/55 L 110/56 L Pulse Oximetry 100 100 100 06/18/18 00:00 06/18/18 01:00 06/18/18 01:36 Temperature 100.2 F H 100.2 F H 100.0 F H Pulse Rate 86 93 H 82 Respiratory Rate 24 Blood Pressure 129/60 128/61 Pulse Oximetry 100 100 95 06/18/18 02:00 06/18/18 03:00 06/18/18 03:09 Temperature 99.9 F H 100.0 F H Pulse Rate 81 87 Respiratory Rate 22 32 H Blood Pressure 123/58 L 141/63 H Pulse Oximetry 94 L 100 100 06/18/18 04:00 06/18/18 05:00 06/18/18 06:00 Temperature 100.8 F H 100.9 F H 100.6 F H Pulse Rate 88 81 83 Respiratory Rate 20 26 H Blood Pressure 133/61 130/60 127/61 Pulse Oximetry 100 100 100 06/18/18 07:00 06/18/18 08:00 06/18/18 08:05 Temperature 100.2 F H 100.0 F H Pulse Rate 90 87 Respiratory Rate 32 H Blood Pressure 134/63 136/68 Pulse Oximetry 100 100 100 06/18/18 09:00 06/18/18 10:00 06/18/18 11:00 Temperature 99.9 F H 99.7 F H 99.7 F H Pulse Rate 86 79 82 Respiratory Rate Blood Pressure 134/62 128/60 142/67 H Pulse Oximetry 100 100 100 06/18/18 11:33 06/18/18 12:00 06/18/18 13:00 Temperature 99.7 F H 99.5 F Pulse Rate 85 78 Respiratory Rate 27 H Blood Pressure 133/60 128/59 L Pulse Oximetry 98 99 100 06/18/18 14:00 06/18/18 15:00 06/18/18 16:00 Temperature 99.5 F 99.7 F H 99.7 F H Pulse Rate 79 78 75 Respiratory Rate Blood Pressure 130/61 125/58 L 117/58 L Pulse Oximetry 100 95 100 06/18/18 16:14 06/18/18 17:00 06/18/18 18:00 Temperature 99.5 F 99.3 F Pulse Rate 72 77 Respiratory Rate 27 H Blood Pressure 114/58 L 149/70 H Pulse Oximetry 100 100 100 06/18/18 19:43 Temperature Pulse Rate Respiratory Rate 21 Blood Pressure Pulse Oximetry 100 Intake & Output 06/18/18 06/18/18 06/19/18 06:59 18:59 06:59 Intake Total 625 / 625 3297.625 / 329.625 Output Total 2400 / 2400 2550 / 2550 Balance -393.375 / -393.375 747.625 / 747.625 Weight 131 kg Intake: IV 1214.625 / 5090.562 3969.625 / 2423.625 Sodium Chloride 23.4% Inj 38.5 1009.625 / 3382.773 5834.625 / 2018.625 MEQ In Sterile Water for Inj 1, 000 ML @ 100 mls/hr IV.CONT . Q10H6M JACOB Rx#:[id number] Teflaro Inj 300 MG In NS Inj 100 / 100 100 / 100 100 ML @ 100 mls/hr IV.SIG Q12H JACOB Rx#:[id number] Cubicin Inj 800 MG In NS Inj 100 / 100 100 ML @ 200 mls/hr IV.SIG Q24H JACOB Rx#:[id number] INVanz Inj 1,000 MG In NS Inj 100 / 100 100 ML @ 200 mls/hr IV.SIG Q24H JACOB Rx#:[id number] Keppra Inj 500 MG In NS Inj 100 105 / 105 105 / 105 ML @ 400 mls/hr IV.SIG Q12H JACOB Rx#:[id number] Tube Feeding 292 / 292 374 / 374 Water Bolus Amount 500 / 500 500 / 500 Output: Urine Amount (Catheter) 2400 / 2400 2550 / 2550 Indwelling Urethral Catheter 2400 / 2400 2550 / 2550 Other: Date of Last Bowel Movement 06/18/18 06/18/18 # Incontinent Bowel Movements 1 Narrative: GENERAL: Intubated. Does not open eyes, withdrawals to lower extremity stimulation. SKIN: Warm and dry. NECK: Supple, trachea midline. No JVD. CARDIOVASCULAR: Regular rate and rhythm without murmurs, gallops, or rubs. RESPIRATORY: Breath sounds equal bilaterally. No accessory muscle use. Orally intubated. GASTROINTESTINAL: Abdomen soft, non-tender, nondistended. Dobhoff tube in right nare GENITOURINARY: Indwelling [place] catheter. MUSCULOSKELETAL: No cyanosis, Bilateral weeping edema in upper extremities. TUAN left knee - Urinary Catheter Management Indwelling Urethral Catheter Cath placed during this visit: yes, but has since been removed by the nurse Urethral indwelling: Yes Reason for continuing: Hourly intake/output Insertion date: 06/15/18 Insertion time: 15:00 Removal date: 06/15/18 Removal time: 14:55 Assessment and Plan - Assessment (1) Acute kidney failure Code(s): N17.9 - Acute kidney failure, unspecified Status: Acute Plan: Patient with Acute kidney injury, Non oliguric, urine out put is adequate. BP is stable, Creatinine is almost same, now it is 2.5, stable. Continue Lasix, and follow the urine out put and BMP. Avoid Nephrotoxins, watch for renal recovery.
[2018-06-19] MEDS: Insulin NovoLIN Regular Correctional Sugar Inj SQ SCH ×4 (00:19→17:53)
[2018-06-19] MEDS: Oral Hygiene Kit OROPHARYNG SCH ×4 (01:13→16:39)
[2018-06-19] MEDS: Sodium Chloride 23.4% Inj 38.5 MEQ in Water for Inj, Sterile 1,000 ML IV.CONT SCH ×2 (01:20→03:27)
[2018-06-19] MEDS: Ceftaroline Inj 300 MG in Sodium Chlor 0.9% Inj 100 ML IV.SIG SCH ×2 (03:27→14:49)
[2018-06-19 04:57] LABS: Baso # (Auto) 0.1 th/mm3 (0.0-0.2); Baso % (Auto) 0.5 % (0.0-2.0); Eos # (Auto) 0.2 th/mm3 (0.0-0.4); Eos % (Auto) 1.6 % (0.0-4.0); Hematocrit 23.1 % (39.0-51.0); Hemoglobin 7.8 gm/dL (13.0-17.0); Lymph # (Auto) 1.3 th/mm3 (1.0-4.8); Lymph % (Auto) 12.8 % (9.0-44.0); Mean Corpuscular HGB Conc 33.8 % (32.0-36.0); Mean Corpuscular Hemoglobin 30.4 pg (27.0-34.0); Mean Corpuscular Volume 89.7 fL (80.0-100.0); Mean Platelet Volume 8.6 fL (7.0-11.0); Mono # (Auto) 0.8 th/mm3 (0.0-0.9); Mono % (Auto) 7.8 % (0.0-8.0); Neut # (Auto) 7.7 th/mm3 (1.8-7.7); Neut % (Auto) 77.3 % (16.0-70.0); Platelet Count 284 th/mm3 (150-450); Red Blood Count 2.57 mil/mm3 (4.50-5.90); Red Cell Distribution Width 15.7 % (11.6-17.2)
[2018-06-19 05:13] LABS: Calcium 8.2 mg/dL (8.5-10.1); Potassium 4.1 meq/L (3.5-5.1)
[2018-06-19] MEDS: Chlorhexidine 0.12% Oral Kit 15 ML UDC OROPHARYNG SCH ×2 (09:08→20:05)
[2018-06-19] MEDS: Fluconazole 100 MG Tablet PO SCH (09:08)
[2018-06-19] MEDS: Heparin - SQ 10,000 UNITS/ML Vial SQ SCH ×2 (09:12→20:05)
[2018-06-19] MEDS: Senna/Docusate Sodium 8.6/50 MG Tablet PO SCH ×2 (09:15→20:06)
[2018-06-19] MEDS: Famotidine PF Inj 20 MG/2 ML Vial IV.PUSH SCH ×2 (09:16→20:06)
--- NOTE | 2018-06-19 11:40 | P.PNNEU ---
Subjective Active Medications: Active Medications Acetaminophen (Tylenol) 650 mg PO Q6H PRN PRN Reason: PAIN 1-10 AND/OR FEVER >101F Last Admin: 06/17/18 13:42 Dose: 650 mg Al Hydroxide/Mg Hydroxide (Milk Of Magnfernando Liq) 30 ml PO Q12H PRN PRN Reason: Mild Constipation Last Admin: 06/12/18 18:52 Dose: 30 ml Albuterol (Duoneb Neb (Prn)) 1 ampul NEB Q2HR NEB PRN PRN Reason: WHEEZING Last Admin: 06/14/18 10:57 Dose: 1 ampul Bisacodyl (Dulcolax Supp) 10 mg RECTAL DAILY PRN PRN Reason: SEVERE CONSITIPATION Chlorhexidine Gluconate (Peridex 0.12% Oral Kit) 15 ml OROPHARYNG BID@0800, 2000 [facility] Last Admin: 06/19/18 09:08 Dose: 15 ml Clonidine HCl (Catapres) 0.1 mg PO Q6H PRN PRN Reason: SBP>160, DBP>90 Dextrose (D50w Vial) 50 ml IV.PUSH UNSCH PRN PRN Reason: PER HYPOGLYCEMIA PROTOCOL Famotidine (Pepcid Pf Inj) 10 mg IV.PUSH Q12HR [facility] Last Admin: 06/19/18 09:16 Dose: 10 mg Fluconazole (Diflucan) 100 mg PO DAILY [facility] Stop: 06/23/18 10:29 Last Admin: 06/19/18 09:08 Dose: 100 mg Furosemide (Lasix Inj) 40 mg IV.PUSH BID@0900,1800 [facility] Last Admin: 06/19/18 09:09 Dose: 40 mg Glucagon (Glucagon Inj) 1 mg OTHER PRN PRN PRN Reason: for Hypoglycemia Protocol Heparin Sodium (Porcine) (Heparin Inj) 5,000 units SQ Q12HR [facility] Last Admin: 06/19/18 09:12 Dose: 5,000 units Levetiracetam 500 mg/ Sodium (Chloride) 105 mls @ 400 mls/hr IV.SIG Q12H [facility] Last Infusion: 06/19/18 05:05 Dose: Infused Sodium Phosphate 30 mmol/ (Sodium Chloride) 260 mls @ 42 mls/hr IV.SIG UNSCH PRN PRN Reason: For Phosphorus < 2.5 mg/dL Norepinephrine Bitartrate (Levophed-Dextrose 4 Mg/250 Ml Drip) 4 mg in 250 mls @ 7.5 mls/hr IV.SIG TITRATE PRN; Protocol PRN Reason: Per Protocol Ertapenem 1,000 mg/ Sodium (Chloride) 100 mls @ 200 mls/hr IV.SIG Q24H [facility] Stop: 06/19/18 23:00 Last Infusion: 06/18/18 16:59 Dose: Infused Sodium Chloride 38.5 meq/ (Sterile Water) 1,009.625 mls @ 100 mls/hr IV.CONT .Q10H6M [facility] Last Admin: 06/19/18 03:27 Dose: Not Given Daptomycin 800 mg/ Sodium (Chloride) 100 mls @ 200 mls/hr IV.SIG Q24H [facility] Last Infusion: 06/18/18 15:19 Dose: Infused Ceftaroline Fosamil 300 mg/ (Sodium Chloride) 100 mls @ 100 mls/hr IV.SIG Q12H [facility] Last Infusion: 06/19/18 04:30 Dose: Infused Insulin Human Regular (Novolin R Correctional Sugar Inj) 0 units SQ Q6HR [facility]; Protocol Last Admin: 06/19/18 06:35 Dose: Not Given Labetalol HCl (Trandate Inj) 10 mg IV.PUSH Q2H PRN PRN Reason: BP > 140/90 Last Admin: 06/16/18 06:34 Dose: 10 mg Lactulose (Lactulose Liq) 30 ml PO DAILY PRN PRN Reason: SEVERE CONSITIPATION Last Admin: 06/14/18 00:55 Dose: 30 ml Miscellaneous Medication () 1 each OROPHARYNG 0000,0400,1200,1600 [facility] Last Admin: 06/19/18 04:47 Dose: 1 each Multi-Ingredient Ointment (Blistex Lip Randolph) 1 applic TOPICAL UNSCH PRN PRN Reason: FOR DRY LIPS Last Admin: 06/16/18 12:48 Dose: 1 applic Senna/Docusate Sodium (Shasha-Colace) 1 tab PO BID [facility] Last Admin: 06/19/18 09:15 Dose: Not Given Sennosides (Senokot) 17.2 mg PO Q12H PRN PRN Reason: Moderate Constipation Last Admin: 06/12/18 18:52 Dose: 17.2 mg Sodium Chloride (Ns Flush) 2 ml IV.FLUSH BID [facility] Last Admin: 06/19/18 09:14 Dose: 2 ml Sodium Chloride (Ns Flush) 2 ml IV.FLUSH PRN PRN PRN Reason: FLUSH AFTER USING IV ACCESS Last Admin: 06/12/18 20:08 Dose: 2 ml Sterile Water (Free Water) 250 ml G-TUBE Q8HR [facility] Last Admin: 06/19/18 05:53 Dose: 250 ml Terbutaline Sulfate (Brethine Inj) 1 mg SQ UNSCH PRN PRN Reason: For Extravasation Allergies/Adverse Reactions: Allergies Allergy/AdvReac Type Severity Reaction Status Date / Time No Known Allergies Allergy Verified 06/03/18 01:32 Physical Exam Vital signs: Vital Signs 06/18/18 12:00 06/18/18 13:00 06/18/18 14:00 Temperature 99.7 F H 99.5 F 99.5 F Pulse Rate 85 78 79 Respiratory Rate Blood Pressure 133/60 128/59 L 130/61 Pulse Oximetry 99 100 100 06/18/18 15:00 06/18/18 16:00 06/18/18 16:14 Temperature 99.7 F H 99.7 F H Pulse Rate 78 75 Respiratory Rate 27 H Blood Pressure 125/58 L 117/58 L Pulse Oximetry 95 100 100 06/18/18 17:00 06/18/18 18:00 06/18/18 19:00 Temperature 99.5 F 99.3 F 99.5 F Pulse Rate 72 77 68 Respiratory Rate Blood Pressure 114/58 L 149/70 H 124/58 L Pulse Oximetry 100 100 100 06/18/18 19:43 06/18/18 20:00 06/18/18 21:00 Temperature 98.4 F 99.5 F Pulse Rate 77 69 Respiratory Rate 21 Blood Pressure 125/60 122/59 L Pulse Oximetry 100 100 100 06/18/18 22:00 06/18/18 23:00 06/18/18 23:53 Temperature 99.3 F 99.3 F Pulse Rate 72 77 Respiratory Rate 26 H Blood Pressure 131/61 144/65 H Pulse Oximetry 100 100 06/19/18 00:00 06/19/18 01:00 06/19/18 02:00 Temperature 99.5 F 99.7 F H 99.5 F Pulse Rate 81 67 82 Respiratory Rate Blood Pressure 134/63 129/60 146/66 H Pulse Oximetry 100 100 100 06/19/18 03:00 06/19/18 04:00 06/19/18 04:31 Temperature 99.5 F 99.7 F H Pulse Rate 82 72 Respiratory Rate 28 H Blood Pressure 155/68 H 122/60 Pulse Oximetry 100 100 100 06/19/18 05:00 06/19/18 06:00 06/19/18 07:00 Temperature 99.7 F H 100.0 F H 100.4 F H Pulse Rate 84 79 83 Respiratory Rate Blood Pressure 145/65 H 142/66 H 136/62 Pulse Oximetry 100 100 100 06/19/18 07:52 06/19/18 08:00 06/19/18 09:00 Temperature 99.0 F 100.2 F H Pulse Rate 80 78 Respiratory Rate 25 H Blood Pressure 139/64 141/64 H Pulse Oximetry 100 100 100 06/19/18 10:00 06/19/18 11:00 Temperature 100.0 F H 100.0 F H Pulse Rate 90 77 Respiratory Rate Blood Pressure 153/68 H 134/63 Pulse Oximetry 100 100 Intake & Output 06/18/18 06/19/18 06/19/18 18:59 06:59 18:59 Intake Total 3297.625 / 3297.625 1938.625 / 1938.625 Output Total 2550 / 2550 2425 / 2425 Balance 747.625 / 747.625 -486.375 / -486.375 Weight 129.8 kg Intake: IV 2423.625 / 2423.625 1214.625 / 1214.625 Sodium Chloride 23.4% Inj 38.5 2017.625 / 2017.625 1009.625 / 1009.625 MEQ In Sterile Water for Inj 1, 000 ML @ 100 mls/hr IV.CONT . Q10H6M [facility] Rx#:[id number] Teflaro Inj 300 MG In NS Inj 100 / 100 100 / 100 100 ML @ 100 mls/hr IV.SIG Q12H [facility] Rx#:[id number] Cubicin Inj 800 MG In NS Inj 100 / 100 100 ML @ 200 mls/hr IV.SIG Q24H [facility] Rx#:[id number] INVanz Inj 1,000 MG In NS Inj 100 / 100 100 ML @ 200 mls/hr IV.SIG Q24H [facility] Rx#:[id number] Keppra Inj 500 MG In NS Inj 100 105 / 105 105 / 105 ML @ 400 mls/hr IV.SIG Q12H [facility] Rx#:[id number] Tube Feeding 374 / 374 324 / 324 Tube Irrigant 400 / 400 Water Bolus Amount 500 / 500 Output: Urine Amount (Catheter) 2550 / 2550 2425 / 2425 Indwelling Urethral Catheter 2550 / 2550 2425 / 2425 Other: Date of Last Bowel Movement 06/18/18 06/19/18 06/19/18 # Incontinent Bowel Movements 6 Narrative: much more alert moving left arm some > rue looked at me and seemed to rxt threat - Urinary Catheter Management Indwelling Urethral Catheter Cath placed during this visit: yes, but has since been removed by the nurse Urethral indwelling: Yes Reason for continuing: Hourly intake/output Insertion date: 06/15/18 Insertion time: 15:00 Removal date: 06/15/18 Removal time: 14:55 Objective Laboratory Results - last 24 hr 06/18/18 06/18/18 06/19/18 11:38 17:11 00:04 WBC RBC Hgb Hct MCV MCH MCHC RDW Plt Count MPV Neut % (Auto) Lymph % (Auto) Gillespie % (Auto) Eos % (Auto) Baso % (Auto) Neut # (Auto) Lymph # (Auto) Gillespie # (Auto) Eos # (Auto) Baso # (Auto) WBC Differential Differential Comment Sodium Potassium Chloride Carbon Dioxide Anion Gap BUN Creatinine Estimated GFR POC Glucose 185 H 158 H 151 H Random Glucose Calcium 06/19/18 06/19/18 06/19/18 04:30 04:30 06:09 WBC 10.0 RBC 2.57 L Hgb 7.8 L Hct 23.1 L MCV 89.7 MCH 30.4 MCHC 33.8 RDW 15.7 Plt Count 284 MPV 8.6 Neut % (Auto) 77.3 H Lymph % (Auto) 12.8 Gillespie % (Auto) 7.8 Eos % (Auto) 1.6 Baso % (Auto) 0.5 Neut # (Auto) 7.7 Lymph # (Auto) 1.3 Gillespie # (Auto) 0.8 Eos # (Auto) 0.2 Baso # (Auto) 0.1 WBC Differential . Differential Comment Auto diff final Sodium 145 Potassium 4.1 Chloride 114 H Carbon Dioxide 22.0 Anion Gap 9 BUN 79 H Creatinine 2.41 H Estimated GFR 27 L POC Glucose 147 H Random Glucose 147 H Calcium 8.2 L Microbiology 06/18/18 06:08 Aerobic Blood Culture - Preliminary Blood - Peripheral No growth in 1 day Anaerobic Blood Culture - Preliminary No growth in 1 day 06/16/18 05:53 Aerobic Blood Culture - Final Blood - Peripheral S. aureus MRSA Anaerobic Blood Culture - Preliminary No growth in 3 days 06/15/18 13:50 Aerobic Blood Culture - Final Blood - Peripheral S. aureus MRSA Anaerobic Blood Culture - Final S. aureus MRSA 06/13/18 18:50 Aerobic Blood Culture - Final Blood - Peripheral S. aureus MRSA Anaerobic Blood Culture - Final No growth in 5 days 06/13/18 19:00 Aerobic Blood Culture - Final Blood - Peripheral S. aureus MRSA Anaerobic Blood Culture - Final No growth in 5 days Review/Management - Review/Management Plan: imp mult small cva suspect endocarditis if any afib found should anticoag will observe eeg neg b12 and trop nl 06/19/18 looks much better slowly neuro improved asa juan sr so far ac to nurse
[2018-06-19] MEDS: DAPTOmycin Inj 800 MG in Sodium Chlor 0.9% Inj 100 ML IV.SIG SCH (12:43)
--- NOTE | 2018-06-19 13:41 | P.PNCC ---
Subjective Subjective Remarks/Hospital Course: 06/03: Patient is a 68-year-old male with past medical history significant for type 2 diabetes, hypertension, morbid obesity who presented to the [facility] emergency department with weakness and slurred speech. Symptoms present for 2 days, apparently he was found on the floor of his mobile home. He was noted to have high fever at the [facility] his WBC count was 21.3 UA was positive. His sodium was 134 BUN 50 with a creatinine of 2.33 bicarb was 16 lactic acid was 6.8. CPK more than 3000 at the outside hospital. A CT of the head showed focal hemorrhage into the right quadrigeminal plate cistern. Dr. Hopkins was contacted who accepted the patient and requested admission to critical care. Patient was accepted to [facility] at [place] Dr. Deluca evaluated the patient in the [facility], he is lying in the bed. Slightly tachypneic moderate distress. Patient is oriented to place and person. CT of the head repeated here at [place] showed hemorrhage along the posterior aspect of the brainstem measuring up to 2.8 cm in maximal diameter. Mild mass effect on the brainstem. No hydrocephalus. I have started the patient on Cardene infusion for tight blood pressure control. Zosyn for UTI. 2% saline will be started to keep sodium above 150. Avoid mannitol due to renal failure. Keppra for seizure prophylaxis. I am unable to find coags but platelet count was normal. 06/04: MRSA bacteremia ob blood cultures drawn on admission. Currently on precedex, on room air. Awake, follows commands, speech, unintelligible. Started on IV vanc. ID consulted as concern for septic emboli/ endocarditis as cause for brainstem bleed. 06/05: 48 hours following a mid brain spontaneous hemorrhage complicated by numerous MRSA blood cultures. Blood pressure acceptably well controlled. Fever pattern persists. Patient tolerating extubation and protecting airway adequately. Taper completely off Precedex. Serum osmolality acceptably concentrated. 06/06: Serum osmolality acceptable, will allow sodium to drift back into the lower 150s now. Patient is alert and interactive. He moves 4 limbs spontaneously. Episodic fevers to 102+. We will continue with infectious disease workup for source of bacteremia. Endocarditis remains high on the list of possibilities. 06/07: Awake, alert, following commands. Speech very slurred however responds appropriately. Slight disorientation. Thought he was in [place]. Knows he is in the hospital. Complains of back pain. 06/08: Drowsy, arousable, tachypneic. Sodium up to 163, started on D5W and free water. Creatinine up. Tolerating tube feeds. Awaiting MRI. Will need LAURIE. Will need intubation probably for airway and in order to transport for MRI and LAURIE. 06/09: Patient intubated and placed on mechanical ventilation on 06/09. Dr. Hopkins has cleared patient for LAURIE/anticoagulation/valve surgery if needed. We are awaiting LAURIE for further evaluation of MRSA bacteremia by cardiology to determine source. Orthopedics evaluating left knee synovitis/effusion/meniscal tear. 06/10: Underwent aspiration of the left knee yesterday which is growing MRSA. Remains sedated, orally intubated on mechanical ventilation. Underwent LAURIE today which did not reveal any vegetation. Being followed by orthopedics/ID/ neurosurgery. 06/11: Remains orally intubated on mechanical ventilation. Scheduled for OR for left knee septic arthritis with Dr. Carlson. 06/12: Remains orally intubated on mechanical ventilation. Waiting for OR for left knee septic arthritis with Dr. Carlson 06/13: Remains intubated sedated. On sedation hold localizes to pain. Status post left knee lateral arthrotomy with irrigation and debridement. Fluid culture growing MRSA 06/14: Remains intubated sedated. On sedation hold now not waking up or following commands weakly withdraws extremities. WBC count increasing. Sodium coming down with hypotonic saline. 06/15: All sedation now held more than 36 hours. No significant improvement in mentation. Spontaneously moving upper extremity withdraws lowers to pain. CT of the head yesterday essentially unchanged with resolution of previously seen subarachnoid hemorrhage in the basal cisterns 06/16: Failed CPAP after 20 minutes this morning due to erratic and rapid respiratory effort. Opens eyes with movement but does not focus or track. 06/17: We will need to discuss tracheostomy with his son this morning. No improvement in neurologic function overnight. Continues to fail efforts at spontaneous breathing trials. Hypokalemia needs gingerly replacement this morning. 06/18: No improvement in neurologic function. Basically remains largely unresponsive aside from occasional eye-opening to noxious stimulation. Persistent positive bloodstream cultures. Dependent on mechanical ventilation. 06/19: Little improvement if any in neurologic function. Unable to wean from mechanical ventilation. Continue to hold all sedation and pain medication. Objective Vital Signs / I&O: Vital Signs 06/18/18 14:00 06/18/18 15:00 06/18/18 16:00 Temperature 99.5 F 99.7 F H 99.7 F H Pulse Rate 79 78 75 Respiratory Rate Blood Pressure 130/61 125/58 L 117/58 L Pulse Oximetry 100 95 100 06/18/18 16:14 06/18/18 17:00 06/18/18 18:00 Temperature 99.5 F 99.3 F Pulse Rate 72 77 Respiratory Rate 27 H Blood Pressure 114/58 L 149/70 H Pulse Oximetry 100 100 100 06/18/18 19:00 06/18/18 19:43 06/18/18 20:00 Temperature 99.5 F 98.4 F Pulse Rate 68 77 Respiratory Rate 21 Blood Pressure 124/58 L 125/60 Pulse Oximetry 100 100 100 06/18/18 21:00 06/18/18 22:00 06/18/18 23:00 Temperature 99.5 F 99.3 F 99.3 F Pulse Rate 69 72 77 Respiratory Rate Blood Pressure 122/59 L 131/61 144/65 H Pulse Oximetry 100 100 100 06/18/18 23:53 06/19/18 00:00 06/19/18 01:00 Temperature 99.5 F 99.7 F H Pulse Rate 81 67 Respiratory Rate 26 H Blood Pressure 134/63 129/60 Pulse Oximetry 100 100 06/19/18 02:00 06/19/18 03:00 06/19/18 04:00 Temperature 99.5 F 99.5 F 99.7 F H Pulse Rate 82 82 72 Respiratory Rate Blood Pressure 146/66 H 155/68 H 122/60 Pulse Oximetry 100 100 100 06/19/18 04:31 06/19/18 05:00 06/19/18 06:00 Temperature 99.7 F H 100.0 F H Pulse Rate 84 79 Respiratory Rate 28 H Blood Pressure 145/65 H 142/66 H Pulse Oximetry 100 100 100 06/19/18 07:00 06/19/18 07:52 06/19/18 08:00 Temperature 100.4 F H 99.0 F Pulse Rate 83 80 Respiratory Rate 25 H Blood Pressure 136/62 139/64 Pulse Oximetry 100 100 100 06/19/18 09:00 06/19/18 10:00 06/19/18 11:00 Temperature 100.2 F H 100.0 F H 100.0 F H Pulse Rate 78 90 77 Respiratory Rate Blood Pressure 141/64 H 153/68 H 134/63 Pulse Oximetry 100 100 100 06/19/18 11:54 06/19/18 12:00 06/19/18 13:00 Temperature 99.9 F H 100.2 F H Pulse Rate 76 74 Respiratory Rate 27 H Blood Pressure 142/68 H 128/58 L Pulse Oximetry 100 100 100 Intake & Output 06/18/18 06/19/18 06/19/18 18:59 06:59 18:59 Intake Total 3297.625 / 3297.625 1938.625 / 1938.625 Output Total 2550 / 2550 2425 / 2425 Balance 747.625 / 747.625 -486.375 / -486.375 Weight 129.8 kg Intake: IV 2423.625 / 2423.625 1214.625 / 1214.625 Sodium Chloride 23.4% Inj 38.5 2017.625 / 2017.625 1009.625 / 1009.625 MEQ In Sterile Water for Inj 1, 000 ML @ 100 mls/hr IV.CONT . Q10H6M [facility] Rx#:[id number] Teflaro Inj 300 MG In NS Inj 100 / 100 100 / 100 100 ML @ 100 mls/hr IV.SIG Q12H [facility] Rx#:[id number] Cubicin Inj 800 MG In NS Inj 100 / 100 100 ML @ 200 mls/hr IV.SIG Q24H [facility] Rx#:[id number] INVanz Inj 1,000 MG In NS Inj 100 / 100 100 ML @ 200 mls/hr IV.SIG Q24H [facility] Rx#:[id number] Keppra Inj 500 MG In NS Inj 100 105 / 105 105 / 105 ML @ 400 mls/hr IV.SIG Q12H [facility] Rx#:[id number] Tube Feeding 374 / 374 324 / 324 Tube Irrigant 400 / 400 Water Bolus Amount 500 / 500 Output: Urine Amount (Catheter) 2550 / 2550 2425 / 2425 Indwelling Urethral Catheter 2550 / 2550 2425 / 2425 Other: Date of Last Bowel Movement 06/18/18 06/19/18 06/19/18 # Incontinent Bowel Movements 6 Result Diagrams: 06/19/18 04:30 06/19/18 04:30 Objective Remarks: GENERAL: Ill appearing 68-year-old male, largely unresponsive HEAD: Atraumatic. Normocephalic. EYES: Pupils equal and round. No conjunctival icterus. ENT: No nasal bleeding or discharge. Orotracheal intubation. CARDIOVASCULAR: Normal S1-S2. No murmurs, rubs. Regular rate and rhythm. No JVD. RESPIRATORY: Few persistent scattered rhonchi, acceptable excursions on mechanical ventilation. No wheezes. Strong cough when suctioned GASTROINTESTINAL: Abdomen soft, non-tender, nondistended. BS present. No guarding. MUSCULOSKELETAL: Warm, well perfused. Left knee Hemovac drain in place. NEUROLOGICAL: Encephalopathic, orally intubated, Pupils equal 2 mm, reactive. Patient localizes to pain with LUE, minimally withdraws the lower extremities. Opens eyes but does not focus or track. Assessment and Plan - Problem List (1) 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 Status: Acute (2) Encephalopathy acute Code(s): G93.40 - Encephalopathy, unspecified Status: Acute (3) Acute kidney failure Code(s): N17.9 - Acute kidney failure, unspecified Status: Acute (4) Severe sepsis Code(s): A41.9 - Sepsis, unspecified organism; R65.20 - Severe sepsis without septic shock Status: Acute (5) Metabolic acidemia Code(s): E87.2 - Acidosis Status: Acute (6) UTI (urinary tract infection) Code(s): N39.0 - Urinary tract infection, site not specified Status: Acute (7) Lactic acidosis Code(s): E87.2 - Acidosis Status: Acute (8) Rhabdomyolysis Code(s): M62.82 - Rhabdomyolysis Status: Acute (9) Obesity Code(s): E66.9 - Obesity, unspecified Status: Chronic (10) Hypertension Code(s): I10 - Essential (primary) hypertension Status: Chronic (11) Diabetes Code(s): E11.9 - Type 2 diabetes mellitus without complications Status: Chronic - Assessment and Plan Plan: NEURO: Brainstem hemorrhage measuring up to 2.8 cm in maximal diameter, mild mass effect Metabolic encephalopathy -Repeat CT 06/14: Subarachnoid hemorrhage in the basal cisterns as resolved. -EEG done yesterday 06/14/2018 shows moderate encephalopathy -Neurosurgery Dr. Hopkins -Currently on free water/1/2 NS for hypernatremia -Close neuro monitoring. Prev MRI/MRA brain results noted -Head CT 06/08 shows resolving brainstem hemorrhage. -Keppra for seizure prophylaxis -Discontinue all sedation DC propofol, Precedex, Fentanyl -With MRSA bacteremia suspect septic emboli with mycotic aneurism vs hypertensive bleed. -MRI spine reviewed, no evidence of epidural abscess -MRI head with numerous small ischemic infarcts, embolic in appearance -Continues largely unresponsive 06/18/18 RESP: Acute respiratory failure on mechanical ventilation Past smoking -DuoNeb every as needed -Continue mechanical ventilation, vent bundle, bronchodilators as needed -Daily CPAP trials. -Mental status will not permit extubation -Intubated on 06/08/2018, vent day 12 patient, will need tracheostomy. CV: Lactic acidemia Hypotension History of hypertension -Initial lactic acid at the outside hospital was 6.8 -Resuscitated with normal saline IV fluids, transthoracic echo -Half NS due to hypernatremia -Cardiology Dr. Odonnell consulted to perform LAURIE to evaluate for endocarditis - no vegetations seen -LAURIE 06/10 negative for any vegetations. GI: -NG tube in place. Tube feeds and advance to goal as tolerated. : Acute kidney injury Rhabdomyolysis -Monitor renal function closely. Replace Hays catheter due to candiduria, repeat culture -Strict intake output, monitor and replete electrolytes. -Nephrology following for rising creatinine-suspect multifactorial secondary to sepsis/vancomycin/gentamicin toxicity/IV contrast exposure. -Replace electrolyte losses. ID: Severe sepsis ESBL E. coli UTI MRSA bacteremia MRSA left knee septic arthritis -On Cubicin. Cefepime changed to Invanz on 06/10 for ESBL E. coli in urine culture -Status post left knee lateral arthrotomy with irrigation and debridement. Fluid culture growing MRSA -s/p MRI left knee due to swelling -orthopedics performed left knee aspiration on 06/09 with drainage of 60 cc of purulent cloudy fluid which is growing MRSA. -Vancomycin and gentamicin discontinued on 06/08 per ID due to worsening renal function. Blood cultures positive for MRSA (10/07) - ID Dr. Rodriguez -LAURIE negative for vegetation on 06/10 -Ortho following and to decide further management for left knee septic arthritis - HEME: Leukocytosis secondary to sepsis -Monitor CBC, coags ENDO: Type 2 diabetes -Sliding scale insulin -Basal long-acting insulin PROPH: -Bilateral lower extremity SCDs. IV famotidine. Subcutaneous heparin for DVT prophylaxis LINES: -Utilize peripheral IVs, central line if needed Overall impression: Blood pressure control remains problematic and will need additional scheduled medication. Agitation appears better controlled. Bacteremia remains persistent and possibly life-threatening problem. Neurologic status poor and unstable. 06/08: D/W Dr. Hopkins. called patient's son Abraham Bautista at [phone] and updated him regarding current clinical status and plan to intubate and place on [facility] ventilation due to concern regarding airway protection and in order to safely get imaging and possibly LAURIE and he voiced understanding and was agreeable. Will call again today 06/19: We continue to touch base with Abraham Bautista, the patient's son in [place]. I have expressed the poor prognosis to the son but he does not anticipate getting down here until after [place]. I encouraged him and his aunt to come down right away if they can so that we can make some formal decisions about Ezra's long-term care. (1) Brain stem hemorrhage Qualifiers: Intracerebral hemorrhage etiology: nontraumatic
--- NOTE | 2018-06-19 14:20 | P.PNNP ---
Subjective Interval history: Remains on ventilator. Eyes open. Low grade temperature. Creatinine continues to improve at 2.4, good urinary output. <Azul Lam - Last Filed: 06/19/18 14:17> Physical Exam Vital signs: Vital Signs 06/18/18 15:00 06/18/18 16:00 06/18/18 16:14 Temperature 99.7 F H 99.7 F H Pulse Rate 78 75 Respiratory Rate 27 H Blood Pressure 125/58 L 117/58 L Pulse Oximetry 95 100 100 06/18/18 17:00 06/18/18 18:00 06/18/18 19:00 Temperature 99.5 F 99.3 F 99.5 F Pulse Rate 72 77 68 Respiratory Rate Blood Pressure 114/58 L 149/70 H 124/58 L Pulse Oximetry 100 100 100 06/18/18 19:43 06/18/18 20:00 06/18/18 21:00 Temperature 98.4 F 99.5 F Pulse Rate 77 69 Respiratory Rate 21 Blood Pressure 125/60 122/59 L Pulse Oximetry 100 100 100 06/18/18 22:00 06/18/18 23:00 06/18/18 23:53 Temperature 99.3 F 99.3 F Pulse Rate 72 77 Respiratory Rate 26 H Blood Pressure 131/61 144/65 H Pulse Oximetry 100 100 06/19/18 00:00 06/19/18 01:00 06/19/18 02:00 Temperature 99.5 F 99.7 F H 99.5 F Pulse Rate 81 67 82 Respiratory Rate Blood Pressure 134/63 129/60 146/66 H Pulse Oximetry 100 100 100 06/19/18 03:00 06/19/18 04:00 06/19/18 04:31 Temperature 99.5 F 99.7 F H Pulse Rate 82 72 Respiratory Rate 28 H Blood Pressure 155/68 H 122/60 Pulse Oximetry 100 100 100 06/19/18 05:00 06/19/18 06:00 06/19/18 07:00 Temperature 99.7 F H 100.0 F H 100.4 F H Pulse Rate 84 79 83 Respiratory Rate Blood Pressure 145/65 H 142/66 H 136/62 Pulse Oximetry 100 100 100 06/19/18 07:52 06/19/18 08:00 06/19/18 09:00 Temperature 99.0 F 100.2 F H Pulse Rate 80 78 Respiratory Rate 25 H Blood Pressure 139/64 141/64 H Pulse Oximetry 100 100 100 06/19/18 10:00 06/19/18 11:00 06/19/18 11:54 Temperature 100.0 F H 100.0 F H Pulse Rate 90 77 Respiratory Rate 27 H Blood Pressure 153/68 H 134/63 Pulse Oximetry 100 100 100 06/19/18 12:00 06/19/18 13:00 Temperature 99.9 F H 100.2 F H Pulse Rate 76 74 Respiratory Rate Blood Pressure 142/68 H 128/58 L Pulse Oximetry 100 100 Intake & Output 06/18/18 06/19/18 06/19/18 18:59 06:59 18:59 Intake Total 3297.625 / 3297.625 1938.625 / 1938.625 Output Total 2550 / 2550 2425 / 2425 Balance 747.625 / 747.625 -486.375 / -486.375 Weight 129.8 kg Intake: IV 2423.625 / 2423.625 1214.625 / 1214.625 Sodium Chloride 23.4% Inj 38.5 625 / 2017.625 1009.625 / 1009.625 MEQ In Sterile Water for Inj 1, 000 ML @ 100 mls/hr IV.CONT . Q10H6M [facility] Rx#:[id number] Teflaro Inj 300 MG In NS Inj 100 / 100 100 / 100 100 ML @ 100 mls/hr IV.SIG Q12H [facility] Rx#:[id number] Cubicin Inj 800 MG In NS Inj 100 / 100 100 ML @ 200 mls/hr IV.SIG Q24H [facility] Rx#:[id number] INVanz Inj 1,000 MG In NS Inj 100 / 100 100 ML @ 200 mls/hr IV.SIG Q24H [facility] Rx#:[id number] Keppra Inj 500 MG In NS Inj 100 105 / 105 105 / 105 ML @ 400 mls/hr IV.SIG Q12H [facility] Rx#:[id number] Tube Feeding 374 / 374 324 / 324 Tube Irrigant 400 / 400 Water Bolus Amount 500 / 500 Output: Urine Amount (Catheter) 2550 / 2550 2425 / 2425 Indwelling Urethral Catheter 2550 / 2550 2425 / 2425 Other: Date of Last Bowel Movement 06/18/18 06/19/1818 # Incontinent Bowel Movements 6 Narrative: GENERAL: Alert opens eyes appears to command SKIN: Warm and dry. NECK: Supple, trachea midline. No JVD. CARDIOVASCULAR: Regular rate and rhythm without murmurs, gallops, or rubs. RESPIRATORY: Breath sounds equal bilaterally. No accessory muscle use. GASTROINTESTINAL: Abdomen soft, non-tender, nondistended. MUSCULOSKELETAL: No cyanosis, upper extremity edema, improving. - Urinary Catheter Management Indwelling Urethral Catheter Cath placed during this visit: yes, but has since been removed by the nurse Urethral indwelling: Yes Reason for continuing: Hourly intake/output Insertion date: 06/15/18 Insertion time: 15:00 Removal date: 06/15/18 Removal time: 14:55 <Azul Lam - Last Filed: 06/19/18 14:17> Vital signs: Vital Signs 06/18/18 22:00 06/18/18 23:00 06/18/18 23:53 Temperature 99.3 F 99.3 F Pulse Rate 72 77 Respiratory Rate 26 H Blood Pressure 131/61 144/65 H Pulse Oximetry 100 100 06/19/18 00:00 06/19/18 01:00 06/19/18 02:00 Temperature 99.5 F 99.7 F H 99.5 F Pulse Rate 81 67 82 Respiratory Rate Blood Pressure 134/63 129/60 146/66 H Pulse Oximetry 100 100 100 06/19/18 03:00 06/19/18 04:00 06/19/18 04:31 Temperature 99.5 F 99.7 F H Pulse Rate 82 72 Respiratory Rate 28 H Blood Pressure 155/68 H 122/60 Pulse Oximetry 100 100 100 06/19/18 05:00 06/19/18 06:00 06/19/18 07:00 Temperature 99.7 F H 100.0 F H 100.4 F H Pulse Rate 84 79 83 Respiratory Rate Blood Pressure 145/65 H 142/66 H 136/62 Pulse Oximetry 100 100 100 06/19/18 07:52 06/19/18 08:00 06/19/18 09:00 Temperature 99.0 F 100.2 F H Pulse Rate 80 78 Respiratory Rate 25 H Blood Pressure 139/64 141/64 H Pulse Oximetry 100 100 100 06/19/18 10:00 06/19/18 11:00 06/19/18 11:54 Temperature 100.0 F H 100.0 F H Pulse Rate 90 77 Respiratory Rate 27 H Blood Pressure 153/68 H 134/63 Pulse Oximetry 100 100 100 06/19/18 12:00 06/19/18 13:00 06/19/18 14:00 Temperature 99.9 F H 100.2 F H 99.6 F Pulse Rate 76 74 94 H Respiratory Rate Blood Pressure 142/68 H 128/58 L 160/70 H Pulse Oximetry 100 100 100 06/19/18 15:00 06/19/18 15:57 06/19/18 16:00 Temperature 100.2 F H 100.6 F H Pulse Rate 93 H 69 Respiratory Rate 26 H Blood Pressure 152/67 H 109/56 L Pulse Oximetry 100 100 100 06/19/18 17:00 06/19/18 18:00 06/19/18 19:55 Temperature 100.4 F H 100.8 F H Pulse Rate 81 72 Respiratory Rate 25 H Blood Pressure 156/74 H 146/66 H Pulse Oximetry 100 100 100 Intake & Output 06/19/18 06/19/18 06/20/18 06:59 18:59 06:59 Intake Total 1938.625 / 0616.951 5162.625 / 2441.625 Output Total 2425 / 2425 2245 / 2245 Balance -486.375 / -486.375 196.625 / 196.625 Weight 129.8 kg Intake: IV 1214.625 / 0680.482 6095.625 / 1414.625 Sodium Chloride 23.4% Inj 38.5 1009.625 / 6830.940 6726.625 / 1009.625 MEQ In Sterile Water for Inj 1, 000 ML @ 100 mls/hr IV.CONT . Q10H6M [facility] Rx#:[id number] Teflaro Inj 300 MG In NS Inj 100 / 100 100 / 100 100 ML @ 100 mls/hr IV.SIG Q12H [facility] Rx#:[id number] Cubicin Inj 800 MG In NS Inj 100 / 100 100 ML @ 200 mls/hr IV.SIG Q24H [facility] Rx#:[id number] INVanz Inj 1,000 MG In NS Inj 100 / 100 100 ML @ 200 mls/hr IV.SIG Q24H [facility] Rx#:[id number] Keppra Inj 500 MG In NS Inj 100 105 / 105 105 / 105 ML @ 400 mls/hr IV.SIG Q12H [facility] Rx#:[id number] Tube Feeding 324 / 324 277 / 277 Tube Irrigant 400 / 400 750 / 750 Output: Urine Amount (Catheter) 2425 / 2425 2245 / 2245 Indwelling Urethral Catheter 2425 / 2425 2245 / 2245 Other: Date of Last Bowel Movement 06/19/18 06/19/18 # Incontinent Bowel Movements 6 0 - Urinary Catheter Management Indwelling Urethral Catheter Cath placed during this visit: no <Aurelia Powell - Last Filed: 06/19/18 21:19> Assessment and Plan - Assessment (1) Acute kidney failure Code(s): N17.9 - Acute kidney failure, unspecified Status: Acute Plan: Patient with Acute kidney injury, Creatinine started to increase on the 4th at 2.86. NIKKI with FeNA at 2.35 suggestive of ATN possibly from sepsis or contrast nephropathy. AIN in differential also with vancomycin/gentamicin levels elevated on the 4th. Creatinine at 2.41, Non oliguric, urine out put is adequate. Continue Lasix, and follow the urine out put and BMP. Avoid Nephrotoxins, watch for renal recovery. <Azul Lam - Last Filed: 06/19/18 14:17> - Assessment (1) Acute kidney failure Code(s): N17.9 - Acute kidney failure, unspecified Status: Acute Plan: Patient seen and examined, agree with above. Creatinine is slightly better at 2.4, non oliguric. Off sedation, not much improvement in encephalopathy. <Aurelia Powell - Last Filed: 06/19/18 21:19>
--- NOTE | 2018-06-19 15:52 | P.PNID ---
Subjective Remarks: Patient is a 68-year-old male, brought into the hospital initially at [facility] for evaluation of weakness and slurred speech. It apparently has been present for several days. He was found on the floor of his mobile home. At [facility] he was found to be febrile, WBC up to 21,000, urinalysis with pyuria, creatinine 2.33, and lactic acid was elevated. CT of the head showed focal hemorrhage in the posterior fossa. Patient was transferred to [facility] for neurosurgical evaluation. Patient since admission has had elevated temperature. His blood cultures done on admission are now reported as growing gram-positive cocci, MRSA. His urine culture is also growing MRSA. On evaluation in the intensive care unit, he is awake, and interactive. He looks slightly tachypneic at rest and and on nasal O2. He has some confusion but mostly his oriented. His chest x-ray is normal. Echo is showing calcification in the aortic valve. No vegetations seen. Infectious disease consultation has been requested to assist with evaluation and treatment of patient with MRSA bacteremia. Notes reviewed Temps low grade BP ok On the vent Not on sedation, not waking up Moves both feet when touched Last (+) BC 06/16 MRI R knee noted Had I and D L knee 06/12 LAURIE no vegetation seen No rash No diarrhea MRI spine ok CT A/P no abscess Antibiotics: Cubicin Teflaro Invanz - to finish today Diflucan Lines: PIV Past Medical History: Diabetes History of MRSA infection Onset Date: ~06/03/18 Hypertension Obesity UTI (urinary tract infection) Allergies/Adverse Reactions: Allergies No Known Allergies Allergy (Verified 06/03/18 01:32) Objective Vital Signs 06/18/18 16:00 06/18/18 16:14 06/18/18 17:00 Temperature 99.7 F H 99.5 F Pulse Rate 75 72 Respiratory Rate 27 H Blood Pressure 117/58 L 114/58 L Pulse Oximetry 100 100 100 06/18/18 18:00 06/18/18 19:00 06/18/18 19:43 Temperature 99.3 F 99.5 F Pulse Rate 77 68 Respiratory Rate 21 Blood Pressure 149/70 H 124/58 L Pulse Oximetry 100 100 100 06/18/18 20:00 06/18/18 21:00 06/18/18 22:00 Temperature 98.4 F 99.5 F 99.3 F Pulse Rate 77 69 72 Respiratory Rate Blood Pressure 125/60 122/59 L 131/61 Pulse Oximetry 100 100 100 06/18/18 23:00 06/18/18 23:53 06/19/18 00:00 Temperature 99.3 F 99.5 F Pulse Rate 77 81 Respiratory Rate 26 H Blood Pressure 144/65 H 134/63 Pulse Oximetry 100 100 06/19/18 01:00 06/19/18 02:00 06/19/18 03:00 Temperature 99.7 F H 99.5 F 99.5 F Pulse Rate 67 82 82 Respiratory Rate Blood Pressure 129/60 146/66 H 155/68 H Pulse Oximetry 100 100 100 06/19/18 04:00 06/19/18 04:31 06/19/18 05:00 Temperature 99.7 F H 99.7 F H Pulse Rate 72 84 Respiratory Rate 28 H Blood Pressure 122/60 145/65 H Pulse Oximetry 100 100 100 06/19/18 06:00 06/19/18 07:00 06/19/18 07:52 Temperature 100.0 F H 100.4 F H Pulse Rate 79 83 Respiratory Rate 25 H Blood Pressure 142/66 H 136/62 Pulse Oximetry 100 100 100 06/19/18 08:00 06/19/18 09:00 06/19/18 10:00 Temperature 99.0 F 100.2 F H 100.0 F H Pulse Rate 80 78 90 Respiratory Rate Blood Pressure 139/64 141/64 H 153/68 H Pulse Oximetry 100 100 100 06/19/18 11:00 06/19/18 11:54 06/19/18 12:00 Temperature 100.0 F H 99.9 F H Pulse Rate 77 76 Respiratory Rate 27 H Blood Pressure 134/63 142/68 H Pulse Oximetry 100 100 100 06/19/18 13:00 Temperature 100.2 F H Pulse Rate 74 Respiratory Rate Blood Pressure 128/58 L Pulse Oximetry 100 Intake & Output 06/18/18 06/19/18 06/19/18 18:59 06:59 18:59 Intake Total 3297.625 / 3297.625 1938.625 / 5739.455 9574.625 / 1209.625 Output Total 2550 / 2550 2425 / 2425 Balance 747.625 / 747.625 -486.375 / -060.086 2753.625 / 1209.625 Weight 129.8 kg Intake: IV 2423.625 / 2423.625 1214.625 / 3561.805 0305.625 / 1209.625 Sodium Chloride 23.4% Inj 38.5 / 1009.625 / 7300.187 8421.625 / 1009.625 MEQ In Sterile Water for Inj 1, 000 ML @ 100 mls/hr IV.CONT . Q10H6M [facility] Rx#:[id number] Teflaro Inj 300 MG In NS Inj 100 / 100 100 / 100 100 ML @ 100 mls/hr IV.SIG Q12H [facility] Rx#:[id number] Cubicin Inj 800 MG In NS Inj 100 / 100 100 / 100 100 ML @ 200 mls/hr IV.SIG Q24H [facility] Rx#:[id number] INVanz Inj 1,000 MG In NS Inj 100 / 100 100 / 100 100 ML @ 200 mls/hr IV.SIG Q24H [facility] Rx#:[id number] Keppra Inj 500 MG In NS Inj 100 105 / 105 105 / 105 ML @ 400 mls/hr IV.SIG Q12H [facility] Rx#:[id number] Tube Feeding 374 / 374 324 / 324 Tube Irrigant 400 / 400 Water Bolus Amount 500 / 500 Output: Urine Amount (Catheter) 2550 / 2550 2425 / 2425 Indwelling Urethral Catheter 2550 / 2550 2425 / 2425 Other: Date of Last Bowel Movement 06/18/18 06/19/18 06/19/18 # Incontinent Bowel Movements 6 06/12/18 13:10 Other Fungal Smear - Final No fungal elements seen 06/12/18 13:10 Other Fungal Culture - Preliminary No growth in 1 week 06/12/18 13:10 Other Acid Fast Bacilli Smear - Final No acid fast bacilli seen 06/12/18 13:10 Other Mycobacterial Culture - Preliminary No growth in 1 week 06/12/18 13:09 Tissue - Knee Fungal Smear - Final No fungal elements seen 06/12/18 13:09 Tissue - Knee Fungal Culture - Preliminary No growth in 1 week 06/12/18 13:09 Tissue - Knee Acid Fast Bacilli Smear - Final No acid fast bacilli seen 06/12/18 13:09 Tissue - Knee Mycobacterial Culture - Preliminary No growth in 1 week 06/18/18 06:08 Blood - Peripheral Aerobic Blood Culture - Preliminary No growth in 1 day 06/18/18 06:08 Blood - Peripheral Anaerobic Blood Culture - Preliminary No growth in 1 day 06/16/18 05:53 Blood - Peripheral Aerobic Blood Culture - Final S. aureus MRSA 06/16/18 05:53 Blood - Peripheral Anaerobic Blood Culture - Preliminary No growth in 3 days 06/15/18 13:50 Blood - Peripheral Aerobic Blood Culture - Final S. aureus MRSA 06/15/18 13:50 Blood - Peripheral Anaerobic Blood Culture - Final S. aureus MRSA 06/13/18 18:50 Blood - Peripheral Aerobic Blood Culture - Final S. aureus MRSA 06/13/18 18:50 Blood - Peripheral Anaerobic Blood Culture - Final No growth in 5 days 06/13/18 19:00 Blood - Peripheral Aerobic Blood Culture - Final S. aureus MRSA 06/13/18 19:00 Blood - Peripheral Anaerobic Blood Culture - Final No growth in 5 days 06/15/18 16:55 Catheterized Urine Urine Culture - Final Lavinia tropicalis 06/14/18 16:10 Clean Catch Urine Urine Culture - Final Lavinia tropicalis 06/11/18 07:41 Blood - Peripheral Aerobic Blood Culture - Final S. aureus MRSA 06/11/18 07:41 Blood - Peripheral Anaerobic Blood Culture - Final No growth in 5 days Lab - Hematology Results 06/18/18 06/19/18 06:07 04:30 WBC 10.1 10.0 RBC 2.65 L 2.57 L Hgb 7.9 L 7.8 L Hct 24.2 L 23.1 L MCV 91.2 89.7 MCH 30.0 30.4 MCHC 32.8 33.8 RDW 16.3 15.7 Plt Count 298 284 MPV 9.0 8.6 Neut % (Auto) 77.3 H 77.3 H Lymph % (Auto) 13.3 12.8 Josephine % (Auto) 7.0 7.8 Eos % (Auto) 1.6 1.6 Baso % (Auto) 0.8 0.5 Neut # (Auto) 7.8 H 7.7 Lymph # (Auto) 1.3 1.3 Josephine # (Auto) 0.7 0.8 Eos # (Auto) 0.2 0.2 Baso # (Auto) 0.1 0.1 WBC Differential . . Differential Comment Auto diff final Auto diff final Lab - Chemistry Results 06/16/18 06/17/18 06/18/18 12:13 17:18 00:00 Sodium Potassium Chloride Carbon Dioxide Anion Gap BUN Creatinine Estimated GFR POC Glucose 167 H 148 H Random Glucose Calcium Thiamine 56 L Methylmalonic Acid 1.37 H 06/18/18 06/18/18 06/18/18 05:28 06:02 11:38 Sodium 148 H Potassium 4.3 Chloride 115 H Carbon Dioxide 21.1 Anion Gap 12 BUN 79 H Creatinine 2.56 H Estimated GFR 25 L POC Glucose 154 H 185 H Random Glucose 150 H Calcium 8.6 Thiamine Methylmalonic Acid 06/18/18 06/19/18 06/19/18 17:11 00:04 04:30 Sodium 145 Potassium 4.1 Chloride 114 H Carbon Dioxide 22.0 Anion Gap 9 BUN 79 H Creatinine 2.41 H Estimated GFR 27 L POC Glucose 158 H 151 H Random Glucose 147 H Calcium 8.2 L Thiamine Methylmalonic Acid 06/19/18 06/19/18 06:09 11:38 Sodium Potassium Chloride Carbon Dioxide Anion Gap BUN Creatinine Estimated GFR POC Glucose 147 H 178 H Random Glucose Calcium Thiamine Methylmalonic Acid Imaging: ITS Impressions Abdomen/Bladder Ultrasound 06/03/18 00:00 CONCLUSION: 1. Bilateral simple cysts within the kidneys as above. 2. No findings to indicate renal obstruction. 3. Renal cortex appears of adequate thickness. Abdomen/Pelvis CT 06/04/18 00:00 CONCLUSION: 1. The second and third portions of the duodenum appear mildly prominent and indistinct with mild surrounding inflammatory change extending into the adjacent mesentery. The findings are concerning for duodenitis. 2. Bilateral renal cysts. 3. Minimal pleural effusions and atelectasis in the lung bases. 4. The gallbladder is unremarkable. Head MRA 06/04/18 00:00 CONCLUSION: 1. Atherosclerotic changes involving the left M2 segment. 2. No aneurysm or vascular abnormality identified. 3. Visualization of the known blood products along the right side of the brainstem. Neck MRA 06/04/18 00:00 CONCLUSION: 1. Unremarkable MRA of the carotids. Percent stenosis is calculated using the diameter of the stenotic region over the diameter of the normal distal internal carotid artery Abdomen X-Ray 06/05/18 00:00 CONCLUSION: Feeding tube distal tip is in the gastric body. Knee X-Ray 06/06/18 00:00 CONCLUSION: 1. Moderate suprapatellar effusion. 2. Prominent degenerative osteoarthritis. Cervical Spine MRI 06/08/18 07:09 CONCLUSION: 1. Increased signal anterior to the C6-C7 disc level and between the prominent anterior marginal osteophytes. The anterior longitudinal ligament is not seen. This could be the sequela of an injury in this region. The remaining aspect of the disc is intact. The vertebral bodies demonstrate normal signal. Prevertebral soft tissue swelling is not seen. This could be chronic. Fluid resembling a pseudarthrosis can also develop between osteophytes potentially. The remaining soft tissues appear intact. 2. Mild left lateral recess disc protrusion at the C2-C3 level. 3. Mild central disc protrusion at the C3-C4 level. 4. Mild disc bulge at the C5-C6 level and minimal disc bulge at the C4-C5 level. 5. Scattered neural foraminal narrowing as described above. Lumbar Spine MRI 06/08/18 07:09 CONCLUSION: 1. Severe stenosis at the L4-L5 level. 2. Moderate stenosis at the L2-L3 level. 3. Minimal disc bulge at the L1-L2 level with a small inferiorly directed extruded disc fragment at the right side. Significant stenosis is not seen at this level. 4. No focal fluid collection is identified. Thoracic Spine MRI 06/08/18 07:09 CONCLUSION: 1. Limited, noncontrast examination with no evidence of abscess. 2. Small posterior central protrusion at T5-6 with mild flattening of the anterior cord. 3. Posterior disc bulge at T6-7 with mild flattening of the anterior thecal sac. Head CT 06/14/18 00:00 CONCLUSION: Subarachnoid hemorrhage in the basal cisterns no longer seen. No acute intracranial findings identified. . Head MRI 06/15/18 00:00 CONCLUSION: 1. Scattered foci of restricted diffusion have developed within the left cerebral white matter predominantly within the tavarez radiata and periventricular white matter of the left occipital lobe consistent with small white matter infarcts 2. Otherwise stable evaluation. No evidence of cortical infarct, hemorrhage, mass or edema. Chest X-Ray 06/15/18 06:00 CONCLUSION: No significant interval change with persistent patchy opacity at the left lung base. Knee MRI 06/17/18 00:00 CONCLUSION: 1. Diffuse nonspecific soft tissue swelling and edema involving the subcutaneous soft tissues that surround the knee. 2. Moderate joint effusion with multiple filling defects. This could be joint mice. 3. Abnormal signal involving the lateral meniscus highly suspicious for meniscal tear. 4. Abnormal signal involving the ACL ligament suspicious for tear. 5. Primary degenerative arthritis involving the knee joint. Physical Exam: GENERAL: on the vent, not responding, not in respiratory distress. SKIN: Warm and dry. No generalized rash, no ecchymoses HEAD: Atraumatic. Normocephalic. No temporal wasting, or tenderness. EYES: [place] conjunctiva. No petechia or hemorrhage. No scleral icterus. No injection or drainage. EARS, NOSE AND THROAT: Nose without bleeding or purulent nasal discharge. Orally intubated NECK: Trachea midline. Supple and not tender, no meningeal signs CARDIOVASCULAR: Regular rate and rhythm. No murmurs, rubs or gallops heard RESPIRATORY: Clear to auscultation. Breath sounds equal bilaterally. No rales , wheezing or rhonchi ABDOMEN: Soft, obese, globular, distended bowel sounds present and normoactive. EXTREMITIES: Left knee dressing intact; R knee not red NEUROLOGICAL: Moves both feet when touched PSYCHIATRIC: Unable to assess. LINE: No evidence of infection : Hasy in place, urine better Assessment and Plan - Plan Impression MRSA sepsis on presentation, worrisome for IE - more (+) BC - LAURIE negative - MRSA not a common pathogen - so far no obvious source for the MRSA, and very likely endovascular - BC still (+) - Has septic L knee UTI - first UC with MRSA; now with E coli ESBL on Rx - last UC now with Lavinia Septic L knee, MRSA Hemorrhage posterior fossa - no aneurysm: MRA negative for mycotic aneurism Hx DM, HTN, Obesity Renal insufficiency, improving Fevers, better Respiratory failure Recommendation Follow C/S Continue Cubicin Continue Teflaro Continue Invanz - to finish today Continue Diflucan Repeat BC If still (+), will do WBC scan - to look for any undrained focus Monitor progress Follow temps Follow CBC Weaning per CCM
[2018-06-20] MEDS: Oral Hygiene Kit OROPHARYNG SCH ×4 (00:42→16:52)
[2018-06-20] MEDS: Insulin NovoLIN Regular Correctional Sugar Inj SQ SCH ×3 (00:47→14:57)
[2018-06-20] MEDS: Ceftaroline Inj 300 MG in Sodium Chlor 0.9% Inj 100 ML IV.SIG SCH ×2 (02:58→14:10)
[2018-06-20 05:31] LABS: Baso # (Auto) 0.1 th/mm3 (0.0-0.2); Baso % (Auto) 0.6 % (0.0-2.0); Eos # (Auto) 0.1 th/mm3 (0.0-0.4); Eos % (Auto) 1.4 % (0.0-4.0); Hematocrit 22.1 % (39.0-51.0); Hemoglobin 7.6 gm/dL (13.0-17.0); Lymph # (Auto) 1.1 th/mm3 (1.0-4.8); Lymph % (Auto) 11.4 % (9.0-44.0); Mean Corpuscular HGB Conc 34.2 % (32.0-36.0); Mean Corpuscular Hemoglobin 30.5 pg (27.0-34.0); Mean Corpuscular Volume 89.3 fL (80.0-100.0); Mean Platelet Volume 8.6 fL (7.0-11.0); Mono # (Auto) 0.8 th/mm3 (0.0-0.9); Mono % (Auto) 8.8 % (0.0-8.0); Neut # (Auto) 7.4 th/mm3 (1.8-7.7); Neut % (Auto) 77.8 % (16.0-70.0); Platelet Count 252 th/mm3 (150-450); Red Blood Count 2.48 mil/mm3 (4.50-5.90); Red Cell Distribution Width 15.5 % (11.6-17.2); White Blood Count 9.5 th/mm3 (4.0-11.0)
[2018-06-20 05:41] LABS: Calcium 8.3 mg/dL (8.5-10.1); Carbon Dioxide 23.9 meq/L (21.0-32.0); Potassium 4.1 meq/L (3.5-5.1)
[2018-06-20] MEDS: Senna/Docusate Sodium 8.6/50 MG Tablet PO SCH ×2 (09:49→22:28)
--- NOTE | 2018-06-20 12:13 | P.PNCC ---
Subjective Subjective Remarks/Hospital Course: 06/03: Patient is a 68-year-old male with past medical history significant for type 2 diabetes, hypertension, morbid obesity who presented to the [facility] emergency department with weakness and slurred speech. Symptoms present for 2 days, apparently he was found on the floor of his mobile home. He was noted to have high fever at the [facility] his WBC count was 21.3 UA was positive. His sodium was 134 BUN 50 with a creatinine of 2.33 bicarb was 16 lactic acid was 6.8. CPK more than 3000 at the outside hospital. A CT of the head showed focal hemorrhage into the right quadrigeminal plate cistern. Dr. Hopkins was contacted who accepted the patient and requested admission to critical care. Patient was accepted to [facility] at [place] Dr. Deluca evaluated the patient in the [facility], he is lying in the bed. Slightly tachypneic moderate distress. Patient is oriented to place and person. CT of the head repeated here at [place] showed hemorrhage along the posterior aspect of the brainstem measuring up to 2.8 cm in maximal diameter. Mild mass effect on the brainstem. No hydrocephalus. I have started the patient on Cardene infusion for tight blood pressure control. Zosyn for UTI. 2% saline will be started to keep sodium above 150. Avoid mannitol due to renal failure. Keppra for seizure prophylaxis. I am unable to find coags but platelet count was normal. 06/04: MRSA bacteremia ob blood cultures drawn on admission. Currently on precedex, on room air. Awake, follows commands, speech, unintelligible. Started on IV vanc. ID consulted as concern for septic emboli/ endocarditis as cause for brainstem bleed. 06/05: 48 hours following a mid brain spontaneous hemorrhage complicated by numerous MRSA blood cultures. Blood pressure acceptably well controlled. Fever pattern persists. Patient tolerating extubation and protecting airway adequately. Taper completely off Precedex. Serum osmolality acceptably concentrated. 06/06: Serum osmolality acceptable, will allow sodium to drift back into the lower 150s now. Patient is alert and interactive. He moves 4 limbs spontaneously. Episodic fevers to 102+. We will continue with infectious disease workup for source of bacteremia. Endocarditis remains high on the list of possibilities. 06/07: Awake, alert, following commands. Speech very slurred however responds appropriately. Slight disorientation. Thought he was in [place]. Knows he is in the hospital. Complains of back pain. 06/08: Drowsy, arousable, tachypneic. Sodium up to 163, started on D5W and free water. Creatinine up. Tolerating tube feeds. Awaiting MRI. Will need LAURIE. Will need intubation probably for airway and in order to transport for MRI and LAURIE. 06/09: Patient intubated and placed on mechanical ventilation on 06/09. Dr. Hopkins has cleared patient for LAURIE/anticoagulation/valve surgery if needed. We are awaiting LAURIE for further evaluation of MRSA bacteremia by cardiology to determine source. Orthopedics evaluating left knee synovitis/effusion/meniscal tear. 06/10: Underwent aspiration of the left knee yesterday which is growing MRSA. Remains sedated, orally intubated on mechanical ventilation. Underwent LAURIE today which did not reveal any vegetation. Being followed by orthopedics/ID/ neurosurgery. 06/11: Remains orally intubated on mechanical ventilation. Scheduled for OR for left knee septic arthritis with Dr. Carlson. 06/12: Remains orally intubated on mechanical ventilation. Waiting for OR for left knee septic arthritis with Dr. Carlson 06/13: Remains intubated sedated. On sedation hold localizes to pain. Status post left knee lateral arthrotomy with irrigation and debridement. Fluid culture growing MRSA 06/14: Remains intubated sedated. On sedation hold now not waking up or following commands weakly withdraws extremities. WBC count increasing. Sodium coming down with hypotonic saline. 06/15: All sedation now held more than 36 hours. No significant improvement in mentation. Spontaneously moving upper extremity withdraws lowers to pain. CT of the head yesterday essentially unchanged with resolution of previously seen subarachnoid hemorrhage in the basal cisterns 06/16: Failed CPAP after 20 minutes this morning due to erratic and rapid respiratory effort. Opens eyes with movement but does not focus or track. 06/17: We will need to discuss tracheostomy with his son this morning. No improvement in neurologic function overnight. Continues to fail efforts at spontaneous breathing trials. Hypokalemia needs gingerly replacement this morning. 06/18: No improvement in neurologic function. Basically remains largely unresponsive aside from occasional eye-opening to noxious stimulation. Persistent positive bloodstream cultures. Dependent on mechanical ventilation. 06/19: Little improvement if any in neurologic function. Unable to wean from mechanical ventilation. Continue to hold all sedation and pain medication. 06/20: No significant improvement in neurologic function. Unable to wean from mechanical ventilation. We are holding off on tracheostomy until his son arrives as he may decide to forego additional aggressive care. Still behaves as though an endovascular source is responsible for the ongoing bacteremia. Despite the transesophageal echo report he sure behaves like someone with bacterial endocarditis. Objective Vital Signs / I&O: Vital Signs 06/19/18 13:00 06/19/18 14:00 06/19/18 15:00 Temperature 100.2 F H 99.6 F 100.2 F H Pulse Rate 74 94 H 93 H Respiratory Rate Blood Pressure 128/58 L 160/70 H 152/67 H Pulse Oximetry 100 100 100 06/19/18 15:57 06/19/18 16:00 06/19/18 17:00 Temperature 100.6 F H 100.4 F H Pulse Rate 69 81 Respiratory Rate 26 H Blood Pressure 109/56 L 156/74 H Pulse Oximetry 100 100 100 06/19/18 18:00 06/19/18 19:00 06/19/18 19:55 Temperature 100.8 F H 100.6 F H Pulse Rate 72 75 Respiratory Rate 25 H Blood Pressure 146/66 H 134/63 Pulse Oximetry 100 100 100 06/19/18 20:00 06/19/18 21:00 06/19/18 22:00 Temperature 99.7 F H 100.4 F H 100.4 F H Pulse Rate 80 89 86 Respiratory Rate Blood Pressure 146/69 H 168/74 H 150/67 H Pulse Oximetry 100 100 100 06/19/18 23:00 06/19/18 23:47 06/20/18 00:00 Temperature 100.4 F H 100.0 F H Pulse Rate 80 76 Respiratory Rate 24 Blood Pressure 137/63 144/64 H Pulse Oximetry 100 100 100 06/20/18 01:00 06/20/18 02:00 06/20/18 03:00 Temperature 99.7 F H 100.0 F H 100.0 F H Pulse Rate 77 78 75 Respiratory Rate Blood Pressure 141/64 H 142/63 H 136/61 Pulse Oximetry 100 100 100 06/20/18 03:24 06/20/18 04:00 06/20/18 05:00 Temperature 100.4 F H 100.2 F H Pulse Rate 77 78 Respiratory Rate 24 Blood Pressure 134/61 140/65 Pulse Oximetry 100 100 100 06/20/18 06:00 06/20/18 07:00 06/20/18 07:55 Temperature 99.7 F H 100.0 F H Pulse Rate 77 87 Respiratory Rate 24 Blood Pressure 143/67 H 149/66 H Pulse Oximetry 100 100 100 Intake & Output 06/19/18 06/20/18 06/20/18 18:59 06:59 18:59 Intake Total 2441.625 / 2441.625 1036 / 1036 Output Total 2245 / 2245 2210 / 2210 Balance 196.625 / 680.321 9851 / 1036 -2210 / -2210 Intake: IV 1414.625 / 1414.625 205 / 205 Sodium Chloride 23.4% Inj 38.5 1009.625 / 1009.625 MEQ In Sterile Water for Inj 1, 000 ML @ 100 mls/hr IV.CONT . Q10H6M JACOB Rx#:[id number] Teflaro Inj 300 MG In NS Inj 100 / 100 100 / 100 100 ML @ 100 mls/hr IV.SIG Q12H JACOB Rx#:[id number] Cubicin Inj 800 MG In NS Inj 100 / 100 100 ML @ 200 mls/hr IV.SIG Q24H JACOB Rx#:[id number] INVanz Inj 1,000 MG In NS Inj 100 / 100 100 ML @ 200 mls/hr IV.SIG Q24H JACOB Rx#:[id number] Keppra Inj 500 MG In NS Inj 100 105 / 105 105 / 105 ML @ 400 mls/hr IV.SIG Q12H JACOB Rx#:[id number] Tube Feeding 277 / 277 331 / 331 Tube Irrigant 750 / 750 Water Bolus Amount 500 / 500 Output: Urine Amount (Catheter) 2245 / 2245 2210 / 2210 Indwelling Urethral Catheter 2245 / 2245 2210 / 2210 Other: Date of Last Bowel Movement 06/19/18 06/19/18 # Incontinent Bowel Movements 0 Result Diagrams: 06/20/18 05:02 06/20/18 05:02 Objective Remarks: GENERAL: Ill appearing 68-year-old male, largely unresponsive HEAD: Atraumatic. Normocephalic. EYES: Pupils equal and round. No conjunctival icterus. ENT: No nasal bleeding or discharge. Orotracheal intubation. CARDIOVASCULAR: Normal S1-S2. No murmurs, rubs. Regular rate and rhythm. No JVD. RESPIRATORY: Few persistent scattered rhonchi, acceptable excursions on mechanical ventilation. No wheezes. Strong cough when suctioned GASTROINTESTINAL: Abdomen soft, non-tender, nondistended. BS present. No guarding. MUSCULOSKELETAL: Warm, well perfused. NEUROLOGICAL: Encephalopathic, orally intubated, Pupils equal 2 mm, reactive. Patient localizes to pain with LUE, minimally withdraws the lower extremities. Opens eyes sometime stimulation but does not focus or track. Assessment and Plan - Problem List (1) 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 Status: Acute (2) Encephalopathy acute Code(s): G93.40 - Encephalopathy, unspecified Status: Acute (3) Acute kidney failure Code(s): N17.9 - Acute kidney failure, unspecified Status: Acute (4) Severe sepsis Code(s): A41.9 - Sepsis, unspecified organism; R65.20 - Severe sepsis without septic shock Status: Acute (5) Metabolic acidemia Code(s): E87.2 - Acidosis Status: Acute (6) UTI (urinary tract infection) Code(s): N39.0 - Urinary tract infection, site not specified Status: Acute (7) Lactic acidosis Code(s): E87.2 - Acidosis Status: Acute (8) Rhabdomyolysis Code(s): M62.82 - Rhabdomyolysis Status: Acute (9) Obesity Code(s): E66.9 - Obesity, unspecified Status: Chronic (10) Hypertension Code(s): I10 - Essential (primary) hypertension Status: Chronic (11) Diabetes Code(s): E11.9 - Type 2 diabetes mellitus without complications Status: Chronic - Assessment and Plan Plan: NEURO: Brainstem hemorrhage measuring up to 2.8 cm in maximal diameter, mild mass effect Metabolic encephalopathy -Repeat CT 06/14: Subarachnoid hemorrhage in the basal cisterns as resolved. -EEG done yesterday 06/14/2018 shows moderate encephalopathy -Neurosurgery Dr. Hopkins -Currently on free water/1/2 NS for hypernatremia -Close neuro monitoring. Prev MRI/MRA brain results noted -Head CT 06/08 shows resolving brainstem hemorrhage. -Keppra for seizure prophylaxis -Discontinue all sedation DC propofol, Precedex, Fentanyl -With MRSA bacteremia suspect septic emboli with mycotic aneurism vs hypertensive bleed. -MRI spine reviewed, no evidence of epidural abscess -MRI head with numerous small ischemic infarcts, embolic in appearance -Continues largely unresponsive 06/20/18 RESP: Acute respiratory failure on mechanical ventilation Past smoking -DuoNeb every as needed -Continue mechanical ventilation, vent bundle, bronchodilators as needed -Daily CPAP trials. -Mental status will not permit extubation -Intubated on 06/08/2018, vent day 12 patient, will need tracheostomy. -Holding off on tracheostomy as son, when he arrives, may well decide against it. CV: Lactic acidemia Hypotension History of hypertension -Initial lactic acid at the outside hospital was 6.8 -Resuscitated with normal saline IV fluids, transthoracic echo -Half NS due to hypernatremia -Cardiology Dr. Odonnell consulted to perform LAURIE to evaluate for endocarditis - no vegetations seen -LAURIE 06/10 negative for any vegetations. GI: -Enteral feeds at goal through nasogastric tube : Acute kidney injury Rhabdomyolysis -Monitor renal function closely. Replace Hays catheter due to candiduria, repeat culture -Strict intake output, monitor and replete electrolytes. -Nephrology following for rising creatinine-suspect multifactorial secondary to sepsis/vancomycin/gentamicin toxicity/IV contrast exposure. -Replace electrolyte losses. ID: Severe sepsis ESBL E. coli UTI MRSA bacteremia MRSA left knee septic arthritis -On Cubicin. Cefepime changed to Invanz on 06/10 for ESBL E. coli in urine culture -Status post left knee lateral arthrotomy with irrigation and debridement. Fluid culture growing MRSA -s/p MRI left knee due to swelling -orthopedics performed left knee aspiration on 06/09 with drainage of 60 cc of purulent cloudy fluid which is growing MRSA. -Vancomycin and gentamicin discontinued on 06/08 per ID due to worsening renal function. Blood cultures positive for MRSA (10/07) - ID Dr. Rodriguez -LAURIE negative for vegetation on 06/10 -Ortho following and to decide further management for left knee septic arthritis - HEME: Leukocytosis secondary to sepsis -Monitor CBC, coags ENDO: Type 2 diabetes -Sliding scale insulin -Basal long-acting insulin PROPH: -Bilateral lower extremity SCDs. IV famotidine. Subcutaneous heparin for DVT prophylaxis LINES: -Utilize peripheral IVs, central line if needed Overall impression: Blood pressure control remains problematic and will need additional scheduled medication. Agitation appears better controlled. Bacteremia remains persistent and possibly life-threatening problem. Neurologic status poor and unstable. 06/08: D/W Dr. Hopkins. called patient's son Abraham Bautista at [phone] and updated him regarding current clinical status and plan to intubate and place on mech ventilation due to concern regarding airway protection and in order to safely get imaging and possibly LAURIE and he voiced understanding and was agreeable. Will call again today 06/19: We continue to touch base with Abraham Bautista, the patient's son in [place]. I have expressed the poor prognosis to the son but he does not anticipate getting down here until after [place]. I encouraged him and his aunt to come down right away if they can so that we are able to make some formal decisions about Ezra's long-term care. The son expressed he will try to calm down the week of June 21. I have asked the palliative care service to see Mr. Bautista Thursday. (1) Brain stem hemorrhage Qualifiers: Intracerebral hemorrhage etiology: nontraumatic
--- NOTE | 2018-06-20 12:32 | P.PNID ---
Subjective Remarks: Patient is a 68-year-old male, brought into the hospital initially at [facility] for evaluation of weakness and slurred speech. It apparently has been present for several days. He was found on the floor of his mobile home. At [facility] he was found to be febrile, WBC up to 21,000, urinalysis with pyuria, creatinine 2.33, and lactic acid was elevated. CT of the head showed focal hemorrhage in the posterior fossa. Patient was transferred to [facility] for neurosurgical evaluation. Patient since admission has had elevated temperature. His blood cultures done on admission are now reported as growing gram-positive cocci, MRSA. His urine culture is also growing MRSA. On evaluation in the intensive care unit, he is awake, and interactive. He looks slightly tachypneic at rest and and on nasal O2. He has some confusion but mostly his oriented. His chest x-ray is normal. Echo is showing calcification in the aortic valve. No vegetations seen. Infectious disease consultation has been requested to assist with evaluation and treatment of patient with MRSA bacteremia. Notes reviewed Continues to have temps 100+ BP ok On the vent Creat lower, has good UO Has new (+) BC 06/18 Teflaro added 06/17 Continues to have (+) BC Agree the he is acting like IE though LAURIE negative Not on sedation, not waking up Moves both feet when touched MRI R knee noted Had I and D L knee 06/12 LAURIE no vegetation seen No rash No diarrhea MRI spine ok CT A/P no abscess Antibiotics: Cubicin Teflaro - started 06/17 Diflucan Lines: PIV Past Medical History: Diabetes History of MRSA infection Onset Date: ~06/03/18 Hypertension Obesity UTI (urinary tract infection) Allergies/Adverse Reactions: Allergies No Known Allergies Allergy (Verified 06/03/18 01:32) Objective Vital Signs 06/19/18 13:00 06/19/18 14:00 06/19/18 15:00 Temperature 100.2 F H 99.6 F 100.2 F H Pulse Rate 74 94 H 93 H Respiratory Rate Blood Pressure 128/58 L 160/70 H 152/67 H Pulse Oximetry 100 100 100 06/19/18 15:57 06/19/18 16:00 06/19/18 17:00 Temperature 100.6 F H 100.4 F H Pulse Rate 69 81 Respiratory Rate 26 H Blood Pressure 109/56 L 156/74 H Pulse Oximetry 100 100 100 06/19/18 18:00 06/19/18 19:00 06/19/18 19:55 Temperature 100.8 F H 100.6 F H Pulse Rate 72 75 Respiratory Rate 25 H Blood Pressure 146/66 H 134/63 Pulse Oximetry 100 100 100 06/19/18 20:00 06/19/18 21:00 06/19/18 22:00 Temperature 99.7 F H 100.4 F H 100.4 F H Pulse Rate 80 89 86 Respiratory Rate Blood Pressure 146/69 H 168/74 H 150/67 H Pulse Oximetry 100 100 100 06/19/18 23:00 06/19/18 23:47 06/20/18 00:00 Temperature 100.4 F H 100.0 F H Pulse Rate 80 76 Respiratory Rate 24 Blood Pressure 137/63 144/64 H Pulse Oximetry 100 100 100 06/20/18 01:00 06/20/18 02:00 06/20/18 03:00 Temperature 99.7 F H 100.0 F H 100.0 F H Pulse Rate 77 78 75 Respiratory Rate Blood Pressure 141/64 H 142/63 H 136/61 Pulse Oximetry 100 100 100 06/20/18 03:24 06/20/18 04:00 06/20/18 05:00 Temperature 100.4 F H 100.2 F H Pulse Rate 77 78 Respiratory Rate 24 Blood Pressure 134/61 140/65 Pulse Oximetry 100 100 100 06/20/18 06:00 06/20/18 07:00 06/20/18 07:55 Temperature 99.7 F H 100.0 F H Pulse Rate 77 87 Respiratory Rate 24 Blood Pressure 143/67 H 149/66 H Pulse Oximetry 100 100 100 06/20/18 12:05 Temperature Pulse Rate Respiratory Rate 20 Blood Pressure Pulse Oximetry 100 Intake & Output 06/19/18 06/20/18 06/20/18 18:59 06:59 18:59 Intake Total 2441.625 / 2441.625 1036 / 1036 Output Total 2245 / 2245 2210 / 2210 Balance 196.625 / 959.081 2368 / 1036 -2210 / -2210 Intake: IV 1414.625 / 1414.625 205 / 205 Sodium Chloride 23.4% Inj 38.5 1009.625 / 1009.625 MEQ In Sterile Water for Inj 1, 000 ML @ 100 mls/hr IV.CONT . Q10H6M JACOB Rx#:[id number] Teflaro Inj 300 MG In NS Inj 100 / 100 100 / 100 100 ML @ 100 mls/hr IV.SIG Q12H JACOB Rx#:[id number] Cubicin Inj 800 MG In NS Inj 100 / 100 100 ML @ 200 mls/hr IV.SIG Q24H JACOB Rx#:[id number] INVanz Inj 1,000 MG In NS Inj 100 / 100 100 ML @ 200 mls/hr IV.SIG Q24H JACOB Rx#:[id number] Keppra Inj 500 MG In NS Inj 100 105 / 105 105 / 105 ML @ 400 mls/hr IV.SIG Q12H JACOB Rx#:[id number] Tube Feeding 277 / 277 331 / 331 Tube Irrigant 750 / 750 Water Bolus Amount 500 / 500 Output: Urine Amount (Catheter) 2245 / 2245 2210 / 2210 Indwelling Urethral Catheter 2245 / 2245 2210 / 2210 Other: Date of Last Bowel Movement 06/19/18 06/19/18 # Incontinent Bowel Movements 0 06/18/18 06:08 Blood - Peripheral Aerobic Blood Culture - Preliminary gram positive cocci 06/18/18 06:08 Blood - Peripheral Anaerobic Blood Culture - Preliminary No growth in 2 days 06/16/18 05:53 Blood - Peripheral Aerobic Blood Culture - Final S. aureus MRSA 06/16/18 05:53 Blood - Peripheral Anaerobic Blood Culture - Preliminary No growth in 4 days 06/20/18 05:02 Blood - Peripheral Aerobic Blood Culture - Pending 06/20/18 05:02 Blood - Peripheral Anaerobic Blood Culture - Pending 06/12/18 13:10 Other Fungal Smear - Final No fungal elements seen 06/12/18 13:10 Other Fungal Culture - Preliminary No growth in 1 week 06/12/18 13:10 Other Acid Fast Bacilli Smear - Final No acid fast bacilli seen 06/12/18 13:10 Other Mycobacterial Culture - Preliminary No growth in 1 week 06/12/18 13:09 Tissue - Knee Fungal Smear - Final No fungal elements seen 06/12/18 13:09 Tissue - Knee Fungal Culture - Preliminary No growth in 1 week 06/12/18 13:09 Tissue - Knee Acid Fast Bacilli Smear - Final No acid fast bacilli seen 06/12/18 13:09 Tissue - Knee Mycobacterial Culture - Preliminary No growth in 1 week 06/15/18 13:50 Blood - Peripheral Aerobic Blood Culture - Final S. aureus MRSA 06/15/18 13:50 Blood - Peripheral Anaerobic Blood Culture - Final S. aureus MRSA 06/13/18 18:50 Blood - Peripheral Aerobic Blood Culture - Final S. aureus MRSA 06/13/18 18:50 Blood - Peripheral Anaerobic Blood Culture - Final No growth in 5 days 06/13/18 19:00 Blood - Peripheral Aerobic Blood Culture - Final S. aureus MRSA 06/13/18 19:00 Blood - Peripheral Anaerobic Blood Culture - Final No growth in 5 days 06/15/18 16:55 Catheterized Urine Urine Culture - Final Lavinia tropicalis Lab - Hematology Results 06/19/18 06/20/18 04:30 05:02 WBC 10.0 9.5 RBC 2.57 L 2.48 L Hgb 7.8 L 7.6 L Hct 23.1 L 22.1 L MCV 89.7 89.3 MCH 30.4 30.5 MCHC 33.8 34.2 RDW 15.7 15.5 Plt Count 284 252 MPV 8.6 8.6 Neut % (Auto) 77.3 H 77.8 H Lymph % (Auto) 12.8 11.4 Stephens % (Auto) 7.8 8.8 H Eos % (Auto) 1.6 1.4 Baso % (Auto) 0.5 0.6 Neut # (Auto) 7.7 7.4 Lymph # (Auto) 1.3 1.1 Stephens # (Auto) 0.8 0.8 Eos # (Auto) 0.2 0.1 Baso # (Auto) 0.1 0.1 WBC Differential . . Differential Comment Auto diff final Auto diff final Lab - Chemistry Results 06/18/18 06/19/18 06/19/18 17:11 00:04 04:30 Sodium 145 Potassium 4.1 Chloride 114 H Carbon Dioxide 22.0 Anion Gap 9 BUN 79 H Creatinine 2.41 H Estimated GFR 27 L POC Glucose 158 H 151 H Random Glucose 147 H Calcium 8.2 L 06/19/18 06/19/18 06/19/18 06:09 11:38 16:54 Sodium Potassium Chloride Carbon Dioxide Anion Gap BUN Creatinine Estimated GFR POC Glucose 147 H 178 H 165 H Random Glucose Calcium 12/16/18 12/16/18 00:41 05:02 Sodium 144 Potassium 4.1 Chloride 112 H Carbon Dioxide 23.9 Anion Gap 8 BUN 78 H Creatinine 2.45 H Estimated GFR 26 L POC Glucose 189 H Random Glucose 158 H Calcium 8.3 L Imaging: ITS Impressions Abdomen/Bladder Ultrasound 06/03/18 00:00 CONCLUSION: 1. Bilateral simple cysts within the kidneys as above. 2. No findings to indicate renal obstruction. 3. Renal cortex appears of adequate thickness. Abdomen/Pelvis CT 06/04/18 00:00 CONCLUSION: 1. The second and third portions of the duodenum appear mildly prominent and indistinct with mild surrounding inflammatory change extending into the adjacent mesentery. The findings are concerning for duodenitis. 2. Bilateral renal cysts. 3. Minimal pleural effusions and atelectasis in the lung bases. 4. The gallbladder is unremarkable. Head MRA 06/04/18 00:00 CONCLUSION: 1. Atherosclerotic changes involving the left M2 segment. 2. No aneurysm or vascular abnormality identified. 3. Visualization of the known blood products along the right side of the brainstem. Neck MRA 06/04/18 00:00 CONCLUSION: 1. Unremarkable MRA of the carotids. Percent stenosis is calculated using the diameter of the stenotic region over the diameter of the normal distal internal carotid artery Abdomen X-Ray 06/05/18 00:00 CONCLUSION: Feeding tube distal tip is in the gastric body. Knee X-Ray 06/06/18 00:00 CONCLUSION: 1. Moderate suprapatellar effusion. 2. Prominent degenerative osteoarthritis. Cervical Spine MRI 06/08/18 07:09 CONCLUSION: 1. Increased signal anterior to the C6-C7 disc level and between the prominent anterior marginal osteophytes. The anterior longitudinal ligament is not seen. This could be the sequela of an injury in this region. The remaining aspect of the disc is intact. The vertebral bodies demonstrate normal signal. Prevertebral soft tissue swelling is not seen. This could be chronic. Fluid resembling a pseudarthrosis can also develop between osteophytes potentially. The remaining soft tissues appear intact. 2. Mild left lateral recess disc protrusion at the C2-C3 level. 3. Mild central disc protrusion at the C3-C4 level. 4. Mild disc bulge at the C5-C6 level and minimal disc bulge at the C4-C5 level. 5. Scattered neural foraminal narrowing as described above. Lumbar Spine MRI 06/08/18 07:09 CONCLUSION: 1. Severe stenosis at the L4-L5 level. 2. Moderate stenosis at the L2-L3 level. 3. Minimal disc bulge at the L1-L2 level with a small inferiorly directed extruded disc fragment at the right side. Significant stenosis is not seen at this level. 4. No focal fluid collection is identified. Thoracic Spine MRI 06/08/18 07:09 CONCLUSION: 1. Limited, noncontrast examination with no evidence of abscess. 2. Small posterior central protrusion at T5-6 with mild flattening of the anterior cord. 3. Posterior disc bulge at T6-7 with mild flattening of the anterior thecal sac. Head CT 06/14/18 00:00 CONCLUSION: Subarachnoid hemorrhage in the basal cisterns no longer seen. No acute intracranial findings identified. . Head MRI 06/15/18 00:00 CONCLUSION: 1. Scattered foci of restricted diffusion have developed within the left cerebral white matter predominantly within the tavarez radiata and periventricular white matter of the left occipital lobe consistent with small white matter infarcts 2. Otherwise stable evaluation. No evidence of cortical infarct, hemorrhage, mass or edema. Chest X-Ray 06/15/18 06:00 CONCLUSION: No significant interval change with persistent patchy opacity at the left lung base. Knee MRI 06/17/18 00:00 CONCLUSION: 1. Diffuse nonspecific soft tissue swelling and edema involving the subcutaneous soft tissues that surround the knee. 2. Moderate joint effusion with multiple filling defects. This could be joint mice. 3. Abnormal signal involving the lateral meniscus highly suspicious for meniscal tear. 4. Abnormal signal involving the ACL ligament suspicious for tear. 5. Primary degenerative arthritis involving the knee joint. Physical Exam: GENERAL: on the vent, not responding, not in respiratory distress. SKIN: Warm and dry. No generalized rash, no ecchymoses HEAD: Atraumatic. Normocephalic. No temporal wasting, or tenderness. EYES: Heber-Overgaard conjunctiva. No petechia or hemorrhage. No scleral icterus. No injection or drainage. EARS, NOSE AND THROAT: Nose without bleeding or purulent nasal discharge. Orally intubated NECK: Trachea midline. Supple and not tender, no meningeal signs CARDIOVASCULAR: Regular rate and rhythm. No murmurs, rubs or gallops heard RESPIRATORY: Clear to auscultation. Breath sounds equal bilaterally. No rales , wheezing or rhonchi ABDOMEN: Soft, obese, globular, distended bowel sounds present and normoactive. EXTREMITIES: Left knee dressing intact; R knee not red NEUROLOGICAL: Moves both feet when touched PSYCHIATRIC: Unable to assess. LINE: No evidence of infection : H[place] in place, urine better Assessment and Plan - Plan Impression MRSA sepsis on presentation, likely IE, endovascular focus despite LAURIE being negative - more (+) BC - LAURIE negative - MRSA not a common pathogen - BC still (+) - Has septic L knee UTI - first UC with MRSA; now with E coli ESBL on Rx - last UC now with Lavinia Septic L knee, MRSA Hemorrhage posterior fossa - no aneurysm: MRA negative for mycotic aneurism Hx DM, HTN, Obesity Renal insufficiency, improving Fevers, persistent Respiratory failure Recommendation Follow C/S Continue Cubicin Continue Teflaro ADD Rifampin Continue Diflucan Repeat BC WBC scan - to look for any undrained focus Monitor progress Follow temps Follow CBC
--- NOTE | 2018-06-20 12:40 | P.PNNP ---
Subjective Interval history: No significant improvement in neurologic function. On ventilator no sedation. Creatinine is stable at 2.4 today, good urinary output. <Azul Lam - Last Filed: 06/20/18 12:35> Physical Exam Vital signs: Vital Signs 06/19/18 13:00 06/19/18 14:00 06/19/18 15:00 Temperature 100.2 F H 99.6 F 100.2 F H Pulse Rate 74 94 H 93 H Respiratory Rate Blood Pressure 128/58 L 160/70 H 152/67 H Pulse Oximetry 100 100 100 06/19/18 15:57 06/19/18 16:00 06/19/18 17:00 Temperature 100.6 F H 100.4 F H Pulse Rate 69 81 Respiratory Rate 26 H Blood Pressure 109/56 L 156/74 H Pulse Oximetry 100 100 100 06/19/18 18:00 06/19/18 19:00 06/19/18 19:55 Temperature 100.8 F H 100.6 F H Pulse Rate 72 75 Respiratory Rate 25 H Blood Pressure 146/66 H 134/63 Pulse Oximetry 100 100 100 06/19/18 20:00 06/19/18 21:00 06/19/18 22:00 Temperature 99.7 F H 100.4 F H 100.4 F H Pulse Rate 80 89 86 Respiratory Rate Blood Pressure 146/69 H 168/74 H 150/67 H Pulse Oximetry 100 100 100 06/19/18 23:00 06/19/18 23:47 06/20/18 00:00 Temperature 100.4 F H 100.0 F H Pulse Rate 80 76 Respiratory Rate 24 Blood Pressure 137/63 144/64 H Pulse Oximetry 100 100 100 06/20/18 01:00 06/20/18 02:00 06/20/18 03:00 Temperature 99.7 F H 100.0 F H 100.0 F H Pulse Rate 77 78 75 Respiratory Rate Blood Pressure 141/64 H 142/63 H 136/61 Pulse Oximetry 100 100 100 06/20/18 03:24 06/20/18 04:00 06/20/18 05:00 Temperature 100.4 F H 100.2 F H Pulse Rate 77 78 Respiratory Rate 24 Blood Pressure 134/61 140/65 Pulse Oximetry 100 100 100 06/20/18 06:00 06/20/18 07:00 06/20/18 07:55 Temperature 99.7 F H 100.0 F H Pulse Rate 77 87 Respiratory Rate 24 Blood Pressure 143/67 H 149/66 H Pulse Oximetry 100 100 100 06/20/18 12:05 Temperature Pulse Rate Respiratory Rate 20 Blood Pressure Pulse Oximetry 100 Intake & Output 06/19/18 06/20/18 06/20/18 18:59 06:59 18:59 Intake Total 2441.625 / 2441.625 1036 / 1036 Output Total 2245 / 2245 2210 / 2210 Balance 196.625 / 261.998 8433 / 1036 -2210 / -2210 Intake: IV 1414.625 / 1414.625 205 / 205 Sodium Chloride 23.4% Inj 38.5 1009.625 / 1009.625 MEQ In Sterile Water for Inj 1, 000 ML @ 100 mls/hr IV.CONT . Q10H6M JACOB Rx#:[id number] Teflaro Inj 300 MG In NS Inj 100 / 100 100 / 100 100 ML @ 100 mls/hr IV.SIG Q12H JACOB Rx#:[id number] Cubicin Inj 800 MG In NS Inj 100 / 100 100 ML @ 200 mls/hr IV.SIG Q24H JACOB Rx#:[id number] INVanz Inj 1,000 MG In NS Inj 100 / 100 100 ML @ 200 mls/hr IV.SIG Q24H JACOB Rx#:[id number] Keppra Inj 500 MG In NS Inj 100 105 / 105 105 / 105 ML @ 400 mls/hr IV.SIG Q12H JACOB Rx#:[id number] Tube Feeding 277 / 277 331 / 331 Tube Irrigant 750 / 750 Water Bolus Amount 500 / 500 Output: Urine Amount (Catheter) 2245 / 2245 2210 / 2210 Indwelling Urethral Catheter 2245 / 2245 2210 / 2210 Other: Date of Last Bowel Movement 06/19/18 06/19/18 # Incontinent Bowel Movements 0 Narrative: GENERAL: Alert opens eyes appears to command SKIN: Warm and dry. NECK: Supple, trachea midline. No JVD. CARDIOVASCULAR: Regular rate and rhythm without murmurs, gallops, or rubs. RESPIRATORY: Breath sounds equal bilaterally. No accessory muscle use. GASTROINTESTINAL: Abdomen soft, non-tender, nondistended. MUSCULOSKELETAL: No cyanosis, upper extremity edema, improving. - Urinary Catheter Management Indwelling Urethral Catheter Cath placed during this visit: yes, but has since been removed by the nurse Urethral indwelling: Yes Reason for continuing: Hourly intake/output Insertion date: 06/15/18 Insertion time: 15:00 Removal date: 06/15/18 Removal time: 14:55 <Azul Lam - Last Filed: 06/20/18 12:35> Vital signs: Vital Signs 06/19/18 22:00 06/19/18 23:00 06/19/18 23:47 Temperature 100.4 F H 100.4 F H Pulse Rate 86 80 Respiratory Rate 24 Blood Pressure 150/67 H 137/63 Pulse Oximetry 100 100 100 06/20/18 00:00 06/20/18 01:00 06/20/18 02:00 Temperature 100.0 F H 99.7 F H 100.0 F H Pulse Rate 76 77 78 Respiratory Rate Blood Pressure 144/64 H 141/64 H 142/63 H Pulse Oximetry 100 100 100 06/20/18 03:00 06/20/18 03:24 06/20/18 04:00 Temperature 100.0 F H 100.4 F H Pulse Rate 75 77 Respiratory Rate 24 Blood Pressure 136/61 134/61 Pulse Oximetry 100 100 100 06/20/18 05:00 06/20/18 06:00 06/20/18 07:00 Temperature 100.2 F H 99.7 F H 100.0 F H Pulse Rate 78 77 87 Respiratory Rate Blood Pressure 140/65 143/67 H 149/66 H Pulse Oximetry 100 100 100 06/20/18 07:55 06/20/18 08:00 06/20/18 09:00 Temperature 99.9 F H 100.0 F H Pulse Rate 78 80 Respiratory Rate 24 15 15 Blood Pressure 125/61 138/63 Pulse Oximetry 100 100 100 06/20/18 10:00 06/20/18 11:00 06/20/18 12:00 Temperature 100.0 F H 100.2 F H 99.9 F H Pulse Rate 67 77 75 Respiratory Rate 15 15 15 Blood Pressure 114/55 L 143/65 H 135/63 Pulse Oximetry 100 100 100 06/20/18 12:05 06/20/18 13:00 06/20/18 14:00 Temperature 99.9 F H 100.0 F H Pulse Rate 68 67 Respiratory Rate 20 15 15 Blood Pressure 124/58 L 123/57 L Pulse Oximetry 100 100 100 06/20/18 15:00 06/20/18 16:00 06/20/18 16:06 Temperature 100.0 F H 99.9 F H Pulse Rate 67 78 Respiratory Rate 15 22 Blood Pressure 126/59 L 141/65 H Pulse Oximetry 100 100 100 06/20/18 17:00 06/20/18 18:00 06/20/18 20:37 Temperature 99.7 F H 100.0 F H Pulse Rate 74 74 Respiratory Rate 24 Blood Pressure 127/61 129/63 Pulse Oximetry 100 100 100 Intake & Output 06/20/18 06/20/18 06/21/18 06:59 18:59 06:59 Intake Total 1036 / 1036 305 / 305 Output Total 2210 / 2210 Balance 1036 / 1036 -1905 / -1905 Intake: IV 205 / 205 305 / 305 Teflaro Inj 300 MG In NS Inj 100 / 100 100 / 100 100 ML @ 100 mls/hr IV.SIG Q12H JACOB Rx#:[id number] Cubicin Inj 800 MG In NS Inj 100 / 100 100 ML @ 200 mls/hr IV.SIG Q24H JACOB Rx#:[id number] Keppra Inj 500 MG In NS Inj 100 105 / 105 105 / 105 ML @ 400 mls/hr IV.SIG Q12H JACOB Rx#:[id number] Tube Feeding 331 / 331 Water Bolus Amount 500 / 500 Output: Urine Amount (Catheter) 2210 / 2210 Indwelling Urethral Catheter 2210 / 2210 Other: Date of Last Bowel Movement 06/19/18 06/20/18 - Urinary Catheter Management Indwelling Urethral Catheter Cath placed during this visit: no <Aurelia Powell - Last Filed: 06/20/18 21:49> Assessment and Plan - Assessment (1) Acute kidney failure Code(s): N17.9 - Acute kidney failure, unspecified Status: Acute Plan: Patient with Acute kidney injury, Creatinine started to increase on the 4th at 2.86. NIKKI with FeNA at 2.35 suggestive of ATN possibly from sepsis or contrast nephropathy. AIN in differential also with vancomycin/gentamicin levels elevated on the 4th. Creatinine at 2.41, Non oliguric Continue Lasix, and follow the urine out put and BMP. Avoid Nephrotoxins, watch for renal recovery. (2) Bacteremia Code(s): R78.81 - Bacteremia Status: Acute Plan: Antibiotics per ID, renal dose as appropriate (3) Hypernatremia Code(s): E87.0 - Hyperosmolality and hypernatremia Status: Acute Plan: Has resolved with sodium level of 144 <Azul Lam - Last Filed: 06/20/18 12:35> - Assessment (1) Acute kidney failure Code(s): N17.9 - Acute kidney failure, unspecified Status: Acute Plan: Patient seen and examined, agree with above. Creatinine is better , now 2.4, no improvement in Encephalopathy. (2) Bacteremia Code(s): R78.81 - Bacteremia Status: Acute (3) Hypernatremia Code(s): E87.0 - Hyperosmolality and hypernatremia Status: Acute <Aurelia Powell - Last Filed: 06/20/18 21:49>
[2018-06-20] MEDS: Fluconazole 100 MG Tablet PO SCH (14:09)
[2018-06-20] MEDS: Chlorhexidine 0.12% Oral Kit 15 ML UDC OROPHARYNG SCH ×2 (14:09→22:27)
[2018-06-20] MEDS: Heparin - SQ 10,000 UNITS/ML Vial SQ SCH ×2 (14:09→22:27)
[2018-06-20] MEDS: Famotidine PF Inj 20 MG/2 ML Vial IV.PUSH SCH ×2 (14:09→22:28)
[2018-06-20] MEDS: DAPTOmycin Inj 800 MG in Sodium Chlor 0.9% Inj 100 ML IV.SIG SCH (14:10)
[2018-06-21] MEDS: Oral Hygiene Kit OROPHARYNG SCH ×4 (01:15→15:10)
[2018-06-21] MEDS: Ceftaroline Inj 300 MG in Sodium Chlor 0.9% Inj 100 ML IV.SIG SCH (02:23)
[2018-06-21] MEDS: Insulin NovoLIN Regular Correctional Sugar Inj SQ SCH ×4 (03:24→11:24)
--- NOTE | 2018-06-21 03:52 | XR ---
EXAM DATE: 06/21/2018 3:34 AM EST AGE/SEX: 68 years / Male INDICATIONS: Hypoxemia. CLINICAL DATA: This is the patient's subsequent encounter. Patient reports that signs and symptoms h ave been present for 3 weeks and indicates a pain score of Nonresponsive. MEDICAL/SURGICAL HISTORY: Hypertension. Diabetes mellitus type II. Sepsis. Renal failure. He morrhage in the posterior fossa. None. COMPARISON: C, CHEST 1V SINGLE AP, 06/15/2018. . FINDINGS: Gastric and endotracheal tube in place. There is improved aeration of the left lower lung with some r esidual infiltrate present. Right lung is clear. Moderate patient rotation towards the left. Both hem idiaphragms are discernible. CONCLUSION: Improving aeration to the left lower lung with residual patchy infiltrates. Electronically signed by: Shayne Mathews MD Board Certified Radiologist 06/21/2018 3:51 AM EST
[2018-06-21 04:15] LABS: Baso # (Auto) 0.1 th/mm3 (0.0-0.2); Baso % (Auto) 0.8 % (0.0-2.0); Eos # (Auto) 0.2 th/mm3 (0.0-0.4); Eos % (Auto) 2.1 % (0.0-4.0); Hematocrit 23.2 % (39.0-51.0); Hemoglobin 7.9 gm/dL (13.0-17.0); Lymph # (Auto) 1.1 th/mm3 (1.0-4.8); Lymph % (Auto) 11.8 % (9.0-44.0); Mean Corpuscular HGB Conc 33.9 % (32.0-36.0); Mean Corpuscular Hemoglobin 30.3 pg (27.0-34.0); Mean Corpuscular Volume 89.4 fL (80.0-100.0); Mean Platelet Volume 8.8 fL (7.0-11.0); Mono # (Auto) 0.8 th/mm3 (0.0-0.9); Mono % (Auto) 8.5 % (0.0-8.0); Neut # (Auto) 7.4 th/mm3 (1.8-7.7); Neut % (Auto) 76.8 % (16.0-70.0); Platelet Count 247 th/mm3 (150-450); Red Cell Distribution Width 15.7 % (11.6-17.2); White Blood Count 9.6 th/mm3 (4.0-11.0)
[2018-06-21 04:36] LABS: Carbon Dioxide 23.7 meq/L (21.0-32.0); Potassium 4.4 meq/L (3.5-5.1)
[2018-06-21] MEDS ORDERED: Levothyroxine 100 MCG Tablet PO SCH (06:00)
[2018-06-21] MEDS: Famotidine PF Inj 20 MG/2 ML Vial IV.PUSH SCH (08:56)
[2018-06-21] MEDS: Heparin - SQ 10,000 UNITS/ML Vial SQ SCH (08:56)
[2018-06-21] MEDS: Fluconazole 100 MG Tablet PO SCH (08:56)
[2018-06-21] MEDS: Senna/Docusate Sodium 8.6/50 MG Tablet PO SCH (08:57)
[2018-06-21] MEDS: Chlorhexidine 0.12% Oral Kit 15 ML UDC OROPHARYNG SCH (08:57)
--- NOTE | 2018-06-21 10:23 | P.CONPAL ---
Consult Service: Palliative Care Requesting Physician: Ulises Tinoco Reason for Consult: a. To assist with evaluation and management of symptoms including: dyspnea, pain, anxiety b. To assist medical decision maker(s) with: better understanding of current medical conditions; weighing benefits/burdens of medical treatment options; making medical treatment decisions. Primary Care Provider: UNKNOWN History of Present Illness History of Present Illness: This is a 68-year-old male who was transferred from [facility] for intracranial hemorrhage on 06/03/18, accepted by Dr. Hopkins. According to medical records, patient was found down in his mobile home. Upon initial presentation he was alert and oriented though having slurred speech, was febrile , and was reporting a 2-day history of slurred speech and weakness. Prehospital CT of the head showed focal hemorrhage into the right quadrigeminal plate cistern. Follow-up CT after arriving to [place] revealed hemorrhage along the posterior aspect of the brainstem measuring up to 2.8 cm in maximal diameter. Mass-effect on brainstem, no hydrocephalus. He was found to be hypertensive, started on Cardene drip, WBCs were 21.3 with a positive UA, sodium 134, BUN/Ct 50/2.33, bicarb 16, lactic acid 6.8, CPK greater than 3000. Blood cultures done on admission grew gram-positive cocci, MRSA, he was also positive for MRSA in the urine. 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 * 06/08: Repeat brain CT reveals resolving subarachnoid hemorrhage. * 06/09: Patient was intubated for airway management in anticipation of LAURIE and MRI. LAURIE negative for vegetation * Nephrology was also consulted for increasing creatinine of 3.5, sodium 160, bicarb 20.6. * Orthopedics consulted for synovitis/effusion/ meniscal tear. Had aspiration of synovial fluid which was positive for MRSA, felt to be source of septicemia * 06/12: Went to the OR for arthrotomy with irrigation and debridement. * 06/18: No improvement in neurologic function. Basically remains largely unresponsive aside from occasional eye-opening to noxious stimulation. Persistent positive bloodstream cultures. Dependent on mechanical ventilation. * 06/21: Patient has persistent fever and infection not responding to antibiotics. WBCs 9.6. Repeat urine 06/14 still positive, now with E. coli ESBL. Blood cultures done 06/18+ remains on ventilator needs trach and PEG soon. Palliative care consulted to discuss goals of care with son who will be arriving today. At time of my visit today, patient is in bed remains mechanically ventilated, has not had sedation in several days. He opens eyes slightly spontaneously, does not track or focus, and does not follow any commands. Spoke with Dr. Tinoco regarding current status. Dr. 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 Patient has now had several strokes, including a brainstem hemorrhage, further compounding his clinical course. Met with patient's son, sister, and ex- to discuss goals of care. Dual visit with Dr. Tinoco who discusses persistent infection as well as no improvement in neurological status despite being off of sedation for several days now, and use of multiple antibiotics for the infection. Discussed how persistent infection would likely result in profound debility even if patient were to survive this hospitalization. Also discussed that aside from bacteremia , patient still has severe neurological dysfunction secondary to ICH. Advised that patient has not required any sedation in several days and he is not having any neuro improvement. Son states that his father would not want to live this way, he would not want to live if he could not ride his motorcycle. He reports a few days prior to patient going to the emergency room he was of normal health. Sister reports he did have a cortisone injection prior to coming to [place] and questions if that had any effect on the infection source. Discussed source of MRSA infection was felt to be from infected knee leading to orthopedic surgery, however infections has persisted despite intervention. They also voiced concerns of cleaning out the patient's RV that may be contaminated with MRSA. Discussed hand hygiene and universal precautions. Sister reports patient had recurrent infections over the past few years, had UA done just prior to coming to [place] suspicious for UTI. 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 At this time family is in agreement of withdrawal of life support and transitioning to comfort care. Briefly explored hospice, son agreeable to meeting in the coming days if patient survives the night. Function/Cognitive Trajectory: Prior to this hospitalization, patient was independent. He was here visiting for the winter. He was very active per family reports. Review of Systems Constitutional: Reports weakness Eyes: Denies change in vision Ears, Nose, Mouth, and Throat: Denies abnormal hearing Cardiovascular: Denies chest pain Respiratory: Denies cough, Denies wheezing Gastrointestinal: Denies abdominal pain, Denies loose stools, Denies nausea, Denies vomiting Genitourinary: Reports urinary frequency (had UA done just before coming to [place] for suspected UTI) Musculoskeletal: Denies abnormal walking Skin/Breast: Reports new lesions (abrasion s/p fall ) Neurologic: Denies abnormal hearing Psychiatric: Denies abnormal sleep pattern Endocrine: Denies cold intolerance Hematologic/Lymphatic: Denies easy bleeding Allergic/Immunologic: Denies GI upset with certain foods obtained from family [facility] - History History Provided By: Family Member, Medical Record - Medical History Medical History: Medical History (Last Reviewed 06/21/18 @ 11:57 by RUBEN Garvey) Diabetes History of MRSA infection Onset Date: ~06/03/18 History of infection due to ESBL Escherichia coli Onset Date: ~06/07/18 Hypertension Obesity UTI (urinary tract infection) - Social History I have reviewed the patient's Social History: Yes - Tobacco History Second Hand Smoke Exposure: No Tobacco Use In Past 30 Days: Yes Smoking Status: Current every day smoker Tobacco Type: Cigarettes Packs Per Day: 1 - Alcohol History How Often Do You Have a Drink Containing Alcohol: Never - Substance Use History Substance History: No History of Abuse - Immunization History Tetanus Immunization: >5 Years Hx Influenza Vaccine This Season: No Medications and Allergies Active Medications: Active Medications Acetaminophen (Tylenol) 650 mg PO Q6H PRN PRN Reason: PAIN 1-10 AND/OR FEVER >101F Last Admin: 06/17/18 13:42 Dose: 650 mg Al Hydroxide/Mg Hydroxide (Milk Of Magnesia Liq) 30 ml PO Q12H PRN PRN Reason: Mild Constipation Last Admin: 06/12/18 18:52 Dose: 30 ml Albuterol (Duoneb Neb (Prn)) 1 ampul NEB Q2HR NEB PRN PRN Reason: WHEEZING Last Admin: 06/14/18 10:57 Dose: 1 ampul Bisacodyl (Dulcolax Supp) 10 mg RECTAL DAILY PRN PRN Reason: SEVERE CONSITIPATION Chlorhexidine Gluconate (Peridex 0.12% Oral Kit) 15 ml OROPHARYNG BID@0800, 2000 [facility] Last Admin: 06/21/18 08:57 Dose: 15 ml Clonidine HCl (Catapres) 0.1 mg PO Q6H PRN PRN Reason: SBP>160, DBP>90 Dextrose (D50w Vial) 50 ml IV.PUSH UNSCH PRN PRN Reason: PER HYPOGLYCEMIA PROTOCOL Famotidine (Pepcid Pf Inj) 10 mg IV.PUSH Q12HR JACOB Last Admin: 06/21/18 08:56 Dose: 10 mg Fluconazole (Diflucan) 100 mg PO DAILY JACOB Stop: 06/23/18 10:29 Last Admin: 06/21/18 08:56 Dose: 100 mg Furosemide (Lasix Inj) 40 mg IV.PUSH BID@0900,1800 [facility] Last Admin: 06/21/18 08:56 Dose: 40 mg Glucagon (Glucagon Inj) 1 mg OTHER PRN PRN PRN Reason: for Hypoglycemia Protocol Heparin Sodium (Porcine) (Heparin Inj) 5,000 units SQ Q12HR [facility] Last Admin: 06/21/18 08:56 Dose: 5,000 units Levetiracetam 500 mg/ Sodium (Chloride) 105 mls @ 400 mls/hr IV.SIG Q12H [facility] Last Infusion: 06/21/18 03:43 Dose: Infused Sodium Phosphate 30 mmol/ (Sodium Chloride) 260 mls @ 42 mls/hr IV.SIG UNSCH PRN PRN Reason: For Phosphorus < 2.5 mg/dL Norepinephrine Bitartrate (Levophed-Dextrose 4 Mg/250 Ml Drip) 4 mg in 250 mls @ 7.5 mls/hr IV.SIG TITRATE PRN; Protocol PRN Reason: Per Protocol Daptomycin 800 mg/ Sodium (Chloride) 100 mls @ 200 mls/hr IV.SIG Q24H JACOB Last Infusion: 06/20/18 14:40 Dose: Infused Ceftaroline Fosamil 300 mg/ (Sodium Chloride) 100 mls @ 100 mls/hr IV.SIG Q12H JACOB Last Infusion: 06/21/18 03:43 Dose: Infused Insulin Human Regular (Novolin R Correctional Sugar Inj) 0 units SQ Q6HR JACOB; Protocol Last Admin: 06/21/18 06:34 Dose: 1 units Labetalol HCl (Trandate Inj) 10 mg IV.PUSH Q2H PRN PRN Reason: BP > 140/90 Last Admin: 06/16/18 06:34 Dose: 10 mg Lactulose (Lactulose Liq) 30 ml PO DAILY PRN PRN Reason: SEVERE CONSITIPATION Last Admin: 06/14/18 00:55 Dose: 30 ml Levothyroxine Sodium (Synthroid) 100 mcg PO DAILY@0600 [facility] Last Admin: 06/21/18 05:52 Dose: 100 mcg Miscellaneous Medication () 1 each OROPHARYNG 0000,0400,1200,1600 [facility] Last Admin: 06/21/18 03:26 Dose: 1 each Multi-Ingredient Ointment (Blistex Lip [place]) 1 applic TOPICAL UNSCH PRN PRN Reason: FOR DRY LIPS Last Admin: 06/16/18 12:48 Dose: 1 applic Rifampin (Rifampin) 300 mg PO Q12H [facility] Last Admin: 06/21/18 02:23 Dose: 300 mg Senna/Docusate Sodium (Shasha-Colace) 1 tab PO BID [facility] Last Admin: 06/21/18 08:57 Dose: 1 tab Sennosides (Senokot) 17.2 mg PO Q12H PRN PRN Reason: Moderate Constipation Last Admin: 06/12/18 18:52 Dose: 17.2 mg Sodium Chloride (Ns Flush) 2 ml IV.FLUSH BID [facility] Last Admin: 06/21/18 08:57 Dose: 2 ml Sodium Chloride (Ns Flush) 2 ml IV.FLUSH PRN PRN PRN Reason: FLUSH AFTER USING IV ACCESS Last Admin: 06/12/18 20:08 Dose: 2 ml Sterile Water (Free Water) 250 ml G-TUBE Q8HR [facility] Last Admin: 06/21/18 05:52 Dose: 250 ml Terbutaline Sulfate (Brethine Inj) 1 mg SQ UNSCH PRN PRN Reason: For Extravasation Allergies Allergy/AdvReac Type Severity Reaction Status Date / Time No Known Allergies Allergy Verified 06/03/18 01:32 Advance Directives Living Will: No Healthcare Surrogate: No Power of Orchid Hand: No Physical Exam Vital Signs: Vital Signs - 24 hr 06/20/18 10:00 06/20/18 11:00 06/20/18 12:00 Temperature 100.0 F H 100.2 F H 99.9 F H Pulse Rate 67 77 75 Respiratory Rate 15 15 15 Blood Pressure 114/55 L 143/65 H 135/63 Pulse Oximetry 100 100 100 06/20/18 12:05 06/20/18 13:00 06/20/18 14:00 Temperature 99.9 F H 100.0 F H Pulse Rate 68 67 Respiratory Rate 20 15 15 Blood Pressure 124/58 L 123/57 L Pulse Oximetry 100 100 100 06/20/18 15:00 06/20/18 16:00 06/20/18 16:06 Temperature 100.0 F H 99.9 F H Pulse Rate 67 78 Respiratory Rate 15 22 Blood Pressure 126/59 L 141/65 H Pulse Oximetry 100 100 100 06/20/18 17:00 06/20/18 18:00 06/20/18 19:00 Temperature 99.7 F H 100.0 F H 100.0 F H Pulse Rate 74 74 76 Respiratory Rate Blood Pressure 127/61 129/63 133/63 Pulse Oximetry 100 100 100 06/20/18 20:00 06/20/18 20:37 06/20/18 21:00 Temperature 100.2 F H 100.2 F H Pulse Rate 78 82 Respiratory Rate 24 Blood Pressure 138/65 133/63 Pulse Oximetry 100 100 100 06/20/18 22:00 06/20/18 23:00 06/20/18 23:22 Temperature 100.4 F H 100.2 F H Pulse Rate 77 92 H Respiratory Rate 25 H Blood Pressure 119/56 L 134/60 Pulse Oximetry 100 100 98 06/21/18 00:00 06/21/18 01:00 06/21/18 02:00 Temperature 100.4 F H 100.4 F H 100.6 F H Pulse Rate 89 84 91 H Respiratory Rate Blood Pressure 133/63 140/62 141/63 H Pulse Oximetry 93 L 100 94 L 06/21/18 03:00 06/21/18 03:32 06/21/18 04:00 Temperature 100.6 F H 100.4 F H Pulse Rate 96 H 97 H Respiratory Rate 28 H Blood Pressure 150/68 H 157/67 H Pulse Oximetry 91 L 94 L 99 06/21/18 05:00 06/21/18 06:00 06/21/18 07:00 Temperature 100.4 F H 100.4 F H 100.4 F H Pulse Rate 96 H 97 H 92 H Respiratory Rate Blood Pressure 143/65 H 146/65 H 134/62 Pulse Oximetry 100 99 100 06/21/18 08:00 06/21/18 09:00 Temperature 100.2 F H 100.0 F H Pulse Rate 92 H 85 Respiratory Rate Blood Pressure 135/60 126/60 Pulse Oximetry 100 100 I&O: Intake & Output 06/19/18 06/20/18 06/21/18 06/22/18 06:59 06:59 06:59 06:59 Intake Total 5236.250 / 5236.250 3477.625 / 3477.625 1340 / 1340 Output Total 4975 / 4975 2245 / 2245 3660 / 3660 Balance 261.250 / 106.542 4074.625 / 1232.625 -2320 / -2320 Weight 129.8 kg 128.5 kg Physical Exam: CONSTITUTIONAL/GENERAL: This is an adequately nourished patient, mechanically ventilated. TUBES/LINES/DRAINS: ET tube, NG tube, Hays, peripheral IV, TLC SKIN: Pale, scattered areas of discolored skin on both feet. Scab below left knee well healing left lateral thigh dsg D&I. Skin warm. Not diaphoretic. HEAD: Atraumatic. Normocephalic. EYES: pupils equal, no tracking. Squeezes eyes shut when examining. ENT: Nose without bleeding or purulent drainage. Unable to visualize throat due to ET tube. Dried blood in mouth. NECK: Trachea midline. Supple, nontender. No palpable thyroid enlargement or nodularity. CARDIOVASCULAR: Regular rate and rhythm without murmurs. No JVD. Peripheral pulses symmetric. RESPIRATORY/CHEST: Symmetric, unlabored respirations. Clear to auscultation. Breath sounds equal bilaterally. No wheezes, rales, or rhonchi. GASTROINTESTINAL: Abdomen soft, non-tender, nondistended. No hepato-splenomegaly , or palpable masses. Bowel sounds present. GENITOURINARY: Without palpable bladder distension. Hays catheter in place. MUSCULOSKELETAL: Extremities without clubbing, cyanosis, or edema. No mottling or clubbing. LYMPHATICS: No palpable cervical or supraclavicular adenopathy. NEUROLOGICAL: Unresponsive. No tracking, does not follow commands. PSYCHIATRIC: No obvious anxiety/depression. no apparent hallucinations or other psychotic thought process. Diagnostic Tests Laboratory: Laboratory Results - last 72 hr 06/16/18 06/18/18 06/18/18 12:13 11:38 17:11 WBC RBC Hgb Hct MCV MCH MCHC RDW Plt Count MPV Neut % (Auto) Lymph % (Auto) [place] % (Auto) Eos % (Auto) Baso % (Auto) Neut # (Auto) Lymph # (Auto) [place] # (Auto) Eos # (Auto) Baso # (Auto) WBC Differential Differential Comment Sodium Potassium Chloride Carbon Dioxide Anion Gap BUN Creatinine Estimated GFR POC Glucose 185 H 158 H Random Glucose Calcium Thiamine 56 L Methylmalonic Acid 1.37 H 06/19/18 06/19/18 06/19/18 00:04 04:30 04:30 WBC 10.0 RBC 2.57 L Hgb 7.8 L Hct 23.1 L MCV 89.7 MCH 30.4 MCHC 33.8 RDW 15.7 Plt Count 284 MPV 8.6 Neut % (Auto) 77.3 H Lymph % (Auto) 12.8 [place] % (Auto) 7.8 Eos % (Auto) 1.6 Baso % (Auto) 0.5 Neut # (Auto) 7.7 Lymph # (Auto) 1.3 [place] # (Auto) 0.8 Eos # (Auto) 0.2 Baso # (Auto) 0.1 WBC Differential . Differential Comment Auto diff final Sodium 145 Potassium 4.1 Chloride 114 H Carbon Dioxide 22.0 Anion Gap 9 BUN 79 H Creatinine 2.41 H Estimated GFR 27 L POC Glucose 151 H Random Glucose 147 H Calcium 8.2 L Thiamine Methylmalonic Acid 06/19/18 06/19/18 06/19/18 06:09 11:38 16:54 WBC RBC Hgb Hct MCV MCH MCHC RDW Plt Count MPV Neut % (Auto) Lymph % (Auto) [place] % (Auto) Eos % (Auto) Baso % (Auto) Neut # (Auto) Lymph # (Auto) [place] # (Auto) Eos # (Auto) Baso # (Auto) WBC Differential Differential Comment Sodium Potassium Chloride Carbon Dioxide Anion Gap BUN Creatinine Estimated GFR POC Glucose 147 H 178 H 165 H Random Glucose Calcium Thiamine Methylmalonic Acid 06/20/18 06/20/18 06/20/18 00:41 05:02 05:02 WBC 9.5 RBC 2.48 L Hgb 7.6 L Hct 22.1 L MCV 89.3 MCH 30.5 MCHC 34.2 RDW 15.5 Plt Count 252 MPV 8.6 Neut % (Auto) 77.8 H Lymph % (Auto) 11.4 [place] % (Auto) 8.8 H Eos % (Auto) 1.4 Baso % (Auto) 0.6 Neut # (Auto) 7.4 Lymph # (Auto) 1.1 [place] # (Auto) 0.8 Eos # (Auto) 0.1 Baso # (Auto) 0.1 WBC Differential . Differential Comment Auto diff final Sodium 144 Potassium 4.1 Chloride 112 H Carbon Dioxide 23.9 Anion Gap 8 BUN 78 H Creatinine 2.45 H Estimated GFR 26 L POC Glucose 189 H Random Glucose 158 H Calcium 8.3 L Thiamine Methylmalonic Acid 06/20/18 06/21/18 06/21/18 14:21 00:06 03:38 WBC RBC Hgb Hct MCV MCH MCHC RDW Plt Count MPV Neut % (Auto) Lymph % (Auto) [place] % (Auto) Eos % (Auto) Baso % (Auto) Neut # (Auto) Lymph # (Auto) [place] # (Auto) Eos # (Auto) Baso # (Auto) WBC Differential Differential Comment Sodium 144 Potassium 4.4 Chloride 112 H Carbon Dioxide 23.7 Anion Gap 8 BUN 84 H Creatinine 2.53 H Estimated GFR 25 L POC Glucose 180 H 165 H Random Glucose 158 H Calcium 9.0 Thiamine Methylmalonic Acid 06/21/18 06/21/18 03:38 06:09 WBC 9.6 RBC 2.60 L Hgb 7.9 L Hct 23.2 L MCV 89.4 MCH 30.3 MCHC 33.9 RDW 15.7 Plt Count 247 MPV 8.8 Neut % (Auto) 76.8 H Lymph % (Auto) 11.8 [place] % (Auto) 8.5 H Eos % (Auto) 2.1 Baso % (Auto) 0.8 Neut # (Auto) 7.4 Lymph # (Auto) 1.1 [place] # (Auto) 0.8 Eos # (Auto) 0.2 Baso # (Auto) 0.1 WBC Differential . Differential Comment Auto diff final Sodium Potassium Chloride Carbon Dioxide Anion Gap BUN Creatinine Estimated GFR POC Glucose 164 H Random Glucose Calcium Thiamine Methylmalonic Acid Result Diagrams: 06/21/18 03:38 06/21/18 03:38 Microbiology: Microbiology 06/18/18 06:08 Aerobic Blood Culture - Final Blood - Peripheral S. aureus MRSA Anaerobic Blood Culture - Preliminary No growth in 2 days 06/16/18 05:53 Aerobic Blood Culture - Final Blood - Peripheral S. aureus MRSA Anaerobic Blood Culture - Preliminary No growth in 4 days 06/12/18 13:10 Fungal Smear - Final Other No fungal elements seen Fungal Culture - Preliminary No growth in 1 week 06/12/18 13:10 Acid Fast Bacilli Smear - Final Other No acid fast bacilli seen Mycobacterial Culture - Preliminary No growth in 1 week 06/12/18 13:09 Fungal Smear - Final Tissue - Knee No fungal elements seen Fungal Culture - Preliminary No growth in 1 week 06/12/18 13:09 Acid Fast Bacilli Smear - Final Tissue - Knee No acid fast bacilli seen Mycobacterial Culture - Preliminary No growth in 1 week 06/15/18 13:50 Aerobic Blood Culture - Final Blood - Peripheral S. aureus MRSA Anaerobic Blood Culture - Final S. aureus MRSA 06/13/18 18:50 Aerobic Blood Culture - Final Blood - Peripheral S. aureus MRSA Anaerobic Blood Culture - Final No growth in 5 days 06/13/18 19:00 Aerobic Blood Culture - Final Blood - Peripheral S. aureus MRSA Anaerobic Blood Culture - Final No growth in 5 days Imaging: Impressions Chest X-Ray 06/21/18 04:00 CONCLUSION: Improving aeration to the left lower lung with residual patchy infiltrates. Procedures: 06/09: Intubated, synovial aspiration 06/10: LAURIE 06/11: OR for arthrotomy Patient/Family Conference Present at Family Conference: Patient's son Abraham, his sister, and ex- Family Conference Location: Consult Room Issues Discussed: * Palliative care role, purpose, approach * Additional medical, psychosocial, and spiritual history * Patients general health, functional status, and cognitive changes in the months leading up to the current hospitalization * Patient/family understanding of the current medical problems * Patient/family understanding of prognosis * Patients goals of care as best understood from advance directives and/or conversations and/or values * Current medical treatment options and benefits/burdens of those options * Likely scenarios comparing ongoing aggressive care with a transition to comfort measures only * Questions answered to the best of my ability * Palliative care contact information provided * Withdraw of life support Assessment and Plan - Disease Oriented Problem List (1) Sepsis (2) Respiratory failure (3) SAH (subarachnoid hemorrhage) - Symptom Scale (1) Pain 0-10 Scale: Unable to quantify (2) Dyspnea 0-10 Scale: Unable to quantify (3) Anxiety 0-10 Scale: Unable to quantify Pertinent Non-Medical Issues: Psychosocial: Mr. Bautista was is from [facility]. He was visiting here for the winter. He is with one son. 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 After snf, he enjoyed riding his motorcycle. Spiritual: Manager Advertising available Legal: Patient is currently past stated to make his own decisions, and will likely not regain capacity. Per [place] statutes, patient's only biological child would be the appropriate legal proxy. Ethical issues impacting care: none Important Contacts: Romeo Rosario [phone] Prognosis: Patient has remained septic for greater than 2 weeks now despite multiple interventions, including arthrotomy for suspected source of septicemia, without success. He is also suffered intracranial hemorrhage involving the brainstem further compounding his medical conditions. He has remained unresponsive and mechanically ventilated, has not had sedation in several days, has not tolerated CPAP trials. Life expectancy hours to days post withdraw from ventilator. Code Status: No Code DNR Plan: Legal decision maker: Patient is currently past stated to make his own decisions , and will likely not regain capacity. Per [place] statutes, patient's only biological child would be the appropriate legal proxy. Goals: Compassionate withdrawal of life support CODE STATUS: Full code SYMPTOMS: --Pain: patient had a history of pain prior to hospitalization. Has undergone several's procedures since admission likely to contribute to pain. Has pain medicines ordered as needed as well as scheduled. We will continue to monitor closely --Dyspnea: Patient has not been able to wean from the ventilator. Failing daily CPAP trials. Family would like compassionate withdrawal from ventilator and are hoping for a peaceful . Medications ordered for anxiety/dyspnea. We will continue to monitor --Anxiety: Anticipatory anxiety secondary to end-of-life, respiratory failure, pain. Has Ativan ordered for pre-, at time of, and after withdrawal from vent. Palliative care will continue to follow during hospital course as condition evolves, to assist patient/decision-maker with understanding of medical conditions, weighing benefits/burdens of treatment options, for clarification of goals of treatment. Additionally will assist with any symptoms of palliative concern Appreciation Thank you for the opportunity to participate in the care of Ezra Bautista.
[2018-06-21] MEDS: HYDROmorphone PF Inj 1 MG/ML Ampul IV.PUSH SCH ×2 (11:45→15:09)
[2018-06-21] MEDS ORDERED: Hyoscyamine Inj 0.5 MG/ML Ampul IV.PUSH ONE (12:00)
[2018-06-21] MEDS ORDERED: HYDROmorphone PF Inj 1 MG/ML Ampul IV.PUSH ONE ×2 (12:00→12:30)
[2018-06-21] MEDS ORDERED: Acetaminophen 650 MG Supp RECTAL PRN (12:30)
[2018-06-21] MEDS ORDERED: Hyoscyamine Inj 0.5 MG/ML Ampul IV.PUSH PRN (12:30)
[2018-06-21] MEDS: HYDROmorphone PF Inj 1 MG/ML Ampul IV.PUSH PRN ×2 (13:36→16:41)
--- NOTE | 2018-06-21 13:40 | P.PNCC ---
Subjective Subjective Remarks/Hospital Course: 06/03: Patient is a 68-year-old male with past medical history significant for type 2 diabetes, hypertension, morbid obesity who presented to the [facility] emergency department with weakness and slurred speech. Symptoms present for 2 days, apparently he was found on the floor of his mobile home. He was noted to have high fever at the [facility] his WBC count was 21.3 UA was positive. His sodium was 134 BUN 50 with a creatinine of 2.33 bicarb was 16 lactic acid was 6.8. CPK more than 3000 at the outside hospital. A CT of the head showed focal hemorrhage into the right quadrigeminal plate cistern. Dr. Hopkins was contacted who accepted the patient and requested admission to critical care. Patient was accepted to [facility] at [place] Dr. Deluca evaluated the patient in the [facility], he is lying in the bed. Slightly tachypneic moderate distress. Patient is oriented to place and person. CT of the head repeated here at [place] showed hemorrhage along the posterior aspect of the brainstem measuring up to 2.8 cm in maximal diameter. Mild mass effect on the brainstem. No hydrocephalus. I have started the patient on Cardene infusion for tight blood pressure control. Zosyn for UTI. 2% saline will be started to keep sodium above 150. Avoid mannitol due to renal failure. Keppra for seizure prophylaxis. I am unable to find coags but platelet count was normal. 06/04: MRSA bacteremia ob blood cultures drawn on admission. Currently on precedex, on room air. Awake, follows commands, speech, unintelligible. Started on IV vanc. ID consulted as concern for septic emboli/ endocarditis as cause for brainstem bleed. 06/05: 48 hours following a mid brain spontaneous hemorrhage complicated by numerous MRSA blood cultures. Blood pressure acceptably well controlled. Fever pattern persists. Patient tolerating extubation and protecting airway adequately. Taper completely off Precedex. Serum osmolality acceptably concentrated. 06/06: Serum osmolality acceptable, will allow sodium to drift back into the lower 150s now. Patient is alert and interactive. He moves 4 limbs spontaneously. Episodic fevers to 102+. We will continue with infectious disease workup for source of bacteremia. Endocarditis remains high on the list of possibilities. 06/07: Awake, alert, following commands. Speech very slurred however responds appropriately. Slight disorientation. Thought he was in [place]. Knows he is in the hospital. Complains of back pain. 06/08: Drowsy, arousable, tachypneic. Sodium up to 163, started on D5W and free water. Creatinine up. Tolerating tube feeds. Awaiting MRI. Will need LAURIE. Will need intubation probably for airway and in order to transport for MRI and LAURIE. 06/09: Patient intubated and placed on mechanical ventilation on 06/09. Dr. Hopkins has cleared patient for LAURIE/anticoagulation/valve surgery if needed. We are awaiting LAURIE for further evaluation of MRSA bacteremia by cardiology to determine source. Orthopedics evaluating left knee synovitis/effusion/meniscal tear. 06/10: Underwent aspiration of the left knee yesterday which is growing MRSA. Remains sedated, orally intubated on mechanical ventilation. Underwent LAURIE today which did not reveal any vegetation. Being followed by orthopedics/ID/ neurosurgery. 06/11: Remains orally intubated on mechanical ventilation. Scheduled for OR for left knee septic arthritis with Dr. Carlson. 06/12: Remains orally intubated on mechanical ventilation. Waiting for OR for left knee septic arthritis with Dr. Carlson 06/13: Remains intubated sedated. On sedation hold localizes to pain. Status post left knee lateral arthrotomy with irrigation and debridement. Fluid culture growing MRSA 06/14: Remains intubated sedated. On sedation hold now not waking up or following commands weakly withdraws extremities. WBC count increasing. Sodium coming down with hypotonic saline. 06/15: All sedation now held more than 36 hours. No significant improvement in mentation. Spontaneously moving upper extremity withdraws lowers to pain. CT of the head yesterday essentially unchanged with resolution of previously seen subarachnoid hemorrhage in the basal cisterns 06/16: Failed CPAP after 20 minutes this morning due to erratic and rapid respiratory effort. Opens eyes with movement but does not focus or track. 06/17: We will need to discuss tracheostomy with his son this morning. No improvement in neurologic function overnight. Continues to fail efforts at spontaneous breathing trials. Hypokalemia needs gingerly replacement this morning. 06/18: No improvement in neurologic function. Basically remains largely unresponsive aside from occasional eye-opening to noxious stimulation. Persistent positive bloodstream cultures. Dependent on mechanical ventilation. 06/19: Little improvement if any in neurologic function. Unable to wean from mechanical ventilation. Continue to hold all sedation and pain medication. 06/20: No significant improvement in neurologic function. Unable to wean from mechanical ventilation. We are holding off on tracheostomy until his son arrives as he may decide to forego additional aggressive care. Still behaves as though an endovascular source is responsible for the ongoing bacteremia. Despite the transesophageal echo report he sure behaves like someone with bacterial endocarditis. 06/21: Remains encephalopathic, orally intubated on mechanical ventilation. Objective Vital Signs / I&O: Vital Signs 06/20/18 14:00 06/20/18 15:00 06/20/18 16:00 Temperature 100.0 F H 100.0 F H 99.9 F H Pulse Rate 67 67 78 Respiratory Rate 15 15 Blood Pressure 123/57 L 126/59 L 141/65 H Pulse Oximetry 100 100 100 06/20/18 16:06 06/20/18 17:00 06/20/18 18:00 Temperature 99.7 F H 100.0 F H Pulse Rate 74 74 Respiratory Rate 22 Blood Pressure 127/61 129/63 Pulse Oximetry 100 100 100 06/20/18 19:00 06/20/18 20:00 06/20/18 20:37 Temperature 100.0 F H 100.2 F H Pulse Rate 76 78 Respiratory Rate 24 Blood Pressure 133/63 138/65 Pulse Oximetry 100 100 100 06/20/18 21:00 06/20/18 22:00 06/20/18 23:00 Temperature 100.2 F H 100.4 F H 100.2 F H Pulse Rate 82 77 92 H Respiratory Rate Blood Pressure 133/63 119/56 L 134/60 Pulse Oximetry 100 100 100 06/20/18 23:22 06/21/18 00:00 06/21/18 01:00 Temperature 100.4 F H 100.4 F H Pulse Rate 89 84 Respiratory Rate 25 H Blood Pressure 133/63 140/62 Pulse Oximetry 98 93 L 100 06/21/18 02:00 06/21/18 03:00 06/21/18 03:32 Temperature 100.6 F H 100.6 F H Pulse Rate 91 H 96 H Respiratory Rate 28 H Blood Pressure 141/63 H 150/68 H Pulse Oximetry 94 L 91 L 94 L 06/21/18 04:00 06/21/18 05:00 06/21/18 06:00 Temperature 100.4 F H 100.4 F H 100.4 F H Pulse Rate 97 H 96 H 97 H Respiratory Rate Blood Pressure 157/67 H 143/65 H 146/65 H Pulse Oximetry 99 100 99 06/21/18 07:00 06/21/18 08:00 06/21/18 09:00 Temperature 100.4 F H 100.2 F H 100.0 F H Pulse Rate 92 H 92 H 85 Respiratory Rate Blood Pressure 134/62 135/60 126/60 Pulse Oximetry 100 100 100 06/21/18 09:40 06/21/18 10:00 06/21/18 11:00 Temperature 99.5 F 99.1 F Pulse Rate 89 87 Respiratory Rate 24 Blood Pressure 133/63 133/62 Pulse Oximetry 98 100 100 06/21/18 12:00 Temperature Pulse Rate 118 H Respiratory Rate Blood Pressure Pulse Oximetry Intake & Output 06/20/18 06/21/18 06/21/18 18:59 06:59 18:59 Intake Total 305 / 305 1035 / 1035 Output Total 2210 / 2210 1450 / 1450 Balance -1905 / -1905 -415 / -415 Weight 128.5 kg Intake: IV 305 / 305 205 / 205 Teflaro Inj 300 MG In NS Inj 100 / 100 100 / 100 100 ML @ 100 mls/hr IV.SIG Q12H [facility] Rx#:[id number] Cubicin Inj 800 MG In NS Inj 100 / 100 100 ML @ 200 mls/hr IV.SIG Q24H [facility] Rx#:[id number] Keppra Inj 500 MG In NS Inj 100 105 / 105 105 / 105 ML @ 400 mls/hr IV.SIG Q12H [facility] Rx#:[id number] Tube Feeding 330 / 330 Water Bolus Amount 500 / 500 Output: Urine Amount (Catheter) 2210 / 2210 1450 / 1450 Indwelling Urethral Catheter 2210 / 2210 1450 / 1450 Other: Date of Last Bowel Movement 06/20/18 06/20/18 06/20/18 # Bowel Movements 0 Result Diagrams: 06/21/18 03:38 06/21/18 03:38 Objective Remarks: GENERAL: Ill appearing 68-year-old male, largely unresponsive HEAD: Atraumatic. Normocephalic. EYES: Pupils equal and round. No conjunctival icterus. ENT: No nasal bleeding or discharge. Orotracheal intubation. CARDIOVASCULAR: Normal S1-S2. No murmurs, rubs. Regular rate and rhythm. No JVD. RESPIRATORY: Few persistent scattered rhonchi, acceptable excursions on mechanical ventilation. No wheezes. Strong cough when suctioned GASTROINTESTINAL: Abdomen soft, non-tender, nondistended. BS present. No guarding. MUSCULOSKELETAL: Warm, well perfused. NEUROLOGICAL: Encephalopathic, orally intubated, Pupils equal 2 mm, reactive. Patient localizes to pain with LUE, minimally withdraws the lower extremities. Opens eyes sometime stimulation but does not focus or track. Assessment and Plan - Problem List (1) 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 Status: Acute (2) Encephalopathy acute Code(s): G93.40 - Encephalopathy, unspecified Status: Acute (3) Acute kidney failure Code(s): N17.9 - Acute kidney failure, unspecified Status: Acute (4) Severe sepsis Code(s): A41.9 - Sepsis, unspecified organism; R65.20 - Severe sepsis without septic shock Status: Acute (5) Metabolic acidemia Code(s): E87.2 - Acidosis Status: Acute (6) UTI (urinary tract infection) Code(s): N39.0 - Urinary tract infection, site not specified Status: Acute (7) Lactic acidosis Code(s): E87.2 - Acidosis Status: Acute (8) Rhabdomyolysis Code(s): M62.82 - Rhabdomyolysis Status: Acute (9) Obesity Code(s): E66.9 - Obesity, unspecified Status: Chronic (10) Hypertension Code(s): I10 - Essential (primary) hypertension Status: Chronic (11) Diabetes Code(s): E11.9 - Type 2 diabetes mellitus without complications Status: Chronic - Assessment and Plan Plan: NEURO: Brainstem hemorrhage measuring up to 2.8 cm in maximal diameter, mild mass effect Metabolic encephalopathy -Repeat CT 06/14: Subarachnoid hemorrhage in the basal cisterns as resolved. -EEG done yesterday 06/14/2018 shows moderate encephalopathy -Neurosurgery Dr. Hopkins -Currently on free water/1/2 NS for hypernatremia -Close neuro monitoring. Prev MRI/MRA brain results noted -Head CT 06/08 shows resolving brainstem hemorrhage. -Keppra for seizure prophylaxis -Discontinue all sedation DC propofol, Precedex, Fentanyl -With MRSA bacteremia suspect septic emboli with mycotic aneurism vs hypertensive bleed. -MRI spine reviewed, no evidence of epidural abscess -MRI head with numerous small ischemic infarcts, embolic in appearance -Continues largely unresponsive 06/20/18 RESP: Acute respiratory failure on mechanical ventilation Past smoking -DuoNeb every as needed -Continue mechanical ventilation, vent bundle, bronchodilators as needed -Daily CPAP trials. -Mental status will not permit extubation -Intubated on 06/08/2018, vent day 12 patient, will need tracheostomy. -Holding off on tracheostomy as son, when he arrives, may well decide against it. CV: Lactic acidemia Hypotension History of hypertension -Initial lactic acid at the outside hospital was 6.8 -Resuscitated with normal saline IV fluids, transthoracic echo -Half NS due to hypernatremia -Cardiology Dr. Odonnell consulted to perform LAURIE to evaluate for endocarditis - no vegetations seen -LAURIE 06/10 negative for any vegetations. GI: -Enteral feeds at goal through nasogastric tube : Acute kidney injury Rhabdomyolysis -Monitor renal function closely. Replace [place] catheter due to candiduria, repeat culture -Strict intake output, monitor and replete electrolytes. -Nephrology following for rising creatinine-suspect multifactorial secondary to sepsis/vancomycin/gentamicin toxicity/IV contrast exposure. -Replace electrolyte losses. ID: Severe sepsis ESBL E. coli UTI MRSA bacteremia MRSA left knee septic arthritis -On Cubicin. Cefepime changed to Invanz on 06/10 for ESBL E. coli in urine culture -Status post left knee lateral arthrotomy with irrigation and debridement. Fluid culture growing MRSA -s/p MRI left knee due to swelling -orthopedics performed left knee aspiration on 06/09 with drainage of 60 cc of purulent cloudy fluid which is growing MRSA. -Vancomycin and gentamicin discontinued on 06/08 per ID due to worsening renal function. Blood cultures positive for MRSA (10/07) - ID Dr. Rodriguez -LAURIE negative for vegetation on 06/10 -Ortho following and to decide further management for left knee septic arthritis - HEME: Leukocytosis secondary to sepsis -Monitor CBC, coags ENDO: Type 2 diabetes -Sliding scale insulin -Basal long-acting insulin PROPH: -Bilateral lower extremity SCDs. IV famotidine. Subcutaneous heparin for DVT prophylaxis LINES: -Utilize peripheral IVs, central line if needed Overall impression: Blood pressure control remains problematic and will need additional scheduled medication. Agitation appears better controlled. Bacteremia remains persistent and possibly life-threatening problem. Neurologic status poor and unstable. 06/08: D/W Dr. Hopkins. called patient's son Abraham Bautista at [phone] and updated him regarding current clinical status and plan to intubate and place on mech ventilation due to concern regarding airway protection and in order to safely get imaging and possibly LAURIE and he voiced understanding and was agreeable. Will call again today 06/19: We continue to touch base with Abraham Bautista, the patient's son in [place]. I have expressed the poor prognosis to the son but he does not anticipate getting down here until after [place]. I encouraged him and his aunt to come down right away if they can so that we are able to make some formal decisions about Ezra's long-term care. The son expressed he will try to calm down the week of June 21. I have asked the palliative care service to see Mr. Bautista Thursday. 06/21: Had family meeting with patient's son, sister and ex- along with palliative care. Patient appears to have a terminal condition with persistent bacteremia/sepsis and on further discussion patient's family does not want to proceed with tracheostomy and PEG tube placement however wish to transition to comfort measures only. Changed CODE STATUS to DNR per family's wishes. Plan to proceed with terminal wean and comfort measures only per their wishes. Palliative care following. Time spent on critical care excluding procedures 40 minutes (1) Brain stem hemorrhage Qualifiers: Intracerebral hemorrhage etiology: nontraumatic
--- NOTE | 2018-06-21 15:15 | P.PNNP ---
Subjective Interval history: Patient seen in AM. Condition unchanged. Creatinine at 2.53. Family meeting planned for today. <Azul Lam - Last Filed: 06/21/18 15:12> Physical Exam Vital signs: Vital Signs 06/20/18 16:00 06/20/18 16:06 06/20/18 17:00 Temperature 99.9 F H 99.7 F H Pulse Rate 78 74 Respiratory Rate 22 Blood Pressure 141/65 H 127/61 Pulse Oximetry 100 100 100 06/20/18 18:00 06/20/18 19:00 06/20/18 20:00 Temperature 100.0 F H 100.0 F H 100.2 F H Pulse Rate 74 76 78 Respiratory Rate Blood Pressure 129/63 133/63 138/65 Pulse Oximetry 100 100 100 06/20/18 20:37 06/20/18 21:00 06/20/18 22:00 Temperature 100.2 F H 100.4 F H Pulse Rate 82 77 Respiratory Rate 24 Blood Pressure 133/63 119/56 L Pulse Oximetry 100 100 100 06/20/18 23:00 06/20/18 23:22 06/21/18 00:00 Temperature 100.2 F H 100.4 F H Pulse Rate 92 H 89 Respiratory Rate 25 H Blood Pressure 134/60 133/63 Pulse Oximetry 100 98 93 L 06/21/18 01:00 06/21/18 02:00 06/21/18 03:00 Temperature 100.4 F H 100.6 F H 100.6 F H Pulse Rate 84 91 H 96 H Respiratory Rate Blood Pressure 140/62 141/63 H 150/68 H Pulse Oximetry 100 94 L 91 L 06/21/18 03:32 06/21/18 04:00 06/21/18 05:00 Temperature 100.4 F H 100.4 F H Pulse Rate 97 H 96 H Respiratory Rate 28 H Blood Pressure 157/67 H 143/65 H Pulse Oximetry 94 L 99 100 06/21/18 06:00 06/21/18 07:00 06/21/18 08:00 Temperature 100.4 F H 100.4 F H 100.2 F H Pulse Rate 97 H 92 H 92 H Respiratory Rate Blood Pressure 146/65 H 134/62 135/60 Pulse Oximetry 99 100 100 06/21/18 09:00 06/21/18 09:40 06/21/18 10:00 Temperature 100.0 F H 99.5 F Pulse Rate 85 89 Respiratory Rate 24 Blood Pressure 126/60 133/63 Pulse Oximetry 100 98 100 06/21/18 11:00 06/21/18 12:00 Temperature 99.1 F Pulse Rate 87 118 H Respiratory Rate Blood Pressure 133/62 Pulse Oximetry 100 Intake & Output 06/20/18 06/21/18 06/21/18 18:59 06:59 18:59 Intake Total 305 / 305 1035 / 1035 Output Total 2210 / 2210 1450 / 1450 Balance -1905 / -1905 -415 / -415 Weight 128.5 kg Intake: IV 305 / 305 205 / 205 Teflaro Inj 300 MG In NS Inj 100 / 100 100 / 100 100 ML @ 100 mls/hr IV.SIG Q12H [facility] Rx#:[id number] Cubicin Inj 800 MG In NS Inj 100 / 100 100 ML @ 200 mls/hr IV.SIG Q24H [facility] Rx#:[id number] Keppra Inj 500 MG In NS Inj 100 105 / 105 105 / 105 ML @ 400 mls/hr IV.SIG Q12H [facility] Rx#:[id number] Tube Feeding 330 / 330 Water Bolus Amount 500 / 500 Output: Urine Amount (Catheter) 2210 / 2210 1450 / 1450 Indwelling Urethral Catheter 2210 / 2210 1450 / 1450 Other: Date of Last Bowel Movement 06/20/18 06/20/18 06/20/18 # Bowel Movements 0 Narrative: GENERAL: Alert opens eyes appears to command SKIN: Warm and dry. NECK: Supple, trachea midline. No JVD. CARDIOVASCULAR: Regular rate and rhythm without murmurs, gallops, or rubs. RESPIRATORY: Breath sounds equal bilaterally. No accessory muscle use. GASTROINTESTINAL: Abdomen soft, non-tender, nondistended. MUSCULOSKELETAL: No cyanosis, upper extremity edema, improving. - Urinary Catheter Management Indwelling Urethral Catheter Cath placed during this visit: yes, but has since been removed by the nurse Urethral indwelling: Yes Reason for continuing: Hourly intake/output Insertion date: 06/15/18 Insertion time: 15:00 Removal date: 06/15/18 Removal time: 14:55 <Azul Lam - Last Filed: 06/21/18 15:12> Vital signs: Vital Signs 06/20/18 22:00 06/20/18 23:00 06/20/18 23:22 Temperature 100.4 F H 100.2 F H Pulse Rate 77 92 H Respiratory Rate 25 H Blood Pressure 119/56 L 134/60 Pulse Oximetry 100 100 98 06/21/18 00:00 06/21/18 01:00 06/21/18 02:00 Temperature 100.4 F H 100.4 F H 100.6 F H Pulse Rate 89 84 91 H Respiratory Rate Blood Pressure 133/63 140/62 141/63 H Pulse Oximetry 93 L 100 94 L 06/21/18 03:00 06/21/18 03:32 06/21/18 04:00 Temperature 100.6 F H 100.4 F H Pulse Rate 96 H 97 H Respiratory Rate 28 H Blood Pressure 150/68 H 157/67 H Pulse Oximetry 91 L 94 L 99 06/21/18 05:00 06/21/18 06:00 06/21/18 07:00 Temperature 100.4 F H 100.4 F H 100.4 F H Pulse Rate 96 H 97 H 92 H Respiratory Rate Blood Pressure 143/65 H 146/65 H 134/62 Pulse Oximetry 100 99 100 06/21/18 08:00 06/21/18 09:00 06/21/18 09:40 Temperature 100.2 F H 100.0 F H Pulse Rate 92 H 85 Respiratory Rate 24 Blood Pressure 135/60 126/60 Pulse Oximetry 100 100 98 06/21/18 10:00 06/21/18 11:00 06/21/18 12:00 Temperature 99.5 F 99.1 F Pulse Rate 89 87 118 H Respiratory Rate Blood Pressure 133/63 133/62 Pulse Oximetry 100 100 06/21/18 14:00 06/21/18 16:00 Temperature Pulse Rate 76 75 Respiratory Rate Blood Pressure Pulse Oximetry Intake & Output 06/21/18 06/21/18 06/22/18 06:59 18:59 06:59 Intake Total 1035 / 1035 Output Total 1450 / 1450 Balance -415 / -415 Weight 128.5 kg Intake: IV 205 / 205 Teflaro Inj 300 MG In NS Inj 100 / 100 100 ML @ 100 mls/hr IV.SIG Q12H [facility] Rx#:[id number] Keppra Inj 500 MG In NS Inj 100 105 / 105 ML @ 400 mls/hr IV.SIG Q12H [facility] Rx#:[id number] Tube Feeding 330 / 330 Water Bolus Amount 500 / 500 Output: Urine Amount (Catheter) 1450 / 1450 Indwelling Urethral Catheter 1450 / 1450 Other: Date of Last Bowel Movement 06/20/18 06/20/18 # Bowel Movements 0 - Urinary Catheter Management Indwelling Urethral Catheter Cath placed during this visit: no <Aurelia Powell - Last Filed: 06/21/18 21:28> Assessment and Plan - Assessment (1) Acute kidney failure Code(s): N17.9 - Acute kidney failure, unspecified Status: Acute Plan: Patient with Acute kidney injury, Creatinine started to increase on the 4th at 2.86. NIKKI with FeNA at 2.35 suggestive of ATN possibly from sepsis or contrast nephropathy. AIN in differential also with vancomycin/gentamicin levels elevated on the 4th. Creatinine stable at 2.54, non oliguric. Continue Lasix, and follow the urine out put and BMP. Avoid Nephrotoxins, Family meeting planned for today (2) Bacteremia Code(s): R78.81 - Bacteremia Status: Acute Plan: Antibiotics per ID, renal dose as appropriate (3) Hypernatremia Code(s): E87.0 - Hyperosmolality and hypernatremia Status: Acute Plan: Has resolved with sodium level of 144 (4) Anemia Code(s): D64.9 - Anemia, unspecified Status: Acute Plan: HGB stable at 7.9. monitoring. <Azul Lam - Last Filed: 06/21/18 15:12> - Assessment (1) Acute kidney failure Code(s): N17.9 - Acute kidney failure, unspecified Status: Acute Plan: Patient has no improvement in the Encephalopathy, for with Drawl as per family. (2) Bacteremia Code(s): R78.81 - Bacteremia Status: Acute (3) Hypernatremia Code(s): E87.0 - Hyperosmolality and hypernatremia Status: Acute (4) Anemia Code(s): D64.9 - Anemia, unspecified Status: Acute <Aurelia Powell - Last Filed: 06/21/18 21:28>
--- NOTE | 2018-06-24 11:04 | MB ---
cc: Robert Roth MD DATE: 06/09/2018 REASON FOR CONSULTATION: Left knee pain and swelling. HISTORY OF PRESENT ILLNESS: Currently, the patient is intubated and sedated. History of present illness is obtained from the patient's chart. Mr. Munguia is a 68-year-old male who apparently was found on the floor of his mobile home. He was brought to the hospital with altered mental status on 06/03/2018. Since that time, he has been intubated and sedated and is noted to have left knee swelling. The patient was complaining of left knee pain as well prior to intubation. PAST MEDICAL HISTORY: Significant for type 2 diabetes, hypertension, morbid obesity, sepsis currently. REVIEW OF SYSTEMS: Not possible, the patient is intubated. Tobacco history, does smoke cigarettes. Alcohol history, now negative. MEDICATIONS: Reviewed in chart. ALLERGIES: NO KNOWN DRUG ALLERGIES. IMAGING: MRI of the left knee shows nonspecific joint effusion, moderate synovitis, medial compartment osteoarthritis, medial and lateral meniscal tears. PHYSICAL EXAMINATION: VITAL SIGNS: Pulse rate 85, respiratory rate 28, blood pressure 125/61, pulse oximetry 99%. GENERAL: A 68-year-old male lying in ICU in hospital room. He is intubated and sedated, nonresponsive. SKIN: Warm and dry. HEENT: Head atraumatic, normocephalic. Eyes: Pupils equal and round. Nasal: No bleeding or discharge. NECK: Trachea is midline. No JVD. CARDIOVASCULAR: Regular rate and rhythm. RESPIRATORY: Clear to auscultation. GASTROINTESTINAL: Soft, nontender, nondistended. NEUROLOGIC: Intubated, sedated. MUSCULOSKELETAL: Again, the patient does not follow commands, but in regard to his left lower extremity, which is the reason for consultation, he does have bony prominence over the tibial tubercle consistent with Gideon-Schlatter disease. He has 2 small abrasions on the left knee, one over the tibial tubercle on the lateral aspect. Neither appear infected or erythematous. He does have moderate swelling of the left knee. The calves are soft. Pulses distally are palpable. Capillary refill present. LABORATORY DATA: White blood cell count 13.9, hemoglobin 9.6, hematocrit 29.8, and platelet count 166. PROCEDURES: I spoke via telephone with the patient's son, Abraham Bautista. Discussed the option of aspiration of left knee. The patient's son verbally consented to an aspiration of his father's knee. At bedside, under sterile Betadine prep with the nurse and physical therapist present, I aspirated 60 mL of cloudy serous fluid from the left knee joint without complication. Fluid will be sent to the lab for cell count with crystal analysis, Gram stain, and culture and sensitivity. ASSESSMENT AND PLAN: A 68-year-old male, currently intubated and sedated with brain bleed, sepsis, and left knee swelling. The patient is intubated and sedated and is not responsive. The left knee was aspirated at bedside. Fluid will be sent for analysis. At this point in time, the patient would be able to weightbear as tolerated. Further recommendations based upon lab analysis of left knee aspiration. Thank you for this consultation. The case was discussed with Dr. Diego Roth. Dictated by GER Jarvis MD JUDIE Pratt/annita , 11:20 AM , 11:31 AM
== END 2018-06-21 19:45 | disposition expired ==
LOC: N03 06-03 01:05
PROVIDERS: ADMIT Internal Medicine; ATTEND Internal Medicine